=== PATIENT | female | born 1955 | race American Indian/Alaskan Native ===

== ENCOUNTER 2016-08-06 10:44 | Outpatient (CLI) | payer OTHER ==
--- NOTE | 2016-08-06 14:12 | Mammography Report ---
BILATERAL DIGITAL SCREENING MAMMOGRAM with CAD: 08/06/16 10:44:00 CLINICAL: Routine screening. COMPARISON:09/30/14 and 08/29/13 FINDINGS: The breasts are heterogeneously dense, which may obscure small masses. No mass, architectural distortion or suspicious calcifications. IMPRESSION: No mammographic evidence of malignancy. BI-RADS CATEGORY: 1 - - Negative RECOMMENDATION: Routine mammographic screening in one year. COMMENT: Patient follow-up letters are generated by our [employer] application.
== END 2016-08-06 10:45 | disposition home or self-care (01) ==
LOC: MAMMO 10:44
PROVIDERS: ATTEND General Practice
DX: Z12.31 Encounter for screening mammogram for malignant neoplasm of breast (principal)
CPT/HCPCS: 77067; G0202

== ENCOUNTER 2018-09-18 12:50 | Outpatient (CLI) | payer OTHER ==
--- NOTE | 2018-09-20 09:25 | Mammography Report ---
BILATERAL DIGITAL SCREENING MAMMOGRAM WITH CAD INDICATION: Routine screening mammography. TECHNIQUE: Digital bilateral 2D mammography was obtained in the craniocaudal and mediolateral obliq ue projections. This examination was interpreted with the benefit of Computer-Aided Detection analysi s. COMPARISON: 08/06/2016 FINDINGS: Breast Density: The breasts are heterogeneously dense, which may obscure small masses. No mass, architectural distortion or suspicious calcifications. IMPRESSION:No mammographic evidence of malignancy. BI-RADS Category 1: Negative. No mammographic evidence of malignancy. Recommend routine screening m ammography in one year. A "normal" or negative report should not discourage follow up or biopsy of a clinically significant f inding. A written summary of these findings will be mailed to the patient. The patient will be entered into a mammography reporting system which will generate a reminder letter for the patient's next appointmen t at the appropriate interval. The [employer] recommends yearly mammograms starting at age 40 and continuing as l joe as a woman is in good health. Breast MRI is recommended for women with an approximate 20-25% or greater lifetime risk of breast cancer, including women with a strong family history of breast or ova heather cancer or who have been treated for Hodgkin's disease. Signer Name: Héctor Bernard MD Signed: 09/20/2018 9:20 AM Workstation Name: [id number]
== END 2018-09-18 12:51 | disposition home or self-care (01) ==
LOC: MAMMO 12:50
PROVIDERS: ATTEND Hospitalist
DX: Z12.31 Encounter for screening mammogram for malignant neoplasm of breast (principal)
CPT/HCPCS: 77067

== ENCOUNTER 2019-10-03 07:15 | Outpatient (CLI) | payer OTHER ==
--- NOTE | 2019-10-03 13:10 | Mammography Report ---
DIGITAL SCREENING MAMMOGRAM WITH CAD, 10/03/2019 INDICATION: Routine screening mammography. TECHNIQUE: Digital bilateral 2D mammography was obtained in the craniocaudal and mediolateral obliq ue projections. This examination was interpreted with the benefit of Computer-Aided Detection analysi s. COMPARISON: 09/18/2018, 08/06/2016, 09/30/2014 FINDINGS: Breast Density: The breasts are heterogeneously dense, which may obscure small masses. There is no evidence of dominant mass, suspicious calcifications or architectural distortion in eithe r breast. IMPRESSION: Follow up recommendation: Routine yearly BI-RADS Category 1: Negative. A "normal" or negative report should not discourage follow up or biopsy of a clinically significant f inding. A written summary of these findings will be mailed to the patient. The patient will be entered into a mammography reporting system which will generate a reminder letter for the patient's next appointmen t at the appropriate interval. The [employer] recommends yearly mammograms starting at age 40 and continuing as l joe as a woman is in good health. Breast MRI is recommended for women with an approximate 20-25% or greater lifetime risk of breast cancer, including women with a strong family history of breast or ova heather cancer or who have been treated for Hodgkin's disease. Signer Name: Aisha Hunt MD Signed: 10/03/2019 1:06 PM Workstation Name: [id number]
== END 2019-10-03 07:16 | disposition home or self-care (01) ==
LOC: MAMMO 07:15
PROVIDERS: ATTEND Internal Medicine
DX: Z12.31 Encounter for screening mammogram for malignant neoplasm of breast (principal)
CPT/HCPCS: 77067

== ENCOUNTER 2020-10-03 08:59 | Outpatient (CLI) | payer OTHER ==
--- NOTE | 2020-10-06 10:19 | Mammography Report ---
DIGITAL SCREENING MAMMOGRAM WITH CAD, 10/03/2020 CLINICAL INFORMATION / INDICATION: Routine screening mammography. SCREENING MAMMOGRAM TECHNIQUE: Digital bilateral 2D mammography was obtained in the craniocaudal and mediolateral obliqu e projections. This examination was interpreted with the benefit of Computer-Aided Detection analysis . COMPARISON: 10/03/2019 FINDINGS: Breast Density: The breasts are heterogeneously dense, which may obscure small masses. No dominant mass, suspicious calcifications, or architectural distortion in either breast. Largely unchanged nodular densities in the breasts, commonly fibroglandular or fibrocystic change. IMPRESSION: No mammographic evidence of malignancy. Follow up recommendation: Routine yearly BI-RADS Category 2: Benign. A "normal" or negative report should not discourage follow up or biopsy of a clinically significant f inding. A written summary of these findings will be mailed to the patient. The patient will be entered into a mammography reporting system which will generate a reminder letter for the patient's next appointmen t at the appropriate interval. The [employer] recommends yearly mammograms starting at age 40 and continuing as l joe as a woman is in good health. Breast MRI is recommended for women with an approximate 20-25% or greater lifetime risk of breast cancer, including women with a strong family history of breast or ova heather cancer or who have been treated for Hodgkin's disease. Signer Name: Luis Villarreal MD Signed: 10/06/2020 10:14 AM Workstation Name: [id number]
== END 2020-10-03 09:00 | disposition home or self-care (01) ==
LOC: MAMMO 08:59
PROVIDERS: ATTEND Internal Medicine
DX: Z12.31 Encounter for screening mammogram for malignant neoplasm of breast (principal)
CPT/HCPCS: 77067

== ENCOUNTER 2020-11-23 13:00 | Emergency (ER) | payer OTHER ==
--- NOTE | 2020-11-23 13:55 | Emergency Department Report ---
HPI - General Chief Complaint: Rectal Pain Time Seen by Provider: 11/23/20 13:33 - HPI HPI: MSE 5 The patient is a 65-year-old female present with a chief complaint of rectal bleeding. The patient states for the past 3 months she has had rectal bleeding anytime she tries to eat a meal. The patient has a history of hemorrhoids and states they were banded in the spring 2020. The patient states she has not contacted her parking lot spotter about the rectal bleeding since it began 3 months ago. Patient denies abdominal pain but states she has the discomfort of constipation at times. Patient denies nausea/vomiting. Patient denies history of fever or unexplained weight loss. Patient denies rectal pain while having a bowel movement. Patient denies shortness of breath or dizziness. Patient denies fever ED Past Medical Hx - Past Medical History Previous Medical History?: Yes - Surgical History Past Surgical History?: Yes Additional Surgical History: Hemorrhoids banded spring 2020 - Family History Family history: no significant - Social History Smoking Status: Former Smoker (None for over 20 years) Substance Use Type: None (Denies illicit drug use) - Medications Home Medications: Home Medications Medication Instructions Recorded Confirmed Last Taken Type DOXYCYCLINE Hyclate [Vibramycin 100 mg PO Q12H #14 capsule 08/09/13 Unknown Rx CAP] Cyclobenzaprine [Flexeril 10 MG 10 mg PO QHS #20 tablet 01/20/18 Unknown Rx TAB] Ibuprofen [Motrin 800 MG tab] 800 mg PO TID #30 tablet 01/20/18 Unknown Rx Ciprofloxacin HCl 500 mg PO BID #14 tablet 11/23/20 Unknown Rx metroNIDAZOLE [Flagyl] 500 mg PO Q8HR #21 tablet 11/23/20 Unknown Rx ED Review of Systems ROS: Stated complaint: HEMORRHOIDS/BLEEDING PASSING CLOTS Other details as noted in HPI Constitutional: denies: fever Eyes: denies: eye pain ENT: throat pain Respiratory: denies: shortness of breath Cardiovascular: denies: chest pain Endocrine: no symptoms reported Gastrointestinal: hematochezia. denies: abdominal pain, nausea, vomiting, hematemesis Genitourinary: denies: dysuria Musculoskeletal: denies: back pain Neurological: denies: headache Physical Exam - Physical Exam Vital Signs: Vital Signs 11/23/20 13:21 Temperature 97.8 F Pulse Rate 91 H Respiratory 18 Rate Blood Pressure 139/78 [Right] O2 Sat by Pulse 100 Oximetry Physical Exam: GENERAL: The patient is well-developed well-nourished female sitting in chair not appearing to be in acute distress HEENT: Normocephalic. Atraumatic. Extraocular motions are intact. Patient has moist mucous membranes. NECK: Supple. Trachea midline CHEST/LUNGS: Clear to auscultation. There is no respiratory distress noted. HEART/CARDIOVASCULAR: Regular. There is no tachycardia. There is no gallop rub or murmur. ABDOMEN: Abdomen is soft, nontender. Patient has normal bowel sounds. There is no abdominal distention. SKIN: There is no rash. There is no edema. There is no diaphoresis. NEURO: The patient is awake, alert, and oriented. The patient is cooperative. The patient has no focal neurologic deficits. The patient has normal speech and gait. MUSCULOSKELETAL: There is no evidence of acute injury. RECTAL: ED Course Vital Signs 11/23/20 13:21 Temperature 97.8 F Pulse Rate 91 H Respiratory 18 Rate Blood Pressure 139/78 [Right] O2 Sat by Pulse 100 Oximetry - Consultations Consultation #1: 11/23/20 17:09 GI paged 11/23/20 17:[address] findings discussed with GI and Dr. Rose-recommends ciprofloxacin 500 mg twice daily and Flagyl 500 mg 3 times daily x7 days and GI follow-up. ED Medical Decision Making - Lab Data Result diagrams: 11/23/20 14:03 11/23/20 14:03 Laboratory Tests 11/23/20 11/23/20 11/23/20 14:03 14:03 14:03 WBC 11.3 H RBC 3.44 L Hgb 10.8 Hct 31.9 MCV 93 MCH 32 MCHC 34 RDW 16.4 H Plt Count 302 Lymph % (Auto) 18.9 [place] % (Auto) 8.4 H Eos % (Auto) 8.7 H Baso % (Auto) 0.6 Lymph # (Auto) 2.2 [place] # (Auto) 1.0 H Eos # (Auto) 1.0 H Baso # (Auto) 0.1 Add Manual Diff Complete Total Counted 100 Seg Neutrophils % 63.4 Seg Neuts % (Manual) 60.0 Band Neutrophils % 1.0 Lymphocytes % (Manual) 14.0 Monocytes % (Manual) 7.0 Eosinophils % (Manual) 16.0 H Metamyelocytes % 2.0 Nucleated RBC % Not Reportable Seg Neutrophils # 7.4 Seg Neutrophils # Man 6.8 Band Neutrophils # 0.1 Lymphocytes # (Manual) 1.6 Abs React Lymphs (Man) 0.0 Monocytes # (Manual) 0.8 Eosinophils # (Manual) 1.8 H Basophils # (Manual) 0.0 Metamyelocytes # 0.2 Myelocytes # 0.0 Promyelocytes # 0.0 Blast Cells # 0.0 WBC Morphology Not Reportable Hypersegmented Neuts Not Reportable Hyposegmented Neuts Not Reportable Hypogranular Neuts Not Reportable Smudge Cells Not Reportable Toxic Granulation Not Reportable Toxic Vacuolation Not Reportable Dohle Bodies Not Reportable Pelger-Huet Anomaly Not Reportable Lisandro Rods Not Reportable Platelet Estimate Consistent w auto Clumped Platelets Not Reportable Plt Clumps, EDTA Not Reportable Large Platelets Not Reportable Giant Platelets Not Reportable Platelet Satelliting Not Reportable Plt Morphology Comment Not Reportable RBC Morphology Not Reportable Dimorphic RBCs Not Reportable Polychromasia Not Reportable Hypochromasia Not Reportable Poikilocytosis Not Reportable Anisocytosis 1+ Microcytosis Not Reportable Macrocytosis Not Reportable Spherocytes Not Reportable Pappenheimer Bodies Not Reportable Sickle Cells Not Reportable Target Cells Not Reportable Tear Drop Cells Not Reportable Ovalocytes Not Reportable Helmet Cells Not Reportable Steele-Bennett Bodies Not Reportable Garner Rings Not Reportable [place] Cells Not Reportable Bite Cells Not Reportable Crenated Cell Not Reportable Elliptocytes Not Reportable Acanthocytes (Spur) Not Reportable Rouleaux Not Reportable Hemoglobin C Crystals Not Reportable Schistocytes Not Reportable Malaria parasites Not Reportable [place] Bodies Not Reportable Hem Pathologist Commnt No PT 13.3 INR 0.96 APTT 27.3 Sodium 145 Potassium 4.0 Chloride 109.6 H Carbon Dioxide 27 Anion Gap 12 BUN 16 Creatinine 0.5 L Estimated GFR > 60 BUN/Creatinine Ratio 32 Glucose 115 H Calcium 8.9 Total Bilirubin 0.30 AST 14 ALT 12 Alkaline Phosphatase 70 Total Protein 6.6 Albumin 3.2 L Albumin/Globulin Ratio 0.9 - Radiology Data Radiology results: report reviewed (CT abdomen pelvis), image reviewed (CT abdomen pelvis) [facility] [address] [place] [address] Cat Scan Report Signed Patient: ANGUS ABBASI MR#: [id number] : 1955 Acct:[id number] Age/Sex: 65 / F ADM Date: 11/23/20 Loc: ED Attending Dr: Ordering Physician: CUCA ALARCON MD Date of Service: 11/23/20 Procedure(s): CT angio abdomen pelvis Accession Number(s): [id number] cc: CUCA ALARCON MD CTA ABDOMEN AND PELVIS with IV CONTRAST INDICATION / CLINICAL INFORMATION: Rectal bleeding. TECHNIQUE: Axial CT images were obtained through the abdomen and pelvis after injection of 100 mL of Omnipaque 350 IV contrast. 3 plane MIP / 3D reconstructions were produced. All CT scans at this location are performed using CT dose reduction for ALARA by means of automated exposure control. COMPARISON: None available. FINDINGS: Vascular Findings: Moderate atherosclerotic calcification of the aortoiliac system. There is no evidence of aneurysm. No significant flow-limiting stenosis or occlusion.. Nonvascular Findings: Nonobstructive bilateral nephrolithiasis. There is no ureteral calculus or hydronephrosis. Small hiatal hernia. Small bowel is normal in caliber. There is moderate colonic stool burden within the proximal colon. Diffuse mural thickening of the sigmoid colon and rectum with mucosal enhancement and mild pericolonic inflammatory stranding. Nonspecific prominent perirectal lymph nodes are likely reactive. No evidence of active intraluminal hemorrhage. Skeletal Structures: Scattered degenerative changes of the spine. No acute abnormality identified. IMPRESSION: 1. Mural thickening, mucosal enhancement and mild inflammatory stranding involving the sigmoid colon and rectum, most compatible with acute infectious or inflammatory proctocolitis. No evidence of active intraluminal hemorrhage. 2. Otherwise, no acute abnormality. Signer Name: Danielito Carter MD Signed: 11/23/2020 5:01 PM Workstation Name: [id number] Transcribed By: JASSON Dictated By: DANIELITO CARTER MD Electronically Authenticated By: DANIELITO CARTER MD Signed Date/Time: 11/23/20 170 DD/ 55 TD/TT: Print Cancel - Differential Diagnosis Hemorrhoids, anal fissure, diverticulosis, colonic mass Critical care attestation.: If time is entered above; I have spent that time in minutes in the direct care of this critically ill patient, excluding procedure time. ED Disposition Clinical Impression: Proctocolitis, Rectal bleeding Disposition: 01 HOME / SELF CARE / HOMELESS Is pt being admited?: No Does the pt Need Aspirin: No Condition: Stable Instructions: Rectal Bleeding, [id number] Additional Instructions: Return to the emergency department should you develop worsening symptoms, inability to tolerate food or liquids, high fever or any other concerns Prescriptions: Ciprofloxacin HCl 500 mg PO BID #14 tablet metroNIDAZOLE [Flagyl] 500 mg PO Q8HR #21 tablet Referrals: DIONNE ROSE MD [Staff Physician] - [facility] (Dr. Rose is a parking lot spotter. Please follow-up with him or your parking lot spotter for further evaluation) Time of Disposition: 17:27
[2020-11-23 14:25] LABS: Hematocrit 31.9 % (30.3-42.9); Hemoglobin 10.8 gm/dl (10.1-14.3); Mean Corpuscular HGB Conc 34 % (30-34); Mean Corpuscular Volume 93 fl (79-97); Platelet Count 302 K/mm3 (140-440); Red Blood Count 3.44 M/mm3 (3.65-5.03); Red Cell Distribution Width 16.4 % (13.2-15.2)
[2020-11-23 14:36] LABS: INR 0.96 (0.87-1.13); Partial Thromboplastin Time 27.3 Sec. (24.2-36.6)
[2020-11-23 14:43] LABS: Alanine Aminotransferase 12 units/L (7-56); Albumin 3.2 g/dL (3.9-5); Blood Urea Nitrogen 16 mg/dL (7-17); Calcium 8.9 mg/dL (8.4-10.2); Hemolysis Index 0
[2020-11-23 14:49] LABS: BUN/Creatinine Ratio 32
[2020-11-23 15:17] LABS: Band Neutrophils # (Manual) 0.1 K/mm3; Basophils # (Auto) 0.1 K/mm3 (0.0-0.1); Basophils % (Auto) 0.6 % (0.0-1.8); Eosinophils % (Auto) 8.7 % (0.0-4.3); Lymphocytes # (Auto) 2.2 K/mm3 (1.2-5.4); Lymphocytes % (Auto) 18.9 % (13.4-35.0); Monocytes % (Auto) 8.4 % (0.0-7.3); Total Cells Counted 100
[2020-11-23 15:18] LABS: Anisocytosis 1+; Platelet Estimate Consistent w Auto
[2020-11-23 15:54] VITALS: BP 119/88
--- NOTE | 2020-11-23 17:06 | Cat Scan Report ---
CTA ABDOMEN AND PELVIS with IV CONTRAST INDICATION / CLINICAL INFORMATION: Rectal bleeding. TECHNIQUE: Axial CT images were obtained through the abdomen and pelvis after injection of 100 mL of Omnipaque 3 50 IV contrast. 3 plane MIP / 3D reconstructions were produced. All CT scans at this location are per formed using CT dose reduction for ALARA by means of automated exposure control. COMPARISON: None available. FINDINGS: Vascular Findings: Moderate atherosclerotic calcification of the aortoiliac system. There is no evide nce of aneurysm. No significant flow-limiting stenosis or occlusion.. Nonvascular Findings: Nonobstructive bilateral nephrolithiasis. There is no ureteral calculus or hydr onephrosis. Small hiatal hernia. Small bowel is normal in caliber. There is moderate colonic stool bu rden within the proximal colon. Diffuse mural thickening of the sigmoid colon and rectum with mucosal enhancement and mild pericolonic inflammatory stranding. Nonspecific prominent perirectal lymph node s are likely reactive. No evidence of active intraluminal hemorrhage. Skeletal Structures: Scattered degenerative changes of the spine. No acute abnormality identified. IMPRESSION: 1. Mural thickening, mucosal enhancement and mild inflammatory stranding involving the sigmoid colon and rectum, most compatible with acute infectious or inflammatory proctocolitis. No evidence of activ e intraluminal hemorrhage. 2. Otherwise, no acute abnormality. Signer Name: Paul Carter MD Signed: 11/23/2020 5:01 PM Workstation Name: [id number]
== END 2020-11-23 17:58 | disposition home or self-care (01) ==
LOC: ED 13:00
DX: K52.89 Other specified noninfective gastroenteritis and colitis (principal); K62.5 Hemorrhage of anus and rectum; Z98.890 Other specified postprocedural states; Z87.891 Personal history of nicotine dependence
CPT/HCPCS: 36415; 74174; 80053; 82271; 85007; 85025; 85610; 85730; 99284; Q9967

== ENCOUNTER 2021-02-21 22:52 | Inpatient (IN) | payer SELFPAY, OTHER ==
[2021-02-21] MEDS ORDERED: dexAMETHasone 4 MG/ML VIAL IV ONE (23:03)
--- NOTE | 2021-02-22 | XRay Report ---
CHEST 1 VIEW INDICATION / CLINICAL INFORMATION: Dyspnea. COMPARISON: None available. FINDINGS: SUPPORT DEVICES: None. HEART / MEDIASTINUM: No significant abnormality. LUNGS / PLEURA: No significant pulmonary or pleural abnormality. No pneumothorax. Please note that ev aluation of the lung parenchyma is somewhat obscured by overlying materials. ADDITIONAL FINDINGS: There is moderate elevation of the right hemidiaphragm which is chronic. IMPRESSION: 1. No acute findings. Signer Name: Clover Easley MD Signed: 02/21/2021 11:56 PM Workstation Name: [id number]
[2021-02-22 00:08] LABS: Hematocrit 29.7 % (30.3-42.9); Hemoglobin 9.1 gm/dl (10.1-14.3); Mean Corpuscular HGB Conc 31 % (30-34); Mean Corpuscular Volume 102 fl (79-97); Platelet Count 232 K/mm3 (140-440); Red Blood Count 2.91 M/mm3 (3.65-5.03)
[2021-02-22] MEDS ORDERED: cefTRIAXone/NS 1 GM/50 ML 1 GM/50 ML BAG IV ONE (00:16)
[2021-02-22] MEDS ORDERED: SODIUM CHLORIDE 0.9% 1000 ML 1,000 ML IV ONE (00:17)
[2021-02-22 00:25] LABS: INR 1.05 (0.87-1.13)
[2021-02-22 00:27] LABS: Red Cell Distribution Width 20.5 % (13.2-15.2)
[2021-02-22 00:32] LABS: Creatine Kinase MB 2.9 ng/mL (0.0-4.0)
[2021-02-22 00:33] LABS: Alanine Aminotransferase 10 units/L (7-56); Albumin 2.7 g/dL (3.9-5); Blood Urea Nitrogen 9 mg/dL (7-17); Calcium 8.2 mg/dL (8.4-10.2); Hemolysis Index 6
[2021-02-22 00:43] LABS: BUN/Creatinine Ratio 15
--- NOTE | 2021-02-22 00:44 | Emergency Department Report ---
ED Shortness of Breath HPI - General Chief Complaint: Dyspnea/Respdistress Stated Complaint: RESP DISTRESS Time Seen by Provider: 02/21/21 22:58 Source: patient Mode of arrival: Stretcher Limitations: No Limitations - History of Present Illness MD Complaint: shortness of breath -: Gradual, days(s) Consistency: constant Improves With: oxygen Worsens With: nothing Known History Of: other Context: recent URI - Related Data Home Oxygen Therapy: No Previous Rx's Medication Instructions Recorded Last Taken Type DOXYCYCLINE Hyclate [Vibramycin 100 mg PO Q12H #14 capsule 08/09/13 Unknown Rx CAP] Cyclobenzaprine [Flexeril 10 MG 10 mg PO QHS #20 tablet 01/20/18 Unknown Rx TAB] Ibuprofen [Motrin 800 MG tab] 800 mg PO TID #30 tablet 01/20/18 Unknown Rx Ciprofloxacin HCl 500 mg PO BID #14 tablet 11/23/20 Unknown Rx metroNIDAZOLE [Flagyl] 500 mg PO Q8HR #21 tablet 11/23/20 Unknown Rx Allergies Allergy/AdvReac Type Severity Reaction Status Date / Time lisinopril AdvReac Anaphylaxis Verified 02/22/21 00:02 ED Review of Systems ROS: Stated complaint: RESP DISTRESS Other details as noted in HPI Constitutional: denies: chills, fever Eyes: denies: eye pain, eye discharge, vision change ENT: denies: ear pain, throat pain Respiratory: denies: cough, shortness of breath, wheezing Cardiovascular: denies: chest pain, palpitations Endocrine: no symptoms reported Gastrointestinal: denies: abdominal pain, nausea, diarrhea Genitourinary: denies: urgency, dysuria, discharge Musculoskeletal: denies: back pain, joint swelling, arthralgia Skin: denies: rash, lesions Neurological: denies: headache, weakness, paresthesias Psychiatric: denies: anxiety, depression Hematological/Lymphatic: denies: easy bleeding, easy bruising ED Past Medical Hx - Past Medical History Previous Medical History?: Yes Additional medical history: hemorrhoids that have been banded in the past per pt, HYPOKALEMIA, PE - Surgical History Additional Surgical History: Hemorrhoids banded spring 2020, IVC PLACEMENT - Social History Smoking Status: Former Smoker (None for over 20 years) Substance Use Type: None (Denies illicit drug use) - Medications Home Medications: Home Medications Medication Instructions Recorded Confirmed Last Taken Type DOXYCYCLINE Hyclate [Vibramycin 100 mg PO Q12H #14 capsule 08/09/13 Unknown Rx CAP] Cyclobenzaprine [Flexeril 10 MG 10 mg PO QHS #20 tablet 01/20/18 Unknown Rx TAB] Ibuprofen [Motrin 800 MG tab] 800 mg PO TID #30 tablet 01/20/18 Unknown Rx Ciprofloxacin HCl 500 mg PO BID #14 tablet 11/23/20 Unknown Rx metroNIDAZOLE [Flagyl] 500 mg PO Q8HR #21 tablet 11/23/20 Unknown Rx ED Physical Exam - General Limitations: No Limitations General appearance: alert, in distress - Head Head exam: Present: atraumatic, normocephalic - Eye Eye exam: Present: normal appearance - ENT ENT exam: Present: mucous membranes moist - Neck Neck exam: Present: normal inspection - Respiratory Respiratory exam: Present: normal lung sounds bilaterally, rales, accessory muscle use. Absent: respiratory distress - Cardiovascular Cardiovascular Exam: Present: regular rate, tachycardia. Absent: systolic murmur, diastolic murmur, rubs, gallop - GI/Abdominal GI/Abdominal exam: Present: soft, normal bowel sounds - Extremities Exam Extremities exam: Present: normal inspection - Back Exam Back exam: Present: normal inspection - Neurological Exam Neurological exam: Present: alert, oriented X3 - Psychiatric Psychiatric exam: Present: normal affect, normal mood - Skin Skin exam: Present: warm, dry, intact, normal color. Absent: rash ED Course Vital Signs 02/21/21 02/22/21 23:02 00:00 Temperature 97.4 F L Pulse Rate 156 H 148 H Respiratory 24 23 Rate Blood Pressure 79/40 88/42 [Right] O2 Sat by Pulse 72 L 92 Oximetry ED Medical Decision Making - Lab Data Result diagrams: 02/21/21 23:50 02/21/21 23:50 Critical care attestation.: If time is entered above; I have spent that time in minutes in the direct care of this critically ill patient, excluding procedure time. ED Disposition Clinical Impression: SOB (shortness of breath), Acute hypoxemic respiratory failure due to COVID-19 Disposition: 09 ADMITTED INPATIENT Is pt being admited?: Yes Does the pt Need Aspirin: No Condition: Critical Referrals: PRIMARY CARE,MD [Primary Care Provider] - 3-5 Days
[2021-02-22 01:52] LABS: HDL Cholesterol 46 mg/dL (40-59); LDL Cholesterol,Direct 100 mg/dL (50-130)
[2021-02-22] MEDS ORDERED: ALBUTEROL 2.5 MG/3 ML NEBU IH PRN (02:24)
[2021-02-22] MEDS ORDERED: MORPHINE 2 MG/1 ML INJ IV PRN (02:24)
[2021-02-22] MEDS ORDERED: ONDANSETRON 4 MG/2 ML INJ IV PRN (02:24)
[2021-02-22] MEDS ORDERED: HYDROmorphone 1 MG/1 ML INJ IV PRN (02:24)
--- NOTE | 2021-02-22 02:32 | History and Physical Report ---
History of Present Illness Date of examination: 02/22/21 Date of admission: 02/22/21 00:43 Chief complaint: Dyspnea Respiratory distress History of present illness: 65 years old female with past medical history of hypokalemia, PE and former tobacco abuse was brought to the hospital because of progressive shortness of breath for last 1 to 2 days. Shortness of breath is gradual improved with oxygen . Patient has recent episode of upper respiratory tract infection In the emergency room patient initial O2 sat was 72% which is improved with 50% Ventimask to 92%. We are going to admit the patient with a diagnosis of suspected PUI/Covid Past History Past Medical History: other (PE. Hypokalemia. Hemorrhoid. Former tobacco abuser) Medications and Allergies Allergies Allergy/AdvReac Type Severity Reaction Status Date / Time lisinopril AdvReac Anaphylaxis Verified 02/22/21 00:02 Home Medications Medication Instructions Recorded Confirmed Last Taken Type DOXYCYCLINE Hyclate [Vibramycin 100 mg PO Q12H #14 capsule 08/09/13 Unknown Rx CAP] Cyclobenzaprine [Flexeril 10 MG 10 mg PO QHS #20 tablet 01/20/18 Unknown Rx TAB] Ibuprofen [Motrin 800 MG tab] 800 mg PO TID #30 tablet 01/20/18 Unknown Rx Ciprofloxacin HCl 500 mg PO BID #14 tablet 11/23/20 Unknown Rx metroNIDAZOLE [Flagyl] 500 mg PO Q8HR #21 tablet 11/23/20 Unknown Rx Review of Systems All systems: negative Cardiovascular: shortness of breath Respiratory: cough, shortness of breath, congestion Exam - Constitutional Vitals: Temp Pulse Resp BP Pulse Ox 97.4 F L 132 H 20 87/53 98 02/21/21 23:02 02/22/21 01:00 02/22/21 01:00 02/22/21 01:00 02/22/21 01:00 General appearance: Present: no acute distress, well-nourished - EENT Eyes: Present: PERRL ENT: hearing intact, clear oral mucosa - Neck Neck: Present: supple, normal ROM - Respiratory Respiratory effort: normal Respiratory: bilateral: diminished - Cardiovascular Heart Sounds: Present: S1 & S2. Absent: rub, click - Extremities Extremities: pulses symmetrical, No edema Peripheral Pulses: within normal limits - Abdominal General gastrointestinal: Present: soft, non-tender, non-distended, normal bowel sounds Female genitourinary: Present: normal - Integumentary Integumentary: Present: clear, warm, dry - Musculoskeletal Musculoskeletal: gait normal, strength equal bilaterally - Psychiatric Psychiatric: appropriate mood/affect, intact judgment & insight - Neurologic Neurologic: CNII-XII intact, moves all extremities HEART Score - HEART Score Troponin: Troponin T 0.104 ng/mL (0.00-0.029) H* 02/21/21 23:50 Results - Labs CBC & Chem 7: 02/21/21 23:50 02/21/21 23:50 Labs: Laboratory Last Values WBC 10.8 K/mm3 (4.5-11.0) 02/21/21 23:50 RBC 2.91 M/mm3 (3.65-5.03) L 02/21/21 23:50 Hgb 9.1 gm/dl (10.1-14.3) L 02/21/21 23:50 Hct 29.7 % (30.3-42.9) L 02/21/21 23:50 MCV 102 fl (79-97) H 02/21/21 23:50 MCH 31 pg (28-32) 02/21/21 23:50 MCHC 31 % (30-34) 02/21/21 23:50 RDW 20.5 % (13.2-15.2) H 02/21/21 23:50 Plt Count 232 K/mm3 (140-440) 02/21/21 23:50 PT 14.9 Sec. (12.2-14.9) 02/21/21 23:50 INR 1.05 (0.87-1.13) 02/21/21 23:50 Sodium 139 mmol/L (137-145) 02/21/21 23:50 Potassium 4.2 mmol/L (3.6-5.0) 02/21/21 23:50 Chloride 103.5 mmol/L (98-107) 02/21/21 23:50 Carbon Dioxide 20 mmol/L (22-30) L 02/21/21 23:50 Anion Gap 20 mmol/L 02/21/21 23:50 BUN 9 mg/dL (7-17) 02/21/21 23:50 Creatinine 0.6 mg/dL (0.6-1.2) 02/21/21 23:50 Estimated GFR > 60 ml/min 02/21/21 23:50 BUN/Creatinine Ratio 15 % 02/21/21 23:50 Glucose 198 mg/dL (65-100) H 02/21/21 23:50 Lactic Acid 2.10 mmol/L (0.7-2.0) H* 02/22/21 01:14 Calcium 8.2 mg/dL (8.4-10.2) L 02/21/21 23:50 Magnesium 1.80 mg/dL (1.7-2.3) 02/21/21 23:50 Total Bilirubin 0.40 mg/dL (0.1-1.2) 02/21/21 23:50 AST 15 units/L (5-40) 02/21/21 23:50 ALT 10 units/L (7-56) 02/21/21 23:50 Alkaline Phosphatase 62 units/L (35-129) 02/21/21 23:50 Total Creatine Kinase 17 units/L (30-135) L 02/21/21 23:50 CK-MB (CK-2) 2.9 ng/mL (0.0-4.0) 02/21/21 23:50 CK-MB (CK-2) Rel Index 17.0 (0-4) H 02/21/21 23:50 Troponin T 0.104 ng/mL (0.00-0.029) H* 02/21/21 23:50 Total Protein 5.3 g/dL (6.3-8.2) L 02/21/21 23:50 Albumin 2.7 g/dL (3.9-5) L 02/21/21 23:50 Albumin/Globulin Ratio 1.0 % 02/21/21 23:50 Triglycerides 93 mg/dL (2-149) 02/21/21 23:50 Cholesterol 161 mg/dL (50-199) 02/21/21 23:50 LDL Cholesterol Direct 100 mg/dL (50-130) 02/21/21 23:50 HDL Cholesterol 46 mg/dL (40-59) 02/21/21 23:50 Cholesterol/HDL Ratio 3.50 % 02/21/21 23:50 Lipase 24 units/L (13-60) 02/21/21 23:50 - Imaging and Cardiology Chest x-ray: report reviewed Assessment and Plan VTE prophylaxis?: Chemical Plan of care discussed with patient/family: Yes - Patient Problems (1) Acute hypoxemic respiratory failure due to COVID-19 Current Visit: Yes Status: Acute Plan to address problem: Admit the patient to the medical floor. Oxygen 50% Ventimask. DuoNeb by nebulizer every 4 hours. Albuterol via nebulizer every 4 hours as needed. Rocephin 2 g IV daily. Zithromax 500 mg IV daily. Dexamethasone 6 mg IV daily. We do the blood culture and sputum culture. We will send the Covid PCR. Follow Covid inflammatory marker. Will consult infectious disease for evaluation. (2) SOB (shortness of breath) Current Visit: Yes Status: Acute Plan to address problem: Oxygen by 50% Ventimask. DuoNeb by nebulizer every 4 hours. Albuterol via nebulizer every 4 hours as needed (3) Hemorrhoid Current Visit: Yes Status: Acute Plan to address problem: Hemorrhoid branded in spring 2020 (4) DVT prophylaxis Current Visit: Yes Status: Acute Plan to address problem: Heparin 5000 units subcu every 8 hours for DVT prophylaxis. Pepcid 20 mg p.o. twice daily for GI prophylaxis. Patient is a full code
[2021-02-22 02:47] LABS: Band Neutrophils # (Manual) 1.6 K/mm3; Total Cells Counted 100
[2021-02-22 02:48] LABS: Anisocytosis 1+; Platelet Estimate Consistent w Auto
[2021-02-22] MEDS: AZITHROMYCIN/NS 500 MG/250 ML 500 MG/250 ML BAG IV SCH (05:51)
[2021-02-22] MEDS ORDERED: HEPARIN 5,000 UNIT/1 ML VIAL SUB-Q SCH (06:00)
[2021-02-22] MEDS: IBUPROFEN 800 MG TAB PO SCH ×3 (08:10→21:24)
--- NOTE | 2021-02-22 08:19 | Progress Note ---
Assessment and Plan Assessment and plan: History of present illness: 65 years old female with past medical history of hypokalemia, PE and former tobacco abuse was brought to the hospital because of progressive shortness of breath for last 1 to 2 days. Shortness of breath is gradual improved with oxygen . Patient has recent episode of upper respiratory tract infection In the emergency room patient initial O2 sat was 72% which is improved with 50% Ventimask to 92%. We are going to admit the patient with a diagnosis of suspected PUI/Covid Hospital course: 02/22/2021: Patient primary complaint is shortnes of breath and dizziness. orthostatic vitals, echo, mri, neuro consult ordered. Has a history of pulmonary embolism but cannot anticoagulate. Elevated troponin noted. Suspect PE related but will follow cardiology recommendations. Doubt cardiac etiology. Assessment and plan: #Acute hypoxic respiratory failure - Admit the patient to the medical floor. - Oxygen 50% Ventimask currently, SPO2: 96% on my encounter -DuoNeb by nebulizer every 4 hours. -Albuterol via nebulizer every 4 hours as needed. -Rocephin 2 g IV daily. Zithromax 500 mg IV daily. Dexamethasone 6 mg IV daily. -We do the blood culture and sputum culture. -We will send the Covid PCR. Follow Covid inflammatory marker. - Will consult infectious disease for evaluation. #Dizziness/vertigo -Onset was approximately 1 month ago. has persisted and patient now unable to walk -Unclear etiology, suspect orthostatic hypotension given low blood pressure readings with improvement in positional changes -orthostatic vitals ordered -ECHO ordered -MRI ordered -neurology consult placed. #History of pulmonary embolism/DVT -Diagnosed with DVT in the past was started on anticoagulation however developed rectal bleeding -will request records -Status post IVC filter -Could explain elevated troponin #Elevated troponin -Unclear if this is an NSTEMI, patient does not complain of any chest pain however she is short of breath. -Suspect this is supply demand versus underlying pulmonary embolism diagnosed at [place] -Troponin 0.104 -Echocardiogram ordered -ECG ordered -Atorvastatin ordered, will hold off on heparin drip due to history of rectal bleeding. Will hold off on beta-renato due to patient dizziness and suspicion for orthostatic hypotension Cardiology consulted #Person under investigation for COVID-19 - low suspicion, patient is vaccinated x 3, afebrile, no reports of muscle aches, cough, congestion. - COVID PCR ordered on admission #History of rectal bleeding - avoid anticoagulation #History of IVC filter - history of recurrent dvt. - obtained filter last month at [facility]. History Interval history: On my encounter, patient described to me her last 2-month hospital course. She had been originally admitted to [facility] approximately 2 months ago for deep vein thrombosis. She was started on anticoagulant at the time of discharge. She states that she had a subsequent hospital shortly after where s he developed rectal bleeding and had shortness of breath. She says that she underwent CT chest which demonstrated bilateral pulmonary embolism. She received an IVC filter and was told not to continue anticoagulants. She was subsequently discharged to a rehab facility. Patient had been in rehab facility last week or so and states that she has had continued issues with leg pain, dizziness, shortness of breath. Anytime the patient tries to ambulate she states that she becomes very dizzy and has to return to a seated position. She has no prior cardiac work-up to her knowledge and no significant cardiac history. Patient states that she is not a smoker. She denies any family history of cardiac issues. On my encounter her primary complaint was shortness of breath and dizziness. There are a few hypotensive recordings in the chart. Discussed with RN who stated patient was repositioned and her blood pressure improved. Discussed with RN regarding obtaining orthostatic vitals. Hospitalist Physical - Physical exam Narrative exam: Physical Exam: VITAL SIGNS: Reviewed. GENERAL: The patient appears normally developed, Vital signs as documented. ventimask in place, appears comfortable. HEAD: No signs of head trauma. EYES: Pupils are equal. Extraocular motions intact. EARS: Hearing grossly intact. MOUTH: Oropharynx is normal. NECK: No adenopathy, no JVD. CHEST: Chest with clear breath sounds bilaterally. CARDIAC: Regular rate and rhythm. S1 and S2, without murmurs, gallops, or rubs. VASCULAR: No Edema. Peripheral pulses normal and equal in all extremities. ABDOMEN: Soft, non tender and non distended. No rebound or guarding, and no masses palpated. Bowel Sounds normal. MUSCULOSKELETAL: Good range of motion of all major joints. Extremities without clubbing, cyanosis or edema. NEUROLOGIC EXAM: Alert and oriented x 4. no focal sensory or strength deficits. PSYCHIATRIC: Mood normal. SKIN: detail exam as documented in skin assessment - Constitutional Vitals: Temp Pulse Resp BP Pulse Ox 97.4 F L 103 H 18 89/60 98 02/21/21 23:02 02/22/21 07:00 02/22/21 07:00 02/22/21 07:00 02/22/21 07:00 General appearance: Present: no acute distress, well-nourished HEART Score - HEART Score Troponin: Troponin T 0.104 ng/mL (0.00-0.029) H* 02/21/21 23:50 Results - Labs CBC & Chem 7: 02/21/21 23:50 02/21/21 23:50 Labs: Laboratory Last Values WBC 10.8 K/mm3 (4.5-11.0) 02/21/21 23:50 RBC 2.91 M/mm3 (3.65-5.03) L 02/21/21 23:50 Hgb 9.1 gm/dl (10.1-14.3) L 02/21/21 23:50 Hct 29.7 % (30.3-42.9) L 02/21/21 23:50 MCV 102 fl (79-97) H 02/21/21 23:50 MCH 31 pg (28-32) 02/21/21 23:50 MCHC 31 % (30-34) 02/21/21 23:50 RDW 20.5 % (13.2-15.2) H 02/21/21 23:50 Plt Count 232 K/mm3 (140-440) 02/21/21 23:50 Add Manual Diff Complete 02/21/21 23:50 Total Counted 100 02/21/21 23:50 Seg Neuts % (Manual) 81.0 % (40.0-70.0) H 02/21/21 23:50 Band Neutrophils % 15.0 % 02/21/21 23:50 Lymphocytes % (Manual) 4.0 % (13.4-35.0) L 02/21/21 23:50 Nucleated RBC % 1.0 % (0.0-0.9) H 02/21/21 23:50 Seg Neutrophils # Man 8.7 K/mm3 (1.8-7.7) H 02/21/21 23:50 Band Neutrophils # 1.6 K/mm3 02/21/21 23:50 Lymphocytes # (Manual) 0.4 K/mm3 (1.2-5.4) L 02/21/21 23:50 Abs React Lymphs (Man) 0.0 K/mm3 02/21/21 23:50 Monocytes # (Manual) 0.0 K/mm3 (0.0-0.8) 02/21/21 23:50 Eosinophils # (Manual) 0.0 K/mm3 (0.0-0.4) 02/21/21 23:50 Basophils # (Manual) 0.0 K/mm3 (0.0-0.1) 02/21/21 23:50 Metamyelocytes # 0.0 K/mm3 02/21/21 23:50 Myelocytes # 0.0 K/mm3 02/21/21 23:50 Promyelocytes # 0.0 K/mm3 02/21/21 23:50 Blast Cells # 0.0 K/mm3 02/21/21 23:50 WBC Morphology Not Reportable 02/21/21 23:50 Hypersegmented Neuts Not Reportable 02/21/21 23:50 Hyposegmented Neuts Not Reportable 02/21/21 23:50 Hypogranular Neuts Not Reportable 02/21/21 23:50 Smudge Cells Not Reportable 02/21/21 23:50 Toxic Granulation Not Reportable 02/21/21 23:50 Toxic Vacuolation Not Reportable 02/21/21 23:50 Dohle Bodies Not Reportable 02/21/21 23:50 Pelger-Huet Anomaly Not Reportable 02/21/21 23:50 Lisandro Rods Not Reportable 02/21/21 23:50 Platelet Estimate Consistent w auto 02/21/21 23:50 Clumped Platelets Not Reportable 02/21/21 23:50 Plt Clumps, EDTA Not Reportable 02/21/21 23:50 Large Platelets Not Reportable 02/21/21 23:50 Giant Platelets Not Reportable 02/21/21 23:50 Platelet Satelliting Not Reportable 02/21/21 23:50 Plt Morphology Comment Not Reportable 02/21/21 23:50 RBC Morphology Not Reportable 02/21/21 23:50 Dimorphic RBCs Not Reportable 02/21/21 23:50 Polychromasia Few 02/21/21 23:50 Hypochromasia Not Reportable 02/21/21 23:50 Poikilocytosis Not Reportable 02/21/21 23:50 Anisocytosis 1+ 02/21/21 23:50 Microcytosis Not Reportable 02/21/21 23:50 Macrocytosis Not Reportable 02/21/21 23:50 Spherocytes Not Reportable 02/21/21 23:50 Pappenheimer Bodies Not Reportable 02/21/21 23:50 Sickle Cells Not Reportable 02/21/21 23:50 Target Cells Not Reportable 02/21/21 23:50 Tear Drop Cells Not Reportable 02/21/21 23:50 Ovalocytes Not Reportable 02/21/21 23:50 Helmet Cells Not Reportable 02/21/21 23:50 [place] Bodies Not Reportable 02/21/21 23:50 [place] Rings Not Reportable 02/21/21 23:50 [place] Cells Not Reportable 02/21/21 23:50 Bite Cells Not Reportable 02/21/21 23:50 Crenated Cell Not Reportable 02/21/21 23:50 Elliptocytes Not Reportable 02/21/21 23:50 Acanthocytes (Spur) Not Reportable 02/21/21 23:50 Rouleaux Not Reportable 02/21/21 23:50 Hemoglobin C Crystals Not Reportable 02/21/21 23:50 Schistocytes Not Reportable 02/21/21 23:50 Malaria parasites Not Reportable 02/21/21 23:50 [place] Bodies Not Reportable 02/21/21 23:50 Hem Pathologist Commnt No 02/21/21 23:50 PT 14.9 Sec. (12.2-14.9) 02/21/21 23:50 INR 1.05 (0.87-1.13) 02/21/21 23:50 Sodium 139 mmol/L (137-145) 02/21/21 23:50 Potassium 4.2 mmol/L (3.6-5.0) 02/21/21 23:50 Chloride 103.5 mmol/L (98-107) 02/21/21 23:50 Carbon Dioxide 20 mmol/L (22-30) L 02/21/21 23:50 Anion Gap 20 mmol/L 02/21/21 23:50 BUN 9 mg/dL (7-17) 02/21/21 23:50 Creatinine 0.6 mg/dL (0.6-1.2) 02/21/21 23:50 Estimated GFR > 60 ml/min 02/21/21 23:50 BUN/Creatinine Ratio 15 % 02/21/21 23:50 Glucose 198 mg/dL (65-100) H 02/21/21 23:50 Lactic Acid 2.10 mmol/L (0.7-2.0) H* 02/22/21 01:14 Calcium 8.2 mg/dL (8.4-10.2) L 02/21/21 23:50 Magnesium 1.80 mg/dL (1.7-2.3) 02/21/21 23:50 Total Bilirubin 0.40 mg/dL (0.1-1.2) 02/21/21 23:50 AST 15 units/L (5-40) 02/21/21 23:50 ALT 10 units/L (7-56) 02/21/21 23:50 Alkaline Phosphatase 62 units/L (35-129) 02/21/21 23:50 Total Creatine Kinase 17 units/L (30-135) L 02/21/21 23:50 CK-MB (CK-2) 2.9 ng/mL (0.0-4.0) 02/21/21 23:50 CK-MB (CK-2) Rel Index 17.0 (0-4) H 02/21/21 23:50 Troponin T 0.104 ng/mL (0.00-0.029) H* 02/21/21 23:50 Total Protein 5.3 g/dL (6.3-8.2) L 02/21/21 23:50 Albumin 2.7 g/dL (3.9-5) L 02/21/21 23:50 Albumin/Globulin Ratio 1.0 % 02/21/21 23:50 Triglycerides 93 mg/dL (2-149) 02/21/21 23:50 Cholesterol 161 mg/dL (50-199) 02/21/21 23:50 LDL Cholesterol Direct 100 mg/dL (50-130) 02/21/21 23:50 HDL Cholesterol 46 mg/dL (40-59) 02/21/21 23:50 Cholesterol/HDL Ratio 3.50 % 02/21/21 23:50 Lipase 24 units/L (13-60) 02/21/21 23:50 Microbiology: Microbiology 02/22/21 01:09 Peripheral/Venous Blood Culture - Preliminary Culture in Progress 02/22/21 01:14 Peripheral/Venous Blood Culture - Preliminary Culture in Progress Active Medications - Current Medications Current Medications: Generic Name Dose Route Start Last Admin Trade Name Freq PRN Reason Stop Dose Admin Acetaminophen 650 mg 02/22/21 02:24 Acetaminophen 325 Mg Tab PO Q4H PRN Pain MILD(1-3)/Fever >100.5/SALAZAR Albuterol 2.5 mg 02/22/21 02:24 Albuterol 2.5 Mg/3 Ml Nebu IH Q4HRT PRN Shortness Of Breath Albuterol/Ipratropium 1 ampul 02/22/21 08:00 Ipratropium/Albuterol Sulfate 3 Ml Ampul.Neb IH Q6HRT [facility] Dexamethasone 6 mg 02/22/21 10:00 Dexamethasone 4 Mg/Ml Vial IV 03/02/21 10:01 DAILY [facility] Famotidine 20 mg 02/22/21 10:00 Famotidine 20 Mg Tab PO BID [facility] Heparin Sodium (Porcine) 5,000 unit 02/22/21 06:00 02/22/21 07:11 Heparin 5,000 Unit/1 Ml Vial SUB-Q Not Given Q8HR [facility] Hydromorphone HCl 0.5 mg 02/22/21 02:24 Hydromorphone 1 Mg/1 Ml Inj IV Q3H PRN Pain , Severe (7-10) Ceftriaxone Sodium 2 gm in 100 mls @ 200 mls/hr 02/22/21 14:00 Rocephin/Ns 2 Gm/100 Ml IV Q24H [facility] Protocol Azithromycin 500 mg in 250 mls @ 250 mls/hr 02/22/21 03:00 02/22/21 05:51 Zithromax/Ns IV 250 mls/hr Q24H [facility] Administration Protocol Ibuprofen 800 mg 02/22/21 08:00 Ibuprofen 800 Mg Tab PO TID GIA Morphine Sulfate 2 mg 02/22/21 02:24 Morphine 2 Mg/1 Ml Inj IV Q4H PRN Pain, Moderate (4-6) Ondansetron HCl 4 mg 02/22/21 02:24 Ondansetron 4 Mg/2 Ml Inj IV Q8H PRN Nausea And Vomiting Sodium Chloride 10 ml 02/22/21 10:00 Sodium Chloride 0.9% 10 Ml Flush Syringe IV BID GIA Sodium Chloride 10 ml 02/22/21 02:24 Sodium Chloride 0.9% 10 Ml Flush Syringe IV PRN PRN LINE FLUSH
[2021-02-22] MEDS ORDERED: HEPARIN 10,000 UNITS/10 ML VIAL IV PRN (08:29)
[2021-02-22] MEDS ORDERED: HEPARIN/ 0.45% NACL DRIP 25,000 UNIT/500 ML BAG IV SCH (09:00)
[2021-02-22] MEDS: IPRATROPIUM/ALBUTEROL SULFATE 3 ML AMPUL.NEB IH SCH ×3 (10:49→23:45)
--- NOTE | 2021-02-22 11:00 | Electrocardiograph Report ---
[facility] Test Date: 2021-02-21 Test Time: 23:20:13 Pat Name: ANGUS ABBASI Department: Room: [place] [address] Gender: F [employer]: VIK : 1955 Requested By: MARIA R WAN Order Number: [id number] Reading MD: Toni Reyes Measurements Intervals [place] Rate: 139 P: 62 AR: 119 QRS: -25 QRSD: 74 T: 39 QT: 283 QTc: 431 Interpretive Statements Sinus tachycardia Multiple ventricular premature complexes Probable left atrial enlargement No previous ECG available for comparison Electronically Signed On 02-22-2021 11:00:04 EST by Toni Reyes
[2021-02-22] MEDS: dexAMETHasone 4 MG/ML VIAL IV SCH (11:06)
[2021-02-22] MEDS: FAMOTIDINE 20 MG TAB PO SCH ×2 (11:06→23:45)
--- NOTE | 2021-02-22 16:42 | Consultation ---
History of Present Illness Consult date: 02/22/21 Requesting physician: REFUGIO GIORDANO Consult reason: elevated troponin History of present illness: Pt is a 65-year-old female with a hx of bilateral PE (dx 01/17/2021) who was unable to tolerate anticoagulation in the setting of hemorrhagic shock secondary to rectal bleeding (for which she was hospitalized at [facility] starting 01/17/2021). No evidence of DVT on BLE Dopplers performed 01/18/2021; however, suspect hx of DVT. Pt eventually had an IVC filter placed on 01/21/2021. She presents now with complaints of dizziness and SOB x 2 days. Dizziness is worse when changing positions. Pt has been intermittently hypotensive. SpO2 was noted to be in the 70s upon arrival as well, which improved with Ventimask. Notably, pt has been vaccinated against COVID-19 x 3. Echo performed 01/18/2021 revealed LVEF 55-60%, mild diastolic dysfxn, normal RVSF, normal LA/RA size, no AR, mild MR, trace TR, normal RVSP, no pericardial effusion. No previous ischemic workup on file. Pt is previously unknown to our practice. Past History Past Medical History: pulmonary embolism, other (rectal bleeding) Past Surgical History: denies: CABG, PTCA Social history: smoking (former). denies: alcohol abuse Family history: no significant family history Medications and Allergies Allergies Allergy/AdvReac Type Severity Reaction Status Date / Time lisinopril AdvReac Anaphylaxis Verified 02/22/21 00:02 Home Medications Medication Instructions Recorded Confirmed Last Taken Type DOXYCYCLINE Hyclate [Vibramycin 100 mg PO Q12H #14 capsule 08/09/13 Unknown Rx CAP] Cyclobenzaprine [Flexeril 10 MG 10 mg PO QHS #20 tablet 01/20/18 Unknown Rx TAB] Ibuprofen [Motrin 800 MG tab] 800 mg PO TID #30 tablet 01/20/18 Unknown Rx Ciprofloxacin HCl 500 mg PO BID #14 tablet 11/23/20 Unknown Rx metroNIDAZOLE [Flagyl] 500 mg PO Q8HR #21 tablet 11/23/20 Unknown Rx Active Meds: Active Medications Acetaminophen (Acetaminophen 325 Mg Tab) 650 mg PO Q4H PRN PRN Reason: Pain MILD(1-3)/Fever >100.5/SALAZAR Albuterol (Albuterol 2.5 Mg/3 Ml Nebu) 2.5 mg IH Q4HRT PRN PRN Reason: Shortness Of Breath Albuterol/Ipratropium (Ipratropium/Albuterol Sulfate 3 Ml Ampul.Neb) 1 ampul IH Q6HRT [facility] Last Admin: 02/22/21 10:49 Dose: Not Given Documented by: Atorvastatin Calcium (Atorvastatin 40 Mg Tab) 40 mg PO QHS [facility] Dexamethasone (Dexamethasone 4 Mg/Ml Vial) 6 mg IV DAILY [facility] Stop: 03/02/21 10:01 Last Admin: 02/22/21 11:06 Dose: 6 mg Documented by: Famotidine (Famotidine 20 Mg Tab) 20 mg PO BID [facility] Last Admin: 02/22/21 11:06 Dose: 20 mg Documented by: Hydromorphone HCl (Hydromorphone 1 Mg/1 Ml Inj) 0.5 mg IV Q3H PRN PRN Reason: Pain , Severe (7-10) Ceftriaxone Sodium (Rocephin/Ns 2 Gm/100 Ml) 2 gm in 100 mls @ 200 mls/hr IV Q24H [facility]; Protocol Azithromycin (Zithromax/Ns) 500 mg in 250 mls @ 250 mls/hr IV Q24H [facility]; Protocol Last Admin: 02/22/21 05:51 Dose: 250 mls/hr Documented by: Ibuprofen (Ibuprofen 800 Mg Tab) 800 mg PO TID [facility] Last Admin: 02/22/21 08:10 Dose: Not Given Documented by: Morphine Sulfate (Morphine 2 Mg/1 Ml Inj) 2 mg IV Q4H PRN PRN Reason: Pain, Moderate (4-6) Ondansetron HCl (Ondansetron 4 Mg/2 Ml Inj) 4 mg IV Q8H PRN PRN Reason: Nausea And Vomiting Sodium Chloride (Sodium Chloride 0.9% 10 Ml Flush Syringe) 10 ml IV BID [facility] Last Admin: 02/22/21 11:06 Dose: 10 ml Documented by: Sodium Chloride (Sodium Chloride 0.9% 10 Ml Flush Syringe) 10 ml IV PRN PRN PRN Reason: LINE FLUSH Review of Systems Constitutional: no fever, no chills Ears, nose, mouth and throat: no nasal congestion, no sore throat Cardiovascular: lightheadedness, shortness of breath, dyspnea on exertion, no chest pain, no palpitations, no edema, no syncope Respiratory: shortness of breath, dyspnea on exertion, no cough Gastrointestinal: no nausea, no vomiting Genitourinary Female: no dysuria Musculoskeletal: no myalgias Integumentary: no rash, no wounds Neurological: no numbness, no tingling, no seizures, no syncope Endocrine: no polydipsia, no polyuria Hematologic/Lymphatic: no easy bruising, no easy bleeding Allergic/Immunologic: no anaphylaxis Physical Examination Last Vital Signs Temp 98.0 F 02/22/21 09:33 Pulse 104 H 02/22/21 11:11 Resp 16 02/22/21 11:11 BP 119/77 02/22/21 11:11 Pulse Ox 96 02/22/21 11:11 General appearance: no acute distress HEENT: Positive: EOMI, Normocephaly Neck: Positive: neck supple, trachea midline Cardiac: Positive: Regular Rhythm, S1/S2, Tachycardia Lungs: Positive: Decreased Breath Sounds Neuro: Positive: Grossly Intact Abdomen: Positive: Soft. Negative: Tender Skin: Negative: Rash Musculoskeletal: Normal Range of Motion Extremities: Present: lower extr. pulses. Absent: edema Results 02/22/21 16:16 02/21/21 23:50 Cardiac Enzymes 02/21/21 Range/Units 23:50 AST 15 (5-40) units/L CK-MB (CK-2) 2.9 (0.0-4.0) ng/mL Coagulation 02/21/21 Range/Units 23:50 PT 14.9 (12.2-14.9) Sec. INR 1.05 (0.87-1.13) Lipids 02/21/21 Range/Units 23:50 Triglycerides 93 (2-149) mg/dL Cholesterol 161 (50-199) mg/dL HDL Cholesterol 46 (40-59) mg/dL Cholesterol/HDL Ratio 3.50 % CBC 02/21/21 Range/Units 23:50 WBC 10.8 (4.5-11.0) K/mm3 RBC 2.91 L (3.65-5.03) M/mm3 Hgb 9.1 L (10.1-14.3) gm/dl Hct 29.7 L (30.3-42.9) % Plt Count 232 (140-440) K/mm3 Comprehensive Metabolic Panel 02/21/21 Range/Units 23:50 Sodium 139 (137-145) mmol/L Potassium 4.2 (3.6-5.0) mmol/L Chloride 103.5 (98-107) mmol/L Carbon Dioxide 20 L (22-30) mmol/L BUN 9 (7-17) mg/dL Creatinine 0.6 (0.6-1.2) mg/dL Glucose 198 H (65-100) mg/dL Calcium 8.2 L (8.4-10.2) mg/dL AST 15 (5-40) units/L ALT 10 (7-56) units/L Alkaline Phosphatase 62 (35-129) units/L Total Protein 5.3 L (6.3-8.2) g/dL Albumin 2.7 L (3.9-5) g/dL - Imaging and Cardiology Echo: pending, report reviewed EKG: report reviewed, image reviewed - EKG Interpretation EKG: no acute changes EKG interpretations - EKG Sinus rhythms and dysrhythmias: sinus tachycardia Ventricular dysrhythmias: ventricular premature com Assessment and Plan Acute Respiratory Failure COVID-19 PUI Bilateral PE (dx 01/17/2021) S/p IVC Filter (01/18/2021) Hypotension Anemia Dizziness Elevated Troponin H/o Tobacco Abuse H/o Rectal Bleeding (s/p recent hemorrhagic shock 01/17/2021) H/o Pancolitis Plan: Echo pending. Suspect troponin elevation is indicative of Type 2 LA in the setting of acute hypoxia. Suspect also some degree of myocardial injury secondary to PE. Pt denies chest pain. ECG reveals sinus tachycardia with PVCs, no acute ischemic changes. Continue to trend cardiac enzymes. Unable to initiate beta renato due to soft BPs. Orthostatic VS pending. Pt seen in conjunction with Dr. Reyes, who agrees with the assessment and plan of care. - Patient Problems (1) Acute respiratory failure Current Visit: Yes Status: Acute (2) Bilateral pulmonary embolism Current Visit: Yes Status: Chronic (3) Presence of IVC filter Current Visit: Yes Status: Chronic (4) Hypotension Current Visit: Yes Status: Acute (5) Type 2 myocardial infarction Current Visit: Yes Status: Acute (6) History of rectal bleeding Current Visit: Yes Status: Chronic
[2021-02-22 16:49] LABS: Hematocrit 30.8 % (30.3-42.9)
[2021-02-22 17:00] LABS: INR 1.02 (0.87-1.13); Partial Thromboplastin Time 29.2 Sec. (24.2-36.6)
[2021-02-22] MEDS: cefTRIAXone/NS 2 GM/100 ML 2 GM/100 ML BAG IV SCH (18:15)
[2021-02-23] MEDS: AZITHROMYCIN/NS 500 MG/250 ML 500 MG/250 ML BAG IV SCH (05:22)
--- NOTE | 2021-02-23 07:56 | Progress Note ---
Assessment and Plan Assessment and plan: History of present illness: 65 years old female with past medical history of hypokalemia, PE and former tobacco abuse was brought to the hospital because of progressive shortness of breath for last 1 to 2 days. Shortness of breath is gradual improved with oxygen . Patient has recent episode of upper respiratory tract infection In the emergency room patient initial O2 sat was 72% which is improved with 50% Ventimask to 92%. We are going to admit the patient with a diagnosis of suspected PUI/Covid Hospital course: 02/22/2021: Patient primary complaint is shortnes of breath and dizziness. orthostatic vitals, echo, mri, neuro consult ordered. Has a history of pulmonary embolism but cannot anticoagulate d/t prior hx of hemorrahagic shock from rectal bleed. Elevated troponin/CKMB noted. Suspect PE related but will follow cardiology recommendations. Doubt cardiac etiology. 02/23/2021: Orthostatic vitals not obtained. D/w RN this AM to obtain. COVID positive. ID consultation placed, recs noted. MRI negative for acute findings. Will place PT order due to patient weakness. Assessment and plan: #Acute hypoxic respiratory failure - Admit the patient to the medical floor. - Oxygen 50% Ventimask currently, SPO2: 96% on my encounter -DuoNeb by nebulizer every 4 hours. -Albuterol via nebulizer every 4 hours as needed. -Rocephin 2 g IV daily. Zithromax 500 mg IV daily. Dexamethasone 6 mg IV daily. -We do the blood culture and sputum culture. -We will send the Covid PCR. Follow Covid inflammatory marker. - Will consult infectious disease for evaluation. #Dizziness/vertigo -Onset was approximately 1 month ago. has persisted and patient now unable to walk -Unclear etiology, suspect orthostatic hypotension given low blood pressure readings with improvement in positional changes -orthostatic vitals ordered -ECHO ordered -MRI ordered -neurology consult placed. #History of pulmonary embolism/DVT -Diagnosed with DVT in the past was started on anticoagulation however developed rectal bleeding -will request records -Status post IVC filter -Could explain elevated troponin #Elevated troponin -Unclear if this is an NSTEMI, patient does not complain of any chest pain however she is short of breath. -Suspect this is supply demand versus underlying pulmonary embolism diagnosed at [place] -Troponin 0.104-> 0.06-> 0.06 -Echocardiogram ordered -ECG ordered -Atorvastatin ordered, will hold off on heparin drip due to history of rectal bleeding. Will hold off on beta-renato due to patient dizziness and suspicion for orthostatic hypotension Cardiology consulted #Person under investigation for COVID-19 - low suspicion, patient is vaccinated x 3, afebrile, no reports of muscle aches, cough, congestion. - COVID PCR ordered on admission #History of rectal bleeding - avoid anticoagulation #History of IVC filter - history of recurrent dvt. - obtained filter last month at [facility]. History Interval history: uanble to move out of bed. orthostatic vitals not obtained. Hospitalist Physical - Physical exam Narrative exam: Physical Exam: VITAL SIGNS: Reviewed. GENERAL: The patient appears normally developed, Vital signs as documented. ventimask in place, appears comfortable. HEAD: No signs of head trauma. EYES: Pupils are equal. Extraocular motions intact. EARS: Hearing grossly intact. MOUTH: Oropharynx is normal. NECK: No adenopathy, no JVD. CHEST: Chest with clear breath sounds bilaterally. CARDIAC: Regular rate and rhythm. S1 and S2, without murmurs, gallops, or rubs. VASCULAR: No Edema. Peripheral pulses normal and equal in all extremities. ABDOMEN: Soft, non tender and non distended. No rebound or guarding, and no masses palpated. Bowel Sounds normal. MUSCULOSKELETAL: Good range of motion of all major joints. Extremities without clubbing, cyanosis or edema. NEUROLOGIC EXAM: Alert and oriented x 4. no focal sensory or strength deficits. PSYCHIATRIC: Mood normal. SKIN: detail exam as documented in skin assessment - Constitutional Vitals: Temp Pulse Resp BP Pulse Ox 97.9 F 96 H 18 145/95 100 02/23/21 03:15 02/23/21 03:15 02/23/21 03:15 02/23/21 03:15 02/23/21 03:15 General appearance: Present: no acute distress HEART Score - HEART Score Troponin: Troponin T 0.060 ng/mL (0.00-0.029) H 02/23/21 00:58 Results - Labs CBC & Chem 7: 02/23/21 08:01 02/23/21 08:01 Labs: Laboratory Last Values WBC 10.8 K/mm3 (4.5-11.0) 02/21/21 23:50 RBC 2.91 M/mm3 (3.65-5.03) L 02/21/21 23:50 Hgb 9.0 gm/dl (10.1-14.3) L 02/22/21 16:16 Hct 30.8 % (30.3-42.9) 02/22/21 16:16 MCV 102 fl (79-97) H 02/21/21 23:50 MCH 31 pg (28-32) 02/21/21 23:50 MCHC 31 % (30-34) 02/21/21 23:50 RDW 20.5 % (13.2-15.2) H 02/21/21 23:50 Plt Count 250 K/mm3 (140-440) 02/22/21 16:16 Add Manual Diff Complete 02/21/21 23:50 Total Counted 100 02/21/21 23:50 Seg Neuts % (Manual) 81.0 % (40.0-70.0) H 02/21/21 23:50 Band Neutrophils % 15.0 % 02/21/21 23:50 Lymphocytes % (Manual) 4.0 % (13.4-35.0) L 02/21/21 23:50 Nucleated RBC % 1.0 % (0.0-0.9) H 02/21/21 23:50 Seg Neutrophils # Man 8.7 K/mm3 (1.8-7.7) H 02/21/21 23:50 Band Neutrophils # 1.6 K/mm3 02/21/21 23:50 Lymphocytes # (Manual) 0.4 K/mm3 (1.2-5.4) L 02/21/21 23:50 Abs React Lymphs (Man) 0.0 K/mm3 02/21/21 23:50 Monocytes # (Manual) 0.0 K/mm3 (0.0-0.8) 02/21/21 23:50 Eosinophils # (Manual) 0.0 K/mm3 (0.0-0.4) 02/21/21 23:50 Basophils # (Manual) 0.0 K/mm3 (0.0-0.1) 02/21/21 23:50 Metamyelocytes # 0.0 K/mm3 02/21/21 23:50 Myelocytes # 0.0 K/mm3 02/21/21 23:50 Promyelocytes # 0.0 K/mm3 02/21/21 23:50 Blast Cells # 0.0 K/mm3 02/21/21 23:50 WBC Morphology Not Reportable 02/21/21 23:50 Hypersegmented Neuts Not Reportable 02/21/21 23:50 Hyposegmented Neuts Not Reportable 02/21/21 23:50 Hypogranular Neuts Not Reportable 02/21/21 23:50 Smudge Cells Not Reportable 02/21/21 23:50 Toxic Granulation Not Reportable 02/21/21 23:50 Toxic Vacuolation Not Reportable 02/21/21 23:50 Dohle Bodies Not Reportable 02/21/21 23:50 Pelger-Huet Anomaly Not Reportable 02/21/21 23:50 Lisandro Rods Not Reportable 02/21/21 23:50 Platelet Estimate Consistent w auto 02/21/21 23:50 Clumped Platelets Not Reportable 02/21/21 23:50 Plt Clumps, EDTA Not Reportable 02/21/21 23:50 Large Platelets Not Reportable 02/21/21 23:50 Giant Platelets Not Reportable 02/21/21 23:50 Platelet Satelliting Not Reportable 02/21/21 23:50 Plt Morphology Comment Not Reportable 02/21/21 23:50 RBC Morphology Not Reportable 02/21/21 23:50 Dimorphic RBCs Not Reportable 02/21/21 23:50 Polychromasia Few 02/21/21 23:50 Hypochromasia Not Reportable 02/21/21 23:50 Poikilocytosis Not Reportable 02/21/21 23:50 Anisocytosis 1+ 02/21/21 23:50 Microcytosis Not Reportable 02/21/21 23:50 Macrocytosis Not Reportable 02/21/21 23:50 Spherocytes Not Reportable 02/21/21 23:50 Pappenheimer Bodies Not Reportable 02/21/21 23:50 Sickle Cells Not Reportable 02/21/21 23:50 Target Cells Not Reportable 02/21/21 23:50 Tear Drop Cells Not Reportable 02/21/21 23:50 Ovalocytes Not Reportable 02/21/21 23:50 Helmet Cells Not Reportable 02/21/21 23:50 [place] Bodies Not Reportable 02/21/21 23:50 [place] Rings Not Reportable 02/21/21 23:50 [place] Cells Not Reportable 02/21/21 23:50 Bite Cells Not Reportable 02/21/21 23:50 Crenated Cell Not Reportable 02/21/21 23:50 Elliptocytes Not Reportable 02/21/21 23:50 Acanthocytes (Spur) Not Reportable 02/21/21 23:50 Rouleaux Not Reportable 02/21/21 23:50 Hemoglobin C Crystals Not Reportable 02/21/21 23:50 Schistocytes Not Reportable 02/21/21 23:50 Malaria parasites Not Reportable 02/21/21 23:50 [place] Bodies Not Reportable 02/21/21 23:50 Hem Pathologist Commnt No 02/21/21 23:50 PT 14.5 Sec. (12.2-14.9) 02/22/21 16:16 INR 1.02 (0.87-1.13) 02/22/21 16:16 APTT 29.2 Sec. (24.2-36.6) 02/22/21 16:16 Sodium 139 mmol/L (137-145) 02/21/21 23:50 Potassium 4.2 mmol/L (3.6-5.0) 02/21/21 23:50 Chloride 103.5 mmol/L (98-107) 02/21/21 23:50 Carbon Dioxide 20 mmol/L (22-30) L 02/21/21 23:50 Anion Gap 20 mmol/L 02/21/21 23:50 BUN 9 mg/dL (7-17) 02/21/21 23:50 Creatinine 0.6 mg/dL (0.6-1.2) 02/21/21 23:50 Estimated GFR > 60 ml/min 02/21/21 23:50 BUN/Creatinine Ratio 15 % 02/21/21 23:50 Glucose 198 mg/dL (65-100) H 02/21/21 23:50 Lactic Acid 1.50 mmol/L (0.7-2.0) 02/22/21 16:16 Calcium 8.2 mg/dL (8.4-10.2) L 02/21/21 23:50 Magnesium 1.80 mg/dL (1.7-2.3) 02/21/21 23:50 Total Bilirubin 0.40 mg/dL (0.1-1.2) 02/21/21 23:50 AST 15 units/L (5-40) 02/21/21 23:50 ALT 10 units/L (7-56) 02/21/21 23:50 Alkaline Phosphatase 62 units/L (35-129) 02/21/21 23:50 Total Creatine Kinase 17 units/L (30-135) L 02/21/21 23:50 CK-MB (CK-2) 2.9 ng/mL (0.0-4.0) 02/21/21 23:50 CK-MB (CK-2) Rel Index 17.0 (0-4) H 02/21/21 23:50 Troponin T 0.060 ng/mL (0.00-0.029) H 02/23/21 00:58 Total Protein 5.3 g/dL (6.3-8.2) L 02/21/21 23:50 Albumin 2.7 g/dL (3.9-5) L 02/21/21 23:50 Albumin/Globulin Ratio 1.0 % 02/21/21 23:50 Triglycerides 93 mg/dL (2-149) 02/21/21 23:50 Cholesterol 161 mg/dL (50-199) 02/21/21 23:50 LDL Cholesterol Direct 100 mg/dL (50-130) 02/21/21 23:50 HDL Cholesterol 46 mg/dL (40-59) 02/21/21 23:50 Cholesterol/HDL Ratio 3.50 % 02/21/21 23:50 Lipase 24 units/L (13-60) 02/21/21 23:50 Microbiology: Microbiology 02/22/21 01:09 Peripheral/Venous Blood Culture - Preliminary NO GROWTH AFTER 24 HOURS 02/22/21 01:14 Peripheral/Venous Blood Culture - Preliminary NO GROWTH AFTER 24 HOURS Active Medications - Current Medications Current Medications: Generic Name Dose Route Start Last Admin Trade Name Freq PRN Reason Stop Dose Admin Acetaminophen 650 mg 02/22/21 02:24 Acetaminophen 325 Mg Tab PO Q4H PRN Pain MILD(1-3)/Fever >100.5/SALAZAR Albuterol 2.5 mg 02/22/21 02:24 Albuterol 2.5 Mg/3 Ml Nebu IH Q4HRT PRN Shortness Of Breath Albuterol/Ipratropium 1 ampul 02/22/21 08:00 02/22/21 23:45 Ipratropium/Albuterol Sulfate 3 Ml Ampul.Neb IH Not Given Q6HRT [facility] Atorvastatin Calcium 40 mg 02/22/21 22:00 02/22/21 23:45 Atorvastatin 40 Mg Tab PO 40 mg QHS GIA Administration Dexamethasone 6 mg 02/22/21 10:00 02/22/21 11:06 Dexamethasone 4 Mg/Ml Vial IV 03/02/21 10:01 6 mg DAILY GIA Administration Famotidine 20 mg 02/22/21 10:00 02/22/21 23:45 Famotidine 20 Mg Tab PO 20 mg BID GIA Administration Hydromorphone HCl 0.5 mg 02/22/21 02:24 Hydromorphone 1 Mg/1 Ml Inj IV Q3H PRN Pain , Severe (7-10) Ceftriaxone Sodium 2 gm in 100 mls @ 200 mls/hr 02/22/21 14:00 02/22/21 18:15 Rocephin/Ns 2 Gm/100 Ml IV 02/26/21 14:29 200 mls/hr Q24H GIA Administration Protocol Azithromycin 500 mg in 250 mls @ 250 mls/hr 02/22/21 03:00 02/23/21 05:22 Zithromax/Ns IV 02/26/21 03:59 250 mls/hr Q24H [facility]IA Administration Protocol Ibuprofen 800 mg 02/22/21 08:00 02/22/21 21:24 Ibuprofen 800 Mg Tab PO Not Given TID [facility] Morphine Sulfate 2 mg 02/22/21 02:24 Morphine 2 Mg/1 Ml Inj IV Q4H PRN Pain, Moderate (4-6) Ondansetron HCl 4 mg 02/22/21 02:24 Ondansetron 4 Mg/2 Ml Inj IV Q8H PRN Nausea And Vomiting Sodium Chloride 10 ml 02/22/21 10:00 02/22/21 23:45 Sodium Chloride 0.9% 10 Ml Flush Syringe IV 10 ml BID GIA Administration Sodium Chloride 10 ml 02/22/21 02:24 Sodium Chloride 0.9% 10 Ml Flush Syringe IV PRN PRN LINE FLUSH
[2021-02-23] MEDS: IBUPROFEN 800 MG TAB PO SCH ×3 (08:06→22:53)
[2021-02-23 08:59] LABS: Basophils % (Auto) 0.1 % (0.0-1.8); Hematocrit 31.3 % (30.3-42.9); Hemoglobin 9.6 gm/dl (10.1-14.3); Lymphocytes # (Auto) 1.2 K/mm3 (1.2-5.4); Lymphocytes % (Auto) 10.7 % (13.4-35.0); Mean Corpuscular HGB Conc 31 % (30-34); Mean Corpuscular Volume 101 fl (79-97); Monocytes # (Auto) 0.6 K/mm3 (0.0-0.8); Platelet Count 243 K/mm3 (140-440); Red Blood Count 3.09 M/mm3 (3.65-5.03)
[2021-02-23 09:00] LABS: Red Cell Distribution Width 20.2 % (13.2-15.2)
[2021-02-23] MEDS: ACETAMINOPHEN 325 MG TAB PO PRN ×2 (09:04→14:35)
[2021-02-23 09:24] LABS: Blood Urea Nitrogen 10 mg/dL (7-17); Calcium 8.7 mg/dL (8.4-10.2); Hemolysis Index 36
[2021-02-23 09:32] LABS: BUN/Creatinine Ratio 33
[2021-02-23] MEDS: FAMOTIDINE 20 MG TAB PO SCH ×2 (09:51→22:53)
[2021-02-23] MEDS: dexAMETHasone 4 MG/ML VIAL IV SCH (09:51)
--- NOTE | 2021-02-23 11:05 | Progress Note ---
Assessment and Plan Elevated Troponins * Patient currently chest pain-free. Twelve-lead shows no acute ischemic changes. Troponins are mildly elevated, nonspecific, subacute and trending downwards. We will continue to trend troponins. * Echocardiogram 02/23/2021: LVEF 55 to 60%. LV SF normal. Flattened septum consistent with right ventricular volume and pressure overload. Mild diastolic dysfunction. RV mildly dilated. Mild TR. RVSP 33 mmHg. Acute respiratory failure in setting of bilateral PTE and suspected Covid infection * Patient has significant history of prior DVT and PTE. She is a poor anticoagulation candidate having previously developed hemorrhagic shock from rectal bleed. IVC filter is in place * Patient is Covid PUI. Covid PCR results are pending Pt seen in conjunction with Dr. Domingo, who agrees with the assessment and plan of care. - Patient Problems (1) Acute respiratory failure Current Visit: Yes Status: Acute (2) Bilateral pulmonary embolism Current Visit: Yes Status: Chronic (3) Presence of IVC filter Current Visit: Yes Status: Chronic (4) Hypotension Current Visit: Yes Status: Acute (5) Type 2 myocardial infarction Current Visit: Yes Status: Acute (6) History of rectal bleeding Current Visit: Yes Status: Chronic Subjective Date of service: 02/23/21 Principal diagnosis: Acute Respiratory Failure Interval history: Patient resting comfortably in bed. Mild shortness of breath with no chest pain overnight Telemetry shows sinus rhythm 98. Objective Last Vital Signs Temp 97.9 F 02/23/21 08:05 Pulse 98 H 02/23/21 08:05 Resp 20 02/23/21 08:05 BP 129/71 02/23/21 08:05 Pulse Ox 98 02/23/21 08:05 - Physical Examination General: Appears Well HEENT: Positive: EOMI, Normocephaly Neck: Positive: neck supple, trachea midline Cardiac: Positive: Reg Rate and Rhythm Lungs: Positive: clear to auscultation, Normal Breath Sounds Neuro: Positive: Grossly Intact Abdomen: Positive: Soft. Negative: Tender Skin: Negative: Rash Musculoskeletal: No Fluid Collection, No Pain, Normal Range of Motion Extremities: Present: lower extr. pulses. Absent: edema - Labs and Meds Coagulation 02/22/21 Range/Units 16:16 PT 14.5 (12.2-14.9) Sec. INR 1.02 (0.87-1.13) APTT 29.2 (24.2-36.6) Sec. CBC 02/22/21 02/23/21 Range/Units 16:16 08:01 WBC 11.1 H (4.5-11.0) K/mm3 RBC 3.09 L (3.65-5.03) M/mm3 Hgb 9.0 L 9.6 L (10.1-14.3) gm/dl Hct 30.8 31.3 (30.3-42.9) % Plt Count 250 243 (140-440) K/mm3 Lymph # (Auto) 1.2 (1.2-5.4) K/mm3 [place] # (Auto) 0.6 (0.0-0.8) K/mm3 Eos # (Auto) 0.0 (0.0-0.4) K/mm3 Baso # (Auto) 0.0 (0.0-0.1) K/mm3 Comprehensive Metabolic Panel 02/23/21 Range/Units 08:01 Sodium 142 (137-145) mmol/L Potassium 4.6 (3.6-5.0) mmol/L Chloride 106.2 (98-107) mmol/L Carbon Dioxide 23 (22-30) mmol/L BUN 10 (7-17) mg/dL Creatinine 0.3 L (0.6-1.2) mg/dL Glucose 118 H (65-100) mg/dL Calcium 8.7 (8.4-10.2) mg/dL - Imaging and Cardiology EKG: report reviewed, image reviewed Echo: report reviewed (Echocardiogram 02/23/2021: LVEF 55 to 60%. LV SF normal. Flattened septum consistent with right ventricular volume and pressure overload. Mild diastolic dysfunction. RV mildly dilated. Mild TR. RVSP 33 mmHg.) - Telemetry EKG Rhythm: Sinus Rhythm - EKG Sinus rhythms and dysrhythmias: sinus tachycardia Ventricular dysrhythmias: ventricular premature com
--- NOTE | 2021-02-23 13:29 | Magnetic Resonance Report ---
NONENHANCED MR SCAN OF THE BRAIN: INDICATION / CLINICAL INFORMATION: dizziness. TECHNIQUE: Multiplanar, multisequence MR images of the brain obtained. COMPARISON: None available. FINDINGS: BRAIN / INTRACRANIAL CONTENTS: No acute ischemia, acute hemorrhage, mass effect, midline shift, or hy drocephalus. Mild cerebellar involution; no space taking lesion; normal flow signal in the basilar a rtery Supratentorially, mild cortical involution; periventricular white matter hyperintensities around atri a of the lateral ventricles; deep hemispheric white matter are normal CRANIOCERVICAL JUNCTION: No significant abnormality. VASCULAR FLOW-VOIDS: No significant abnormality. ORBITS: No significant abnormality of visualized orbits. SINUSES / MASTOIDS: No significant abnormality of visualized sinuses and mastoid air cells. ADDITIONAL FINDINGS: None. IMPRESSION: 1. No acute focal parenchymal lesion in the brain Mild cerebellar involution Signer Name: You Manzo MD Signed: 02/23/2021 1:24 PM Workstation Name: [id number]
[2021-02-23] MEDS: cefTRIAXone/NS 2 GM/100 ML 2 GM/100 ML BAG IV SCH (14:36)
--- NOTE | 2021-02-23 14:40 | Consultation ---
History of Present Illness - Reason for Consult Consult date: 02/23/21 - History of Present Illness 65-year-old female past medical history of pulmonary embolism, previous tobacco abuse presented to hospital complaining of shortness of breath. This began 2 days prior to admission and has been worsening. She was admitted as Covid PUI. Afebrile since admission with a white count of 11.1. Covid PCR pending. Normal renal function. Pending procalcitonin. Imaging personally reviewed: Chest x-ray: No acute findings. Brain MRI: No acute abnormality. Review of systems: Deferred to reduce to the risk of transmission of COVID-19 Past History Past Medical History: pulmonary embolism, other (rectal bleeding) Past Surgical History: denies: CABG, PTCA Social history: smoking (former). denies: alcohol abuse Family history: no significant family history Medications and Allergies Allergies Allergy/AdvReac Type Severity Reaction Status Date / Time lisinopril AdvReac Anaphylaxis Verified 02/22/21 00:02 Home Medications Medication Instructions Recorded Confirmed Last Taken Type DOXYCYCLINE Hyclate [Vibramycin 100 mg PO Q12H #14 capsule 08/09/13 Unknown Rx CAP] Cyclobenzaprine [Flexeril 10 MG 10 mg PO QHS #20 tablet 01/20/18 Unknown Rx TAB] Ibuprofen [Motrin 800 MG tab] 800 mg PO TID #30 tablet 01/20/18 Unknown Rx Ciprofloxacin HCl 500 mg PO BID #14 tablet 11/23/20 Unknown Rx metroNIDAZOLE [Flagyl] 500 mg PO Q8HR #21 tablet 11/23/20 Unknown Rx Active Meds: Active Medications Acetaminophen (Acetaminophen 325 Mg Tab) 650 mg PO Q4H PRN PRN Reason: Pain MILD(1-3)/Fever >100.5/SALAZAR Last Admin: 02/23/21 14:35 Dose: 650 mg Documented by: Albuterol (Albuterol 2.5 Mg/3 Ml Nebu) 2.5 mg IH Q4HRT PRN PRN Reason: Shortness Of Breath Albuterol/Ipratropium (Ipratropium/Albuterol Sulfate 3 Ml Ampul.Neb) 1 ampul IH Q6HRT [facility] Last Admin: 02/22/21 23:45 Dose: Not Given Documented by: Atorvastatin Calcium (Atorvastatin 40 Mg Tab) 40 mg PO QHS [facility] Last Admin: 02/22/21 23:45 Dose: 40 mg Documented by: Dexamethasone (Dexamethasone 4 Mg/Ml Vial) 6 mg IV DAILY [facility] Stop: 03/02/21 10:01 Last Admin: 02/23/21 09:51 Dose: 6 mg Documented by: Famotidine (Famotidine 20 Mg Tab) 20 mg PO BID [facility] Last Admin: 02/23/21 09:51 Dose: 20 mg Documented by: Hydromorphone HCl (Hydromorphone 1 Mg/1 Ml Inj) 0.5 mg IV Q3H PRN PRN Reason: Pain , Severe (7-10) Ceftriaxone Sodium (Rocephin/Ns 2 Gm/100 Ml) 2 gm in 100 mls @ 200 mls/hr IV Q24H [facility]; Protocol Stop: 02/26/21 14:29 Last Admin: 02/23/21 14:36 Dose: 200 mls/hr Documented by: Azithromycin (Zithromax/Ns) 500 mg in 250 mls @ 250 mls/hr IV Q24H [facility]; Protocol Stop: 02/26/21 03:59 Last Admin: 02/23/21 05:22 Dose: 250 mls/hr Documented by: Ibuprofen (Ibuprofen 800 Mg Tab) 800 mg PO TID [facility] Last Admin: 02/23/21 14:36 Dose: Not Given Documented by: Morphine Sulfate (Morphine 2 Mg/1 Ml Inj) 2 mg IV Q4H PRN PRN Reason: Pain, Moderate (4-6) Ondansetron HCl (Ondansetron 4 Mg/2 Ml Inj) 4 mg IV Q8H PRN PRN Reason: Nausea And Vomiting Sodium Chloride (Sodium Chloride 0.9% 10 Ml Flush Syringe) 10 ml IV BID [facility] Last Admin: 02/23/21 12:04 Dose: 10 ml Documented by: Sodium Chloride (Sodium Chloride 0.9% 10 Ml Flush Syringe) 10 ml IV PRN PRN PRN Reason: LINE FLUSH Physical Examination - Physical Exam Narrative exam: Physical exam deferred to reduce risk of transmission of COVID-19. Please refer to primary team's note. - Constitutional Vitals: Vital Signs Temp Pulse Resp BP Pulse Ox 97.9 F 91 H 18 143/95 98 02/23/21 08:05 02/23/21 14:10 02/23/21 14:10 02/23/21 14:10 02/23/21 14:10 Temperature -Last 24 Hours Temperature 97.9 F Temperature 97.9 F Temperature 98.7 F Results - Labs CBC & Chem 7: 02/23/21 08:01 02/23/21 08:01 Labs: Abnormal lab results 02/22/21 02/22/21 02/23/21 Range/Units 16:16 16:16 00:58 WBC (4.5-11.0) K/mm3 RBC (3.65-5.03) M/mm3 Hgb 9.0 L (10.1-14.3) gm/dl MCV (79-97) fl RDW (13.2-15.2) % Lymph % (Auto) (13.4-35.0) % Seg Neutrophils % (40.0-70.0) % Seg Neutrophils # (1.8-7.7) K/mm3 Creatinine (0.6-1.2) mg/dL Glucose (65-100) mg/dL Troponin T 0.062 H D 0.060 H (0.00-0.029) ng/mL 02/23/21 02/23/21 Range/Units 08:01 08:01 WBC 11.1 H (4.5-11.0) K/mm3 RBC 3.09 L (3.65-5.03) M/mm3 Hgb 9.6 L (10.1-14.3) gm/dl MCV 101 H (79-97) fl RDW 20.2 H (13.2-15.2) % Lymph % (Auto) 10.7 L (13.4-35.0) % Seg Neutrophils % 84.2 H (40.0-70.0) % Seg Neutrophils # 9.4 H (1.8-7.7) K/mm3 Creatinine 0.3 L (0.6-1.2) mg/dL Glucose 118 H (65-100) mg/dL Troponin T (0.00-0.029) ng/mL Assessment and Plan Cultures: COVID-19 PCR pending A/P: 66-year-old man past medical history GERD, GI bleeds, hypertension presents as Covid PUI: #Covid PUI: Awaiting PCR. #Dizziness: Can be associated with Covid, await PCR. Recs: -Continue empiric ceftriaxone azithromycin for now pending Covid PCR and procalcitonin -If Covid positive and requiring supplemental oxygen, recommend Remdesivir -Anticoagulation per hospital protocol Thank you for the consult, we will continue to follow. Mukesh Renae MD [facility] ([facility]) O: [phone] F: [phone]
[2021-02-23] MEDS: IPRATROPIUM/ALBUTEROL SULFATE 3 ML AMPUL.NEB IH SCH ×2 (16:53→21:36)
[2021-02-24] MEDS: AZITHROMYCIN/NS 500 MG/250 ML 500 MG/250 ML BAG IV SCH (02:51)
[2021-02-24] MEDS: IPRATROPIUM/ALBUTEROL SULFATE 3 ML AMPUL.NEB IH SCH ×4 (04:23→20:42)
[2021-02-24 08:23] LABS: Hematocrit 30.4 % (30.3-42.9)
[2021-02-24 08:43] LABS: Blood Urea Nitrogen 9 mg/dL (7-17); Calcium 8.6 mg/dL (8.4-10.2); Hemolysis Index 5
[2021-02-24 08:45] LABS: BUN/Creatinine Ratio 30
[2021-02-24] MEDS: IBUPROFEN 800 MG TAB PO SCH ×3 (09:43→22:21)
[2021-02-24] MEDS: dexAMETHasone 4 MG/ML VIAL IV SCH (09:54)
[2021-02-24] MEDS: FAMOTIDINE 20 MG TAB PO SCH ×2 (09:54→22:27)
[2021-02-24] MEDS ORDERED: REMDESIVIR 200 MG in SODIUM CHLORIDE 0.9% 250ML 250 ML IV ONE (10:00)
[2021-02-24] MEDS ORDERED: MECLIZINE 25 MG TAB PO PRN (10:18)
--- NOTE | 2021-02-24 10:18 | Progress Note ---
Assessment and Plan Assessment and plan: 65-year-old female past medical history of pulmonary embolism, previous tobacco abuse presented to hospital complaining of shortness of breath. This began 2 days prior to admission and has been worsening. She was admitted as Covid PUI. Covid PCR found to be positive on 02/23/2021. Acute hypoxic respiratory failure Bilateral PE COVID-19 pneumonia Elevated troponin Dizziness/vertigo History of rectal bleeding History of IVC filter Hospital course: 02/22/2021: Patient primary complaint is shortnes of breath and dizziness. orthostatic vitals, echo, mri, neuro consult ordered. Has a history of pulmonary embolism but cannot anticoagulate d/t prior hx of hemorrahagic shock from rectal bleed. Elevated troponin/CKMB noted. Suspect PE related but will follow cardiology recommendations. Doubt cardiac etiology. 02/23/2021: Orthostatic vitals not obtained. D/w RN this AM to obtain. COVID positive. ID consultation placed, recs noted. MRI negative for acute findings. Will place PT order due to patient weakness. 02/24/2021. Patient still complains of shortness of breath and dizziness. Dizziness may be related to vertigo. We will start meclizine 25 mg 3 times daily. Patient has a history of pulmonary embolism/DVT but unable to anticoagulate due to prior history of hemorrhagic shock from rectal bleed. Patient currently requiring 10 L O2. We will continue to wean oxygen as tolerated. Covid PCR positive on 02/23/2021. We will start remdesivir for total of 5 doses. ID following. Follow-up procalcitonin levels to determine need for antibiotics History Interval history: No new issues Hospitalist Physical - Constitutional Vitals: Temp Pulse Resp BP Pulse Ox 97.6 F 110 H 22 109/81 94 02/23/21 17:43 02/23/21 21:35 02/23/21 21:35 02/23/21 17:43 02/23/21 23:32 General appearance: Present: no acute distress - EENT Eyes: Present: PERRL, EOM intact ENT: hearing intact, clear oral mucosa, dentition normal - Neck Neck: Present: supple, normal ROM - Respiratory Respiratory effort: normal Respiratory: bilateral: CTA - Cardiovascular Rhythm: regular Heart Sounds: Present: S1 & S2. Absent: gallop, rub - Extremities Extremities: no ischemia, No edema, Full ROM - Abdominal General gastrointestinal: soft, non-tender, non-distended, normal bowel sounds - Integumentary Integumentary: Present: clear, warm, dry - Neurologic Neurologic: CNII-XII intact, moves all extremities HEART Score - HEART Score Troponin: Troponin T 0.035 ng/mL (0.00-0.029) H D 02/24/21 07:58 Results - Labs CBC & Chem 7: 02/24/21 07:58 02/24/21 07:58 Labs: Laboratory Last Values WBC 11.1 K/mm3 (4.5-11.0) H 02/23/21 08:01 RBC 3.09 M/mm3 (3.65-5.03) L 02/23/21 08:01 Hgb 9.0 gm/dl (10.1-14.3) L 02/24/21 07:58 Hct 30.4 % (30.3-42.9) 02/24/21 07:58 MCV 101 fl (79-97) H 02/23/21 08:01 MCH 31 pg (28-32) 02/23/21 08:01 MCHC 31 % (30-34) 02/23/21 08:01 RDW 20.2 % (13.2-15.2) H 02/23/21 08:01 Plt Count 236 K/mm3 (140-440) 02/24/21 07:58 Lymph % (Auto) 10.7 % (13.4-35.0) L 02/23/21 08:01 [place] % (Auto) 5.0 % (0.0-7.3) 02/23/21 08:01 Eos % (Auto) 0.0 % (0.0-4.3) 02/23/21 08:01 Baso % (Auto) 0.1 % (0.0-1.8) 02/23/21 08:01 Lymph # (Auto) 1.2 K/mm3 (1.2-5.4) 02/23/21 08:01 [place] # (Auto) 0.6 K/mm3 (0.0-0.8) 02/23/21 08:01 Eos # (Auto) 0.0 K/mm3 (0.0-0.4) 02/23/21 08:01 Baso # (Auto) 0.0 K/mm3 (0.0-0.1) 02/23/21 08:01 Add Manual Diff Complete 02/21/21 23:50 Total Counted 100 02/21/21 23:50 Seg Neutrophils % 84.2 % (40.0-70.0) H 02/23/21 08:01 Seg Neuts % (Manual) 81.0 % (40.0-70.0) H 02/21/21 23:50 Band Neutrophils % 15.0 % 02/21/21 23:50 Lymphocytes % (Manual) 4.0 % (13.4-35.0) L 02/21/21 23:50 Nucleated RBC % 1.0 % (0.0-0.9) H 02/21/21 23:50 Seg Neutrophils # 9.4 K/mm3 (1.8-7.7) H 02/23/21 08:01 Seg Neutrophils # Man 8.7 K/mm3 (1.8-7.7) H 02/21/21 23:50 Band Neutrophils # 1.6 K/mm3 02/21/21 23:50 Lymphocytes # (Manual) 0.4 K/mm3 (1.2-5.4) L 02/21/21 23:50 Abs React Lymphs (Man) 0.0 K/mm3 02/21/21 23:50 Monocytes # (Manual) 0.0 K/mm3 (0.0-0.8) 02/21/21 23:50 Eosinophils # (Manual) 0.0 K/mm3 (0.0-0.4) 02/21/21 23:50 Basophils # (Manual) 0.0 K/mm3 (0.0-0.1) 02/21/21 23:50 Metamyelocytes # 0.0 K/mm3 02/21/21 23:50 Myelocytes # 0.0 K/mm3 02/21/21 23:50 Promyelocytes # 0.0 K/mm3 02/21/21 23:50 Blast Cells # 0.0 K/mm3 02/21/21 23:50 WBC Morphology Not Reportable 02/21/21 23:50 Hypersegmented Neuts Not Reportable 02/21/21 23:50 Hyposegmented Neuts Not Reportable 02/21/21 23:50 Hypogranular Neuts Not Reportable 02/21/21 23:50 Smudge Cells Not Reportable 02/21/21 23:50 Toxic Granulation Not Reportable 02/21/21 23:50 Toxic Vacuolation Not Reportable 02/21/21 23:50 Dohle Bodies Not Reportable 02/21/21 23:50 Pelger-Huet Anomaly Not Reportable 02/21/21 23:50 Lisandro Rods Not Reportable 02/21/21 23:50 Platelet Estimate Consistent w auto 02/21/21 23:50 Clumped Platelets Not Reportable 02/21/21 23:50 Plt Clumps, EDTA Not Reportable 02/21/21 23:50 Large Platelets Not Reportable 02/21/21 23:50 Giant Platelets Not Reportable 02/21/21 23:50 Platelet Satelliting Not Reportable 02/21/21 23:50 Plt Morphology Comment Not Reportable 02/21/21 23:50 RBC Morphology Not Reportable 02/21/21 23:50 Dimorphic RBCs Not Reportable 02/21/21 23:50 Polychromasia Few 02/21/21 23:50 Hypochromasia Not Reportable 02/21/21 23:50 Poikilocytosis Not Reportable 02/21/21 23:50 Anisocytosis 1+ 02/21/21 23:50 Microcytosis Not Reportable 02/21/21 23:50 Macrocytosis Not Reportable 02/21/21 23:50 Spherocytes Not Reportable 02/21/21 23:50 Pappenheimer Bodies Not Reportable 02/21/21 23:50 Sickle Cells Not Reportable 02/21/21 23:50 Target Cells Not Reportable 02/21/21 23:50 Tear Drop Cells Not Reportable 02/21/21 23:50 Ovalocytes Not Reportable 02/21/21 23:50 Helmet Cells Not Reportable 02/21/21 23:50 Steele-Remlap Bodies Not Reportable 02/21/21 23:50 [place] Rings Not Reportable 02/21/21 23:50 Elroy Cells Not Reportable 02/21/21 23:50 Bite Cells Not Reportable 02/21/21 23:50 Crenated Cell Not Reportable 02/21/21 23:50 Elliptocytes Not Reportable 02/21/21 23:50 Acanthocytes (Spur) Not Reportable 02/21/21 23:50 Rouleaux Not Reportable 02/21/21 23:50 Hemoglobin C Crystals Not Reportable 02/21/21 23:50 Schistocytes Not Reportable 02/21/21 23:50 Malaria parasites Not Reportable 02/21/21 23:50 [place] Bodies Not Reportable 02/21/21 23:50 Hem Pathologist Commnt No 02/21/21 23:50 PT 14.5 Sec. (12.2-14.9) 02/22/21 16:16 INR 1.02 (0.87-1.13) 02/22/21 16:16 APTT 29.2 Sec. (24.2-36.6) 02/22/21 16:16 Sodium 142 mmol/L (137-145) 02/24/21 07:58 Potassium 3.9 mmol/L (3.6-5.0) 02/24/21 07:58 Chloride 106.0 mmol/L (98-107) 02/24/21 07:58 Carbon Dioxide 23 mmol/L (22-30) 02/24/21 07:58 Anion Gap 17 mmol/L 02/24/21 07:58 BUN 9 mg/dL (7-17) 02/24/21 07:58 Creatinine 0.3 mg/dL (0.6-1.2) L 02/24/21 07:58 Estimated GFR > 60 ml/min 02/24/21 07:58 BUN/Creatinine Ratio 30 % 02/24/21 07:58 Glucose 105 mg/dL (65-100) H 02/24/21 07:58 Lactic Acid 1.50 mmol/L (0.7-2.0) 02/22/21 16:16 Calcium 8.6 mg/dL (8.4-10.2) 02/24/21 07:58 Magnesium 1.80 mg/dL (1.7-2.3) 02/21/21 23:50 Total Bilirubin 0.40 mg/dL (0.1-1.2) 02/21/21 23:50 AST 15 units/L (5-40) 02/21/21 23:50 ALT 10 units/L (7-56) 02/21/21 23:50 Alkaline Phosphatase 62 units/L (35-129) 02/21/21 23:50 Total Creatine Kinase 17 units/L (30-135) L 02/21/21 23:50 CK-MB (CK-2) 2.9 ng/mL (0.0-4.0) 02/21/21 23:50 CK-MB (CK-2) Rel Index 17.0 (0-4) H 02/21/21 23:50 Troponin T 0.035 ng/mL (0.00-0.029) H D 02/24/21 07:58 Total Protein 5.3 g/dL (6.3-8.2) L 02/21/21 23:50 Albumin 2.7 g/dL (3.9-5) L 02/21/21 23:50 Albumin/Globulin Ratio 1.0 % 02/21/21 23:50 Triglycerides 93 mg/dL (2-149) 02/21/21 23:50 Cholesterol 161 mg/dL (50-199) 02/21/21 23:50 LDL Cholesterol Direct 100 mg/dL (50-130) 02/21/21 23:50 HDL Cholesterol 46 mg/dL (40-59) 02/21/21 23:50 Cholesterol/HDL Ratio 3.50 % 02/21/21 23:50 Lipase 24 units/L (13-60) 02/21/21 23:50 Coronavirus (PCR) Positive (Negative) A 02/23/21 Unknown Microbiology: Microbiology 02/22/21 01:09 Peripheral/Venous Blood Culture - Preliminary NO GROWTH AFTER 48 HOURS 02/22/21 01:14 Peripheral/Venous Blood Culture - Preliminary NO GROWTH AFTER 48 HOURS Monk/IV: Voiding Method Incontinent Active Medications - Current Medications Current Medications: Generic Name Dose Route Start Last Admin Trade Name Freq PRN Reason Stop Dose Admin Acetaminophen 650 mg 02/22/21 02:24 02/23/21 14:35 Acetaminophen 325 Mg Tab PO 650 mg Q4H PRN Administration Pain MILD(1-3)/Fever >100.5/SALAZAR Albuterol 2.5 mg 02/22/21 02:24 Albuterol 2.5 Mg/3 Ml Nebu IH Q4HRT PRN Shortness Of Breath Albuterol/Ipratropium 1 ampul 02/22/21 08:00 02/24/21 04:23 Ipratropium/Albuterol Sulfate 3 Ml Ampul.Neb IH Not Given Q6HRT [facility] Atorvastatin Calcium 40 mg 02/22/21 22:00 02/24/21 01:53 Atorvastatin 40 Mg Tab PO Not Given QHS [facility] Dexamethasone 6 mg 02/22/21 10:00 02/24/21 09:54 Dexamethasone 4 Mg/Ml Vial IV 03/02/21 10:01 6 mg DAILY [facility] Administration Famotidine 20 mg 02/22/21 10:00 02/24/21 09:54 Famotidine 20 Mg Tab PO 20 mg BID [facility] Administration Hydromorphone HCl 0.5 mg 02/22/21 02:24 Hydromorphone 1 Mg/1 Ml Inj IV Q3H PRN Pain , Severe (7-10) Ceftriaxone Sodium 2 gm in 100 mls @ 200 mls/hr 02/22/21 14:00 02/23/21 14:36 Rocephin/Ns 2 Gm/100 Ml IV 02/26/21 14:29 200 mls/hr Q24H [facility] Administration Protocol Azithromycin 500 mg in 250 mls @ 250 mls/hr 02/22/21 03:00 02/24/21 02:51 Zithromax/Ns IV 02/26/21 03:59 250 mls/hr Q24H [facility] Administration Protocol REMDESIVIR 200 mg/ Sodium 250 mls @ 500 mls/hr 02/24/21 10:00 02/24/21 09:54 Chloride IV 02/24/21 10:29 500 mls/hr ONCE ONE Administration REMDESIVIR 100 mg/ Sodium 250 mls @ 500 mls/hr 02/25/21 21:00 Chloride IV 02/28/21 21:29 Q24HR@2100 [facility] Ibuprofen 800 mg 02/22/21 08:00 02/24/21 09:43 Ibuprofen 800 Mg Tab PO Not Given TID [facility] Morphine Sulfate 2 mg 02/22/21 02:24 Morphine 2 Mg/1 Ml Inj IV Q4H PRN Pain, Moderate (4-6) Ondansetron HCl 4 mg 02/22/21 02:24 Ondansetron 4 Mg/2 Ml Inj IV Q8H PRN Nausea And Vomiting Sodium Chloride 10 ml 02/22/21 10:00 02/24/21 09:54 Sodium Chloride 0.9% 10 Ml Flush Syringe IV 10 ml BID [facility] Administration Sodium Chloride 10 ml 02/22/21 02:24 Sodium Chloride 0.9% 10 Ml Flush Syringe IV PRN PRN LINE FLUSH Sodium Chloride 50 ml 02/24/21 10:00 Sodium Chloride 0.9% 50 Ml Ivpb IV 02/28/21 21:01 Q24HR@2100 [facility]
[2021-02-24] MEDS: ACETAMINOPHEN 325 MG TAB PO PRN ×2 (10:24→17:47)
--- NOTE | 2021-02-24 10:25 | Progress Note ---
Assessment and Plan Pt is a 65-year-old female with a hx of bilateral PE (dx 01/17/2021) who was unable to tolerate anticoagulation in the setting of hemorrhagic shock secondary to rectal bleeding (for which she was hospitalized at [facility] starting 01/17/2021). Pt eventually had an IVC filter placed on 01/21/2021. Who is admitted for complaints of dizziness and SOB x 2 days prior to admission COVID-19- ID following Acute Respiratory failure Bilateral PE NSTEMI type 2 Dizziness IVC filter Anemia H/o GI bleed Echocardiogram 02/23/2021: LVEF 55 to 60%. LV SF normal. Flattened septum consistent with right ventricular volume and pressure overload. Mild diastolic dysfunction. RV mildly dilated. Mild TR. RVSP 33 mmHg Plan: Patient tested positive for COVID-19 Patient currently chest pain-free. Troponins have downtrended. Likely elevated in setting of COVID-19 infection and bilateral PE No anticoagulation due to previous hemorrhagic shock from rectal bleed. IVC filter is in place Continue present management Pt seen in conjunction with Dr. Domingo, who agrees with the assessment and plan of care. - Patient Problems (1) Acute hypoxemic respiratory failure due to COVID-19 Current Visit: Yes Status: Acute (2) Hypotension Current Visit: Yes Status: Acute (3) Pulmonary embolism Current Visit: Yes Status: Acute (4) Type 2 myocardial infarction Current Visit: Yes Status: Acute (5) Bilateral pulmonary embolism Current Visit: Yes Status: Chronic (6) History of rectal bleeding Current Visit: Yes Status: Chronic (7) Presence of IVC filter Current Visit: Yes Status: Chronic Subjective Date of service: 02/24/21 Principal diagnosis: Acute Respiratory Failure, COVID-19, Interval history: Patient resting in bed in no acute distress. Patient denies any chest pain. Patient reports breathing is good on oxygen. Currently on 10 L O2 Not on monitor Objective Vital Signs Temp Pulse Pulse Resp Resp BP BP 02/23/21 23:32 02/23/21 21:35 110 H 22 02/23/21 17:43 97.6 F 103 H 20 109/81 02/23/21 14:10 91 H 18 143/95 Pulse Ox 02/23/21 23:32 94 02/23/21 21:35 02/23/21 17:43 87 02/23/21 14:10 98 - Physical Examination General: Appears Well HEENT: Positive: EOMI, Normocephaly Neck: Positive: neck supple, trachea midline Cardiac: Positive: Reg Rate and Rhythm Lungs: Positive: Normal Breath Sounds Neuro: Positive: Grossly Intact Abdomen: Positive: Soft. Negative: Tender Skin: Negative: Rash Musculoskeletal: No Fluid Collection, No Pain, Normal Range of Motion Extremities: Present: lower extr. pulses. Absent: edema - Labs and Meds CBC 02/24/21 Range/Units 07:58 Hgb 9.0 L (10.1-14.3) gm/dl Hct 30.4 (30.3-42.9) % Plt Count 236 (140-440) K/mm3 Comprehensive Metabolic Panel 02/24/21 Range/Units 07:58 Sodium 142 (137-145) mmol/L Potassium 3.9 (3.6-5.0) mmol/L Chloride 106.0 (98-107) mmol/L Carbon Dioxide 23 (22-30) mmol/L BUN 9 (7-17) mg/dL Creatinine 0.3 L (0.6-1.2) mg/dL Glucose 105 H (65-100) mg/dL Calcium 8.6 (8.4-10.2) mg/dL - Imaging and Cardiology EKG: report reviewed, image reviewed Echo: report reviewed (Echocardiogram 02/23/2021: LVEF 55 to 60%. LV SF normal. Flattened septum consistent with right ventricular volume and pressure overload. Mild diastolic dysfunction. RV mildly dilated. Mild TR. RVSP 33 mmHg.) - EKG Sinus rhythms and dysrhythmias: sinus tachycardia Ventricular dysrhythmias: ventricular premature com
[2021-02-24] MEDS: SODIUM CHLORIDE 0.9% 50 ML IVPB IV SCH (11:15)
--- NOTE | 2021-02-24 12:23 | Electrocardiograph Report ---
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
--- NOTE | 2021-02-24 14:35 | Progress Note ---
Assessment and Plan Cultures: COVID-19 PCR positive A/P: 66-year-old man past medical history GERD, GI bleeds, hypertension presents as Covid PUI: #Covid pneumonia #Acute hypoxic respiratory failure: With 10 L nasal cannula. #Dizziness: Can be associated with Covid versus vertigo. Started on meclizine by primary. Recs: -Continue empiric ceftriaxone azithromycin for now procalcitonin, if low stop. -Remdesivir X 5 days -Not yet a candidate for Actemra -Anticoagulation per hospital protocol -Proning as able Thank you for the consult, we will continue to follow. Mukesh Renae MD [facility] ([facility]) O: [phone] F: [phone] Subjective Date of service: 02/24/21 Principal diagnosis: Acute Respiratory Failure, COVID-19, Interval history: Afebrile, white count 11.1. Covid positive. Ongoing shortness of breath and dizziness. Currently on 10 L nasal cannula. Objective - Exam Narrative Exam: Physical exam deferred to reduce risk of transmission of COVID-19. Please refer to primary team's note. - Constitutional Vitals: Vital Signs Temp Pulse Resp BP Pulse Ox 97.6 F 110 H 22 109/81 94 02/23/21 17:43 02/23/21 21:35 02/23/21 21:35 02/23/21 17:43 02/23/21 23:32 Temperature -Last 24 Hours Temperature 97.6 F - Labs CBC & Chem 7: 02/24/21 07:58 02/24/21 07:58 Labs: Abnormal lab results 02/23/21 02/24/21 02/24/21 Range/Units Unknown 07:58 07:58 Hgb 9.0 L (10.1-14.3) gm/dl Creatinine 0.3 L (0.6-1.2) mg/dL Glucose 105 H (65-100) mg/dL Troponin T 0.035 H D (0.00-0.029) ng/mL Coronavirus (PCR) Positive A (Negative)
[2021-02-24] MEDS: cefTRIAXone/NS 2 GM/100 ML 2 GM/100 ML BAG IV SCH (14:52)
[2021-02-24] MEDS ORDERED: ALBUTEROL 2.5 MG/3 ML NEBU IH PRN (17:28)
[2021-02-25] MEDS: AZITHROMYCIN/NS 500 MG/250 ML 500 MG/250 ML BAG IV SCH (03:08)
[2021-02-25 06:43] LABS: Alanine Aminotransferase 14 units/L (7-56); Albumin 2.7 g/dL (3.9-5); Blood Urea Nitrogen 14 mg/dL (7-17); Calcium 8.5 mg/dL (8.4-10.2); Hemolysis Index 19
[2021-02-25 07:09] LABS: BUN/Creatinine Ratio 35
--- NOTE | 2021-02-25 08:52 | Progress Note ---
Assessment and Plan Assessment and plan: 65-year-old female past medical history of pulmonary embolism, previous tobacco abuse presented to hospital complaining of shortness of breath. This began 2 days prior to admission and has been worsening. She was admitted as Covid PUI. Covid PCR found to be positive on 02/23/2021. Acute hypoxic respiratory failure Bilateral PE Mild pulmonary hypertension COVID-19 pneumonia Elevated troponin Dizziness/vertigo History of rectal bleeding History of IVC filter Hospital course: 02/22/2021: Patient primary complaint is shortnes of breath and dizziness. orthostatic vitals, echo, mri, neuro consult ordered. Has a history of pulmonary embolism but cannot anticoagulate d/t prior hx of hemorrahagic shock from rectal bleed. Elevated troponin/CKMB noted. Suspect PE related but will follow cardiology recommendations. Doubt cardiac etiology. 02/23/2021: Orthostatic vitals not obtained. D/w RN this AM to obtain. COVID positive. ID consultation placed, recs noted. MRI negative for acute findings. Will place PT order due to patient weakness. 02/24/2021. Patient still complains of shortness of breath and dizziness. Dizziness may be related to vertigo. We will start meclizine 25 mg 3 times daily. Patient has a history of pulmonary embolism/DVT but unable to anticoa gulate due to prior history of hemorrhagic shock from rectal bleed. Patient currently requiring 10 L O2. We will continue to wean oxygen as tolerated. Covid PCR positive on 02/23/2021. We will start remdesivir for total of 5 doses. ID following. Follow-up procalcitonin levels to determine need for antibiotics 02/25/2021. Patient requiring 15 L O2. Continue to wean oxygen as tolerated. Continue dexamethasone and remdesivir. Follow-up procalcitonin level. Continue antibiotics until procalcitonin resulted. Echocardiogram from 02/23/2021 reveals LVEF 55-60% with flattened septum consistent with right ventricular pressure and volume overload. Mild diastolic dysfunction. Right ventricle mildly dilated. Mild TR. RVSP 33 mmHg. Continue meclizine for probable vertigo. History Interval history: No new issues Hospitalist Physical - Constitutional Vitals: Temp Pulse Resp BP Pulse Ox 98.2 F 43 L 18 129/64 97 02/25/21 05:02 02/25/21 05:02 02/25/21 05:02 02/25/21 05:02 02/25/21 05:02 General appearance: Present: no acute distress - EENT Eyes: Present: PERRL, EOM intact ENT: hearing intact, clear oral mucosa, dentition normal - Neck Neck: Present: supple, normal ROM - Respiratory Respiratory effort: normal Respiratory: bilateral: CTA - Cardiovascular Rhythm: regular Heart Sounds: Present: S1 & S2. Absent: gallop, rub - Extremities Extremities: no ischemia, No edema, Full ROM - Abdominal General gastrointestinal: soft, non-tender, non-distended, normal bowel sounds - Integumentary Integumentary: Present: clear, warm, dry - Neurologic Neurologic: CNII-XII intact, moves all extremities HEART Score - HEART Score Troponin: Troponin T 0.035 ng/mL (0.00-0.029) H D 02/24/21 07:58 Results - Labs CBC & Chem 7: 02/24/21 07:58 02/25/21 05:00 Labs: Laboratory Last Values WBC 11.1 K/mm3 (4.5-11.0) H 02/23/21 08:01 RBC 3.09 M/mm3 (3.65-5.03) L 02/23/21 08:01 Hgb 9.0 gm/dl (10.1-14.3) L 02/24/21 07:58 Hct 30.4 % (30.3-42.9) 02/24/21 07:58 MCV 101 fl (79-97) H 02/23/21 08:01 MCH 31 pg (28-32) 02/23/21 08:01 MCHC 31 % (30-34) 02/23/21 08:01 RDW 20.2 % (13.2-15.2) H 02/23/21 08:01 Plt Count 236 K/mm3 (140-440) 02/24/21 07:58 Lymph % (Auto) 10.7 % (13.4-35.0) L 02/23/21 08:01 [place] % (Auto) 5.0 % (0.0-7.3) 02/23/21 08:01 Eos % (Auto) 0.0 % (0.0-4.3) 02/23/21 08:01 Baso % (Auto) 0.1 % (0.0-1.8) 02/23/21 08:01 Lymph # (Auto) 1.2 K/mm3 (1.2-5.4) 02/23/21 08:01 [place] # (Auto) 0.6 K/mm3 (0.0-0.8) 02/23/21 08:01 Eos # (Auto) 0.0 K/mm3 (0.0-0.4) 02/23/21 08:01 Baso # (Auto) 0.0 K/mm3 (0.0-0.1) 02/23/21 08:01 Add Manual Diff Complete 02/21/21 23:50 Total Counted 100 02/21/21 23:50 Seg Neutrophils % 84.2 % (40.0-70.0) H 02/23/21 08:01 Seg Neuts % (Manual) 81.0 % (40.0-70.0) H 02/21/21 23:50 Band Neutrophils % 15.0 % 02/21/21 23:50 Lymphocytes % (Manual) 4.0 % (13.4-35.0) L 02/21/21 23:50 Nucleated RBC % 1.0 % (0.0-0.9) H 02/21/21 23:50 Seg Neutrophils # 9.4 K/mm3 (1.8-7.7) H 02/23/21 08:01 Seg Neutrophils # Man 8.7 K/mm3 (1.8-7.7) H 02/21/21 23:50 Band Neutrophils # 1.6 K/mm3 02/21/21 23:50 Lymphocytes # (Manual) 0.4 K/mm3 (1.2-5.4) L 02/21/21 23:50 Abs React Lymphs (Man) 0.0 K/mm3 02/21/21 23:50 Monocytes # (Manual) 0.0 K/mm3 (0.0-0.8) 02/21/21 23:50 Eosinophils # (Manual) 0.0 K/mm3 (0.0-0.4) 02/21/21 23:50 Basophils # (Manual) 0.0 K/mm3 (0.0-0.1) 02/21/21 23:50 Metamyelocytes # 0.0 K/mm3 02/21/21 23:50 Myelocytes # 0.0 K/mm3 02/21/21 23:50 Promyelocytes # 0.0 K/mm3 02/21/21 23:50 Blast Cells # 0.0 K/mm3 02/21/21 23:50 WBC Morphology Not Reportable 02/21/21 23:50 Hypersegmented Neuts Not Reportable 02/21/21 23:50 Hyposegmented Neuts Not Reportable 02/21/21 23:50 Hypogranular Neuts Not Reportable 02/21/21 23:50 Smudge Cells Not Reportable 02/21/21 23:50 Toxic Granulation Not Reportable 02/21/21 23:50 Toxic Vacuolation Not Reportable 02/21/21 23:50 Dohle Bodies Not Reportable 02/21/21 23:50 Pelger-Huet Anomaly Not Reportable 02/21/21 23:50 Lisandro Rods Not Reportable 02/21/21 23:50 Platelet Estimate Consistent w auto 02/21/21 23:50 Clumped Platelets Not Reportable 02/21/21 23:50 Plt Clumps, EDTA Not Reportable 02/21/21 23:50 Large Platelets Not Reportable 02/21/21 23:50 Giant Platelets Not Reportable 02/21/21 23:50 Platelet Satelliting Not Reportable 02/21/21 23:50 Plt Morphology Comment Not Reportable 02/21/21 23:50 RBC Morphology Not Reportable 02/21/21 23:50 Dimorphic RBCs Not Reportable 02/21/21 23:50 Polychromasia Few 02/21/21 23:50 Hypochromasia Not Reportable 02/21/21 23:50 Poikilocytosis Not Reportable 02/21/21 23:50 Anisocytosis 1+ 02/21/21 23:50 Microcytosis Not Reportable 02/21/21 23:50 Macrocytosis Not Reportable 02/21/21 23:50 Spherocytes Not Reportable 02/21/21 23:50 Pappenheimer Bodies Not Reportable 02/21/21 23:50 Sickle Cells Not Reportable 02/21/21 23:50 Target Cells Not Reportable 02/21/21 23:50 Tear Drop Cells Not Reportable 02/21/21 23:50 Ovalocytes Not Reportable 02/21/21 23:50 Helmet Cells Not Reportable 02/21/21 23:50 [place] Bodies Not Reportable 02/21/21 23:50 [place] Rings Not Reportable 02/21/21 23:50 [place] Cells Not Reportable 02/21/21 23:50 Bite Cells Not Reportable 02/21/21 23:50 Crenated Cell Not Reportable 02/21/21 23:50 Elliptocytes Not Reportable 02/21/21 23:50 Acanthocytes (Spur) Not Reportable 02/21/21 23:50 Rouleaux Not Reportable 02/21/21 23:50 Hemoglobin C Crystals Not Reportable 02/21/21 23:50 Schistocytes Not Reportable 02/21/21 23:50 Malaria parasites Not Reportable 02/21/21 23:50 [place] Bodies Not Reportable 02/21/21 23:50 Hem Pathologist Commnt No 02/21/21 23:50 PT 14.5 Sec. (12.2-14.9) 02/22/21 16:16 INR 1.02 (0.87-1.13) 02/22/21 16:16 APTT 29.2 Sec. (24.2-36.6) 02/22/21 16:16 D-Dimer 2905.38 ng/mlDDU (0-234) H 02/25/21 05:00 Sodium 143 mmol/L (137-145) 02/25/21 05:00 Potassium 3.8 mmol/L (3.6-5.0) 02/25/21 05:00 Chloride 107.2 mmol/L (98-107) H 02/25/21 05:00 Carbon Dioxide 22 mmol/L (22-30) 02/25/21 05:00 Anion Gap 18 mmol/L 02/25/21 05:00 BUN 14 mg/dL (7-17) 02/25/21 05:00 Creatinine 0.4 mg/dL (0.6-1.2) L 02/25/21 05:00 Estimated GFR > 60 ml/min 02/25/21 05:00 BUN/Creatinine Ratio 35 % 02/25/21 05:00 Glucose 128 mg/dL (65-100) H 02/25/21 05:00 Lactic Acid 1.50 mmol/L (0.7-2.0) 02/22/21 16:16 Calcium 8.5 mg/dL (8.4-10.2) 02/25/21 05:00 Magnesium 1.80 mg/dL (1.7-2.3) 02/21/21 23:50 Total Bilirubin < 0.20 mg/dL (0.1-1.2) 02/25/21 05:00 AST 14 units/L (5-40) 02/25/21 05:00 ALT 14 units/L (7-56) 02/25/21 05:00 Alkaline Phosphatase 63 units/L (35-129) 02/25/21 05:00 Total Creatine Kinase 17 units/L (30-135) L 02/21/21 23:50 CK-MB (CK-2) 2.9 ng/mL (0.0-4.0) 02/21/21 23:50 CK-MB (CK-2) Rel Index 17.0 (0-4) H 02/21/21 23:50 Troponin T 0.035 ng/mL (0.00-0.029) H D 02/24/21 07:58 C-Reactive Protein 1.60 mg/dL (0.00-1.30) H 02/25/21 05:00 Total Protein 4.9 g/dL (6.3-8.2) L 02/25/21 05:00 Albumin 2.7 g/dL (3.9-5) L 02/25/21 05:00 Albumin/Globulin Ratio 1.2 % 02/25/21 05:00 Triglycerides 93 mg/dL (2-149) 02/21/21 23:50 Cholesterol 161 mg/dL (50-199) 02/21/21 23:50 LDL Cholesterol Direct 100 mg/dL (50-130) 02/21/21 23:50 HDL Cholesterol 46 mg/dL (40-59) 02/21/21 23:50 Cholesterol/HDL Ratio 3.50 % 02/21/21 23:50 Lipase 24 units/L (13-60) 02/21/21 23:50 Coronavirus (PCR) Positive (Negative) A 02/23/21 Unknown Microbiology: Microbiology 02/22/21 01:09 Peripheral/Venous Blood Culture - Preliminary NO GROWTH AFTER 72 HOURS 02/22/21 01:14 Peripheral/Venous Blood Culture - Preliminary NO GROWTH AFTER 72 HOURS Monk/IV: Voiding Method Diaper Active Medications - Current Medications Current Medications: Generic Name Dose Route Start Last Admin Trade Name Freq PRN Reason Stop Dose Admin Acetaminophen 650 mg 02/22/21 02:24 02/24/21 17:47 Acetaminophen 325 Mg Tab PO 650 mg Q4H PRN Administration Pain MILD(1-3)/Fever >100.5/SALAZAR Albuterol 2.5 mg 02/24/21 17:28 Albuterol 2.5 Mg/3 Ml Nebu IH Q4HRT PRN Shortness Of Breath Albuterol/Ipratropium 1 ampul 02/24/21 20:00 02/24/21 20:42 Ipratropium/Albuterol Sulfate 3 Ml Ampul.Neb IH 1 ampul BIDRT GIA Administration Atorvastatin Calcium 40 mg 02/22/21 22:00 02/24/21 22:27 Atorvastatin 40 Mg Tab PO 40 mg QHS GIA Administration Dexamethasone 6 mg 02/22/21 10:00 02/24/21 09:54 Dexamethasone 4 Mg/Ml Vial IV 03/02/21 10:01 6 mg DAILY GIA Administration Famotidine 20 mg 02/22/21 10:00 02/24/21 22:27 Famotidine 20 Mg Tab PO 20 mg BID GIA Administration Hydromorphone HCl 0.5 mg 02/22/21 02:24 Hydromorphone 1 Mg/1 Ml Inj IV Q3H PRN Pain , Severe (7-10) Ceftriaxone Sodium 2 gm in 100 mls @ 200 mls/hr 02/22/21 14:00 02/24/21 14:52 Rocephin/Ns 2 Gm/100 Ml IV 02/26/21 14:29 200 mls/hr Q24H GIA Administration Protocol Azithromycin 500 mg in 250 mls @ 250 mls/hr 02/22/21 03:00 02/25/21 03:08 Zithromax/Ns IV 02/26/21 03:59 250 mls/hr Q24H GIA Administration Protocol REMDESIVIR 100 mg/ Sodium 250 mls @ 500 mls/hr 02/25/21 21:00 Chloride IV 02/28/21 21:29 Q24HR@2100 GIA Ibuprofen 800 mg 02/22/21 08:00 02/24/21 22:21 Ibuprofen 800 Mg Tab PO Not Given TID GIA Meclizine HCl 25 mg 02/24/21 10:18 Meclizine 25 Mg Tab PO Q8H PRN Vertigo Morphine Sulfate 2 mg 02/22/21 02:24 Morphine 2 Mg/1 Ml Inj IV Q4H PRN Pain, Moderate (4-6) Ondansetron HCl 4 mg 02/22/21 02:24 Ondansetron 4 Mg/2 Ml Inj IV Q8H PRN Nausea And Vomiting Sodium Chloride 10 ml 02/22/21 10:00 02/24/21 22:27 Sodium Chloride 0.9% 10 Ml Flush Syringe IV 10 ml BID GIA Administration Sodium Chloride 10 ml 02/22/21 02:24 Sodium Chloride 0.9% 10 Ml Flush Syringe IV PRN PRN LINE FLUSH Sodium Chloride 50 ml 02/24/21 10:00 02/24/21 11:15 Sodium Chloride 0.9% 50 Ml Ivpb IV 02/28/21 21:01 50 ml Q24HR@2100 GIA Administration Nutrition/Malnutrition Assess - Dietary Evaluation Nutrition/Malnutrition Findings: Nutrition Notes Start: 02/24/21 11:50 Freq: Status: Active Protocol: Document 02/24/21 11:50 ADONIS (Rec: 02/24/21 12:16 ADONIS [id number]) Nutrition Notes 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 Current Diet Cardiac Diet (B 02/22). Labs/Tests 02/24: Crea 0.3, Glu 105, Troponin T 0.035. Pertinent Medications 02/24: Nutritionally unremarkable. Height 5 ft 4 in Weight 76.657 kg [place] Body Weight (kg) 54.54 BMI 29.0 Intake Prior to Admission Good Weight change and time frame Pt states having loss weight recently without trying. Weight Status Overweight Subjective/Other Information RD consult for skin risk assessment. Pt shows no signs of concern for skin risk at the time, other than hemorroids, according to physical Assessment History notes. No available information regarding %PO intake of meals at the time. Percent of energy/protein needs met: Prescribed Cardiac Diet provides for energy/protein needs (2,230 Kcal/85 g) during LOS. Burn Absent Trauma Absent GI Symptoms Diarrhea Food Allergy No Skin Integrity/Comment Banded Hemorroid. Minimum of two criteria No Is patient on ventilator? No Is Patient Ambulatory and/or Out of Bed Yes REE-([facility]-ambulatory/OOB) [ [id number] [id number]] Calculation Used for Recommendations [facility] Additional Notes Protein: 0.8-1 g/Kg; 62-77 g/ day. Fluids: 1 ml/Kcal, or as per MD. Nutrition Intervention Change Diet Order: Continue Cardiac Diet. Follow-Up By: 03/03/21 Additional Comments Continue monitoring food tolerance, %PO intake of meals , and BM.
[2021-02-25] MEDS ORDERED: ASPIRIN 325 MG TAB PO SCH (10:00)
[2021-02-25] MEDS: IPRATROPIUM/ALBUTEROL SULFATE 3 ML AMPUL.NEB IH SCH ×2 (10:45→22:12)
[2021-02-25] MEDS ORDERED: APIXABAN 5 MG TAB PO SCH (11:00)
--- NOTE | 2021-02-25 12:08 | Progress Note ---
Assessment and Plan Pt is a 65-year-old female with a hx of bilateral PE (dx 01/17/2021) who was unable to tolerate anticoagulation in the setting of hemorrhagic shock secondary to rectal bleeding (for which she was hospitalized at [facility] starting 01/17/2021). Pt eventually had an IVC filter placed on 01/21/2021. Who is admitted for complaints of dizziness and SOB x 2 days prior to admission COVID-19- ID following Acute Respiratory failure Bilateral PE NSTEMI type 2 Dizziness IVC filter Anemia H/o GI bleed Echocardiogram 02/23/2021: LVEF 55 to 60%. LV SF normal. Flattened septum consistent with right ventricular volume and pressure overload. Mild diastolic dysfunction. RV mildly dilated. Mild TR. RVSP 33 mmHg Plan: Patient tested positive for COVID-19 Patient currently chest pain-free. Troponins have downtrended. Likely elevated in setting of COVID-19 infection and bilateral PE IVC filter is in place Patient expressed complaint of no further improvement of respiratory status. Discussed with her risk of anticoagulation given her history of bleed. Patient expressed desire to attempt anticoagulation for PE Due to COVID status, respiratory status, and bilateral PEs we will initiate Eliquis 5 mg p.o. twice daily with close monitoring of CBC and platelet Venous ultrasound of bilateral lower extremities ordered to rule out DVT Due to patient's respiratory status recommend pulmonology consult Pt seen in conjunction with Dr. Domingo, who agrees with the assessment and plan of care. - Patient Problems (1) Acute hypoxemic respiratory failure due to COVID-19 Current Visit: Yes Status: Acute (2) Hypotension Current Visit: Yes Status: Acute (3) Pulmonary embolism Current Visit: Yes Status: Acute (4) Type 2 myocardial infarction Current Visit: Yes Status: Acute (5) Bilateral pulmonary embolism Current Visit: Yes Status: Chronic (6) History of rectal bleeding Current Visit: Yes Status: Chronic (7) Presence of IVC filter Current Visit: Yes Status: Chronic Subjective Date of service: 02/25/21 Principal diagnosis: Acute Respiratory Failure, COVID-19, Interval history: Patient resting in bed in no acute distress. Patient denies any chest pain. Not on monitor Objective Vital Signs Temp Pulse Pulse Resp Resp BP Pulse Ox 02/25/21 05:02 98.2 F 43 L 18 129/64 97 02/25/21 04:57 97.2 F L 105 H 18 116/86 90 02/24/21 23:00 94 02/24/21 22:03 98.0 F 112 H 18 118/79 94 02/24/21 20:45 96 02/24/21 20:44 102 H 18 02/24/21 17:27 94 02/24/21 17:25 94 02/24/21 17:20 108 H 18 02/24/21 16:30 98.0 F 86 19 129/81 97 02/24/21 13:44 97.9 F 100 H 18 123/81 98 - Physical Examination General: Appears Well HEENT: Positive: EOMI, Normocephaly Neck: Positive: neck supple, trachea midline Cardiac: Positive: Reg Rate and Rhythm Lungs: Positive: Decreased Breath Sounds Neuro: Positive: Grossly Intact Abdomen: Positive: Soft. Negative: Tender Skin: Negative: Rash Musculoskeletal: No Fluid Collection, No Pain, Normal Range of Motion Extremities: Present: lower extr. pulses. Absent: edema - Labs and Meds Cardiac Enzymes 02/25/21 Range/Units 05:00 AST 14 (5-40) units/L Comprehensive Metabolic Panel 02/25/21 Range/Units 05:00 Sodium 143 (137-145) mmol/L Potassium 3.8 (3.6-5.0) mmol/L Chloride 107.2 H (98-107) mmol/L Carbon Dioxide 22 (22-30) mmol/L BUN 14 (7-17) mg/dL Creatinine 0.4 L (0.6-1.2) mg/dL Glucose 128 H (65-100) mg/dL Calcium 8.5 (8.4-10.2) mg/dL AST 14 (5-40) units/L ALT 14 (7-56) units/L Alkaline Phosphatase 63 (35-129) units/L Total Protein 4.9 L (6.3-8.2) g/dL Albumin 2.7 L (3.9-5) g/dL - Imaging and Cardiology EKG: report reviewed, image reviewed Echo: report reviewed (Echocardiogram 02/23/2021: LVEF 55 to 60%. LV SF normal. Flattened septum consistent with right ventricular volume and pressure overload. Mild diastolic dysfunction. RV mildly dilated. Mild TR. RVSP 33 mmHg.) - EKG Sinus rhythms and dysrhythmias: sinus tachycardia Ventricular dysrhythmias: ventricular premature com
[2021-02-25] MEDS: ACETAMINOPHEN 325 MG TAB PO PRN ×2 (12:39→21:54)
[2021-02-25] MEDS: dexAMETHasone 4 MG/ML VIAL IV SCH (12:41)
[2021-02-25] MEDS: APIXABAN 5 MG TAB PO SCH ×2 (12:42→21:54)
[2021-02-25] MEDS: FAMOTIDINE 20 MG TAB PO SCH ×2 (12:47→21:57)
[2021-02-25] MEDS ORDERED: IBUPROFEN 800 MG TAB PO PRN (14:00)
--- NOTE | 2021-02-25 14:59 | Vascular Lab Report ---
DUPLEX DOPPLER LOWER EXTREMITY VEINS, BILATERAL INDICATION: DVT. Acute bilateral leg swelling TECHNIQUE: Duplex doppler imaging was performed through the veins of both lower extremities using venous devonte praveen and other maneuvers. COMPARISON: No relevant prior imaging study available. FINDINGS: Right Common femoral vein: Negative. Right Superficial femoral vein: Negative. Right Popliteal vein: Negative. Right Calf veins: Acute appearing thrombus in the peroneal vein. Left Common femoral vein: Negative. Left Superficial femoral vein: Negative. Left Popliteal vein: Acute appearing thrombus. Left Calf veins: Acute appearing thrombus extending into the peroneal vein. Additional findings: None.. IMPRESSION: 1. Acute DVT in both lower extremities as above. Findings were called to the patient's nurse Taylor by the journeyman pipe welder at 1435 hours Eastern standard time Signer Name: Luis Villarreal MD Signed: 02/25/2021 2:55 PM Workstation Name: [id number]
--- NOTE | 2021-02-25 15:15 | Progress Note ---
Assessment and Plan Cultures: COVID-19 PCR positive A/P: 66-year-old man past medical history GERD, GI bleeds, hypertension presents as Covid PUI: #Covid pneumonia #Acute hypoxic respiratory failure: With 10 L nasal cannula. #Dizziness: Can be associated with Covid versus vertigo. Started on meclizine by primary. #Acute bilateral lower extremity DVT: Anticoagulation per primary. Recs: -Continue empiric ceftriaxone azithromycin for now procalcitonin, if low stop. -Remdesivir X 5 days -Not yet a candidate for Actemra as she is on rebreather. -Anticoagulation per hospital protocol -Proning as able Thank you for the consult, we will continue to follow. Mukesh Renae MD [facility] ([facility]) O: [phone] F: [phone] Subjective Date of service: 02/25/21 Principal diagnosis: Acute Respiratory Failure, COVID-19, Interval history: Afebrile, no acute change. Currently on Venturi mask. Imaging personally reviewed: Duplex ultrasound: Acute DVT bilateral legs Objective - Exam Narrative Exam: Physical exam deferred to reduce risk of transmission of COVID-19. Please refer to primary team's note. - Constitutional Vitals: Vital Signs Temp Pulse Resp BP Pulse Ox 98.2 F 43 L 18 129/64 97 02/25/21 05:02 02/25/21 05:02 02/25/21 05:02 02/25/21 05:02 02/25/21 05:02 Temperature -Last 24 Hours Temperature 98.2 F Temperature 97.2 F Temperature 98.0 F Temperature 98.0 F - Labs CBC & Chem 7: 02/24/21 07:58 02/25/21 05:00 Labs: Abnormal lab results 02/25/21 02/25/21 Range/Units 05:00 05:00 D-Dimer 2905.38 H (0-234) ng/mlDDU Chloride 107.2 H (98-107) mmol/L Creatinine 0.4 L (0.6-1.2) mg/dL Glucose 128 H (65-100) mg/dL C-Reactive Protein 1.60 H (0.00-1.30) mg/dL Total Protein 4.9 L (6.3-8.2) g/dL Albumin 2.7 L (3.9-5) g/dL
--- NOTE | 2021-02-25 15:59 | Consultation ---
History of Present Illness Consult date: 02/25/21 Requesting physician: JUSTUS CANTRELL Reason for consult: hypoxemia, other (COVID) History of present illness: 65 y/o female, acute respiratory failure secondary to COVID positive state, hypercoaguable likely secondary to COVID as well admitted with bilateral PE, DVT and worsening shortness of breath. Originally diagnosed at [facility]. Was not sent out on anticoagulation as she could not tolerate secondary to rectal bleeding. Past History Past Medical History: pulmonary embolism, other (rectal bleeding) Past Surgical History: denies: CABG, PTCA Social history: smoking (former). denies: alcohol abuse Family history: no significant family history Medications and Allergies Allergies Allergy/AdvReac Type Severity Reaction Status Date / Time lisinopril AdvReac Anaphylaxis Verified 02/26/21 10:24 Active Meds: Active Medications Acetaminophen (Acetaminophen 325 Mg Tab) 650 mg PO Q4H PRN PRN Reason: Pain MILD(1-3)/Fever >100.5/SALAZAR Last Admin: 02/25/21 12:39 Dose: 650 mg Albuterol (Albuterol 2.5 Mg/3 Ml Nebu) 2.5 mg IH Q4HRT PRN PRN Reason: Shortness Of Breath Albuterol/Ipratropium (Ipratropium/Albuterol Sulfate 3 Ml Ampul.Neb) 1 ampul IH BIDRT [facility] Last Admin: 02/25/21 10:45 Dose: 1 ampul Apixaban (Apixaban 5 Mg Tab) 5 mg PO Q12HR [facility]; Protocol Last Admin: 02/25/21 12:42 Dose: 5 mg Atorvastatin Calcium (Atorvastatin 40 Mg Tab) 40 mg PO QHS [facility] Last Admin: 02/24/21 22:27 Dose: 40 mg Dexamethasone (Dexamethasone 4 Mg/Ml Vial) 6 mg IV DAILY [facility] Stop: 03/02/21 10:01 Last Admin: 02/25/21 12:41 Dose: 6 mg Famotidine (Famotidine 20 Mg Tab) 20 mg PO BID [facility] Last Admin: 02/25/21 12:47 Dose: 20 mg Hydromorphone HCl (Hydromorphone 1 Mg/1 Ml Inj) 0.5 mg IV Q3H PRN PRN Reason: Pain , Severe (7-10) Ceftriaxone Sodium (Rocephin/Ns 2 Gm/100 Ml) 2 gm in 100 mls @ 200 mls/hr IV Q24H [facility]; Protocol Stop: 02/26/21 14:29 Last Admin: 02/24/21 14:52 Dose: 200 mls/hr Azithromycin (Zithromax/Ns) 500 mg in 250 mls @ 250 mls/hr IV Q24H [facility]; Protocol Stop: 02/26/21 03:59 Last Admin: 02/25/21 03:08 Dose: 250 mls/hr REMDESIVIR 100 mg/ Sodium (Chloride) 250 mls @ 500 mls/hr IV Q24HR@2100 [facility] Stop: 02/28/21 21:29 Ibuprofen (Ibuprofen 800 Mg Tab) 800 mg PO Q8HR PRN PRN Reason: Pain, Moderate (4-6) Meclizine HCl (Meclizine 25 Mg Tab) 25 mg PO Q8H PRN PRN Reason: Vertigo Morphine Sulfate (Morphine 2 Mg/1 Ml Inj) 2 mg IV Q4H PRN PRN Reason: Pain, Moderate (4-6) Ondansetron HCl (Ondansetron 4 Mg/2 Ml Inj) 4 mg IV Q8H PRN PRN Reason: Nausea And Vomiting Sodium Chloride (Sodium Chloride 0.9% 10 Ml Flush Syringe) 10 ml IV BID [facility] Last Admin: 02/25/21 12:43 Dose: 10 ml Sodium Chloride (Sodium Chloride 0.9% 10 Ml Flush Syringe) 10 ml IV PRN PRN PRN Reason: LINE FLUSH Sodium Chloride (Sodium Chloride 0.9% 50 Ml Ivpb) 50 ml IV Q24HR@2100 [facility] Stop: 02/28/21 21:01 Last Admin: 02/24/21 11:15 Dose: 50 ml Physical Examination Vital signs: Vital Signs Temp Pulse Resp BP Pulse Ox 97.4 F L 156 H 24 79/40 72 L 02/21/21 23:02 02/21/21 23:02 02/21/21 23:02 02/21/21 23:02 02/21/21 23:02 Results - Laboratory Findings CBC and BMP: 02/26/21 05:35 02/26/21 05:35 PT/INR, D-dimer PT 14.5 Sec. (12.2-14.9) 02/22/21 16:16 INR 1.02 (0.87-1.13) 02/22/21 16:16 D-Dimer 2905.38 ng/mlDDU (0-234) H 02/25/21 05:00 Abnormal lab findings: Abnormal Labs 02/21/21 02/21/21 02/22/21 23:50 23:50 01:14 WBC RBC 2.91 L Hgb 9.1 L Hct 29.7 L MCV 102 H RDW 20.5 H Lymph % (Auto) Seg Neutrophils % Seg Neuts % (Manual) 81.0 H Lymphocytes % (Manual) 4.0 L Nucleated RBC % 1.0 H Seg Neutrophils # Seg Neutrophils # Man 8.7 H Lymphocytes # (Manual) 0.4 L D-Dimer Chloride Carbon Dioxide 20 L Creatinine Glucose 198 H Lactic Acid 2.10 H* Calcium 8.2 L Total Creatine Kinase 17 L CK-MB (CK-2) Rel Index 17.0 H Troponin T 0.104 H* C-Reactive Protein Total Protein 5.3 L Albumin 2.7 L Coronavirus (PCR) 02/22/21 02/22/21 02/23/21 16:16 16:16 00:58 WBC RBC Hgb 9.0 L Hct MCV RDW Lymph % (Auto) Seg Neutrophils % Seg Neuts % (Manual) Lymphocytes % (Manual) Nucleated RBC % Seg Neutrophils # Seg Neutrophils # Man Lymphocytes # (Manual) D-Dimer Chloride Carbon Dioxide Creatinine Glucose Lactic Acid Calcium Total Creatine Kinase CK-MB (CK-2) Rel Index Troponin T 0.062 H D 0.060 H C-Reactive Protein Total Protein Albumin Coronavirus (PCR) 02/23/21 02/23/21 02/23/21 08:01 08:01 Unknown WBC 11.1 H RBC 3.09 L Hgb 9.6 L Hct MCV 101 H RDW 20.2 H Lymph % (Auto) 10.7 L Seg Neutrophils % 84.2 H Seg Neuts % (Manual) Lymphocytes % (Manual) Nucleated RBC % Seg Neutrophils # 9.4 H Seg Neutrophils # Man Lymphocytes # (Manual) D-Dimer Chloride Carbon Dioxide Creatinine 0.3 L Glucose 118 H Lactic Acid Calcium Total Creatine Kinase CK-MB (CK-2) Rel Index Troponin T C-Reactive Protein Total Protein Albumin Coronavirus (PCR) Positive A 01/04/22 01/04/22 01/05/22 07:58 07:58 05:00 WBC RBC Hgb 9.0 L Hct MCV RDW Lymph % (Auto) Seg Neutrophils % Seg Neuts % (Manual) Lymphocytes % (Manual) Nucleated RBC % Seg Neutrophils # Seg Neutrophils # Man Lymphocytes # (Manual) D-Dimer Chloride 107.2 H Carbon Dioxide Creatinine 0.3 L 0.4 L Glucose 105 H 128 H Lactic Acid Calcium Total Creatine Kinase CK-MB (CK-2) Rel Index Troponin T 0.035 H D C-Reactive Protein 1.60 H Total Protein 4.9 L Albumin 2.7 L Coronavirus (PCR) 02/25/21 05:00 WBC RBC Hgb Hct MCV RDW Lymph % (Auto) Seg Neutrophils % Seg Neuts % (Manual) Lymphocytes % (Manual) Nucleated RBC % Seg Neutrophils # Seg Neutrophils # Man Lymphocytes # (Manual) D-Dimer 2905.38 H Chloride Carbon Dioxide Creatinine Glucose Lactic Acid Calcium Total Creatine Kinase CK-MB (CK-2) Rel Index Troponin T C-Reactive Protein Total Protein Albumin Coronavirus (PCR) Assessment and Plan 65 y/o overweight female with Pulm Embolism and COVID with acute respiratory failure who has already failed anticoagulation once secondary to rectal bleeding now not a candidate for EKOS therapy 1. Prone 2. Steroids 3. Keep as dry as possible
[2021-02-25 17:12] LABS: Hematocrit 28.2 % (30.3-42.9); Hemoglobin 8.7 gm/dl (10.1-14.3); Mean Corpuscular HGB Conc 31 % (30-34); Mean Corpuscular Volume 101 fl (79-97); Platelet Count 252 K/mm3 (140-440)
[2021-02-25 17:13] LABS: Red Cell Distribution Width 20.2 % (13.2-15.2)
[2021-02-25 17:34] LABS: INR 1.36 (0.87-1.13)
[2021-02-25 17:35] LABS: Partial Thromboplastin Time 27.3 Sec. (24.2-36.6)
[2021-02-25] MEDS: cefTRIAXone/NS 2 GM/100 ML 2 GM/100 ML BAG IV SCH (18:15)
[2021-02-25] MEDS: IBUPROFEN 800 MG TAB PO SCH (20:26)
[2021-02-25] MEDS: SODIUM CHLORIDE 0.9% 50 ML IVPB IV SCH (21:54)
[2021-02-25] MEDS: REMDESIVIR 100 MG in SODIUM CHLORIDE 0.9% 250ML 250 ML IV SCH (21:55)
[2021-02-25] MEDS ORDERED: ALBUTEROL 8.5 GM MDI INHALATION IH PRN (22:00)
[2021-02-26] MEDS: AZITHROMYCIN/NS 500 MG/250 ML 500 MG/250 ML BAG IV SCH (02:46)
[2021-02-26 06:15] LABS: Hematocrit 26.8 % (30.3-42.9); Hemoglobin 8.3 gm/dl (10.1-14.3); Mean Corpuscular HGB Conc 31 % (30-34); Mean Corpuscular Volume 98 fl (79-97); Platelet Count 263 K/mm3 (140-440); Red Blood Count 2.73 M/mm3 (3.65-5.03)
[2021-02-26 06:39] LABS: Alanine Aminotransferase 15 units/L (7-56); Albumin 2.8 g/dL (3.9-5); Blood Urea Nitrogen 13 mg/dL (7-17); Calcium 8.6 mg/dL (8.4-10.2); Hemolysis Index 5
[2021-02-26 06:46] LABS: BUN/Creatinine Ratio 33
[2021-02-26 08:36] LABS: Basophils % (Manual) 0 % (0.0-1.8); Eosinophils % (Manual) 0 % (0.0-4.3); Total Cells Counted 100
[2021-02-26 08:37] LABS: Anisocytosis 1+; Large Platelets Few; Platelet Estimate Consistent w Auto; Schistocytes 1+
--- NOTE | 2021-02-26 08:41 | Progress Note ---
Assessment and Plan Assessment and plan: 65-year-old female past medical history of pulmonary embolism, previous tobacco abuse presented to hospital complaining of shortness of breath. This began 2 days prior to admission and has been worsening. She was admitted as Covid PUI. Covid PCR found to be positive on 02/23/2021. Acute hypoxic respiratory failure Bilateral PE Bilateral LE DVT Mild pulmonary hypertension COVID-19 pneumonia Elevated troponin Dizziness/vertigo History of rectal bleeding History of IVC filter Hospital course: 02/22/2021: Patient primary complaint is shortnes of breath and dizziness. orthostatic vitals, echo, mri, neuro consult ordered. Has a history of pulmonary embolism but cannot anticoagulate d/t prior hx of hemorrahagic shock from rectal bleed. Elevated troponin/CKMB noted. Suspect PE related but will follow cardiology recommendations. Doubt cardiac etiology. 02/23/2021: Orthostatic vitals not obtained. D/w RN this AM to obtain. COVID positive. ID consultation placed, recs noted. MRI negative for acute findings. Will place PT order due to patient weakness. 02/24/2021. Patient still complains of shortness of breath and dizziness. Dizziness may be related to vertigo. We will start meclizine 25 mg 3 times daily. Patient has a history of pulmonary embolism/DVT but unable to anticoagulate due to prior history of hemorrhagic shock from rectal bleed. Patient currently requiring 10 L O2. We will continue to wean oxygen as tolerated. Covid PCR positive on 02/23/2021. We will start remdesivir for total of 5 doses. ID following. Follow-up procalcitonin levels to determine need for antibiotics 02/25/2021. Patient requiring 15 L O2. Continue to wean oxygen as tolerated. Continue dexamethasone and remdesivir. Follow-up procalcitonin level. Continue antibiotics until procalcitonin resulted. Echocardiogram from 02/23/2021 reveals LVEF 55-60% with flattened septum consistent with right ventricular pressure and volume overload. Mild diastolic dysfunction. Right ventricle mildly dilated. Mild TR. RVSP 33 mmHg. Continue meclizine for probable vertigo. 02/26/2021. Cardiology has decided to restart anticoagulation given the COVID status, bilateral PEs contributing to poor respiratory status. Eliquis 5 mg twice daily initiated yesterday. Dopplers illustrate bilateral lower extremity DVT. Pulmonary and ID also following. Patient's oxygen has been weaned to 5 L which she is currently tolerating. Continue steroids and remdesivir. Prone positioning as able. History Interval history: No new issues Hospitalist Physical - Constitutional Vitals: Temp Pulse Resp BP Pulse Ox 98.1 F 110 H 20 146/85 89 02/25/21 23:01 02/25/21 23:01 02/25/21 23:01 02/25/21 23:01 02/25/21 23:01 General appearance: Present: no acute distress - EENT Eyes: Present: PERRL, EOM intact ENT: hearing intact, clear oral mucosa, dentition normal - Neck Neck: Present: supple, normal ROM - Respiratory Respiratory effort: normal Respiratory: bilateral: CTA - Cardiovascular Rhythm: regular Heart Sounds: Present: S1 & S2. Absent: gallop, rub - Extremities Extremities: no ischemia, No edema, Full ROM - Abdominal General gastrointestinal: soft, non-tender, non-distended, normal bowel sounds - Integumentary Integumentary: Present: clear, warm, dry - Neurologic Neurologic: CNII-XII intact, moves all extremities HEART Score - HEART Score Troponin: Troponin T 0.035 ng/mL (0.00-0.029) H D 02/24/21 07:58 Results - Labs CBC & Chem 7: 02/26/21 05:35 02/26/21 05:35 Labs: Laboratory Last Values WBC 12.1 K/mm3 (4.5-11.0) H 02/26/21 05:35 RBC 2.73 M/mm3 (3.65-5.03) L 02/26/21 05:35 Hgb 8.3 gm/dl (10.1-14.3) L 02/26/21 05:35 Hct 26.8 % (30.3-42.9) L 02/26/21 05:35 MCV 98 fl (79-97) H 02/26/21 05:35 MCH 30 pg (28-32) 02/26/21 05:35 MCHC 31 % (30-34) 02/26/21 05:35 RDW 20.0 % (13.2-15.2) H 02/26/21 05:35 Plt Count 263 K/mm3 (140-440) 02/26/21 05:35 Lymph % (Auto) 10.7 % (13.4-35.0) L 02/23/21 08:01 Pickett % (Auto) 5.0 % (0.0-7.3) 02/23/21 08:01 Eos % (Auto) 0.0 % (0.0-4.3) 02/23/21 08:01 Baso % (Auto) 0.1 % (0.0-1.8) 02/23/21 08:01 Lymph # (Auto) 1.2 K/mm3 (1.2-5.4) 02/23/21 08:01 Pickett # (Auto) 0.6 K/mm3 (0.0-0.8) 02/23/21 08:01 Eos # (Auto) 0.0 K/mm3 (0.0-0.4) 02/23/21 08:01 Baso # (Auto) 0.0 K/mm3 (0.0-0.1) 02/23/21 08:01 Add Manual Diff Complete 02/21/21 23:50 Total Counted 100 02/21/21 23:50 Seg Neutrophils % 84.2 % (40.0-70.0) H 02/23/21 08:01 Seg Neuts % (Manual) 81.0 % (40.0-70.0) H 02/21/21 23:50 Band Neutrophils % 15.0 % 02/21/21 23:50 Lymphocytes % (Manual) 4.0 % (13.4-35.0) L 02/21/21 23:50 Nucleated RBC % 1.0 % (0.0-0.9) H 02/21/21 23:50 Seg Neutrophils # 9.4 K/mm3 (1.8-7.7) H 02/23/21 08:01 Seg Neutrophils # Man 8.7 K/mm3 (1.8-7.7) H 02/21/21 23:50 Band Neutrophils # 1.6 K/mm3 02/21/21 23:50 Lymphocytes # (Manual) 0.4 K/mm3 (1.2-5.4) L 02/21/21 23:50 Abs React Lymphs (Man) 0.0 K/mm3 02/21/21 23:50 Monocytes # (Manual) 0.0 K/mm3 (0.0-0.8) 02/21/21 23:50 Eosinophils # (Manual) 0.0 K/mm3 (0.0-0.4) 02/21/21 23:50 Basophils # (Manual) 0.0 K/mm3 (0.0-0.1) 02/21/21 23:50 Metamyelocytes # 0.0 K/mm3 02/21/21 23:50 Myelocytes # 0.0 K/mm3 02/21/21 23:50 Promyelocytes # 0.0 K/mm3 02/21/21 23:50 Blast Cells # 0.0 K/mm3 02/21/21 23:50 WBC Morphology Not Reportable 02/21/21 23:50 Hypersegmented Neuts Not Reportable 02/21/21 23:50 Hyposegmented Neuts Not Reportable 02/21/21 23:50 Hypogranular Neuts Not Reportable 02/21/21 23:50 Smudge Cells Not Reportable 02/21/21 23:50 Toxic Granulation Not Reportable 02/21/21 23:50 Toxic Vacuolation Not Reportable 02/21/21 23:50 Dohle Bodies Not Reportable 02/21/21 23:50 Pelger-Huet Anomaly Not Reportable 02/21/21 23:50 Lisandro Rods Not Reportable 02/21/21 23:50 Platelet Estimate Consistent w auto 02/21/21 23:50 Clumped Platelets Not Reportable 02/21/21 23:50 Plt Clumps, EDTA Not Reportable 02/21/21 23:50 Large Platelets Not Reportable 02/21/21 23:50 Giant Platelets Not Reportable 02/21/21 23:50 Platelet Satelliting Not Reportable 02/21/21 23:50 Plt Morphology Comment Not Reportable 02/21/21 23:50 RBC Morphology Not Reportable 02/21/21 23:50 Dimorphic RBCs Not Reportable 02/21/21 23:50 Polychromasia Few 02/21/21 23:50 Hypochromasia Not Reportable 02/21/21 23:50 Poikilocytosis Not Reportable 02/21/21 23:50 Anisocytosis 1+ 02/21/21 23:50 Microcytosis Not Reportable 02/21/21 23:50 Macrocytosis Not Reportable 02/21/21 23:50 Spherocytes Not Reportable 02/21/21 23:50 Pappenheimer Bodies Not Reportable 02/21/21 23:50 Sickle Cells Not Reportable 02/21/21 23:50 Target Cells Not Reportable 02/21/21 23:50 Tear Drop Cells Not Reportable 02/21/21 23:50 Ovalocytes Not Reportable 02/21/21 23:50 Helmet Cells Not Reportable 02/21/21 23:50 Steele-[place] Bodies Not Reportable 02/21/21 23:50 Cope Rings Not Reportable 02/21/21 23:50 Elroy Cells Not Reportable 02/21/21 23:50 Bite Cells Not Reportable 02/21/21 23:50 Crenated Cell Not Reportable 02/21/21 23:50 Elliptocytes Not Reportable 02/21/21 23:50 Acanthocytes (Spur) Not Reportable 02/21/21 23:50 Rouleaux Not Reportable 02/21/21 23:50 Hemoglobin C Crystals Not Reportable 02/21/21 23:50 Schistocytes Not Reportable 02/21/21 23:50 Malaria parasites Not Reportable 02/21/21 23:50 Wilton Bodies Not Reportable 02/21/21 23:50 Hem Pathologist Commnt No 02/21/21 23:50 PT 18.1 Sec. (12.2-14.9) H 02/25/21 16:51 INR 1.36 (0.87-1.13) H 02/25/21 16:51 APTT 27.3 Sec. (24.2-36.6) 02/25/21 16:51 D-Dimer 2905.38 ng/mlDDU (0-234) H 02/25/21 05:00 Sodium 142 mmol/L (137-145) 02/26/21 05:35 Potassium 3.7 mmol/L (3.6-5.0) 02/26/21 05:35 Chloride 108.0 mmol/L (98-107) H 02/26/21 05:35 Carbon Dioxide 22 mmol/L (22-30) 02/26/21 05:35 Anion Gap 16 mmol/L 02/26/21 05:35 BUN 13 mg/dL (7-17) 02/26/21 05:35 Creatinine 0.4 mg/dL (0.6-1.2) L 02/26/21 05:35 Estimated GFR > 60 ml/min 02/26/21 05:35 BUN/Creatinine Ratio 33 % 02/26/21 05:35 Glucose 127 mg/dL (65-100) H 02/26/21 05:35 Lactic Acid 1.50 mmol/L (0.7-2.0) 02/22/21 16:16 Calcium 8.6 mg/dL (8.4-10.2) 02/26/21 05:35 Magnesium 1.80 mg/dL (1.7-2.3) 02/21/21 23:50 Total Bilirubin < 0.20 mg/dL (0.1-1.2) 02/26/21 05:35 AST 11 units/L (5-40) 02/26/21 05:35 ALT 15 units/L (7-56) 02/26/21 05:35 Alkaline Phosphatase 65 units/L (35-129) 02/26/21 05:35 Total Creatine Kinase 17 units/L (30-135) L 02/21/21 23:50 CK-MB (CK-2) 2.9 ng/mL (0.0-4.0) 02/21/21 23:50 CK-MB (CK-2) Rel Index 17.0 (0-4) H 02/21/21 23:50 Troponin T 0.035 ng/mL (0.00-0.029) H D 02/24/21 07:58 C-Reactive Protein 1.60 mg/dL (0.00-1.30) H 02/25/21 05:00 Total Protein 4.9 g/dL (6.3-8.2) L 02/26/21 05:35 Albumin 2.8 g/dL (3.9-5) L 02/26/21 05:35 Albumin/Globulin Ratio 1.3 % 02/26/21 05:35 Triglycerides 93 mg/dL (2-149) 02/21/21 23:50 Cholesterol 161 mg/dL (50-199) 02/21/21 23:50 LDL Cholesterol Direct 100 mg/dL (50-130) 02/21/21 23:50 HDL Cholesterol 46 mg/dL (40-59) 02/21/21 23:50 Cholesterol/HDL Ratio 3.50 % 02/21/21 23:50 Lipase 24 units/L (13-60) 02/21/21 23:50 Coronavirus (PCR) Positive (Negative) A 02/23/21 Unknown Microbiology: Microbiology 02/22/21 01:09 Peripheral/Venous Blood Culture - Preliminary NO GROWTH AFTER 4 DAYS 02/22/21 01:14 Peripheral/Venous Blood Culture - Preliminary NO GROWTH AFTER 4 DAYS Monk/IV: Voiding Method External Female Catheter Active Medications - Current Medications Current Medications: Generic Name Dose Route Start Last Admin Trade Name Freq PRN Reason Stop Dose Admin Acetaminophen 650 mg 02/22/21 02:24 02/25/21 21:54 Acetaminophen 325 Mg Tab PO 650 mg Q4H PRN Administration Pain MILD(1-3)/Fever >100.5/SALAZAR Albuterol 2.5 mg 02/24/21 17:28 Albuterol 2.5 Mg/3 Ml Nebu IH Q4HRT PRN Shortness Of Breath Albuterol 2 puff 02/25/21 22:00 Albuterol 8.5 Gm Mdi Inhalation IH Q4HRT PRN Shortness Of Breath Apixaban 5 mg 02/25/21 11:00 02/25/21 21:54 Apixaban 5 Mg Tab PO 5 mg Q12HR [facility] Administration Protocol Atorvastatin Calcium 40 mg 02/22/21 22:00 02/25/21 21:57 Atorvastatin 40 Mg Tab PO 40 mg QHS [facility] Administration Dexamethasone 6 mg 02/22/21 10:00 02/25/21 12:41 Dexamethasone 4 Mg/Ml Vial IV 03/02/21 10:01 6 mg DAILY [facility] Administration Famotidine 20 mg 02/22/21 10:00 02/25/21 21:57 Famotidine 20 Mg Tab PO 20 mg BID [facility] Administration Hydromorphone HCl 0.5 mg 02/22/21 02:24 Hydromorphone 1 Mg/1 Ml Inj IV Q3H PRN Pain , Severe (7-10) Ceftriaxone Sodium 2 gm in 100 mls @ 200 mls/hr 02/22/21 14:00 02/25/21 18:15 Rocephin/Ns 2 Gm/100 Ml IV 02/26/21 14:29 200 mls/hr Q24H [facility] Administration Protocol REMDESIVIR 100 mg/ Sodium 250 mls @ 500 mls/hr 02/25/21 21:00 02/25/21 21:55 Chloride IV 02/28/21 21:29 500 mls/hr Q24HR@2100 [facility] Administration Ibuprofen 800 mg 02/25/21 14:00 Ibuprofen 800 Mg Tab PO Q8HR PRN Pain, Moderate (4-6) Meclizine HCl 25 mg 02/24/21 10:18 Meclizine 25 Mg Tab PO Q8H PRN Vertigo Morphine Sulfate 2 mg 02/22/21 02:24 Morphine 2 Mg/1 Ml Inj IV Q4H PRN Pain, Moderate (4-6) Ondansetron HCl 4 mg 02/22/21 02:24 Ondansetron 4 Mg/2 Ml Inj IV Q8H PRN Nausea And Vomiting Sodium Chloride 10 ml 02/22/21 10:00 02/25/21 21:54 Sodium Chloride 0.9% 10 Ml Flush Syringe IV 10 ml BID [facility] Administration Sodium Chloride 10 ml 02/22/21 02:24 Sodium Chloride 0.9% 10 Ml Flush Syringe IV PRN PRN LINE FLUSH Sodium Chloride 50 ml 02/24/21 10:00 02/25/21 21:54 Sodium Chloride 0.9% 50 Ml Ivpb IV 02/28/21 21:01 50 ml Q24HR@2100 [facility] Administration Nutrition/Malnutrition Assess - Dietary Evaluation Nutrition/Malnutrition Findings: Nutrition Notes Start: 02/24/21 11:50 Freq: Status: Active Protocol: Document 02/24/21 11:50 ADONIS (Rec: 02/24/21 12:16 ADONIS [id number]) Nutrition Notes 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 Current Diet Cardiac Diet (B 02/22). Labs/Tests 02/24: Crea 0.3, Glu 105, Troponin T 0.035. Pertinent Medications 02/24: Nutritionally unremarkable. Height 5 ft 4 in Weight 76.657 kg Ace Body Weight (kg) 54.54 BMI 29.0 Intake Prior to Admission Good Weight change and time frame Pt states having loss weight recently without trying. Weight Status Overweight Subjective/Other Information RD consult for skin risk assessment. Pt shows no signs of concern for skin risk at the time, other than hemorroids, according to physical Assessment History notes. No available information regarding %PO intake of meals at the time. Percent of energy/protein needs met: Prescribed Cardiac Diet provides for energy/protein needs (2,230 Kcal/85 g) during LOS. Burn Absent Trauma Absent GI Symptoms Diarrhea Food Allergy No Skin Integrity/Comment Banded Hemorroid. Minimum of two criteria No Is patient on ventilator? No Is Patient Ambulatory and/or Out of Bed Yes REE-([place]. Jeor-ambulatory/OOB) [ [id number] [id number]] Calculation Used for Recommendations [place] or Additional Notes Protein: 0.8-1 g/Kg; 62-77 g/ day. Fluids: 1 ml/Kcal, or as per MD. Nutrition Intervention Change Diet Order: Continue Cardiac Diet. Follow-Up By: 03/03/21 Additional Comments Continue monitoring food tolerance, %PO intake of meals , and BM.
[2021-02-26] MEDS: dexAMETHasone 4 MG/ML VIAL IV SCH (09:34)
[2021-02-26] MEDS: FAMOTIDINE 20 MG TAB PO SCH ×2 (09:34→22:54)
[2021-02-26] MEDS: APIXABAN 5 MG TAB PO SCH ×2 (09:34→22:54)
--- NOTE | 2021-02-26 10:24 | Consultation ---
History of Present Illness - Reason for Consult Consult date: 02/26/21 Shortness of breath - History of Present Illness Patient with a history of pulmonary embolism approximately 1 month ago who presented at an outside hospital. She was initially started on heparin however, was unable to tolerate heparin secondary to rectal bleeding. She underwent evaluation and treatment with banding of hemorrhoids. During that admission, an IVC filter was also placed. The patient presents here with worsening shortness of breath and was found to be Covid positive. At time of examination, the patient is resting comfortably on O2 by nasal cannula. She is unable to get up out of bed with extreme dizziness. Past History Past Medical History: pulmonary embolism, other (rectal bleeding) Past Surgical History: denies: CABG, PTCA Social history: smoking (former). denies: alcohol abuse Family history: no significant family history Medications and Allergies Allergies Allergy/AdvReac Type Severity Reaction Status Date / Time lisinopril AdvReac Anaphylaxis Verified 02/22/21 00:02 Active Meds: Active Medications Acetaminophen (Acetaminophen 325 Mg Tab) 650 mg PO Q4H PRN PRN Reason: Pain MILD(1-3)/Fever >100.5/SALAZAR Last Admin: 02/25/21 21:54 Dose: 650 mg Albuterol (Albuterol 2.5 Mg/3 Ml Nebu) 2.5 mg IH Q4HRT PRN PRN Reason: Shortness Of Breath Albuterol (Albuterol 8.5 Gm Mdi Inhalation) 2 puff IH Q4HRT PRN PRN Reason: Shortness Of Breath Apixaban (Apixaban 5 Mg Tab) 5 mg PO Q12HR [facility]; Protocol Last Admin: 02/26/21 09:34 Dose: 5 mg Atorvastatin Calcium (Atorvastatin 40 Mg Tab) 40 mg PO QHS [facility] Last Admin: 02/25/21 21:57 Dose: 40 mg Dexamethasone (Dexamethasone 4 Mg/Ml Vial) 6 mg IV DAILY [facility] Stop: 03/02/21 10:01 Last Admin: 02/26/21 09:34 Dose: 6 mg Famotidine (Famotidine 20 Mg Tab) 20 mg PO BID [facility] Last Admin: 02/26/21 09:34 Dose: 20 mg Hydromorphone HCl (Hydromorphone 1 Mg/1 Ml Inj) 0.5 mg IV Q3H PRN PRN Reason: Pain , Severe (7-10) Ceftriaxone Sodium (Rocephin/Ns 2 Gm/100 Ml) 2 gm in 100 mls @ 200 mls/hr IV Q24H [facility]; Protocol Stop: 02/26/21 14:29 Last Admin: 02/25/21 18:15 Dose: 200 mls/hr REMDESIVIR 100 mg/ Sodium (Chloride) 250 mls @ 500 mls/hr IV Q24HR@2100 [facility] Stop: 02/28/21 21:29 Last Admin: 02/25/21 21:55 Dose: 500 mls/hr Ibuprofen (Ibuprofen 800 Mg Tab) 800 mg PO Q8HR PRN PRN Reason: Pain, Moderate (4-6) Meclizine HCl (Meclizine 25 Mg Tab) 25 mg PO Q8H PRN PRN Reason: Vertigo Morphine Sulfate (Morphine 2 Mg/1 Ml Inj) 2 mg IV Q4H PRN PRN Reason: Pain, Moderate (4-6) Ondansetron HCl (Ondansetron 4 Mg/2 Ml Inj) 4 mg IV Q8H PRN PRN Reason: Nausea And Vomiting Sodium Chloride (Sodium Chloride 0.9% 10 Ml Flush Syringe) 10 ml IV BID [facility] Last Admin: 02/26/21 09:34 Dose: 10 ml Sodium Chloride (Sodium Chloride 0.9% 10 Ml Flush Syringe) 10 ml IV PRN PRN PRN Reason: LINE FLUSH Sodium Chloride (Sodium Chloride 0.9% 50 Ml Ivpb) 50 ml IV Q24HR@2100 [facility] Stop: 02/28/21 21:01 Last Admin: 02/25/21 21:54 Dose: 50 ml Review of Systems All systems: negative Exam - Constitutional Vitals: Temp Pulse Resp BP Pulse Ox 98.1 F 110 H 20 146/85 89 02/25/21 23:01 02/25/21 23:01 02/25/21 23:01 02/25/21 23:01 02/25/21 23:01 General appearance: Present: no acute distress - EENT Eyes: Present: EOM intact ENT: hearing intact - Neck Neck: Present: supple, normal ROM - Respiratory Respiratory effort: normal - Extremities Extremity abnormal: edema (Bilateral lower extremity +1 edema) - Abdominal General gastrointestinal: Present: deferred - Rectal Rectal Exam: deferred - Psychiatric Psychiatric: appropriate mood/affect, cooperative Results - Labs CBC & Chem 7: 02/26/21 05:35 02/26/21 05:35 Labs: Abnormal lab results 02/25/21 02/25/21 02/25/21 Range/Units 16:51 16:51 16:51 WBC (4.5-11.0) K/mm3 RBC 2.80 L (3.65-5.03) M/mm3 Hgb 8.7 L (10.1-14.3) gm/dl Hct 28.2 L (30.3-42.9) % MCV 101 H (79-97) fl RDW 20.2 H (13.2-15.2) % Seg Neuts % (Manual) (40.0-70.0) % Lymphocytes % (Manual) (13.4-35.0) % Seg Neutrophils # Man (1.8-7.7) K/mm3 Lymphocytes # (Manual) (1.2-5.4) K/mm3 PT 18.1 H (12.2-14.9) Sec. INR 1.36 H (0.87-1.13) Chloride (98-107) mmol/L Creatinine 0.5 L (0.6-1.2) mg/dL Glucose (65-100) mg/dL Total Protein (6.3-8.2) g/dL Albumin (3.9-5) g/dL 02/26/21 02/26/21 Range/Units 05:35 05:35 WBC 12.1 H (4.5-11.0) K/mm3 RBC 2.73 L (3.65-5.03) M/mm3 Hgb 8.3 L (10.1-14.3) gm/dl Hct 26.8 L (30.3-42.9) % MCV 98 H (79-97) fl RDW 20.0 H (13.2-15.2) % Seg Neuts % (Manual) 91.0 H (40.0-70.0) % Lymphocytes % (Manual) 6.0 L (13.4-35.0) % Seg Neutrophils # Man 11.0 H (1.8-7.7) K/mm3 Lymphocytes # (Manual) 0.7 L (1.2-5.4) K/mm3 PT (12.2-14.9) Sec. INR (0.87-1.13) Chloride 108.0 H (98-107) mmol/L Creatinine 0.4 L (0.6-1.2) mg/dL Glucose 127 H (65-100) mg/dL Total Protein 4.9 L (6.3-8.2) g/dL Albumin 2.8 L (3.9-5) g/dL Assessment and Plan Patient with shortness of breath who is Covid positive with a history of PE. Unable to anticoagulate at that time secondary to rectal bleeding. The patient did undergo a GI intervention. Will consult GI to determine the patient's risk of bleeding if she is started on anticoagulation. Given the patient's history of PE, a CTA of the chest will be ordered to determine the thrombus burden and if any intervention to reduce this burden could be performed. This will require anticoagulation at a minimum and potentially thrombolytics. Once the patient has been worked up, recommendations can be made as to whether or not any interventions will be needed/necessary.
--- NOTE | 2021-02-26 11:28 | Progress Note ---
Assessment and Plan Pt is a 65-year-old female with a hx of bilateral PE (dx 01/17/2021) who was unable to tolerate anticoagulation in the setting of hemorrhagic shock secondary to rectal bleeding (for which she was hospitalized at [facility] starting 01/17/2021). Pt eventually had an IVC filter placed on 01/21/2021. Who is admitted for complaints of dizziness and SOB x 2 days prior to admission COVID-19- ID following Acute Respiratory failure-pulmonology follow Bilateral PE NSTEMI type 2 Dizziness Bilateral lower extremity DVTs IVC filter Anemia H/o GI bleed Echocardiogram 02/23/2021: LVEF 55 to 60%. LV SF normal. Flattened septum consistent with right ventricular volume and pressure overload. Mild diastolic dysfunction. RV mildly dilated. Mild TR. RVSP 33 mmHg Plan: Venous ultrasound of bilateral lower extremities showed acute bilateral DVT We will continue anticoagulation with Eliquis due to bilateral PEs and bilateral DVTs with close monitoring for signs of bleeding Continue present management Pt seen in conjunction with Dr. Domingo, who agrees with the assessment and plan of care. - Patient Problems (1) Acute hypoxemic respiratory failure due to COVID-19 Current Visit: Yes Status: Acute (2) Hypotension Current Visit: Yes Status: Acute (3) Pulmonary embolism Current Visit: Yes Status: Acute (4) Type 2 myocardial infarction Current Visit: Yes Status: Acute (5) Bilateral pulmonary embolism Current Visit: Yes Status: Chronic (6) History of rectal bleeding Current Visit: Yes Status: Chronic (7) Presence of IVC filter Current Visit: Yes Status: Chronic Subjective Date of service: 02/26/21 Principal diagnosis: Acute Respiratory Failure, COVID-19, Interval history: Patient resting in bed in no acute distress. Patient denies any chest pain. Not on monitor Objective Vital Signs Temp Pulse Resp BP BP Pulse Ox 02/26/21 11:00 93 02/26/21 10:55 98.0 F 97 H 20 111/71 93 02/26/21 08:19 91 H 93 02/26/21 08:18 98.1 F 91 H 19 123/79 92 02/26/21 05:21 98.0 F 98 H 20 136/90 95 02/25/21 23:01 98.1 F 110 H 20 146/85 89 02/25/21 23:00 18 92 02/25/21 22:11 96 02/25/21 12:10 98.4 F 83 18 124/72 95 - Physical Examination General: Appears Well HEENT: Positive: EOMI, Normocephaly Neck: Positive: neck supple, trachea midline Cardiac: Positive: Reg Rate and Rhythm Lungs: Positive: Normal Breath Sounds Neuro: Positive: Grossly Intact Abdomen: Positive: Soft. Negative: Tender Skin: Negative: Rash Musculoskeletal: No Fluid Collection, No Pain, Normal Range of Motion Extremities: Present: lower extr. pulses. Absent: edema - Labs and Meds Cardiac Enzymes 02/26/21 Range/Units 05:35 AST 11 (5-40) units/L Coagulation 02/25/21 Range/Units 16:51 PT 18.1 H (12.2-14.9) Sec. INR 1.36 H (0.87-1.13) APTT 27.3 (24.2-36.6) Sec. CBC 02/25/21 02/26/21 Range/Units 16:51 05:35 WBC 8.0 12.1 H (4.5-11.0) K/mm3 RBC 2.80 L 2.73 L (3.65-5.03) M/mm3 Hgb 8.7 L 8.3 L (10.1-14.3) gm/dl Hct 28.2 L 26.8 L (30.3-42.9) % Plt Count 252 263 (140-440) K/mm3 Comprehensive Metabolic Panel 02/25/21 02/26/21 Range/Units 16:51 05:35 Sodium 142 (137-145) mmol/L Potassium 3.7 (3.6-5.0) mmol/L Chloride 108.0 H (98-107) mmol/L Carbon Dioxide 22 (22-30) mmol/L BUN 13 (7-17) mg/dL Creatinine 0.5 L 0.4 L (0.6-1.2) mg/dL Glucose 127 H (65-100) mg/dL Calcium 8.6 (8.4-10.2) mg/dL AST 11 (5-40) units/L ALT 15 (7-56) units/L Alkaline Phosphatase 65 (35-129) units/L Total Protein 4.9 L (6.3-8.2) g/dL Albumin 2.8 L (3.9-5) g/dL - Imaging and Cardiology EKG: report reviewed, image reviewed Echo: report reviewed (Echocardiogram 02/23/2021: LVEF 55 to 60%. LV SF normal. Flattened septum consistent with right ventricular volume and pressure overload. Mild diastolic dysfunction. RV mildly dilated. Mild TR. RVSP 33 mmHg.) - EKG Sinus rhythms and dysrhythmias: sinus tachycardia Ventricular dysrhythmias: ventricular premature com
--- NOTE | 2021-02-26 11:53 | Progress Note ---
Assessment and Plan Cultures: COVID-19 PCR positive A/P: 66-year-old man past medical history GERD, GI bleeds, hypertension presents as Covid PUI: #Covid pneumonia #Acute hypoxic respiratory failure: With 10 L nasal cannula. #Dizziness: Can be associated with Covid versus vertigo. Started on meclizine by primary. #Acute bilateral lower extremity DVT: Anticoagulation per primary. Recs: -Continue empiric ceftriaxone azithromycin for now procalcitonin, if low stop. Otherwise complete 5 days. -Remdesivir X 5 days -Anticoagulation per hospital protocol/as able to tolerate given history of GI bleeding -Pending CTA of the chest. -Proning as able Thank you for the consult, we will continue to follow. Mukesh Renae MD [facility] ([facility]) O: [phone] F: [phone] Subjective Date of service: 02/26/21 Principal diagnosis: Acute Respiratory Failure, COVID-19, Interval history: Afebrile, white count increased today. On 5L NC. Objective - Exam Narrative Exam: Physical exam deferred to reduce risk of transmission of COVID-19. Please refer to primary team's note. - Constitutional Vitals: Vital Signs Temp Pulse Resp BP Pulse Ox 98.0 F 97 H 20 111/71 93 02/26/21 10:55 02/26/21 10:55 02/26/21 10:55 02/26/21 10:55 02/26/21 11:00 Temperature -Last 24 Hours Temperature 98.0 F Temperature 98.1 F Temperature 98.0 F Temperature 98.1 F Temperature 98.4 F - Labs CBC & Chem 7: 02/26/21 05:35 02/26/21 05:35 Labs: Abnormal lab results 02/25/21 02/25/21 02/25/21 Range/Units 16:51 16:51 16:51 WBC (4.5-11.0) K/mm3 RBC 2.80 L (3.65-5.03) M/mm3 Hgb 8.7 L (10.1-14.3) gm/dl Hct 28.2 L (30.3-42.9) % MCV 101 H (79-97) fl RDW 20.2 H (13.2-15.2) % Seg Neuts % (Manual) (40.0-70.0) % Lymphocytes % (Manual) (13.4-35.0) % Seg Neutrophils # Man (1.8-7.7) K/mm3 Lymphocytes # (Manual) (1.2-5.4) K/mm3 PT 18.1 H (12.2-14.9) Sec. INR 1.36 H (0.87-1.13) Chloride (98-107) mmol/L Creatinine 0.5 L (0.6-1.2) mg/dL Glucose (65-100) mg/dL Total Protein (6.3-8.2) g/dL Albumin (3.9-5) g/dL 02/26/21 02/26/21 Range/Units 05:35 05:35 WBC 12.1 H (4.5-11.0) K/mm3 RBC 2.73 L (3.65-5.03) M/mm3 Hgb 8.3 L (10.1-14.3) gm/dl Hct 26.8 L (30.3-42.9) % MCV 98 H (79-97) fl RDW 20.0 H (13.2-15.2) % Seg Neuts % (Manual) 91.0 H (40.0-70.0) % Lymphocytes % (Manual) 6.0 L (13.4-35.0) % Seg Neutrophils # Man 11.0 H (1.8-7.7) K/mm3 Lymphocytes # (Manual) 0.7 L (1.2-5.4) K/mm3 PT (12.2-14.9) Sec. INR (0.87-1.13) Chloride 108.0 H (98-107) mmol/L Creatinine 0.4 L (0.6-1.2) mg/dL Glucose 127 H (65-100) mg/dL Total Protein 4.9 L (6.3-8.2) g/dL Albumin 2.8 L (3.9-5) g/dL
--- NOTE | 2021-02-26 11:58 | Progress Note ---
Assessment and Plan 65 y/o overweight female with Pulm Embolism and COVID with acute respiratory failure who has already failed anticoagulation once secondary to rectal bleeding now not a candidate for EKOS therapy 02/26/21: No new recs for today. Follow up CTA. Discussed with cards on yesterday and IR has seen today. 1. Prone 2. Steroids 3. Keep as dry as possible Subjective Date of service: 02/26/21 Principal diagnosis: Acute Respiratory Failure, COVID-19, Interval history: Had CTA done this am. Down to 5 liters this am. Objective Vital Signs - 12hr 02/26/21 02/26/21 02/26/21 05:21 08:18 08:19 Temperature 98.0 F 98.1 F Pulse Rate 98 H 91 H 91 H Respiratory 20 19 Rate Blood Pressure 136/90 123/79 O2 Sat by Pulse 95 92 93 Oximetry 02/26/21 02/26/21 10:55 11:00 Temperature 98.0 F Pulse Rate 97 H Respiratory 20 Rate Blood Pressure 111/71 O2 Sat by Pulse 93 93 Oximetry CBC and BMP: 02/27/21 07:32 02/27/21 07:32 ABG, PT/INR, D-dimer: PT/INR, D-dimer PT 18.1 Sec. (12.2-14.9) H 02/25/21 16:51 INR 1.36 (0.87-1.13) H 02/25/21 16:51 D-Dimer 2905.38 ng/mlDDU (0-234) H 02/25/21 05:00 Abnormal lab findings: Abnormal Labs 02/21/21 02/21/21 02/22/21 23:50 23:50 01:14 WBC RBC 2.91 L Hgb 9.1 L Hct 29.7 L MCV 102 H RDW 20.5 H Lymph % (Auto) Seg Neutrophils % Seg Neuts % (Manual) 81.0 H Lymphocytes % (Manual) 4.0 L Nucleated RBC % 1.0 H Seg Neutrophils # Seg Neutrophils # Man 8.7 H Lymphocytes # (Manual) 0.4 L PT INR D-Dimer Chloride Carbon Dioxide 20 L Creatinine Glucose 198 H Lactic Acid 2.10 H* Calcium 8.2 L Total Creatine Kinase 17 L CK-MB (CK-2) Rel Index 17.0 H Troponin T 0.104 H* C-Reactive Protein Total Protein 5.3 L Albumin 2.7 L Coronavirus (PCR) 02/22/21 02/22/21 02/23/21 16:16 16:16 00:58 WBC RBC Hgb 9.0 L Hct MCV RDW Lymph % (Auto) Seg Neutrophils % Seg Neuts % (Manual) Lymphocytes % (Manual) Nucleated RBC % Seg Neutrophils # Seg Neutrophils # Man Lymphocytes # (Manual) PT INR D-Dimer Chloride Carbon Dioxide Creatinine Glucose Lactic Acid Calcium Total Creatine Kinase CK-MB (CK-2) Rel Index Troponin T 0.062 H D 0.060 H C-Reactive Protein Total Protein Albumin Coronavirus (PCR) 02/23/21 02/23/21 02/23/21 08:01 08:01 Unknown WBC 11.1 H RBC 3.09 L Hgb 9.6 L Hct MCV 101 H RDW 20.2 H Lymph % (Auto) 10.7 L Seg Neutrophils % 84.2 H Seg Neuts % (Manual) Lymphocytes % (Manual) Nucleated RBC % Seg Neutrophils # 9.4 H Seg Neutrophils # Man Lymphocytes # (Manual) PT INR D-Dimer Chloride Carbon Dioxide Creatinine 0.3 L Glucose 118 H Lactic Acid Calcium Total Creatine Kinase CK-MB (CK-2) Rel Index Troponin T C-Reactive Protein Total Protein Albumin Coronavirus (PCR) Positive A 02/24/21 02/24/21 02/25/21 07:58 07:58 05:00 WBC RBC Hgb 9.0 L Hct MCV RDW Lymph % (Auto) Seg Neutrophils % Seg Neuts % (Manual) Lymphocytes % (Manual) Nucleated RBC % Seg Neutrophils # Seg Neutrophils # Man Lymphocytes # (Manual) PT INR D-Dimer Chloride 107.2 H Carbon Dioxide Creatinine 0.3 L 0.4 L Glucose 105 H 128 H Lactic Acid Calcium Total Creatine Kinase CK-MB (CK-2) Rel Index Troponin T 0.035 H D C-Reactive Protein 1.60 H Total Protein 4.9 L Albumin 2.7 L Coronavirus (PCR) 02/25/21 02/25/21 02/25/21 05:00 16:51 16:51 WBC RBC 2.80 L Hgb 8.7 L Hct 28.2 L MCV 101 H RDW 20.2 H Lymph % (Auto) Seg Neutrophils % Seg Neuts % (Manual) Lymphocytes % (Manual) Nucleated RBC % Seg Neutrophils # Seg Neutrophils # Man Lymphocytes # (Manual) PT 18.1 H INR 1.36 H D-Dimer 2905.38 H Chloride Carbon Dioxide Creatinine Glucose Lactic Acid Calcium Total Creatine Kinase CK-MB (CK-2) Rel Index Troponin T C-Reactive Protein Total Protein Albumin Coronavirus (PCR) 02/25/21 02/26/21 02/26/21 16:51 05:35 05:35 WBC 12.1 H RBC 2.73 L Hgb 8.3 L Hct 26.8 L MCV 98 H RDW 20.0 H Lymph % (Auto) Seg Neutrophils % Seg Neuts % (Manual) 91.0 H Lymphocytes % (Manual) 6.0 L Nucleated RBC % Seg Neutrophils # Seg Neutrophils # Man 11.0 H Lymphocytes # (Manual) 0.7 L PT INR D-Dimer Chloride 108.0 H Carbon Dioxide Creatinine 0.5 L 0.4 L Glucose 127 H Lactic Acid Calcium Total Creatine Kinase CK-MB (CK-2) Rel Index Troponin T C-Reactive Protein Total Protein 4.9 L Albumin 2.8 L Coronavirus (PCR)
--- NOTE | 2021-02-26 12:35 | Cat Scan Report ---
CTA CHEST WITH CONTRAST INDICATION / CLINICAL INFORMATION: PE 100 ML OMNI 350 . TECHNIQUE: Axial CT images were obtained through the chest after injection of 100 cc of Omnipaque 350 IV contrast. 3 plane MIP and/or 3D reconstructions were produced. All CT scans at this location are performed using CT dose reduction for ALARA by means of automated exposure control. COMPARISON: 02/21/2021 FINDINGS: PULMONARY ARTERIES: There are multiple filling defects within the pulmonary arteries most pronounced within the left main pulmonary artery extending into the segmental left lower and lingular branches. There are also multiple filling defects within the right segmental and subsegmental pulmonary arterie s. There is flattening of the interventricular septum. THORACIC AORTA: No significant abnormality. HEART: No significant abnormality. CORONARY ARTERY CALCIFICATION: None. MEDIASTINUM / JAYDEN: No significant abnormality. PLEURA: No pleural effusion. No pneumothorax. LUNGS: Scattered groundglass opacities. ADDITIONAL FINDINGS: None. UPPER ABDOMEN: No acute findings. SKELETAL STRUCTURES: Scattered degeneration. IMPRESSION: 1. Multiple PEs, to include PEs within the left main pulmonary artery. There is flattening of the int erventricular septum suggesting right heart strain. 2. Groundglass opacities throughout the lungs which may represent atypical infectious process CRITICAL RESULT Time of Discovery (G[employer] FURNACE INSTALLER/CDT): 11:22 AM Time of Communication (GAS FURNACE INSTALLER/CDT): 11:27 AM Licensed Practitioner Receiving Report: Oc ALMANZAR, nurse for Dr. Huerta Read-Back Performed: Yes. Signer Name: Stephan Rivero DO Signed: 02/26/2021 12:31 PM Workstation Name: [id number]
[2021-02-26] MEDS: cefTRIAXone/NS 2 GM/100 ML 2 GM/100 ML BAG IV SCH (14:06)
--- NOTE | 2021-02-26 15:25 | Consultation ---
History of Present Illness - Reason for Consult Consult date: 02/26/21 Colitis Requesting physician: DIONNE HARPER - History of Present Illness Ms. Nielson is a 65-year-old woman who was brought in from the rehab hospital with progressive shortness of breath, and found to be COVID-positive. She was hospitalized from January 17 through February 03 at [facility] with pulmonary embolism and pancolitis with rectal bleeding she underwent an upper endoscopy and a colonoscopy on January 23 which showed a normal upper endoscopy. Colonoscopy was performed to the mid descending colon due to poor prep but it showed confluent colitis. Biopsies were nonspecific and showed either ischemia versus infection versus inflammatory bowel disease. Patient was discharged to rehab on steroid taper. She states that her rectal bleeding resolved 1 week after discharge. Her bowel movements have been regular on a daily to daily basis without any change. She does have some mild lower abdominal discomfort prior to bowel movements she denies any nausea or vomiting. Patient has a history of hemorrhoidal banding in June 23, 2020. GI consult is requested regarding anticoagulation given history of rectal bleeding. Please note that hemoglobin was 8.9 on February 02. Past History Past Medical History: pulmonary embolism, other (Colitis) Past Surgical History: Other (IVC filter -January 21, 2021). denies: CABG, PTCA Social history: smoking (former). denies: alcohol abuse Family history: no significant family history Medications and Allergies Allergies Allergy/AdvReac Type Severity Reaction Status Date / Time lisinopril Allergy Severe Anaphylaxis Verified 02/26/21 12:03 Home Medications Medication Instructions Recorded Confirmed Last Taken Type No Known Home Medications [No 02/26/21 02/26/21 Unknown History Reported Home Medications] Active Meds: Active Medications Acetaminophen (Acetaminophen 325 Mg Tab) 650 mg PO Q4H PRN PRN Reason: Pain MILD(1-3)/Fever >100.5/SALAZAR Last Admin: 02/25/21 21:54 Dose: 650 mg Albuterol (Albuterol 2.5 Mg/3 Ml Nebu) 2.5 mg IH Q4HRT PRN PRN Reason: Shortness Of Breath Albuterol (Albuterol 8.5 Gm Mdi Inhalation) 2 puff IH Q4HRT PRN PRN Reason: Shortness Of Breath Apixaban (Apixaban 5 Mg Tab) 5 mg PO Q12HR [facility]; Protocol Last Admin: 02/26/21 09:34 Dose: 5 mg Atorvastatin Calcium (Atorvastatin 40 Mg Tab) 40 mg PO QHS [facility] Last Admin: 02/25/21 21:57 Dose: 40 mg Dexamethasone (Dexamethasone 4 Mg/Ml Vial) 6 mg IV DAILY [facility] Stop: 03/02/21 10:01 Last Admin: 02/26/21 09:34 Dose: 6 mg Famotidine (Famotidine 20 Mg Tab) 20 mg PO BID [facility] Last Admin: 02/26/21 09:34 Dose: 20 mg Hydromorphone HCl (Hydromorphone 1 Mg/1 Ml Inj) 0.5 mg IV Q3H PRN PRN Reason: Pain , Severe (7-10) REMDESIVIR 100 mg/ Sodium (Chloride) 250 mls @ 500 mls/hr IV Q24HR@2100 [facility] Stop: 02/28/21 21:29 Last Admin: 02/25/21 21:55 Dose: 500 mls/hr Ibuprofen (Ibuprofen 800 Mg Tab) 800 mg PO Q8HR PRN PRN Reason: Pain, Moderate (4-6) Meclizine HCl (Meclizine 25 Mg Tab) 25 mg PO Q8H PRN PRN Reason: Vertigo Morphine Sulfate (Morphine 2 Mg/1 Ml Inj) 2 mg IV Q4H PRN PRN Reason: Pain, Moderate (4-6) Ondansetron HCl (Ondansetron 4 Mg/2 Ml Inj) 4 mg IV Q8H PRN PRN Reason: Nausea And Vomiting Sodium Chloride (Sodium Chloride 0.9% 10 Ml Flush Syringe) 10 ml IV BID [facility] Last Admin: 02/26/21 09:34 Dose: 10 ml Sodium Chloride (Sodium Chloride 0.9% 10 Ml Flush Syringe) 10 ml IV PRN PRN PRN Reason: LINE FLUSH Sodium Chloride (Sodium Chloride 0.9% 50 Ml Ivpb) 50 ml IV Q24HR@2100 [facility] Stop: 02/28/21 21:01 Last Admin: 02/25/21 21:54 Dose: 50 ml Review of Systems All systems: negative (As per HPI) Exam - Constitutional Vitals: Temp Pulse Resp BP Pulse Ox 98.0 F 97 H 20 111/71 93 02/26/21 10:55 02/26/21 10:55 02/26/21 10:55 02/26/21 10:55 02/26/21 11:00 General appearance: Present: no acute distress - EENT Eyes: Present: PERRL, EOM intact ENT: hearing intact - Respiratory Respiratory effort: normal Respiratory: bilateral: CTA (anteriorly) - Cardiovascular Rhythm: regular Heart Sounds: Present: S1 & S2 - Extremities Extremities: No edema Extremity abnormal: cyanosis (Toes) Results - Labs CBC & Chem 7: 02/26/21 05:35 02/26/21 05:35 Labs: Abnormal lab results 02/25/21 02/25/21 02/25/21 Range/Units 16:51 16:51 16:51 WBC (4.5-11.0) K/mm3 RBC 2.80 L (3.65-5.03) M/mm3 Hgb 8.7 L (10.1-14.3) gm/dl Hct 28.2 L (30.3-42.9) % MCV 101 H (79-97) fl RDW 20.2 H (13.2-15.2) % Seg Neuts % (Manual) (40.0-70.0) % Lymphocytes % (Manual) (13.4-35.0) % Seg Neutrophils # Man (1.8-7.7) K/mm3 Lymphocytes # (Manual) (1.2-5.4) K/mm3 PT 18.1 H (12.2-14.9) Sec. INR 1.36 H (0.87-1.13) Chloride (98-107) mmol/L Creatinine 0.5 L (0.6-1.2) mg/dL Glucose (65-100) mg/dL Total Protein (6.3-8.2) g/dL Albumin (3.9-5) g/dL 02/26/21 02/26/21 Range/Units 05:35 05:35 WBC 12.1 H (4.5-11.0) K/mm3 RBC 2.73 L (3.65-5.03) M/mm3 Hgb 8.3 L (10.1-14.3) gm/dl Hct 26.8 L (30.3-42.9) % MCV 98 H (79-97) fl RDW 20.0 H (13.2-15.2) % Seg Neuts % (Manual) 91.0 H (40.0-70.0) % Lymphocytes % (Manual) 6.0 L (13.4-35.0) % Seg Neutrophils # Man 11.0 H (1.8-7.7) K/mm3 Lymphocytes # (Manual) 0.7 L (1.2-5.4) K/mm3 PT (12.2-14.9) Sec. INR (0.87-1.13) Chloride 108.0 H (98-107) mmol/L Creatinine 0.4 L (0.6-1.2) mg/dL Glucose 127 H (65-100) mg/dL Total Protein 4.9 L (6.3-8.2) g/dL Albumin 2.8 L (3.9-5) g/dL Assessment and Plan 1. Pancolitis -on outside CT scan, and by colonoscopy on January 23 this may have been infectious, inflammatory, or ischemic. Patient has been asymptomatic since approximately February 09 given that there has been no dylan GI blood loss, I see no contraindication to anticoagulation. I would monitor her closely and if she is to start developing bleeding, I would stop anticoagulation and start high-dose steroids at 40 mg of Solu-Medrol per day. Currently, she is being given Decadron for her COVID. -After she improves, patient will need outpatient colonoscopy to follow-up on the colitis and see if this truly represents a chronic inflammatory bowel disease versus a transient ischemic or infectious process. -Initiate anticoagulation, and monitor for dylan bleeding I will sign off. Please call as needed.
[2021-02-26] MEDS: ACETAMINOPHEN 325 MG TAB PO PRN (15:28)
[2021-02-26] MEDS: SODIUM CHLORIDE 0.9% 50 ML IVPB IV SCH (22:53)
[2021-02-26] MEDS: REMDESIVIR 100 MG in SODIUM CHLORIDE 0.9% 250ML 250 ML IV SCH (22:54)
[2021-02-27 08:05] LABS: Hematocrit 26.6 % (30.3-42.9); Hemoglobin 8.5 gm/dl (10.1-14.3); Mean Corpuscular HGB Conc 32 % (30-34); Mean Corpuscular Volume 97 fl (79-97); Platelet Count 281 K/mm3 (140-440); Red Blood Count 2.75 M/mm3 (3.65-5.03); Red Cell Distribution Width 19.7 % (13.2-15.2)
[2021-02-27 08:32] LABS: Alanine Aminotransferase 16 units/L (7-56); Albumin 2.5 g/dL (3.9-5); Blood Urea Nitrogen 12 mg/dL (7-17); Calcium 8.8 mg/dL (8.4-10.2); Hemolysis Index 2
[2021-02-27 08:35] LABS: BUN/Creatinine Ratio 30
--- NOTE | 2021-02-27 08:47 | Progress Note ---
Assessment and Plan 65 y/o overweight female with Pulm Embolism and COVID with acute respiratory failure who has already failed anticoagulation once secondary to rectal bleeding now not a candidate for EKOS therapy 02/27/21: Agree with GI assessment. I have no objection to just putting the patient on Prednisone 40 daily now almost as a preventive measure but still addresses inflammation from COVID and colitis. Prone as tolerated. Wean FiO2 for sats >88%. Likely will need home O2 but this can be assessed again when she goes back to rehab. 02/26/21: No new recs for today. Follow up CTA. Discussed with cards on yesterday and IR has seen today. 1. Prone 2. Steroids 3. Keep as dry as possible Subjective Date of service: 02/27/21 Principal diagnosis: Acute Respiratory Failure, COVID-19, Interval history: Patient had CTA yesterday which showed multiple PE's. Still on 5 liters. reviewed GI note from yesterday as well Objective Vital Signs - 12hr 02/26/21 02/27/21 02/27/21 23:20 01:27 04:37 Temperature 97.5 F L 97.9 F Pulse Rate 89 85 Respiratory 16 16 Rate Blood Pressure 116/80 124/80 O2 Sat by Pulse 94 94 96 Oximetry CBC and BMP: 02/27/21 07:32 02/27/21 07:32 ABG, PT/INR, D-dimer: PT/INR, D-dimer PT 18.1 Sec. (12.2-14.9) H 02/25/21 16:51 INR 1.36 (0.87-1.13) H 02/25/21 16:51 D-Dimer 2905.38 ng/mlDDU (0-234) H 02/25/21 05:00 Abnormal lab findings: Abnormal Labs 02/21/21 02/21/21 02/22/21 23:50 23:50 01:14 WBC RBC 2.91 L Hgb 9.1 L Hct 29.7 L MCV 102 H RDW 20.5 H Lymph % (Auto) Seg Neutrophils % Seg Neuts % (Manual) 81.0 H Lymphocytes % (Manual) 4.0 L Nucleated RBC % 1.0 H Seg Neutrophils # Seg Neutrophils # Man 8.7 H Lymphocytes # (Manual) 0.4 L PT INR D-Dimer Chloride Carbon Dioxide 20 L Creatinine Glucose 198 H Lactic Acid 2.10 H* Calcium 8.2 L Total Creatine Kinase 17 L CK-MB (CK-2) Rel Index 17.0 H Troponin T 0.104 H* C-Reactive Protein Total Protein 5.3 L Albumin 2.7 L Coronavirus (PCR) 02/22/21 02/22/21 02/23/21 16:16 16:16 00:58 WBC RBC Hgb 9.0 L Hct MCV RDW Lymph % (Auto) Seg Neutrophils % Seg Neuts % (Manual) Lymphocytes % (Manual) Nucleated RBC % Seg Neutrophils # Seg Neutrophils # Man Lymphocytes # (Manual) PT INR D-Dimer Chloride Carbon Dioxide Creatinine Glucose Lactic Acid Calcium Total Creatine Kinase CK-MB (CK-2) Rel Index Troponin T 0.062 H D 0.060 H C-Reactive Protein Total Protein Albumin Coronavirus (PCR) 02/23/21 02/23/21 02/23/21 08:01 08:01 Unknown WBC 11.1 H RBC 3.09 L Hgb 9.6 L Hct MCV 101 H RDW 20.2 H Lymph % (Auto) 10.7 L Seg Neutrophils % 84.2 H Seg Neuts % (Manual) Lymphocytes % (Manual) Nucleated RBC % Seg Neutrophils # 9.4 H Seg Neutrophils # Man Lymphocytes # (Manual) PT INR D-Dimer Chloride Carbon Dioxide Creatinine 0.3 L Glucose 118 H Lactic Acid Calcium Total Creatine Kinase CK-MB (CK-2) Rel Index Troponin T C-Reactive Protein Total Protein Albumin Coronavirus (PCR) Positive A 02/24/21 02/24/21 02/25/21 07:58 07:58 05:00 WBC RBC Hgb 9.0 L Hct MCV RDW Lymph % (Auto) Seg Neutrophils % Seg Neuts % (Manual) Lymphocytes % (Manual) Nucleated RBC % Seg Neutrophils # Seg Neutrophils # Man Lymphocytes # (Manual) PT INR D-Dimer Chloride 107.2 H Carbon Dioxide Creatinine 0.3 L 0.4 L Glucose 105 H 128 H Lactic Acid Calcium Total Creatine Kinase CK-MB (CK-2) Rel Index Troponin T 0.035 H D C-Reactive Protein 1.60 H Total Protein 4.9 L Albumin 2.7 L Coronavirus (PCR) 02/25/21 02/25/21 02/25/21 05:00 16:51 16:51 WBC RBC 2.80 L Hgb 8.7 L Hct 28.2 L MCV 101 H RDW 20.2 H Lymph % (Auto) Seg Neutrophils % Seg Neuts % (Manual) Lymphocytes % (Manual) Nucleated RBC % Seg Neutrophils # Seg Neutrophils # Man Lymphocytes # (Manual) PT 18.1 H INR 1.36 H D-Dimer 2905.38 H Chloride Carbon Dioxide Creatinine Glucose Lactic Acid Calcium Total Creatine Kinase CK-MB (CK-2) Rel Index Troponin T C-Reactive Protein Total Protein Albumin Coronavirus (PCR) 02/25/21 02/26/21 02/26/21 16:51 05:35 05:35 WBC 12.1 H RBC 2.73 L Hgb 8.3 L Hct 26.8 L MCV 98 H RDW 20.0 H Lymph % (Auto) Seg Neutrophils % Seg Neuts % (Manual) 91.0 H Lymphocytes % (Manual) 6.0 L Nucleated RBC % Seg Neutrophils # Seg Neutrophils # Man 11.0 H Lymphocytes # (Manual) 0.7 L PT INR D-Dimer Chloride 108.0 H Carbon Dioxide Creatinine 0.5 L 0.4 L Glucose 127 H Lactic Acid Calcium Total Creatine Kinase CK-MB (CK-2) Rel Index Troponin T C-Reactive Protein Total Protein 4.9 L Albumin 2.8 L Coronavirus (PCR) 02/27/21 02/27/21 07:32 07:32 WBC RBC 2.75 L Hgb 8.5 L Hct 26.6 L MCV RDW 19.7 H Lymph % (Auto) Seg Neutrophils % Seg Neuts % (Manual) Lymphocytes % (Manual) Nucleated RBC % Seg Neutrophils # Seg Neutrophils # Man Lymphocytes # (Manual) PT INR D-Dimer Chloride 107.9 H Carbon Dioxide Creatinine 0.4 L Glucose 110 H Lactic Acid Calcium Total Creatine Kinase CK-MB (CK-2) Rel Index Troponin T C-Reactive Protein Total Protein 4.6 L Albumin 2.5 L Coronavirus (PCR)
--- NOTE | 2021-02-27 10:00 | Progress Note ---
Assessment and Plan Assessment and plan: 65-year-old female past medical history of pulmonary embolism, previous tobacco abuse presented to hospital complaining of shortness of breath. This began 2 days prior to admission and has been worsening. She was admitted as Covid PUI. Covid PCR found to be positive on 02/23/2021. Acute hypoxic respiratory failure Bilateral PE Bilateral LE DVT Mild pulmonary hypertension COVID-19 pneumonia Elevated troponin Dizziness/vertigo History of rectal bleeding History of IVC filter Hospital course: 02/22/2021: Patient primary complaint is shortnes of breath and dizziness. orthostatic vitals, echo, mri, neuro consult ordered. Has a history of pulmonary embolism but cannot anticoagulate d/t prior hx of hemorrahagic shock from rectal bleed. Elevated troponin/CKMB noted. Suspect PE related but will follow cardiology recommendations. Doubt cardiac etiology. 02/23/2021: Orthostatic vitals not obtained. D/w RN this AM to obtain. COVID positive. ID consultation placed, recs noted. MRI negative for acute findings. Will place PT order due to patient weakness. 02/24/2021. Patient still complains of shortness of breath and dizziness. Dizziness may be related to vertigo. We will start meclizine 25 mg 3 times daily. Patient has a history of pulmonary embolism/DVT but unable to anticoagulate due to prior history of hemorrhagic shock from rectal bleed. Patient currently requiring 10 L O2. We will continue to wean oxygen as tolerated. Covid PCR positive on 02/23/2021. We will start remdesivir for total of 5 doses. ID following. Follow-up procalcitonin levels to determine need for antibiotics 02/25/2021. Patient requiring 15 L O2. Continue to wean oxygen as tolerated. Continue dexamethasone and remdesivir. Follow-up procalcitonin level. Continue antibiotics until procalcitonin resulted. Echocardiogram from 02/23/2021 reveals LVEF 55-60% with flattened septum consistent with right ventricular pressure and volume overload. Mild diastolic dysfunction. Right ventricle mildly dilated. Mild TR. RVSP 33 mmHg. Continue meclizine for probable vertigo. 02/26/2021. Cardiology has decided to restart anticoagulation given the COVID status, bilateral PEs contributing to poor respiratory status. Eliquis 5 mg twice daily initiated yesterday. Dopplers illustrate bilateral lower extremity DVT. Pulmonary and ID also following. Patient's oxygen has been weaned to 5 L which she is currently tolerating. Continue steroids and remdesivir. Prone positioning as able. 02/27/2021. CTA of chest revealed multiple PEs to include PE in the left main pulmonary artery. There is also flattening of the interventricular septum suggesting right heart strain. Continue anticoagulation with Eliquis. Patient is s/p IVC filter placement. Vascular following. Await determinations for potential thrombolytics. Await GI consultation for risk stratification. Cont inue prone positioning as able. Continue steroids. Patient currently on 5 L per nasal cannula. Patient still reports significant dyspnea with exertion. History Interval history: No new issues Hospitalist Physical - Constitutional Vitals: Temp Pulse Resp BP Pulse Ox 97.9 F 85 16 124/80 96 02/27/21 04:37 02/27/21 04:37 02/27/21 04:37 02/27/21 04:37 02/27/21 04:37 General appearance: Present: no acute distress - EENT Eyes: Present: PERRL, EOM intact ENT: hearing intact, clear oral mucosa, dentition normal - Neck Neck: Present: supple, normal ROM - Respiratory Respiratory effort: normal Respiratory: bilateral: CTA - Cardiovascular Rhythm: regular Heart Sounds: Present: S1 & S2. Absent: gallop, rub - Extremities Extremities: no ischemia, No edema, Full ROM - Abdominal General gastrointestinal: soft, non-tender, non-distended, normal bowel sounds - Integumentary Integumentary: Present: clear, warm, dry - Neurologic Neurologic: CNII-XII intact, moves all extremities HEART Score - HEART Score Troponin: Troponin T 0.035 ng/mL (0.00-0.029) H D 02/24/21 07:58 Results - Labs CBC & Chem 7: 02/27/21 07:32 02/27/21 07:32 Labs: Laboratory Last Values WBC 8.7 K/mm3 (4.5-11.0) 02/27/21 07:32 RBC 2.75 M/mm3 (3.65-5.03) L 02/27/21 07:32 Hgb 8.5 gm/dl (10.1-14.3) L 02/27/21 07:32 Hct 26.6 % (30.3-42.9) L 02/27/21 07:32 MCV 97 fl (79-97) 02/27/21 07:32 MCH 31 pg (28-32) 02/27/21 07:32 MCHC 32 % (30-34) 02/27/21 07:32 RDW 19.7 % (13.2-15.2) H 02/27/21 07:32 Plt Count 281 K/mm3 (140-440) 02/27/21 07:32 Lymph % (Auto) 10.7 % (13.4-35.0) L 02/23/21 08:01 Boyle % (Auto) 5.0 % (0.0-7.3) 02/23/21 08:01 Eos % (Auto) 0.0 % (0.0-4.3) 02/23/21 08:01 Baso % (Auto) 0.1 % (0.0-1.8) 02/23/21 08:01 Lymph # (Auto) 1.2 K/mm3 (1.2-5.4) 02/23/21 08:01 Boyle # (Auto) 0.6 K/mm3 (0.0-0.8) 02/23/21 08:01 Eos # (Auto) 0.0 K/mm3 (0.0-0.4) 02/23/21 08:01 Baso # (Auto) 0.0 K/mm3 (0.0-0.1) 02/23/21 08:01 Add Manual Diff Complete 02/26/21 05:35 Total Counted 100 02/26/21 05:35 Seg Neutrophils % 84.2 % (40.0-70.0) H 02/23/21 08:01 Seg Neuts % (Manual) 91.0 % (40.0-70.0) H 02/26/21 05:35 Band Neutrophils % 0 % 02/26/21 05:35 Lymphocytes % (Manual) 6.0 % (13.4-35.0) L 02/26/21 05:35 Reactive Lymphs % (Man) 0 % 02/26/21 05:35 Monocytes % (Manual) 3.0 % (0.0-7.3) 02/26/21 05:35 Eosinophils % (Manual) 0 % (0.0-4.3) 02/26/21 05:35 Basophils % (Manual) 0 % (0.0-1.8) 02/26/21 05:35 Metamyelocytes % 0 % 02/26/21 05:35 Myelocytes % 0 % 02/26/21 05:35 Promyelocytes % 0 % 02/26/21 05:35 Blast Cells % 0 % 02/26/21 05:35 Nucleated RBC % Not Reportable 02/26/21 05:35 Seg Neutrophils # 9.4 K/mm3 (1.8-7.7) H 02/23/21 08:01 Seg Neutrophils # Man 11.0 K/mm3 (1.8-7.7) H 02/26/21 05:35 Band Neutrophils # 0.0 K/mm3 02/26/21 05:35 Lymphocytes # (Manual) 0.7 K/mm3 (1.2-5.4) L 02/26/21 05:35 Abs React Lymphs (Man) 0.0 K/mm3 02/26/21 05:35 Monocytes # (Manual) 0.4 K/mm3 (0.0-0.8) 02/26/21 05:35 Eosinophils # (Manual) 0.0 K/mm3 (0.0-0.4) 02/26/21 05:35 Basophils # (Manual) 0.0 K/mm3 (0.0-0.1) 02/26/21 05:35 Metamyelocytes # 0.0 K/mm3 02/26/21 05:35 Myelocytes # 0.0 K/mm3 02/26/21 05:35 Promyelocytes # 0.0 K/mm3 02/26/21 05:35 Blast Cells # 0.0 K/mm3 02/26/21 05:35 WBC Morphology Not Reportable 02/26/21 05:35 Hypersegmented Neuts Not Reportable 02/26/21 05:35 Hyposegmented Neuts Not Reportable 02/26/21 05:35 Hypogranular Neuts Not Reportable 02/26/21 05:35 Smudge Cells Not Reportable 02/26/21 05:35 Toxic Granulation Not Reportable 02/26/21 05:35 Toxic Vacuolation Not Reportable 02/26/21 05:35 Dohle Bodies Not Reportable 02/26/21 05:35 Pelger-Huet Anomaly Not Reportable 02/26/21 05:35 Lisandro Rods Not Reportable 02/26/21 05:35 Platelet Estimate Consistent w auto 02/26/21 05:35 Clumped Platelets Not Reportable 02/26/21 05:35 Plt Clumps, EDTA Not Reportable 02/26/21 05:35 Large Platelets Few 02/26/21 05:35 Giant Platelets Not Reportable 02/26/21 05:35 Platelet Satelliting Not Reportable 02/26/21 05:35 Plt Morphology Comment Not Reportable 02/26/21 05:35 RBC Morphology Not Reportable 02/26/21 05:35 Dimorphic RBCs Not Reportable 02/26/21 05:35 Polychromasia 1+ 02/26/21 05:35 Hypochromasia Not Reportable 02/26/21 05:35 Poikilocytosis Not Reportable 02/26/21 05:35 Anisocytosis 1+ 02/26/21 05:35 Microcytosis Not Reportable 02/26/21 05:35 Macrocytosis Not Reportable 02/26/21 05:35 Spherocytes Not Reportable 02/26/21 05:35 Pappenheimer Bodies Not Reportable 02/26/21 05:35 Sickle Cells Not Reportable 02/26/21 05:35 Target Cells Not Reportable 02/26/21 05:35 Tear Drop Cells Not Reportable 02/26/21 05:35 Ovalocytes Not Reportable 02/26/21 05:35 Helmet Cells Not Reportable 02/26/21 05:35 Steele-Ragsdale Bodies Not Reportable 02/26/21 05:35 [place] Rings Not Reportable 02/26/21 05:35 Elroy Cells Not Reportable 02/26/21 05:35 Bite Cells Not Reportable 02/26/21 05:35 Crenated Cell Not Reportable 02/26/21 05:35 Elliptocytes Not Reportable 02/26/21 05:35 Acanthocytes (Spur) Not Reportable 02/26/21 05:35 Rouleaux Not Reportable 02/26/21 05:35 Hemoglobin C Crystals Not Reportable 02/26/21 05:35 Schistocytes 1+ 02/26/21 05:35 Malaria parasites Not Reportable 02/26/21 05:35 [place] Bodies Not Reportable 02/26/21 05:35 Hem Pathologist Commnt No 02/26/21 05:35 PT 18.1 Sec. (12.2-14.9) H 02/25/21 16:51 INR 1.36 (0.87-1.13) H 02/25/21 16:51 APTT 27.3 Sec. (24.2-36.6) 02/25/21 16:51 D-Dimer 2905.38 ng/mlDDU (0-234) H 02/25/21 05:00 Sodium 143 mmol/L (137-145) 02/27/21 07:32 Potassium 3.8 mmol/L (3.6-5.0) 02/27/21 07:32 Chloride 107.9 mmol/L (98-107) H 02/27/21 07:32 Carbon Dioxide 23 mmol/L (22-30) 02/27/21 07:32 Anion Gap 16 mmol/L 02/27/21 07:32 BUN 12 mg/dL (7-17) 02/27/21 07:32 Creatinine 0.4 mg/dL (0.6-1.2) L 02/27/21 07:32 Estimated GFR > 60 ml/min 02/27/21 07:32 BUN/Creatinine Ratio 30 % 02/27/21 07:32 Glucose 110 mg/dL (65-100) H 02/27/21 07:32 Lactic Acid 1.50 mmol/L (0.7-2.0) 02/22/21 16:16 Calcium 8.8 mg/dL (8.4-10.2) 02/27/21 07:32 Magnesium 1.80 mg/dL (1.7-2.3) 02/21/21 23:50 Total Bilirubin 0.20 mg/dL (0.1-1.2) 02/27/21 07:32 AST 11 units/L (5-40) 02/27/21 07:32 ALT 16 units/L (7-56) 02/27/21 07:32 Alkaline Phosphatase 61 units/L (35-129) 02/27/21 07:32 Total Creatine Kinase 17 units/L (30-135) L 02/21/21 23:50 CK-MB (CK-2) 2.9 ng/mL (0.0-4.0) 02/21/21 23:50 CK-MB (CK-2) Rel Index 17.0 (0-4) H 02/21/21 23:50 Troponin T 0.035 ng/mL (0.00-0.029) H D 02/24/21 07:58 C-Reactive Protein 1.60 mg/dL (0.00-1.30) H 02/25/21 05:00 Total Protein 4.6 g/dL (6.3-8.2) L 02/27/21 07:32 Albumin 2.5 g/dL (3.9-5) L 02/27/21 07:32 Albumin/Globulin Ratio 1.2 % 02/27/21 07:32 Triglycerides 93 mg/dL (2-149) 02/21/21 23:50 Cholesterol 161 mg/dL (50-199) 02/21/21 23:50 LDL Cholesterol Direct 100 mg/dL (50-130) 02/21/21 23:50 HDL Cholesterol 46 mg/dL (40-59) 02/21/21 23:50 Cholesterol/HDL Ratio 3.50 % 02/21/21 23:50 Lipase 24 units/L (13-60) 02/21/21 23:50 Coronavirus (PCR) Positive (Negative) A 02/23/21 Unknown Microbiology: Microbiology 02/22/21 01:09 Peripheral/Venous Blood Culture - Final NO GROWTH AFTER 5 DAYS 02/22/21 01:14 Peripheral/Venous Blood Culture - Final NO GROWTH AFTER 5 DAYS Monk/IV: Voiding Method External Female Catheter Active Medications - Current Medications Current Medications: Generic Name Dose Route Start Last Admin Trade Name Freq PRN Reason Stop Dose Admin Acetaminophen 650 mg 02/22/21 02:24 02/26/21 15:28 Acetaminophen 325 Mg Tab PO 650 mg Q4H PRN Administration Pain MILD(1-3)/Fever >100.5/SALAZAR Albuterol 2.5 mg 02/24/21 17:28 Albuterol 2.5 Mg/3 Ml Nebu IH Q4HRT PRN Shortness Of Breath Albuterol 2 puff 02/25/21 22:00 Albuterol 8.5 Gm Mdi Inhalation IH Q4HRT PRN Shortness Of Breath Apixaban 5 mg 02/25/21 11:00 02/26/21 22:54 Apixaban 5 Mg Tab PO 5 mg Q12HR GIA Administration Protocol Atorvastatin Calcium 40 mg 02/22/21 22:00 02/26/21 22:54 Atorvastatin 40 Mg Tab PO 40 mg QHS GIA Administration Dexamethasone 6 mg 02/22/21 10:00 02/26/21 09:34 Dexamethasone 4 Mg/Ml Vial IV 03/02/21 10:01 6 mg DAILY GIA Administration Famotidine 20 mg 02/22/21 10:00 02/26/21 22:54 Famotidine 20 Mg Tab PO Not Given BID [facility] Hydromorphone HCl 0.5 mg 02/22/21 02:24 Hydromorphone 1 Mg/1 Ml Inj IV Q3H PRN Pain , Severe (7-10) REMDESIVIR 100 mg/ Sodium 250 mls @ 500 mls/hr 02/25/21 21:00 02/26/21 22:54 Chloride IV 02/28/21 21:29 500 mls/hr Q24HR@2100 [facility] Administration Ibuprofen 800 mg 02/25/21 14:00 Ibuprofen 800 Mg Tab PO Q8HR PRN Pain, Moderate (4-6) Meclizine HCl 25 mg 02/24/21 10:18 Meclizine 25 Mg Tab PO Q8H PRN Vertigo Morphine Sulfate 2 mg 02/22/21 02:24 Morphine 2 Mg/1 Ml Inj IV Q4H PRN Pain, Moderate (4-6) Ondansetron HCl 4 mg 02/22/21 02:24 Ondansetron 4 Mg/2 Ml Inj IV Q8H PRN Nausea And Vomiting Sodium Chloride 10 ml 02/22/21 10:00 02/26/21 22:54 Sodium Chloride 0.9% 10 Ml Flush Syringe IV 10 ml BID GIA Administration Sodium Chloride 10 ml 02/22/21 02:24 Sodium Chloride 0.9% 10 Ml Flush Syringe IV PRN PRN LINE FLUSH Sodium Chloride 50 ml 02/24/21 10:00 02/26/21 22:53 Sodium Chloride 0.9% 50 Ml Ivpb IV 02/28/21 21:01 50 ml Q24HR@2100 [facility] Administration Nutrition/Malnutrition Assess - Dietary Evaluation Nutrition/Malnutrition Findings: Nutrition Notes Start: 02/24/21 11:50 Freq: Status: Active Protocol: Document 02/24/21 11:50 ADONIS (Rec: 02/24/21 12:16 ADONIS [id number]) Nutrition Notes 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 Current Diet Cardiac Diet (B 02/22). Labs/Tests 02/24: Crea 0.3, Glu 105, Troponin T 0.035. Pertinent Medications 02/24: Nutritionally unremarkable. Height 5 ft 4 in Weight 76.657 kg [place] Body Weight (kg) 54.54 BMI 29.0 Intake Prior to Admission Good Weight change and time frame Pt states having loss weight recently without trying. Weight Status Overweight Subjective/Other Information RD consult for skin risk assessment. Pt shows no signs of concern for skin risk at the time, other than hemorroids, according to physical Assessment History notes. No available information regarding %PO intake of meals at the time. Percent of energy/protein needs met: Prescribed Cardiac Diet provides for energy/protein needs (2,230 Kcal/85 g) during LOS. Burn Absent Trauma Absent GI Symptoms Diarrhea Food Allergy No Skin Integrity/Comment Banded Hemorroid. Minimum of two criteria No Is patient on ventilator? No Is Patient Ambulatory and/or Out of Bed Yes REE-(Hooker-St. Jeor-ambulatory/OOB) [ 1698.541 [id number]] Calculation Used for Recommendations Hooker-St Jeor Additional Notes Protein: 0.8-1 g/Kg; 62-77 g/ day. Fluids: 1 ml/Kcal, or as per MD. Nutrition Intervention Change Diet Order: Continue Cardiac Diet. Follow-Up By: 03/03/21 Additional Comments Continue monitoring food tolerance, %PO intake of meals , and BM.
[2021-02-27] MEDS: APIXABAN 5 MG TAB PO SCH ×2 (10:07→22:01)
[2021-02-27] MEDS: FAMOTIDINE 20 MG TAB PO SCH ×2 (10:07→22:01)
[2021-02-27] MEDS: dexAMETHasone 4 MG/ML VIAL IV SCH (10:07)
--- NOTE | 2021-02-27 11:52 | Progress Note ---
Assessment and Plan Pt is a 65-year-old female with a hx of bilateral PE (dx 01/17/2021) who was unable to tolerate anticoagulation in the setting of hemorrhagic shock secondary to rectal bleeding (for which she was hospitalized at [facility] starting 01/17/2021). Pt eventually had an IVC filter placed on 01/21/2021. Who is admitted for complaints of dizziness and SOB x 2 days prior to admission COVID-19- ID following Acute Respiratory failure-pulmonology follow Bilateral PE NSTEMI type 2 Dizziness Bilateral lower extremity DVTs IVC filter Anemia H/o GI bleed Echocardiogram 02/23/2021: LVEF 55 to 60%. LV SF normal. Flattened septum consistent with right ventricular volume and pressure overload. Mild diastolic dysfunction. RV mildly dilated. Mild TR. RVSP 33 mmHg Plan: Will continue anticoagulation with Eliquis due to bilateral PEs and bilateral DVTs with close monitoring for signs of bleeding Continue present management Pt seen in conjunction with Dr. Domingo, who agrees with the assessment and plan of care. - Patient Problems (1) Acute hypoxemic respiratory failure due to COVID-19 Current Visit: Yes Status: Acute (2) Hypotension Current Visit: Yes Status: Acute (3) Pulmonary embolism Current Visit: Yes Status: Acute (4) Type 2 myocardial infarction Current Visit: Yes Status: Acute (5) Bilateral pulmonary embolism Current Visit: Yes Status: Chronic (6) History of rectal bleeding Current Visit: Yes Status: Chronic (7) Presence of IVC filter Current Visit: Yes Status: Chronic Subjective Date of service: 02/27/21 Principal diagnosis: Acute Respiratory Failure, COVID-19, Interval history: Patient resting in bed in no acute distress. Reports feeling about the same Not on monitor Objective Vital Signs Temp Pulse Resp BP Pulse Ox 02/27/21 04:37 97.9 F 85 16 124/80 96 02/27/21 01:27 94 02/26/21 23:20 97.5 F L 89 16 116/80 94 02/26/21 20:05 96 02/26/21 15:57 98.3 F 96 H 26 H 125/78 92 - Physical Examination General: Appears Well HEENT: Positive: EOMI, Normocephaly Neck: Positive: neck supple, trachea midline Cardiac: Positive: Reg Rate and Rhythm Lungs: Positive: Decreased Breath Sounds Neuro: Positive: Grossly Intact Abdomen: Positive: Soft. Negative: Tender Skin: Negative: Rash Musculoskeletal: No Fluid Collection, No Pain, Normal Range of Motion Extremities: Present: lower extr. pulses. Absent: edema - Labs and Meds Cardiac Enzymes 02/27/21 Range/Units 07:32 AST 11 (5-40) units/L CBC 02/27/21 Range/Units 07:32 WBC 8.7 (4.5-11.0) K/mm3 RBC 2.75 L (3.65-5.03) M/mm3 Hgb 8.5 L (10.1-14.3) gm/dl Hct 26.6 L (30.3-42.9) % Plt Count 281 (140-440) K/mm3 Comprehensive Metabolic Panel 02/27/21 Range/Units 07:32 Sodium 143 (137-145) mmol/L Potassium 3.8 (3.6-5.0) mmol/L Chloride 107.9 H (98-107) mmol/L Carbon Dioxide 23 (22-30) mmol/L BUN 12 (7-17) mg/dL Creatinine 0.4 L (0.6-1.2) mg/dL Glucose 110 H (65-100) mg/dL Calcium 8.8 (8.4-10.2) mg/dL AST 11 (5-40) units/L ALT 16 (7-56) units/L Alkaline Phosphatase 61 (35-129) units/L Total Protein 4.6 L (6.3-8.2) g/dL Albumin 2.5 L (3.9-5) g/dL - Imaging and Cardiology EKG: report reviewed, image reviewed Echo: report reviewed (Echocardiogram 02/23/2021: LVEF 55 to 60%. LV SF normal. Flattened septum consistent with right ventricular volume and pressure overload. Mild diastolic dysfunction. RV mildly dilated. Mild TR. RVSP 33 mmHg.) - EKG Sinus rhythms and dysrhythmias: sinus tachycardia Ventricular dysrhythmias: ventricular premature com
--- NOTE | 2021-02-27 13:21 | Progress Note ---
Assessment and Plan Cultures: COVID-19 PCR positive A/P: 66-year-old man past medical history GERD, GI bleeds, hypertension presents as Covid PUI: #Covid pneumonia #Acute hypoxic respiratory failure: With 10 L nasal cannula. #Dizziness: Can be associated with Covid versus vertigo. Started on meclizine by primary. #Acute bilateral lower extremity DVT: Anticoagulation per primary. #Pulmonary emboli Recs: -Continue empiric ceftriaxone azithromycin for now procalcitonin, if low stop. Otherwise complete 5 days. -Remdesivir X 5 days -Anticoagulation per hospital protocol/as able to tolerate given history of GI bleeding -Proning as able Thank you for the consult, we will sign off. Please call with questions. Mukesh Renae MD [facility] ([facility]) O: [phone] F: [phone] Subjective Date of service: 02/27/21 Principal diagnosis: Acute Respiratory Failure, COVID-19, Interval history: Afebrile, white count 8.7. Currently on 5 L nasal cannula. Imaging personally reviewed: Chest CTA: Multiple pulmonary emboli. Positive groundglass opacities throughout the lungs Objective - Exam Narrative Exam: Physical exam deferred to reduce risk of transmission of COVID-19. Please refer to primary team's note. - Constitutional Vitals: Vital Signs Temp Pulse Resp BP Pulse Ox 98.0 F 81 18 115/75 95 02/27/21 12:43 02/27/21 12:43 02/27/21 12:43 02/27/21 12:43 02/27/21 12:43 Temperature -Last 24 Hours Temperature 98.0 F Temperature 97.8 F Temperature 97.9 F Temperature 97.5 F Temperature 98.3 F - Labs CBC & Chem 7: 02/27/21 07:32 02/27/21 07:32 Labs: Abnormal lab results 02/27/21 02/27/21 Range/Units 07:32 07:32 RBC 2.75 L (3.65-5.03) M/mm3 Hgb 8.5 L (10.1-14.3) gm/dl Hct 26.6 L (30.3-42.9) % RDW 19.7 H (13.2-15.2) % Chloride 107.9 H (98-107) mmol/L Creatinine 0.4 L (0.6-1.2) mg/dL Glucose 110 H (65-100) mg/dL Total Protein 4.6 L (6.3-8.2) g/dL Albumin 2.5 L (3.9-5) g/dL
[2021-02-27] MEDS: ACETAMINOPHEN 325 MG TAB PO PRN (18:11)
--- NOTE | 2021-02-27 20:48 | Event Note ---
Date: 02/27/21 If patient remains symptomatic, from her PE, and continues to tolerate anticoagulation, without evidence of bleeding, she may benefit from percutaneous mechanical thrombectomy of her pulmonary emboli.
[2021-02-27] MEDS: REMDESIVIR 100 MG in SODIUM CHLORIDE 0.9% 250ML 250 ML IV SCH (22:00)
[2021-02-27] MEDS: SODIUM CHLORIDE 0.9% 50 ML IVPB IV SCH (22:00)
[2021-02-28 06:06] LABS: Hematocrit 27.8 % (30.3-42.9); Hemoglobin 8.6 gm/dl (10.1-14.3)
--- NOTE | 2021-02-28 09:27 | Progress Note ---
Assessment and Plan - Patient Problems (1) Acute hypoxemic respiratory failure due to COVID-19 Current Visit: Yes Status: Acute (2) Acute respiratory failure Current Visit: Yes Status: Acute (3) Pulmonary embolism Current Visit: Yes Status: Acute (4) SOB (shortness of breath) Current Visit: Yes Status: Acute (5) Bilateral pulmonary embolism Current Visit: Yes Status: Chronic (6) History of rectal bleeding Current Visit: Yes Status: Chronic Subjective Principal diagnosis: Acute Respiratory Failure, COVID-19, Interval history: awake. no complaints Objective Vital Signs - 12hr 02/27/21 02/28/21 02/28/21 23:08 00:15 00:38 Temperature 98.4 F Pulse Rate 89 Respiratory 18 Rate Blood Pressure 129/84 O2 Sat by Pulse 98 96 95 Oximetry 02/28/21 06:11 Temperature 98.2 F Pulse Rate 83 Respiratory 18 Rate Blood Pressure 142/80 O2 Sat by Pulse 96 Oximetry Constitutional: no acute distress Eyes: non-icteric ENT: oropharynx moist Neck: supple Ascultation: Bilateral: diminished breath sounds Cardiovascular: regular rate and rhythm Gastrointestinal: normoactive bowel sounds, soft, non-tender, non-distended Extremities: no cyanosis CBC and BMP: 02/28/21 05:16 02/28/21 05:16 ABG, PT/INR, D-dimer: PT/INR, D-dimer PT 18.1 Sec. (12.2-14.9) H 02/25/21 16:51 INR 1.36 (0.87-1.13) H 02/25/21 16:51 D-Dimer 2905.38 ng/mlDDU (0-234) H 02/25/21 05:00 Abnormal lab findings: Abnormal Labs 02/21/21 02/21/21 02/22/21 23:50 23:50 01:14 WBC RBC 2.91 L Hgb 9.1 L Hct 29.7 L MCV 102 H RDW 20.5 H Lymph % (Auto) Seg Neutrophils % Seg Neuts % (Manual) 81.0 H Lymphocytes % (Manual) 4.0 L Nucleated RBC % 1.0 H Seg Neutrophils # Seg Neutrophils # Man 8.7 H Lymphocytes # (Manual) 0.4 L PT INR D-Dimer Chloride Carbon Dioxide 20 L Creatinine Glucose 198 H Lactic Acid 2.10 H* Calcium 8.2 L Total Creatine Kinase 17 L CK-MB (CK-2) Rel Index 17.0 H Troponin T 0.104 H* C-Reactive Protein Total Protein 5.3 L Albumin 2.7 L Coronavirus (PCR) 02/22/21 02/22/21 02/23/21 16:16 16:16 00:58 WBC RBC Hgb 9.0 L Hct MCV RDW Lymph % (Auto) Seg Neutrophils % Seg Neuts % (Manual) Lymphocytes % (Manual) Nucleated RBC % Seg Neutrophils # Seg Neutrophils # Man Lymphocytes # (Manual) PT INR D-Dimer Chloride Carbon Dioxide Creatinine Glucose Lactic Acid Calcium Total Creatine Kinase CK-MB (CK-2) Rel Index Troponin T 0.062 H D 0.060 H C-Reactive Protein Total Protein Albumin Coronavirus (PCR) 02/23/21 02/23/21 02/23/21 08:01 08:01 Unknown WBC 11.1 H RBC 3.09 L Hgb 9.6 L Hct MCV 101 H RDW 20.2 H Lymph % (Auto) 10.7 L Seg Neutrophils % 84.2 H Seg Neuts % (Manual) Lymphocytes % (Manual) Nucleated RBC % Seg Neutrophils # 9.4 H Seg Neutrophils # Man Lymphocytes # (Manual) PT INR D-Dimer Chloride Carbon Dioxide Creatinine 0.3 L Glucose 118 H Lactic Acid Calcium Total Creatine Kinase CK-MB (CK-2) Rel Index Troponin T C-Reactive Protein Total Protein Albumin Coronavirus (PCR) Positive A 02/24/21 02/24/21 02/25/21 07:58 07:58 05:00 WBC RBC Hgb 9.0 L Hct MCV RDW Lymph % (Auto) Seg Neutrophils % Seg Neuts % (Manual) Lymphocytes % (Manual) Nucleated RBC % Seg Neutrophils # Seg Neutrophils # Man Lymphocytes # (Manual) PT INR D-Dimer Chloride 107.2 H Carbon Dioxide Creatinine 0.3 L 0.4 L Glucose 105 H 128 H Lactic Acid Calcium Total Creatine Kinase CK-MB (CK-2) Rel Index Troponin T 0.035 H D C-Reactive Protein 1.60 H Total Protein 4.9 L Albumin 2.7 L Coronavirus (PCR) 02/25/21 02/25/21 02/25/21 05:00 16:51 16:51 WBC RBC 2.80 L Hgb 8.7 L Hct 28.2 L MCV 101 H RDW 20.2 H Lymph % (Auto) Seg Neutrophils % Seg Neuts % (Manual) Lymphocytes % (Manual) Nucleated RBC % Seg Neutrophils # Seg Neutrophils # Man Lymphocytes # (Manual) PT 18.1 H INR 1.36 H D-Dimer 2905.38 H Chloride Carbon Dioxide Creatinine Glucose Lactic Acid Calcium Total Creatine Kinase CK-MB (CK-2) Rel Index Troponin T C-Reactive Protein Total Protein Albumin Coronavirus (PCR) 02/25/21 02/26/21 02/26/21 16:51 05:35 05:35 WBC 12.1 H RBC 2.73 L Hgb 8.3 L Hct 26.8 L MCV 98 H RDW 20.0 H Lymph % (Auto) Seg Neutrophils % Seg Neuts % (Manual) 91.0 H Lymphocytes % (Manual) 6.0 L Nucleated RBC % Seg Neutrophils # Seg Neutrophils # Man 11.0 H Lymphocytes # (Manual) 0.7 L PT INR D-Dimer Chloride 108.0 H Carbon Dioxide Creatinine 0.5 L 0.4 L Glucose 127 H Lactic Acid Calcium Total Creatine Kinase CK-MB (CK-2) Rel Index Troponin T C-Reactive Protein Total Protein 4.9 L Albumin 2.8 L Coronavirus (PCR) 02/27/21 02/27/21 02/28/21 07:32 07:32 05:16 WBC RBC 2.75 L Hgb 8.5 L 8.6 L Hct 26.6 L 27.8 L MCV RDW 19.7 H Lymph % (Auto) Seg Neutrophils % Seg Neuts % (Manual) Lymphocytes % (Manual) Nucleated RBC % Seg Neutrophils # Seg Neutrophils # Man Lymphocytes # (Manual) PT INR D-Dimer Chloride 107.9 H Carbon Dioxide Creatinine 0.4 L Glucose 110 H Lactic Acid Calcium Total Creatine Kinase CK-MB (CK-2) Rel Index Troponin T C-Reactive Protein Total Protein 4.6 L Albumin 2.5 L Coronavirus (PCR) 02/28/21 05:16 WBC RBC Hgb Hct MCV RDW Lymph % (Auto) Seg Neutrophils % Seg Neuts % (Manual) Lymphocytes % (Manual) Nucleated RBC % Seg Neutrophils # Seg Neutrophils # Man Lymphocytes # (Manual) PT INR D-Dimer Chloride Carbon Dioxide Creatinine 0.4 L Glucose Lactic Acid Calcium Total Creatine Kinase CK-MB (CK-2) Rel Index Troponin T C-Reactive Protein Total Protein Albumin Coronavirus (PCR)
--- NOTE | 2021-02-28 10:29 | Progress Note ---
Assessment and Plan Assessment and plan: 65-year-old female past medical history of pulmonary embolism, previous tobacco abuse presented to hospital complaining of shortness of breath. This began 2 days prior to admission and has been worsening. She was admitted as Covid PUI. Covid PCR found to be positive on 02/23/2021. Acute hypoxic respiratory failure Bilateral PE Bilateral LE DVT Mild pulmonary hypertension COVID-19 pneumonia Elevated troponin Dizziness/vertigo History of rectal bleeding History of IVC filter Hospital course: 02/22/2021: Patient primary complaint is shortnes of breath and dizziness. orthostatic vitals, echo, mri, neuro consult ordered. Has a history of pulmonary embolism but cannot anticoagulate d/t prior hx of hemorrahagic shock from rectal bleed. Elevated troponin/CKMB noted. Suspect PE related but will follow cardiology recommendations. Doubt cardiac etiology. 02/23/2021: Orthostatic vitals not obtained. D/w RN this AM to obtain. COVID positive. ID consultation placed, recs noted. MRI negative for acute findings. Will place PT order due to patient weakness. 02/24/2021. Patient still complains of shortness of breath and dizziness. Dizziness may be related to vertigo. We will start meclizine 25 mg 3 times daily. Patient has a history of pulmonary embolism/DVT but unable to anticoagulate due to prior history of hemorrhagic shock from rectal bleed. Patient currently requiring 10 L O2. We will continue to wean oxygen as tolerated. Covid PCR positive on 02/23/2021. We will start remdesivir for total of 5 doses. ID following. Follow-up procalcitonin levels to determine need for antibiotics 02/25/2021. Patient requiring 15 L O2. Continue to wean oxygen as tolerated. Continue dexamethasone and remdesivir. Follow-up procalcitonin level. Continue antibiotics until procalcitonin resulted. Echocardiogram from 02/23/2021 reveals LVEF 55-60% with flattened septum consistent with right ventricular pressure and volume overload. Mild diastolic dysfunction. Right ventricle mildly dilated. Mild TR. RVSP 33 mmHg. Continue meclizine for probable vertigo. 02/26/2021. Cardiology has decided to restart anticoagulation given the COVID status, bilateral PEs contributing to poor respiratory status. Eliquis 5 mg twice daily initiated yesterday. Dopplers illustrate bilateral lower extremity DVT. Pulmonary and ID also following. Patient's oxygen has been weaned to 5 L which she is currently tolerating. Continue steroids and remdesivir. Prone positioning as able. 02/27/2021. CTA of chest revealed multiple PEs to include PE in the left main pulmonary artery. There is also flattening of the interventricular septum suggesting right heart strain. Continue anticoagulation with Eliquis. Patient is s/p IVC filter placement. Vascular following. Await determinations for potential thrombolytics. Await GI consultation for risk stratification. Cont inue prone positioning as able. Continue steroids. Patient currently on 5 L per nasal cannula. Patient still reports significant dyspnea with exertion. 02/28/2021. The patient reports some scant bleeding per nurses aide when she was cleaned this morning. I discussed with nursing who reports no active bleeding at present. Patient has had no further episodes of any bleeding. Continue anticoagulation and monitor very closely. As previously reported, patient with prior hx of hemorrahagic shock from rectal bleed. We will check Hemoccult of stool. If the patient truly does have bleeding, GI recommends stopping anticoagulation and starting high-dose steroids at 40 mg of Solu-Medrol per day. Patient still requiring 5 L with FiO2 of 40% via nasal cannula. Continue prone positioning as able. History Interval history: No new issues Hospitalist Physical - Constitutional Vitals: Temp Pulse Resp BP Pulse Ox 98.2 F 83 18 142/80 97 02/28/21 06:11 02/28/21 06:11 02/28/21 06:11 02/28/21 06:11 02/28/21 09:45 General appearance: Present: no acute distress - EENT Eyes: Present: PERRL, EOM intact ENT: hearing intact, clear oral mucosa, dentition normal - Neck Neck: Present: supple, normal ROM - Respiratory Respiratory effort: normal Respiratory: bilateral: CTA - Cardiovascular Rhythm: regular Heart Sounds: Present: S1 & S2. Absent: gallop, rub - Extremities Extremities: no ischemia, No edema, Full ROM - Abdominal General gastrointestinal: soft, non-tender, non-distended, normal bowel sounds - Integumentary Integumentary: Present: clear, warm, dry - Neurologic Neurologic: CNII-XII intact, moves all extremities HEART Score - HEART Score Troponin: Troponin T 0.035 ng/mL (0.00-0.029) H D 02/24/21 07:58 Results - Labs CBC & Chem 7: 02/28/21 05:16 02/28/21 05:16 Labs: Laboratory Last Values WBC 8.7 K/mm3 (4.5-11.0) 02/27/21 07:32 RBC 2.75 M/mm3 (3.65-5.03) L 02/27/21 07:32 Hgb 8.6 gm/dl (10.1-14.3) L 02/28/21 05:16 Hct 27.8 % (30.3-42.9) L 02/28/21 05:16 MCV 97 fl (79-97) 02/27/21 07:32 MCH 31 pg (28-32) 02/27/21 07:32 MCHC 32 % (30-34) 02/27/21 07:32 RDW 19.7 % (13.2-15.2) H 02/27/21 07:32 Plt Count 331 K/mm3 (140-440) 02/28/21 05:16 Lymph % (Auto) 10.7 % (13.4-35.0) L 02/23/21 08:01 [place] % (Auto) 5.0 % (0.0-7.3) 02/23/21 08:01 Eos % (Auto) 0.0 % (0.0-4.3) 02/23/21 08:01 Baso % (Auto) 0.1 % (0.0-1.8) 02/23/21 08:01 Lymph # (Auto) 1.2 K/mm3 (1.2-5.4) 02/23/21 08:01 [place] # (Auto) 0.6 K/mm3 (0.0-0.8) 02/23/21 08:01 Eos # (Auto) 0.0 K/mm3 (0.0-0.4) 02/23/21 08:01 Baso # (Auto) 0.0 K/mm3 (0.0-0.1) 02/23/21 08:01 Add Manual Diff Complete 02/26/21 05:35 Total Counted 100 02/26/21 05:35 Seg Neutrophils % 84.2 % (40.0-70.0) H 02/23/21 08:01 Seg Neuts % (Manual) 91.0 % (40.0-70.0) H 02/26/21 05:35 Band Neutrophils % 0 % 02/26/21 05:35 Lymphocytes % (Manual) 6.0 % (13.4-35.0) L 02/26/21 05:35 Reactive Lymphs % (Man) 0 % 02/26/21 05:35 Monocytes % (Manual) 3.0 % (0.0-7.3) 02/26/21 05:35 Eosinophils % (Manual) 0 % (0.0-4.3) 02/26/21 05:35 Basophils % (Manual) 0 % (0.0-1.8) 02/26/21 05:35 Metamyelocytes % 0 % 02/26/21 05:35 Myelocytes % 0 % 02/26/21 05:35 Promyelocytes % 0 % 02/26/21 05:35 Blast Cells % 0 % 02/26/21 05:35 Nucleated RBC % Not Reportable 02/26/21 05:35 Seg Neutrophils # 9.4 K/mm3 (1.8-7.7) H 02/23/21 08:01 Seg Neutrophils # Man 11.0 K/mm3 (1.8-7.7) H 02/26/21 05:35 Band Neutrophils # 0.0 K/mm3 02/26/21 05:35 Lymphocytes # (Manual) 0.7 K/mm3 (1.2-5.4) L 02/26/21 05:35 Abs React Lymphs (Man) 0.0 K/mm3 02/26/21 05:35 Monocytes # (Manual) 0.4 K/mm3 (0.0-0.8) 02/26/21 05:35 Eosinophils # (Manual) 0.0 K/mm3 (0.0-0.4) 02/26/21 05:35 Basophils # (Manual) 0.0 K/mm3 (0.0-0.1) 02/26/21 05:35 Metamyelocytes # 0.0 K/mm3 02/26/21 05:35 Myelocytes # 0.0 K/mm3 02/26/21 05:35 Promyelocytes # 0.0 K/mm3 02/26/21 05:35 Blast Cells # 0.0 K/mm3 02/26/21 05:35 WBC Morphology Not Reportable 02/26/21 05:35 Hypersegmented Neuts Not Reportable 02/26/21 05:35 Hyposegmented Neuts Not Reportable 02/26/21 05:35 Hypogranular Neuts Not Reportable 02/26/21 05:35 Smudge Cells Not Reportable 02/26/21 05:35 Toxic Granulation Not Reportable 02/26/21 05:35 Toxic Vacuolation Not Reportable 02/26/21 05:35 Dohle Bodies Not Reportable 02/26/21 05:35 Pelger-Huet Anomaly Not Reportable 02/26/21 05:35 Lisandro Rods Not Reportable 02/26/21 05:35 Platelet Estimate Consistent w auto 02/26/21 05:35 Clumped Platelets Not Reportable 02/26/21 05:35 Plt Clumps, EDTA Not Reportable 02/26/21 05:35 Large Platelets Few 02/26/21 05:35 Giant Platelets Not Reportable 02/26/21 05:35 Platelet Satelliting Not Reportable 02/26/21 05:35 Plt Morphology Comment Not Reportable 02/26/21 05:35 RBC Morphology Not Reportable 02/26/21 05:35 Dimorphic RBCs Not Reportable 02/26/21 05:35 Polychromasia 1+ 02/26/21 05:35 Hypochromasia Not Reportable 02/26/21 05:35 Poikilocytosis Not Reportable 02/26/21 05:35 Anisocytosis 1+ 02/26/21 05:35 Microcytosis Not Reportable 02/26/21 05:35 Macrocytosis Not Reportable 02/26/21 05:35 Spherocytes Not Reportable 02/26/21 05:35 Pappenheimer Bodies Not Reportable 02/26/21 05:35 Sickle Cells Not Reportable 02/26/21 05:35 Target Cells Not Reportable 02/26/21 05:35 Tear Drop Cells Not Reportable 02/26/21 05:35 Ovalocytes Not Reportable 02/26/21 05:35 Helmet Cells Not Reportable 02/26/21 05:35 [place] Bodies Not Reportable 02/26/21 05:35 [place] Rings Not Reportable 02/26/21 05:35 [place] Cells Not Reportable 02/26/21 05:35 Bite Cells Not Reportable 02/26/21 05:35 Crenated Cell Not Reportable 02/26/21 05:35 Elliptocytes Not Reportable 02/26/21 05:35 Acanthocytes (Spur) Not Reportable 02/26/21 05:35 Rouleaux Not Reportable 02/26/21 05:35 Hemoglobin C Crystals Not Reportable 02/26/21 05:35 Schistocytes 1+ 02/26/21 05:35 Malaria parasites Not Reportable 02/26/21 05:35 [place] Bodies Not Reportable 02/26/21 05:35 Hem Pathologist Commnt No 02/26/21 05:35 PT 18.1 Sec. (12.2-14.9) H 02/25/21 16:51 INR 1.36 (0.87-1.13) H 02/25/21 16:51 APTT 27.3 Sec. (24.2-36.6) 02/25/21 16:51 D-Dimer 2905.38 ng/mlDDU (0-234) H 02/25/21 05:00 Sodium 143 mmol/L (137-145) 02/27/21 07:32 Potassium 3.8 mmol/L (3.6-5.0) 02/27/21 07:32 Chloride 107.9 mmol/L (98-107) H 02/27/21 07:32 Carbon Dioxide 23 mmol/L (22-30) 02/27/21 07:32 Anion Gap 16 mmol/L 02/27/21 07:32 BUN 12 mg/dL (7-17) 02/27/21 07:32 Creatinine 0.4 mg/dL (0.6-1.2) L 02/28/21 05:16 Estimated GFR > 60 ml/min 02/28/21 05:16 BUN/Creatinine Ratio 30 % 02/27/21 07:32 Glucose 110 mg/dL (65-100) H 02/27/21 07:32 Lactic Acid 1.50 mmol/L (0.7-2.0) 02/22/21 16:16 Calcium 8.8 mg/dL (8.4-10.2) 02/27/21 07:32 Magnesium 1.80 mg/dL (1.7-2.3) 02/21/21 23:50 Total Bilirubin 0.20 mg/dL (0.1-1.2) 02/27/21 07:32 AST 11 units/L (5-40) 02/27/21 07:32 ALT 16 units/L (7-56) 02/27/21 07:32 Alkaline Phosphatase 61 units/L (35-129) 02/27/21 07:32 Total Creatine Kinase 17 units/L (30-135) L 02/21/21 23:50 CK-MB (CK-2) 2.9 ng/mL (0.0-4.0) 02/21/21 23:50 CK-MB (CK-2) Rel Index 17.0 (0-4) H 02/21/21 23:50 Troponin T 0.035 ng/mL (0.00-0.029) H D 02/24/21 07:58 C-Reactive Protein 1.60 mg/dL (0.00-1.30) H 02/25/21 05:00 Total Protein 4.6 g/dL (6.3-8.2) L 02/27/21 07:32 Albumin 2.5 g/dL (3.9-5) L 02/27/21 07:32 Albumin/Globulin Ratio 1.2 % 02/27/21 07:32 Triglycerides 93 mg/dL (2-149) 02/21/21 23:50 Cholesterol 161 mg/dL (50-199) 02/21/21 23:50 LDL Cholesterol Direct 100 mg/dL (50-130) 02/21/21 23:50 HDL Cholesterol 46 mg/dL (40-59) 02/21/21 23:50 Cholesterol/HDL Ratio 3.50 % 02/21/21 23:50 Lipase 24 units/L (13-60) 02/21/21 23:50 Procalcitonin 3.55 ng/mL (<0.15) 02/23/21 08:01 Coronavirus (PCR) Positive (Negative) A 02/23/21 Unknown Monk/IV: Voiding Method External Female Catheter Active Medications - Current Medications Current Medications: Generic Name Dose Route Start Last Admin Trade Name Freq PRN Reason Stop Dose Admin Acetaminophen 650 mg 02/22/21 02:24 02/27/21 18:11 Acetaminophen 325 Mg Tab PO 650 mg Q4H PRN Administration Pain MILD(1-3)/Fever >100.5/SALAZAR Albuterol 2.5 mg 02/24/21 17:28 Albuterol 2.5 Mg/3 Ml Nebu IH Q4HRT PRN Shortness Of Breath Albuterol 2 puff 02/25/21 22:00 Albuterol 8.5 Gm Mdi Inhalation IH Q4HRT PRN Shortness Of Breath Apixaban 5 mg 02/25/21 11:00 02/27/21 22:01 Apixaban 5 Mg Tab PO 5 mg Q12HR GIA Administration Protocol Atorvastatin Calcium 40 mg 02/22/21 22:00 02/27/21 22:01 Atorvastatin 40 Mg Tab PO 40 mg QHS GIA Administration Dexamethasone 6 mg 02/22/21 10:00 02/27/21 10:07 Dexamethasone 4 Mg/Ml Vial IV 03/02/21 10:01 6 mg DAILY GIA Administration Famotidine 20 mg 02/22/21 10:00 02/27/21 22:01 Famotidine 20 Mg Tab PO 20 mg BID GIA Administration Hydromorphone HCl 0.5 mg 02/22/21 02:24 Hydromorphone 1 Mg/1 Ml Inj IV Q3H PRN Pain , Severe (7-10) REMDESIVIR 100 mg/ Sodium 250 mls @ 500 mls/hr 02/25/21 21:00 02/27/21 22:00 Chloride IV 02/28/21 21:29 500 mls/hr Q24HR@2100 GIA Administration Ibuprofen 800 mg 02/25/21 14:00 Ibuprofen 800 Mg Tab PO Q8HR PRN Pain, Moderate (4-6) Meclizine HCl 25 mg 02/24/21 10:18 Meclizine 25 Mg Tab PO Q8H PRN Vertigo Morphine Sulfate 2 mg 02/22/21 02:24 Morphine 2 Mg/1 Ml Inj IV Q4H PRN Pain, Moderate (4-6) Ondansetron HCl 4 mg 02/22/21 02:24 Ondansetron 4 Mg/2 Ml Inj IV Q8H PRN Nausea And Vomiting Sodium Chloride 10 ml 02/22/21 10:00 02/27/21 22:01 Sodium Chloride 0.9% 10 Ml Flush Syringe IV 10 ml BID GIA Administration Sodium Chloride 10 ml 02/22/21 02:24 Sodium Chloride 0.9% 10 Ml Flush Syringe IV PRN PRN LINE FLUSH Sodium Chloride 50 ml 02/24/21 10:00 02/27/21 22:00 Sodium Chloride 0.9% 50 Ml Ivpb IV 02/28/21 21:01 50 ml Q24HR@2100 GIA Administration Nutrition/Malnutrition Assess - Dietary Evaluation Nutrition/Malnutrition Findings: Nutrition Notes Start: 02/24/21 11 :50 Freq: Status: Active Protocol: Document 02/24/21 11:50 ADONIS (Rec: 02/24/21 12:16 ADONIS [id number]) Nutrition Notes 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 Current Diet Cardiac Diet (B 02/22). Labs/Tests 02/24: Crea 0.3, Glu 105, Troponin T 0.035. Pertinent Medications 02/24: Nutritionally unremarkable. Height 5 ft 4 in Weight 76.657 kg [place] Body Weight (kg) 54.54 BMI 29.0 Intake Prior to Admission Good Weight change and time frame Pt states having loss weight recently without trying. Weight Status Overweight Subjective/Other Information RD consult for skin risk assessment. Pt shows no signs of concern for skin risk at the time, other than hemorroids, according to physical Assessment History notes. No available information regarding %PO intake of meals at the time. Percent of energy/protein needs met: Prescribed Cardiac Diet provides for energy/protein needs (2,230 Kcal/85 g) during LOS. Burn Absent Trauma Absent GI Symptoms Diarrhea Food Allergy No Skin Integrity/Comment Banded Hemorroid. Minimum of two criteria No Is patient on ventilator? No Is Patient Ambulatory and/or Out of Bed Yes REE-([place]-St. Jeor-ambulatory/OOB) [ 1698.541 [id number]] Calculation Used for Recommendations [place]-St Jeor Additional Notes Protein: 0.8-1 g/Kg; 62-77 g/ day. Fluids: 1 ml/Kcal, or as per MD. Nutrition Intervention Change Diet Order: Continue Cardiac Diet. Follow-Up By: 03/03/21 Additional Comments Continue monitoring food tolerance, %PO intake of meals , and BM.
[2021-02-28] MEDS: APIXABAN 5 MG TAB PO SCH (10:41)
[2021-02-28] MEDS: FAMOTIDINE 20 MG TAB PO SCH ×2 (10:41→22:11)
[2021-02-28] MEDS: dexAMETHasone 4 MG/ML VIAL IV SCH (10:41)
--- NOTE | 2021-02-28 11:36 | Progress Note ---
Assessment and Plan Pt is a 65-year-old female with a hx of bilateral PE (dx 01/17/2021) who was unable to tolerate anticoagulation in the setting of hemorrhagic shock secondary to rectal bleeding (for which she was hospitalized at [facility] starting 01/17/2021). Pt eventually had an IVC filter placed on 01/21/2021. Who is admitted for complaints of dizziness and SOB x 2 days prior to admission COVID-19- ID following Acute Respiratory failure-pulmonology follow Bilateral PE NSTEMI type 2 Dizziness Bilateral lower extremity DVTs IVC filter Anemia H/o GI bleed Echocardiogram 02/23/2021: LVEF 55 to 60%. LV SF normal. Flattened septum consistent with right ventricular volume and pressure overload. Mild diastolic dysfunction. RV mildly dilated. Mild TR. RVSP 33 mmHg Plan: Will continue anticoagulation with Eliquis due to bilateral PEs and bilateral DVTs with close monitoring for signs of bleeding hg is stable anticpated procedure on tuesday Continue present management Subjective Date of service: 02/28/21 Principal diagnosis: Acute Respiratory Failure, COVID-19, Interval history: sob is better but did not get out bed for dizziness Objective Vital Signs Temp Pulse Resp BP Pulse Ox 02/28/21 09:45 97 02/28/21 06:11 98.2 F 83 18 142/80 96 02/28/21 00:38 95 02/28/21 00:15 98.4 F 89 18 129/84 96 02/27/21 23:08 98 02/27/21 15:46 98.5 F 89 20 121/70 94 02/27/21 13:00 95 02/27/21 12:43 98.0 F 81 18 115/75 95 - Physical Examination General: Appears Well HEENT: Positive: EOMI, Normocephaly Neck: Positive: neck supple, trachea midline Cardiac: Positive: Reg Rate and Rhythm Lungs: Positive: clear to auscultation Neuro: Positive: Grossly Intact Abdomen: Positive: Soft. Negative: Tender Skin: Negative: Rash Musculoskeletal: No Fluid Collection, No Pain, Normal Range of Motion Extremities: Present: lower extr. pulses. Absent: edema - Labs and Meds CBC 02/28/21 Range/Units 05:16 Hgb 8.6 L (10.1-14.3) gm/dl Hct 27.8 L (30.3-42.9) % Plt Count 331 (140-440) K/mm3 Comprehensive Metabolic Panel 02/28/21 Range/Units 05:16 Creatinine 0.4 L (0.6-1.2) mg/dL - Imaging and Cardiology EKG: report reviewed, image reviewed Echo: report reviewed (Echocardiogram 02/23/2021: LVEF 55 to 60%. LV SF normal. Flattened septum consistent with right ventricular volume and pressure overload. Mild diastolic dysfunction. RV mildly dilated. Mild TR. RVSP 33 mmHg.) - EKG Sinus rhythms and dysrhythmias: sinus rhythm Ventricular dysrhythmias: ventricular premature com
[2021-02-28] MEDS ORDERED: HEPARIN 10,000 UNITS/10 ML VIAL IV PRN (15:01)
--- NOTE | 2021-02-28 15:01 | Event Note ---
Date: 02/28/21 Discussed procedure with the patient. Discussed in detail the risk, benefits, and alternatives. I answered all questions. The patient expressed understanding and agrees to proceed. I will convert her to a Heparin gtt and stop Eliquis. Plan for Cathlab on Tuesday.
[2021-02-28] MEDS: HEPARIN/ 0.45% NACL DRIP 25,000 UNIT/500 ML BAG IV SCH (15:50)
[2021-02-28 19:06] LABS: INR 1.62 (0.87-1.13)
[2021-02-28 19:16] LABS: Partial Thromboplastin Time 64.2 Sec. (24.2-36.6)
[2021-02-28] MEDS: REMDESIVIR 100 MG in SODIUM CHLORIDE 0.9% 250ML 250 ML IV SCH (22:11)
[2021-02-28] MEDS: SODIUM CHLORIDE 0.9% 50 ML IVPB IV SCH (22:14)
--- NOTE | 2021-03-01 09:06 | Progress Note ---
Assessment and Plan Assessment and plan: 65-year-old female past medical history of pulmonary embolism, previous tobacco abuse presented to hospital complaining of shortness of breath. This began 2 days prior to admission and has been worsening. She was admitted as Covid PUI. Covid PCR found to be positive on 02/23/2021. Acute hypoxic respiratory failure Bilateral PE Bilateral LE DVT Mild pulmonary hypertension COVID-19 pneumonia Elevated troponin Dizziness/vertigo History of rectal bleeding History of IVC filter Hospital course: 02/22/2021: Patient primary complaint is shortnes of breath and dizziness. orthostatic vitals, echo, mri, neuro consult ordered. Has a history of pulmonary embolism but cannot anticoagulate d/t prior hx of hemorrahagic shock from rectal bleed. Elevated troponin/CKMB noted. Suspect PE related but will follow cardiology recommendations. Doubt cardiac etiology. 02/23/2021: Orthostatic vitals not obtained. D/w RN this AM to obtain. COVID positive. ID consultation placed, recs noted. MRI negative for acute findings. Will place PT order due to patient weakness. 02/24/2021. Patient still complains of shortness of breath and dizziness. Dizziness may be related to vertigo. We will start meclizine 25 mg 3 times daily. Patient has a history of pulmonary embolism/DVT but unable to anticoagulate due to prior history of hemorrhagic shock from rectal bleed. Patient currently requiring 10 L O2. We will continue to wean oxygen as tolerated. Covid PCR positive on 02/23/2021. We will start remdesivir for total of 5 doses. ID following. Follow-up procalcitonin levels to determine need for antibiotics 02/25/2021. Patient requiring 15 L O2. Continue to wean oxygen as tolerated. Continue dexamethasone and remdesivir. Follow-up procalcitonin level. Continue antibiotics until procalcitonin resulted. Echocardiogram from 02/23/2021 reveals LVEF 55-60% with flattened septum consistent with right ventricular pressure and volume overload. Mild diastolic dysfunction. Right ventricle mildly dilated. Mild TR. RVSP 33 mmHg. Continue meclizine for probable vertigo. 02/26/2021. Cardiology has decided to restart anticoagulation given the COVID status, bilateral PEs contributing to poor respiratory status. Eliquis 5 mg twice daily initiated yesterday. Dopplers illustrate bilateral lower extremity DVT. Pulmonary and ID also following. Patient's oxygen has been weaned to 5 L which she is currently tolerating. Continue steroids and remdesivir. Prone positioning as able. 02/27/2021. CTA of chest revealed multiple PEs to include PE in the left main pulmonary artery. There is also flattening of the interventricular septum suggesting right heart strain. Continue anticoagulation with Eliquis. Patient is s/p IVC filter placement. Vascular following. Await determinations for potential thrombolytics. Await GI consultation for risk stratification. Cont inue prone positioning as able. Continue steroids. Patient currently on 5 L per nasal cannula. Patient still reports significant dyspnea with exertion. 02/28/2021. The patient reports some scant bleeding per nurses aide when she was cleaned this morning. I discussed with nursing who reports no active bleeding at present. Patient has had no further episodes of any bleeding. Continue anticoagulation and monitor very closely. As previously reported, patient with prior hx of hemorrahagic shock from rectal bleed. We will check Hemoccult of stool. If the patient truly does have bleeding, GI recommends stopping anticoagulation and starting high-dose steroids at 40 mg of Solu-Medrol per day. Patient still requiring 5 L with FiO2 of 40% via nasal cannula. Continue prone positioning as able. 03/01/2021. Patient with no signs of bleeding yesterday or this morning. Vascular surgery to perform percutaneous mechanical thrombectomy in the a.m. if remains stable. Eliquis converted to heparin drip. Continue to monitor closely. Patient's oxygen has been decreased to 4 L via nasal cannula with saturations at 98%. Continue prone positioning as able. History Interval history: No new issues Hospitalist Physical - Constitutional Vitals: Temp Pulse Resp BP Pulse Ox 98.0 F 75 18 141/72 97 03/01/21 04:55 03/01/21 04:55 03/01/21 04:55 03/01/21 04:55 03/01/21 07:33 General appearance: Present: no acute distress - EENT Eyes: Present: PERRL, EOM intact ENT: hearing intact, clear oral mucosa, dentition normal - Neck Neck: Present: supple, normal ROM - Respiratory Respiratory effort: normal Respiratory: bilateral: CTA - Cardiovascular Rhythm: regular Heart Sounds: Present: S1 & S2. Absent: gallop, rub - Extremities Extremities: no ischemia, No edema, Full ROM - Abdominal General gastrointestinal: soft, non-tender, non-distended, normal bowel sounds - Integumentary Integumentary: Present: clear, warm, dry - Neurologic Neurologic: CNII-XII intact, moves all extremities HEART Score - HEART Score Troponin: Troponin T 0.035 ng/mL (0.00-0.029) H D 02/24/21 07:58 Results - Labs CBC & Chem 7: 02/28/21 05:16 02/28/21 05:16 Labs: Laboratory Last Values WBC 8.7 K/mm3 (4.5-11.0) 02/27/21 07:32 RBC 2.75 M/mm3 (3.65-5.03) L 02/27/21 07:32 Hgb 8.6 gm/dl (10.1-14.3) L 02/28/21 05:16 Hct 27.8 % (30.3-42.9) L 02/28/21 05:16 MCV 97 fl (79-97) 02/27/21 07:32 MCH 31 pg (28-32) 02/27/21 07:32 MCHC 32 % (30-34) 02/27/21 07:32 RDW 19.7 % (13.2-15.2) H 02/27/21 07:32 Plt Count 331 K/mm3 (140-440) 02/28/21 05:16 Lymph % (Auto) 10.7 % (13.4-35.0) L 02/23/21 08:01 [place] % (Auto) 5.0 % (0.0-7.3) 02/23/21 08:01 Eos % (Auto) 0.0 % (0.0-4.3) 02/23/21 08:01 Baso % (Auto) 0.1 % (0.0-1.8) 02/23/21 08:01 Lymph # (Auto) 1.2 K/mm3 (1.2-5.4) 02/23/21 08:01 [place] # (Auto) 0.6 K/mm3 (0.0-0.8) 02/23/21 08:01 Eos # (Auto) 0.0 K/mm3 (0.0-0.4) 02/23/21 08:01 Baso # (Auto) 0.0 K/mm3 (0.0-0.1) 02/23/21 08:01 Add Manual Diff Complete 02/26/21 05:35 Total Counted 100 02/26/21 05:35 Seg Neutrophils % 84.2 % (40.0-70.0) H 02/23/21 08:01 Seg Neuts % (Manual) 91.0 % (40.0-70.0) H 02/26/21 05:35 Band Neutrophils % 0 % 02/26/21 05:35 Lymphocytes % (Manual) 6.0 % (13.4-35.0) L 02/26/21 05:35 Reactive Lymphs % (Man) 0 % 02/26/21 05:35 Monocytes % (Manual) 3.0 % (0.0-7.3) 02/26/21 05:35 Eosinophils % (Manual) 0 % (0.0-4.3) 02/26/21 05:35 Basophils % (Manual) 0 % (0.0-1.8) 02/26/21 05:35 Metamyelocytes % 0 % 02/26/21 05:35 Myelocytes % 0 % 02/26/21 05:35 Promyelocytes % 0 % 02/26/21 05:35 Blast Cells % 0 % 02/26/21 05:35 Nucleated RBC % Not Reportable 02/26/21 05:35 Seg Neutrophils # 9.4 K/mm3 (1.8-7.7) H 02/23/21 08:01 Seg Neutrophils # Man 11.0 K/mm3 (1.8-7.7) H 02/26/21 05:35 Band Neutrophils # 0.0 K/mm3 02/26/21 05:35 Lymphocytes # (Manual) 0.7 K/mm3 (1.2-5.4) L 02/26/21 05:35 Abs React Lymphs (Man) 0.0 K/mm3 02/26/21 05:35 Monocytes # (Manual) 0.4 K/mm3 (0.0-0.8) 02/26/21 05:35 Eosinophils # (Manual) 0.0 K/mm3 (0.0-0.4) 02/26/21 05:35 Basophils # (Manual) 0.0 K/mm3 (0.0-0.1) 02/26/21 05:35 Metamyelocytes # 0.0 K/mm3 02/26/21 05:35 Myelocytes # 0.0 K/mm3 02/26/21 05:35 Promyelocytes # 0.0 K/mm3 02/26/21 05:35 Blast Cells # 0.0 K/mm3 02/26/21 05:35 WBC Morphology Not Reportable 02/26/21 05:35 Hypersegmented Neuts Not Reportable 02/26/21 05:35 Hyposegmented Neuts Not Reportable 02/26/21 05:35 Hypogranular Neuts Not Reportable 02/26/21 05:35 Smudge Cells Not Reportable 02/26/21 05:35 Toxic Granulation Not Reportable 02/26/21 05:35 Toxic Vacuolation Not Reportable 02/26/21 05:35 Dohle Bodies Not Reportable 02/26/21 05:35 Pelger-Huet Anomaly Not Reportable 02/26/21 05:35 Lisandro Rods Not Reportable 02/26/21 05:35 Platelet Estimate Consistent w auto 02/26/21 05:35 Clumped Platelets Not Reportable 02/26/21 05:35 Plt Clumps, EDTA Not Reportable 02/26/21 05:35 Large Platelets Few 02/26/21 05:35 Giant Platelets Not Reportable 02/26/21 05:35 Platelet Satelliting Not Reportable 02/26/21 05:35 Plt Morphology Comment Not Reportable 02/26/21 05:35 RBC Morphology Not Reportable 02/26/21 05:35 Dimorphic RBCs Not Reportable 02/26/21 05:35 Polychromasia 1+ 02/26/21 05:35 Hypochromasia Not Reportable 02/26/21 05:35 Poikilocytosis Not Reportable 02/26/21 05:35 Anisocytosis 1+ 02/26/21 05:35 Microcytosis Not Reportable 02/26/21 05:35 Macrocytosis Not Reportable 02/26/21 05:35 Spherocytes Not Reportable 02/26/21 05:35 Pappenheimer Bodies Not Reportable 02/26/21 05:35 Sickle Cells Not Reportable 02/26/21 05:35 Target Cells Not Reportable 02/26/21 05:35 Tear Drop Cells Not Reportable 02/26/21 05:35 Ovalocytes Not Reportable 02/26/21 05:35 Helmet Cells Not Reportable 02/26/21 05:35 [place] Bodies Not Reportable 02/26/21 05:35 [place] Rings Not Reportable 02/26/21 05:35 [place] Cells Not Reportable 02/26/21 05:35 Bite Cells Not Reportable 02/26/21 05:35 Crenated Cell Not Reportable 02/26/21 05:35 Elliptocytes Not Reportable 02/26/21 05:35 Acanthocytes (Spur) Not Reportable 02/26/21 05:35 Rouleaux Not Reportable 02/26/21 05:35 Hemoglobin C Crystals Not Reportable 02/26/21 05:35 Schistocytes 1+ 02/26/21 05:35 Malaria parasites Not Reportable 02/26/21 05:35 [place] Bodies Not Reportable 02/26/21 05:35 Hem Pathologist Commnt No 02/26/21 05:35 PT 20.8 Sec. (12.2-14.9) H 02/28/21 18:30 INR 1.62 (0.87-1.13) H 02/28/21 18:30 APTT 64.2 Sec. (24.2-36.6) H* 02/28/21 18:30 D-Dimer 2905.38 ng/mlDDU (0-234) H 02/25/21 05:00 Heparin Anti-Xa Level 1.82 U.I./ml (0.3-0.7) H 02/28/21 22:56 Sodium 143 mmol/L (137-145) 02/27/21 07:32 Potassium 3.8 mmol/L (3.6-5.0) 02/27/21 07:32 Chloride 107.9 mmol/L (98-107) H 02/27/21 07:32 Carbon Dioxide 23 mmol/L (22-30) 02/27/21 07:32 Anion Gap 16 mmol/L 02/27/21 07:32 BUN 12 mg/dL (7-17) 02/27/21 07:32 Creatinine 0.4 mg/dL (0.6-1.2) L 02/28/21 05:16 Estimated GFR > 60 ml/min 02/28/21 05:16 BUN/Creatinine Ratio 30 % 02/27/21 07:32 Glucose 110 mg/dL (65-100) H 02/27/21 07:32 Lactic Acid 1.50 mmol/L (0.7-2.0) 02/22/21 16:16 Calcium 8.8 mg/dL (8.4-10.2) 02/27/21 07:32 Magnesium 1.80 mg/dL (1.7-2.3) 02/21/21 23:50 Total Bilirubin 0.20 mg/dL (0.1-1.2) 02/27/21 07:32 AST 11 units/L (5-40) 02/27/21 07:32 ALT 16 units/L (7-56) 02/27/21 07:32 Alkaline Phosphatase 61 units/L (35-129) 02/27/21 07:32 Total Creatine Kinase 17 units/L (30-135) L 02/21/21 23:50 CK-MB (CK-2) 2.9 ng/mL (0.0-4.0) 02/21/21 23:50 CK-MB (CK-2) Rel Index 17.0 (0-4) H 02/21/21 23:50 Troponin T 0.035 ng/mL (0.00-0.029) H D 02/24/21 07:58 C-Reactive Protein 1.60 mg/dL (0.00-1.30) H 02/25/21 05:00 Total Protein 4.6 g/dL (6.3-8.2) L 02/27/21 07:32 Albumin 2.5 g/dL (3.9-5) L 02/27/21 07:32 Albumin/Globulin Ratio 1.2 % 02/27/21 07:32 Triglycerides 93 mg/dL (2-149) 02/21/21 23:50 Cholesterol 161 mg/dL (50-199) 02/21/21 23:50 LDL Cholesterol Direct 100 mg/dL (50-130) 02/21/21 23:50 HDL Cholesterol 46 mg/dL (40-59) 02/21/21 23:50 Cholesterol/HDL Ratio 3.50 % 02/21/21 23:50 Lipase 24 units/L (13-60) 02/21/21 23:50 Procalcitonin 3.55 ng/mL (<0.15) 02/23/21 08:01 Coronavirus (PCR) Positive (Negative) A 02/23/21 Unknown Monk/IV: Voiding Method External Female Catheter Active Medications - Current Medications Current Medications: Generic Name Dose Route Start Last Admin Trade Name Freq PRN Reason Stop Dose Admin Acetaminophen 650 mg 02/22/21 02:24 02/27/21 18:11 Acetaminophen 325 Mg Tab PO 650 mg Q4H PRN Administration Pain MILD(1-3)/Fever >100.5/SALAZAR Albuterol 2.5 mg 02/24/21 17:28 Albuterol 2.5 Mg/3 Ml Nebu IH Q4HRT PRN Shortness Of Breath Albuterol 2 puff 02/25/21 22:00 Albuterol 8.5 Gm Mdi Inhalation IH Q4HRT PRN Shortness Of Breath Atorvastatin Calcium 40 mg 02/22/21 22:00 02/28/21 22:10 Atorvastatin 40 Mg Tab PO 40 mg QHS GIA Administration Dexamethasone 6 mg 02/22/21 10:00 02/28/21 10:41 Dexamethasone 4 Mg/Ml Vial IV 03/02/21 10:01 6 mg DAILY GIA Administration Famotidine 20 mg 02/22/21 10:00 02/28/21 22:11 Famotidine 20 Mg Tab PO 20 mg BID GIA Administration Heparin Sodium (Porcine) 3,100 unit 02/28/21 15:01 Heparin 10,000 Units/10 Ml Vial 40 unit/kg (3100 unit) IV Q6H PRN Anti-Xa Assay < 0.1 units/ml Hydromorphone HCl 0.5 mg 02/22/21 02:24 Hydromorphone 1 Mg/1 Ml Inj IV Q3H PRN Pain , Severe (7-10) Heparin Sodium/Sodium Chloride 25,000 unit in 500 mls @ 23 mls/hr 02/28/21 16:00 03/01/21 04:12 Heparin/ 0.45% Nacl-25,000 Unit/500 Ml IV 1,050 units/hr TITR GIA 21 mls/hr Titration Protocol 1,150 UNITS/HR Ibuprofen 800 mg 02/25/21 14:00 Ibuprofen 800 Mg Tab PO Q8HR PRN Pain, Moderate (4-6) Meclizine HCl 25 mg 02/24/21 10:18 Meclizine 25 Mg Tab PO Q8H PRN Vertigo Morphine Sulfate 2 mg 02/22/21 02:24 Morphine 2 Mg/1 Ml Inj IV Q4H PRN Pain, Moderate (4-6) Ondansetron HCl 4 mg 02/22/21 02:24 Ondansetron 4 Mg/2 Ml Inj IV Q8H PRN Nausea And Vomiting Sodium Chloride 10 ml 02/22/21 10:00 02/28/21 22:12 Sodium Chloride 0.9% 10 Ml Flush Syringe IV 10 ml BID GIA Administration Sodium Chloride 10 ml 02/22/21 02:24 Sodium Chloride 0.9% 10 Ml Flush Syringe IV PRN PRN LINE FLUSH Nutrition/Malnutrition Assess - Dietary Evaluation Nutrition/Malnutrition Findings: Nutrition Notes Start: 02/24/21 11:50 Freq: Status: Active Protocol: Document 02/24/21 11:50 ADONIS (Rec: 02/24/21 12:16 ADONIS [id number]) Nutrition Notes Need for Assessment generated from: smocker Initial or Follow up Assessment Current Diagnosis Respiratory Failure Other Pertinent Diagnosis SOB, COVID-19 PUI, Hemorroids. Current Diet Cardiac Diet (B 02/22). Labs/Tests 02/24: Crea 0.3, Glu 105, Troponin T 0.035. Pertinent Medications 02/24: Nutritionally unremarkable. Height 5 ft 4 in Weight 76.657 kg [place] Body Weight (kg) 54.54 BMI 29.0 Intake Prior to Admission Good Weight change and time frame Pt states having loss weight recently without trying. Weight Status Overweight Subjective/Other Information RD consult for skin risk assessment. Pt shows no signs of concern for skin risk at the time, other than hemorroids, according to physical Assessment History notes. No available information regarding %PO intake of meals at the time. Percent of energy/protein needs met: Prescribed Cardiac Diet provides for energy/protein needs (2,230 Kcal/85 g) during LOS. Burn Absent Trauma Absent GI Symptoms Diarrhea Food Allergy No Skin Integrity/Comment Banded Hemorroid. Minimum of two criteria No Is patient on ventilator? No Is Patient Ambulatory and/or Out of Bed Yes REE-(Platina-St. Jeor-ambulatory/OOB) [ 1698.541 [id number]] Calculation Used for Recommendations Plat[place]-St Jeor Additional Notes Protein: 0.8-1 g/Kg; 62-77 g/ day. Fluids: 1 ml/Kcal, or as per MD. Nutrition Intervention Change Diet Order: Continue Cardiac Diet. Follow-Up By: 03/03/21 Additional Comments Continue monitoring food tolerance, %PO intake of meals , and BM.
--- NOTE | 2021-03-01 09:22 | Progress Note ---
Assessment and Plan - Patient Problems (1) Acute hypoxemic respiratory failure due to COVID-19 Current Visit: Yes Status: Acute (2) Acute respiratory failure Current Visit: Yes Status: Acute (3) Pulmonary embolism Current Visit: Yes Status: Acute (4) SOB (shortness of breath) Current Visit: Yes Status: Acute (5) Bilateral pulmonary embolism Current Visit: Yes Status: Chronic (6) History of rectal bleeding Current Visit: Yes Status: Chronic Subjective Principal diagnosis: Acute Respiratory Failure, COVID-19, Interval history: frequent BM vaginal bleeding Objective Vital Signs - 12hr 02/28/21 02/28/21 03/01/21 22:02 22:10 00:00 Temperature 98.0 F Pulse Rate 85 Respiratory 18 Rate Blood Pressure 130/74 O2 Sat by Pulse 97 98 96 Oximetry 03/01/21 03/01/21 04:55 07:33 Temperature 98.0 F Pulse Rate 75 Respiratory 18 Rate Blood Pressure 141/72 O2 Sat by Pulse 97 97 Oximetry Constitutional: no acute distress Eyes: non-icteric ENT: oropharynx moist Neck: supple Ascultation: Bilateral: diminished breath sounds Cardiovascular: regular rate and rhythm Gastrointestinal: normoactive bowel sounds, soft, non-tender, non-distended Extremities: no cyanosis CBC and BMP: 02/28/21 05:16 02/28/21 05:16 ABG, PT/INR, D-dimer: PT/INR, D-dimer PT 20.8 Sec. (12.2-14.9) H 02/28/21 18:30 INR 1.62 (0.87-1.13) H 02/28/21 18:30 D-Dimer 2905.38 ng/mlDDU (0-234) H 02/25/21 05:00 Abnormal lab findings: Abnormal Labs 02/21/21 02/21/21 02/22/21 23:50 23:50 01:14 WBC RBC 2.91 L Hgb 9.1 L Hct 29.7 L MCV 102 H RDW 20.5 H Lymph % (Auto) Seg Neutrophils % Seg Neuts % (Manual) 81.0 H Lymphocytes % (Manual) 4.0 L Nucleated RBC % 1.0 H Seg Neutrophils # Seg Neutrophils # Man 8.7 H Lymphocytes # (Manual) 0.4 L PT INR APTT D-Dimer Heparin Anti-Xa Level Chloride Carbon Dioxide 20 L Creatinine Glucose 198 H Lactic Acid 2.10 H* Calcium 8.2 L Total Creatine Kinase 17 L CK-MB (CK-2) Rel Index 17.0 H Troponin T 0.104 H* C-Reactive Protein Total Protein 5.3 L Albumin 2.7 L Coronavirus (PCR) 02/22/21 02/22/21 02/23/21 16:16 16:16 00:58 WBC RBC Hgb 9.0 L Hct MCV RDW Lymph % (Auto) Seg Neutrophils % Seg Neuts % (Manual) Lymphocytes % (Manual) Nucleated RBC % Seg Neutrophils # Seg Neutrophils # Man Lymphocytes # (Manual) PT INR APTT D-Dimer Heparin Anti-Xa Level Chloride Carbon Dioxide Creatinine Glucose Lactic Acid Calcium Total Creatine Kinase CK-MB (CK-2) Rel Index Troponin T 0.062 H D 0.060 H C-Reactive Protein Total Protein Albumin Coronavirus (PCR) 02/23/21 02/23/21 02/23/21 08:01 08:01 Unknown WBC 11.1 H RBC 3.09 L Hgb 9.6 L Hct MCV 101 H RDW 20.2 H Lymph % (Auto) 10.7 L Seg Neutrophils % 84.2 H Seg Neuts % (Manual) Lymphocytes % (Manual) Nucleated RBC % Seg Neutrophils # 9.4 H Seg Neutrophils # Man Lymphocytes # (Manual) PT INR APTT D-Dimer Heparin Anti-Xa Level Chloride Carbon Dioxide Creatinine 0.3 L Glucose 118 H Lactic Acid Calcium Total Creatine Kinase CK-MB (CK-2) Rel Index Troponin T C-Reactive Protein Total Protein Albumin Coronavirus (PCR) Positive A 02/24/21 02/24/21 02/25/21 07:58 07:58 05:00 WBC RBC Hgb 9.0 L Hct MCV RDW Lymph % (Auto) Seg Neutrophils % Seg Neuts % (Manual) Lymphocytes % (Manual) Nucleated RBC % Seg Neutrophils # Seg Neutrophils # Man Lymphocytes # (Manual) PT INR APTT D-Dimer Heparin Anti-Xa Level Chloride 107.2 H Carbon Dioxide Creatinine 0.3 L 0.4 L Glucose 105 H 128 H Lactic Acid Calcium Total Creatine Kinase CK-MB (CK-2) Rel Index Troponin T 0.035 H D C-Reactive Protein 1.60 H Total Protein 4.9 L Albumin 2.7 L Coronavirus (PCR) 0102/25/21 02/25/21 05:00 16:51 16:51 WBC RBC 2.80 L Hgb 8.7 L Hct 28.2 L MCV 101 H RDW 20.2 H Lymph % (Auto) Seg Neutrophils % Seg Neuts % (Manual) Lymphocytes % (Manual) Nucleated RBC % Seg Neutrophils # Seg Neutrophils # Man Lymphocytes # (Manual) PT 18.1 H INR 1.36 H APTT D-Dimer 2905.38 H Heparin Anti-Xa Level Chloride Carbon Dioxide Creatinine Glucose Lactic Acid Calcium Total Creatine Kinase CK-MB (CK-2) Rel Index Troponin T C-Reactive Protein Total Protein Albumin Coronavirus (PCR) 02/25/21 02/26/21 02/26/21 16:51 05:35 05:35 WBC 12.1 H RBC 2.73 L Hgb 8.3 L Hct 26.8 L MCV 98 H RDW 20.0 H Lymph % (Auto) Seg Neutrophils % Seg Neuts % (Manual) 91.0 H Lymphocytes % (Manual) 6.0 L Nucleated RBC % Seg Neutrophils # Seg Neutrophils # Man 11.0 H Lymphocytes # (Manual) 0.7 L PT INR APTT D-Dimer Heparin Anti-Xa Level Chloride 108.0 H Carbon Dioxide Creatinine 0.5 L 0.4 L Glucose 127 H Lactic Acid Calcium Total Creatine Kinase CK-MB (CK-2) Rel Index Troponin T C-Reactive Protein Total Protein 4.9 L Albumin 2.8 L Coronavirus (PCR) 02/27/21 02/27/21 02/28/21 07:32 07:32 05:16 WBC RBC 2.75 L Hgb 8.5 L 8.6 L Hct 26.6 L 27.8 L MCV RDW 19.7 H Lymph % (Auto) Seg Neutrophils % Seg Neuts % (Manual) Lymphocytes % (Manual) Nucleated RBC % Seg Neutrophils # Seg Neutrophils # Man Lymphocytes # (Manual) PT INR APTT D-Dimer Heparin Anti-Xa Level Chloride 107.9 H Carbon Dioxide Creatinine 0.4 L Glucose 110 H Lactic Acid Calcium Total Creatine Kinase CK-MB (CK-2) Rel Index Troponin T C-Reactive Protein Total Protein 4.6 L Albumin 2.5 L Coronavirus (PCR) 02/28/21 02/28/21 02/28/21 05:16 18:30 22:56 WBC RBC Hgb Hct MCV RDW Lymph % (Auto) Seg Neutrophils % Seg Neuts % (Manual) Lymphocytes % (Manual) Nucleated RBC % Seg Neutrophils # Seg Neutrophils # Man Lymphocytes # (Manual) PT 20.8 H INR 1.62 H APTT 64.2 H* D-Dimer Heparin Anti-Xa Level 1.82 H Chloride Carbon Dioxide Creatinine 0.4 L Glucose Lactic Acid Calcium Total Creatine Kinase CK-MB (CK-2) Rel Index Troponin T C-Reactive Protein Total Protein Albumin Coronavirus (PCR)
--- NOTE | 2021-03-01 10:33 | Progress Note ---
Assessment and Plan Pt is a 65-year-old female with a hx of bilateral PE (dx 01/17/2021) who was unable to tolerate anticoagulation in the setting of hemorrhagic shock secondary to rectal bleeding (for which she was hospitalized at [facility] starting 01/17/2021). Pt eventually had an IVC filter placed on 01/21/2021. Who is admitted for complaints of dizziness and SOB x 2 days prior to admission COVID-19- ID following Acute Respiratory failure-pulmonology follow Bilateral PE NSTEMI type 2 Dizziness Bilateral lower extremity DVTs IVC filter Anemia H/o GI bleed Echocardiogram 02/23/2021: LVEF 55 to 60%. LV SF normal. Flattened septum consistent with right ventricular volume and pressure overload. Mild diastolic dysfunction. RV mildly dilated. Mild TR. RVSP 33 mmHg Plan: Will continue anticoagulation with Eliquis due to bilateral PEs and bilateral DVTs with close monitoring for signs of bleeding hg is stable anticpated procedure on tuesday , npo after midnight and mild vaginal discharge, waiting on labs today Continue present management Subjective Date of service: 03/01/21 Principal diagnosis: Acute Respiratory Failure, COVID-19, Interval history: sob is stable Objective Vital Signs Temp Pulse Resp BP Pulse Ox 03/01/21 07:33 97 03/01/21 04:55 98.0 F 75 18 141/72 97 03/01/21 00:00 96 02/28/21 22:10 98 02/28/21 22:02 98.0 F 85 18 130/74 97 02/28/21 12:00 96 02/28/21 11:02 86 18 130/72 97 - Physical Examination General: Appears Well HEENT: Positive: EOMI, Normocephaly Neck: Positive: neck supple, trachea midline Cardiac: Positive: Reg Rate and Rhythm Lungs: Positive: clear to auscultation Neuro: Positive: Grossly Intact Abdomen: Positive: Soft. Negative: Tender Skin: Negative: Rash Musculoskeletal: No Fluid Collection, No Pain, Normal Range of Motion Extremities: Present: lower extr. pulses. Absent: edema - Labs and Meds Coagulation 02/28/21 Range/Units 18:30 PT 20.8 H (12.2-14.9) Sec. INR 1.62 H (0.87-1.13) APTT 64.2 H* (24.2-36.6) Sec. - Imaging and Cardiology EKG: report reviewed, image reviewed Echo: report reviewed (Echocardiogram 02/23/2021: LVEF 55 to 60%. LV SF normal. Flattened septum consistent with right ventricular volume and pressure overload. Mild diastolic dysfunction. RV mildly dilated. Mild TR. RVSP 33 mmHg.) - EKG Sinus rhythms and dysrhythmias: sinus rhythm Ventricular dysrhythmias: ventricular premature com
[2021-03-01] MEDS: dexAMETHasone 4 MG/ML VIAL IV SCH (10:36)
[2021-03-01] MEDS: FAMOTIDINE 20 MG TAB PO SCH ×2 (10:36→21:04)
[2021-03-01] MEDS: HEPARIN/ 0.45% NACL DRIP 25,000 UNIT/500 ML BAG IV SCH (18:31)
[2021-03-02 07:37] LABS: Hematocrit 29.9 % (30.3-42.9); Hemoglobin 9.3 gm/dl (10.1-14.3)
[2021-03-02 08:03] LABS: Blood Urea Nitrogen 12 mg/dL (7-17); Calcium 8.5 mg/dL (8.4-10.2); Hemolysis Index 5
[2021-03-02 08:13] LABS: BUN/Creatinine Ratio 40
--- NOTE | 2021-03-02 08:55 | Progress Note ---
Assessment and Plan Assessment and plan: 65-year-old female past medical history of pulmonary embolism, previous tobacco abuse presented to hospital complaining of shortness of breath. This began 2 days prior to admission and has been worsening. She was admitted as Covid PUI. Covid PCR found to be positive on 02/23/2021. Acute hypoxic respiratory failure Bilateral PE Bilateral LE DVT Mild pulmonary hypertension COVID-19 pneumonia Elevated troponin Dizziness/vertigo History of rectal bleeding History of IVC filter Hospital course: 02/22/2021: Patient primary complaint is shortnes of breath and dizziness. orthostatic vitals, echo, mri, neuro consult ordered. Has a history of pulmonary embolism but cannot anticoagulate d/t prior hx of hemorrahagic shock from rectal bleed. Elevated troponin/CKMB noted. Suspect PE related but will follow cardiology recommendations. Doubt cardiac etiology. 02/23/2021: Orthostatic vitals not obtained. D/w RN this AM to obtain. COVID positive. ID consultation placed, recs noted. MRI negative for acute findings. Will place PT order due to patient weakness. 02/24/2021. Patient still complains of shortness of breath and dizziness. Dizziness may be related to vertigo. We will start meclizine 25 mg 3 times daily. Patient has a history of pulmonary embolism/DVT but unable to anticoagulate due to prior history of hemorrhagic shock from rectal bleed. Patient currently requiring 10 L O2. We will continue to wean oxygen as tolerated. Covid PCR positive on 02/23/2021. We will start remdesivir for total of 5 doses. ID following. Follow-up procalcitonin levels to determine need for antibiotics 02/25/2021. Patient requiring 15 L O2. Continue to wean oxygen as tolerated. Continue dexamethasone and remdesivir. Follow-up procalcitonin level. Continue antibiotics until procalcitonin resulted. Echocardiogram from 02/23/2021 reveals LVEF 55-60% with flattened septum consistent with right ventricular pressure and volume overload. Mild diastolic dysfunction. Right ventricle mildly dilated. Mild TR. RVSP 33 mmHg. Continue meclizine for probable vertigo. 02/26/2021. Cardiology has decided to restart anticoagulation given the COVID status, bilateral PEs contributing to poor respiratory status. Eliquis 5 mg twice daily initiated yesterday. Dopplers illustrate bilateral lower extremity DVT. Pulmonary and ID also following. Patient's oxygen has been weaned to 5 L which she is currently tolerating. Continue steroids and remdesivir. Prone positioning as able. 02/27/2021. CTA of chest revealed multiple PEs to include PE in the left main pulmonary artery. There is also flattening of the interventricular septum suggesting right heart strain. Continue anticoagulation with Eliquis. Patient is s/p IVC filter placement. Vascular following. Await determinations for potential thrombolytics. Await GI consultation for risk stratification. Cont inue prone positioning as able. Continue steroids. Patient currently on 5 L per nasal cannula. Patient still reports significant dyspnea with exertion. 02/28/2021. The patient reports some scant bleeding per nurses aide when she was cleaned this morning. I discussed with nursing who reports no active bleeding at present. Patient has had no further episodes of any bleeding. Continue anticoagulation and monitor very closely. As previously reported, patient with prior hx of hemorrahagic shock from rectal bleed. We will check Hemoccult of stool. If the patient truly does have bleeding, GI recommends stopping anticoagulation and starting high-dose steroids at 40 mg of Solu-Medrol per day. Patient still requiring 5 L with FiO2 of 40% via nasal cannula. Continue prone positioning as able. 03/01/2021. Patient with no signs of bleeding yesterday or this morning. Vascular surgery to perform percutaneous mechanical thrombectomy in the a.m. if remains stable. Eliquis converted to heparin drip. Continue to monitor closely. Patient's oxygen has been decreased to 4 L via nasal cannula with saturations at 98%. Continue prone positioning as able. 03/02/2021. Vascular surgery to perform percutaneous mechanical thrombectomy this a.m. continue heparin drip for now. Patient currently with O2 of 4 L via nasal cannula with saturation of 98%. Continue to trend inflammatory markers. Wean O2 as tolerated. Patient to complete dexamethasone tomorrow. History Interval history: No new issues Hospitalist Physical - Constitutional Vitals: Temp Pulse Resp BP Pulse Ox 98.3 F 79 18 132/80 97 03/02/21 06:12 03/02/21 06:12 03/02/21 06:12 03/02/21 06:12 03/02/21 06:12 General appearance: Present: no acute distress - EENT Eyes: Present: PERRL, EOM intact ENT: hearing intact, clear oral mucosa, dentition normal - Neck Neck: Present: supple, normal ROM - Respiratory Respiratory effort: normal Respiratory: bilateral: CTA - Cardiovascular Rhythm: regular Heart Sounds: Present: S1 & S2. Absent: gallop, rub - Extremities Extremities: no ischemia, No edema, Full ROM - Abdominal General gastrointestinal: soft, non-tender, non-distended, normal bowel sounds - Integumentary Integumentary: Present: clear, warm, dry - Neurologic Neurologic: CNII-XII intact, moves all extremities HEART Score - HEART Score Troponin: Troponin T 0.035 ng/mL (0.00-0.029) H D 02/24/21 07:58 Results - Labs CBC & Chem 7: 03/02/21 07:23 03/02/21 07:23 Labs: Laboratory Last Values WBC 8.7 K/mm3 (4.5-11.0) 02/27/21 07:32 RBC 2.75 M/mm3 (3.65-5.03) L 02/27/21 07:32 Hgb 9.3 gm/dl (10.1-14.3) L 03/02/21 07:23 Hct 29.9 % (30.3-42.9) L 03/02/21 07:23 MCV 97 fl (79-97) 02/27/21 07:32 MCH 31 pg (28-32) 02/27/21 07:32 MCHC 32 % (30-34) 02/27/21 07:32 RDW 19.7 % (13.2-15.2) H 02/27/21 07:32 Plt Count 377 K/mm3 (140-440) 03/02/21 07:23 Lymph % (Auto) 10.7 % (13.4-35.0) L 02/23/21 08:01 Warrick % (Auto) 5.0 % (0.0-7.3) 02/23/21 08:01 Eos % (Auto) 0.0 % (0.0-4.3) 02/23/21 08:01 Baso % (Auto) 0.1 % (0.0-1.8) 02/23/21 08:01 Lymph # (Auto) 1.2 K/mm3 (1.2-5.4) 02/23/21 08:01 Warrick # (Auto) 0.6 K/mm3 (0.0-0.8) 02/23/21 08:01 Eos # (Auto) 0.0 K/mm3 (0.0-0.4) 02/23/21 08:01 Baso # (Auto) 0.0 K/mm3 (0.0-0.1) 02/23/21 08:01 Add Manual Diff Complete 02/26/21 05:35 Total Counted 100 02/26/21 05:35 Seg Neutrophils % 84.2 % (40.0-70.0) H 02/23/21 08:01 Seg Neuts % (Manual) 91.0 % (40.0-70.0) H 02/26/21 05:35 Band Neutrophils % 0 % 02/26/21 05:35 Lymphocytes % (Manual) 6.0 % (13.4-35.0) L 02/26/21 05:35 Reactive Lymphs % (Man) 0 % 02/26/21 05:35 Monocytes % (Manual) 3.0 % (0.0-7.3) 02/26/21 05:35 Eosinophils % (Manual) 0 % (0.0-4.3) 02/26/21 05:35 Basophils % (Manual) 0 % (0.0-1.8) 02/26/21 05:35 Metamyelocytes % 0 % 02/26/21 05:35 Myelocytes % 0 % 02/26/21 05:35 Promyelocytes % 0 % 02/26/21 05:35 Blast Cells % 0 % 02/26/21 05:35 Nucleated RBC % Not Reportable 02/26/21 05:35 Seg Neutrophils # 9.4 K/mm3 (1.8-7.7) H 02/23/21 08:01 Seg Neutrophils # Man 11.0 K/mm3 (1.8-7.7) H 02/26/21 05:35 Band Neutrophils # 0.0 K/mm3 02/26/21 05:35 Lymphocytes # (Manual) 0.7 K/mm3 (1.2-5.4) L 02/26/21 05:35 Abs React Lymphs (Man) 0.0 K/mm3 02/26/21 05:35 Monocytes # (Manual) 0.4 K/mm3 (0.0-0.8) 02/26/21 05:35 Eosinophils # (Manual) 0.0 K/mm3 (0.0-0.4) 02/26/21 05:35 Basophils # (Manual) 0.0 K/mm3 (0.0-0.1) 02/26/21 05:35 Metamyelocytes # 0.0 K/mm3 02/26/21 05:35 Myelocytes # 0.0 K/mm3 02/26/21 05:35 Promyelocytes # 0.0 K/mm3 02/26/21 05:35 Blast Cells # 0.0 K/mm3 02/26/21 05:35 WBC Morphology Not Reportable 02/26/21 05:35 Hypersegmented Neuts Not Reportable 02/26/21 05:35 Hyposegmented Neuts Not Reportable 02/26/21 05:35 Hypogranular Neuts Not Reportable 02/26/21 05:35 Smudge Cells Not Reportable 02/26/21 05:35 Toxic Granulation Not Reportable 02/26/21 05:35 Toxic Vacuolation Not Reportable 02/26/21 05:35 Dohle Bodies Not Reportable 02/26/21 05:35 Pelger-Huet Anomaly Not Reportable 02/26/21 05:35 Lisandro Rods Not Reportable 02/26/21 05:35 Platelet Estimate Consistent w auto 02/26/21 05:35 Clumped Platelets Not Reportable 02/26/21 05:35 Plt Clumps, EDTA Not Reportable 02/26/21 05:35 Large Platelets Few 02/26/21 05:35 Giant Platelets Not Reportable 02/26/21 05:35 Platelet Satelliting Not Reportable 02/26/21 05:35 Plt Morphology Comment Not Reportable 02/26/21 05:35 RBC Morphology Not Reportable 02/26/21 05:35 Dimorphic RBCs Not Reportable 02/26/21 05:35 Polychromasia 1+ 02/26/21 05:35 Hypochromasia Not Reportable 02/26/21 05:35 Poikilocytosis Not Reportable 02/26/21 05:35 Anisocytosis 1+ 02/26/21 05:35 Microcytosis Not Reportable 02/26/21 05:35 Macrocytosis Not Reportable 02/26/21 05:35 Spherocytes Not Reportable 02/26/21 05:35 Pappenheimer Bodies Not Reportable 02/26/21 05:35 Sickle Cells Not Reportable 02/26/21 05:35 Target Cells Not Reportable 02/26/21 05:35 Tear Drop Cells Not Reportable 02/26/21 05:35 Ovalocytes Not Reportable 02/26/21 05:35 Helmet Cells Not Reportable 02/26/21 05:35 Steele-Finderne Bodies Not Reportable 02/26/21 05:35 Dante Rings Not Reportable 02/26/21 05:35 [place] Cells Not Reportable 02/26/21 05:35 Bite Cells Not Reportable 02/26/21 05:35 Crenated Cell Not Reportable 02/26/21 05:35 Elliptocytes Not Reportable 02/26/21 05:35 Acanthocytes (Spur) Not Reportable 02/26/21 05:35 Rouleaux Not Reportable 02/26/21 05:35 Hemoglobin C Crystals Not Reportable 02/26/21 05:35 Schistocytes 1+ 02/26/21 05:35 Malaria parasites Not Reportable 02/26/21 05:35 Wilton Bodies Not Reportable 02/26/21 05:35 Hem Pathologist Commnt No 02/26/21 05:35 PT 20.8 Sec. (12.2-14.9) H 02/28/21 18:30 INR 1.62 (0.87-1.13) H 02/28/21 18:30 APTT 64.2 Sec. (24.2-36.6) H* 02/28/21 18:30 D-Dimer 2905.38 ng/mlDDU (0-234) H 02/25/21 05:00 Heparin Anti-Xa Level 0.53 U.I./ml (0.3-0.7) 03/02/21 07:23 Sodium 139 mmol/L (137-145) 03/02/21 07:23 Potassium 3.9 mmol/L (3.6-5.0) 03/02/21 07:23 Chloride 105.7 mmol/L (98-107) 03/02/21 07:23 Carbon Dioxide 22 mmol/L (22-30) 03/02/21 07:23 Anion Gap 15 mmol/L 03/02/21 07:23 BUN 12 mg/dL (7-17) 03/02/21 07:23 Creatinine 0.3 mg/dL (0.6-1.2) L 03/02/21 07:23 Estimated GFR > 60 ml/min 03/02/21 07:23 BUN/Creatinine Ratio 40 % 03/02/21 07:23 Glucose 138 mg/dL (65-100) H 03/02/21 07:23 Lactic Acid 1.50 mmol/L (0.7-2.0) 02/22/21 16:16 Calcium 8.5 mg/dL (8.4-10.2) 03/02/21 07:23 Magnesium 1.80 mg/dL (1.7-2.3) 02/21/21 23:50 Total Bilirubin 0.20 mg/dL (0.1-1.2) 02/27/21 07:32 AST 11 units/L (5-40) 02/27/21 07:32 ALT 16 units/L (7-56) 02/27/21 07:32 Alkaline Phosphatase 61 units/L (35-129) 02/27/21 07:32 Total Creatine Kinase 17 units/L (30-135) L 02/21/21 23:50 CK-MB (CK-2) 2.9 ng/mL (0.0-4.0) 02/21/21 23:50 CK-MB (CK-2) Rel Index 17.0 (0-4) H 02/21/21 23:50 Troponin T 0.035 ng/mL (0.00-0.029) H D 02/24/21 07:58 C-Reactive Protein 1.60 mg/dL (0.00-1.30) H 02/25/21 05:00 Total Protein 4.6 g/dL (6.3-8.2) L 02/27/21 07:32 Albumin 2.5 g/dL (3.9-5) L 02/27/21 07:32 Albumin/Globulin Ratio 1.2 % 02/27/21 07:32 Triglycerides 93 mg/dL (2-149) 02/21/21 23:50 Cholesterol 161 mg/dL (50-199) 02/21/21 23:50 LDL Cholesterol Direct 100 mg/dL (50-130) 02/21/21 23:50 HDL Cholesterol 46 mg/dL (40-59) 02/21/21 23:50 Cholesterol/HDL Ratio 3.50 % 02/21/21 23:50 Lipase 24 units/L (13-60) 02/21/21 23:50 Procalcitonin 3.55 ng/mL (<0.15) 02/23/21 08:01 Coronavirus (PCR) Positive (Negative) A 02/23/21 Unknown Blood Type O POSITIVE 03/02/21 07:10 Antibody Screen Negative 03/02/21 07:10 Monk/IV: Voiding Method External Female Catheter Active Medications - Current Medications Current Medications: Generic Name Dose Route Start Last Admin Trade Name Freq PRN Reason Stop Dose Admin Acetaminophen 650 mg 02/22/21 02:24 02/27/21 18:11 Acetaminophen 325 Mg Tab PO 650 mg Q4H PRN Administration Pain MILD(1-3)/Fever >100.5/SALAZAR Albuterol 2.5 mg 02/24/21 17:28 Albuterol 2.5 Mg/3 Ml Nebu IH Q4HRT PRN Shortness Of Breath Albuterol 2 puff 02/25/21 22:00 Albuterol 8.5 Gm Mdi Inhalation IH Q4HRT PRN Shortness Of Breath Atorvastatin Calcium 40 mg 02/22/21 22:00 03/01/21 21:04 Atorvastatin 40 Mg Tab PO 40 mg QHS GIA Administration Dexamethasone 6 mg 02/22/21 10:00 03/01/21 10:36 Dexamethasone 4 Mg/Ml Vial IV 03/02/21 10:01 6 mg DAILY GIA Administration Famotidine 20 mg 02/22/21 10:00 03/01/21 21:04 Famotidine 20 Mg Tab PO 20 mg BID GIA Administration Heparin Sodium (Porcine) 3,100 unit 02/28/21 15:01 Heparin 10,000 Units/10 Ml Vial 40 unit/kg (3100 unit) IV Q6H PRN Anti-Xa Assay < 0.1 units/ml Hydromorphone HCl 0.5 mg 02/22/21 02:24 Hydromorphone 1 Mg/1 Ml Inj IV Q3H PRN Pain , Severe (7-10) Heparin Sodium/Sodium Chloride 25,000 unit in 500 mls @ 23 mls/hr 02/28/21 16:00 03/01/21 20:22 Heparin/ 0.45% Nacl-25,000 Unit/500 Ml IV 850 units/hr TITR GIA 17 mls/hr Titration Protocol 1,150 UNITS/HR Ibuprofen 800 mg 02/25/21 14:00 Ibuprofen 800 Mg Tab PO Q8HR PRN Pain, Moderate (4-6) Meclizine HCl 25 mg 02/24/21 10:18 Meclizine 25 Mg Tab PO Q8H PRN Vertigo Morphine Sulfate 2 mg 02/22/21 02:24 Morphine 2 Mg/1 Ml Inj IV Q4H PRN Pain, Moderate (4-6) Ondansetron HCl 4 mg 02/22/21 02:24 Ondansetron 4 Mg/2 Ml Inj IV Q8H PRN Nausea And Vomiting Sodium Chloride 10 ml 02/22/21 10:00 03/01/21 21:06 Sodium Chloride 0.9% 10 Ml Flush Syringe IV 10 ml BID GIA Administration Sodium Chloride 10 ml 02/22/21 02:24 03/01/21 21:05 Sodium Chloride 0.9% 10 Ml Flush Syringe IV 10 ml PRN PRN Administration LINE FLUSH Nutrition/Malnutrition Assess - Dietary Evaluation Nutrition/Malnutrition Findings: Nutrition Notes Start: 02/24/21 11:50 Freq: Status: Active Protocol: Document 02/24/21 11:50 ADONIS (Rec: 02/24/21 12:16 ADONIS [id number]) Nutrition Notes Need for Assessment generated from: restorer paper and prints Initial or Follow up Assessment Current Diagnosis Respiratory Failure Other Pertinent Diagnosis SOB, COVID-19 PUI, Hemorroids. Current Diet Cardiac Diet (B 02/22). Labs/Tests 02/24: Crea 0.3, Glu 105, Troponin T 0.035. Pertinent Medications 02/24: Nutritionally unremarkable. Height 5 ft 4 in Weight 76.657 kg [place] Body Weight (kg) 54.54 BMI 29.0 Intake Prior to Admission Good Weight change and time frame Pt states having loss weight recently without trying. Weight Status Overweight Subjective/Other Information RD consult for skin risk assessment. Pt shows no signs of concern for skin risk at the time, other than hemorroids, according to physical Assessment History notes. No available information regarding %PO intake of meals at the time. Percent of energy/protein needs met: Prescribed Cardiac Diet provides for energy/protein needs (2,230 Kcal/85 g) during LOS. Burn Absent Trauma Absent GI Symptoms Diarrhea Food Allergy No Skin Integrity/Comment Banded Hemorroid. Minimum of two criteria No Is patient on ventilator? No Is Patient Ambulatory and/or Out of Bed Yes REE-([facility]-ambulatory/OOB) [ [id number] [id number]] Calculation Used for Recommendations [facility] Additional Notes Protein: 0.8-1 g/Kg; 62-77 g/ day. Fluids: 1 ml/Kcal, or as per MD. Nutrition Intervention Change Diet Order: Continue Cardiac Diet. Follow-Up By: 03/03/21 Additional Comments Continue monitoring food tolerance, %PO intake of meals , and BM.
[2021-03-02] MEDS: FAMOTIDINE 20 MG TAB PO SCH ×2 (10:00→22:03)
--- NOTE | 2021-03-02 10:52 | Event Note ---
Date: 03/02/21 Reviewed imaging and discussed with consultants. Patient would benefit from percutaneous mechanical thrombectomy. Assessing to see if we have the available inventory on hand or if this needs to be purchased overnight.
[2021-03-02] MEDS: dexAMETHasone 4 MG/ML VIAL IV SCH (11:19)
--- NOTE | 2021-03-02 12:28 | Progress Note ---
Assessment and Plan Pt is a 65-year-old female with a hx of bilateral PE (dx 01/17/2021) who was unable to tolerate anticoagulation in the setting of hemorrhagic shock secondary to rectal bleeding (for which she was hospitalized at [facility] starting 01/17/2021). Pt eventually had an IVC filter placed on 01/21/2021. Who is admitted for complaints of dizziness and SOB x 2 days prior to admission COVID-19- ID following Acute Respiratory failure-pulmonology follow Bilateral PE NSTEMI type 2 Dizziness Bilateral lower extremity DVTs IVC filter Anemia H/o GI bleed Echocardiogram 02/23/2021: LVEF 55 to 60%. LV SF normal. Flattened septum consistent with right ventricular volume and pressure overload. Mild diastolic dysfunction. RV mildly dilated. Mild TR. RVSP 33 mmHg Plan: Patient awaiting mechanical thrombectomy Will continue anticoagulation with Eliquis due to bilateral PEs and bilateral DVTs with close monitoring for signs of bleeding Continue present management Pt seen in conjunction with Dr. Reyes, who agrees with the assessment and plan of care. - Patient Problems (1) Acute hypoxemic respiratory failure due to COVID-19 Current Visit: Yes Status: Acute (2) Hypotension Current Visit: Yes Status: Acute (3) Pulmonary embolism Current Visit: Yes Status: Acute (4) Type 2 myocardial infarction Current Visit: Yes Status: Acute (5) Bilateral pulmonary embolism Current Visit: Yes Status: Chronic (6) History of rectal bleeding Current Visit: Yes Status: Chronic (7) Presence of IVC filter Current Visit: Yes Status: Chronic Subjective Date of service: 03/02/21 Principal diagnosis: Acute Respiratory Failure, COVID-19, Interval history: Patient resting in bed in no acute distress. Sinus 68 on monitor Objective Vital Signs Temp Pulse Resp BP Pulse Ox 03/02/21 06:12 98.3 F 79 18 132/80 97 03/02/21 00:00 97 03/01/21 20:06 98.8 F 92 H 18 112/72 98 - Physical Examination General: Appears Well HEENT: Positive: EOMI, Normocephaly Neck: Positive: neck supple, trachea midline Cardiac: Positive: Reg Rate and Rhythm Lungs: Positive: Normal Breath Sounds Neuro: Positive: Grossly Intact Abdomen: Positive: Soft. Negative: Tender Skin: Negative: Rash Musculoskeletal: No Fluid Collection, No Pain, Normal Range of Motion Extremities: Present: lower extr. pulses. Absent: edema - Labs and Meds CBC 03/02/21 Range/Units 07:23 Hgb 9.3 L (10.1-14.3) gm/dl Hct 29.9 L (30.3-42.9) % Plt Count 377 (140-440) K/mm3 Comprehensive Metabolic Panel 03/02/21 Range/Units 07:23 Sodium 139 (137-145) mmol/L Potassium 3.9 (3.6-5.0) mmol/L Chloride 105.7 (98-107) mmol/L Carbon Dioxide 22 (22-30) mmol/L BUN 12 (7-17) mg/dL Creatinine 0.3 L (0.6-1.2) mg/dL Glucose 138 H (65-100) mg/dL Calcium 8.5 (8.4-10.2) mg/dL - Imaging and Cardiology EKG: report reviewed, image reviewed Echo: report reviewed (Echocardiogram 02/23/2021: LVEF 55 to 60%. LV SF normal. Flattened septum consistent with right ventricular volume and pressure overload. Mild diastolic dysfunction. RV mildly dilated. Mild TR. RVSP 33 mmHg.) - Telemetry EKG Rhythm: Sinus Rhythm - EKG Sinus rhythms and dysrhythmias: sinus rhythm Ventricular dysrhythmias: ventricular premature com
--- NOTE | 2021-03-02 14:22 | Progress Note ---
Assessment and Plan 65 y/o overweight female with Pulm Embolism and COVID with acute respiratory failure who has already failed anticoagulation once secondary to rectal bleeding now not a candidate for EKOS therapy 03/02/21: Appreciate IR eval and help. laboratory sampler for EKOS. Continue to wean FiO2 for sats >88%. Off steroids now. 02/27/21: Agree with GI assessment. I have no objection to just putting the patient on Prednisone 40 daily now almost as a preventive measure but still addresses inflammation from COVID and colitis. Prone as tolerated. Wean FiO2 for sats >88%. Likely will need home O2 but this can be assessed again when she goes back to rehab. 02/26/21: No new recs for today. Follow up CTA. Discussed with cards on yesterday and IR has seen today. 1. Prone 2. Steroids 3. Keep as dry as possible Subjective Date of service: 03/02/21 Principal diagnosis: Acute Respiratory Failure, COVID-19, Interval history: No acute events. Per IR going for EKOS when equipment is available. on 4 liters NC. Objective Vital Signs - 12hr 03/02/21 03/02/21 03/02/21 06:12 08:19 12:00 Temperature 98.3 F 98.4 F 98.4 F Pulse Rate 79 87 66 Respiratory 18 15 18 Rate Blood Pressure 132/80 Blood Pressure 126/72 [Right] O2 Sat by Pulse 97 98 100 Oximetry Constitutional: no acute distress Eyes: non-icteric ENT: oropharynx moist Neck: supple Ascultation: Bilateral: diminished breath sounds Cardiovascular: regular rate and rhythm Gastrointestinal: normoactive bowel sounds, soft, non-tender, non-distended Extremities: no cyanosis CBC and BMP: 03/02/21 07:23 03/02/21 07:23 ABG, PT/INR, D-dimer: PT/INR, D-dimer PT 20.8 Sec. (12.2-14.9) H 02/28/21 18:30 INR 1.62 (0.87-1.13) H 02/28/21 18:30 D-Dimer 2905.38 ng/mlDDU (0-234) H 02/25/21 05:00 Abnormal lab findings: Abnormal Labs 02/21/21 02/21/21 02/22/21 23:50 23:50 01:14 WBC RBC 2.91 L Hgb 9.1 L Hct 29.7 L MCV 102 H RDW 20.5 H Lymph % (Auto) Seg Neutrophils % Seg Neuts % (Manual) 81.0 H Lymphocytes % (Manual) 4.0 L Nucleated RBC % 1.0 H Seg Neutrophils # Seg Neutrophils # Man 8.7 H Lymphocytes # (Manual) 0.4 L PT INR APTT D-Dimer Heparin Anti-Xa Level Chloride Carbon Dioxide 20 L Creatinine Glucose 198 H Lactic Acid 2.10 H* Calcium 8.2 L Total Creatine Kinase 17 L CK-MB (CK-2) Rel Index 17.0 H Troponin T 0.104 H* C-Reactive Protein Total Protein 5.3 L Albumin 2.7 L Coronavirus (PCR) 02/22/21 02/22/21 02/23/21 16:16 16:16 00:58 WBC RBC Hgb 9.0 L Hct MCV RDW Lymph % (Auto) Seg Neutrophils % Seg Neuts % (Manual) Lymphocytes % (Manual) Nucleated RBC % Seg Neutrophils # Seg Neutrophils # Man Lymphocytes # (Manual) PT INR APTT D-Dimer Heparin Anti-Xa Level Chloride Carbon Dioxide Creatinine Glucose Lactic Acid Calcium Total Creatine Kinase CK-MB (CK-2) Rel Index Troponin T 0.062 H D 0.060 H C-Reactive Protein Total Protein Albumin Coronavirus (PCR) 02/23/21 02/23/21 02/23/21 08:01 08:01 Unknown WBC 11.1 H RBC 3.09 L Hgb 9.6 L Hct MCV 101 H RDW 20.2 H Lymph % (Auto) 10.7 L Seg Neutrophils % 84.2 H Seg Neuts % (Manual) Lymphocytes % (Manual) Nucleated RBC % Seg Neutrophils # 9.4 H Seg Neutrophils # Man Lymphocytes # (Manual) PT INR APTT D-Dimer Heparin Anti-Xa Level Chloride Carbon Dioxide Creatinine 0.3 L Glucose 118 H Lactic Acid Calcium Total Creatine Kinase CK-MB (CK-2) Rel Index Troponin T C-Reactive Protein Total Protein Albumin Coronavirus (PCR) Positive A 02/24/21 02/24/21 02/25/21 07:58 07:58 05:00 WBC RBC Hgb 9.0 L Hct MCV RDW Lymph % (Auto) Seg Neutrophils % Seg Neuts % (Manual) Lymphocytes % (Manual) Nucleated RBC % Seg Neutrophils # Seg Neutrophils # Man Lymphocytes # (Manual) PT INR APTT D-Dimer Heparin Anti-Xa Level Chloride 107.2 H Carbon Dioxide Creatinine 0.3 L 0.4 L Glucose 105 H 128 H Lactic Acid Calcium Total Creatine Kinase CK-MB (CK-2) Rel Index Troponin T 0.035 H D C-Reactive Protein 1.60 H Total Protein 4.9 L Albumin 2.7 L Coronavirus (PCR) 02/25/21 02/25/21 02/25/21 05:00 16:51 16:51 WBC RBC 2.80 L Hgb 8.7 L Hct 28.2 L MCV 101 H RDW 20.2 H Lymph % (Auto) Seg Neutrophils % Seg Neuts % (Manual) Lymphocytes % (Manual) Nucleated RBC % Seg Neutrophils # Seg Neutrophils # Man Lymphocytes # (Manual) PT 18.1 H INR 1.36 H APTT D-Dimer 2905.38 H Heparin Anti-Xa Level Chloride Carbon Dioxide Creatinine Glucose Lactic Acid Calcium Total Creatine Kinase CK-MB (CK-2) Rel Index Troponin T C-Reactive Protein Total Protein Albumin Coronavirus (PCR) 02/25/21 02/26/21 02/26/21 16:51 05:35 05:35 WBC 12.1 H RBC 2.73 L Hgb 8.3 L Hct 26.8 L MCV 98 H RDW 20.0 H Lymph % (Auto) Seg Neutrophils % Seg Neuts % (Manual) 91.0 H Lymphocytes % (Manual) 6.0 L Nucleated RBC % Seg Neutrophils # Seg Neutrophils # Man 11.0 H Lymphocytes # (Manual) 0.7 L PT INR APTT D-Dimer Heparin Anti-Xa Level Chloride 108.0 H Carbon Dioxide Creatinine 0.5 L 0.4 L Glucose 127 H Lactic Acid Calcium Total Creatine Kinase CK-MB (CK-2) Rel Index Troponin T C-Reactive Protein Total Protein 4.9 L Albumin 2.8 L Coronavirus (PCR) 02/27/21 02/27/21 02/28/21 07:32 07:32 05:16 WBC RBC 2.75 L Hgb 8.5 L 8.6 L Hct 26.6 L 27.8 L MCV RDW 19.7 H Lymph % (Auto) Seg Neutrophils % Seg Neuts % (Manual) Lymphocytes % (Manual) Nucleated RBC % Seg Neutrophils # Seg Neutrophils # Man Lymphocytes # (Manual) PT INR APTT D-Dimer Heparin Anti-Xa Level Chloride 107.9 H Carbon Dioxide Creatinine 0.4 L Glucose 110 H Lactic Acid Calcium Total Creatine Kinase CK-MB (CK-2) Rel Index Troponin T C-Reactive Protein Total Protein 4.6 L Albumin 2.5 L Coronavirus (PCR) 02/28/21 02/28/21 02/28/21 05:16 18:30 22:56 WBC RBC Hgb Hct MCV RDW Lymph % (Auto) Seg Neutrophils % Seg Neuts % (Manual) Lymphocytes % (Manual) Nucleated RBC % Seg Neutrophils # Seg Neutrophils # Man Lymphocytes # (Manual) PT 20.8 H INR 1.62 H APTT 64.2 H* D-Dimer Heparin Anti-Xa Level 1.82 H Chloride Carbon Dioxide Creatinine 0.4 L Glucose Lactic Acid Calcium Total Creatine Kinase CK-MB (CK-2) Rel Index Troponin T C-Reactive Protein Total Protein Albumin Coronavirus (PCR) 03/01/21 03/01/21 03/02/21 09:06 19:30 01:45 WBC RBC Hgb Hct MCV RDW Lymph % (Auto) Seg Neutrophils % Seg Neuts % (Manual) Lymphocytes % (Manual) Nucleated RBC % Seg Neutrophils # Seg Neutrophils # Man Lymphocytes # (Manual) PT INR APTT D-Dimer Heparin Anti-Xa Level 1.04 H 0.88 H 0.75 H Chloride Carbon Dioxide Creatinine Glucose Lactic Acid Calcium Total Creatine Kinase CK-MB (CK-2) Rel Index Troponin T C-Reactive Protein Total Protein Albumin Coronavirus (PCR) 03/02/21 03/02/21 07:23 07:23 WBC RBC Hgb 9.3 L Hct 29.9 L MCV RDW Lymph % (Auto) Seg Neutrophils % Seg Neuts % (Manual) Lymphocytes % (Manual) Nucleated RBC % Seg Neutrophils # Seg Neutrophils # Man Lymphocytes # (Manual) PT INR APTT D-Dimer Heparin Anti-Xa Level Chloride Carbon Dioxide Creatinine 0.3 L Glucose 138 H Lactic Acid Calcium Total Creatine Kinase CK-MB (CK-2) Rel Index Troponin T C-Reactive Protein Total Protein Albumin Coronavirus (PCR)
[2021-03-02] MEDS ORDERED: HEPARIN/NS 5000 UNIT/500ML 1,000 ML IR ONE (15:09)
[2021-03-02] MEDS ORDERED: LIDOCAINE 1%/EPINEPHRINE 1:100,000 VIAL (20 ML) INFILTRATI ONE (15:09)
[2021-03-02] MEDS ORDERED: SODIUM CHLORIDE 0.9% 250ML 250 ML ONE ×2 (15:10→15:49)
[2021-03-02] MEDS ORDERED: HEPARIN 10,000 UNITS/10 ML VIAL ONE (15:24)
[2021-03-02] MEDS: MIDAZOLAM 2 MG/2 ML INJ ONE ×2 (15:45→15:55)
[2021-03-02] MEDS: fentaNYL 100 MCG/2 ML INJ ONE ×2 (15:45→15:55)
--- NOTE | 2021-03-02 16:51 | Post Operative Note ---
Date of procedure: 03/02/21 Pre-op diagnosis: Submassive pulmonary embolism, symptomatic Post-op diagnosis: same Findings: 400 mL aspiration from indigo device Procedure: 1. Ultrasound guided access of the right common femoral vein 2. Selection of the main pulmonary embolism with angiography 3. Selection of the left main pulmonary embolism with angiography 4. Thrombectomy of the left distal main pulmonary artery with CAT-12 5. Thrombectomy of the left lower lobar pulmonary artery with CAT-12 6. Thrombectomy of the left upper lobar pulmonary artery with CAT-12 Anesthesia: local (w/ conscious sedation) Surgeon: DIONNE RIOS Estimated blood loss: minimal Condition: stable Disposition: floor
--- NOTE | 2021-03-02 17:05 | Operative Report ---
Operative Report Operative Report: EXAM: 1. Ultrasound guided access of the right common femoral vein 2. Selection of the IVC with venography 3. Selection of the main pulmonary embolism with angiography 4. Selection of the left main pulmonary embolism with angiography 5. Thrombectomy of the left distal main pulmonary artery with CAT-12 6. Thrombectomy of the left lower lobar pulmonary artery with CAT-12 7. Thrombectomy of the left upper lobar pulmonary artery with CAT-12 TELEPHONE COIN BOX COLLECTOR: DIONNE RIOS MD DATE: 03/02/2021 INDICATION: Submassive pulmonary embolism with COVID and oxygen dependence with rapid desaturation with minimal movement with need for endovascular therapy. Patient had IVC filter placed 1 month ago. ANESTHESIA: Moderate sedation with Versed and fentanyl CONTRAST: Received report for full details PROCEDURE: The risks, benefits, and alternatives were discussed; written informed consent was obtained. Both groins were prepped and draped in a sterile fashion. The left common femoral artery was assessed by ultrasound and was patent. The area was anesthetized. A 21-gauge micropuncture needle was used to access the left common femoral artery under direct ultrasound guidance. Permanent imaging was saved and placed in the permanent record. 0.018 inch wire was passed into the iliac artery. The needle was exchanged for a transitional dilator. Wire was exchanged for a 0.035 inch wire. The transitional dilator was exchanged for a 5 [place] sheath. Digital subtraction angiography was performed through the sheath demonstrating an appropriate puncture, immediately above the level of the left femoral bifurcation and below the left inferior epigastric artery. The left common iliac artery, external iliac artery, and internal iliac artery are patent. The left common femoral artery is patent. 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 The left profunda femoral artery is patent. The left proximal superficial femoral artery is patent. Flush catheter was used to select the abdominal aorta. Digital subtraction angiography was performed. Catheter was used to select the right external iliac artery, and common femoral artery with selection of the right superficial femoral artery. Digital subtraction angiography was performed. The infrarenal abdominal aorta is patent. No stenotic lesions. The right common iliac artery is patent. The right external iliac artery is patent. The right internal iliac artery is patent. The right common femoral artery is patent. The right profunda femoral artery is patent. The right superficial femoral artery and popliteal artery are both widely patent. 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 There is significant restenosis of the anterior tibial artery. Ostium of the anterior tibial artery demonstrates 70 to 80% stenosis. The proximal anterior tibial artery otherwise demonstrates some nonflow limiting dissections and less than 10% residual stenosis. The mid anterior tibial artery has a 90% stenosis which extends 10 to 15 cm, and then has an area of only 30% stenosis. The distal anterior tibial artery has 90% stenosis which extends 5 cm to 10 cm and then only has 20 to 30% stenosis. The tibioperoneal trunk is patent. The peroneal artery is heavily diseased. Although the proximal peroneal artery is patent, there is significant arterial disease in the mid and distal portion of the peroneal artery with intermittent high-grade narrowing and occlusions. The posterior tibial artery is the dominant flow to the foot. The proximal posterior tibial artery is patent. The mid posterior tibial artery demonstrates a 30% stenosis. The distal posterior tibial artery demonstrates tapering of the vessels with 50% stenosis at the common plantar vessel. The lateral and medial plantar vessels are both quite diminutive in size. After reviewing the diagnostic angiogram, I decided that the patient required an intervention. The patient was heparinized and the sheath was exchanged for a 6 [place] 90 cm [place] destination positioned in the right popliteal artery. The tibioperoneal trunk was selected and digital subtraction angiography was performed. Wire and catheter were used to select the right anterior tibial artery and then a variety of wires and catheters were used to cross the high-grade stenotic lesions. Intermittent angiography was performed to confirm the above-mentioned findings. After crossing the occlusion, digital subtraction angiography was performed confirming position, and wire was exchanged for a Viper wire. Atherectomy was then performed of the right anterior tibial artery with a 1.25 solid CSI at medium, and high settings. Afterwards, angioplasty was performed using a 3.5 mm x 240 mm angioplasty balloon was then used to perform angioplasty throughout the anterior tibial artery and digital subtraction angiography then demonstrated brisk flow through the vessel, with less than 10-20 % residual stenosis throughout except for the ostium which had a 50% residual stenosis. 4 mm x 80 mm Stellarex angioplasty balloon was then used to perform angioplasty of the ostial and proximal anterior tibial artery. Digital subtraction angiography was performed demonstrating less than 20% res idual narrowing throughout the now patent anterior tibial artery. This now provided two-vessel runoff to the foot. At this point, all wires, catheters, and sheaths were retracted to the left external iliac artery. At this point, all devices were removed over 0.035 inch wire and exchanged for 6 [place] Pro-style which was used to close the arteriotomy achieving immediate hemostasis. Sterile dressing applied. Pressure dressing applied. Patient tolerated the procedure well. No immediate post procedural complications. The patient had a strongly palpable right dorsalis pedis pulse at the conclusion of the procedure. FINDINGS: Please see procedure note above. IMPRESSION: 1. Successful ultrasound guided access of the left common femoral artery with prostyle assisted closure. 2. Successful atherectomy and angioplasty of the right anterior tibial artery.
[2021-03-03] MEDS: HEPARIN/ 0.45% NACL DRIP 25,000 UNIT/500 ML BAG IV SCH (05:34)
--- NOTE | 2021-03-03 08:27 | Progress Note ---
Assessment and Plan 65 y/o overweight female with Pulm Embolism and COVID with acute respiratory failure who has already failed anticoagulation once secondary to rectal bleeding now not a candidate for EKOS therapy 03/03/21: antiocoagulation. Wean FiO2 as tolerated for sats >88%. Will need ambulatory pulse ox prior to discharge. 03/02/21: Appreciate IR edwina and help. medical lab assistant for EKOS. Continue to wean FiO2 for sats >88%. Off steroids now. 02/27/21: Agree with GI assessment. I have no objection to just putting the patient on Prednisone 40 daily now almost as a preventive measure but still addresses inflammation from COVID and colitis. Prone as tolerated. Wean FiO2 for sats >88%. Likely will need home O2 but this can be assessed again when she goes back to rehab. 02/26/21: No new recs for today. Follow up CTA. Discussed with cards on yesterday and IR has seen today. 1. Prone 2. Steroids 3. Keep as dry as possible Subjective Date of service: 03/03/21 Principal diagnosis: Acute Respiratory Failure, COVID-19, Interval history: Mechanical thrombectomy on yesterday evening. tolerated well. Now down to 3 liters satting 100%. Objective Vital Signs - 12hr 03/02/21 03/03/21 03/03/21 20:54 00:24 04:30 Temperature 98.1 F 98.1 F Pulse Rate 90 76 Respiratory 16 16 Rate Blood Pressure 91/60 113/71 O2 Sat by Pulse 96 100 99 Oximetry Constitutional: no acute distress Eyes: non-icteric ENT: oropharynx moist Neck: supple Ascultation: Bilateral: diminished breath sounds Cardiovascular: regular rate and rhythm Gastrointestinal: normoactive bowel sounds, soft, non-tender, non-distended Extremities: no cyanosis CBC and BMP: 03/02/21 07:23 03/02/21 07:23 ABG, PT/INR, D-dimer: PT/INR, D-dimer PT 20.8 Sec. (12.2-14.9) H 02/28/21 18:30 INR 1.62 (0.87-1.13) H 02/28/21 18:30 D-Dimer 2905.38 ng/mlDDU (0-234) H 02/25/21 05:00 Abnormal lab findings: Abnormal Labs 02/21/21 02/21/21 02/22/21 23:50 23:50 01:14 WBC RBC 2.91 L Hgb 9.1 L Hct 29.7 L MCV 102 H RDW 20.5 H Lymph % (Auto) Seg Neutrophils % Seg Neuts % (Manual) 81.0 H Lymphocytes % (Manual) 4.0 L Nucleated RBC % 1.0 H Seg Neutrophils # Seg Neutrophils # Man 8.7 H Lymphocytes # (Manual) 0.4 L PT INR APTT D-Dimer Heparin Anti-Xa Level Chloride Carbon Dioxide 20 L Creatinine Glucose 198 H Lactic Acid 2.10 H* Calcium 8.2 L Total Creatine Kinase 17 L CK-MB (CK-2) Rel Index 17.0 H Troponin T 0.104 H* C-Reactive Protein Total Protein 5.3 L Albumin 2.7 L Coronavirus (PCR) 02/22/21 02/22/21 02/23/21 16:16 16:16 00:58 WBC RBC Hgb 9.0 L Hct MCV RDW Lymph % (Auto) Seg Neutrophils % Seg Neuts % (Manual) Lymphocytes % (Manual) Nucleated RBC % Seg Neutrophils # Seg Neutrophils # Man Lymphocytes # (Manual) PT INR APTT D-Dimer Heparin Anti-Xa Level Chloride Carbon Dioxide Creatinine Glucose Lactic Acid Calcium Total Creatine Kinase CK-MB (CK-2) Rel Index Troponin T 0.062 H D 0.060 H C-Reactive Protein Total Protein Albumin Coronavirus (PCR) 02/23/21 02/23/21 02/23/21 08:01 08:01 Unknown WBC 11.1 H RBC 3.09 L Hgb 9.6 L Hct MCV 101 H RDW 20.2 H Lymph % (Auto) 10.7 L Seg Neutrophils % 84.2 H Seg Neuts % (Manual) Lymphocytes % (Manual) Nucleated RBC % Seg Neutrophils # 9.4 H Seg Neutrophils # Man Lymphocytes # (Manual) PT INR APTT D-Dimer Heparin Anti-Xa Level Chloride Carbon Dioxide Creatinine 0.3 L Glucose 118 H Lactic Acid Calcium Total Creatine Kinase CK-MB (CK-2) Rel Index Troponin T C-Reactive Protein Total Protein Albumin Coronavirus (PCR) Positive A 02/24/21 02/24/21 02/25/21 07:58 07:58 05:00 WBC RBC Hgb 9.0 L Hct MCV RDW Lymph % (Auto) Seg Neutrophils % Seg Neuts % (Manual) Lymphocytes % (Manual) Nucleated RBC % Seg Neutrophils # Seg Neutrophils # Man Lymphocytes # (Manual) PT INR APTT D-Dimer Heparin Anti-Xa Level Chloride 107.2 H Carbon Dioxide Creatinine 0.3 L 0.4 L Glucose 105 H 128 H Lactic Acid Calcium Total Creatine Kinase CK-MB (CK-2) Rel Index Troponin T 0.035 H D C-Reactive Protein 1.60 H Total Protein 4.9 L Albumin 2.7 L Coronavirus (PCR) 02/25/21 02/25/21 02/25/21 05:00 16:51 16:51 WBC RBC 2.80 L Hgb 8.7 L Hct 28.2 L MCV 101 H RDW 20.2 H Lymph % (Auto) Seg Neutrophils % Seg Neuts % (Manual) Lymphocytes % (Manual) Nucleated RBC % Seg Neutrophils # Seg Neutrophils # Man Lymphocytes # (Manual) PT 18.1 H INR 1.36 H APTT D-Dimer 2905.38 H Heparin Anti-Xa Level Chloride Carbon Dioxide Creatinine Glucose Lactic Acid Calcium Total Creatine Kinase CK-MB (CK-2) Rel Index Troponin T C-Reactive Protein Total Protein Albumin Coronavirus (PCR) 02/25/21 02/26/21 02/26/21 16:51 05:35 05:35 WBC 12.1 H RBC 2.73 L Hgb 8.3 L Hct 26.8 L MCV 98 H RDW 20.0 H Lymph % (Auto) Seg Neutrophils % Seg Neuts % (Manual) 91.0 H Lymphocytes % (Manual) 6.0 L Nucleated RBC % Seg Neutrophils # Seg Neutrophils # Man 11.0 H Lymphocytes # (Manual) 0.7 L PT INR APTT D-Dimer Heparin Anti-Xa Level Chloride 108.0 H Carbon Dioxide Creatinine 0.5 L 0.4 L Glucose 127 H Lactic Acid Calcium Total Creatine Kinase CK-MB (CK-2) Rel Index Troponin T C-Reactive Protein Total Protein 4.9 L Albumin 2.8 L Coronavirus (PCR) 02/27/21 02/27/21 02/28/21 07:32 07:32 05:16 WBC RBC 2.75 L Hgb 8.5 L 8.6 L Hct 26.6 L 27.8 L MCV RDW 19.7 H Lymph % (Auto) Seg Neutrophils % Seg Neuts % (Manual) Lymphocytes % (Manual) Nucleated RBC % Seg Neutrophils # Seg Neutrophils # Man Lymphocytes # (Manual) PT INR APTT D-Dimer Heparin Anti-Xa Level Chloride 107.9 H Carbon Dioxide Creatinine 0.4 L Glucose 110 H Lactic Acid Calcium Total Creatine Kinase CK-MB (CK-2) Rel Index Troponin T C-Reactive Protein Total Protein 4.6 L Albumin 2.5 L Coronavirus (PCR) 02/28/21 02/28/21 02/28/21 05:16 18:30 22:56 WBC RBC Hgb Hct MCV RDW Lymph % (Auto) Seg Neutrophils % Seg Neuts % (Manual) Lymphocytes % (Manual) Nucleated RBC % Seg Neutrophils # Seg Neutrophils # Man Lymphocytes # (Manual) PT 20.8 H INR 1.62 H APTT 64.2 H* D-Dimer Heparin Anti-Xa Level 1.82 H Chloride Carbon Dioxide Creatinine 0.4 L Glucose Lactic Acid Calcium Total Creatine Kinase CK-MB (CK-2) Rel Index Troponin T C-Reactive Protein Total Protein Albumin Coronavirus (PCR) 03/01/21 03/01/21 03/02/21 09:06 19:30 01:45 WBC RBC Hgb Hct MCV RDW Lymph % (Auto) Seg Neutrophils % Seg Neuts % (Manual) Lymphocytes % (Manual) Nucleated RBC % Seg Neutrophils # Seg Neutrophils # Man Lymphocytes # (Manual) PT INR APTT D-Dimer Heparin Anti-Xa Level 1.04 H 0.88 H 0.75 H Chloride Carbon Dioxide Creatinine Glucose Lactic Acid Calcium Total Creatine Kinase CK-MB (CK-2) Rel Index Troponin T C-Reactive Protein Total Protein Albumin Coronavirus (PCR) 03/02/21 03/02/21 07:23 07:23 WBC RBC Hgb 9.3 L Hct 29.9 L MCV RDW Lymph % (Auto) Seg Neutrophils % Seg Neuts % (Manual) Lymphocytes % (Manual) Nucleated RBC % Seg Neutrophils # Seg Neutrophils # Man Lymphocytes # (Manual) PT INR APTT D-Dimer Heparin Anti-Xa Level Chloride Carbon Dioxide Creatinine 0.3 L Glucose 138 H Lactic Acid Calcium Total Creatine Kinase CK-MB (CK-2) Rel Index Troponin T C-Reactive Protein Total Protein Albumin Coronavirus (PCR)
[2021-03-03 09:45] LABS: Blood Urea Nitrogen 11 mg/dL (7-17); Calcium 8.8 mg/dL (8.4-10.2); Hemolysis Index 2
[2021-03-03 09:46] LABS: BUN/Creatinine Ratio 37
--- NOTE | 2021-03-03 10:52 | Progress Note ---
Assessment and Plan Pt is a 65-year-old female with a hx of bilateral PE (dx 01/17/2021) who was unable to tolerate anticoagulation in the setting of hemorrhagic shock secondary to rectal bleeding (for which she was hospitalized at [facility] starting 01/17/2021). Pt eventually had an IVC filter placed on 01/21/2021. Who is admitted for complaints of dizziness and SOB x 2 days prior to admission COVID-19- ID following Acute Respiratory failure-pulmonology follow Bilateral PE NSTEMI type 2 Dizziness Bilateral lower extremity DVTs IVC filter Anemia H/o GI bleed Echocardiogram 02/23/2021: LVEF 55 to 60%. LV SF normal. Flattened septum consistent with right ventricular volume and pressure overload. Mild diastolic dysfunction. RV mildly dilated. Mild TR. RVSP 33 mmHg Plan: Patient had mechanical thrombectomy yesterday Patient currently being anticoagulated with heparin drip. Discussed anticoagul aiton with Dr. Mittal. Will convert to Eliquis 5mg PO BID Continue present management Cardiac status stable. Will sign off Pt seen in conjunction with Dr. Reyes, who agrees with the assessment and plan of care. - Patient Problems (1) Acute hypoxemic respiratory failure due to COVID-19 Current Visit: Yes Status: Acute (2) Hypotension Current Visit: Yes Status: Acute (3) Pulmonary embolism Current Visit: Yes Status: Acute (4) Type 2 myocardial infarction Current Visit: Yes Status: Acute (5) Bilateral pulmonary embolism Current Visit: Yes Status: Chronic (6) History of rectal bleeding Current Visit: Yes Status: Chronic (7) Presence of IVC filter Current Visit: Yes Status: Chronic Subjective Date of service: 03/03/21 Principal diagnosis: Acute Respiratory Failure, COVID-19, Interval history: Patient resting in bed in no acute distress. Patient had thrombectomy yesterday Sinus 90on monitor Objective Vital Signs Temp Pulse Resp BP BP Pulse Ox 03/03/21 04:30 98.1 F 76 16 113/71 99 03/03/21 00:24 100 03/02/21 20:54 98.1 F 90 16 91/60 96 03/02/21 20:01 98 03/02/21 17:30 98.1 F 86 18 111/71 94 03/02/21 12:00 98.4 F 66 18 126/72 96 - Physical Examination General: Appears Well HEENT: Positive: EOMI, Normocephaly Neck: Positive: neck supple, trachea midline Cardiac: Positive: Reg Rate and Rhythm Lungs: Positive: Normal Breath Sounds Neuro: Positive: Grossly Intact Abdomen: Positive: Soft. Negative: Tender Skin: Negative: Rash Musculoskeletal: No Fluid Collection, No Pain, Normal Range of Motion Extremities: Present: lower extr. pulses. Absent: edema - Labs and Meds Comprehensive Metabolic Panel 03/03/21 Range/Units 09:01 Sodium 138 (137-145) mmol/L Potassium 4.1 (3.6-5.0) mmol/L Chloride 104.3 (98-107) mmol/L Carbon Dioxide 21 L (22-30) mmol/L BUN 11 (7-17) mg/dL Creatinine 0.3 L (0.6-1.2) mg/dL Glucose 224 H (65-100) mg/dL Calcium 8.8 (8.4-10.2) mg/dL - Imaging and Cardiology EKG: report reviewed, image reviewed Echo: report reviewed (Echocardiogram 02/23/2021: LVEF 55 to 60%. LV SF normal. Flattened septum consistent with right ventricular volume and pressure overload. Mild diastolic dysfunction. RV mildly dilated. Mild TR. RVSP 33 mmHg.) - Telemetry EKG Rhythm: Sinus Rhythm - EKG Sinus rhythms and dysrhythmias: sinus rhythm Ventricular dysrhythmias: ventricular premature com
[2021-03-03] MEDS: FAMOTIDINE 20 MG TAB PO SCH ×2 (11:43→21:13)
[2021-03-03] MEDS: ACETAMINOPHEN 325 MG TAB PO PRN (11:43)
[2021-03-03 13:14] LABS: Hematocrit 30.5 % (30.3-42.9); Hemoglobin 9.5 gm/dl (10.1-14.3); Mean Corpuscular HGB Conc 31 % (30-34); Mean Corpuscular Volume 99 fl (79-97); Platelet Count 368 K/mm3 (140-440); Red Blood Count 3.09 M/mm3 (3.65-5.03); Red Cell Distribution Width 19.9 % (13.2-15.2)
[2021-03-03 13:55] LABS: INR 1.04 (0.87-1.13)
[2021-03-03 13:56] LABS: Partial Thromboplastin Time 27.3 Sec. (24.2-36.6)
--- NOTE | 2021-03-03 14:57 | Progress Note ---
Assessment and Plan 65-year-old female with COVID-pneumonia and pulmonary embolism with IVC filter with previous history of bleeding hemorrhoids. Submassive pulmonary embolism with bilateral lower extremity DVT. Status post thrombectomy. No longer on supplementary oxygen. Doing better. Will need to be anticoagulated for at least 3 months and afterwards may benefit from half dose anticoagulation if using DOAC. Currently on anticoagulation, no evidence of recurrent bleeding. Continue anticoagulation. Patient has financial issues and this makes anticoagulation complicated. Would prefer DOAC if possible. We will consult case management. Perhaps Xarelto assistance program or Eliquis assistance program can be used. IVC filter with small amount of retained thrombus. Can be removed after 2 to 3 months of anticoagulation. Discussed with patient. Remove stitch from right groin and placed bandage. Follow-up in 2 weeks as outpatient. Subjective Date of service: 03/03/21 Principal diagnosis: Acute Respiratory Failure, COVID-19, Interval history: Patient is doing well and no longer on supplementary oxygen. Just finished with physical therapy without supplementary oxygen. Right groin site clean, dry, and intact. Suture removed. Dressing applied to right groin. Can be changed daily. Objective - Constitutional Vitals: Vital Signs - 12hr 03/03/21 03/03/21 04:30 12:00 Temperature 98.1 F 98.5 F Pulse Rate 76 71 Respiratory 16 18 Rate Blood Pressure 113/71 Blood Pressure 105/68 [Right] O2 Sat by Pulse 99 97 Oximetry General appearance: Present: no acute distress - EENT Eyes: EOM intact ENT: hearing intact - Respiratory Respiratory effort: normal Extremities: normal temperature, normal color - Psychiatric Psychiatric: appropriate mood/affect, cooperative - Labs CBC & Chem 7: 03/03/21 12:52 03/03/21 12:52 Labs: Abnormal lab results 03/03/21 03/03/21 03/03/21 Range/Units 09:01 09:01 12:52 WBC 18.4 H (4.5-11.0) K/mm3 RBC 3.09 L (3.65-5.03) M/mm3 Hgb 9.5 L (10.1-14.3) gm/dl MCV 99 H (79-97) fl RDW 19.9 H (13.2-15.2) % Heparin Anti-Xa Level 1.29 H (0.3-0.7) U.I./ml Carbon Dioxide 21 L (22-30) mmol/L Creatinine 0.3 L (0.6-1.2) mg/dL Glucose 224 H (65-100) mg/dL 03/03/21 Range/Units 12:52 WBC (4.5-11.0) K/mm3 RBC (3.65-5.03) M/mm3 Hgb (10.1-14.3) gm/dl MCV (79-97) fl RDW (13.2-15.2) % Heparin Anti-Xa Level (0.3-0.7) U.I./ml Carbon Dioxide (22-30) mmol/L Creatinine 0.4 L (0.6-1.2) mg/dL Glucose (65-100) mg/dL Medications & Allergies - Medications Allergies/Adverse Reactions: Allergies lisinopril Allergy (Severe, Verified 02/26/21 12:03) Anaphylaxis Patient says she has no allergies Home Medications: Home Medications Medication Instructions Recorded Confirmed Last Taken Type No Known Home Medications [No 02/26/21 02/26/21 Unknown History Reported Home Medications] Active Medications: Generic Name Dose Route Start Last Admin Trade Name Freq PRN Reason Stop Dose Admin Acetaminophen 650 mg 02/22/21 02:24 03/03/21 11:43 Acetaminophen 325 Mg Tab PO 650 mg Q4H PRN Administration Pain MILD(1-3)/Fever >100.5/SALAZAR Albuterol 2.5 mg 02/24/21 17:28 Albuterol 2.5 Mg/3 Ml Nebu IH Q4HRT PRN Shortness Of Breath Albuterol 2 puff 02/25/21 22:00 Albuterol 8.5 Gm Mdi Inhalation IH Q4HRT PRN Shortness Of Breath Apixaban 5 mg 03/03/21 22:00 Apixaban 5 Mg Tab PO Q12HR GIA Protocol Atorvastatin Calcium 40 mg 02/22/21 22:00 03/02/21 22:03 Atorvastatin 40 Mg Tab PO 40 mg QHS GIA Administration Famotidine 20 mg 02/22/21 10:00 03/03/21 11:43 Famotidine 20 Mg Tab PO 20 mg BID GIA Administration Hydromorphone HCl 0.5 mg 02/22/21 02:24 Hydromorphone 1 Mg/1 Ml Inj IV Q3H PRN Pain , Severe (7-10) Ibuprofen 800 mg 02/25/21 14:00 Ibuprofen 800 Mg Tab PO Q8HR PRN Pain, Moderate (4-6) Meclizine HCl 25 mg 02/24/21 10:18 Meclizine 25 Mg Tab PO Q8H PRN Vertigo Morphine Sulfate 2 mg 02/22/21 02:24 Morphine 2 Mg/1 Ml Inj IV Q4H PRN Pain, Moderate (4-6) Ondansetron HCl 4 mg 02/22/21 02:24 Ondansetron 4 Mg/2 Ml Inj IV Q8H PRN Nausea And Vomiting Sodium Chloride 10 ml 02/22/21 10:00 03/03/21 11:43 Sodium Chloride 0.9% 10 Ml Flush Syringe IV 10 ml BID GIA Administration Sodium Chloride 10 ml 02/22/21 02:24 03/01/21 21:05 Sodium Chloride 0.9% 10 Ml Flush Syringe IV 10 ml PRN PRN Administration LINE FLUSH HEART Score - HEART Score Troponin: Troponin T 0.035 ng/mL (0.00-0.029) H D 02/24/21 07:58
--- NOTE | 2021-03-03 16:08 | Progress Note ---
History Interval history: 65-year-old female past medical history of pulmonary embolism, previous tobacco abuse presented to hospital complaining of shortness of breath. This began 2 days prior to admission and has been worsening. She was admitted as Covid PUI. Covid PCR found to be positive on 02/23/2021. #Acute hypoxic respiratory failure-resolved #COVID-19 pneumonia Positive coronavirus PCR on 02/23/2021 No need for remdesivir or IV steroids. Continue to monitor. #Bilateral PE #Bilateral LE DVT S/p mechanical thrombectomy by vascular surgery on 03/02/2021 IVC filter placed by vascular surgery; can be removed after 2-3 months of appropriate anticoagulation. Starting patient on Eliquis 5 mg every 12 hours. Monitoring for possible bleeding. Patient admits to having financial difficulties and will require financial assistance with anticoagulation. #Mild pulmonary hypertension Continue to monitor #Advanced care planning -Disease education conducted, care plan discussed, diagnoses discussed, pro gnosis discussed, and patient acknowledges understanding with care plan -Time: +30 min Hospitalist Physical - Constitutional Vitals: Temp Pulse Resp BP Pulse Ox 98.5 F 71 18 105/68 96 03/03/21 12:00 03/03/21 12:00 03/03/21 12:00 03/03/21 12:00 03/03/21 12:00 General appearance: Present: no acute distress HEART Score - HEART Score Troponin: Troponin T 0.035 ng/mL (0.00-0.029) H D 02/24/21 07:58 Results - Labs CBC & Chem 7: 03/03/21 12:52 03/03/21 12:52 Labs: Laboratory Last Values WBC 18.4 K/mm3 (4.5-11.0) H 03/03/21 12:52 RBC 3.09 M/mm3 (3.65-5.03) L 03/03/21 12:52 Hgb 9.5 gm/dl (10.1-14.3) L 03/03/21 12:52 Hct 30.5 % (30.3-42.9) 03/03/21 12:52 MCV 99 fl (79-97) H 03/03/21 12:52 MCH 31 pg (28-32) 03/03/21 12:52 MCHC 31 % (30-34) 03/03/21 12:52 RDW 19.9 % (13.2-15.2) H 03/03/21 12:52 Plt Count 368 K/mm3 (140-440) 03/03/21 12:52 Lymph % (Auto) 10.7 % (13.4-35.0) L 02/23/21 08:01 [place] % (Auto) 5.0 % (0.0-7.3) 02/23/21 08:01 Eos % (Auto) 0.0 % (0.0-4.3) 02/23/21 08:01 Baso % (Auto) 0.1 % (0.0-1.8) 02/23/21 08:01 Lymph # (Auto) 1.2 K/mm3 (1.2-5.4) 02/23/21 08:01 [place] # (Auto) 0.6 K/mm3 (0.0-0.8) 02/23/21 08:01 Eos # (Auto) 0.0 K/mm3 (0.0-0.4) 02/23/21 08:01 Baso # (Auto) 0.0 K/mm3 (0.0-0.1) 02/23/21 08:01 Add Manual Diff Complete 02/26/21 05:35 Total Counted 100 02/26/21 05:35 Seg Neutrophils % 84.2 % (40.0-70.0) H 02/23/21 08:01 Seg Neuts % (Manual) 91.0 % (40.0-70.0) H 02/26/21 05:35 Band Neutrophils % 0 % 02/26/21 05:35 Lymphocytes % (Manual) 6.0 % (13.4-35.0) L 02/26/21 05:35 Reactive Lymphs % (Man) 0 % 02/26/21 05:35 Monocytes % (Manual) 3.0 % (0.0-7.3) 02/26/21 05:35 Eosinophils % (Manual) 0 % (0.0-4.3) 02/26/21 05:35 Basophils % (Manual) 0 % (0.0-1.8) 02/26/21 05:35 Metamyelocytes % 0 % 02/26/21 05:35 Myelocytes % 0 % 02/26/21 05:35 Promyelocytes % 0 % 02/26/21 05:35 Blast Cells % 0 % 02/26/21 05:35 Nucleated RBC % Not Reportable 02/26/21 05:35 Seg Neutrophils # 9.4 K/mm3 (1.8-7.7) H 02/23/21 08:01 Seg Neutrophils # Man 11.0 K/mm3 (1.8-7.7) H 02/26/21 05:35 Band Neutrophils # 0.0 K/mm3 02/26/21 05:35 Lymphocytes # (Manual) 0.7 K/mm3 (1.2-5.4) L 02/26/21 05:35 Abs React Lymphs (Man) 0.0 K/mm3 02/26/21 05:35 Monocytes # (Manual) 0.4 K/mm3 (0.0-0.8) 02/26/21 05:35 Eosinophils # (Manual) 0.0 K/mm3 (0.0-0.4) 02/26/21 05:35 Basophils # (Manual) 0.0 K/mm3 (0.0-0.1) 02/26/21 05:35 Metamyelocytes # 0.0 K/mm3 02/26/21 05:35 Myelocytes # 0.0 K/mm3 02/26/21 05:35 Promyelocytes # 0.0 K/mm3 02/26/21 05:35 Blast Cells # 0.0 K/mm3 02/26/21 05:35 WBC Morphology Not Reportable 02/26/21 05:35 Hypersegmented Neuts Not Reportable 02/26/21 05:35 Hyposegmented Neuts Not Reportable 02/26/21 05:35 Hypogranular Neuts Not Reportable 02/26/21 05:35 Smudge Cells Not Reportable 02/26/21 05:35 Toxic Granulation Not Reportable 02/26/21 05:35 Toxic Vacuolation Not Reportable 02/26/21 05:35 Dohle Bodies Not Reportable 02/26/21 05:35 Pelger-Huet Anomaly Not Reportable 02/26/21 05:35 Lisandro Rods Not Reportable 02/26/21 05:35 Platelet Estimate Consistent w auto 02/26/21 05:35 Clumped Platelets Not Reportable 02/26/21 05:35 Plt Clumps, EDTA Not Reportable 02/26/21 05:35 Large Platelets Few 02/26/21 05:35 Giant Platelets Not Reportable 02/26/21 05:35 Platelet Satelliting Not Reportable 02/26/21 05:35 Plt Morphology Comment Not Reportable 02/26/21 05:35 RBC Morphology Not Reportable 02/26/21 05:35 Dimorphic RBCs Not Reportable 02/26/21 05:35 Polychromasia 1+ 02/26/21 05:35 Hypochromasia Not Reportable 02/26/21 05:35 Poikilocytosis Not Reportable 02/26/21 05:35 Anisocytosis 1+ 02/26/21 05:35 Microcytosis Not Reportable 02/26/21 05:35 Macrocytosis Not Reportable 02/26/21 05:35 Spherocytes Not Reportable 02/26/21 05:35 Pappenheimer Bodies Not Reportable 02/26/21 05:35 Sickle Cells Not Reportable 02/26/21 05:35 Target Cells Not Reportable 02/26/21 05:35 Tear Drop Cells Not Reportable 02/26/21 05:35 Ovalocytes Not Reportable 02/26/21 05:35 Helmet Cells Not Reportable 02/26/21 05:35 [place] Bodies Not Reportable 02/26/21 05:35 Keeler Rings Not Reportable 02/26/21 05:35 [place] Cells Not Reportable 02/26/21 05:35 Bite Cells Not Reportable 02/26/21 05:35 Crenated Cell Not Reportable 02/26/21 05:35 Elliptocytes Not Reportable 02/26/21 05:35 Acanthocytes (Spur) Not Reportable 02/26/21 05:35 Rouleaux Not Reportable 02/26/21 05:35 Hemoglobin C Crystals Not Reportable 02/26/21 05:35 Schistocytes 1+ 02/26/21 05:35 Malaria parasites Not Reportable 02/26/21 05:35 [place] Bodies Not Reportable 02/26/21 05:35 Hem Pathologist Commnt No 02/26/21 05:35 PT 14.7 Sec. (12.2-14.9) 03/03/21 12:52 INR 1.04 (0.87-1.13) 03/03/21 12:52 APTT 27.3 Sec. (24.2-36.6) 03/03/21 12:52 D-Dimer 2905.38 ng/mlDDU (0-234) H 02/25/21 05:00 Heparin Anti-Xa Level 1.29 U.I./ml (0.3-0.7) H 03/03/21 09:01 Sodium 138 mmol/L (137-145) 03/03/21 09:01 Potassium 4.1 mmol/L (3.6-5.0) 03/03/21 09:01 Chloride 104.3 mmol/L (98-107) 03/03/21 09:01 Carbon Dioxide 21 mmol/L (22-30) L 03/03/21 09:01 Anion Gap 17 mmol/L 03/03/21 09:01 BUN 11 mg/dL (7-17) 03/03/21 09:01 Creatinine 0.4 mg/dL (0.6-1.2) L 03/03/21 12:52 Estimated GFR > 60 ml/min 03/03/21 12:52 BUN/Creatinine Ratio 37 % 03/03/21 09:01 Glucose 224 mg/dL (65-100) H 03/03/21 09:01 Lactic Acid 1.50 mmol/L (0.7-2.0) 02/22/21 16:16 Calcium 8.8 mg/dL (8.4-10.2) 03/03/21 09:01 Magnesium 1.80 mg/dL (1.7-2.3) 02/21/21 23:50 Total Bilirubin 0.20 mg/dL (0.1-1.2) 02/27/21 07:32 AST 11 units/L (5-40) 02/27/21 07:32 ALT 16 units/L (7-56) 02/27/21 07:32 Alkaline Phosphatase 61 units/L (35-129) 02/27/21 07:32 Total Creatine Kinase 17 units/L (30-135) L 02/21/21 23:50 CK-MB (CK-2) 2.9 ng/mL (0.0-4.0) 02/21/21 23:50 CK-MB (CK-2) Rel Index 17.0 (0-4) H 02/21/21 23:50 Troponin T 0.035 ng/mL (0.00-0.029) H D 02/24/21 07:58 C-Reactive Protein 1.60 mg/dL (0.00-1.30) H 02/25/21 05:00 Total Protein 4.6 g/dL (6.3-8.2) L 02/27/21 07:32 Albumin 2.5 g/dL (3.9-5) L 02/27/21 07:32 Albumin/Globulin Ratio 1.2 % 02/27/21 07:32 Triglycerides 93 mg/dL (2-149) 02/21/21 23:50 Cholesterol 161 mg/dL (50-199) 02/21/21 23:50 LDL Cholesterol Direct 100 mg/dL (50-130) 02/21/21 23:50 HDL Cholesterol 46 mg/dL (40-59) 02/21/21 23:50 Cholesterol/HDL Ratio 3.50 % 02/21/21 23:50 Lipase 24 units/L (13-60) 02/21/21 23:50 Procalcitonin 3.55 ng/mL (<0.15) 02/23/21 08:01 Coronavirus (PCR) Positive (Negative) A 02/23/21 Unknown Blood Type O POSITIVE 03/02/21 07:10 Antibody Screen Negative 03/02/21 07:10 Monk/IV: Voiding Method Incontinent Active Medications - Current Medications Current Medications: Generic Name Dose Route Start Last Admin Trade Name Freq PRN Reason Stop Dose Admin Acetaminophen 650 mg 02/22/21 02:24 03/03/21 11:43 Acetaminophen 325 Mg Tab PO 650 mg Q4H PRN Administration Pain MILD(1-3)/Fever >100.5/SALAZAR Albuterol 2.5 mg 02/24/21 17:28 Albuterol 2.5 Mg/3 Ml Nebu IH Q4HRT PRN Shortness Of Breath Albuterol 2 puff 02/25/21 22:00 Albuterol 8.5 Gm Mdi Inhalation IH Q4HRT PRN Shortness Of Breath Apixaban 5 mg 03/03/21 22:00 Apixaban 5 Mg Tab PO Q12HR GIA Protocol Atorvastatin Calcium 40 mg 02/22/21 22:00 03/02/21 22:03 Atorvastatin 40 Mg Tab PO 40 mg QHS GIA Administration Famotidine 20 mg 02/22/21 10:00 03/03/21 11:43 Famotidine 20 Mg Tab PO 20 mg BID GIA Administration Hydromorphone HCl 0.5 mg 02/22/21 02:24 Hydromorphone 1 Mg/1 Ml Inj IV Q3H PRN Pain , Severe (7-10) Ibuprofen 800 mg 02/25/21 14:00 Ibuprofen 800 Mg Tab PO Q8HR PRN Pain, Moderate (4-6) Meclizine HCl 25 mg 02/24/21 10:18 Meclizine 25 Mg Tab PO Q8H PRN Vertigo Morphine Sulfate 2 mg 02/22/21 02:24 Morphine 2 Mg/1 Ml Inj IV Q4H PRN Pain, Moderate (4-6) Ondansetron HCl 4 mg 02/22/21 02:24 Ondansetron 4 Mg/2 Ml Inj IV Q8H PRN Nausea And Vomiting Sodium Chloride 10 ml 02/22/21 10:00 03/03/21 11:43 Sodium Chloride 0.9% 10 Ml Flush Syringe IV 10 ml BID GIA Administration Sodium Chloride 10 ml 02/22/21 02:24 03/01/21 21:05 Sodium Chloride 0.9% 10 Ml Flush Syringe IV 10 ml PRN PRN Administration LINE FLUSH Nutrition/Malnutrition Assess - Dietary Evaluation Nutrition/Malnutrition Findings: Nutrition Notes Start: 02/24/21 11:50 Freq: Status: Active Protocol: Document 02/24/21 11:50 ADONIS (Rec: 02/24/21 12:16 ADONIS [id number]) Nutrition Notes 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 Current Diet Cardiac Diet (B 02/22). Labs/Tests 02/24: Crea 0.3, Glu 105, Troponin T 0.035. Pertinent Medications 02/24: Nutritionally unremarkable. Height 5 ft 4 in Weight 76.657 kg [place] Body Weight (kg) 54.54 BMI 29.0 Intake Prior to Admission Good Weight change and time frame Pt states having loss weight recently without trying. Weight Status Overweight Subjective/Other Information RD consult for skin risk assessment. Pt shows no signs of concern for skin risk at the time, other than hemorroids, according to physical Assessment History notes. No available information regarding %PO intake of meals at the time. Percent of energy/protein needs met: Prescribed Cardiac Diet provides for energy/protein needs (2,230 Kcal/85 g) during LOS. Burn Absent Trauma Absent GI Symptoms Diarrhea Food Allergy No Skin Integrity/Comment Banded Hemorroid. Minimum of two criteria No Is patient on ventilator? No Is Patient Ambulatory and/or Out of Bed Yes REE-([facility]-ambulatory/OOB) [ [id number] [id number]] Calculation Used for Recommendations [facility] Additional Notes Protein: 0.8-1 g/Kg; 62-77 g/ day. Fluids: 1 ml/Kcal, or as per MD. Nutrition Intervention Change Diet Order: Continue Cardiac Diet. Follow-Up By: 03/03/21 Additional Comments Continue monitoring food tolerance, %PO intake of meals , and BM.
[2021-03-03] MEDS: APIXABAN 5 MG TAB PO SCH (21:13)
[2021-03-04 07:09] LABS: Hematocrit 26.8 % (30.3-42.9); Hemoglobin 8.2 gm/dl (10.1-14.3); Mean Corpuscular HGB Conc 31 % (30-34); Mean Corpuscular Volume 97 fl (79-97); Platelet Count 280 K/mm3 (140-440); Red Blood Count 2.77 M/mm3 (3.65-5.03); Red Cell Distribution Width 19.6 % (13.2-15.2)
[2021-03-04 07:32] LABS: Blood Urea Nitrogen 10 mg/dL (7-17); Calcium 8.5 mg/dL (8.4-10.2); Hemolysis Index 1
[2021-03-04 07:33] LABS: BUN/Creatinine Ratio 33
[2021-03-04 09:00] LABS: Band Neutrophils # (Manual) 0.7 K/mm3; Basophils % (Manual) 0 % (0.0-1.8); Eosinophils % (Manual) 0 % (0.0-4.3); Myelocytes # (Manual) 0.3 K/mm3; Platelet Estimate Consistent w Auto; RBC Morphology Normal; Total Cells Counted 100
[2021-03-04] MEDS: APIXABAN 5 MG TAB PO SCH ×2 (10:02→21:16)
[2021-03-04] MEDS: FAMOTIDINE 20 MG TAB PO SCH ×2 (10:02→21:16)
--- NOTE | 2021-03-04 12:43 | Progress Note ---
Assessment and Plan 65 y/o overweight female with Pulm Embolism and COVID with acute respiratory failure who has already failed anticoagulation once secondary to rectal bleeding now not a candidate for EKOS therapy 03/04/21: Ambulatory pulse ox at discharge to determine oxygen needs if any. Oral anticoagulation. Will sign off. 03/03/21: antiocoagulation. Wean FiO2 as tolerated for sats >88%. Will need ambulatory pulse ox prior to discharge. 03/02/21: Appreciate IR eval and help. laboratory tech for EKOS. Continue to wean FiO2 for sats >88%. Off steroids now. 02/27/21: Agree with GI assessment. I have no objection to just putting the patient on Prednisone 40 daily now almost as a preventive measure but still addresses inflammation from COVID and colitis. Prone as tolerated. Wean FiO2 for sats >88%. Likely will need home O2 but this can be assessed again when she goes back to rehab. 02/26/21: No new recs for today. Follow up CTA. Discussed with cards on yesterday and IR has seen today. 1. Prone 2. Steroids 3. Keep as dry as possible Subjective Date of service: 03/04/21 Principal diagnosis: Acute Respiratory Failure, COVID-19, Interval history: Was weaned off oxygen now back on 4 liters. No documentation as to why or what happened in RT notes. Objective Constitutional: no acute distress Eyes: non-icteric ENT: oropharynx moist Neck: supple Ascultation: Bilateral: diminished breath sounds Cardiovascular: regular rate and rhythm Gastrointestinal: normoactive bowel sounds, soft, non-tender, non-distended Extremities: no cyanosis CBC and BMP: 03/04/21 06:40 03/04/21 06:40 ABG, PT/INR, D-dimer: PT/INR, D-dimer PT 14.7 Sec. (12.2-14.9) 03/03/21 12:52 INR 1.04 (0.87-1.13) 03/03/21 12:52 D-Dimer 2905.38 ng/mlDDU (0-234) H 02/25/21 05:00 Abnormal lab findings: Abnormal Labs 02/21/21 02/21/21 02/22/21 23:50 23:50 01:14 WBC RBC 2.91 L Hgb 9.1 L Hct 29.7 L MCV 102 H RDW 20.5 H Lymph % (Auto) Seg Neutrophils % Seg Neuts % (Manual) 81.0 H Lymphocytes % (Manual) 4.0 L Nucleated RBC % 1.0 H Seg Neutrophils # Seg Neutrophils # Man 8.7 H Lymphocytes # (Manual) 0.4 L PT INR APTT D-Dimer Heparin Anti-Xa Level Chloride Carbon Dioxide 20 L Creatinine Glucose 198 H Lactic Acid 2.10 H* Calcium 8.2 L Total Creatine Kinase 17 L CK-MB (CK-2) Rel Index 17.0 H Troponin T 0.104 H* C-Reactive Protein Total Protein 5.3 L Albumin 2.7 L Coronavirus (PCR) 02/22/21 02/22/21 02/23/21 16:16 16:16 00:58 WBC RBC Hgb 9.0 L Hct MCV RDW Lymph % (Auto) Seg Neutrophils % Seg Neuts % (Manual) Lymphocytes % (Manual) Nucleated RBC % Seg Neutrophils # Seg Neutrophils # Man Lymphocytes # (Manual) PT INR APTT D-Dimer Heparin Anti-Xa Level Chloride Carbon Dioxide Creatinine Glucose Lactic Acid Calcium Total Creatine Kinase CK-MB (CK-2) Rel Index Troponin T 0.062 H D 0.060 H C-Reactive Protein Total Protein Albumin Coronavirus (PCR) 02/23/21 02/23/21 02/23/21 08:01 08:01 Unknown WBC 11.1 H RBC 3.09 L Hgb 9.6 L Hct MCV 101 H RDW 20.2 H Lymph % (Auto) 10.7 L Seg Neutrophils % 84.2 H Seg Neuts % (Manual) Lymphocytes % (Manual) Nucleated RBC % Seg Neutrophils # 9.4 H Seg Neutrophils # Man Lymphocytes # (Manual) PT INR APTT D-Dimer Heparin Anti-Xa Level Chloride Carbon Dioxide Creatinine 0.3 L Glucose 118 H Lactic Acid Calcium Total Creatine Kinase CK-MB (CK-2) Rel Index Troponin T C-Reactive Protein Total Protein Albumin Coronavirus (PCR) Positive A 02/24/21 02/24/21 02/25/21 07:58 07:58 05:00 WBC RBC Hgb 9.0 L Hct MCV RDW Lymph % (Auto) Seg Neutrophils % Seg Neuts % (Manual) Lymphocytes % (Manual) Nucleated RBC % Seg Neutrophils # Seg Neutrophils # Man Lymphocytes # (Manual) PT INR APTT D-Dimer Heparin Anti-Xa Level Chloride 107.2 H Carbon Dioxide Creatinine 0.3 L 0.4 L Glucose 105 H 128 H Lactic Acid Calcium Total Creatine Kinase CK-MB (CK-2) Rel Index Troponin T 0.035 H D C-Reactive Protein 1.60 H Total Protein 4.9 L Albumin 2.7 L Coronavirus (PCR) 02/25/21 02/25/21 02/25/21 05:00 16:51 16:51 WBC RBC 2.80 L Hgb 8.7 L Hct 28.2 L MCV 101 H RDW 20.2 H Lymph % (Auto) Seg Neutrophils % Seg Neuts % (Manual) Lymphocytes % (Manual) Nucleated RBC % Seg Neutrophils # Seg Neutrophils # Man Lymphocytes # (Manual) PT 18.1 H INR 1.36 H APTT D-Dimer 2905.38 H Heparin Anti-Xa Level Chloride Carbon Dioxide Creatinine Glucose Lactic Acid Calcium Total Creatine Kinase CK-MB (CK-2) Rel Index Troponin T C-Reactive Protein Total Protein Albumin Coronavirus (PCR) 02/25/21 02/26/21 02/26/21 16:51 05:35 05:35 WBC 12.1 H RBC 2.73 L Hgb 8.3 L Hct 26.8 L MCV 98 H RDW 20.0 H Lymph % (Auto) Seg Neutrophils % Seg Neuts % (Manual) 91.0 H Lymphocytes % (Manual) 6.0 L Nucleated RBC % Seg Neutrophils # Seg Neutrophils # Man 11.0 H Lymphocytes # (Manual) 0.7 L PT INR APTT D-Dimer Heparin Anti-Xa Level Chloride 108.0 H Carbon Dioxide Creatinine 0.5 L 0.4 L Glucose 127 H Lactic Acid Calcium Total Creatine Kinase CK-MB (CK-2) Rel Index Troponin T C-Reactive Protein Total Protein 4.9 L Albumin 2.8 L Coronavirus (PCR) 02/27/21 02/27/21 02/28/21 07:32 07:32 05:16 WBC RBC 2.75 L Hgb 8.5 L 8.6 L Hct 26.6 L 27.8 L MCV RDW 19.7 H Lymph % (Auto) Seg Neutrophils % Seg Neuts % (Manual) Lymphocytes % (Manual) Nucleated RBC % Seg Neutrophils # Seg Neutrophils # Man Lymphocytes # (Manual) PT INR APTT D-Dimer Heparin Anti-Xa Level Chloride 107.9 H Carbon Dioxide Creatinine 0.4 L Glucose 110 H Lactic Acid Calcium Total Creatine Kinase CK-MB (CK-2) Rel Index Troponin T C-Reactive Protein Total Protein 4.6 L Albumin 2.5 L Coronavirus (PCR) 02/28/21 02/28/21 02/28/21 05:16 18:30 22:56 WBC RBC Hgb Hct MCV RDW Lymph % (Auto) Seg Neutrophils % Seg Neuts % (Manual) Lymphocytes % (Manual) Nucleated RBC % Seg Neutrophils # Seg Neutrophils # Man Lymphocytes # (Manual) PT 20.8 H INR 1.62 H APTT 64.2 H* D-Dimer Heparin Anti-Xa Level 1.82 H Chloride Carbon Dioxide Creatinine 0.4 L Glucose Lactic Acid Calcium Total Creatine Kinase CK-MB (CK-2) Rel Index Troponin T C-Reactive Protein Total Protein Albumin Coronavirus (PCR) 03/01/21 03/01/21 03/02/21 09:06 19:30 01:45 WBC RBC Hgb Hct MCV RDW Lymph % (Auto) Seg Neutrophils % Seg Neuts % (Manual) Lymphocytes % (Manual) Nucleated RBC % Seg Neutrophils # Seg Neutrophils # Man Lymphocytes # (Manual) PT INR APTT D-Dimer Heparin Anti-Xa Level 1.04 H 0.88 H 0.75 H Chloride Carbon Dioxide Creatinine Glucose Lactic Acid Calcium Total Creatine Kinase CK-MB (CK-2) Rel Index Troponin T C-Reactive Protein Total Protein Albumin Coronavirus (PCR) 03/02/21 03/02/21 03/03/21 07:23 07:23 09:01 WBC RBC Hgb 9.3 L Hct 29.9 L MCV RDW Lymph % (Auto) Seg Neutrophils % Seg Neuts % (Manual) Lymphocytes % (Manual) Nucleated RBC % Seg Neutrophils # Seg Neutrophils # Man Lymphocytes # (Manual) PT INR APTT D-Dimer Heparin Anti-Xa Level 1.29 H Chloride Carbon Dioxide Creatinine 0.3 L Glucose 138 H Lactic Acid Calcium Total Creatine Kinase CK-MB (CK-2) Rel Index Troponin T C-Reactive Protein Total Protein Albumin Coronavirus (PCR) 03/03/21 03/03/21 03/03/21 09:01 12:52 12:52 WBC 18.4 H RBC 3.09 L Hgb 9.5 L Hct MCV 99 H RDW 19.9 H Lymph % (Auto) Seg Neutrophils % Seg Neuts % (Manual) Lymphocytes % (Manual) Nucleated RBC % Seg Neutrophils # Seg Neutrophils # Man Lymphocytes # (Manual) PT INR APTT D-Dimer Heparin Anti-Xa Level Chloride Carbon Dioxide 21 L Creatinine 0.3 L 0.4 L Glucose 224 H Lactic Acid Calcium Total Creatine Kinase CK-MB (CK-2) Rel Index Troponin T C-Reactive Protein Total Protein Albumin Coronavirus (PCR) 03/04/21 03/04/21 06:40 06:40 WBC 14.8 H RBC 2.77 L Hgb 8.2 L Hct 26.8 L MCV RDW 19.6 H Lymph % (Auto) Seg Neutrophils % Seg Neuts % (Manual) 87.0 H Lymphocytes % (Manual) 3.0 L Nucleated RBC % Seg Neutrophils # Seg Neutrophils # Man 12.9 H Lymphocytes # (Manual) 0.4 L PT INR APTT D-Dimer Heparin Anti-Xa Level Chloride Carbon Dioxide Creatinine 0.3 L Glucose 130 H Lactic Acid Calcium Total Creatine Kinase CK-MB (CK-2) Rel Index Troponin T C-Reactive Protein Total Protein Albumin Coronavirus (PCR)
--- NOTE | 2021-03-04 14:07 | Progress Note ---
Assessment and Plan Assessment and plan: 65-year-old female past medical history of pulmonary embolism, previous tobacco abuse presented to hospital complaining of shortness of breath. This began 2 days prior to admission and has been worsening. She was admitted as Covid PUI. Covid PCR found to be positive on 02/23/2021. #Acute hypoxic respiratory failure-resolved #COVID-19 pneumonia Positive coronavirus PCR on 02/23/2021 No need for remdesivir or IV steroids. Continue to monitor. #Bilateral PE #Bilateral LE DVT S/p mechanical thrombectomy by vascular surgery on 03/02/2021 IVC filter placed by vascular surgery; can be removed after 2-3 months of appropriate anticoagulation. Continue patient on Eliquis 5 mg every 12 hours. Monitoring for possible bleeding. Patient admits to having financial difficulties and will require financial assistance with anticoagulation. #Mild pulmonary hypertension Continue to monitor #Advanced care planning -Disease education conducted, care plan discussed, diagnoses discussed, prognosis discussed, and patient acknowledges understanding with care plan -Time: +30 min #Discharge planning - Patient is pending further monitoring to ensure no GI bleeding - Case management has been made aware. - Discharge is tentatively for 03/05/2021 Disposition Plan: Pending discharge home tomorrow Total Time Spent with Patient (Minutes): 45 minutes History Interval history: No acute events over night. The patient denies fevers, chills, nausea, vomiting, abdominal pain, chest pain/pressure, shortness of breath, urinary symptoms, weakness, or confusion. Hospitalist Physical - Constitutional Vitals: Temp Pulse Resp BP Pulse Ox 98.0 F 98 H 16 113/66 96 03/03/21 21:48 03/03/21 21:48 03/03/21 21:48 03/03/21 21:48 03/03/21 22:00 General appearance: Present: no acute distress, well-nourished - EENT Eyes: Present: PERRL, EOM intact ENT: hearing intact, clear oral mucosa - Neck Neck: Present: supple, normal ROM - Respiratory Respiratory effort: normal Respiratory: bilateral: CTA, diminished - Cardiovascular Rhythm: regular Heart Sounds: Present: S1 & S2 - Extremities Extremities: no ischemia, pulses intact, pulses symmetrical, No edema, normal temperature, normal color, Full ROM Peripheral Pulses: within normal limits - Abdominal General gastrointestinal: soft, non-tender, non-distended, normal bowel sounds - Integumentary Integumentary: Present: clear, warm, dry - Psychiatric Psychiatric: appropriate mood/affect, cooperative - Neurologic Neurologic: CNII-XII intact, moves all extremities - Allied Health Allied health notes reviewed: nursing HEART Score - HEART Score Troponin: Troponin T 0.035 ng/mL (0.00-0.029) H D 02/24/21 07:58 Results - Labs CBC & Chem 7: 03/04/21 06:40 03/04/21 06:40 Labs: Laboratory Last Values WBC 14.8 K/mm3 (4.5-11.0) H 03/04/21 06:40 RBC 2.77 M/mm3 (3.65-5.03) L 03/04/21 06:40 Hgb 8.2 gm/dl (10.1-14.3) L 03/04/21 06:40 Hct 26.8 % (30.3-42.9) L 03/04/21 06:40 MCV 97 fl (79-97) 03/04/21 06:40 MCH 30 pg (28-32) 03/04/21 06:40 MCHC 31 % (30-34) 03/04/21 06:40 RDW 19.6 % (13.2-15.2) H 03/04/21 06:40 Plt Count 280 K/mm3 (140-440) 03/04/21 06:40 Lymph % (Auto) 10.7 % (13.4-35.0) L 02/23/21 08:01 [place] % (Auto) 5.0 % (0.0-7.3) 02/23/21 08:01 Eos % (Auto) 0.0 % (0.0-4.3) 02/23/21 08:01 Baso % (Auto) 0.1 % (0.0-1.8) 02/23/21 08:01 Lymph # (Auto) 1.2 K/mm3 (1.2-5.4) 02/23/21 08:01 [place] # (Auto) 0.6 K/mm3 (0.0-0.8) 02/23/21 08:01 Eos # (Auto) 0.0 K/mm3 (0.0-0.4) 02/23/21 08:01 Baso # (Auto) 0.0 K/mm3 (0.0-0.1) 02/23/21 08:01 Add Manual Diff Complete 03/04/21 06:40 Total Counted 100 03/04/21 06:40 Seg Neutrophils % 84.2 % (40.0-70.0) H 02/23/21 08:01 Seg Neuts % (Manual) 87.0 % (40.0-70.0) H 03/04/21 06:40 Band Neutrophils % 5.0 % 03/04/21 06:40 Lymphocytes % (Manual) 3.0 % (13.4-35.0) L 03/04/21 06:40 Reactive Lymphs % (Man) 1.0 % 03/04/21 06:40 Monocytes % (Manual) 1.0 % (0.0-7.3) 03/04/21 06:40 Eosinophils % (Manual) 0 % (0.0-4.3) 03/04/21 06:40 Basophils % (Manual) 0 % (0.0-1.8) 03/04/21 06:40 Metamyelocytes % 1.0 % 03/04/21 06:40 Myelocytes % 2.0 % 03/04/21 06:40 Promyelocytes % 0 % 03/04/21 06:40 Blast Cells % 0 % 03/04/21 06:40 Nucleated RBC % Not Reportable 03/04/21 06:40 Seg Neutrophils # 9.4 K/mm3 (1.8-7.7) H 02/23/21 08:01 Seg Neutrophils # Man 12.9 K/mm3 (1.8-7.7) H 03/04/21 06:40 Band Neutrophils # 0.7 K/mm3 03/04/21 06:40 Lymphocytes # (Manual) 0.4 K/mm3 (1.2-5.4) L 03/04/21 06:40 Abs React Lymphs (Man) 0.1 K/mm3 03/04/21 06:40 Monocytes # (Manual) 0.1 K/mm3 (0.0-0.8) 03/04/21 06:40 Eosinophils # (Manual) 0.0 K/mm3 (0.0-0.4) 03/04/21 06:40 Basophils # (Manual) 0.0 K/mm3 (0.0-0.1) 03/04/21 06:40 Metamyelocytes # 0.1 K/mm3 03/04/21 06:40 Myelocytes # 0.3 K/mm3 03/04/21 06:40 Promyelocytes # 0.0 K/mm3 03/04/21 06:40 Blast Cells # 0.0 K/mm3 03/04/21 06:40 WBC Morphology Not Reportable 03/04/21 06:40 Hypersegmented Neuts Not Reportable 03/04/21 06:40 Hyposegmented Neuts Not Reportable 03/04/21 06:40 Hypogranular Neuts Not Reportable 03/04/21 06:40 Smudge Cells Not Reportable 03/04/21 06:40 Toxic Granulation Not Reportable 03/04/21 06:40 Toxic Vacuolation Not Reportable 03/04/21 06:40 Dohle Bodies Not Reportable 03/04/21 06:40 Pelger-Huet Anomaly Not Reportable 03/04/21 06:40 Lisandro Rods Not Reportable 03/04/21 06:40 Platelet Estimate Consistent w auto 03/04/21 06:40 Clumped Platelets Not Reportable 03/04/21 06:40 Plt Clumps, EDTA Not Reportable 03/04/21 06:40 Large Platelets Not Reportable 03/04/21 06:40 Giant Platelets Not Reportable 03/04/21 06:40 Platelet Satelliting Not Reportable 03/04/21 06:40 Plt Morphology Comment Not Reportable 03/04/21 06:40 RBC Morphology Normal 03/04/21 06:40 Dimorphic RBCs Not Reportable 03/04/21 06:40 Polychromasia Not Reportable 03/04/21 06:40 Hypochromasia Not Reportable 03/04/21 06:40 Poikilocytosis Not Reportable 03/04/21 06:40 Anisocytosis Not Reportable 03/04/21 06:40 Microcytosis Not Reportable 03/04/21 06:40 Macrocytosis Not Reportable 03/04/21 06:40 Spherocytes Not Reportable 03/04/21 06:40 Pappenheimer Bodies Not Reportable 03/04/21 06:40 Sickle Cells Not Reportable 03/04/21 06:40 Target Cells Not Reportable 03/04/21 06:40 Tear Drop Cells Not Reportable 03/04/21 06:40 Ovalocytes Not Reportable 03/04/21 06:40 Helmet Cells Not Reportable 03/04/21 06:40 [place] Bodies Not Reportable 03/04/21 06:40 [place] Rings Not Reportable 03/04/21 06:40 [place] Cells Not Reportable 03/04/21 06:40 Bite Cells Not Reportable 03/04/21 06:40 Crenated Cell Not Reportable 03/04/21 06:40 Elliptocytes Not Reportable 03/04/21 06:40 Acanthocytes (Spur) Not Reportable 03/04/21 06:40 Rouleaux Not Reportable 03/04/21 06:40 Hemoglobin C Crystals Not Reportable 03/04/21 06:40 Schistocytes Not Reportable 03/04/21 06:40 Malaria parasites Not Reportable 03/04/21 06:40 [place] Bodies Not Reportable 03/04/21 06:40 Hem Pathologist Commnt No 03/04/21 06:40 PT 14.7 Sec. (12.2-14.9) 03/03/21 12:52 INR 1.04 (0.87-1.13) 03/03/21 12:52 APTT 27.3 Sec. (24.2-36.6) 03/03/21 12:52 D-Dimer 2905.38 ng/mlDDU (0-234) H 02/25/21 05:00 Heparin Anti-Xa Level 1.29 U.I./ml (0.3-0.7) H 03/03/21 09:01 Sodium 138 mmol/L (137-145) 03/04/21 06:40 Potassium 3.9 mmol/L (3.6-5.0) 03/04/21 06:40 Chloride 105.7 mmol/L (98-107) 03/04/21 06:40 Carbon Dioxide 23 mmol/L (22-30) 03/04/21 06:40 Anion Gap 13 mmol/L 03/04/21 06:40 BUN 10 mg/dL (7-17) 03/04/21 06:40 Creatinine 0.3 mg/dL (0.6-1.2) L 03/04/21 06:40 Estimated GFR > 60 ml/min 03/04/21 06:40 BUN/Creatinine Ratio 33 % 03/04/21 06:40 Glucose 130 mg/dL (65-100) H 03/04/21 06:40 Lactic Acid 1.50 mmol/L (0.7-2.0) 02/22/21 16:16 Calcium 8.5 mg/dL (8.4-10.2) 03/04/21 06:40 Magnesium 1.80 mg/dL (1.7-2.3) 02/21/21 23:50 Total Bilirubin 0.20 mg/dL (0.1-1.2) 02/27/21 07:32 AST 11 units/L (5-40) 02/27/21 07:32 ALT 16 units/L (7-56) 02/27/21 07:32 Alkaline Phosphatase 61 units/L (35-129) 02/27/21 07:32 Total Creatine Kinase 17 units/L (30-135) L 02/21/21 23:50 CK-MB (CK-2) 2.9 ng/mL (0.0-4.0) 02/21/21 23:50 CK-MB (CK-2) Rel Index 17.0 (0-4) H 02/21/21 23:50 Troponin T 0.035 ng/mL (0.00-0.029) H D 02/24/21 07:58 C-Reactive Protein 1.60 mg/dL (0.00-1.30) H 02/25/21 05:00 Total Protein 4.6 g/dL (6.3-8.2) L 02/27/21 07:32 Albumin 2.5 g/dL (3.9-5) L 02/27/21 07:32 Albumin/Globulin Ratio 1.2 % 02/27/21 07:32 Triglycerides 93 mg/dL (2-149) 02/21/21 23:50 Cholesterol 161 mg/dL (50-199) 02/21/21 23:50 LDL Cholesterol Direct 100 mg/dL (50-130) 02/21/21 23:50 HDL Cholesterol 46 mg/dL (40-59) 02/21/21 23:50 Cholesterol/HDL Ratio 3.50 % 02/21/21 23:50 Lipase 24 units/L (13-60) 02/21/21 23:50 Procalcitonin 3.55 ng/mL (<0.15) 02/23/21 08:01 Coronavirus (PCR) Positive (Negative) A 02/23/21 Unknown Blood Type O POSITIVE 03/02/21 07:10 Antibody Screen Negative 03/02/21 07:10 [place]/IV: Voiding Method Incontinent Active Medications - Current Medications Current Medications: Generic Name Dose Route Start Last Admin Trade Name Freq PRN Reason Stop Dose Admin Acetaminophen 650 mg 02/22/21 02:24 03/03/21 11:43 Acetaminophen 325 Mg Tab PO 650 mg Q4H PRN Administration Pain MILD(1-3)/Fever >100.5/SALAZAR Albuterol 2.5 mg 02/24/21 17:28 Albuterol 2.5 Mg/3 Ml Nebu IH Q4HRT PRN Shortness Of Breath Albuterol 2 puff 02/25/21 22:00 Albuterol 8.5 Gm Mdi Inhalation IH Q4HRT PRN Shortness Of Breath Apixaban 5 mg 03/03/21 22:00 03/04/21 10:02 Apixaban 5 Mg Tab PO 5 mg Q12HR GIA Administration Protocol Atorvastatin Calcium 40 mg 02/22/21 22:00 03/03/21 21:13 Atorvastatin 40 Mg Tab PO 40 mg QHS GIA Administration Famotidine 20 mg 02/22/21 10:00 03/04/21 10:02 Famotidine 20 Mg Tab PO 20 mg BID GIA Administration Hydromorphone HCl 0.5 mg 02/22/21 02:24 Hydromorphone 1 Mg/1 Ml Inj IV Q3H PRN Pain , Severe (7-10) Ibuprofen 800 mg 02/25/21 14:00 Ibuprofen 800 Mg Tab PO Q8HR PRN Pain, Moderate (4-6) Meclizine HCl 25 mg 02/24/21 10:18 Meclizine 25 Mg Tab PO Q8H PRN Vertigo Morphine Sulfate 2 mg 02/22/21 02:24 Morphine 2 Mg/1 Ml Inj IV Q4H PRN Pain, Moderate (4-6) Ondansetron HCl 4 mg 02/22/21 02:24 Ondansetron 4 Mg/2 Ml Inj IV Q8H PRN Nausea And Vomiting Sodium Chloride 10 ml 02/22/21 10:00 03/04/21 10:05 Sodium Chloride 0.9% 10 Ml Flush Syringe IV 10 ml BID GIA Administration Sodium Chloride 10 ml 02/22/21 02:24 03/01/21 21:05 Sodium Chloride 0.9% 10 Ml Flush Syringe IV 10 ml PRN PRN Administration LINE FLUSH Nutrition/Malnutrition Assess - Dietary Evaluation Nutrition/Malnutrition Findings: Nutrition Notes Start: 02/24/21 11:50 Freq: Status: Active Protocol: Document 02/24/21 11:50 ADONIS (Rec: 02/24/21 12:16 ADONIS [id number]) Nutrition Notes 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 Current Diet Cardiac Diet (B 02/22). Labs/Tests 02/24: Crea 0.3, Glu 105, Troponin T 0.035. Pertinent Medications 02/24: Nutritionally unremarkable. Height 5 ft 4 in Weight 76.657 kg [place] Body Weight (kg) 54.54 BMI 29.0 Intake Prior to Admission Good Weight change and time frame Pt states having loss weight recently without trying. Weight Status Overweight Subjective/Other Information RD consult for skin risk assessment. Pt shows no signs of concern for skin risk at the time, other than hemorroids, according to physical Assessment History notes. No available information regarding %PO intake of meals at the time. Percent of energy/protein needs met: Prescribed Cardiac Diet provides for energy/protein needs (2,230 Kcal/85 g) during LOS. Burn Absent Trauma Absent GI Symptoms Diarrhea Food Allergy No Skin Integrity/Comment Banded Hemorroid. Minimum of two criteria No Is patient on ventilator? No Is Patient Ambulatory and/or Out of Bed Yes REE-([place]-St. Jeor-ambulatory/OOB) [ [id number] [id number]] Calculation Used for Recommendations [place]-St Jeor Additional Notes Protein: 0.8-1 g/Kg; 62-77 g/ day. Fluids: 1 ml/Kcal, or as per MD. Nutrition Intervention Change Diet Order: Continue Cardiac Diet. Follow-Up By: 03/03/21 Additional Comments Continue monitoring food tolerance, %PO intake of meals , and BM.
[2021-03-05 07:59] LABS: Hematocrit 24.7 % (30.3-42.9); Hemoglobin 7.6 gm/dl (10.1-14.3); Mean Corpuscular HGB Conc 31 % (30-34); Mean Corpuscular Volume 98 fl (79-97); Platelet Count 251 K/mm3 (140-440); Red Blood Count 2.51 M/mm3 (3.65-5.03)
[2021-03-05] MEDS: APIXABAN 5 MG TAB PO SCH ×2 (11:07→20:30)
[2021-03-05] MEDS: FAMOTIDINE 20 MG TAB PO SCH (11:08)
--- NOTE | 2021-03-05 13:08 | Discharge Summary ---
Providers - Providers Date of Admission: 02/22/21 00:43 Date of discharge: 03/05/21 Attending physician: PRANAV SALINAS MD 02/22/21 02:24 Consult to Physician [CONS] Routine Comment: Consulting Provider: BEN MCQUEEN Physician Instructions: Reason For Exam: covid 02/22/21 08:21 Consult to Physician [CONS] Routine Comment: Consulting Provider: VIBHA TORO Physician Instructions: Reason For Exam: elevated troponin 02/22/21 11:13 Consult to Physician [CONS] Routine Comment: Consulting Provider: ROB OVERTON Physician Instructions: Reason For Exam: dizzines/vertigo 02/23/21 17:16 Physical Therapy Evaluation and Treat [CONS] Routine Comment: Reason For Exam: eval and treat 02/26/21 08:55 Consult to Physician [CONS] Routine Comment: Consulting Provider: DIONNE HARPER Physician Instructions: spoke with physcian Reason For Exam: intervention for bilateral pe 02/26/21 10:25 Consult to Physician [CONS] Routine Comment: Consulting Provider: CLYDE GIORDANO Physician Instructions: Reason For Exam: GI bleed at [place] 03/03/21 15:01 Consult to Case Management [CONS] Routine Services Needed at Discharge: Other Notified:: CM Comment:: anticoagulation eliqis or xarelto assistance program 03/03/21 15:02 Consult to Case Management [CONS] Routine Services Needed at Discharge: Other Notified:: CM Comment:: followup with dr. rios in 2-4 weeks, appt @ [phone] Primary care physician: [employer] Hospitalization Reason for admission: Acute hypoxic respiratory failure Condition: Critical Pertinent studies: Reviewed. Procedures: Mechanical thrombectomy of bilateral pulmonary embolism Hospital course: The patient is a 65-year-old female past medical history of bilateral pulmonary embolism (unable to tolerate anticoagulation in the setting of hemorrhagic shock secondary to [facility] requiring IVC filter placement on 01/21/2021, tobacco dependence, polysubstance abuse who presented with progressive shortness of breath and dizzy for approximately 1 to 2 days. The patient was found to be intermittently hypotensive and hypoxic at 72% requiring supplemental oxygen with the use of a Ventimask. The patient was found to be positive for COVID-19. Due to the patient remaining symptomatic from her bilateral pulmonary embolisms, the decision was made to undergo mechanical thrombectomy with vascular surgery. Jadyn blandon underwent mechanical thrombectomy of her bilateral pulmonary embolisms on 03/02/2021 and tolerated the procedure well. The patient was then restarted on a heparin drip and eventually transitioned to Eliquis 5 mg every 12 hours. The patient was monitored for approximately 24 hours to ensure no major bleeding. The patient is medically cleared for discharge home. The patient will follow-up with vascular surgery in clinic in approximately 2 weeks. Patient expresses understanding. Disposition: HOME / SELF CARE / HOMELESS Final Discharge Diagnosis (Prints w/discharge instructions): Bilateral pulmonary embolism, bilateral lower extremity DVT, COVID-19 pneumonia, acute hypoxic respiratory failure, mild pulmonary hypertension Time spent for discharge: 45 min Core Measure Documentation - Palliative Care Palliative Care/ Comfort Measures: Not Applicable - Core Measures Any of the following diagnoses?: none - VTE Discharge Requirements Deep Vein Thrombosis/Pulmonary Embolism Present on Admission: Yes Has pt received <5 days of overlap therapy or INR<2.0: Yes Anticoagulant overlap therapy prescribed at discharge: No Contraindication No Overlap Therapy order at DC: Not Indicated Exam - Constitutional Vitals: Temp Pulse Resp BP Pulse Ox 98.2 F 100 H 18 110/61 96 03/05/21 05:03 03/05/21 05:03 03/05/21 05:03 03/05/21 05:03 03/05/21 05:03 General appearance: Present: no acute distress, well-nourished - EENT Eyes: Present: PERRL, EOM intact ENT: hearing intact, clear oral mucosa - Neck Neck: Present: supple, normal ROM - Respiratory Respiratory effort: normal Respiratory: bilateral: diminished - Cardiovascular Rhythm: regular Heart Sounds: Present: S1 & S2 - Extremities Extremities: no ischemia, pulses intact, pulses symmetrical, No edema, normal temperature, normal color Peripheral Pulses: within normal limits - Abdominal General gastrointestinal: Present: soft, non-tender, non-distended, normal bowel sounds Female genitourinary: Present: deferred - Rectal Rectal Exam: deferred - Integumentary Integumentary: Present: clear, warm, dry - Musculoskeletal Musculoskeletal: strength equal bilaterally - Psychiatric Psychiatric: appropriate mood/affect, cooperative - Neurologic Neurologic: CNII-XII intact, moves all extremities - Allied Health Allied health notes reviewed: nursing Plan Activity: advance as tolerated Diet: regular Additional Instructions: The patient is a 65-year-old female past medical history of bilateral pulmonary embolism (unable to tolerate anticoagulation in the setting of hemorrhagic shock secondary to rectal bleedinghospital[facility] requiring IVC filter placement on 01/21/2021, tobacco dependence, polysubstance abuse who presented with progressive shortness of breath and dizzy for approximately 1 to 2 days. The patient was found to be intermittently hypotensive and hypoxic at 72% requiring supplemental oxygen with the use of a Ventimask. The patient was found to be positive for COVID-19. Due to the patient remaining symptomatic from her bilateral pulmonary embolisms, the decision was made to undergo mechanical thrombectomy with vascular surgery. Patient underwent mechanical thrombectomy of her bilateral pulmonary embolisms on 03/02/2021 and tolerated the procedure well. The patient was then restarted on a heparin drip and eventually transitioned to Eliquis 5 mg every 12 hours. The patient was monitored for approximately 24 hours to ensure no major bleeding. The patient is medically cleared for discharge home. The patient will follow-up with vascular surgery in clinic in approximately 2 weeks. Patient expresses understanding. Care Plan Goals: Patient is medically clear for discharge Assessment: The patient is a 65-year-old female past medical history of bilateral pulmonary embolism (unable to tolerate anticoagulation in the setting of hemorrhagic shock secondary to rectal bleedinghospitalized at [facility]) requiring IVC filter placement on 01/21/2021, tobacco dependence, polysubstance abuse who presented with progressive shortness of breath and dizzy for approximately 1 to 2 days. The patient was found to be intermittently hypotensive and hypoxic at 72% requiring supplemental oxygen with the use of a Ventimask. The patient was found to be positive for COVID-19. Due to the patient remaining symptomatic from her bilateral pulmonary embolisms, the decision was made to undergo mechanical thrombectomy with vascular surgery. Patient underwent mechanical thrombectomy of her bilateral pulmonary embolisms on 03/02/2021 and tolerated the procedure well. The patient was then restarted on a heparin drip and eventually transitioned to Eliquis 5 mg every 12 hours. The patient was monitored for approximately 24 hours to ensure no major bleeding. The patient is medically cleared for discharge home. The patient will follow-up with vascular surgery in clinic in approximately 2 weeks. Patient expresses understanding. Follow up with: DIONNE RIOS MD [Staff Physician] - 14 Days PRIMARY CARE, [Primary Care Provider] - 3-5 Days Prescriptions: AtorvaSTATin [Lipitor] 40 mg PO QHS #30 tablet Meclizine [Antivert] 25 mg PO Q8H PRN #30 tablet PRN Reason: Vertigo Apixaban [Eliquis] 5 mg PO Q12HR #60 tablet
[2021-03-05 18:07] VITALS: BP 108/65
== END 2021-03-05 20:30 | disposition home health service (06) | DRG 270 ==
LOC: ED 22:52 → IMCU 02-22 00:43 → 3A 02-22 02:34
PROVIDERS: ADMIT Hospitalist; ATTEND Student in an Organized Health Care Education/Training Program
PROC: XW033E5 Introduction of Remdesivir Anti-infective into Peripheral Vein, Percutaneous Approach, New Technology Group 5 (ICD-10-PCS; principal; 2021-02-24)
PROC: 04CP3ZZ Extirpation of Matter from Right Anterior Tibial Artery, Percutaneous Approach (ICD-10-PCS; 2021-03-02)
PROC: 047P3ZZ Dilation of Right Anterior Tibial Artery, Percutaneous Approach (ICD-10-PCS; 2021-03-02)
PROC: B41D1ZZ Fluoroscopy of Aorta and Bilateral Lower Extremity Arteries using Low Osmolar Contrast (ICD-10-PCS; 2021-03-02)
DX: I82.453 Acute embolism and thrombosis of peroneal vein, bilateral (principal); I26.99 Other pulmonary embolism without acute cor pulmonale; U07.1 COVID-19; J12.82 Pneumonia due to coronavirus disease 2019; J96.01 Acute respiratory failure with hypoxia; I21.A1 Myocardial infarction type 2; K51.00 Ulcerative (chronic) pancolitis without complications; I82.432 Acute embolism and thrombosis of left popliteal vein; Z88.8 Allergy status to other drugs, medicaments and biological substances; K64.9 Unspecified hemorrhoids; Z95.1 Presence of aortocoronary bypass graft; D64.9 Anemia, unspecified; I95.9 Hypotension, unspecified; K21.9 Gastro-esophageal reflux disease without esophagitis; I27.20 Pulmonary hypertension, unspecified
CPT/HCPCS: 36415; 37184; 70551; 71045; 71275; 80048; 80053; 80061; 82140; 82550; 82553; 82565; 83690; 83735; 84145; 84484; 85007; 85014; 85018; 85025; 85027; 85049; 85379; 85520; 85610; 85730; 86140; 86850; 86900; 86901; 87040; 93005; 93306; 93970; 94640; 94760; G0378; J3490; Q0162; C1769; C1894; J0456; J0696; J1100; J1644; J2250; J3010; J7030; J7050; Q9967; U0003

== ENCOUNTER 2021-04-03 16:00 | Inpatient (IN) | payer OTHER, SELFPAY ==
--- NOTE | 2021-04-03 16:54 | Emergency Department Report ---
HPI - HPI HPI: Room 25 The patient is a 66-year-old female present with a chief complaint bilateral DVTs. The patient had a routine follow-up appointment with her vascular surgeon today (Dr. Mittal) and during the visit the bedside ultrasound showed extensive DVT to the right groin. Patient was subsequently sent to the ED for admission, anticoagulation and further vascular management. Patient denies having any form of pain or shortness of breath. Patient just complains of feeling hungry <CUCA ALARCON - Last Filed: 04/03/21 18:44> <AURORA PITTMAN - Last Filed: 04/04/21 00:12> - General Chief Complaint: Extremity Injury, Lower Time Seen by Provider: 04/03/21 16:39 ED Past Medical Hx - Past Medical History Additional medical history: hemorrhoids that have been banded in the past per pt, HYPOKALEMIA, PE - Surgical History Additional Surgical History: Hemorrhoids banded spring 2020, IVC PLACEMENT - Family History Family history: no significant - Social History Smoking Status: Former Smoker (None x30 years) Substance Use Type: None <CUCA ALARCON - Last Filed: 04/03/21 18:44> <AURORA PITTMAN - Last Filed: 04/04/21 00:12> - Medications Home Medications: Home Medications Medication Instructions Recorded Confirmed Last Taken Type Apixaban [Eliquis] 5 mg PO Q12HR #60 tablet 03/05/21 Unknown Rx AtorvaSTATin [Lipitor] 40 mg PO QHS #30 tablet 03/05/21 Unknown Rx Ibuprofen [Motrin 800 MG tab] 800 mg PO Q8HR PRN tablet 03/05/21 Unknown Rx Meclizine [Antivert] 25 mg PO Q8H PRN #30 tablet 03/05/21 Unknown Rx ED Review of Systems ROS: Stated complaint: DVT'S,LOWER EXTREMENTIES Other details as noted in HPI Constitutional: no symptoms reported Eyes: denies: eye pain ENT: denies: throat pain Respiratory: denies: shortness of breath Cardiovascular: denies: chest pain Endocrine: no symptoms reported Gastrointestinal: denies: abdominal pain Genitourinary: denies: dysuria Musculoskeletal: denies: back pain Neurological: denies: headache <CUAC ALARCON - Last Filed: 04/03/21 18:44> ROS: Stated complaint: DVT'S,LOWER EXTREMENTIES Other details as noted in HPI <AURORA PITTMAN - Last Filed: 04/04/21 00:12> Physical Exam - Physical Exam Physical Exam: GENERAL: The patient is well-developed well-nourished female lying on stretcher not appearing to be in acute distress. [] HEENT: Normocephalic. Atraumatic. Extraocular motions are intact. Patient has moist mucous membranes. NECK: Supple. Trachea midline CHEST/LUNGS: Clear to auscultation. There is no respiratory distress noted. HEART/CARDIOVASCULAR: Regular. There is no tachycardia. There is no gallop rub or murmur. ABDOMEN: Abdomen is soft, nontender. Patient has normal bowel sounds. There is no abdominal distention. SKIN: There is no rash. There is 2-3+ bilateral lower extremity pitting edema. There is no diaphoresis. NEURO: The patient is awake, alert, and oriented. The patient is cooperative. The patient has no focal neurologic deficits. The patient has normal speech. GCS 15 MUSCULOSKELETAL: There is 2-3+ bilateral lower extremity pitting edema. There is no evidence of acute injury. <CUCA ALARCON - Last Filed: 04/03/21 18:44> - Physical Exam Vital Signs: Vital Signs 04/03/21 04/03/21 04/03/21 17:11 18:17 18:29 Pulse Rate 95 H 89 89 Respiratory 15 19 19 Rate Blood Pressure 108/69 106/72 106/72 [Right] O2 Sat by Pulse 100 98 98 Oximetry <BERHANEAURORA MCCLURE - Last Filed: 04/04/21 00:12> ED Course - Consultations Consultation #1: 04/03/21 16:57 Vascular surgery paged 04/03/21 17:[address] Mittal-request patient have CTA chest performed as well as CT abdomen pelvis to assess for occlusion of her IVC filter. Also request bilateral lower extremity Dopplers initiate heparin drip if INR subtherapeutic. Admit to the hospitalist. 04/03/21 18:[address] Mittal-recommends vitamin K 10 mg IM if repeat INR confirms coagulopathy. Then every 6 hours INR checks and start heparin drip once INR is less than 2 <CUCA ALARCON - Last Filed: 04/03/21 18:44> Vital Signs 04/03/21 04/03/21 04/03/21 17:11 18:17 18:29 Pulse Rate 95 H 89 89 Respiratory 15 19 19 Rate Blood Pressure 108/69 106/72 106/72 [Right] O2 Sat by Pulse 100 98 98 Oximetry - Reevaluation(s) Reevaluation #1: 04/03/21 23:51 Nursing team reports that they are unable to obtain 20-gauge IV access. I am able to place a left-sided external jugular 20-gauge IV in the patient's neck, without difficulty. The patient provided verbal consent for this procedure. The CT scan of the abdomen pelvis is reviewed and appreciated. The findings were discussed with the vascular surgeon Dr. Mittal. He will follow in consultation. Patient to be admitted to the medical service. 04/04/21 00:11 Dr Roy to admit to IMS I have ordered repeat PT/INR/PTT. I will defer to the inpatient team to follow this up <AURORA PITTMAN - Last Filed: 04/04/21 00:12> - EJ/Peripheral Line Neck L Time Out Performed: Yes Indications: nurses unable to establis Skin Cleansed in Sterile Fashion: No Size: 20 Dressing Placed: Tegaderm Patient Tolerated Procedure: well <AURORA PITTMAN - Last Filed: 04/04/21 00:12> ED Medical Decision Making - Lab Data Result diagrams: 04/03/21 16:56 04/03/21 16:56 - Differential Diagnosis DVTs <CUCA ALARCON - Last Filed: 04/03/21 18:44> - Lab Data Result diagrams: 04/03/21 16:56 04/03/21 16:56 - Radiology Data Radiology results: pending, report reviewed, image reviewed CT ABDOMEN AND PELVIS WITH CONTRAST INDICATION / CLINICAL INFORMATION: Suspect ed IVC filter occlusion. TECHNIQUE: Axial CT images were obtained through the abdomen and pelvis after 100 cc Omni [address] scans at this location are performed using CT dose reduction for ALARA by means of automated exposure control. COMPARISON: None available. FINDINGS: LOWER CHEST: No significant abnormality of the imaged chest. Visualized pulmonary artery branches demonstrate no definite filling defects. LIVER: No significant abnormality. GALLBLADDER: Contracted BILE DUCTS: No significant abnormality. SPLEEN: No significant abnormality. PANCREAS: No significant abnormality. ADRENALS: Minimal nodularity of left adrenal gland. Attenuation indeterminate for adenoma. RIGHT KIDNEY / URETER: Small renal cysts. LEFT KIDNEY / URETER: Small renal cysts. Partial duplication of the left renal collecting system. STOMACH / DUODENUM / SMALL BOWEL: No significant abnormality. COLON: Colon is not well distended. The descending colon and sigmoid colon demonstrate minimal nonspecific perinephric serosal fat stranding. APPENDIX: No significant abnormality. PERITONEUM: No free air or free fluid are present within the abdomen or pelvis. LYMPH NODES: No significant adenopathy. AORTA / ARTERIES: Moderate atherosclerotic calcification without acute abnormality. IVC / VEINS: IVC filter present. At the level IVC filter there is nonobstructing thrombus which propagates caudally through the left common iliac vein into the left internal iliac vein. Additionally bilaterally within the common femoral veins and bilateral superficial femoral veins, nonocclusive thrombus is demonstrated. URINARY BLADDER: No significant abnormality. REPRODUCTIVE ORGANS: No significant abnormality. ADDITIONAL ABDOMINAL/PELVIC FINDINGS: None. SKELETAL SYSTEM: No acute osseous findings. Multilevel degenerative changes of the thoracolumbar spine. Dysmorphic T10 vertebral body. IMPRESSION: 1. Thrombus extends from the IVC filter inferiorly through the left common iliac vein and internal iliac vein appears nonocclusive. 2. Additional nonocclusive thrombus within the bilateral common femoral veins and superficial femoral veins. 3. Nonspecific periserosal fat stranding of the descending colon. Signer Name: Joseph Alonso II, MD Signed: 04/03/2021 10:27 PM Workstation Name: [id number] DUPLEX DOPPLER LOWER EXTREMITY VEINS, BILATERAL INDICATION / CLINICAL INFORMATION: Pain and swelling. TECHNIQUE: Duplex doppler imaging was performed through the veins of both lower extremities using venous compression and other maneuvers. COMPARISON: None available. FINDINGS: RIGHT COMMON FEMORAL VEIN: Acute thrombus. RIGHT FEMORAL VEIN: Negative. RIGHT POPLITEAL VEIN: Negative. RIGHT CALF VEINS: Negative. LEFT COMMON FEMORAL VEIN: Negative. LEFT FEMORAL VEIN: Negative. LEFT POPLITEAL VEIN: Negative. LEFT CALF VEINS: Negative. ADDITIONAL FINDINGS: None. IMPRESSION: 1. Acute nonocclusive DVT right common femoral vein. 2. No DVT left lower extremity veins Signer Name: Stanton ruby MD Signed: 04/03/2021 8:47 PM Workstation Name: [id number] AURORA MENDEZ - Last Filed: 04/04/21 00:12> Critical care attestation.: If time is entered above; I have spent that time in minutes in the direct care of this critically ill patient, excluding procedure time. <CUCA ALARCON - Last Filed: 04/03/21 18:44> Critical care attestation.: If time is entered above; I have spent that time in minutes in the direct care of this critically ill patient, excluding procedure time. <AURORA PITTMAN - Last Filed: 04/04/21 00:12> ED Disposition <CUCA ALARCON - Last Filed: 04/03/21 18:44> Is pt being admited?: Yes Does the pt Need Aspirin: No <AURORA PITTMAN - Last Filed: 04/04/21 00:12> Clinical Impression: Supratherapeutic INR, Right leg DVT, Left femoral vein DVT, Right femoral vein DVT, Iliac vein thrombosis Disposition: ADMITTED INPATIENT Condition: Good Referrals: PRIMARY CARE, [Primary Care Provider] - 3-5 Days
[2021-04-03 17:14] LABS: Basophils # (Auto) 0.1 K/mm3 (0.0-0.1); Basophils % (Auto) 0.4 % (0.0-1.8); Eosinophils % (Auto) 0.1 % (0.0-4.3); Lymphocytes # (Auto) 1.7 K/mm3 (1.2-5.4); Lymphocytes % (Auto) 10.1 % (13.4-35.0); Mean Corpuscular HGB Conc 30 % (30-34); Mean Corpuscular Volume 91 fl (79-97); Monocytes # (Auto) 0.8 K/mm3 (0.0-0.8); Monocytes % (Auto) 4.7 % (0.0-7.3); Platelet Count 745 K/mm3 (140-440); Red Blood Count 3.15 M/mm3 (3.65-5.03)
[2021-04-03 17:34] LABS: Blood Urea Nitrogen 8 mg/dL (7-17)
[2021-04-03 17:40] LABS: Hemolysis Index 24
[2021-04-03 17:42] LABS: BUN/Creatinine Ratio 20
[2021-04-03 18:01] LABS: INR 14.52 (0.87-1.13)
[2021-04-03 18:02] LABS: Partial Thromboplastin Time 112.2 Sec. (24.2-36.6)
[2021-04-03 18:04] LABS: Hematocrit 28.7 % (30.3-42.9); Hemoglobin 8.5 gm/dl (10.1-14.3); Red Cell Distribution Width 21.3 % (13.2-15.2)
[2021-04-03 18:34] LABS: INR 14.7 (0.87-1.13)
[2021-04-03 18:35] LABS: Partial Thromboplastin Time 119.3 Sec. (24.2-36.6)
[2021-04-03] MEDS ORDERED: PHYTONADIONE 10 MG/1 ML (ADULT ONLY)*INJECTION IM ONE (18:44)
--- NOTE | 2021-04-03 21:52 | Vascular Lab Report ---
DUPLEX DOPPLER LOWER EXTREMITY VEINS, BILATERAL INDICATION / CLINICAL INFORMATION: Pain and swelling. TECHNIQUE: Duplex doppler imaging was performed through the veins of both lower extremities using venous devonte praveen and other maneuvers. COMPARISON: None available. FINDINGS: RIGHT COMMON FEMORAL VEIN: Acute thrombus. RIGHT FEMORAL VEIN: Negative. RIGHT POPLITEAL VEIN: Negative. RIGHT CALF VEINS: Negative. LEFT COMMON FEMORAL VEIN: Negative. LEFT FEMORAL VEIN: Negative. LEFT POPLITEAL VEIN: Negative. LEFT CALF VEINS: Negative. ADDITIONAL FINDINGS: None. IMPRESSION: 1. Acute nonocclusive DVT right common femoral vein. 2. No DVT left lower extremity veins Signer Name: Stanton Heaton MD Signed: 04/03/2021 9:47 PM Workstation Name: [id number]
--- NOTE | 2021-04-03 22:59 | Event Note ---
Date: 04/03/21 66 year old female with PE and DVT at [facility] with hemorrhoidal bleeding with anticoagulation requiring IVC filter placement. Patient then had COVID, and her SOB worsened. She presented to [facility] with SOB with oxygen dependence and PE. Ultimately underwent PE thrombectomy and SOB improved. Then was discharged, had no anticoagulation for 1 week, then started on warfarin and levels not being checked for 3 weeks. Presented to [facility] and had severe lower extremity swelling. RLE DVT study performed at bedside demonstrating CFV thrombus. Sent to ER for severe swelling with worsening DVT (DVT not previously present). Now INR 14.5 requiring reversal and transition to heparin drip. Reviewed ultrasound which demonstrating right common femoral vein thrombus and left superficial femoral vein thrombus (clearly listed on instrumentation supervisor report and images, unclear why not listed on report). Recommend IM Vit K. Recommend transition to heparin drip once INR less than 2. CT PA cannot be obtained due to various IV issues. Recommend CT abdomen and pelvis with contrast to evaluate IVC filter for thrombus and iliac veins.
--- NOTE | 2021-04-03 23:31 | Cat Scan Report ---
CT ABDOMEN AND PELVIS WITH CONTRAST INDICATION / CLINICAL INFORMATION: Suspected IVC filter occlusion. TECHNIQUE: Axial CT images were obtained through the abdomen and pelvis after 100 cc Omni [address] All [address] scans at this location are performed using CT dose reduction for ALARA by means of auto mated exposure control. COMPARISON: None available. FINDINGS: LOWER CHEST: No significant abnormality of the imaged chest. Visualized pulmonary artery branches dem onstrate no definite filling defects. LIVER: No significant abnormality. GALLBLADDER: Contracted BILE DUCTS: No significant abnormality. SPLEEN: No significant abnormality. PANCREAS: No significant abnormality. ADRENALS: Minimal nodularity of left adrenal gland. Attenuation indeterminate for adenoma. RIGHT KIDNEY / URETER: Small renal cysts. LEFT KIDNEY / URETER: Small renal cysts. Partial duplication of the left renal collecting system. STOMACH / DUODENUM / SMALL BOWEL: No significant abnormality. COLON: Colon is not well distended. The descending colon and sigmoid colon demonstrate minimal nonspe cific perinephric serosal fat stranding. APPENDIX: No significant abnormality. PERITONEUM: No free air or free fluid are present within the abdomen or pelvis. LYMPH NODES: No significant adenopathy. AORTA / ARTERIES: Moderate atherosclerotic calcification without acute abnormality. IVC / VEINS: IVC filter present. At the level IVC filter there is nonobstructing thrombus which propa payan caudally through the left common iliac vein into the left internal iliac vein. Additionally se aterally within the common femoral veins and bilateral superficial femoral veins, nonocclusive thromb us is demonstrated. URINARY BLADDER: No significant abnormality. REPRODUCTIVE ORGANS: No significant abnormality. ADDITIONAL ABDOMINAL/PELVIC FINDINGS: None. SKELETAL SYSTEM: No acute osseous findings. Multilevel degenerative changes of the thoracolumbar spin e. Dysmorphic T10 vertebral body. IMPRESSION: 1. Thrombus extends from the IVC filter inferiorly through the left common iliac vein and internal il iac vein appears nonocclusive. 2. Additional nonocclusive thrombus within the bilateral common femoral veins and superficial femoral veins. 3. Nonspecific periserosal fat stranding of the descending colon. Signer Name: Joseph Alonso II, MD Signed: 04/03/2021 11:27 PM Workstation Name: [id number]
[2021-04-04] MEDS ORDERED: ACETAMINOPHEN 325 MG TAB PO PRN (00:21)
[2021-04-04] MEDS ORDERED: PHYTONADIONE 1 MG/0.5 ML *NICU*INJ IM ONE (00:24)
--- NOTE | 2021-04-04 00:29 | History and Physical Report ---
History of Present Illness Date of examination: 04/04/21 Date of admission: 04/04/21 Chief complaint: Bilateral DVT Supratherapeutic INR History of present illness: 66-year-old female present with a chief complaint bilateral DVTs.Patient then had COVID, and her SOB worsened. Patient admitted to [facility] with SOB with oxygen dependence and PE. Ultimately underwent PE thrombectomy and SOB improved. Then patient was discharged, had no anticoagulation for 1 week, then started on warfarin and levels not being checked for 3 weeks. Patient complained of severe lower extremity swelling. RLE DVT study performed at bedside demonstrating CFV thrombus. Patient was sent to ER for severe swelling with worsening DVT (DVT not previously present). Now INR 14.5 . Case discussed with vascular surgeon who recommended to give vitamin K 10 mg IM x1 dose and serial PT/INR and he will see the patient in the morning for further evaluation and treatment Past History Past Medical History: DVT, other (PE hemorrhoids that have been banded in the past per pt, HYPOKALEMIA, PE) Past Surgical History: Other (Hemorrhoids banded spring 2020, IVC PLACEMENT) Social history: other (Former smoker) Medications and Allergies Allergies Allergy/AdvReac Type Severity Reaction Status Date / Time lisinopril Allergy Severe Anaphylaxis Verified 04/03/21 16:26 Home Medications Medication Instructions Recorded Confirmed Last Taken Type Apixaban [Eliquis] 5 mg PO Q12HR #60 tablet 03/05/21 Unknown Rx AtorvaSTATin [Lipitor] 40 mg PO QHS #30 tablet 03/05/21 Unknown Rx Ibuprofen [Motrin 800 MG tab] 800 mg PO Q8HR PRN tablet 03/05/21 Unknown Rx Meclizine [Antivert] 25 mg PO Q8H PRN #30 tablet 03/05/21 Unknown Rx Active Meds: Active Medications Acetaminophen (Acetaminophen 325 Mg Tab) 650 mg PO Q4H PRN PRN Reason: Pain MILD(1-3)/Fever >100.5/SALAZAR Albuterol (Albuterol 2.5 Mg/3 Ml Nebu) 2.5 mg IH Q3HRT PRN PRN Reason: Shortness Of Breath Albuterol/Ipratropium (Ipratropium/Albuterol Sulfate 3 Ml Ampul.Neb) 1 ampul IH Q6HRT [facility] Atorvastatin Calcium (Atorvastatin 40 Mg Tab) 40 mg PO QHS [facility] Famotidine (Famotidine 20 Mg Tab) 20 mg PO BID [facility] Hydromorphone HCl (Hydromorphone 1 Mg/1 Ml Inj) 0.5 mg IV Q3H PRN PRN Reason: Pain , Severe (7-10) Ibuprofen (Ibuprofen 800 Mg Tab) 800 mg PO Q8HR PRN PRN Reason: Pain, Moderate (4-6) Meclizine HCl (Meclizine 25 Mg Tab) 25 mg PO Q8H PRN PRN Reason: Vertigo Morphine Sulfate (Morphine 2 Mg/1 Ml Inj) 2 mg IV Q4H PRN PRN Reason: Pain, Moderate (4-6) Ondansetron HCl (Ondansetron 4 Mg/2 Ml Inj) 4 mg IV Q8H PRN PRN Reason: Nausea And Vomiting Sodium Chloride (Sodium Chloride 0.9% 10 Ml Flush Syringe) 10 ml IV BID [facility] Sodium Chloride (Sodium Chloride 0.9% 10 Ml Flush Syringe) 10 ml IV PRN PRN PRN Reason: LINE FLUSH Review of Systems Constitutional: other (Bilateral lower extremity swelling . Hungry. DVT bilateral lower extremity) Exam - Constitutional Vitals: Temp Pulse Resp BP Pulse Ox 89 19 106/72 98 04/03/21 18:29 04/03/21 18:29 04/03/21 18:29 04/03/21 18:29 General appearance: Present: no acute distress, well-nourished - EENT Eyes: Present: PERRL ENT: hearing intact, clear oral mucosa - Neck Neck: Present: supple, normal ROM - Respiratory Respiratory effort: normal Respiratory: bilateral: diminished - Cardiovascular Heart Sounds: Present: S1 & S2. Absent: rub, click - Extremities Extremities: pulses symmetrical Extremity abnormal: edema, other (Bilateral lower extremity swelling) Peripheral Pulses: within normal limits - Abdominal General gastrointestinal: Present: soft, non-tender, non-distended, normal bowel sounds Female genitourinary: Present: normal - Integumentary Integumentary: Present: clear, warm, dry - Musculoskeletal Musculoskeletal: gait normal, strength equal bilaterally - Psychiatric Psychiatric: appropriate mood/affect, intact judgment & insight - Neurologic Neurologic: CNII-XII intact, moves all extremities Results - Labs CBC & Chem 7: 04/03/21 16:56 04/03/21 16:56 Labs: Laboratory Last Values WBC 16.8 K/mm3 (4.5-11.0) H 04/03/21 16:56 RBC 3.15 M/mm3 (3.65-5.03) L 04/03/21 16:56 Hgb 8.5 gm/dl (10.1-14.3) L 04/03/21 16:56 Hct 28.7 % (30.3-42.9) L 04/03/21 16:56 MCV 91 fl (79-97) 04/03/21 16:56 MCH 27 pg (28-32) L 04/03/21 16:56 MCHC 30 % (30-34) 04/03/21 16:56 RDW 21.3 % (13.2-15.2) H 04/03/21 16:56 Plt Count 745 K/mm3 (140-440) H 04/03/21 16:56 Lymph % (Auto) 10.1 % (13.4-35.0) L 04/03/21 16:56 Hayes % (Auto) 4.7 % (0.0-7.3) 04/03/21 16:56 Eos % (Auto) 0.1 % (0.0-4.3) 04/03/21 16:56 Baso % (Auto) 0.4 % (0.0-1.8) 04/03/21 16:56 Lymph # (Auto) 1.7 K/mm3 (1.2-5.4) 04/03/21 16:56 Hayes # (Auto) 0.8 K/mm3 (0.0-0.8) 04/03/21 16:56 Eos # (Auto) 0.0 K/mm3 (0.0-0.4) 04/03/21 16:56 Baso # (Auto) 0.1 K/mm3 (0.0-0.1) 04/03/21 16:56 Seg Neutrophils % 84.7 % (40.0-70.0) H 04/03/21 16:56 Seg Neutrophils # 14.2 K/mm3 (1.8-7.7) H 04/03/21 16:56 PT 114.9 Sec. (12.2-14.9) H 04/03/21 18:11 INR 14.70 (0.87-1.13) H* 04/03/21 18:11 APTT 119.3 Sec. (24.2-36.6) H* 04/03/21 18:11 Sodium 140 mmol/L (137-145) 04/03/21 16:56 Potassium 3.5 mmol/L (3.6-5.0) L 04/03/21 16:56 Chloride 107.9 mmol/L (98-107) H 04/03/21 16:56 Carbon Dioxide 22 mmol/L (22-30) 04/03/21 16:56 Anion Gap 14 mmol/L 04/03/21 16:56 BUN 8 mg/dL (7-17) 04/03/21 16:56 Creatinine 0.4 mg/dL (0.6-1.2) L 04/03/21 16:56 Estimated GFR > 60 ml/min 04/03/21 16:56 BUN/Creatinine Ratio 20 % 04/03/21 16:56 Glucose 80 mg/dL (65-100) 04/03/21 16:56 Calcium 11.0 mg/dL (8.4-10.2) H 04/03/21 16:56 - Imaging and Cardiology CT scan - abdomen: report reviewed Assessment and Plan VTE prophylaxis?: Mechanical Plan of care discussed with patient/family: Yes - Patient Problems (1) Iliac vein thrombosis Current Visit: Yes Status: Acute Plan to address problem: Admit the patient to the medical telemetry. Oxygen by nasal cannula 3 to per minute. DuoNeb by nebulizer every 4 hours. Patient PT is 114.9 and INR 14.70. Patient is given vitamin K 10 mg Im x1 dose. We do the serial PT/INR. We will transition to heparin drip when the INR less than 2. consult Dr. Hoang Gilman for further evaluation and recommendation , actually patient was seen and evaluated by Dr. Kyrie Gilman (2) Left femoral vein DVT Current Visit: Yes Status: Acute Plan to address problem: Oxygen by nasal cannula 3 to per minute. DuoNeb by nebulizer every 4 hours. Patient PT is 114.9 and INR 14.70. Patient is given vitamin K 10 mg Im x1 dose. We do the serial PT/INR. We will transition to heparin drip when the INR less than 2. consult Dr. Hoang Gilman for further evaluation and recommendation , actually patient was seen and evaluated by Dr. Kyrie Gilman (3) Right femoral vein DVT Current Visit: Yes Status: Acute Plan to address problem: Oxygen by nasal cannula 3 to per minute. DuoNeb by nebulizer every 4 hours. Patient PT is 114.9 and INR 14.70. Patient is given vitamin K 10 mg Im x1 dose. We do the serial PT/INR. We will transition to heparin drip when the INR less than 2. consult Dr. Hoang Gilman for further evaluation and recommendation , actually patient was seen and evaluated by Dr. Kyrie Gilman (4) Supratherapeutic INR Current Visit: Yes Status: Acute Plan to address problem: Hold Eliquis. Patient is given vitamin K 10 mg Im x1 dose. We do the serial PT/INR. We will transition to heparin drip when the INR less than 2. consult Dr. Hoang Gilman for further evaluation and recommendation , actually patient was seen and evaluated by Dr. Kyrie Gilman (5) Pulmonary embolism Current Visit: Yes Status: Acute Plan to address problem: Patient has history of pulmonary embolism. Status post thrombectomy. Patient now with supratherapeutic INR. Patient is given vitamin K 10 mg Im x1 dose. We do the serial PT/INR. We will transition to heparin drip when the INR less than 2. consult Dr. Hoang Gilman for further evaluation and recommendation , actually patient was seen and evaluated by Dr. Kyrie Gilman (6) DVT prophylaxis Current Visit: No Status: Acute Plan to address problem: Patient has supratherapeutic INR. Pepcid 20 mg p.o. twice daily for GI prophylaxis. Patient is a full code
[2021-04-04] MEDS ORDERED: MECLIZINE 25 MG TAB PO PRN (01:00)
[2021-04-04] MEDS ORDERED: PHYTONADIONE 10 MG/1 ML (ADULT ONLY)*INJECTION IM ONE ×2 (01:00→16:42)
[2021-04-04] MEDS ORDERED: ONDANSETRON 4 MG/2 ML INJ IV PRN (01:00)
[2021-04-04] MEDS ORDERED: IBUPROFEN 800 MG TAB PO PRN (01:00)
[2021-04-04] MEDS ORDERED: MORPHINE 2 MG/1 ML INJ IV PRN (01:00)
[2021-04-04] MEDS ORDERED: HYDROmorphone 1 MG/1 ML INJ IV PRN (01:00)
[2021-04-04] MEDS ORDERED: ALBUTEROL 2.5 MG/3 ML NEBU IH PRN (02:00)
[2021-04-04] MEDS: IPRATROPIUM/ALBUTEROL SULFATE 3 ML AMPUL.NEB IH SCH ×4 (02:20→20:36)
[2021-04-04] MEDS: FAMOTIDINE 20 MG TAB PO SCH ×2 (10:38→21:27)
[2021-04-04 14:23] LABS: INR 5.42 (0.87-1.13)
--- NOTE | 2021-04-04 17:48 | Consultation ---
History of Present Illness - Reason for Consult Consult date: 04/04/21 DVT Requesting physician: CUCA ALARCON - History of Present Illness 66-year-old female present with a chief complaint bilateral DVTs.Patient then had COVID, and her SOB worsened. Patient admitted to [facility] with SOB with oxygen dependence and PE. Ultimately underwent PE thrombectomy and SOB improved. Then patient was discharged, had no anticoagulation for 1 week, then started on warfarin and levels not being checked for 3 weeks. Patient complained of severe lower extremity swelling. RLE DVT study performed at bedside demonstrating CFV thrombus. Patient was sent to ER for severe swelling with worsening DVT (DVT not previously present). Now INR 14.5 . Case discussed with vascular surgeon who recommended to give vitamin K 10 mg IM x1 dose and serial PT/INR and he will see the patient in the morning for further evaluation and treatment Vascular consulted. 66 year old female with PE and DVT at [facility] with hemorrhoidal bleeding with anticoagulation requiring IVC filter placement. Patient then had COVID, and her SOB worsened. She presented to [facility] with SOB with oxygen dependence and PE. Ultimately underwent PE thrombectomy and SOB improved. Then was discharged, had no anticoagulation for 1 week, then started on warfarin and levels not being checked for 3 weeks. Presented to [facility] and had severe lower extremity swelling. RLE DVT study performed at bedside demonstrating CFV thromb us. Sent to ER for severe swelling with worsening DVT (DVT not previously present). Now INR 14.5 requiring reversal and transition to heparin drip. Reviewed ultrasound which demonstrating right common femoral vein thrombus and left superficial femoral vein thrombus (clearly listed on boilermaker central steam plant report and images, unclear why not listed on report). Recommend IM Vit K. Recommend transition to heparin drip once INR less than 2. CT PA cannot be obtained due to various IV issues. Recommend CT abdomen and pelvis with contrast to evaluate IVC filter for thrombus and iliac veins. Past History Past Medical History: DVT, other (PE hemorrhoids that have been banded in the past per pt, HYPOKALEMIA, PE) Past Surgical History: Other (Hemorrhoids banded spring 2020, IVC PLACEMENT) Social history: other (Former smoker) Medications and Allergies Allergies Allergy/AdvReac Type Severity Reaction Status Date / Time lisinopril Allergy Severe Anaphylaxis Verified 04/03/21 16:26 Home Medications Medication Instructions Recorded Confirmed Last Taken Type Apixaban [Eliquis] 5 mg PO Q12HR #60 tablet 03/05/21 Unknown Rx AtorvaSTATin [Lipitor] 40 mg PO QHS #30 tablet 03/05/21 Unknown Rx Ibuprofen [Motrin 800 MG tab] 800 mg PO Q8HR PRN tablet 03/05/21 Unknown Rx Meclizine [Antivert] 25 mg PO Q8H PRN #30 tablet 03/05/21 Unknown Rx Active Meds: Active Medications Acetaminophen (Acetaminophen 325 Mg Tab) 650 mg PO Q4H PRN PRN Reason: Pain MILD(1-3)/Fever >100.5/SALAZAR Albuterol (Albuterol 2.5 Mg/3 Ml Nebu) 2.5 mg IH Q3HRT PRN PRN Reason: Shortness Of Breath Albuterol/Ipratropium (Ipratropium/Albuterol Sulfate 3 Ml Ampul.Neb) 1 ampul IH Q6HRT [facility] Last Admin: 04/04/21 13:54 Dose: 1 ampul Atorvastatin Calcium (Atorvastatin 40 Mg Tab) 40 mg PO QHS [facility] Famotidine (Famotidine 20 Mg Tab) 20 mg PO BID [facility] Last Admin: 04/04/21 10:38 Dose: 20 mg Hydromorphone HCl (Hydromorphone 1 Mg/1 Ml Inj) 0.5 mg IV Q3H PRN PRN Reason: Pain , Severe (7-10) Ibuprofen (Ibuprofen 800 Mg Tab) 800 mg PO Q8HR PRN PRN Reason: Pain, Moderate (4-6) Meclizine HCl (Meclizine 25 Mg Tab) 25 mg PO Q8H PRN PRN Reason: Vertigo Morphine Sulfate (Morphine 2 Mg/1 Ml Inj) 2 mg IV Q4H PRN PRN Reason: Pain, Moderate (4-6) Ondansetron HCl (Ondansetron 4 Mg/2 Ml Inj) 4 mg IV Q8H PRN PRN Reason: Nausea And Vomiting Sodium Chloride (Sodium Chloride 0.9% 10 Ml Flush Syringe) 10 ml IV BID [facility] Last Admin: 04/04/21 10:38 Dose: 10 ml Sodium Chloride (Sodium Chloride 0.9% 10 Ml Flush Syringe) 10 ml IV PRN PRN PRN Reason: LINE FLUSH Review of Systems All systems: negative (see HPI) Exam - Constitutional Vitals: Temp Pulse Resp BP Pulse Ox 97.9 F 105 H 18 106/63 97 04/04/21 10:05 04/04/21 13:54 04/04/21 13:54 04/04/21 10:05 04/04/21 10:05 General appearance: Present: mild distress (Complains of diarrhea and bilateral lower extremity swelling and pain) - EENT Eyes: Present: EOM intact ENT: hearing intact - Respiratory Respiratory effort: normal - Extremities Extremity abnormal: edema (3+ edema bilateral) Peripheral Pulses: within normal limits - Abdominal General gastrointestinal: Present: soft, non-tender - Psychiatric Psychiatric: appropriate mood/affect, cooperative Results - Labs CBC & Chem 7: 04/03/21 16:56 04/03/21 16:56 Labs: Abnormal lab results 04/03/21 04/03/21 04/03/21 Range/Units 16:56 16:56 18:11 WBC 16.8 H (4.5-11.0) K/mm3 RBC 3.15 L (3.65-5.03) M/mm3 Hgb 8.5 L (10.1-14.3) gm/dl Hct 28.7 L (30.3-42.9) % MCH 27 L (28-32) pg RDW 21.3 H (13.2-15.2) % Plt Count 745 H (140-440) K/mm3 Lymph % (Auto) 10.1 L (13.4-35.0) % Seg Neutrophils % 84.7 H (40.0-70.0) % Seg Neutrophils # 14.2 H (1.8-7.7) K/mm3 PT 113.8 H 114.9 H (12.2-14.9) Sec. INR 14.52 H* 14.70 H* (0.87-1.13) APTT 112.2 H* 119.3 H* (24.2-36.6) Sec. 04/04/21 Range/Units 13:53 WBC (4.5-11.0) K/mm3 RBC (3.65-5.03) M/mm3 Hgb (10.1-14.3) gm/dl Hct (30.3-42.9) % MCH (28-32) pg RDW (13.2-15.2) % Plt Count (140-440) K/mm3 Lymph % (Auto) (13.4-35.0) % Seg Neutrophils % (40.0-70.0) % Seg Neutrophils # (1.8-7.7) K/mm3 PT 53.0 H (12.2-14.9) Sec. INR 5.42 H* (0.87-1.13) APTT (24.2-36.6) Sec. - Imaging and Cardiology CT scan - abdomen: report reviewed, image reviewed Assessment and Plan 66-year-old female with history of thromboembolic events and DVT and pulmonary embolism who presents with caval iliofemoral bilateral DVTs from IVC filter. Patient has 3-4+ swelling of the lower extremities and pain and swelling of the lower extremities and requires thrombectomy. INR supratherapeutic and should be corrected. This was discussed with hospitalist. INR decreased from 14.5 to approximately 5. Another 10 mg vitamin K ordered. Once INR less than 2, recommend heparin drip. Hopefully this can be performed before Tuesday if so, plan for procedure on Tuesday. Risks, benefits, alternatives discussed, patient understands procedure. Patient also has had chronic diarrhea for 6 months and this is affecting her lifestyle severely. She was told she had "lower GI colitis" after a colonoscopy at [facility]. She will need a gastroenterology consult for assessment of this severe diarrhea.
--- NOTE | 2021-04-04 20:39 | Event Note ---
Date: 04/04/21 Brief progress notes: Chart reviewed, patient interviewed and examined. Patient is mentating normally, alert and oriented. Vital signs stable. Afebrile. Patient denies dyspnea, chest pains, palpitations or lightheadedness. Her main complaint is chronic diarrhea which started few months ago initially bloody but then multiple liquid stools daily. She is not able to ambulate much due to extensive extremity swellings. On the 3 extremities other than the left upper arm swollen. She is not complaining of any pain. INR is coming down since given vitamin K earlier today. Discussed with Dr. Mittal, is planning for thrombectomy on Tuesday. Once INR reaches 2.0 heparin infusion will be initiated. WBC 16, K3.5 and normal creatinine. Etiology of leukocytosis is unclear, could be reactive. Unclear if she was taking steroids. Will order UA, blood cultures and procalcitonin. Will follow. Discussed with the patient.
[2021-04-04 21:07] LABS: INR 3.9 (0.87-1.13)
[2021-04-04 23:38] LABS: INR 3.44 (0.87-1.13)
[2021-04-05 01:33] LABS: Bacteria,Urine 1+ /HPF (Negative); Bilirubin,Urine NEG (Negative); Blood,Urine LG (Negative); Color,Urine Red (Yellow); Mucus,Urine 3+ /HPF; Urobilinogen,Urine < 2.0 mg/dL (<2.0)
[2021-04-05] MEDS: IPRATROPIUM/ALBUTEROL SULFATE 3 ML AMPUL.NEB IH SCH ×4 (01:49→21:16)
[2021-04-05 01:50] LABS: Protein,Urine >500 mg/dL (Negative); RBC,Urine > 182.0 /HPF (0.0-6.0)
[2021-04-05 05:52] LABS: Basophils # (Auto) 0.1 K/mm3 (0.0-0.1); Basophils % (Auto) 0.5 % (0.0-1.8); Eosinophils # (Auto) 0.1 K/mm3 (0.0-0.4); Eosinophils % (Auto) 0.5 % (0.0-4.3); Hemoglobin 7.4 gm/dl (10.1-14.3); Lymphocytes # (Auto) 2.2 K/mm3 (1.2-5.4); Lymphocytes % (Auto) 13.7 % (13.4-35.0); Mean Corpuscular HGB Conc 31 % (30-34); Mean Corpuscular Volume 91 fl (79-97); Monocytes % (Auto) 6.2 % (0.0-7.3); Platelet Count 701 K/mm3 (140-440); Red Blood Count 2.63 M/mm3 (3.65-5.03)
[2021-04-05 06:00] LABS: Red Cell Distribution Width 21.1 % (13.2-15.2)
[2021-04-05 06:01] LABS: INR 2.4 (0.87-1.13)
[2021-04-05 06:02] LABS: Albumin 1.7 g/dL (3.9-5); Blood Urea Nitrogen 7 mg/dL (7-17); Calcium 7.5 mg/dL (8.4-10.2); Hemolysis Index 0
[2021-04-05 06:03] LABS: Alanine Aminotransferase < 5 units/L (7-56); BUN/Creatinine Ratio 18
[2021-04-05] MEDS ORDERED: HEPARIN/ 0.45% NACL DRIP 25,000 UNIT/500 ML BAG IV SCH (09:00)
[2021-04-05] MEDS ORDERED: POTASSIUM CHLORIDE ER 20 MEQ TAB PO ONE ×2 (09:00→12:00)
[2021-04-05] MEDS ORDERED: SODIUM CHLORIDE 0.9% 500 ML 500 ML IV NR (09:00)
[2021-04-05 11:19] LABS: Hematocrit 24.6 % (30.3-42.9); Hemoglobin 7.6 gm/dl (10.1-14.3)
[2021-04-05] MEDS ORDERED: PHYTONADIONE 5 MG/0.5 ML *ORAL LIQUID PO ONE (11:28)
[2021-04-05 11:30] LABS: INR 1.83 (0.87-1.13)
--- NOTE | 2021-04-05 12:51 | Consultation ---
DATE OF CONSULTATION: 04/05/2021 REFERRING PHYSICIAN: Dr. Gio Roy. INDICATION: Colitis. HISTORY OF PRESENT ILLNESS: The patient is a 66-year-old black female with history of DVT, thrombotic events, who recently had COVID, now being seen by GI for colitis. The patient had a colonoscopy in 01/2021 with the possibility of IBD versus ischemic, which was most likely versus infectious. The patient was treated conservatively. The patient reports that she has had loose stools, initially bloody from hemorrhoids over the last 6 months. She reports only complaint of every time she eats, everything ____ through her. She denies any upper GI symptoms including nausea, vomiting. No weight loss. No other specific complaints. PAST MEDICAL HISTORY: 1. Hemorrhoids. 2. DVT. MEDICATIONS: Reviewed and updated in chart. ALLERGIES: LISINOPRIL. SOCIAL HISTORY: Denies alcohol, tobacco or drug abuse. FAMILY HISTORY: Negative for colon cancer, IBD or liver disease. REVIEW OF SYSTEMS: GENERAL: Reports some weakness. HEENT: Denies visual complaints or tinnitus. PULMONARY: No shortness of breath, chest pain. GASTROINTESTINAL: Reports loose stool. All points of 13-point review of system otherwise negative. PHYSICAL EXAMINATION: VITAL SIGNS: Temperature of 99.0, pulse 112, respirations 20, blood pressure 102/60. GENERAL: Fairly nourished female, in no acute distress. HEENT: Pupils round, reactive. PULMONARY: Clear to auscultation bilaterally. CARDIOVASCULAR: Regular rate and rhythm. Normal S1, S2. ABDOMEN: Positive bowel sounds, soft. SKIN: No obvious rashes. LABORATORY DATA: Pertinent for white count of 16, hemoglobin and hematocrit 7.4 and 24, platelet count of 701. INR of 2.4. Chem-7 stable. LFTs stable. DIAGNOSTIC DATA: CT scan abdomen and pelvis with contrast on 04/03/2021 showed no signs of severe active colitis at this time. ASSESSMENT: A 66-year-old female with ____ thromboembolic issues to be managed by Interventional Radiology and Vascular services, recent history of colitis on colonoscopy in 01/2021, treated conservatively, now presents for recurrent clot issues, but Gastroenterology is consulted as the patient has 6 months of loose stools. My suspicion is the patient's colitis from the end of last year for the most part is healed. She had a CT scan here, which showed no severe colitis. Management as noted below. PLAN: 1. We will review CT scan. 2. We will start Questran 4 grams p.o. b.i.d. 3. Diet as tolerated. 4. No plans for colonoscopy at this time. 5. Vascular and clot issues per primary team and IR. 6. We will follow further recommendation based on progress and results of the above. TID: [id number] RECEIPT: [id number] ROXANN/TYRON/ZOILA
[2021-04-05] MEDS: CHOLESTYRAMINE (WITH SUGAR) 4 GM PACKET PO SCH ×2 (13:30→22:05)
[2021-04-05] MEDS: FAMOTIDINE 20 MG TAB PO SCH ×2 (13:31→22:05)
[2021-04-05] MEDS ORDERED: HEPARIN 10,000 UNITS/10 ML VIAL IV PRN (15:00)
[2021-04-05 18:31] LABS: INR 1.49 (0.87-1.13)
--- NOTE | 2021-04-05 18:35 | Progress Note ---
Assessment and Plan Assessment and plan: 66-year-old female present with a chief complaint bilateral DVTs.Patient then had COVID, and her SOB worsened. Patient admitted to [facility] with SOB with oxygen dependence and PE. Ultimately underwent PE thrombectomy and SOB improved. Then patient was discharged, had no anticoagulation for 1 week, then started on warfarin and levels not being checked for 3 weeks. Patient complained of severe lower extremity swelling. RLE DVT study performed at bedside demonstrating CFV thrombus. Patient was sent to ER for severe swelling with DVT (DVT not previously present). Now INR 14.5 . Case discussed with vascular surgeon, Dr. Mittal who recommended to give vitamin K 10 mg IM x1 dose and serial PT/INR. He recommends starting heparin infusion once INR drops to 2.0 and will need a thrombectomy. Dr. Mittal reviewed ultrasound which demonstrating right common femoral vein thrombus and left superficial femoral vein thrombus (clearly listed on sled maker report and images, unclear why not listed on report). (1) Iliac, common femoral and the superficial femoral thrombosis Current Visit: Yes Status: Acute Plan to address problem: Admit the patient to the medical telemetry. Patient PT is 114.9 and INR 14.70. Consulted vascular surgeon, Dr. Santamaria. Patient is given vitamin K 10 mg Im x1 dose. We do the serial PT/INR. Heparin infusion initiated for INR 2.4 as it is rapidly declining. Dr. Armstrong plans for thrombectomy on Tuesday, 04/06. Hemodynamically stable. Afebrile. (2) chronic anemia Current Visit: Yes Status: Acute Plan to address problem: Could be related to large clot burden. Will monitor and transfuse as needed. No evidence of bruising or abnormal bleeding with a supratherapeutic INR. (3) chronic diarrhea Current Visit: Yes Status: Acute Plan to address problem: Patient reports chronic diarrhea since several months which initially started with some hematochezia according to patient. Recently frequent as she is unable to keep up getting in time to the bathroom. Her mobility is also significantly impaired due to severe low bilateral lower extremity edema from DVT. Patient did not get any GI work-up for this. Consulted GI. Currently no abdominal pains or nausea. Tolerating diet. (4) Supratherapeutic INR Current Visit: Yes Status: Acute Plan to address problem: Hold Eliquis. Patient is given vitamin K 10 mg Im x1 dose. We do the serial PT/INR. We will transition to heparin drip when the INR less than 2. Dr. Mittal, vascular surgeon consulted and is evaluating/following. Eventually, patient will be discharged home on Xarelto, as per vascular surgery. (5) recent pulmonary embolism Current Visit: Yes Status: Acute Plan to address problem: Patient has history of pulmonary embolism. Status post thrombectomy. Patient now with supratherapeutic INR. Patient is given vitamin K 10 mg Im x1 dose. We do the serial PT/INR. We will transition to heparin drip when the INR less than 2. Currently patient is on room air. (6) leukocytosis, UTI UA consistent with UTI. Will start Rocephin and monitor. Blood cultures negative to date. DVT prophylaxis Current Visit: No Status: Acute Plan to address problem: On heparin infusion. Pepcid 20 mg p.o. twice daily for GI prophylaxis. Patient is a full code History Interval history: Patient remains hemodynamically stable other than mild sinus tachycardia. Remains on room air. Patient denies headaches chest pains, palpitations, dizziness, lightheadedness, chills, abdominal pains or significant lower extremity pains. Her only complaint is frequent diarrhea which is chronic. INR dropped to 2.4 today and started on after infusion anticipating further INR decline rapidly. No bruising or abnormal bleeding either. Hospitalist Physical - Constitutional Vitals: Temp Pulse Resp BP Pulse Ox 98.3 F 105 H 16 96/60 98 04/05/21 12:00 04/05/21 15:22 04/05/21 15:22 04/05/21 12:00 04/05/21 15:00 General appearance: Present: obese, other (Alert and oriented) - EENT Eyes: Present: PERRL, EOM intact ENT: hearing intact, clear oral mucosa - Neck Neck: Present: supple - Respiratory Respiratory effort: normal Respiratory: bilateral: CTA - Cardiovascular Rhythm: regular - Extremities Extremity abnormal: edema, other (Extensive diffuse bilateral lower extremity edema and right 2+ upper extremity edema) - Abdominal General gastrointestinal: soft, non-tender, other (Obese) - Integumentary Integumentary: Absent: rash - Psychiatric Psychiatric: appropriate mood/affect - Neurologic Neurologic: no focal deficits Results - Labs CBC & Chem 7: 04/05/21 11:07 04/05/21 05:01 Labs: Laboratory Last Values WBC 16.0 K/mm3 (4.5-11.0) H 04/05/21 05:01 RBC 2.63 M/mm3 (3.65-5.03) L 04/05/21 05:01 Hgb 7.6 gm/dl (10.1-14.3) L 04/05/21 11:07 Hct 24.6 % (30.3-42.9) L 04/05/21 11:07 MCV 91 fl (79-97) 04/05/21 05:01 MCH 28 pg (28-32) 04/05/21 05:01 MCHC 31 % (30-34) 04/05/21 05:01 RDW 21.1 % (13.2-15.2) H 04/05/21 05:01 Plt Count 655 K/mm3 (140-440) H 04/05/21 11:07 Lymph % (Auto) 13.7 % (13.4-35.0) 04/05/21 05:01 Wallace % (Auto) 6.2 % (0.0-7.3) 04/05/21 05:01 Eos % (Auto) 0.5 % (0.0-4.3) 04/05/21 05:01 Baso % (Auto) 0.5 % (0.0-1.8) 04/05/21 05:01 Lymph # (Auto) 2.2 K/mm3 (1.2-5.4) 04/05/21 05:01 Wallace # (Auto) 1.0 K/mm3 (0.0-0.8) H 04/05/21 05:01 Eos # (Auto) 0.1 K/mm3 (0.0-0.4) 04/05/21 05:01 Baso # (Auto) 0.1 K/mm3 (0.0-0.1) 04/05/21 05:01 Seg Neutrophils % 79.1 % (40.0-70.0) H 04/05/21 05:01 Seg Neutrophils # 12.6 K/mm3 (1.8-7.7) H 04/05/21 05:01 PT 19.5 Sec. (12.2-14.9) H 04/05/21 17:59 INR 1.49 (0.87-1.13) H 04/05/21 17:59 APTT 119.3 Sec. (24.2-36.6) H* 04/03/21 18:11 Heparin Anti-Xa Level 0.38 U.I./ml (0.3-0.7) 04/05/21 17:59 Sodium 134 mmol/L (137-145) L 04/05/21 05:01 Potassium 3.4 mmol/L (3.6-5.0) L 04/05/21 05:01 Chloride 104.3 mmol/L (98-107) 04/05/21 05:01 Carbon Dioxide 21 mmol/L (22-30) L 04/05/21 05:01 Anion Gap 12 mmol/L 04/05/21 05:01 BUN 7 mg/dL (7-17) 04/05/21 05:01 Creatinine 0.4 mg/dL (0.6-1.2) L 04/05/21 05:01 Estimated GFR > 60 ml/min 04/05/21 05:01 BUN/Creatinine Ratio 18 % 04/05/21 05:01 Glucose 100 mg/dL (65-100) 04/05/21 05:01 Lactic Acid 3.50 mmol/L (0.7-2.0) H* 04/04/21 20:54 Calcium 7.5 mg/dL (8.4-10.2) L D 04/05/21 05:01 Magnesium 1.60 mg/dL (1.7-2.3) L 04/05/21 05:01 Total Bilirubin 0.40 mg/dL (0.1-1.2) 04/05/21 05:01 AST 6 units/L (5-40) 04/05/21 05:01 ALT < 5 units/L (7-56) L 04/05/21 05:01 Alkaline Phosphatase 89 units/L (35-129) 04/05/21 05:01 Total Protein 3.7 g/dL (6.3-8.2) L 04/05/21 05:01 Albumin 1.7 g/dL (3.9-5) L 04/05/21 05:01 Albumin/Globulin Ratio 0.9 % 04/05/21 05:01 Procalcitonin 0.12 ng/mL (<0.15) 04/04/21 20:54 Urine Color Red (Yellow) 04/05/21 00:50 Urine Turbidity Cloudy (Clear) 04/05/21 00:50 Urine pH 6.0 (5.0-7.0) 04/05/21 00:50 Ur Specific Kent 1.035 (1.003-1.030) H 04/05/21 00:50 Urine Protein >500 mg/dL (Negative) 04/05/21 00:50 Urine Glucose (UA) Neg mg/dL (Negative) 04/05/21 00:50 Urine Ketones Neg mg/dL (Negative) 04/05/21 00:50 Urine Blood Lg (Negative) 04/05/21 00:50 Urine Nitrite Pos (Negative) 04/05/21 00:50 Urine Bilirubin Neg (Negative) 04/05/21 00:50 Urine Urobilinogen < 2.0 mg/dL (<2.0) 04/05/21 00:50 Ur Leukocyte Esterase Lg (Negative) 04/05/21 00:50 Urine WBC (Auto) 152.0 /HPF (0.0-6.0) H 04/05/21 00:50 Urine RBC (Auto) > 182.0 /HPF (0.0-6.0) 04/05/21 00:50 U Epithel Cells (Auto) 1.0 /HPF (0-13.0) 04/05/21 00:50 Urine Bacteria (Auto) 1+ /HPF (Negative) 04/05/21 00:50 Urine Mucus 3+ /HPF 04/05/21 00:50 Blood Type O POSITIVE 04/05/21 11:07 Antibody Screen Negative 04/05/21 11:07 Crossmatch See Detail 04/05/21 11:07 Microbiology: Microbiology 04/04/21 20:54 Peripheral/Venous Blood Culture - Preliminary Culture in Progress 04/04/21 21:09 Peripheral/Venous Blood Culture - Preliminary Culture in Progress Monk/IV: Voiding Method Incontinent Active Medications - Current Medications Current Medications: Generic Name Dose Route Start Last Admin Trade Name Freq PRN Reason Stop Dose Admin Acetaminophen 650 mg 04/04/21 00:21 Acetaminophen 325 Mg Tab PO Q4H PRN Pain MILD(1-3)/Fever >100.5/SALAZAR Albuterol 2.5 mg 04/04/21 02:00 Albuterol 2.5 Mg/3 Ml Nebu IH Q3HRT PRN Shortness Of Breath Albuterol/Ipratropium 1 ampul 04/04/21 02:00 04/05/21 15:21 Ipratropium/Albuterol Sulfate 3 Ml Ampul.Neb IH 1 ampul Q6HRT GIA Administration Atorvastatin Calcium 40 mg 04/04/21 22:00 04/04/21 21:29 Atorvastatin 40 Mg Tab PO 40 mg QHS GIA Administration Cholestyramine Resin 4 gm 04/05/21 12:00 04/05/21 13:30 Cholestyramine (With Sugar) 4 Gm Packet PO 4 gm BID GIA Administration Famotidine 20 mg 04/04/21 10:00 04/05/21 13:31 Famotidine 20 Mg Tab PO 20 mg BID GIA Administration Heparin Sodium (Porcine) 3,500 unit 04/05/21 15:00 Heparin 10,000 Units/10 Ml Vial 40 unit/kg (3500 unit) IV Q6H PRN Anti-Xa Assay < 0.1 units/ml Heparin Sodium/Sodium Chloride 25,000 unit in 500 mls @ 26 mls/hr 04/05/21 09:00 04/05/21 13:48 Heparin/ 0.45% Nacl-25,000 Unit/500 Ml IV 1,300 units/hr TITR GIA 26 mls/hr Administration Protocol 1,300 UNITS/HR Meclizine HCl 25 mg 04/04/21 01:00 Meclizine 25 Mg Tab PO Q8H PRN Vertigo Morphine Sulfate 2 mg 04/04/21 01:00 Morphine 2 Mg/1 Ml Inj IV Q4H PRN Pain, Moderate (4-6) Ondansetron HCl 4 mg 04/04/21 01:00 Ondansetron 4 Mg/2 Ml Inj IV Q8H PRN Nausea And Vomiting Sodium Chloride 10 ml 04/04/21 10:00 04/05/21 11:43 Sodium Chloride 0.9% 10 Ml Flush Syringe IV 10 ml BID GIA Administration Sodium Chloride 10 ml 04/04/21 01:00 Sodium Chloride 0.9% 10 Ml Flush Syringe IV PRN PRN LINE FLUSH
[2021-04-06] MEDS: IPRATROPIUM/ALBUTEROL SULFATE 3 ML AMPUL.NEB IH SCH ×3 (10:02→22:01)
[2021-04-06] MEDS ORDERED: HEPARIN/NS 5000 UNIT/500ML 500 ML IR ONE ×4 (10:21→13:08)
[2021-04-06] MEDS ORDERED: LIDOCAINE (2%) 20 MG/1 ML VIAL 20 ML MDV INFILTRATI ONE ×2 (10:34→13:31)
[2021-04-06] MEDS ORDERED: SODIUM CHLORIDE 0.9% 500 ML 500 ML ONE (10:43)
[2021-04-06] MEDS: fentaNYL 100 MCG/2 ML INJ ONE ×5 (10:55→13:17)
[2021-04-06] MEDS: MIDAZOLAM 2 MG/2 ML INJ ONE ×4 (10:55→12:11)
[2021-04-06] MEDS ORDERED: ceFAZolin/Water 2 GM/20 ML 2 GM/20 ML SYRINGE IV ONE (11:09)
[2021-04-06] MEDS: HEPARIN 10,000 UNITS/10 ML VIAL ONE ×3 (11:25→12:30)
--- NOTE | 2021-04-06 13:57 | Post Operative Note ---
Date of procedure: 04/06/21 Pre-op diagnosis: IVC thrombosis, bilateral LE DVT, severe symptoms and swelling Post-op diagnosis: same Procedure: 1. Ultrasound-guided access of the left popliteal vein. 2. Ultrasound-guided access of the right popliteal vein. 3. Bilateral lower extremity venography and IVC venography. 4. Selection of the IVC. 5. Clottriever mechanical thrombectomy of the bilateral common iliac veins, bilateral external iliac veins, bilateral common femoral veins, bilateral superficial femoral veins, and popliteal veins 6. Marine Electrician Apprentice thrombectomy of the left common femoral vein with subsequent Clottriever mechanical thrombectomy. 7. 16 Angolan flowtriever thrombectomy of the IVC at the level of the IVC filter, and below the IVC filter, and in the left common iliac vein. 8. Angioplasty of the IVC with a 16 mm x 40 mm angioplasty balloon 9. Angioplasty of the left common iliac vein with a 16 mm x 40 mm angioplasty balloon 10. Angioplasty of the right common iliac vein with a 16 mm x 40 mm angioplasty balloon Anesthesia: local (with conscious sedation) Surgeon: DIONNE RIOS Estimated blood loss: other (200 mL aspiration thrombectomy) Specimen disposition: discarded ( thrombus discarded) Condition: stable Disposition: floor
--- NOTE | 2021-04-06 14:04 | Event Note ---
Date: 04/06/21 Successful bilateral DVT and IVC thrombectomy and angioplasty. Thrombus essentially all removed. Keep SCD applied to prevent recurrent DVT and keep flow in leg veins. Keep ANGIE hose on. Transitioned from heparin to Xarelto. Keep flat for 8 hrs. Remove pressure dressing on 04/07/2021 in AM.
--- NOTE | 2021-04-06 14:04 | Operative Report ---
Operative Report Operative Report: EXAM: 1. Ultrasound-guided access of the left popliteal vein. 2. Ultrasound-guided access of the right popliteal vein. 3. Bilateral lower extremity venography and IVC venography. 4. Selection of the IVC. 5. Clottriever mechanical thrombectomy of the bilateral common iliac veins, bilateral external iliac veins, bilateral common femoral veins, bilateral superficial femoral veins, and popliteal veins 6. Self Defense Instructor thrombectomy of the left common femoral vein with subsequent Clottriever mechanical thrombectomy. 7. 16 Australian flowtriever thrombectomy of the IVC at the level of the IVC filter, and below the IVC filter, and in the left common iliac vein. 8. Angioplasty of the IVC with a 16 mm x 40 mm angioplasty balloon 9. Angioplasty of the left common iliac vein with a 16 mm x 40 mm angioplasty balloon 10. Angioplasty of the right common iliac vein with a 16 mm x 40 mm angioplasty balloon DATE: 04/06/2021 SUPERVISOR REMELT: DIONNE RIOS MD INDICATION: IVC thrombus, and bilateral iliofemoral thrombus with extensive swelling of the lower extremities MEDICATIONS: Please see nursing report for full details. DEVICES: 16 mm x 40 mm angioplasty balloon 16 Australian Flowtriever 13 Australian Clottriever 7 Fr Self Defense Instructor CONTRAST: 180 mL of nonionic contrast PROCEDURE: The risks, benefits, alternatives were discussed; written informed consent was obtained. The patient was placed in a prone position and her mid thighs to mid calves were prepped and draped in a sterile fashion. Ultrasound was used to evaluate the right popliteal vein. Under direct ultrasound guidance, the right popliteal vein was accessed with a 21-gauge micropuncture needle. 0.018 inch wire was passed into the femoral vein. Needle was exchanged for transitional dilator. Wire was exchanged for a 0.035 inch wire. Transitional dilator was exchanged for 5 Australian sheath. Ultrasound was used to evaluate the left popliteal vein. Under direct ultrasound guidance, the left popliteal vein was accessed with a 21-gauge micropuncture needle. 0.018 inch wire was passed into the femoral vein. Needle was exchanged for transitional dilator. Wire was exchanged for a 0.035 inch wire. Transitional dilator was exchanged for 5 Australian sheath. Digital subtraction angiography demonstrates left popliteal vein nonocclusive thrombus, left mid and upper superficial femoral vein nonocclusive thrombus, left common femoral vein nonocclusive thrombus, left common iliac vein nearly occlusive thrombus, a nearly occlusive thrombus throughout the IVC below the IVC filter. Digital subtraction angiography demonstrates right popliteal vein nonocclusive thrombus, right upper superficial femoral vein nonocclusive thrombus and some common femoral vein nonocclusive thrombus. There is some nonocclusive thrombus in the left common iliac vein. Again noted is extensive nonocclusive thrombus throughout the IVC below the IVC filter. Serial dilatation was performed on both sides over an 035 Glidewire advantage and 16 Australian Clot-triever sheaths appropriately placed in the popliteal veins. The left popliteal vein access site had a flush catheter advanced to the IVC and the IVC was selected and digital subtraction angiography was performed demonstrating infrarenal IVC nonocclusive thrombus. The left catheter was then used to select the right external iliac vein, superficial femoral vein, and popliteal vein. Through the right popliteal vein access, a snare was advanced and a Glidewire advantage was flossed and externalized allowing externalized wire communicating between the popliteal veins. Thrombectomy was then performed with Clottriever device from the ileocaval junction to the the left side utilizing a four-quadrant approach. Afterwards, digital subtraction angiography demonstrated clearance of the thrombus in the popliteal vein and superficial femoral vein, but residual thrombus in the right common femoral vein. Self Defense Instructor thrombectomy device was advanced over the wire and used to perform thrombectomy of the left common femoral vein and afterwards repeat Clottriever thrombectomy was performed removing this thrombus. Digital subtraction angiography was performed demonstrating clearance of all thrombus in the left popliteal vein, superficial femoral vein, common femoral vein, and external iliac vein. Most of the thrombus in the left common iliac vein was also removed. There is still thrombus in the IVC. Thrombectomy was then performed with Clottriever device from the ileocaval junction to the the right side utilizing a four-quadrant approach. Afterwards, digital subtraction angiography demonstrated clearance of the thrombus in the popliteal vein and superficial femoral vein, right common femoral vein, external iliac vein, and common iliac vein. The IVC was then selected and digital subtraction angiography was performed demonstrating large amounts of caval thrombus below the IVC filter. The flossed wire was then removed and bilateral stiff wires were advanced through the IVC filter. Through the left sheath, a 16 Australian Flowtriever was advanced into the left common iliac vein and aspiration was performed. Then this was performed multiple times in the IVC with redirection and multiple planes. A flow saver device was used to return most of the blood. A large amount of thrombus was removed. The thrombectomy device was then removed and replaced to the right sided sheath and this was performed into the IVC and again multiple aspirations were performed and a flow saver device was used to return most of the blood. Self Defense Instructor thrombectomy device was then used to disrupt thrombus in the left common iliac vein and in the IVC through the left popliteal approach. And afterwards repeated thrombectomy was performed with a Flowtriever device until nearly all of the thrombus was removed. There is some stenosis in the left common iliac vein resulting in 60 % narrowing and 50% in the right common iliac vein. There was 20 to 30% stenosis in the IVC. 60 mm angioplasty balloon was used to perform angioplasty of the right common iliac vein, IVC, and left common iliac vein. Digital subtraction angiography was performed demonstrating less than 20% residual narrowing in the right common iliac vein, left common iliac vein, and less than 10% residual narrowing in the IVC. There was excellent flow at the conclusion of the case. At this point, all wires, catheters, and sheaths were removed and the sites were closed with a pursestring 0 silk suture. Sterile dressing was applied. Román bandage applied. Pressure bandage applied. SCDs and ANGIE hose were applied. Patient was then started on Xarelto. The patient tolerated the procedure well. No immediate postprocedural compl ications. FINDINGS: Please see procedure note above. IMPRESSION: Successful thrombectomy of the IVC and bilateral iliofemoral veins. Successful angioplasty of the IVC and bilateral common iliac veins. Successful selection of the IVC. Successful venography of the IVC and bilateral lower extremity veins.
[2021-04-06] MEDS ORDERED: ALUM-MAG HYDROXIDE-SIMETHICONE 200-200-20MG/5ML ORAL LIQD 30 ML ONE (14:23)
[2021-04-06] MEDS: RIVAROXABAN 15 MG TAB PO SCH (14:28)
[2021-04-06] MEDS ORDERED: HYDROcodone/ACETAMINOPHEN 5-325 MG TAB PO PRN ×2 (14:42)
[2021-04-06] MEDS ORDERED: HYDROcodone/ACETAMINOPHEN 5-325 MG TAB PO ONE (14:43)
--- NOTE | 2021-04-06 16:15 | Gastroenterology Progress Note ---
Assessment and Plan 1. GI: h/o recent colitis in [facility] 01/2021,m recent ct scan w/.o colitis, noted months loose stool - continue Questran bid - diet as tolerated - no plans to scope - pt awaiting vascular procedure today - will follow Subjective Date of service: 04/06/21 Interval history: - mild decrease loose stools, no other complaints Objective - Constitutional Vitals: Temp Pulse Resp BP Pulse Ox 98.8 F 118 H 15 101/73 96 04/06/21 14:15 04/06/21 15:00 04/06/21 15:00 04/06/21 15:00 04/06/21 15:00 General appearance: no acute distress - EENT Eyes: PERRL - Respiratory Respiratory: bilateral: rhonchi - Cardiovascular Rhythm: regular Heart Sounds: Present: S1 & S2 - Gastrointestinal General gastrointestinal: Present: soft, non-tender, non-distended (+++++++++++) - Labs CBC & Chem 7: 04/05/21 11:07 04/05/21 05:01 Labs: Laboratory Results - last 24 hr 04/05/21 04/06/21 17:59 00:09 PT 19.5 H INR 1.49 H Heparin Anti-Xa Level 0.38 0.63
[2021-04-06] MEDS: CHOLESTYRAMINE (WITH SUGAR) 4 GM PACKET PO SCH ×2 (19:49→22:55)
[2021-04-06] MEDS: PANTOPRAZOLE 20 MG TAB PO SCH (19:50)
[2021-04-06] MEDS: cefTRIAXone/NS 2 GM/100 ML 2 GM/100 ML BAG IV SCH (19:50)
--- NOTE | 2021-04-06 20:18 | Progress Note ---
Assessment and Plan Assessment and plan: 66-year-old female present with a chief complaint bilateral DVTs.Patient then had COVID, and her SOB worsened. Patient admitted to [facility] with SOB with oxygen dependence and PE. Ultimately underwent PE thrombectomy and SOB improved. Then patient was discharged, had no anticoagulation for 1 week, then started on warfarin and levels not being checked for 3 weeks. Patient complained of severe lower extremity swelling. RLE DVT study performed at bedside demonstrating CFV thrombus. Patient was sent to ER for severe swelling with DVT (DVT not previously present). Now INR 14.5 . Case discussed with vascular surgeon, Dr. Mittal who recommended to give vitamin K 10 mg IM x1 dose and serial PT/INR. He recommends starting heparin infusion once INR drops to 2.0 and will need a thrombectomy. Dr. Mittal reviewed ultrasound which demonstrating right common femoral vein thrombus and left superficial femoral vein thrombus (clearly listed on physician allergist immunologist report and images, unclear why not listed on report). (1) Iliac, common femoral and the superficial femoral venous thrombosis With significant bilateral lower extremities Current Visit: Yes Status: Acute Plan to address problem: Supratherapeutic INR reversed with vitamin K and heparin infusion initiated. Dr Mittal consulted. Patient underwent extensive venous thrombectomy and angioplasty on Tuesday, 04/06. Has sinus tachycardia with BP, postprocedure afebrile. Compression stockings applied postprocedure. (2) chronic anemia Current Visit: Yes Status: Acute Plan to address problem: Could be related to large clot burden. Will monitor and transfuse as needed. No evidence of bruising or abnormal bleeding with a supratherapeutic INR. (3) chronic diarrhea Current Visit: Yes Status: Acute Plan to address problem: Patient reports chronic diarrhea since several months which initially started with some hematochezia according to patient. Recently frequent as she is unable to keep up getting in time to the bathroom. Her mobility is also significantly impaired due to severe low bilateral lower extremity edema from DVT. Patient did not get any GI work-up for this. Consulted GI and started on the Questran powder. Currently no abdominal pains or nausea. Tolerating diet. (4) Supratherapeutic INR Current Visit: Yes Status: Acute Plan to address problem: Warfarin discontinued. Patient was given vitamin K 10 mg Im x1 dose. Transition to heparin drip when the INR less than 2. Dr. Mittal, vascular surgeon consulted and is evaluating/following. Eventually, patient will be discharged home on Xarelto, as per Dr Mittal (5) recent pulmonary embolism Current Visit: Yes Status: Acute Plan to address problem: Patient has history of pulmonary embolism. Status post thrombectomy. Patient presented with supratherapeutic INR. Patient is given vitamin K 10 mg Im x1 d ose. transitioned to heparin drip when the INR less than 2. Currently patient is on room air. Will be discharged on Xarelto. (6) leukocytosis, UTI UA consistent with UTI. Will start Rocephin and monitor. Blood cultures negative to date. DVT prophylaxis Current Visit: No Status: Acute Plan to address problem: On heparin infusion. Pepcid 20 mg p.o. twice daily for GI prophylaxis. Patient is a full code History Interval history: Patient underwent venous thrombectomy and angioplasty today. Denies chest pains, dyspnea, palpitations, fever or chills. Lower extremities remain grossly swollen and compression stocking applied today. Hospitalist Physical - Constitutional Vitals: Temp Pulse Resp BP Pulse Ox 97.6 F 107 H 16 101/61 93 04/06/21 19:32 04/06/21 19:32 04/06/21 19:32 04/06/21 19:32 04/06/21 19:32 General appearance: Present: no acute distress, obese, other (Alert and oriented) - EENT Eyes: Present: PERRL, EOM intact ENT: clear oral mucosa - Neck Neck: Present: supple - Respiratory Respiratory effort: normal Respiratory: bilateral: CTA - Cardiovascular Rhythm: regular - Extremities Extremity abnormal: edema ( gross swelling in the lower extremities, ) - Integumentary Integumentary: Absent: rash - Psychiatric Psychiatric: appropriate mood/affect - Neurologic Neurologic: no focal deficits, moves all extremities Results - Labs CBC & Chem 7: 04/06/21 23:28 04/06/21 23:28 Labs: Laboratory Last Values WBC 16.0 K/mm3 (4.5-11.0) H 04/05/21 05:01 RBC 2.63 M/mm3 (3.65-5.03) L 04/05/21 05:01 Hgb 7.6 gm/dl (10.1-14.3) L 04/05/21 11:07 Hct 24.6 % (30.3-42.9) L 04/05/21 11:07 MCV 91 fl (79-97) 04/05/21 05:01 MCH 28 pg (28-32) 04/05/21 05:01 MCHC 31 % (30-34) 04/05/21 05:01 RDW 21.1 % (13.2-15.2) H 04/05/21 05:01 Plt Count 655 K/mm3 (140-440) H 04/05/21 11:07 Lymph % (Auto) 13.7 % (13.4-35.0) 04/05/21 05:01 [place] % (Auto) 6.2 % (0.0-7.3) 04/05/21 05:01 Eos % (Auto) 0.5 % (0.0-4.3) 04/05/21 05:01 Baso % (Auto) 0.5 % (0.0-1.8) 04/05/21 05:01 Lymph # (Auto) 2.2 K/mm3 (1.2-5.4) 04/05/21 05:01 [place] # (Auto) 1.0 K/mm3 (0.0-0.8) H 04/05/21 05:01 Eos # (Auto) 0.1 K/mm3 (0.0-0.4) 04/05/21 05:01 Baso # (Auto) 0.1 K/mm3 (0.0-0.1) 04/05/21 05:01 Seg Neutrophils % 79.1 % (40.0-70.0) H 04/05/21 05:01 Seg Neutrophils # 12.6 K/mm3 (1.8-7.7) H 04/05/21 05:01 PT 19.5 Sec. (12.2-14.9) H 04/05/21 17:59 INR 1.49 (0.87-1.13) H 04/05/21 17:59 APTT 119.3 Sec. (24.2-36.6) H* 04/03/21 18:11 Heparin Anti-Xa Level 0.63 U.I./ml (0.3-0.7) 04/06/21 00:09 Sodium 134 mmol/L (137-145) L 04/05/21 05:01 Potassium 3.4 mmol/L (3.6-5.0) L 04/05/21 05:01 Chloride 104.3 mmol/L (98-107) 04/05/21 05:01 Carbon Dioxide 21 mmol/L (22-30) L 04/05/21 05:01 Anion Gap 12 mmol/L 04/05/21 05:01 BUN 7 mg/dL (7-17) 04/05/21 05:01 Creatinine 0.4 mg/dL (0.6-1.2) L 04/05/21 05:01 Estimated GFR > 60 ml/min 04/05/21 05:01 BUN/Creatinine Ratio 18 % 04/05/21 05:01 Glucose 100 mg/dL (65-100) 04/05/21 05:01 Lactic Acid 3.50 mmol/L (0.7-2.0) H* 04/04/21 20:54 Calcium 7.5 mg/dL (8.4-10.2) L D 04/05/21 05:01 Magnesium 1.60 mg/dL (1.7-2.3) L 04/05/21 05:01 Total Bilirubin 0.40 mg/dL (0.1-1.2) 04/05/21 05:01 AST 6 units/L (5-40) 04/05/21 05:01 ALT < 5 units/L (7-56) L 04/05/21 05:01 Alkaline Phosphatase 89 units/L (35-129) 04/05/21 05:01 Total Protein 3.7 g/dL (6.3-8.2) L 04/05/21 05:01 Albumin 1.7 g/dL (3.9-5) L 04/05/21 05:01 Albumin/Globulin Ratio 0.9 % 04/05/21 05:01 Procalcitonin 0.12 ng/mL (<0.15) 04/04/21 20:54 Urine Color Red (Yellow) 04/05/21 00:50 Urine Turbidity Cloudy (Clear) 04/05/21 00:50 Urine pH 6.0 (5.0-7.0) 04/05/21 00:50 Ur Specific [place] 1.035 (1.003-1.030) H 04/05/21 00:50 Urine Protein >500 mg/dL (Negative) 04/05/21 00:50 Urine Glucose (UA) Neg mg/dL (Negative) 04/05/21 00:50 Urine Ketones Neg mg/dL (Negative) 04/05/21 00:50 Urine Blood Lg (Negative) 04/05/21 00:50 Urine Nitrite Pos (Negative) 04/05/21 00:50 Urine Bilirubin Neg (Negative) 04/05/21 00:50 Urine Urobilinogen < 2.0 mg/dL (<2.0) 04/05/21 00:50 Ur Leukocyte Esterase Lg (Negative) 04/05/21 00:50 Urine WBC (Auto) 152.0 /HPF (0.0-6.0) H 04/05/21 00:50 Urine RBC (Auto) > 182.0 /HPF (0.0-6.0) 04/05/21 00:50 U Epithel Cells (Auto) 1.0 /HPF (0-13.0) 04/05/21 00:50 Urine Bacteria (Auto) 1+ /HPF (Negative) 04/05/21 00:50 Urine Mucus 3+ /HPF 04/05/21 00:50 Blood Type O POSITIVE 04/05/21 11:07 Antibody Screen Negative 04/05/21 11:07 Crossmatch See Detail 04/05/21 11:07 Microbiology: Microbiology 04/04/21 21:09 Peripheral/Venous Blood Culture - Preliminary NO GROWTH AFTER 24 HOURS 04/04/21 20:54 Peripheral/Venous Blood Culture - Preliminary NO GROWTH AFTER 24 HOURS Monk/IV: Voiding Method Incontinent Active Medications - Current Medications Current Medications: Generic Name Dose Route Start Last Admin Trade Name Freq PRN Reason Stop Dose Admin Acetaminophen 650 mg 04/04/21 00:21 Acetaminophen 325 Mg Tab PO Q4H PRN Pain MILD(1-3)/Fever >100.5/SALAZAR Hydrocodone Bitart/Acetaminophen 2 each 04/06/21 14:42 Hydrocodone/Acetaminophen 5-325 Mg Tab PO Q4H PRN Pain , Severe (7-10) Hydrocodone Bitart/Acetaminophen 1 each 04/06/21 14:42 Hydrocodone/Acetaminophen 5-325 Mg Tab PO Q4H PRN Pain, Moderate (4-6) Albuterol 2.5 mg 04/04/21 02:00 Albuterol 2.5 Mg/3 Ml Nebu IH Q3HRT PRN Shortness Of Breath Albuterol/Ipratropium 1 ampul 04/06/21 08:00 04/06/21 16:07 Ipratropium/Albuterol Sulfate 3 Ml Ampul.Neb IH 1 ampul TIDRT GIA Administration Atorvastatin Calcium 40 mg 04/04/21 22:00 04/05/21 22:05 Atorvastatin 40 Mg Tab PO 40 mg QHS [facility] Administration Cholestyramine Resin 4 gm 04/05/21 12:00 04/06/21 19:49 Cholestyramine (With Sugar) 4 Gm Packet PO Not Given BID [facility] Ceftriaxone Sodium 2 gm in 100 mls @ 200 mls/hr 04/06/21 11:00 04/06/21 19:50 Rocephin/Ns 2 Gm/100 Ml IV Not Given Q24H [facility] Protocol Meclizine HCl 25 mg 04/04/21 01:00 Meclizine 25 Mg Tab PO Q8H PRN Vertigo Ondansetron HCl 4 mg 04/04/21 01:00 Ondansetron 4 Mg/2 Ml Inj IV Q8H PRN Nausea And Vomiting Pantoprazole Sodium 20 mg 04/06/21 15:00 04/06/21 19:50 Pantoprazole 20 Mg Tab PO Not Given QDAC [facility] Rivaroxaban 15 mg 04/06/21 13:58 04/06/21 14:28 Rivaroxaban 15 Mg Tab PO 04/26/21 17:01 15 mg BIDDIAB [facility]IA Administration Protocol Rivaroxaban 20 mg 04/27/21 08:00 Rivaroxaban 20 Mg Tab PO QPMDIAB [facility] Protocol Sodium Chloride 10 ml 04/04/21 10:00 04/06/21 19:49 Sodium Chloride 0.9% 10 Ml Flush Syringe IV Not Given BID GIA Sodium Chloride 10 ml 04/04/21 01:00 Sodium Chloride 0.9% 10 Ml Flush Syringe IV PRN PRN LINE FLUSH
[2021-04-06 23:50] LABS: Mean Corpuscular HGB Conc 29 % (30-34); Mean Corpuscular Volume 92 fl (79-97); Platelet Count 620 K/mm3 (140-440); Red Blood Count 2.76 M/mm3 (3.65-5.03)
[2021-04-07 00:01] LABS: INR 2.39 (0.87-1.13)
[2021-04-07 00:03] LABS: Hematocrit 25.3 % (30.3-42.9); Hemoglobin 7.4 gm/dl (10.1-14.3); Red Cell Distribution Width 21.1 % (13.2-15.2)
[2021-04-07 00:11] LABS: Alanine Aminotransferase 6 units/L (7-56); Albumin 1.6 g/dL (3.9-5); Blood Urea Nitrogen 7 mg/dL (7-17); Calcium 7.4 mg/dL (8.4-10.2); Hemolysis Index 16
[2021-04-07 00:31] LABS: BUN/Creatinine Ratio 18
[2021-04-07 04:14] LABS: Basophils % (Manual) 0 % (0.0-1.8); Eosinophils % (Manual) 0 % (0.0-4.3); Monocytes % (Manual) 0 % (0.0-7.3); Total Cells Counted 100
[2021-04-07 04:15] LABS: Anisocytosis 1+; Platelet Estimate Consistent w Auto
[2021-04-07] MEDS: PANTOPRAZOLE 20 MG TAB PO SCH ×2 (07:45→22:41)
[2021-04-07] MEDS: RIVAROXABAN 15 MG TAB PO SCH ×3 (09:02→16:49)
[2021-04-07] MEDS: IPRATROPIUM/ALBUTEROL SULFATE 3 ML AMPUL.NEB IH SCH ×3 (09:20→22:07)
[2021-04-07 09:44] LABS: Hematocrit 22.3 % (30.3-42.9); Hemoglobin 6.8 gm/dl (10.1-14.3); Mean Corpuscular HGB Conc 31 % (30-34); Mean Corpuscular Volume 91 fl (79-97); Platelet Count 492 K/mm3 (140-440); Red Blood Count 2.45 M/mm3 (3.65-5.03)
[2021-04-07 09:45] LABS: Red Cell Distribution Width 21.3 % (13.2-15.2)
[2021-04-07 09:56] LABS: Alanine Aminotransferase 6 units/L (7-56); Albumin 1.7 g/dL (3.9-5); Blood Urea Nitrogen 9 mg/dL (7-17); Calcium 7.6 mg/dL (8.4-10.2); Hemolysis Index 4
[2021-04-07 10:13] LABS: BUN/Creatinine Ratio 18
[2021-04-07 10:32] LABS: Band Neutrophils # (Manual) 0.2 K/mm3; Basophils % (Manual) 0 % (0.0-1.8); Eosinophils % (Manual) 0 % (0.0-4.3); Total Cells Counted 100
[2021-04-07 10:33] LABS: Anisocytosis 1+; Hypochromasia 1+; Platelet Estimate Consistent w Auto
[2021-04-07] MEDS: cefTRIAXone/NS 2 GM/100 ML 2 GM/100 ML BAG IV SCH (11:01)
[2021-04-07] MEDS: CHOLESTYRAMINE (WITH SUGAR) 4 GM PACKET PO SCH ×3 (11:03→22:46)
[2021-04-07] MEDS ORDERED: SODIUM CHLORIDE 0.9% 500 ML 500 ML IV SCH (11:09)
--- NOTE | 2021-04-07 11:09 | Progress Note ---
Assessment and Plan Assessment and plan: 66-year-old female present with a chief complaint bilateral DVTs.Patient then had COVID, and her SOB worsened. Patient admitted to [facility] with SOB with oxygen dependence and PE. Ultimately underwent PE thrombectomy and SOB improved. Then patient was discharged, had no anticoagulation for 1 week, then started on warfarin and levels not being checked for 3 weeks. Patient complained of severe lower extremity swelling. RLE DVT study performed at bedside demonstrating CFV thrombus. Patient was sent to ER for severe swelling with DVT (DVT not previously present). Initially INR was 14.5 . Case discussed with vascular surgeon, Dr. Mittal who recommended to give vitamin K 10 mg IM x1 dose and serial PT/INR. He recommends starting heparin infusion once INR drops to 2.0 and will need a thrombectomy. Dr. Mittal reviewed ultrasound which demonstrating right common femoral vein thrombus and left superficial femoral vein thrombus (clearly listed on rock cutter report and images, unclear why not listed on report). (1) Iliac, common femoral and the superficial femoral venous thrombosis With significant bilateral lower extremities Current Visit: Yes Status: Acute Plan to address problem: Supratherapeutic INR reversed with vitamin K and heparin infusion initiated. Dr Mittal consulted. Patient underwent extensive venous thrombectomy and angioplasty on Tuesday, 04/06. Has sinus tachycardia with BP, postprocedure afebrile. Compression stockings applied postprocedure. (2) chronic anemia Current Visit: Yes Status: Acute Plan to address problem: Could be related to large clot burden. Will monitor and transfuse as needed. No evidence of bruising or abnormal bleeding with a supratherapeutic INR. (3) chronic diarrhea Current Visit: Yes Status: Acute Plan to address problem: Patient reports chronic diarrhea since several months which initially started with some hematochezia according to patient. Recently frequent as she is unable to keep up getting in time to the bathroom. Her mobility is also significantly impaired due to severe low bilateral lower extremity edema from DVT. Patient did not get any GI work-up for this. Consulted GI and started on the Questran powder. Currently no abdominal pains or nausea. Tolerating diet. (4) Supratherapeutic INR Current Visit: Yes Status: Acute Plan to address problem: Warfarin discontinued. Patient was given vitamin K 10 mg Im x1 dose. Transition to heparin drip when the INR less than 2. Dr. Mittal, vascular surgeon consulted and is evaluating/following. Eventually, patient will be discharged home on Xarelto, as per Dr Mittal (5) recent pulmonary embolism Current Visit: Yes Status: Acute Plan to address problem: Patient has history of pulmonary embolism. Status post thrombectomy. Patient presented with supratherapeutic INR. Patient is given vitamin K 10 mg Im x1 dose. transitioned to heparin drip when the INR less than 2. Currently patient is on room air. Will be discharged on Xarelto. (6) leukocytosis, UTI UA consistent with UTI. Will start Rocephin and monitor. Blood cultures negative to date. DVT prophylaxis Current Visit: No Status: Acute Plan to address problem: On heparin infusion. Pepcid 20 mg p.o. twice daily for GI prophylaxis. Patient is a full code 04/07/2021. Patient underwent successful bilateral DVT and IVC thrombectomy and angioplasty yesterday. Keep SCD applied to prevent recurrent DVT and keep flow in leg veins. Keep ANGIE hose on. Transitioned from heparin to Xarelto. Patient with a hemoglobin of 6.8. We will type and cross and transfuse 2 units. Follow-up INR. INR yesterday still supratherapeutic at 2.39 History Interval history: No new issues overnight. Hospitalist Physical - Constitutional Vitals: Temp Pulse Resp BP Pulse Ox 98.7 F 117 H 18 111/62 95 04/07/21 03:50 04/07/21 09:20 04/07/21 09:20 04/07/21 03:50 04/07/21 09:23 General appearance: Present: no acute distress, obese, other (Alert and oriented) - EENT Eyes: Present: PERRL, EOM intact ENT: hearing intact, clear oral mucosa, dentition normal - Neck Neck: Present: supple, normal ROM - Respiratory Respiratory effort: normal Respiratory: bilateral: CTA - Cardiovascular Rhythm: regular Heart Sounds: Present: S1 & S2. Absent: gallop, rub - Extremities Extremities: no ischemia, No edema, Full ROM - Abdominal General gastrointestinal: soft, non-tender, non-distended, normal bowel sounds - Integumentary Integumentary: Present: clear, warm, dry - Neurologic Neurologic: CNII-XII intact, moves all extremities Results - Labs CBC & Chem 7: 04/07/21 08:47 04/07/21 08:47 Labs: Laboratory Last Values WBC 17.2 K/mm3 (4.5-11.0) H 04/07/21 08:47 RBC 2.45 M/mm3 (3.65-5.03) L 04/07/21 08:47 Hgb 6.8 gm/dl (10.1-14.3) L 04/07/21 08:47 Hct 22.3 % (30.3-42.9) L 04/07/21 08:47 MCV 91 fl (79-97) 04/07/21 08:47 MCH 28 pg (28-32) 04/07/21 08:47 MCHC 31 % (30-34) 04/07/21 08:47 RDW 21.3 % (13.2-15.2) H 04/07/21 08:47 Plt Count 492 K/mm3 (140-440) H 04/07/21 08:47 Lymph % (Auto) Home Health Cna 04/07/21 08:47 [place] % (Auto) Home Health Cna 04/07/21 08:47 Eos % (Auto) Home Health Cna 04/07/21 08:47 Baso % (Auto) Home Health Cna 04/07/21 08:47 Lymph # (Auto) Home Health Cna 04/07/21 08:47 [place] # (Auto) Home Health Cna 04/07/21 08:47 Eos # (Auto) Home Health Cna 04/07/21 08:47 Baso # (Auto) Home Health Cna 04/07/21 08:47 Add Manual Diff Complete 04/07/21 08:47 Total Counted 100 04/07/21 08:47 Seg Neutrophils % Home Health Cna 04/07/21 08:47 Seg Neuts % (Manual) 80.0 % (40.0-70.0) H 04/07/21 08:47 Band Neutrophils % 1.0 % 04/07/21 08:47 Lymphocytes % (Manual) 13.0 % (13.4-35.0) L 04/07/21 08:47 Reactive Lymphs % (Man) 0 % 04/07/21 08:47 Monocytes % (Manual) 4.0 % (0.0-7.3) 04/07/21 08:47 Eosinophils % (Manual) 0 % (0.0-4.3) 04/07/21 08:47 Basophils % (Manual) 0 % (0.0-1.8) 04/07/21 08:47 Metamyelocytes % 2.0 % 04/07/21 08:47 Myelocytes % 0 % 04/07/21 08:47 Promyelocytes % 0 % 04/07/21 08:47 Blast Cells % 0 % 04/07/21 08:47 Nucleated RBC % Not Reportable 04/07/21 08:47 Seg Neutrophils # Home Health Cna 04/07/21 08:47 Seg Neutrophils # Man 13.8 K/mm3 (1.8-7.7) H 04/07/21 08:47 Band Neutrophils # 0.2 K/mm3 04/07/21 08:47 Lymphocytes # (Manual) 2.2 K/mm3 (1.2-5.4) 04/07/21 08:47 Abs React Lymphs (Man) 0.0 K/mm3 04/07/21 08:47 Monocytes # (Manual) 0.7 K/mm3 (0.0-0.8) 04/07/21 08:47 Eosinophils # (Manual) 0.0 K/mm3 (0.0-0.4) 04/07/21 08:47 Basophils # (Manual) 0.0 K/mm3 (0.0-0.1) 04/07/21 08:47 Metamyelocytes # 0.3 K/mm3 04/07/21 08:47 Myelocytes # 0.0 K/mm3 04/07/21 08:47 Promyelocytes # 0.0 K/mm3 04/07/21 08:47 Blast Cells # 0.0 K/mm3 04/07/21 08:47 WBC Morphology Not Reportable 04/07/21 08:47 Hypersegmented Neuts Not Reportable 04/07/21 08:47 Hyposegmented Neuts Not Reportable 04/07/21 08:47 Hypogranular Neuts Not Reportable 04/07/21 08:47 Smudge Cells Not Reportable 04/07/21 08:47 Toxic Granulation Not Reportable 04/07/21 08:47 Toxic Vacuolation Not Reportable 04/07/21 08:47 Dohle Bodies Not Reportable 04/07/21 08:47 Pelger-Huet Anomaly Not Reportable 04/07/21 08:47 Lisandro Rods Not Reportable 04/07/21 08:47 Platelet Estimate Consistent w auto 04/07/21 08:47 Clumped Platelets Not Reportable 04/07/21 08:47 Plt Clumps, EDTA Not Reportable 04/07/21 08:47 Large Platelets Not Reportable 04/07/21 08:47 Giant Platelets Not Reportable 04/07/21 08:47 Platelet Satelliting Not Reportable 04/07/21 08:47 Plt Morphology Comment Not Reportable 04/07/21 08:47 RBC Morphology Not Reportable 04/07/21 08:47 Dimorphic RBCs Not Reportable 04/07/21 08:47 Polychromasia Few 04/07/21 08:47 Hypochromasia 1+ 04/07/21 08:47 Poikilocytosis Not Reportable 04/07/21 08:47 Anisocytosis 1+ 04/07/21 08:47 Microcytosis Not Reportable 04/07/21 08:47 Macrocytosis Not Reportable 04/07/21 08:47 Spherocytes Not Reportable 04/07/21 08:47 Pappenheimer Bodies Not Reportable 04/07/21 08:47 Sickle Cells Not Reportable 04/07/21 08:47 Target Cells Not Reportable 04/07/21 08:47 Tear Drop Cells Not Reportable 04/07/21 08:47 Ovalocytes Not Reportable 04/07/21 08:47 Helmet Cells Not Reportable 04/07/21 08:47 [place] Bodies Not Reportable 04/07/21 08:47 [place] Rings Not Reportable 04/07/21 08:47 [place] Cells Not Reportable 04/07/21 08:47 Bite Cells Not Reportable 04/07/21 08:47 Crenated Cell Not Reportable 04/07/21 08:47 Elliptocytes Not Reportable 04/07/21 08:47 Acanthocytes (Spur) Not Reportable 04/07/21 08:47 Rouleaux Not Reportable 04/07/21 08:47 Hemoglobin C Crystals Not Reportable 04/07/21 08:47 Schistocytes Not Reportable 04/07/21 08:47 Malaria parasites Not Reportable 04/07/21 08:47 [place] Bodies Not Reportable 04/07/21 08:47 Hem Pathologist Commnt No 04/07/21 08:47 PT 28.1 Sec. (12.2-14.9) H 04/06/21 23:28 INR 2.39 (0.87-1.13) H 04/06/21 23:28 APTT 38.0 Sec. (24.2-36.6) H 04/06/21 23:28 Heparin Anti-Xa Level > 2.00 U.I./ml (0.3-0.7) H 04/07/21 08:47 Sodium 135 mmol/L (137-145) L 04/07/21 08:47 Potassium 4.6 mmol/L (3.6-5.0) 04/07/21 08:47 Chloride 105.3 mmol/L (98-107) 04/07/21 08:47 Carbon Dioxide 20 mmol/L (22-30) L 04/07/21 08:47 Anion Gap 14 mmol/L 04/07/21 08:47 BUN 9 mg/dL (7-17) 04/07/21 08:47 Creatinine 0.5 mg/dL (0.6-1.2) L 04/07/21 08:47 Estimated GFR > 60 ml/min 04/07/21 08:47 BUN/Creatinine Ratio 18 % 04/07/21 08:47 Glucose 115 mg/dL (65-100) H 04/07/21 08:47 Lactic Acid 3.50 mmol/L (0.7-2.0) H* 04/04/21 20:54 Calcium 7.6 mg/dL (8.4-10.2) L 04/07/21 08:47 Magnesium 2.00 mg/dL (1.7-2.3) 04/07/21 08:47 Total Bilirubin 0.20 mg/dL (0.1-1.2) 04/07/21 08:47 AST 7 units/L (5-40) 04/07/21 08:47 ALT 6 units/L (7-56) L 04/07/21 08:47 Alkaline Phosphatase 134 units/L (35-129) H 04/07/21 08:47 Total Protein 3.5 g/dL (6.3-8.2) L 04/07/21 08:47 Albumin 1.7 g/dL (3.9-5) L 04/07/21 08:47 Albumin/Globulin Ratio 0.9 % 04/07/21 08:47 Procalcitonin 0.12 ng/mL (<0.15) 04/04/21 20:54 Urine Color Red (Yellow) 04/05/21 00:50 Urine Turbidity Cloudy (Clear) 04/05/21 00:50 Urine pH 6.0 (5.0-7.0) 04/05/21 00:50 Ur Specific [place] 1.035 (1.003-1.030) H 04/05/21 00:50 Urine Protein >500 mg/dL (Negative) 04/05/21 00:50 Urine Glucose (UA) Neg mg/dL (Negative) 04/05/21 00:50 Urine Ketones Neg mg/dL (Negative) 04/05/21 00:50 Urine Blood Lg (Negative) 04/05/21 00:50 Urine Nitrite Pos (Negative) 04/05/21 00:50 Urine Bilirubin Neg (Negative) 04/05/21 00:50 Urine Urobilinogen < 2.0 mg/dL (<2.0) 04/05/21 00:50 Ur Leukocyte Esterase Lg (Negative) 04/05/21 00:50 Urine WBC (Auto) 152.0 /HPF (0.0-6.0) H 04/05/21 00:50 Urine RBC (Auto) > 182.0 /HPF (0.0-6.0) 04/05/21 00:50 U Epithel Cells (Auto) 1.0 /HPF (0-13.0) 04/05/21 00:50 Urine Bacteria (Auto) 1+ /HPF (Negative) 04/05/21 00:50 Urine Mucus 3+ /HPF 04/05/21 00:50 Blood Type O POSITIVE 04/05/21 11:07 Antibody Screen Negative 04/05/21 11:07 Crossmatch See Detail 04/05/21 11:07 Microbiology: Microbiology 04/04/21 20:54 Peripheral/Venous Blood Culture - Preliminary NO GROWTH AFTER 48 HOURS 04/04/21 21:09 Peripheral/Venous Blood Culture - Preliminary NO GROWTH AFTER 48 HOURS Monk/IV: Voiding Method Incontinent Active Medications - Current Medications Current Medications: Generic Name Dose Route Start Last Admin Trade Name Freq PRN Reason Stop Dose Admin Acetaminophen 650 mg 04/04/21 00:21 Acetaminophen 325 Mg Tab PO Q4H PRN Pain MILD(1-3)/Fever >100.5/SALAZAR Hydrocodone Bitart/Acetaminophen 2 each 04/06/21 14:42 Hydrocodone/Acetaminophen 5-325 Mg Tab PO Q4H PRN Pain , Severe (7-10) Hydrocodone Bitart/Acetaminophen 1 each 04/06/21 14:42 04/07/21 04:40 Hydrocodone/Acetaminophen 5-325 Mg Tab PO 1 each Q4H PRN Administration Pain, Moderate (4-6) Albuterol 2.5 mg 04/04/21 02:00 Albuterol 2.5 Mg/3 Ml Nebu IH Q3HRT PRN Shortness Of Breath Albuterol/Ipratropium 1 ampul 04/06/21 08:00 04/07/21 09:20 Ipratropium/Albuterol Sulfate 3 Ml Ampul.Neb IH 1 ampul TIDRT [facility] Administration Atorvastatin Calcium 40 mg 04/04/21 22:00 04/06/21 22:58 Atorvastatin 40 Mg Tab PO 40 mg QHS [facility] Administration Cholestyramine Resin 4 gm 04/05/21 12:00 04/07/21 11:03 Cholestyramine (With Sugar) 4 Gm Packet PO 4 gm BID [facility] Administration Ceftriaxone Sodium 2 gm in 100 mls @ 200 mls/hr 04/06/21 11:00 04/07/21 11:01 Rocephin/Ns 2 Gm/100 Ml IV 200 mls/hr Q24H [facility] Administration Protocol Meclizine HCl 25 mg 04/04/21 01:00 Meclizine 25 Mg Tab PO Q8H PRN Vertigo Ondansetron HCl 4 mg 04/04/21 01:00 Ondansetron 4 Mg/2 Ml Inj IV Q8H PRN Nausea And Vomiting Pantoprazole Sodium 20 mg 04/06/21 15:00 04/07/21 07:45 Pantoprazole 20 Mg Tab PO 20 mg QDAC [facility] Administration Rivaroxaban 15 mg 04/06/21 13:58 04/07/21 11:02 Rivaroxaban 15 Mg Tab PO 04/26/21 17:01 15 mg BIDDIAB [facility] Administration Protocol Rivaroxaban 20 mg 04/27/21 08:00 Rivaroxaban 20 Mg Tab PO QPMDIAB [facility] Protocol Sodium Chloride 10 ml 04/04/21 10:00 04/07/21 11:03 Sodium Chloride 0.9% 10 Ml Flush Syringe IV 10 ml BID [facility] Administration Sodium Chloride 10 ml 04/04/21 01:00 Sodium Chloride 0.9% 10 Ml Flush Syringe IV PRN PRN LINE FLUSH
--- NOTE | 2021-04-07 12:24 | Progress Note ---
Assessment and Plan 66-year-old female status post IVC and bilateral iliofemoral DVT thrombectomy with excellent technical result. Continue anticoagulation with Xarelto. Xarelto will be provided for the patient so she will have Xarelto upon discharge. Unfortunately, patient has copious chronic diarrhea which is limiting her ability to ambulate. She also has a severely low albumin which is contributing to her swelling and should be addressed. Suspect this is due to chronic diarrhea but unclear of complete etiology. Patient is severely deconditioned. She will need physical therapy evaluation but I suspect she will need to go to a subacute rehab. Subjective Date of service: 04/07/21 Interval history: Left leg is feeling better. Right thigh still remains somewhat heavy. Successful thrombectomy performed yesterday. Bandages removed and replaced. Stitches removed. Objective - Constitutional Vitals: Vital Signs - 12hr 04/07/21 04/07/21 04/07/21 03:00 03:50 04:00 Temperature 98.7 F Pulse Rate 120 H 110 H Pulse Rate [ Anterior Bilateral Throughout] Respiratory 18 Rate Respiratory Rate [Anterior Bilateral Throughout] Blood Pressure 111/62 O2 Sat by Pulse 97 97 Oximetry 04/07/21 04/07/21 09:20 09:23 Temperature Pulse Rate Pulse Rate [ 117 H Anterior Bilateral Throughout] Respiratory Rate Respiratory 18 Rate [Anterior Bilateral Throughout] Blood Pressure O2 Sat by Pulse 95 Oximetry General appearance: Present: no acute distress - EENT Eyes: EOM intact ENT: hearing intact - Respiratory Respiratory effort: normal Extremities: normal temperature, normal color Extremity abnormal: edema (Decreased from yesterday, right thigh still has some associated swelling.) - Gastrointestinal General gastrointestinal: Present: soft, non-tender - Psychiatric Psychiatric: cooperative - Labs CBC & Chem 7: 04/07/21 08:47 04/07/21 08:47 Labs: Abnormal lab results 04/05/21 04/06/21 04/06/21 Range/Units 11:07 23:28 23:28 WBC 22.9 H (4.5-11.0) K/mm3 RBC 2.76 L (3.65-5.03) M/mm3 Hgb 7.4 L (10.1-14.3) gm/dl Hct 25.3 L (30.3-42.9) % MCH 27 L (28-32) pg MCHC 29 L (30-34) % RDW 21.1 H (13.2-15.2) % Plt Count 620 H (140-440) K/mm3 Seg Neuts % (Manual) 91.0 H (40.0-70.0) % Lymphocytes % (Manual) 9.0 L (13.4-35.0) % Seg Neutrophils # Man 20.8 H (1.8-7.7) K/mm3 PT (12.2-14.9) Sec. INR (0.87-1.13) APTT (24.2-36.6) Sec. Heparin Anti-Xa Level (0.3-0.7) U.I./ml Sodium 136 L (137-145) mmol/L Chloride 107.5 H (98-107) mmol/L Carbon Dioxide 17 L (22-30) mmol/L Creatinine 0.4 L (0.6-1.2) mg/dL Glucose 129 H (65-100) mg/dL Calcium 7.4 L (8.4-10.2) mg/dL ALT 6 L (7-56) units/L Alkaline Phosphatase (35-129) units/L Total Protein 3.7 L (6.3-8.2) g/dL Albumin 1.6 L (3.9-5) g/dL Crossmatch See Detail 04/06/21 04/07/21 04/07/21 Range/Units 23:28 08:47 08:47 WBC 17.2 H (4.5-11.0) K/mm3 RBC 2.45 L (3.65-5.03) M/mm3 Hgb 6.8 L (10.1-14.3) gm/dl Hct 22.3 L (30.3-42.9) % MCH (28-32) pg MCHC (30-34) % RDW 21.3 H (13.2-15.2) % Plt Count 492 H (140-440) K/mm3 Seg Neuts % (Manual) 80.0 H (40.0-70.0) % Lymphocytes % (Manual) 13.0 L (13.4-35.0) % Seg Neutrophils # Man 13.8 H (1.8-7.7) K/mm3 PT 28.1 H (12.2-14.9) Sec. INR 2.39 H (0.87-1.13) APTT 38.0 H (24.2-36.6) Sec. Heparin Anti-Xa Level > 2.00 H (0.3-0.7) U.I./ml Sodium (137-145) mmol/L Chloride (98-107) mmol/L Carbon Dioxide (22-30) mmol/L Creatinine (0.6-1.2) mg/dL Glucose (65-100) mg/dL Calcium (8.4-10.2) mg/dL ALT (7-56) units/L Alkaline Phosphatase (35-129) units/L Total Protein (6.3-8.2) g/dL Albumin (3.9-5) g/dL Crossmatch 04/07/21 Range/Units 08:47 WBC (4.5-11.0) K/mm3 RBC (3.65-5.03) M/mm3 Hgb (10.1-14.3) gm/dl Hct (30.3-42.9) % MCH (28-32) pg MCHC (30-34) % RDW (13.2-15.2) % Plt Count (140-440) K/mm3 Seg Neuts % (Manual) (40.0-70.0) % Lymphocytes % (Manual) (13.4-35.0) % Seg Neutrophils # Man (1.8-7.7) K/mm3 PT (12.2-14.9) Sec. INR (0.87-1.13) APTT (24.2-36.6) Sec. Heparin Anti-Xa Level (0.3-0.7) U.I./ml Sodium 135 L (137-145) mmol/L Chloride (98-107) mmol/L Carbon Dioxide 20 L (22-30) mmol/L Creatinine 0.5 L (0.6-1.2) mg/dL Glucose 115 H (65-100) mg/dL Calcium 7.6 L (8.4-10.2) mg/dL ALT 6 L (7-56) units/L Alkaline Phosphatase 134 H (35-129) units/L Total Protein 3.5 L (6.3-8.2) g/dL Albumin 1.7 L (3.9-5) g/dL Crossmatch Medications & Allergies - Medications Allergies/Adverse Reactions: Allergies lisinopril Allergy (Severe, Verified 04/03/21 16:26) Anaphylaxis Patient says she has no allergies Home Medications: Home Medications Medication Instructions Recorded Confirmed Last Taken Type Apixaban [Eliquis] 5 mg PO Q12HR #60 tablet 03/05/21 Unknown Rx AtorvaSTATin [Lipitor] 40 mg PO QHS #30 tablet 03/05/21 Unknown Rx Ibuprofen [Motrin 800 MG tab] 800 mg PO Q8HR PRN tablet 03/05/21 Unknown Rx Meclizine [Antivert] 25 mg PO Q8H PRN #30 tablet 03/05/21 Unknown Rx Active Medications: Generic Name Dose Route Start Last Admin Trade Name Freq PRN Reason Stop Dose Admin Acetaminophen 650 mg 04/04/21 00:21 Acetaminophen 325 Mg Tab PO Q4H PRN Pain MILD(1-3)/Fever >100.5/SALAZAR Hydrocodone Bitart/Acetaminophen 1 each 04/06/21 14:42 04/07/21 04:40 Hydrocodone/Acetaminophen 5-325 Mg Tab PO 1 each Q4H PRN Administration Pain, Moderate (4-6) Albuterol 2.5 mg 04/04/21 02:00 Albuterol 2.5 Mg/3 Ml Nebu IH Q3HRT PRN Shortness Of Breath Albuterol/Ipratropium 1 ampul 04/06/21 08:00 04/07/21 09:20 Ipratropium/Albuterol Sulfate 3 Ml Ampul.Neb IH 1 ampul TIDRT GIA Administration Atorvastatin Calcium 40 mg 04/04/21 22:00 04/06/21 22:58 Atorvastatin 40 Mg Tab PO 40 mg QHS GIA Administration Cholestyramine Resin 4 gm 04/05/21 12:00 04/07/21 11:03 Cholestyramine (With Sugar) 4 Gm Packet PO 4 gm BID GIA Administration Ceftriaxone Sodium 2 gm in 100 mls @ 200 mls/hr 04/06/21 11:00 04/07/21 11:01 Rocephin/Ns 2 Gm/100 Ml IV 200 mls/hr Q24H GIA Administration Protocol Sodium Chloride 500 mls @ 0 mls/hr 04/07/21 11:09 Nacl 0.9% 500 Ml IV ONCE GIA As Directed Meclizine HCl 25 mg 04/04/21 01:00 Meclizine 25 Mg Tab PO Q8H PRN Vertigo Ondansetron HCl 4 mg 04/04/21 01:00 Ondansetron 4 Mg/2 Ml Inj IV Q8H PRN Nausea And Vomiting Pantoprazole Sodium 20 mg 04/06/21 15:00 04/07/21 07:45 Pantoprazole 20 Mg Tab PO 20 mg QDAC GIA Administration Rivaroxaban 15 mg 04/06/21 13:58 04/07/21 11:02 Rivaroxaban 15 Mg Tab PO 04/26/21 17:01 15 mg BIDDIAB GIA Administration Protocol Rivaroxaban 20 mg 04/27/21 08:00 Rivaroxaban 20 Mg Tab PO QPMDIAB GIA Protocol Sodium Chloride 10 ml 04/04/21 10:00 04/07/21 11:03 Sodium Chloride 0.9% 10 Ml Flush Syringe IV 10 ml BID GIA Administration Sodium Chloride 10 ml 04/04/21 01:00 Sodium Chloride 0.9% 10 Ml Flush Syringe IV PRN PRN LINE FLUSH
--- NOTE | 2021-04-07 15:01 | Gastroenterology Progress Note ---
Assessment and Plan 1. GI: pt w/ recent colitis but not most recent ct scan reports loose stools with fecal urgency - symptoms overall improved - continue Questran bid - diet as tolerated - no plans to scope - other issues per IR and ciara team - will follow Subjective Date of service: 04/07/21 Interval history: - reports GI symptoms overall improved Objective - Constitutional Vitals: Temp Pulse Resp BP Pulse Ox 98.7 F 117 H 18 111/62 95 04/07/21 03:50 04/07/21 09:20 04/07/21 09:20 04/07/21 03:50 04/07/21 09:23 General appearance: no acute distress - EENT Eyes: PERRL - Respiratory Respiratory: bilateral: CTA - Cardiovascular Rhythm: regular Heart Sounds: Present: S1 & S2 - Gastrointestinal General gastrointestinal: Present: soft, non-tender, non-distended - Labs CBC & Chem 7: 04/07/21 08:47 04/07/21 08:47 Labs: Laboratory Results - last 24 hr 04/05/21 04/06/21 04/06/21 11:07 23:28 23:28 WBC 22.9 H RBC 2.76 L Hgb 7.4 L Hct 25.3 L MCV 92 MCH 27 L MCHC 29 L RDW 21.1 H Plt Count 620 H Lymph % (Auto) [place] % (Auto) Eos % (Auto) Baso % (Auto) Lymph # (Auto) [place] # (Auto) Eos # (Auto) Baso # (Auto) Add Manual Diff Complete Total Counted 100 Seg Neutrophils % Seg Neuts % (Manual) 91.0 H Band Neutrophils % 0 Lymphocytes % (Manual) 9.0 L Reactive Lymphs % (Man) 0 Monocytes % (Manual) 0 Eosinophils % (Manual) 0 Basophils % (Manual) 0 Metamyelocytes % 0 Myelocytes % 0 Promyelocytes % 0 Blast Cells % 0 Nucleated RBC % Not Reportable Seg Neutrophils # Seg Neutrophils # Man 20.8 H Band Neutrophils # 0.0 Lymphocytes # (Manual) 2.1 Abs React Lymphs (Man) 0.0 Monocytes # (Manual) 0.0 Eosinophils # (Manual) 0.0 Basophils # (Manual) 0.0 Metamyelocytes # 0.0 Myelocytes # 0.0 Promyelocytes # 0.0 Blast Cells # 0.0 WBC Morphology Not Reportable Hypersegmented Neuts Not Reportable Hyposegmented Neuts Not Reportable Hypogranular Neuts Not Reportable Smudge Cells Not Reportable Toxic Granulation Not Reportable Toxic Vacuolation Not Reportable Dohle Bodies Not Reportable Pelger-Huet Anomaly Not Reportable Lisandro Rods Not Reportable Platelet Estimate Consistent w auto Clumped Platelets Not Reportable Plt Clumps, EDTA Not Reportable Large Platelets Not Reportable Giant Platelets Not Reportable Platelet Satelliting Not Reportable Plt Morphology Comment Not Reportable RBC Morphology Not Reportable Dimorphic RBCs Not Reportable Polychromasia Not Reportable Hypochromasia Not Reportable Poikilocytosis Not Reportable Anisocytosis 1+ Microcytosis Not Reportable Macrocytosis Not Reportable Spherocytes Not Reportable Pappenheimer Bodies Not Reportable Sickle Cells Not Reportable Target Cells Not Reportable Tear Drop Cells Not Reportable Ovalocytes Not Reportable Helmet Cells Not Reportable Steele-Chama Bodies Not Reportable [place] Rings Not Reportable [place] Cells Not Reportable Bite Cells Not Reportable Crenated Cell Not Reportable Elliptocytes Not Reportable Acanthocytes (Spur) Not Reportable Rouleaux Not Reportable Hemoglobin C Crystals Not Reportable Schistocytes Not Reportable Malaria parasites Not Reportable [place] Bodies Not Reportable Hem Pathologist Commnt No PT INR APTT Heparin Anti-Xa Level Sodium 136 L Potassium 4.0 Chloride 107.5 H Carbon Dioxide 17 L Anion Gap 16 BUN 7 Creatinine 0.4 L Estimated GFR > 60 BUN/Creatinine Ratio 18 Glucose 129 H Calcium 7.4 L Magnesium Total Bilirubin 0.30 AST 10 ALT 6 L Alkaline Phosphatase 111 Total Protein 3.7 L Albumin 1.6 L Albumin/Globulin Ratio 0.8 Blood Type O POSITIVE Antibody Screen Negative Crossmatch See Detail 04/06/21 04/07/21 04/07/21 23:28 08:47 08:47 WBC 17.2 H RBC 2.45 L Hgb 6.8 L Hct 22.3 L MCV 91 MCH 28 MCHC 31 RDW 21.3 H Plt Count 492 H Lymph % (Auto) Corduroy Cutter Operator [place] % (Auto) Corduroy Cutter Operator Eos % (Auto) Corduroy Cutter Operator Baso % (Auto) Corduroy Cutter Operator Lymph # (Auto) Corduroy Cutter Operator [place] # (Auto) Corduroy Cutter Operator Eos # (Auto) Corduroy Cutter Operator Baso # (Auto) Corduroy Cutter Operator Add Manual Diff Complete Total Counted 100 Seg Neutrophils % Corduroy Cutter Operator Seg Neuts % (Manual) 80.0 H Band Neutrophils % 1.0 Lymphocytes % (Manual) 13.0 L Reactive Lymphs % (Man) 0 Monocytes % (Manual) 4.0 Eosinophils % (Manual) 0 Basophils % (Manual) 0 Metamyelocytes % 2.0 Myelocytes % 0 Promyelocytes % 0 Blast Cells % 0 Nucleated RBC % Not Reportable Seg Neutrophils # Corduroy Cutter Operator Seg Neutrophils # Man 13.8 H Band Neutrophils # 0.2 Lymphocytes # (Manual) 2.2 Abs React Lymphs (Man) 0.0 Monocytes # (Manual) 0.7 Eosinophils # (Manual) 0.0 Basophils # (Manual) 0.0 Metamyelocytes # 0.3 Myelocytes # 0.0 Promyelocytes # 0.0 Blast Cells # 0.0 WBC Morphology Not Reportable Hypersegmented Neuts Not Reportable Hyposegmented Neuts Not Reportable Hypogranular Neuts Not Reportable Smudge Cells Not Reportable Toxic Granulation Not Reportable Toxic Vacuolation Not Reportable Dohle Bodies Not Reportable Pelger-Huet Anomaly Not Reportable Lisandro Rods Not Reportable Platelet Estimate Consistent w auto Clumped Platelets Not Reportable Plt Clumps, EDTA Not Reportable Large Platelets Not Reportable Giant Platelets Not Reportable Platelet Satelliting Not Reportable Plt Morphology Comment Not Reportable RBC Morphology Not Reportable Dimorphic RBCs Not Reportable Polychromasia Few Hypochromasia 1+ Poikilocytosis Not Reportable Anisocytosis 1+ Microcytosis Not Reportable Macrocytosis Not Reportable Spherocytes Not Reportable Pappenheimer Bodies Not Reportable Sickle Cells Not Reportable Target Cells Not Reportable Tear Drop Cells Not Reportable Ovalocytes Not Reportable Helmet Cells Not Reportable Steele-Chama Bodies Not Reportable [place] Rings Not Reportable [place] Cells Not Reportable Bite Cells Not Reportable Crenated Cell Not Reportable Elliptocytes Not Reportable Acanthocytes (Spur) Not Reportable Rouleaux Not Reportable Hemoglobin C Crystals Not Reportable Schistocytes Not Reportable Malaria parasites Not Reportable [place] Bodies Not Reportable Hem Pathologist Commnt No PT 28.1 H INR 2.39 H APTT 38.0 H Heparin Anti-Xa Level > 2.00 H Sodium Potassium Chloride Carbon Dioxide Anion Gap BUN Creatinine Estimated GFR BUN/Creatinine Ratio Glucose Calcium Magnesium Total Bilirubin AST ALT Alkaline Phosphatase Total Protein Albumin Albumin/Globulin Ratio Blood Type Antibody Screen Crossmatch 04/07/21 08:47 WBC RBC Hgb Hct MCV MCH MCHC RDW Plt Count Lymph % (Auto) [place] % (Auto) Eos % (Auto) Baso % (Auto) Lymph # (Auto) [place] # (Auto) Eos # (Auto) Baso # (Auto) Add Manual Diff Total Counted Seg Neutrophils % Seg Neuts % (Manual) Band Neutrophils % Lymphocytes % (Manual) Reactive Lymphs % (Man) Monocytes % (Manual) Eosinophils % (Manual) Basophils % (Manual) Metamyelocytes % Myelocytes % Promyelocytes % Blast Cells % Nucleated RBC % Seg Neutrophils # Seg Neutrophils # Man Band Neutrophils # Lymphocytes # (Manual) Abs React Lymphs (Man) Monocytes # (Manual) Eosinophils # (Manual) Basophils # (Manual) Metamyelocytes # Myelocytes # Promyelocytes # Blast Cells # WBC Morphology Hypersegmented Neuts Hyposegmented Neuts Hypogranular Neuts Smudge Cells Toxic Granulation Toxic Vacuolation Dohle Bodies Pelger-Huet Anomaly Lisandro Rods Platelet Estimate Clumped Platelets Plt Clumps, EDTA Large Platelets Giant Platelets Platelet Satelliting Plt Morphology Comment RBC Morphology Dimorphic RBCs Polychromasia Hypochromasia Poikilocytosis Anisocytosis Microcytosis Macrocytosis Spherocytes Pappenheimer Bodies Sickle Cells Target Cells Tear Drop Cells Ovalocytes Helmet Cells Steele-Chama Bodies [place] Rings [place] Cells Bite Cells Crenated Cell Elliptocytes Acanthocytes (Spur) Rouleaux Hemoglobin C Crystals Schistocytes Malaria parasites [place] Bodies Hem Pathologist Commnt PT INR APTT Heparin Anti-Xa Level Sodium 135 L Potassium 4.6 Chloride 105.3 Carbon Dioxide 20 L Anion Gap 14 BUN 9 Creatinine 0.5 L Estimated GFR > 60 BUN/Creatinine Ratio 18 Glucose 115 H Calcium 7.6 L Magnesium 2.00 Total Bilirubin 0.20 AST 7 ALT 6 L Alkaline Phosphatase 134 H Total Protein 3.5 L Albumin 1.7 L Albumin/Globulin Ratio 0.9 Blood Type Antibody Screen Crossmatch
[2021-04-08 07:03] LABS: Basophils % (Auto) 0.5 % (0.0-1.8); Eosinophils # (Auto) 0.1 K/mm3 (0.0-0.4); Eosinophils % (Auto) 1.4 % (0.0-4.3); Hemoglobin 6.4 gm/dl (10.1-14.3); Lymphocytes # (Auto) 1.6 K/mm3 (1.2-5.4); Lymphocytes % (Auto) 16.4 % (13.4-35.0); Mean Corpuscular HGB Conc 32 % (30-34); Mean Corpuscular Volume 90 fl (79-97); Monocytes # (Auto) 0.5 K/mm3 (0.0-0.8); Platelet Count 402 K/mm3 (140-440); Red Blood Count 2.23 M/mm3 (3.65-5.03)
[2021-04-08 07:15] LABS: INR 4.51 (0.87-1.13)
[2021-04-08 07:16] LABS: Blood Urea Nitrogen 7 mg/dL (7-17); Calcium 7.1 mg/dL (8.4-10.2); Hemolysis Index 4
[2021-04-08 07:28] LABS: BUN/Creatinine Ratio 18
[2021-04-08] MEDS ORDERED: IPRATROPIUM/ALBUTEROL SULFATE 3 ML AMPUL.NEB IH SCH (08:00)
[2021-04-08] MEDS: RIVAROXABAN 15 MG TAB PO SCH ×2 (08:22→17:13)
[2021-04-08] MEDS: PANTOPRAZOLE 20 MG TAB PO SCH (08:23)
[2021-04-08] MEDS: CHOLESTYRAMINE (WITH SUGAR) 4 GM PACKET PO SCH ×2 (10:31→22:20)
[2021-04-08] MEDS: cefTRIAXone/NS 2 GM/100 ML 2 GM/100 ML BAG IV SCH (11:31)
--- NOTE | 2021-04-08 12:20 | Discharge Summary ---
<JUSTUS CANTRELL Echo - Last Filed: 04/08/21 12:13> Providers - Providers Date of Admission: 04/04/21 00:21 Date of discharge: 04/08/21 Attending physician: JUSTUS CANTRELL 04/04/21 00:21 Consult to Physician [CONS] Routine Comment: Consulting Provider: DIONNE RIOS Physician Instructions: Reason For Exam: dvt 04/04/21 16:36 Consult to Physician [CONS] Routine Comment: Consulting Provider: CLYDE GIORDANO Physician Instructions: Reason For Exam: Chronic diarrhea, "colitis" 04/07/21 12:25 Physical Therapy Evaluation and Treat [CONS] Routine Comment: Reason For Exam: eval and treat 04/07/21 16:28 Consult to Case Management [CONS] Routine Services Needed at Discharge: Physical Therapy Comment:: subacute rehab if possible Primary care physician: SAGGER MAKER Hospitalization Reason for admission: Bilateral DVT, dyspnea Condition: Good Hospital course: 66-year-old female presented with a chief complaint bilateral DVTs.Patient then had COVID, and her SOB worsened. Patient admitted to [facility] with SOB with oxygen dependence and PE. Ultimately underwent PE thrombectomy and SOB improved. Then patient was discharged, had no anticoagulation for 1 week, then started on warfarin and levels not being checked for 3 weeks. Patient complained of severe lower extremity swelling. RLE DVT study performed at bedside demonstrating CFV thrombus. Patient was sent to ER for severe swelling with DVT (DVT not previously present). Initially INR was 14.5 . Case discussed with vascular surgeon, Dr. Rios who recommended to give vitamin K 10 mg IM x1 dose and serial PT/INR. He recommended. starting heparin infusion once INR drops to 2.0 and will need a thrombectomy. Dr. Rios reviewed ultrasound which demonstrating right common femoral vein thrombus and left superficial femoral vein thrombus. Dr. Rios then performed successful bilateral DVT and IVC thrombectomy and angioplasty. Thrombus essentially all removed. The patient was then transition from heparin to Xarelto. Other complications during hospital stay included chronic diarrhea which limits her ability to ambulate. Patient also was noted to to be severely hypoalbuminemic which is contributing to her swelling and should be addressed prior to discharge. Patient has been evaluated by GI as an outpatient with colonoscopy. Patient will need further follow-up as an outpatient. Patient is severely deconditioned and will likely need rehab placement. Await PT evaluation. On 04/08/2021, patient was noted to have a hemoglobin of 6.4 and will receive 1 unit PRBCs. Case management reports that insurance is authorized for patient be transferred into a hospital within network. Thus, patient will be discharged and transferred to in network hospital when bed available. Dedicated discharge time 35 minutes Disposition: 02 SHORT TERM HOSPITAL Final Discharge Diagnosis (Prints w/discharge instructions): IVC and bilateral iliofemoral DVT thrombectomy, hypoalbuminemia, deconditioning, chronic diarrhea, fecal urgency, chronic anemia, supratherapeutic INR, recent PE, leukocytosis, UTI Core Measure Documentation - Palliative Care Palliative Care/ Comfort Measures: Not Applicable - Core Measures Any of the following diagnoses?: DVT/PE - VTE Discharge Requirements Deep Vein Thrombosis/Pulmonary Embolism Present on Admission: Yes Has pt received <5 days of overlap therapy or INR<2.0: No Anticoagulant overlap therapy prescribed at discharge: No Contraindication No Overlap Therapy order at DC: Not Indicated Exam - Constitutional Vitals: Temp Pulse Resp BP Pulse Ox 98.1 F 110 H 18 104/61 96 04/08/21 10:15 04/08/21 10:17 04/08/21 10:15 04/08/21 10:15 04/08/21 10:17 General appearance: Present: no acute distress, well-nourished - EENT Eyes: Present: PERRL ENT: hearing intact, clear oral mucosa - Neck Neck: Present: supple, normal ROM - Respiratory Respiratory effort: normal Respiratory: bilateral: CTA - Cardiovascular Heart Sounds: Present: S1 & S2. Absent: rub, click - Extremities Extremities: pulses symmetrical, No edema Peripheral Pulses: within normal limits - Abdominal General gastrointestinal: Present: soft, non-tender, non-distended, normal bowel sounds Female genitourinary: Present: normal - Integumentary Integumentary: Present: clear, warm, dry - Musculoskeletal Musculoskeletal: gait normal, strength equal bilaterally - Psychiatric Psychiatric: appropriate mood/affect, intact judgment & insight - Neurologic Neurologic: CNII-XII intact, moves all extremities Plan Activity: advance as tolerated Weight Bearing Status: Weight Bear as Tolerated Diet: regular Follow up with: PRIMARY MD KEN [Primary Care Provider] - 3-5 Days DIONNE RIOS MD [Staff Physician] - 7 Days <DIONNE RIOS - Last Filed: 04/08/21 14:34> Providers - Providers Date of Admission: 04/04/21 00:21 Attending physician: JUSTUS CANTRELL 04/04/21 00:21 Consult to Physician [CONS] Routine Comment: Consulting Provider: DIONNE RIOS Physician Instructions: Reason For Exam: dvt 04/04/21 16:36 Consult to Physician [CONS] Routine Comment: Consulting Provider: CLYDE GIORDANO Physician Instructions: Reason For Exam: Chronic diarrhea, "colitis" 04/07/21 12:25 Physical Therapy Evaluation and Treat [CONS] Routine Comment: Reason For Exam: eval and treat 04/07/21 16:28 Consult to Case Management [CONS] Routine Services Needed at Discharge: Physical Therapy Comment:: subacute rehab if possible Primary care physician: SAGGER MAKER Exam - Constitutional Vitals: Temp Pulse Resp BP Pulse Ox 98.1 F 109 H 16 111/69 97 04/08/21 10:15 04/08/21 13:20 04/08/21 13:19 04/08/21 10:33 04/08/21 13:20
--- NOTE | 2021-04-08 16:51 | Gastroenterology Progress Note ---
Assessment and Plan GI: h/o colitis now loose stools - continue Questran bid - diet as tolerated - f/u as outpt for continued management - will sign off, call if needed Subjective Date of service: 04/08/21 Interval history: - reports improved but continued loose stools Objective - Constitutional Vitals: Temp Pulse Resp BP Pulse Ox 98.1 F 109 H 16 111/69 95 04/08/21 10:15 04/08/21 13:20 04/08/21 13:19 04/08/21 10:33 04/08/21 15:00 General appearance: no acute distress - EENT Eyes: PERRL - Respiratory Respiratory: bilateral: CTA - Cardiovascular Rhythm: regular Heart Sounds: Present: S1 & S2 - Gastrointestinal General gastrointestinal: Present: soft, non-tender, non-distended - Labs CBC & Chem 7: 04/08/21 06:47 04/08/21 06:47 Labs: Laboratory Results - last 24 hr 04/05/21 04/08/21 04/08/21 11:07 06:47 06:47 WBC 9.5 RBC 2.23 L Hgb 6.4 L Hct 20.0 L MCV 90 MCH 29 MCHC 32 RDW 20.0 H Plt Count 402 Lymph % (Auto) 16.4 [place] % (Auto) 5.0 Eos % (Auto) 1.4 Baso % (Auto) 0.5 Lymph # (Auto) 1.6 [place] # (Auto) 0.5 Eos # (Auto) 0.1 Baso # (Auto) 0.0 Seg Neutrophils % 76.7 H Seg Neutrophils # 7.3 PT INR Sodium 133 L Potassium 4.3 Chloride 103.8 Carbon Dioxide 21 L Anion Gap 13 BUN 7 Creatinine 0.4 L Estimated GFR > 60 BUN/Creatinine Ratio 18 Glucose 85 Calcium 7.1 L Blood Type O POSITIVE Antibody Screen Negative Crossmatch See Detail 04/08/21 06:47 WBC RBC Hgb Hct MCV MCH MCHC RDW Plt Count Lymph % (Auto) [place] % (Auto) Eos % (Auto) Baso % (Auto) Lymph # (Auto) [place] # (Auto) Eos # (Auto) Baso # (Auto) Seg Neutrophils % Seg Neutrophils # PT 46.0 H INR 4.51 H Sodium Potassium Chloride Carbon Dioxide Anion Gap BUN Creatinine Estimated GFR BUN/Creatinine Ratio Glucose Calcium Blood Type Antibody Screen Crossmatch
[2021-04-09] MEDS: PANTOPRAZOLE 20 MG TAB PO SCH (09:01)
[2021-04-09] MEDS: RIVAROXABAN 15 MG TAB PO SCH ×2 (09:01→17:38)
[2021-04-09] MEDS: CHOLESTYRAMINE (WITH SUGAR) 4 GM PACKET PO SCH ×2 (09:02→21:45)
--- NOTE | 2021-04-09 10:28 | Progress Note ---
Assessment and Plan Patient states wraps surrounding popliteal vein puncture sites removed. No significant hematomas or erythema. Patient with ANGIE hose. Reapplied to patient. Patient simply awaiting transfer to in [facility] hospital. Hemoglobin was noted to be 6.4 and 1 additional unit will be transfused. Likely the sequela of patient's recent thrombectomy with aspiration of blood concurrently. Patient is able to be transferred whenever a bed is available for rehab. Subjective Date of service: 04/09/21 Principal diagnosis: Extensive DVT Interval history: Patient awaiting discharge to an in [facility] hospital. She will need rehabilitation. Patient with swollen bilateral lower extremities. Her Román bandages overlying the popliteal fossa puncture sites are intact. Patient complains of swelling however this has not significantly increased since admission. Objective - Constitutional Vitals: Vital Signs - 12hr 04/08/21 04/09/21 04/09/21 23:39 00:00 05:17 Temperature 98.4 F 98.8 F Pulse Rate 118 H 104 H Respiratory 20 19 Rate Blood Pressure 130/83 108/63 O2 Sat by Pulse 97 97 92 Oximetry 04/09/21 08:29 Temperature 99.0 F Pulse Rate 111 H Respiratory 18 Rate Blood Pressure 113/69 O2 Sat by Pulse 94 Oximetry General appearance: Present: no acute distress - EENT Eyes: EOM intact ENT: hearing intact - Neck Neck: normal ROM - Respiratory Respiratory effort: normal Extremity abnormal: edema - Gastrointestinal General gastrointestinal: Present: deferred - Neurologic Neurologic: no focal deficits - Psychiatric Psychiatric: appropriate mood/affect, cooperative - Labs CBC & Chem 7: 04/09/21 07:02 04/09/21 07:02 Labs: Abnormal lab results 04/05/21 04/09/21 Range/Units 11:07 07:02 Creatinine 0.4 L (0.6-1.2) mg/dL Crossmatch See Detail Medications & Allergies - Medications Allergies/Adverse Reactions: Allergies lisinopril Allergy (Severe, Verified 04/03/21 16:26) Anaphylaxis Patient says she has no allergies Home Medications: Home Medications Medication Instructions Recorded Confirmed Last Taken Type AtorvaSTATin [Lipitor] 40 mg PO QHS #30 tablet 03/05/21 Unknown Rx Meclizine [Antivert] 25 mg PO Q8H PRN #30 tablet 03/05/21 Unknown Rx ALBUTEROL NEB's [Proventil 0.083% 2.5 mg IH Q3HRT PRN nebu 04/08/21 Unknown Rx NEBS] Acetaminophen [Acetaminophen TAB] 650 mg PO Q4H PRN tablet 04/08/21 Unknown Rx AtorvaSTATin [Lipitor] 40 mg PO QHS tablet 04/08/21 Unknown Rx Cholestyramine (with Sugar) 4 gm PO BID packet 04/08/21 Unknown Rx [Questran] Pantoprazole [Protonix TAB] 20 mg PO QDAC tablet. 04/08/21 Unknown Rx Rivaroxaban [Xarelto] 15 mg PO BIDDIAB tablet 04/08/21 Unknown Rx Rivaroxaban [Xarelto] 20 mg PO QPMDIAB tablet 04/08/21 Unknown Rx Active Medications: Generic Name Dose Route Start Last Admin Trade Name Freq PRN Reason Stop Dose Admin Acetaminophen 650 mg 04/04/21 00:21 04/08/21 22:25 Acetaminophen 325 Mg Tab PO 650 mg Q4H PRN Administration Pain MILD(1-3)/Fever >100.5/SALAZAR Hydrocodone Bitart/Acetaminophen 1 each 04/06/21 14:42 04/07/21 04:40 Hydrocodone/Acetaminophen 5-325 Mg Tab PO 1 each Q4H PRN Administration Pain, Moderate (4-6) Albuterol 2.5 mg 04/04/21 02:00 Albuterol 2.5 Mg/3 Ml Nebu IH Q3HRT PRN Shortness Of Breath Atorvastatin Calcium 40 mg 04/04/21 22:00 04/08/21 22:20 Atorvastatin 40 Mg Tab PO 40 mg QHS GIA Administration Cholestyramine Resin 4 gm 04/05/21 12:00 04/09/21 09:02 Cholestyramine (With Sugar) 4 Gm Packet PO 4 gm BID GIA Administration Ceftriaxone Sodium 2 gm in 100 mls @ 200 mls/hr 04/06/21 11:00 04/08/21 11:31 Rocephin/Ns 2 Gm/100 Ml IV 04/09/21 10:59 200 mls/hr Q24H GIA Administration Protocol Sodium Chloride 500 mls @ 0 mls/hr 04/07/21 11:09 04/07/21 16:48 Nacl 0.9% 500 Ml IV 500 mls/hr ONCE GIA Administration As Directed Sodium Chloride 500 mls @ 0 mls/hr 04/09/21 10:25 Nacl 0.9% 500 Ml IV 04/09/21 10:26 ONCE ONE As Directed Meclizine HCl 25 mg 04/04/21 01:00 Meclizine 25 Mg Tab PO Q8H PRN Vertigo Ondansetron HCl 4 mg 04/04/21 01:00 Ondansetron 4 Mg/2 Ml Inj IV Q8H PRN Nausea And Vomiting Pantoprazole Sodium 20 mg 04/06/21 15:00 04/09/21 09:01 Pantoprazole 20 Mg Tab PO 20 mg QDAC GIA Administration Rivaroxaban 15 mg 04/06/21 13:58 04/09/21 09:01 Rivaroxaban 15 Mg Tab PO 04/26/21 17:01 15 mg BIDDIAB GIA Administration Protocol Rivaroxaban 20 mg 04/27/21 08:00 Rivaroxaban 20 Mg Tab PO QPMDIAB GIA Protocol Sodium Chloride 10 ml 04/04/21 10:00 04/09/21 09:02 Sodium Chloride 0.9% 10 Ml Flush Syringe IV 10 ml BID GIA Administration Sodium Chloride 10 ml 04/04/21 01:00 Sodium Chloride 0.9% 10 Ml Flush Syringe IV PRN PRN LINE FLUSH
[2021-04-09] MEDS ORDERED: SODIUM CHLORIDE 0.9% 500 ML 500 ML IV SCH (11:00)
--- NOTE | 2021-04-09 12:17 | Progress Note ---
Assessment and Plan Assessment and plan: 66-year-old female present with a chief complaint bilateral DVTs.Patient then had COVID, and her SOB worsened. Patient admitted to [facility] with SOB with oxygen dependence and PE. Ultimately underwent PE thrombectomy and SOB improved. Then patient was discharged, had no anticoagulation for 1 week, then started on warfarin and levels not being checked for 3 weeks. Patient complained of severe lower extremity swelling. RLE DVT study performed at bedside demonstrating CFV thrombus. Patient was sent to ER for severe swelling with DVT (DVT not previously present). Initially INR was 14.5 . Case discussed with vascular surgeon, Dr. Mittal who recommended to give vitamin K 10 mg IM x1 dose and serial PT/INR. He recommends starting heparin infusion once INR drops to 2.0 and will need a thrombectomy. Dr. Mittal reviewed ultrasound which demonstrating right common femoral vein thrombus and left superficial femoral vein thrombus (clearly listed on dietary service aide report and images, unclear why not listed on report). (1) Iliac, common femoral and the superficial femoral venous thrombosis With significant bilateral lower extremities Current Visit: Yes Status: Acute Plan to address problem: Supratherapeutic INR reversed with vitamin K and heparin infusion initiated. Dr Mittal consulted. Patient underwent extensive venous thrombectomy and angioplasty on Tuesday, 04/06. Has sinus tachycardia with BP, postprocedure afebrile. Compression stockings applied postprocedure. (2) chronic anemia Current Visit: Yes Status: Acute Plan to address problem: Could be related to large clot burden. Will monitor and transfuse as needed. No evidence of bruising or abnormal bleeding with a supratherapeutic INR. (3) chronic diarrhea Current Visit: Yes Status: Acute Plan to address problem: Patient reports chronic diarrhea since several months which initially started with some hematochezia according to patient. Recently frequent as she is unable to keep up getting in time to the bathroom. Her mobility is also significantly impaired due to severe low bilateral lower extremity edema from DVT. Patient did not get any GI work-up for this. Consulted GI and started on the Questran powder. Currently no abdominal pains or nausea. Tolerating diet. (4) Supratherapeutic INR Current Visit: Yes Status: Acute Plan to address problem: Warfarin discontinued. Patient was given vitamin K 10 mg Im x1 dose. Transition to heparin drip when the INR less than 2. Dr. Mittal, vascular surgeon consulted and is evaluating/following. Eventually, patient will be discharged home on Xarelto, as per Dr Mittal (5) recent pulmonary embolism Current Visit: Yes Status: Acute Plan to address problem: Patient has history of pulmonary embolism. Status post thrombectomy. Patient presented with supratherapeutic INR. Patient is given vitamin K 10 mg Im x1 dose. transitioned to heparin drip when the INR less than 2. Currently patient is on room air. Will be discharged on Xarelto. (6) leukocytosis, UTI UA consistent with UTI. Will start Rocephin and monitor. Blood cultures negative to date. DVT prophylaxis Current Visit: No Status: Acute Plan to address problem: On heparin infusion. Pepcid 20 mg p.o. twice daily for GI prophylaxis. Patient is a full code 04/07/2021. Patient underwent successful bilateral DVT and IVC thrombectomy and angioplasty yesterday. Keep SCD applied to prevent recurrent DVT and keep flow in leg veins. Keep ANGIE hose on. Transitioned from heparin to Xarelto. Patient with a hemoglobin of 6.8. We will type and cross and transfuse 2 units. Follow-up INR. INR yesterday still supratherapeutic at 2.39 04/08/2021. Continue Xarelto. With regards to the loose stools, GI recommends continuing Questran twice daily. Continue diet as tolerated. Await for placement for rehab. Await physical therapy evaluation for recommendations. Case management reports that patient will need to be transferred to in [facility] per insurance company. 04/09/2021. Await physical therapy evaluation with regards to discharge and possible rehab placement. Follow-up H&H after PRBCs. Continue Questran for loose stools History Interval history: No new issues overnight. Hospitalist Physical - Constitutional Vitals: Temp Pulse Resp BP Pulse Ox 99.0 F 111 H 18 113/69 94 04/09/21 08:29 04/09/21 08:29 04/09/21 08:29 04/09/21 08:29 04/09/21 08:29 General appearance: Present: no acute distress - EENT Eyes: Present: PERRL, EOM intact ENT: hearing intact, clear oral mucosa, dentition normal - Neck Neck: Present: supple, normal ROM - Respiratory Respiratory effort: normal Respiratory: bilateral: CTA - Cardiovascular Rhythm: regular Heart Sounds: Present: S1 & S2. Absent: gallop, rub - Extremities Extremities: no ischemia, No edema, Full ROM - Abdominal General gastrointestinal: soft, non-tender, non-distended, normal bowel sounds - Integumentary Integumentary: Present: clear, warm, dry - Neurologic Neurologic: CNII-XII intact, moves all extremities Results - Labs CBC & Chem 7: 04/09/21 07:02 04/09/21 07:02 Labs: Laboratory Last Values WBC 9.5 K/mm3 (4.5-11.0) 04/08/21 06:47 RBC 2.23 M/mm3 (3.65-5.03) L 04/08/21 06:47 Hgb 6.4 gm/dl (10.1-14.3) L 04/08/21 06:47 Hct 20.0 % (30.3-42.9) L 04/08/21 06:47 MCV 90 fl (79-97) 04/08/21 06:47 MCH 29 pg (28-32) 04/08/21 06:47 MCHC 32 % (30-34) 04/08/21 06:47 RDW 20.0 % (13.2-15.2) H 04/08/21 06:47 Plt Count 419 K/mm3 (140-440) 04/09/21 07:02 Lymph % (Auto) 16.4 % (13.4-35.0) 04/08/21 06:47 Spink % (Auto) 5.0 % (0.0-7.3) 04/08/21 06:47 Eos % (Auto) 1.4 % (0.0-4.3) 04/08/21 06:47 Baso % (Auto) 0.5 % (0.0-1.8) 04/08/21 06:47 Lymph # (Auto) 1.6 K/mm3 (1.2-5.4) 04/08/21 06:47 Spink # (Auto) 0.5 K/mm3 (0.0-0.8) 04/08/21 06:47 Eos # (Auto) 0.1 K/mm3 (0.0-0.4) 04/08/21 06:47 Baso # (Auto) 0.0 K/mm3 (0.0-0.1) 04/08/21 06:47 Add Manual Diff Complete 04/07/21 08:47 Total Counted 100 04/07/21 08:47 Seg Neutrophils % 76.7 % (40.0-70.0) H 04/08/21 06:47 Seg Neuts % (Manual) 80.0 % (40.0-70.0) H 04/07/21 08:47 Band Neutrophils % 1.0 % 04/07/21 08:47 Lymphocytes % (Manual) 13.0 % (13.4-35.0) L 04/07/21 08:47 Reactive Lymphs % (Man) 0 % 04/07/21 08:47 Monocytes % (Manual) 4.0 % (0.0-7.3) 04/07/21 08:47 Eosinophils % (Manual) 0 % (0.0-4.3) 04/07/21 08:47 Basophils % (Manual) 0 % (0.0-1.8) 04/07/21 08:47 Metamyelocytes % 2.0 % 04/07/21 08:47 Myelocytes % 0 % 04/07/21 08:47 Promyelocytes % 0 % 04/07/21 08:47 Blast Cells % 0 % 04/07/21 08:47 Nucleated RBC % Not Reportable 04/07/21 08:47 Seg Neutrophils # 7.3 K/mm3 (1.8-7.7) 04/08/21 06:47 Seg Neutrophils # Man 13.8 K/mm3 (1.8-7.7) H 04/07/21 08:47 Band Neutrophils # 0.2 K/mm3 04/07/21 08:47 Lymphocytes # (Manual) 2.2 K/mm3 (1.2-5.4) 04/07/21 08:47 Abs React Lymphs (Man) 0.0 K/mm3 04/07/21 08:47 Monocytes # (Manual) 0.7 K/mm3 (0.0-0.8) 04/07/21 08:47 Eosinophils # (Manual) 0.0 K/mm3 (0.0-0.4) 04/07/21 08:47 Basophils # (Manual) 0.0 K/mm3 (0.0-0.1) 04/07/21 08:47 Metamyelocytes # 0.3 K/mm3 04/07/21 08:47 Myelocytes # 0.0 K/mm3 04/07/21 08:47 Promyelocytes # 0.0 K/mm3 04/07/21 08:47 Blast Cells # 0.0 K/mm3 04/07/21 08:47 WBC Morphology Not Reportable 04/07/21 08:47 Hypersegmented Neuts Not Reportable 04/07/21 08:47 Hyposegmented Neuts Not Reportable 04/07/21 08:47 Hypogranular Neuts Not Reportable 04/07/21 08:47 Smudge Cells Not Reportable 04/07/21 08:47 Toxic Granulation Not Reportable 04/07/21 08:47 Toxic Vacuolation Not Reportable 04/07/21 08:47 Dohle Bodies Not Reportable 04/07/21 08:47 Pelger-Huet Anomaly Not Reportable 04/07/21 08:47 Lisandro Rods Not Reportable 04/07/21 08:47 Platelet Estimate Consistent w auto 04/07/21 08:47 Clumped Platelets Not Reportable 04/07/21 08:47 Plt Clumps, EDTA Not Reportable 04/07/21 08:47 Large Platelets Not Reportable 04/07/21 08:47 Giant Platelets Not Reportable 04/07/21 08:47 Platelet Satelliting Not Reportable 04/07/21 08:47 Plt Morphology Comment Not Reportable 04/07/21 08:47 RBC Morphology Not Reportable 04/07/21 08:47 Dimorphic RBCs Not Reportable 04/07/21 08:47 Polychromasia Few 04/07/21 08:47 Hypochromasia 1+ 04/07/21 08:47 Poikilocytosis Not Reportable 04/07/21 08:47 Anisocytosis 1+ 04/07/21 08:47 Microcytosis Not Reportable 04/07/21 08:47 Macrocytosis Not Reportable 04/07/21 08:47 Spherocytes Not Reportable 04/07/21 08:47 Pappenheimer Bodies Not Reportable 04/07/21 08:47 Sickle Cells Not Reportable 04/07/21 08:47 Target Cells Not Reportable 04/07/21 08:47 Tear Drop Cells Not Reportable 04/07/21 08:47 Ovalocytes Not Reportable 04/07/21 08:47 Helmet Cells Not Reportable 04/07/21 08:47 [place] Bodies Not Reportable 04/07/21 08:47 Gibson Rings Not Reportable 04/07/21 08:47 [place] Cells Not Reportable 04/07/21 08:47 Bite Cells Not Reportable 04/07/21 08:47 Crenated Cell Not Reportable 04/07/21 08:47 Elliptocytes Not Reportable 04/07/21 08:47 Acanthocytes (Spur) Not Reportable 04/07/21 08:47 Rouleaux Not Reportable 04/07/21 08:47 Hemoglobin C Crystals Not Reportable 04/07/21 08:47 Schistocytes Not Reportable 04/07/21 08:47 Malaria parasites Not Reportable 04/07/21 08:47 [place] Bodies Not Reportable 04/07/21 08:47 Hem Pathologist Commnt No 04/07/21 08:47 PT 46.0 Sec. (12.2-14.9) H 04/08/21 06:47 INR 4.51 (0.87-1.13) H 04/08/21 06:47 APTT 38.0 Sec. (24.2-36.6) H 04/06/21 23:28 Heparin Anti-Xa Level > 2.00 U.I./ml (0.3-0.7) H 04/07/21 08:47 Sodium 133 mmol/L (137-145) L 04/08/21 06:47 Potassium 4.3 mmol/L (3.6-5.0) 04/08/21 06:47 Chloride 103.8 mmol/L (98-107) 04/08/21 06:47 Carbon Dioxide 21 mmol/L (22-30) L 04/08/21 06:47 Anion Gap 13 mmol/L 04/08/21 06:47 BUN 7 mg/dL (7-17) 04/08/21 06:47 Creatinine 0.4 mg/dL (0.6-1.2) L 04/09/21 07:02 Estimated GFR > 60 ml/min 04/09/21 07:02 BUN/Creatinine Ratio 18 % 04/08/21 06:47 Glucose 85 mg/dL (65-100) 04/08/21 06:47 Lactic Acid 3.50 mmol/L (0.7-2.0) H* 04/04/21 20:54 Calcium 7.1 mg/dL (8.4-10.2) L 04/08/21 06:47 Magnesium 2.00 mg/dL (1.7-2.3) 04/07/21 08:47 Total Bilirubin 0.20 mg/dL (0.1-1.2) 04/07/21 08:47 AST 7 units/L (5-40) 04/07/21 08:47 ALT 6 units/L (7-56) L 04/07/21 08:47 Alkaline Phosphatase 134 units/L (35-129) H 04/07/21 08:47 Total Protein 3.5 g/dL (6.3-8.2) L 04/07/21 08:47 Albumin 1.7 g/dL (3.9-5) L 04/07/21 08:47 Albumin/Globulin Ratio 0.9 % 04/07/21 08:47 Procalcitonin 0.12 ng/mL (<0.15) 04/04/21 20:54 Urine Color Red (Yellow) 04/05/21 00:50 Urine Turbidity Cloudy (Clear) 04/05/21 00:50 Urine pH 6.0 (5.0-7.0) 04/05/21 00:50 Ur Specific Anna 1.035 (1.003-1.030) H 04/05/21 00:50 Urine Protein >500 mg/dL (Negative) 04/05/21 00:50 Urine Glucose (UA) Neg mg/dL (Negative) 04/05/21 00:50 Urine Ketones Neg mg/dL (Negative) 04/05/21 00:50 Urine Blood Lg (Negative) 04/05/21 00:50 Urine Nitrite Pos (Negative) 04/05/21 00:50 Urine Bilirubin Neg (Negative) 04/05/21 00:50 Urine Urobilinogen < 2.0 mg/dL (<2.0) 04/05/21 00:50 Ur Leukocyte Esterase Lg (Negative) 04/05/21 00:50 Urine WBC (Auto) 152.0 /HPF (0.0-6.0) H 04/05/21 00:50 Urine RBC (Auto) > 182.0 /HPF (0.0-6.0) 04/05/21 00:50 U Epithel Cells (Auto) 1.0 /HPF (0-13.0) 04/05/21 00:50 Urine Bacteria (Auto) 1+ /HPF (Negative) 04/05/21 00:50 Urine Mucus 3+ /HPF 04/05/21 00:50 Blood Type O POSITIVE 04/09/21 10:46 Antibody Screen Negative 04/09/21 10:46 Crossmatch See Detail 04/09/21 10:46 Microbiology: Microbiology 04/04/21 20:54 Peripheral/Venous Blood Culture - Preliminary NO GROWTH AFTER 4 DAYS 04/04/21 21:09 Peripheral/Venous Blood Culture - Preliminary NO GROWTH AFTER 4 DAYS Monk/IV: Voiding Method Incontinent Active Medications - Current Medications Current Medications: Generic Name Dose Route Start Last Admin Trade Name Freq PRN Reason Stop Dose Admin Acetaminophen 650 mg 04/04/21 00:21 04/08/21 22:25 Acetaminophen 325 Mg Tab PO 650 mg Q4H PRN Administration Pain MILD(1-3)/Fever >100.5/SALAZAR Hydrocodone Bitart/Acetaminophen 1 each 04/06/21 14:42 04/07/21 04:40 Hydrocodone/Acetaminophen 5-325 Mg Tab PO 1 each Q4H PRN Administration Pain, Moderate (4-6) Albuterol 2.5 mg 04/04/21 02:00 Albuterol 2.5 Mg/3 Ml Nebu IH Q3HRT PRN Shortness Of Breath Atorvastatin Calcium 40 mg 04/04/21 22:00 04/08/21 22:20 Atorvastatin 40 Mg Tab PO 40 mg QHS GIA Administration Cholestyramine Resin 4 gm 04/05/21 12:00 04/09/21 09:02 Cholestyramine (With Sugar) 4 Gm Packet PO 4 gm BID GIA Administration Sodium Chloride 500 mls @ 0 mls/hr 04/07/21 11:09 04/07/21 16:48 Nacl 0.9% 500 Ml IV 500 mls/hr ONCE GIA Administration As Directed Sodium Chloride 500 mls @ 0 mls/hr 04/09/21 11:00 Nacl 0.9% 500 Ml IV 04/09/21 21:00 ONCE@1100 GIA As Directed Meclizine HCl 25 mg 04/04/21 01:00 Meclizine 25 Mg Tab PO Q8H PRN Vertigo Ondansetron HCl 4 mg 04/04/21 01:00 Ondansetron 4 Mg/2 Ml Inj IV Q8H PRN Nausea And Vomiting Pantoprazole Sodium 20 mg 04/06/21 15:00 04/09/21 09:01 Pantoprazole 20 Mg Tab PO 20 mg QDAC GIA Administration Rivaroxaban 15 mg 04/06/21 13:58 04/09/21 09:01 Rivaroxaban 15 Mg Tab PO 04/26/21 17:01 15 mg BIDDIAB GIA Administration Protocol Rivaroxaban 20 mg 04/27/21 08:00 Rivaroxaban 20 Mg Tab PO QPMDIAB GIA Protocol Sodium Chloride 10 ml 04/04/21 10:00 04/09/21 09:02 Sodium Chloride 0.9% 10 Ml Flush Syringe IV 10 ml BID GIA Administration Sodium Chloride 10 ml 04/04/21 01:00 Sodium Chloride 0.9% 10 Ml Flush Syringe IV PRN PRN LINE FLUSH
[2021-04-09 14:02] LABS: Hematocrit 28.3 % (30.3-42.9); Hemoglobin 9.2 gm/dl (10.1-14.3)
[2021-04-10 04:48] LABS: Hematocrit 28.3 % (30.3-42.9); Hemoglobin 9.1 gm/dl (10.1-14.3); Mean Corpuscular HGB Conc 32 % (30-34); Mean Corpuscular Volume 88 fl (79-97); Platelet Count 446 K/mm3 (140-440); Red Blood Count 3.21 M/mm3 (3.65-5.03); Red Cell Distribution Width 18.2 % (13.2-15.2)
--- NOTE | 2021-04-10 11:03 | Progress Note ---
Assessment and Plan Assessment and plan: 66-year-old female present with a chief complaint bilateral DVTs.Patient then had COVID, and her SOB worsened. Patient admitted to [facility] with SOB with oxygen dependence and PE. Ultimately underwent PE thrombectomy and SOB improved. Then patient was discharged, had no anticoagulation for 1 week, then started on warfarin and levels not being checked for 3 weeks. Patient complained of severe lower extremity swelling. RLE DVT study performed at bedside demonstrating CFV thrombus. Patient was sent to ER for severe swelling with DVT (DVT not previously present). Initially INR was 14.5 . Case discussed with vascular surgeon, Dr. Mittal who recommended to give vitamin K 10 mg IM x1 dose and serial PT/INR. He recommends starting heparin infusion once INR drops to 2.0 and will need a thrombectomy. Dr. Mittal reviewed ultrasound which demonstrating right common femoral vein thrombus and left superficial femoral vein thrombus (clearly listed on rn med surg report and images, unclear why not listed on report). (1) Iliac, common femoral and the superficial femoral venous thrombosis With significant bilateral lower extremities Current Visit: Yes Status: Acute Plan to address problem: Supratherapeutic INR reversed with vitamin K and heparin infusion initiated. Dr Mittal consulted. Patient underwent extensive venous thrombectomy and angioplasty on Tuesday, 04/06. Has sinus tachycardia with BP, postprocedure afebrile. Compression stockings applied postprocedure. (2) chronic anemia Current Visit: Yes Status: Acute Plan to address problem: Could be related to large clot burden. Will monitor and transfuse as needed. No evidence of bruising or abnormal bleeding with a supratherapeutic INR. (3) chronic diarrhea Current Visit: Yes Status: Acute Plan to address problem: Patient reports chronic diarrhea since several months which initially started with some hematochezia according to patient. Recently frequent as she is unable to keep up getting in time to the bathroom. Her mobility is also significantly impaired due to severe low bilateral lower extremity edema from DVT. Patient did not get any GI work-up for this. Consulted GI and started on the Questran powder. Currently no abdominal pains or nausea. Tolerating diet. (4) Supratherapeutic INR Current Visit: Yes Status: Acute Plan to address problem: Warfarin discontinued. Patient was given vitamin K 10 mg Im x1 dose. Transition to heparin drip when the INR less than 2. Dr. Mittal, vascular surgeon consulted and is evaluating/following. Eventually, patient will be discharged home on Xarelto, as per Dr Mittal (5) recent pulmonary embolism Current Visit: Yes Status: Acute Plan to address problem: Patient has history of pulmonary embolism. Status post thrombectomy. Patient presented with supratherapeutic INR. Patient is given vitamin K 10 mg Im x1 dose. transitioned to heparin drip when the INR less than 2. Currently patient is on room air. Will be discharged on Xarelto. (6) leukocytosis, UTI UA consistent with UTI. Will start Rocephin and monitor. Blood cultures negative to date. DVT prophylaxis Current Visit: No Status: Acute Plan to address problem: On heparin infusion. Pepcid 20 mg p.o. twice daily for GI prophylaxis. Patient is a full code 04/07/2021. Patient underwent successful bilateral DVT and IVC thrombectomy and angioplasty yesterday. Keep SCD applied to prevent recurrent DVT and keep flow in leg veins. Keep ANGIE hose on. Transitioned from heparin to Xarelto. Patient with a hemoglobin of 6.8. We will type and cross and transfuse 2 units. Follow-up INR. INR yesterday still supratherapeutic at 2.39 04/08/2021. Continue Xarelto. With regards to the loose stools, GI recommends continuing Questran twice daily. Continue diet as tolerated. Await for placement for rehab. Await physical therapy evaluation for recommendations. Case management reports that patient will need to be transferred to in [facility] per insurance company. 04/09/2021. Await physical therapy evaluation with regards to discharge and possible rehab placement. Follow-up H&H after PRBCs. Continue Questran for loose stools 04/10/2021. Patient awaiting for SNF placement. History Interval history: No new issues overnight. Hospitalist Physical - Constitutional Vitals: Temp Pulse Resp BP Pulse Ox 98.2 F 109 H 20 106/67 92 04/10/21 04:54 04/10/21 04:54 04/10/21 04:54 04/10/21 04:54 04/10/21 04:54 General appearance: Present: no acute distress - EENT Eyes: Present: PERRL, EOM intact ENT: hearing intact, clear oral mucosa, dentition normal - Neck Neck: Present: supple, normal ROM - Respiratory Respiratory effort: normal Respiratory: bilateral: CTA - Cardiovascular Rhythm: regular Heart Sounds: Present: S1 & S2. Absent: gallop, rub - Extremities Extremities: no ischemia, No edema, Full ROM - Abdominal General gastrointestinal: soft, non-tender, non-distended, normal bowel sounds - Integumentary Integumentary: Present: clear, warm, dry - Neurologic Neurologic: CNII-XII intact, moves all extremities Results - Labs CBC & Chem 7: 04/10/21 04:12 04/09/21 07:02 Labs: Laboratory Last Values WBC 6.7 K/mm3 (4.5-11.0) 04/10/21 04:12 RBC 3.21 M/mm3 (3.65-5.03) L 04/10/21 04:12 Hgb 9.1 gm/dl (10.1-14.3) L 04/10/21 04:12 Hct 28.3 % (30.3-42.9) L 04/10/21 04:12 MCV 88 fl (79-97) 04/10/21 04:12 MCH 28 pg (28-32) 04/10/21 04:12 MCHC 32 % (30-34) 04/10/21 04:12 RDW 18.2 % (13.2-15.2) H 04/10/21 04:12 Plt Count 446 K/mm3 (140-440) H 04/10/21 04:12 Lymph % (Auto) 16.4 % (13.4-35.0) 04/08/21 06:47 Hunt % (Auto) 5.0 % (0.0-7.3) 04/08/21 06:47 Eos % (Auto) 1.4 % (0.0-4.3) 04/08/21 06:47 Baso % (Auto) 0.5 % (0.0-1.8) 04/08/21 06:47 Lymph # (Auto) 1.6 K/mm3 (1.2-5.4) 04/08/21 06:47 Hunt # (Auto) 0.5 K/mm3 (0.0-0.8) 04/08/21 06:47 Eos # (Auto) 0.1 K/mm3 (0.0-0.4) 04/08/21 06:47 Baso # (Auto) 0.0 K/mm3 (0.0-0.1) 04/08/21 06:47 Add Manual Diff Complete 04/07/21 08:47 Total Counted 100 04/07/21 08:47 Seg Neutrophils % 76.7 % (40.0-70.0) H 04/08/21 06:47 Seg Neuts % (Manual) 80.0 % (40.0-70.0) H 04/07/21 08:47 Band Neutrophils % 1.0 % 04/07/21 08:47 Lymphocytes % (Manual) 13.0 % (13.4-35.0) L 04/07/21 08:47 Reactive Lymphs % (Man) 0 % 04/07/21 08:47 Monocytes % (Manual) 4.0 % (0.0-7.3) 04/07/21 08:47 Eosinophils % (Manual) 0 % (0.0-4.3) 04/07/21 08:47 Basophils % (Manual) 0 % (0.0-1.8) 04/07/21 08:47 Metamyelocytes % 2.0 % 04/07/21 08:47 Myelocytes % 0 % 04/07/21 08:47 Promyelocytes % 0 % 04/07/21 08:47 Blast Cells % 0 % 04/07/21 08:47 Nucleated RBC % Not Reportable 04/07/21 08:47 Seg Neutrophils # 7.3 K/mm3 (1.8-7.7) 04/08/21 06:47 Seg Neutrophils # Man 13.8 K/mm3 (1.8-7.7) H 04/07/21 08:47 Band Neutrophils # 0.2 K/mm3 04/07/21 08:47 Lymphocytes # (Manual) 2.2 K/mm3 (1.2-5.4) 04/07/21 08:47 Abs React Lymphs (Man) 0.0 K/mm3 04/07/21 08:47 Monocytes # (Manual) 0.7 K/mm3 (0.0-0.8) 04/07/21 08:47 Eosinophils # (Manual) 0.0 K/mm3 (0.0-0.4) 04/07/21 08:47 Basophils # (Manual) 0.0 K/mm3 (0.0-0.1) 04/07/21 08:47 Metamyelocytes # 0.3 K/mm3 04/07/21 08:47 Myelocytes # 0.0 K/mm3 04/07/21 08:47 Promyelocytes # 0.0 K/mm3 04/07/21 08:47 Blast Cells # 0.0 K/mm3 04/07/21 08:47 WBC Morphology Not Reportable 04/07/21 08:47 Hypersegmented Neuts Not Reportable 04/07/21 08:47 Hyposegmented Neuts Not Reportable 04/07/21 08:47 Hypogranular Neuts Not Reportable 04/07/21 08:47 Smudge Cells Not Reportable 04/07/21 08:47 Toxic Granulation Not Reportable 04/07/21 08:47 Toxic Vacuolation Not Reportable 04/07/21 08:47 Dohle Bodies Not Reportable 04/07/21 08:47 Pelger-Huet Anomaly Not Reportable 04/07/21 08:47 Lisandro Rods Not Reportable 04/07/21 08:47 Platelet Estimate Consistent w auto 04/07/21 08:47 Clumped Platelets Not Reportable 04/07/21 08:47 Plt Clumps, EDTA Not Reportable 04/07/21 08:47 Large Platelets Not Reportable 04/07/21 08:47 Giant Platelets Not Reportable 04/07/21 08:47 Platelet Satelliting Not Reportable 04/07/21 08:47 Plt Morphology Comment Not Reportable 04/07/21 08:47 RBC Morphology Not Reportable 04/07/21 08:47 Dimorphic RBCs Not Reportable 04/07/21 08:47 Polychromasia Few 04/07/21 08:47 Hypochromasia 1+ 04/07/21 08:47 Poikilocytosis Not Reportable 04/07/21 08:47 Anisocytosis 1+ 04/07/21 08:47 Microcytosis Not Reportable 04/07/21 08:47 Macrocytosis Not Reportable 04/07/21 08:47 Spherocytes Not Reportable 04/07/21 08:47 Pappenheimer Bodies Not Reportable 04/07/21 08:47 Sickle Cells Not Reportable 04/07/21 08:47 Target Cells Not Reportable 04/07/21 08:47 Tear Drop Cells Not Reportable 04/07/21 08:47 Ovalocytes Not Reportable 04/07/21 08:47 Helmet Cells Not Reportable 04/07/21 08:47 Steele-Harrington Bodies Not Reportable 04/07/21 08:47 [place] Rings Not Reportable 04/07/21 08:47 [place]roy Cells Not Reportable 04/07/21 08:47 Bite Cells Not Reportable 04/07/21 08:47 Crenated Cell Not Reportable 04/07/21 08:47 Elliptocytes Not Reportable 04/07/21 08:47 Acanthocytes (Spur) Not Reportable 04/07/21 08:47 Rouleaux Not Reportable 04/07/21 08:47 Hemoglobin C Crystals Not Reportable 04/07/21 08:47 Schistocytes Not Reportable 04/07/21 08:47 Malaria parasites Not Reportable 04/07/21 08:47 Wil[place] Bodies Not Reportable 04/07/21 08:47 Hem Pathologist Commnt No 04/07/21 08:47 PT 46.0 Sec. (12.2-14.9) H 04/08/21 06:47 INR 4.51 (0.87-1.13) H 04/08/21 06:47 APTT 38.0 Sec. (24.2-36.6) H 04/06/21 23:28 Heparin Anti-Xa Level > 2.00 U.I./ml (0.3-0.7) H 04/07/21 08:47 Sodium 133 mmol/L (137-145) L 04/08/21 06:47 Potassium 4.3 mmol/L (3.6-5.0) 04/08/21 06:47 Chloride 103.8 mmol/L (98-107) 04/08/21 06:47 Carbon Dioxide 21 mmol/L (22-30) L 04/08/21 06:47 Anion Gap 13 mmol/L 04/08/21 06:47 BUN 7 mg/dL (7-17) 04/08/21 06:47 Creatinine 0.4 mg/dL (0.6-1.2) L 04/09/21 07:02 Estimated GFR > 60 ml/min 04/09/21 07:02 BUN/Creatinine Ratio 18 % 04/08/21 06:47 Glucose 85 mg/dL (65-100) 04/08/21 06:47 Lactic Acid 3.50 mmol/L (0.7-2.0) H* 04/04/21 20:54 Calcium 7.1 mg/dL (8.4-10.2) L 04/08/21 06:47 Magnesium 2.00 mg/dL (1.7-2.3) 04/07/21 08:47 Total Bilirubin 0.20 mg/dL (0.1-1.2) 04/07/21 08:47 AST 7 units/L (5-40) 04/07/21 08:47 ALT 6 units/L (7-56) L 04/07/21 08:47 Alkaline Phosphatase 134 units/L (35-129) H 04/07/21 08:47 Total Protein 3.5 g/dL (6.3-8.2) L 04/07/21 08:47 Albumin 1.7 g/dL (3.9-5) L 04/07/21 08:47 Albumin/Globulin Ratio 0.9 % 04/07/21 08:47 Procalcitonin 0.12 ng/mL (<0.15) 04/04/21 20:54 Urine Color Red (Yellow) 04/05/21 00:50 Urine Turbidity Cloudy (Clear) 04/05/21 00:50 Urine pH 6.0 (5.0-7.0) 04/05/21 00:50 Ur Specific [place] 1.035 (1.003-1.030) H 04/05/21 00:50 Urine Protein >500 mg/dL (Negative) 04/05/21 00:50 Urine Glucose (UA) Neg mg/dL (Negative) 04/05/21 00:50 Urine Ketones Neg mg/dL (Negative) 04/05/21 00:50 Urine Blood Lg (Negative) 04/05/21 00:50 Urine Nitrite Pos (Negative) 04/05/21 00:50 Urine Bilirubin Neg (Negative) 04/05/21 00:50 Urine Urobilinogen < 2.0 mg/dL (<2.0) 04/05/21 00:50 Ur Leukocyte Esterase Lg (Negative) 04/05/21 00:50 Urine WBC (Auto) 152.0 /HPF (0.0-6.0) H 04/05/21 00:50 Urine RBC (Auto) > 182.0 /HPF (0.0-6.0) 04/05/21 00:50 U Epithel Cells (Auto) 1.0 /HPF (0-13.0) 04/05/21 00:50 Urine Bacteria (Auto) 1+ /HPF (Negative) 04/05/21 00:50 Urine Mucus 3+ /HPF 04/05/21 00:50 Blood Type O POSITIVE 04/09/21 10:46 Antibody Screen Negative 04/09/21 10:46 Crossmatch See Detail 04/09/21 10:46 Microbiology: Microbiology 04/04/21 20:54 Peripheral/Venous Blood Culture - Final NO GROWTH AFTER 5 DAYS 04/04/21 21:09 Peripheral/Venous Blood Culture - Final NO GROWTH AFTER 5 DAYS Monk/IV: Voiding Method Incontinent Active Medications - Current Medications Current Medications: Generic Name Dose Route Start Last Admin Trade Name Freq PRN Reason Stop Dose Admin Acetaminophen 650 mg 04/04/21 00:21 04/08/21 22:25 Acetaminophen 325 Mg Tab PO 650 mg Q4H PRN Administration Pain MILD(1-3)/Fever >100.5/SALAZAR Hydrocodone Bitart/Acetaminophen 1 each 04/06/21 14:42 04/07/21 04:40 Hydrocodone/Acetaminophen 5-325 Mg Tab PO 1 each Q4H PRN Administration Pain, Moderate (4-6) Albuterol 2.5 mg 04/04/21 02:00 Albuterol 2.5 Mg/3 Ml Nebu IH Q3HRT PRN Shortness Of Breath Atorvastatin Calcium 40 mg 04/04/21 22:00 04/09/21 21:45 Atorvastatin 40 Mg Tab PO 40 mg QHS GIA Administration Cholestyramine Resin 4 gm 04/05/21 12:00 04/09/21 21:45 Cholestyramine (With Sugar) 4 Gm Packet PO 4 gm BID GIA Administration Sodium Chloride 500 mls @ 0 mls/hr 04/07/21 11:09 04/07/21 16:48 Nacl 0.9% 500 Ml IV 500 mls/hr ONCE GIA Administration As Directed Meclizine HCl 25 mg 04/04/21 01:00 Meclizine 25 Mg Tab PO Q8H PRN Vertigo Ondansetron HCl 4 mg 04/04/21 01:00 Ondansetron 4 Mg/2 Ml Inj IV Q8H PRN Nausea And Vomiting Pantoprazole Sodium 20 mg 04/06/21 15:00 04/09/21 09:01 Pantoprazole 20 Mg Tab PO 20 mg QDAC GIA Administration Rivaroxaban 15 mg 04/06/21 13:58 04/09/21 17:38 Rivaroxaban 15 Mg Tab PO 04/26/21 17:01 15 mg BIDDIAB GIA Administration Protocol Rivaroxaban 20 mg 04/27/21 08:00 Rivaroxaban 20 Mg Tab PO QPMDIAB GIA Protocol Sodium Chloride 10 ml 04/04/21 10:00 04/09/21 21:50 Sodium Chloride 0.9% 10 Ml Flush Syringe IV 10 ml BID GIA Administration Sodium Chloride 10 ml 04/04/21 01:00 Sodium Chloride 0.9% 10 Ml Flush Syringe IV PRN PRN LINE FLUSH
[2021-04-10] MEDS: RIVAROXABAN 15 MG TAB PO SCH ×2 (13:47→22:51)
[2021-04-10] MEDS: PANTOPRAZOLE 20 MG TAB PO SCH (13:47)
[2021-04-10] MEDS: CHOLESTYRAMINE (WITH SUGAR) 4 GM PACKET PO SCH ×2 (18:52→22:57)
--- NOTE | 2021-04-11 10:22 | Progress Note ---
Assessment and Plan Assessment and plan: 66-year-old female present with a chief complaint bilateral DVTs.Patient then had COVID, and her SOB worsened. [facility] with oxygen dependence and PE. Ultimately underwent PE thrombectomy and SOB improved. Then patient was discharged, had no anticoagulation for 1 week, then started on warfarin and levels not being checked for 3 weeks. Patient complained of severe lower extremity swelling. RLE DVT study performed at bedside demonstrating CFV thrombus. Patient was sent to ER for severe swelling with DVT (DVT not previously present). Initially INR was 14.5 . Case discussed with vascular surgeon, Dr. Mittal who recommended to give vitamin K 10 mg IM x1 dose and serial PT/INR. He recommends starting heparin infusion once INR drops to 2.0 and will need a thrombectomy. Dr. Mittal reviewed ultrasound which demonstrating right common femoral vein thrombus and left superficial femoral vein thrombus (clearly listed on drivers license examiner report and images, unclear why not listed on report). (1) Iliac, common femoral and the superficial femoral venous thrombosis With significant bilateral lower extremities Current Visit: Yes Status: Acute Plan to address problem: Supratherapeutic INR reversed with vitamin K and heparin infusion initiated. Dr Mittal consulted. Patient underwent extensive venous thrombectomy and angioplasty on Tuesday, 04/06. Has sinus tachycardia with BP, postprocedure afebrile. Compression stockings applied postprocedure. (2) chronic anemia Current Visit: Yes Status: Acute Plan to address problem: Could be related to large clot burden. Will monitor and transfuse as needed. No evidence of bruising or abnormal bleeding with a supratherapeutic INR. (3) chronic diarrhea Current Visit: Yes Status: Acute Plan to address problem: Patient reports chronic diarrhea since several months which initially started with some hematochezia according to patient. Recently frequent as she is unable to keep up getting in time to the bathroom. Her mobility is also significantly impaired due to severe low bilateral lower extremity edema from DVT. Patient did not get any GI work-up for this. Consulted GI and started on the Questran powder. Currently no abdominal pains or nausea. Tolerating diet. (4) Supratherapeutic INR Current Visit: Yes Status: Acute Plan to address problem: Warfarin discontinued. Patient was given vitamin K 10 mg Im x1 dose. Transition to heparin drip when the INR less than 2. Dr. Mittal, vascular surgeon consulted and is evaluating/following. Eventually, patient will be discharged home on Xarelto, as per Dr Mittal (5) recent pulmonary embolism Current Visit: Yes Status: Acute Plan to address problem: Patient has history of pulmonary embolism. Status post thrombectomy. Patient presented with supratherapeutic INR. Patient is given vitamin K 10 mg Im x1 dose. transitioned to heparin drip when the INR less than 2. Currently patient is on room air. Will be discharged on Xarelto. (6) leukocytosis, UTI UA consistent with UTI. Will start Rocephin and monitor. Blood cultures negative to date. DVT prophylaxis Current Visit: No Status: Acute Plan to address problem: On heparin infusion. Pepcid 20 mg p.o. twice daily for GI prophylaxis. Patient is a full code 04/07/2021. Patient underwent successful bilateral DVT and IVC thrombectomy and angioplasty yesterday. Keep SCD applied to prevent recurrent DVT and keep flow in leg veins. Keep ANGIE hose on. Transitioned from heparin to Xarelto. Patient with a hemoglobin of 6.8. We will type and cross and transfuse 2 units. Follow-up INR. INR yesterday still supratherapeutic at 2.39 04/08/2021. Continue Xarelto. With regards to the loose stools, GI recommends continuing Questran twice daily. Continue diet as tolerated. Await for placement for rehab. Await physical therapy evaluation for recommendations. Case management reports that patient will need to be transferred to in [facility] per insurance company. 04/09/2021. Await physical therapy evaluation with regards to discharge and possible rehab placement. Follow-up H&H after PRBCs. Continue Questran for loose stools 04/10/2021. Patient awaiting for SNF placement. 04/11/2021. Patient still complaining of loose stools. Continue Questran. We will add Imodium to the regimen. Continue anticoagulation with Xarelto per vascular surgery recommendations. Patient completed antibiotics of Rocephin for UTI. Await SNF placement. History Interval history: No new issues overnight. Hospitalist Physical - Constitutional Vitals: Temp Pulse Resp BP Pulse Ox 98.4 F 111 H 18 103/58 95 04/11/21 08:20 04/11/21 08:20 04/11/21 08:20 04/11/21 08:20 04/11/21 08:20 General appearance: Present: no acute distress - EENT Eyes: Present: PERRL, EOM intact ENT: hearing intact, clear oral mucosa, dentition normal - Neck Neck: Present: supple, normal ROM - Respiratory Respiratory effort: normal Respiratory: bilateral: CTA - Cardiovascular Rhythm: regular Heart Sounds: Present: S1 & S2. Absent: gallop, rub - Extremities Extremities: no ischemia, No edema, Full ROM - Abdominal General gastrointestinal: soft, non-tender, non-distended, normal bowel sounds - Integumentary Integumentary: Present: clear, warm, dry - Neurologic Neurologic: CNII-XII intact, moves all extremities Results - Labs CBC & Chem 7: 04/11/21 07:56 04/09/21 07:02 Labs: Laboratory Last Values WBC 6.7 K/mm3 (4.5-11.0) 04/10/21 04:12 RBC 3.21 M/mm3 (3.65-5.03) L 04/10/21 04:12 Hgb 9.1 gm/dl (10.1-14.3) L 04/10/21 04:12 Hct 28.3 % (30.3-42.9) L 04/10/21 04:12 MCV 88 fl (79-97) 04/10/21 04:12 MCH 28 pg (28-32) 04/10/21 04:12 MCHC 32 % (30-34) 04/10/21 04:12 RDW 18.2 % (13.2-15.2) H 04/10/21 04:12 Plt Count 506 K/mm3 (140-440) H 04/11/21 07:56 Lymph % (Auto) 16.4 % (13.4-35.0) 04/08/21 06:47 [place] % (Auto) 5.0 % (0.0-7.3) 04/08/21 06:47 Eos % (Auto) 1.4 % (0.0-4.3) 04/08/21 06:47 Baso % (Auto) 0.5 % (0.0-1.8) 04/08/21 06:47 Lymph # (Auto) 1.6 K/mm3 (1.2-5.4) 04/08/21 06:47 [place] # (Auto) 0.5 K/mm3 (0.0-0.8) 04/08/21 06:47 Eos # (Auto) 0.1 K/mm3 (0.0-0.4) 04/08/21 06:47 Baso # (Auto) 0.0 K/mm3 (0.0-0.1) 04/08/21 06:47 Add Manual Diff Complete 04/07/21 08:47 Total Counted 100 04/07/21 08:47 Seg Neutrophils % 76.7 % (40.0-70.0) H 04/08/21 06:47 Seg Neuts % (Manual) 80.0 % (40.0-70.0) H 04/07/21 08:47 Band Neutrophils % 1.0 % 04/07/21 08:47 Lymphocytes % (Manual) 13.0 % (13.4-35.0) L 04/07/21 08:47 Reactive Lymphs % (Man) 0 % 04/07/21 08:47 Monocytes % (Manual) 4.0 % (0.0-7.3) 04/07/21 08:47 Eosinophils % (Manual) 0 % (0.0-4.3) 04/07/21 08:47 Basophils % (Manual) 0 % (0.0-1.8) 04/07/21 08:47 Metamyelocytes % 2.0 % 04/07/21 08:47 Myelocytes % 0 % 04/07/21 08:47 Promyelocytes % 0 % 04/07/21 08:47 Blast Cells % 0 % 04/07/21 08:47 Nucleated RBC % Not Reportable 04/07/21 08:47 Seg Neutrophils # 7.3 K/mm3 (1.8-7.7) 04/08/21 06:47 Seg Neutrophils # Man 13.8 K/mm3 (1.8-7.7) H 04/07/21 08:47 Band Neutrophils # 0.2 K/mm3 04/07/21 08:47 Lymphocytes # (Manual) 2.2 K/mm3 (1.2-5.4) 04/07/21 08:47 Abs React Lymphs (Man) 0.0 K/mm3 04/07/21 08:47 Monocytes # (Manual) 0.7 K/mm3 (0.0-0.8) 04/07/21 08:47 Eosinophils # (Manual) 0.0 K/mm3 (0.0-0.4) 04/07/21 08:47 Basophils # (Manual) 0.0 K/mm3 (0.0-0.1) 04/07/21 08:47 Metamyelocytes # 0.3 K/mm3 04/07/21 08:47 Myelocytes # 0.0 K/mm3 04/07/21 08:47 Promyelocytes # 0.0 K/mm3 04/07/21 08:47 Blast Cells # 0.0 K/mm3 04/07/21 08:47 WBC Morphology Not Reportable 04/07/21 08:47 Hypersegmented Neuts Not Reportable 04/07/21 08:47 Hyposegmented Neuts Not Reportable 04/07/21 08:47 Hypogranular Neuts Not Reportable 04/07/21 08:47 Smudge Cells Not Reportable 04/07/21 08:47 Toxic Granulation Not Reportable 04/07/21 08:47 Toxic Vacuolation Not Reportable 04/07/21 08:47 Dohle Bodies Not Reportable 04/07/21 08:47 Pelger-Huet Anomaly Not Reportable 04/07/21 08:47 Lisandro Rods Not Reportable 04/07/21 08:47 Platelet Estimate Consistent w auto 04/07/21 08:47 Clumped Platelets Not Reportable 04/07/21 08:47 Plt Clumps, EDTA Not Reportable 04/07/21 08:47 Large Platelets Not Reportable 04/07/21 08:47 Giant Platelets Not Reportable 04/07/21 08:47 Platelet Satelliting Not Reportable 04/07/21 08:47 Plt Morphology Comment Not Reportable 04/07/21 08:47 RBC Morphology Not Reportable 04/07/21 08:47 Dimorphic RBCs Not Reportable 04/07/21 08:47 Polychromasia Few 04/07/21 08:47 Hypochromasia 1+ 04/07/21 08:47 Poikilocytosis Not Reportable 04/07/21 08:47 Anisocytosis 1+ 04/07/21 08:47 Microcytosis Not Reportable 04/07/21 08:47 Macrocytosis Not Reportable 04/07/21 08:47 Spherocytes Not Reportable 04/07/21 08:47 Pappenheimer Bodies Not Reportable 04/07/21 08:47 Sickle Cells Not Reportable 04/07/21 08:47 Target Cells Not Reportable 04/07/21 08:47 Tear Drop Cells Not Reportable 04/07/21 08:47 Ovalocytes Not Reportable 04/07/21 08:47 Helmet Cells Not Reportable 04/07/21 08:47 [place] Bodies Not Reportable 04/07/21 08:47 [place] Rings Not Reportable 04/07/21 08:47 [place] Cells Not Reportable 04/07/21 08:47 Bite Cells Not Reportable 04/07/21 08:47 Crenated Cell Not Reportable 04/07/21 08:47 Elliptocytes Not Reportable 04/07/21 08:47 Acanthocytes (Spur) Not Reportable 04/07/21 08:47 Rouleaux Not Reportable 04/07/21 08:47 Hemoglobin C Crystals Not Reportable 04/07/21 08:47 Schistocytes Not Reportable 04/07/21 08:47 Malaria parasites Not Reportable 04/07/21 08:47 [place] Bodies Not Reportable 04/07/21 08:47 Hem Pathologist Commnt No 04/07/21 08:47 PT 46.0 Sec. (12.2-14.9) H 04/08/21 06:47 INR 4.51 (0.87-1.13) H 04/08/21 06:47 APTT 38.0 Sec. (24.2-36.6) H 04/06/21 23:28 Heparin Anti-Xa Level > 2.00 U.I./ml (0.3-0.7) H 04/07/21 08:47 Sodium 133 mmol/L (137-145) L 04/08/21 06:47 Potassium 4.3 mmol/L (3.6-5.0) 04/08/21 06:47 Chloride 103.8 mmol/L (98-107) 04/08/21 06:47 Carbon Dioxide 21 mmol/L (22-30) L 04/08/21 06:47 Anion Gap 13 mmol/L 04/08/21 06:47 BUN 7 mg/dL (7-17) 04/08/21 06:47 Creatinine 0.4 mg/dL (0.6-1.2) L 04/09/21 07:02 Estimated GFR > 60 ml/min 04/09/21 07:02 BUN/Creatinine Ratio 18 % 04/08/21 06:47 Glucose 85 mg/dL (65-100) 04/08/21 06:47 Lactic Acid 3.50 mmol/L (0.7-2.0) H* 04/04/21 20:54 Calcium 7.1 mg/dL (8.4-10.2) L 04/08/21 06:47 Magnesium 2.00 mg/dL (1.7-2.3) 04/07/21 08:47 Total Bilirubin 0.20 mg/dL (0.1-1.2) 04/07/21 08:47 AST 7 units/L (5-40) 04/07/21 08:47 ALT 6 units/L (7-56) L 04/07/21 08:47 Alkaline Phosphatase 134 units/L (35-129) H 04/07/21 08:47 Total Protein 3.5 g/dL (6.3-8.2) L 04/07/21 08:47 Albumin 1.7 g/dL (3.9-5) L 04/07/21 08:47 Albumin/Globulin Ratio 0.9 % 04/07/21 08:47 Procalcitonin 0.12 ng/mL (<0.15) 04/04/21 20:54 Urine Color Red (Yellow) 04/05/21 00:50 Urine Turbidity Cloudy (Clear) 04/05/21 00:50 Urine pH 6.0 (5.0-7.0) 04/05/21 00:50 Ur Specific [place] 1.035 (1.003-1.030) H 04/05/21 00:50 Urine Protein >500 mg/dL (Negative) 04/05/21 00:50 Urine Glucose (UA) Neg mg/dL (Negative) 04/05/21 00:50 Urine Ketones Neg mg/dL (Negative) 04/05/21 00:50 Urine Blood Lg (Negative) 04/05/21 00:50 Urine Nitrite Pos (Negative) 04/05/21 00:50 Urine Bilirubin Neg (Negative) 04/05/21 00:50 Urine Urobilinogen < 2.0 mg/dL (<2.0) 04/05/21 00:50 Ur Leukocyte Esterase Lg (Negative) 04/05/21 00:50 Urine WBC (Auto) 152.0 /HPF (0.0-6.0) H 04/05/21 00:50 Urine RBC (Auto) > 182.0 /HPF (0.0-6.0) 04/05/21 00:50 U Epithel Cells (Auto) 1.0 /HPF (0-13.0) 04/05/21 00:50 Urine Bacteria (Auto) 1+ /HPF (Negative) 04/05/21 00:50 Urine Mucus 3+ /HPF 04/05/21 00:50 Blood Type O POSITIVE 04/09/21 10:46 Antibody Screen Negative 04/09/21 10:46 Crossmatch See Detail 04/09/21 10:46 Monk/IV: Voiding Method Incontinent Active Medications - Current Medications Current Medications: Generic Name Dose Route Start Last Admin Trade Name Freq PRN Reason Stop Dose Admin Acetaminophen 650 mg 04/04/21 00:21 04/08/21 22:25 Acetaminophen 325 Mg Tab PO 650 mg Q4H PRN Administration Pain MILD(1-3)/Fever >100.5/SALAZAR Hydrocodone Bitart/Acetaminophen 1 each 04/06/21 14:42 04/07/21 04:40 Hydrocodone/Acetaminophen 5-325 Mg Tab PO 1 each Q4H PRN Administration Pain, Moderate (4-6) Albuterol 2.5 mg 04/04/21 02:00 Albuterol 2.5 Mg/3 Ml Nebu IH Q3HRT PRN Shortness Of Breath Atorvastatin Calcium 40 mg 04/04/21 22:00 04/10/21 21:54 Atorvastatin 40 Mg Tab PO Not Given QHS GIA Cholestyramine Resin 4 gm 04/05/21 12:00 04/10/21 22:57 Cholestyramine (With Sugar) 4 Gm Packet PO 4 gm BID GIA Administration Sodium Chloride 500 mls @ 0 mls/hr 04/07/21 11:09 04/07/21 16:48 Nacl 0.9% 500 Ml IV 500 mls/hr ONCE GIA Administration As Directed Meclizine HCl 25 mg 04/04/21 01:00 Meclizine 25 Mg Tab PO Q8H PRN Vertigo Ondansetron HCl 4 mg 04/04/21 01:00 Ondansetron 4 Mg/2 Ml Inj IV Q8H PRN Nausea And Vomiting Pantoprazole Sodium 20 mg 04/06/21 15:00 04/10/21 13:47 Pantoprazole 20 Mg Tab PO 20 mg QDAC GIA Administration Rivaroxaban 15 mg 04/06/21 13:58 04/10/21 22:51 Rivaroxaban 15 Mg Tab PO 04/26/21 17:01 15 mg BIDDIAB GIA Administration Protocol Rivaroxaban 20 mg 04/27/21 08:00 Rivaroxaban 20 Mg Tab PO QPMDIAB GIA Protocol Sodium Chloride 10 ml 04/04/21 10:00 04/11/21 08:11 Sodium Chloride 0.9% 10 Ml Flush Syringe IV Not Given BID GIA Sodium Chloride 10 ml 04/04/21 01:00 Sodium Chloride 0.9% 10 Ml Flush Syringe IV PRN PRN LINE FLUSH Nutrition/Malnutrition Assess - Dietary Evaluation Nutrition/Malnutrition Findings: Nutrition Notes Start: 04/10/21 14:50 Freq: Status: Active Protocol: Document 04/10/21 14:51 ROSALIA (Rec: 04/10/21 14:52 [facility] [id number]) Nutrition Notes Need for Assessment generated from: LOS Initial or Follow up Brief Note Current Diet Regular Weight Status Obese Subjective/Other Information Pt screened for LOS. Spoke with pt via phone (14:50). She reports good PO intake of meals and verbalizes a few food preferences. Burn Absent Trauma Absent Minimum of two criteria No Nutrition Intervention Revisit per MD consult or patient Sign Off request:
[2021-04-11] MEDS: PANTOPRAZOLE 20 MG TAB PO SCH (11:12)
[2021-04-11] MEDS: RIVAROXABAN 15 MG TAB PO SCH ×2 (11:12→16:59)
[2021-04-11] MEDS: CHOLESTYRAMINE (WITH SUGAR) 4 GM PACKET PO SCH ×2 (11:12→21:47)
[2021-04-11] MEDS: LOPERAMIDE 2 MG CAP PO PRN ×3 (11:16→19:38)
[2021-04-12 07:43] LABS: Mean Corpuscular HGB Conc 32 % (30-34); Mean Corpuscular Volume 89 fl (79-97); Platelet Count 461 K/mm3 (140-440); Red Blood Count 3.15 M/mm3 (3.65-5.03); Red Cell Distribution Width 18.7 % (13.2-15.2)
--- NOTE | 2021-04-12 08:34 | Progress Note ---
Assessment and Plan Assessment and plan: 66-year-old female present with a chief complaint bilateral DVTs.Patient then had COVID, and her SOB worsened. Patient admitted to [facility] with SOB with oxygen dependence and PE. Ultimately underwent PE thrombectomy and SOB improved. Then patient was discharged, had no anticoagulation for 1 week, then started on warfarin and levels not being checked for 3 weeks. Patient complained of severe lower extremity swelling. RLE DVT study performed at bedside demonstrating CFV thrombus. Patient was sent to ER for severe swelling with DVT (DVT not previously present). Initially INR was 14.5 . Case discussed with vascular surgeon, Dr. Mittal who recommended to give vitamin K 10 mg IM x1 dose and serial PT/INR. He recommends starting heparin infusion once INR drops to 2.0 and will need a thrombectomy. Dr. Mittal reviewed ultrasound which demonstrating right common femoral vein thrombus and left superficial femoral vein thrombus (clearly listed on senior application security consultant report and images, unclear why not listed on report). (1) Iliac, common femoral and the superficial femoral venous thrombosis With significant bilateral lower extremities Current Visit: Yes Status: Acute Plan to address problem: Supratherapeutic INR reversed with vitamin K and heparin infusion initiated. Dr Mittal consulted. Patient underwent extensive venous thrombectomy and angioplasty on Tuesday, 04/06. Has sinus tachycardia with BP, postprocedure afebrile. Compression stockings applied postprocedure. (2) chronic anemia Current Visit: Yes Status: Acute Plan to address problem: Could be related to large clot burden. Will monitor and transfuse as needed. No evidence of bruising or abnormal bleeding with a supratherapeutic INR. (3) chronic diarrhea Current Visit: Yes Status: Acute Plan to address problem: Patient reports chronic diarrhea since several months which initially started with some hematochezia according to patient. Recently frequent as she is unable to keep up getting in time to the bathroom. Her mobility is also significantly impaired due to severe low bilateral lower extremity edema from DVT. Patient did not get any GI work-up for this. Consulted GI and started on the Questran powder. Currently no abdominal pains or nausea. Tolerating diet. (4) Supratherapeutic INR Current Visit: Yes Status: Acute Plan to address problem: Warfarin discontinued. Patient was given vitamin K 10 mg Im x1 dose. Transition to heparin drip when the INR less than 2. Dr. Mittal, vascular surgeon consulted and is evaluating/following. Eventually, patient will be discharged home on Xarelto, as per Dr Mittal (5) recent pulmonary embolism Current Visit: Yes Status: Acute Plan to address problem: Patient has history of pulmonary embolism. Status post thrombectomy. Patient presented with supratherapeutic INR. Patient is given vitamin K 10 mg Im x1 dose. transitioned to heparin drip when the INR less than 2. Currently patient is on room air. Will be discharged on Xarelto. (6) leukocytosis, UTI UA consistent with UTI. Will start Rocephin and monitor. Blood cultures negative to date. DVT prophylaxis Current Visit: No Status: Acute Plan to address problem: On heparin infusion. Pepcid 20 mg p.o. twice daily for GI prophylaxis. Patient is a full code 04/07/2021. Patient underwent successful bilateral DVT and IVC thrombectomy and angioplasty yesterday. Keep SCD applied to prevent recurrent DVT and keep flow in leg veins. Keep ANGIE hose on. Transitioned from heparin to Xarelto. Patient with a hemoglobin of 6.8. We will type and cross and transfuse 2 units. Follow-up INR. INR yesterday still supratherapeutic at 2.39 04/08/2021. Continue Xarelto. With regards to the loose stools, GI recommends continuing Questran twice daily. Continue diet as tolerated. Await for placement for rehab. Await physical therapy evaluation for recommendations. Case management reports that patient will need to be transferred to in [facility] per insurance company. 04/09/2021. Await physical therapy evaluation with regards to discharge and possible rehab placement. Follow-up H&H after PRBCs. Continue Questran for loose stools 04/10/2021. Patient awaiting for SNF placement. 04/11/2021. Patient still complaining of loose stools. Continue Questran. We will add Imodium to the regimen. Continue anticoagulation with Xarelto per vascular surgery recommendations. Patient completed antibiotics of Rocephin for UTI. Await SNF placement. 04/12/2021. Continue anticoagulation with Xarelto per vascular surgery recommendations. Patient completed antibiotics of Rocephin for UTI. Await SNF placement. History Interval history: No new issues overnight. Hospitalist Physical - Constitutional Vitals: Temp Pulse Resp BP Pulse Ox 98.4 F 104 H 16 109/66 95 04/12/21 07:52 04/12/21 07:52 04/12/21 07:52 04/12/21 07:52 04/12/21 07:52 General appearance: Present: no acute distress - EENT Eyes: Present: PERRL, EOM intact ENT: hearing intact, clear oral mucosa, dentition normal - Neck Neck: Present: supple, normal ROM - Respiratory Respiratory effort: normal Respiratory: bilateral: CTA - Cardiovascular Rhythm: regular Heart Sounds: Present: S1 & S2. Absent: gallop, rub - Extremities Extremities: no ischemia, No edema, Full ROM - Abdominal General gastrointestinal: soft, non-tender, non-distended, normal bowel sounds - Integumentary Integumentary: Present: clear, warm, dry - Neurologic Neurologic: CNII-XII intact, moves all extremities Results - Labs CBC & Chem 7: 04/12/21 07:08 04/12/21 07:08 Labs: Laboratory Last Values WBC 10.2 K/mm3 (4.5-11.0) 04/12/21 07:08 RBC 3.15 M/mm3 (3.65-5.03) L 04/12/21 07:08 Hgb 9.0 gm/dl (10.1-14.3) L 04/12/21 07:08 Hct 28.0 % (30.3-42.9) L 04/12/21 07:08 MCV 89 fl (79-97) 04/12/21 07:08 MCH 29 pg (28-32) 04/12/21 07:08 MCHC 32 % (30-34) 04/12/21 07:08 RDW 18.7 % (13.2-15.2) H 04/12/21 07:08 Plt Count 461 K/mm3 (140-440) H 04/12/21 07:08 Lymph % (Auto) 16.4 % (13.4-35.0) 04/08/21 06:47 [place] % (Auto) 5.0 % (0.0-7.3) 04/08/21 06:47 Eos % (Auto) 1.4 % (0.0-4.3) 04/08/21 06:47 Baso % (Auto) 0.5 % (0.0-1.8) 04/08/21 06:47 Lymph # (Auto) 1.6 K/mm3 (1.2-5.4) 04/08/21 06:47 [place] # (Auto) 0.5 K/mm3 (0.0-0.8) 04/08/21 06:47 Eos # (Auto) 0.1 K/mm3 (0.0-0.4) 04/08/21 06:47 Baso # (Auto) 0.0 K/mm3 (0.0-0.1) 04/08/21 06:47 Add Manual Diff Complete 04/07/21 08:47 Total Counted 100 04/07/21 08:47 Seg Neutrophils % 76.7 % (40.0-70.0) H 04/08/21 06:47 Seg Neuts % (Manual) 80.0 % (40.0-70.0) H 04/07/21 08:47 Band Neutrophils % 1.0 % 04/07/21 08:47 Lymphocytes % (Manual) 13.0 % (13.4-35.0) L 04/07/21 08:47 Reactive Lymphs % (Man) 0 % 04/07/21 08:47 Monocytes % (Manual) 4.0 % (0.0-7.3) 04/07/21 08:47 Eosinophils % (Manual) 0 % (0.0-4.3) 04/07/21 08:47 Basophils % (Manual) 0 % (0.0-1.8) 04/07/21 08:47 Metamyelocytes % 2.0 % 04/07/21 08:47 Myelocytes % 0 % 04/07/21 08:47 Promyelocytes % 0 % 04/07/21 08:47 Blast Cells % 0 % 04/07/21 08:47 Nucleated RBC % Not Reportable 04/07/21 08:47 Seg Neutrophils # 7.3 K/mm3 (1.8-7.7) 04/08/21 06:47 Seg Neutrophils # Man 13.8 K/mm3 (1.8-7.7) H 04/07/21 08:47 Band Neutrophils # 0.2 K/mm3 04/07/21 08:47 Lymphocytes # (Manual) 2.2 K/mm3 (1.2-5.4) 04/07/21 08:47 Abs React Lymphs (Man) 0.0 K/mm3 04/07/21 08:47 Monocytes # (Manual) 0.7 K/mm3 (0.0-0.8) 04/07/21 08:47 Eosinophils # (Manual) 0.0 K/mm3 (0.0-0.4) 04/07/21 08:47 Basophils # (Manual) 0.0 K/mm3 (0.0-0.1) 04/07/21 08:47 Metamyelocytes # 0.3 K/mm3 04/07/21 08:47 Myelocytes # 0.0 K/mm3 04/07/21 08:47 Promyelocytes # 0.0 K/mm3 04/07/21 08:47 Blast Cells # 0.0 K/mm3 04/07/21 08:47 WBC Morphology Not Reportable 04/07/21 08:47 Hypersegmented Neuts Not Reportable 04/07/21 08:47 Hyposegmented Neuts Not Reportable 04/07/21 08:47 Hypogranular Neuts Not Reportable 04/07/21 08:47 Smudge Cells Not Reportable 04/07/21 08:47 Toxic Granulation Not Reportable 04/07/21 08:47 Toxic Vacuolation Not Reportable 04/07/21 08:47 Dohle Bodies Not Reportable 04/07/21 08:47 Pelger-Huet Anomaly Not Reportable 04/07/21 08:47 Lisandro Rods Not Reportable 04/07/21 08:47 Platelet Estimate Consistent w auto 04/07/21 08:47 Clumped Platelets Not Reportable 04/07/21 08:47 Plt Clumps, EDTA Not Reportable 04/07/21 08:47 Large Platelets Not Reportable 04/07/21 08:47 Giant Platelets Not Reportable 04/07/21 08:47 Platelet Satelliting Not Reportable 04/07/21 08:47 Plt Morphology Comment Not Reportable 04/07/21 08:47 RBC Morphology Not Reportable 04/07/21 08:47 Dimorphic RBCs Not Reportable 04/07/21 08:47 Polychromasia Few 04/07/21 08:47 Hypochromasia 1+ 04/07/21 08:47 Poikilocytosis Not Reportable 04/07/21 08:47 Anisocytosis 1+ 04/07/21 08:47 Microcytosis Not Reportable 04/07/21 08:47 Macrocytosis Not Reportable 04/07/21 08:47 Spherocytes Not Reportable 04/07/21 08:47 Pappenheimer Bodies Not Reportable 04/07/21 08:47 Sickle Cells Not Reportable 04/07/21 08:47 Target Cells Not Reportable 04/07/21 08:47 Tear Drop Cells Not Reportable 04/07/21 08:47 Ovalocytes Not Reportable 04/07/21 08:47 Helmet Cells Not Reportable 04/07/21 08:47 [place] Bodies Not Reportable 04/07/21 08:47 [place] Rings Not Reportable 04/07/21 08:47 [place] Cells Not Reportable 04/07/21 08:47 Bite Cells Not Reportable 04/07/21 08:47 Crenated Cell Not Reportable 04/07/21 08:47 Elliptocytes Not Reportable 04/07/21 08:47 Acanthocytes (Spur) Not Reportable 04/07/21 08:47 Rouleaux Not Reportable 04/07/21 08:47 Hemoglobin C Crystals Not Reportable 04/07/21 08:47 Schistocytes Not Reportable 04/07/21 08:47 Malaria parasites Not Reportable 04/07/21 08:47 [place] Bodies Not Reportable 04/07/21 08:47 Hem Pathologist Commnt No 04/07/21 08:47 PT 46.0 Sec. (12.2-14.9) H 04/08/21 06:47 INR 4.51 (0.87-1.13) H 04/08/21 06:47 APTT 38.0 Sec. (24.2-36.6) H 04/06/21 23:28 Heparin Anti-Xa Level > 2.00 U.I./ml (0.3-0.7) H 04/07/21 08:47 Sodium 133 mmol/L (137-145) L 04/08/21 06:47 Potassium 4.3 mmol/L (3.6-5.0) 04/08/21 06:47 Chloride 103.8 mmol/L (98-107) 04/08/21 06:47 Carbon Dioxide 21 mmol/L (22-30) L 04/08/21 06:47 Anion Gap 13 mmol/L 04/08/21 06:47 BUN 7 mg/dL (7-17) 04/08/21 06:47 Creatinine 0.4 mg/dL (0.6-1.2) L 04/12/21 07:08 Estimated GFR > 60 ml/min 04/12/21 07:08 BUN/Creatinine Ratio 18 % 04/08/21 06:47 Glucose 85 mg/dL (65-100) 04/08/21 06:47 Lactic Acid 3.50 mmol/L (0.7-2.0) H* 04/04/21 20:54 Calcium 7.1 mg/dL (8.4-10.2) L 04/08/21 06:47 Magnesium 2.00 mg/dL (1.7-2.3) 04/07/21 08:47 Total Bilirubin 0.20 mg/dL (0.1-1.2) 04/07/21 08:47 AST 7 units/L (5-40) 04/07/21 08:47 ALT 6 units/L (7-56) L 04/07/21 08:47 Alkaline Phosphatase 134 units/L (35-129) H 04/07/21 08:47 Total Protein 3.5 g/dL (6.3-8.2) L 04/07/21 08:47 Albumin 1.7 g/dL (3.9-5) L 04/07/21 08:47 Albumin/Globulin Ratio 0.9 % 04/07/21 08:47 Procalcitonin 0.12 ng/mL (<0.15) 04/04/21 20:54 Urine Color Red (Yellow) 04/05/21 00:50 Urine Turbidity Cloudy (Clear) 04/05/21 00:50 Urine pH 6.0 (5.0-7.0) 04/05/21 00:50 Ur Specific [place] 1.035 (1.003-1.030) H 04/05/21 00:50 Urine Protein >500 mg/dL (Negative) 04/05/21 00:50 Urine Glucose (UA) Neg mg/dL (Negative) 04/05/21 00:50 Urine Ketones Neg mg/dL (Negative) 04/05/21 00:50 Urine Blood Lg (Negative) 04/05/21 00:50 Urine Nitrite Pos (Negative) 04/05/21 00:50 Urine Bilirubin Neg (Negative) 04/05/21 00:50 Urine Urobilinogen < 2.0 mg/dL (<2.0) 04/05/21 00:50 Ur Leukocyte Esterase Lg (Negative) 04/05/21 00:50 Urine WBC (Auto) 152.0 /HPF (0.0-6.0) H 04/05/21 00:50 Urine RBC (Auto) > 182.0 /HPF (0.0-6.0) 04/05/21 00:50 U Epithel Cells (Auto) 1.0 /HPF (0-13.0) 04/05/21 00:50 Urine Bacteria (Auto) 1+ /HPF (Negative) 04/05/21 00:50 Urine Mucus 3+ /HPF 04/05/21 00:50 Blood Type O POSITIVE 04/09/21 10:46 Antibody Screen Negative 04/09/21 10:46 Crossmatch See Detail 04/09/21 10:46 Monk/IV: Voiding Method Incontinent Active Medications - Current Medications Current Medications: Generic Name Dose Route Start Last Admin Trade Name Freq PRN Reason Stop Dose Admin Acetaminophen 650 mg 04/04/21 00:21 04/08/21 22:25 Acetaminophen 325 Mg Tab PO 650 mg Q4H PRN Administration Pain MILD(1-3)/Fever >100.5/SALAZAR Hydrocodone Bitart/Acetaminophen 1 each 04/06/21 14:42 04/07/21 04:40 Hydrocodone/Acetaminophen 5-325 Mg Tab PO 1 each Q4H PRN Administration Pain, Moderate (4-6) Albuterol 2.5 mg 04/04/21 02:00 Albuterol 2.5 Mg/3 Ml Nebu IH Q3HRT PRN Shortness Of Breath Atorvastatin Calcium 40 mg 04/04/21 22:00 04/11/21 21:47 Atorvastatin 40 Mg Tab PO 40 mg QHS GIA Administration Cholestyramine Resin 4 gm 04/05/21 12:00 04/11/21 21:47 Cholestyramine (With Sugar) 4 Gm Packet PO 4 gm BID GIA Administration Sodium Chloride 500 mls @ 0 mls/hr 04/07/21 11:09 04/07/21 16:48 Nacl 0.9% 500 Ml IV 500 mls/hr ONCE GIA Administration As Directed Loperamide HCl 2 mg 04/11/21 11:00 04/11/21 19:38 Loperamide 2 Mg Cap PO 2 mg Q2H PRN Administration Diarrhea Meclizine HCl 25 mg 04/04/21 01:00 Meclizine 25 Mg Tab PO Q8H PRN Vertigo Ondansetron HCl 4 mg 04/04/21 01:00 Ondansetron 4 Mg/2 Ml Inj IV Q8H PRN Nausea And Vomiting Pantoprazole Sodium 20 mg 04/06/21 15:00 04/11/21 11:12 Pantoprazole 20 Mg Tab PO 20 mg QDAC GIA Administration Rivaroxaban 15 mg 04/06/21 13:58 04/11/21 16:59 Rivaroxaban 15 Mg Tab PO 04/26/21 17:01 15 mg BIDDIAB GIA Administration Protocol Rivaroxaban 20 mg 04/27/21 08:00 Rivaroxaban 20 Mg Tab PO QPMDIAB GIA Protocol Sodium Chloride 10 ml 04/04/21 10:00 04/11/21 21:48 Sodium Chloride 0.9% 10 Ml Flush Syringe IV 10 ml BID GIA Administration Sodium Chloride 10 ml 04/04/21 01:00 Sodium Chloride 0.9% 10 Ml Flush Syringe IV PRN PRN LINE FLUSH Nutrition/Malnutrition Assess - Dietary Evaluation Nutrition/Malnutrition Findings: Nutrition Notes Start: 04/10/21 14:50 Freq: Status: Active Protocol: Document 04/10/21 14:51 ROSALIA (Rec: 04/10/21 14:52 [email or web address] [id number]) Nutrition Notes Need for Assessment generated from: LOS Initial or Follow up Brief Note Current Diet Regular Weight Status Obese Subjective/Other Information Pt screened for LOS. Spoke with pt via phone (14:50). She reports good PO intake of meals and verbalizes a few food preferences. Burn Absent Trauma Absent Minimum of two criteria No Nutrition Intervention Revisit per MD consult or patient Sign Off request:
[2021-04-12] MEDS: LOPERAMIDE 2 MG CAP PO PRN ×2 (10:34→21:14)
[2021-04-12] MEDS: CHOLESTYRAMINE (WITH SUGAR) 4 GM PACKET PO SCH ×3 (10:34→21:14)
[2021-04-12] MEDS: PANTOPRAZOLE 20 MG TAB PO SCH (10:34)
[2021-04-12] MEDS: RIVAROXABAN 15 MG TAB PO SCH ×2 (10:34→17:04)
[2021-04-13 07:43] LABS: Basophils # (Auto) 0.1 K/mm3 (0.0-0.1); Basophils % (Auto) 0.5 % (0.0-1.8); Eosinophils # (Auto) 0.1 K/mm3 (0.0-0.4); Eosinophils % (Auto) 0.5 % (0.0-4.3); Hematocrit 28.5 % (30.3-42.9); Hemoglobin 9.4 gm/dl (10.1-14.3); Mean Corpuscular HGB Conc 33 % (30-34); Mean Corpuscular Volume 88 fl (79-97); Monocytes # (Auto) 0.7 K/mm3 (0.0-0.8); Monocytes % (Auto) 6.6 % (0.0-7.3); Platelet Count 476 K/mm3 (140-440); Red Blood Count 3.23 M/mm3 (3.65-5.03)
[2021-04-13 08:00] LABS: Blood Urea Nitrogen 7 mg/dL (7-17); Calcium 7.7 mg/dL (8.4-10.2); Hemolysis Index 5
[2021-04-13 08:08] LABS: BUN/Creatinine Ratio 23
[2021-04-13] MEDS: RIVAROXABAN 15 MG TAB PO SCH ×2 (08:35→17:43)
[2021-04-13] MEDS: PANTOPRAZOLE 20 MG TAB PO SCH (08:35)
[2021-04-13] MEDS: LOPERAMIDE 2 MG CAP PO PRN ×4 (08:35→22:20)
--- NOTE | 2021-04-13 09:42 | Progress Note ---
Assessment and Plan Assessment and plan: 66-year-old female present with a chief complaint bilateral DVTs.Patient then had COVID, and her SOB worsened. Patient admitted to [facility] with SOB with oxygen dependence and PE. Ultimately underwent PE thrombectomy and SOB improved. Then patient was discharged, had no anticoagulation for 1 week, then started on warfarin and levels not being checked for 3 weeks. Patient complained of severe lower extremity swelling. RLE DVT study performed at bedside demonstrating CFV thrombus. Patient was sent to ER for severe swelling with DVT (DVT not previously present). Initially INR was 14.5 . Case discussed with vascular surgeon, Dr. Mittal who recommended to give vitamin K 10 mg IM x1 dose and serial PT/INR. He recommends starting heparin infusion once INR drops to 2.0 and will need a thrombectomy. Dr. Mittal reviewed ultrasound which demonstrating right common femoral vein thrombus and left superficial femoral vein thrombus (clearly listed on roustabout supervisor report and images, unclear why not listed on report). (1) Iliac, common femoral and the superficial femoral venous thrombosis With significant bilateral lower extremities Current Visit: Yes Status: Acute Plan to address problem: Supratherapeutic INR reversed with vitamin K and heparin infusion initiated. Dr Mittal consulted. Patient underwent extensive venous thrombectomy and angioplasty on Tuesday, 04/06. Has sinus tachycardia with BP, postprocedure afebrile. Compression stockings applied postprocedure. (2) chronic anemia Current Visit: Yes Status: Acute Plan to address problem: Could be related to large clot burden. Will monitor and transfuse as needed. No evidence of bruising or abnormal bleeding with a supratherapeutic INR. (3) chronic diarrhea Current Visit: Yes Status: Acute Plan to address problem: Patient reports chronic diarrhea since several months which initially started with some hematochezia according to patient. Recently frequent as she is unable to keep up getting in time to the bathroom. Her mobility is also significantly impaired due to severe low bilateral lower extremity edema from DVT. Patient did not get any GI work-up for this. Consulted GI and started on the Questran powder. Currently no abdominal pains or nausea. Tolerating diet. (4) Supratherapeutic INR Current Visit: Yes Status: Acute Plan to address problem: Warfarin discontinued. Patient was given vitamin K 10 mg Im x1 dose. Transition to heparin drip when the INR less than 2. Dr. Mittal, vascular surgeon consulted and is evaluating/following. Eventually, patient will be discharged home on Xarelto, as per Dr Mittal (5) recent pulmonary embolism Current Visit: Yes Status: Acute Plan to address problem: Patient has history of pulmonary embolism. Status post thrombectomy. Patient presented with supratherapeutic INR. Patient is given vitamin K 10 mg Im x1 dose. transitioned to heparin drip when the INR less than 2. Currently patient is on room air. Will be discharged on Xarelto. (6) leukocytosis, UTI UA consistent with UTI. Will start Rocephin and monitor. Blood cultures negative to date. DVT prophylaxis Current Visit: No Status: Acute Plan to address problem: On heparin infusion. Pepcid 20 mg p.o. twice daily for GI prophylaxis. Patient is a full code 04/07/2021. Patient underwent successful bilateral DVT and IVC thrombectomy and angioplasty yesterday. Keep SCD applied to prevent recurrent DVT and keep flow in leg veins. Keep ANGIE hose on. Transitioned from heparin to Xarelto. Patient with a hemoglobin of 6.8. We will type and cross and transfuse 2 units. Follow-up INR. INR yesterday still supratherapeutic at 2.39 04/08/2021. Continue Xarelto. With regards to the loose stools, GI recommends continuing Questran twice daily. Continue diet as tolerated. Await for placement for rehab. Await physical therapy evaluation for recommendations. Case management reports that patient will need to be transferred [facility] per insurance company. 04/09/2021. Await physical therapy evaluation with regards to discharge and possible rehab placement. Follow-up H&H after PRBCs. Continue Questran for loose stools 04/10/2021. Patient awaiting for SNF placement. 04/11/2021. Patient still complaining of loose stools. Continue Questran. We will add Imodium to the regimen. Continue anticoagulation with Xarelto per vascular surgery recommendations. Patient completed antibiotics of Rocephin for UTI. Await SNF placement. 04/12/2021. Continue anticoagulation with Xarelto per vascular surgery recommendations. Patient completed antibiotics of Rocephin for UTI. Await SNF placement. 04/13/2021. Patient with persistent tachycardia that may be physiologic secondary to pulmonary embolism. Check echocardiogram for further evaluation. Consider cardiology consultation if tachycardia continues. Continue anticoagulation with Xarelto per vascular surgery recommendations. Patient completed antibiotics of Rocephin for UTI. Await SNF placement. Check Covid testing prior to discharge to SNF. Chronic diarrhea improved with Questran and Imodium. History Interval history: No new issues overnight. Hospitalist Physical - Constitutional Vitals: Temp Pulse Resp BP Pulse Ox 98.1 F 113 H 18 111/66 92 04/13/21 08:26 04/13/21 08:26 04/13/21 08:26 04/13/21 08:26 04/13/21 08:26 General appearance: Present: no acute distress - EENT Eyes: Present: PERRL, EOM intact ENT: hearing intact, clear oral mucosa, dentition normal - Neck Neck: Present: supple, normal ROM - Respiratory Respiratory effort: normal Respiratory: bilateral: CTA - Cardiovascular Rhythm: regular Heart Sounds: Present: S1 & S2. Absent: gallop, rub - Extremities Extremities: no ischemia, No edema, Full ROM - Abdominal General gastrointestinal: soft, non-tender, non-distended, normal bowel sounds - Integumentary Integumentary: Present: clear, warm, dry - Neurologic Neurologic: CNII-XII intact, moves all extremities Results - Labs CBC & Chem 7: 04/13/21 07:29 04/13/21 07:29 Labs: Laboratory Last Values WBC 10.1 K/mm3 (4.5-11.0) 04/13/21 07:29 RBC 3.23 M/mm3 (3.65-5.03) L 04/13/21 07:29 Hgb 9.4 gm/dl (10.1-14.3) L 04/13/21 07:29 Hct 28.5 % (30.3-42.9) L 04/13/21 07:29 MCV 88 fl (79-97) 04/13/21 07:29 MCH 29 pg (28-32) 04/13/21 07:29 MCHC 33 % (30-34) 04/13/21 07:29 RDW 19.0 % (13.2-15.2) H 04/13/21 07:29 Plt Count 476 K/mm3 (140-440) H 04/13/21 07:29 Lymph % (Auto) 20.0 % (13.4-35.0) 04/13/21 07:29 Bulloch % (Auto) 6.6 % (0.0-7.3) 04/13/21 07:29 Eos % (Auto) 0.5 % (0.0-4.3) 04/13/21 07:29 Baso % (Auto) 0.5 % (0.0-1.8) 04/13/21 07:29 Lymph # (Auto) 2.0 K/mm3 (1.2-5.4) 04/13/21 07:29 Bulloch # (Auto) 0.7 K/mm3 (0.0-0.8) 04/13/21 07:29 Eos # (Auto) 0.1 K/mm3 (0.0-0.4) 04/13/21 07:29 Baso # (Auto) 0.1 K/mm3 (0.0-0.1) 04/13/21 07:29 Add Manual Diff Complete 04/07/21 08:47 Total Counted 100 04/07/21 08:47 Seg Neutrophils % 72.4 % (40.0-70.0) H 04/13/21 07:29 Seg Neuts % (Manual) 80.0 % (40.0-70.0) H 04/07/21 08:47 Band Neutrophils % 1.0 % 04/07/21 08:47 Lymphocytes % (Manual) 13.0 % (13.4-35.0) L 04/07/21 08:47 Reactive Lymphs % (Man) 0 % 04/07/21 08:47 Monocytes % (Manual) 4.0 % (0.0-7.3) 04/07/21 08:47 Eosinophils % (Manual) 0 % (0.0-4.3) 04/07/21 08:47 Basophils % (Manual) 0 % (0.0-1.8) 04/07/21 08:47 Metamyelocytes % 2.0 % 04/07/21 08:47 Myelocytes % 0 % 04/07/21 08:47 Promyelocytes % 0 % 04/07/21 08:47 Blast Cells % 0 % 04/07/21 08:47 Nucleated RBC % Not Reportable 04/07/21 08:47 Seg Neutrophils # 7.3 K/mm3 (1.8-7.7) 04/13/21 07:29 Seg Neutrophils # Man 13.8 K/mm3 (1.8-7.7) H 04/07/21 08:47 Band Neutrophils # 0.2 K/mm3 04/07/21 08:47 Lymphocytes # (Manual) 2.2 K/mm3 (1.2-5.4) 04/07/21 08:47 Abs React Lymphs (Man) 0.0 K/mm3 04/07/21 08:47 Monocytes # (Manual) 0.7 K/mm3 (0.0-0.8) 04/07/21 08:47 Eosinophils # (Manual) 0.0 K/mm3 (0.0-0.4) 04/07/21 08:47 Basophils # (Manual) 0.0 K/mm3 (0.0-0.1) 04/07/21 08:47 Metamyelocytes # 0.3 K/mm3 04/07/21 08:47 Myelocytes # 0.0 K/mm3 04/07/21 08:47 Promyelocytes # 0.0 K/mm3 04/07/21 08:47 Blast Cells # 0.0 K/mm3 04/07/21 08:47 WBC Morphology Not Reportable 04/07/21 08:47 Hypersegmented Neuts Not Reportable 04/07/21 08:47 Hyposegmented Neuts Not Reportable 04/07/21 08:47 Hypogranular Neuts Not Reportable 04/07/21 08:47 Smudge Cells Not Reportable 04/07/21 08:47 Toxic Granulation Not Reportable 04/07/21 08:47 Toxic Vacuolation Not Reportable 04/07/21 08:47 Dohle Bodies Not Reportable 04/07/21 08:47 Pelger-Huet Anomaly Not Reportable 04/07/21 08:47 Lisandro Rods Not Reportable 04/07/21 08:47 Platelet Estimate Consistent w auto 04/07/21 08:47 Clumped Platelets Not Reportable 04/07/21 08:47 Plt Clumps, EDTA Not Reportable 04/07/21 08:47 Large Platelets Not Reportable 04/07/21 08:47 Giant Platelets Not Reportable 04/07/21 08:47 Platelet Satelliting Not Reportable 04/07/21 08:47 Plt Morphology Comment Not Reportable 04/07/21 08:47 RBC Morphology Not Reportable 04/07/21 08:47 Dimorphic RBCs Not Reportable 04/07/21 08:47 Polychromasia Few 04/07/21 08:47 Hypochromasia 1+ 04/07/21 08:47 Poikilocytosis Not Reportable 04/07/21 08:47 Anisocytosis 1+ 04/07/21 08:47 Microcytosis Not Reportable 04/07/21 08:47 Macrocytosis Not Reportable 04/07/21 08:47 Spherocytes Not Reportable 04/07/21 08:47 Pappenheimer Bodies Not Reportable 04/07/21 08:47 Sickle Cells Not Reportable 04/07/21 08:47 Target Cells Not Reportable 04/07/21 08:47 Tear Drop Cells Not Reportable 04/07/21 08:47 Ovalocytes Not Reportable 04/07/21 08:47 Helmet Cells Not Reportable 04/07/21 08:47 Steele-Clarissa Bodies Not Reportable 04/07/21 08:47 Cambria Rings Not Reportable 04/07/21 08:47 Elroy Cells Not Reportable 04/07/21 08:47 Bite Cells Not Reportable 04/07/21 08:47 Crenated Cell Not Reportable 04/07/21 08:47 Elliptocytes Not Reportable 04/07/21 08:47 Acanthocytes (Spur) Not Reportable 04/07/21 08:47 Rouleaux Not Reportable 04/07/21 08:47 Hemoglobin C Crystals Not Reportable 04/07/21 08:47 Schistocytes Not Reportable 04/07/21 08:47 Malaria parasites Not Reportable 04/07/21 08:47 Wilton Bodies Not Reportable 04/07/21 08:47 Hem Pathologist Commnt No 04/07/21 08:47 PT 46.0 Sec. (12.2-14.9) H 04/08/21 06:47 INR 4.51 (0.87-1.13) H 04/08/21 06:47 APTT 38.0 Sec. (24.2-36.6) H 04/06/21 23:28 Heparin Anti-Xa Level > 2.00 U.I./ml (0.3-0.7) H 04/07/21 08:47 Sodium 138 mmol/L (137-145) 04/13/21 07:29 Potassium 3.4 mmol/L (3.6-5.0) L 04/13/21 07:29 Chloride 107.8 mmol/L (98-107) H 04/13/21 07:29 Carbon Dioxide 21 mmol/L (22-30) L 04/13/21 07:29 Anion Gap 13 mmol/L 04/13/21 07:29 BUN 7 mg/dL (7-17) 04/13/21 07:29 Creatinine 0.3 mg/dL (0.6-1.2) L 04/13/21 07:29 Estimated GFR > 60 ml/min 04/13/21 07:29 BUN/Creatinine Ratio 23 % 04/13/21 07:29 Glucose 89 mg/dL (65-100) 04/13/21 07:29 Lactic Acid 3.50 mmol/L (0.7-2.0) H* 04/04/21 20:54 Calcium 7.7 mg/dL (8.4-10.2) L 04/13/21 07:29 Magnesium 2.00 mg/dL (1.7-2.3) 04/07/21 08:47 Total Bilirubin 0.20 mg/dL (0.1-1.2) 04/07/21 08:47 AST 7 units/L (5-40) 04/07/21 08:47 ALT 6 units/L (7-56) L 04/07/21 08:47 Alkaline Phosphatase 134 units/L (35-129) H 04/07/21 08:47 Total Protein 3.5 g/dL (6.3-8.2) L 04/07/21 08:47 Albumin 1.7 g/dL (3.9-5) L 04/07/21 08:47 Albumin/Globulin Ratio 0.9 % 04/07/21 08:47 Procalcitonin 0.12 ng/mL (<0.15) 04/04/21 20:54 Urine Color Red (Yellow) 04/05/21 00:50 Urine Turbidity Cloudy (Clear) 04/05/21 00:50 Urine pH 6.0 (5.0-7.0) 04/05/21 00:50 Ur Specific Combes 1.035 (1.003-1.030) H 04/05/21 00:50 Urine Protein >500 mg/dL (Negative) 04/05/21 00:50 Urine Glucose (UA) Neg mg/dL (Negative) 04/05/21 00:50 Urine Ketones Neg mg/dL (Negative) 04/05/21 00:50 Urine Blood Lg (Negative) 04/05/21 00:50 Urine Nitrite Pos (Negative) 04/05/21 00:50 Urine Bilirubin Neg (Negative) 04/05/21 00:50 Urine Urobilinogen < 2.0 mg/dL (<2.0) 04/05/21 00:50 Ur Leukocyte Esterase Lg (Negative) 04/05/21 00:50 Urine WBC (Auto) 152.0 /HPF (0.0-6.0) H 04/05/21 00:50 Urine RBC (Auto) > 182.0 /HPF (0.0-6.0) 04/05/21 00:50 U Epithel Cells (Auto) 1.0 /HPF (0-13.0) 04/05/21 00:50 Urine Bacteria (Auto) 1+ /HPF (Negative) 04/05/21 00:50 Urine Mucus 3+ /HPF 04/05/21 00:50 Blood Type O POSITIVE 04/09/21 10:46 Antibody Screen Negative 04/09/21 10:46 Crossmatch See Detail 04/09/21 10:46 Monk/IV: Voiding Method Diaper Active Medications - Current Medications Current Medications: Generic Name Dose Route Start Last Admin Trade Name Freq PRN Reason Stop Dose Admin Acetaminophen 650 mg 04/04/21 00:21 04/08/21 22:25 Acetaminophen 325 Mg Tab PO 650 mg Q4H PRN Administration Pain MILD(1-3)/Fever >100.5/SALAZAR Hydrocodone Bitart/Acetaminophen 1 each 04/06/21 14:42 04/07/21 04:40 Hydrocodone/Acetaminophen 5-325 Mg Tab PO 1 each Q4H PRN Administration Pain, Moderate (4-6) Albuterol 2.5 mg 04/04/21 02:00 Albuterol 2.5 Mg/3 Ml Nebu IH Q3HRT PRN Shortness Of Breath Atorvastatin Calcium 40 mg 04/04/21 22:00 04/12/21 21:14 Atorvastatin 40 Mg Tab PO 40 mg QHS GIA Administration Cholestyramine Resin 4 gm 04/05/21 12:00 04/12/21 21:14 Cholestyramine (With Sugar) 4 Gm Packet PO 4 gm BID GIA Administration Sodium Chloride 500 mls @ 0 mls/hr 04/07/21 11:09 04/07/21 16:48 Nacl 0.9% 500 Ml IV 500 mls/hr ONCE GIA Administration As Directed Loperamide HCl 2 mg 04/11/21 11:00 04/13/21 08:35 Loperamide 2 Mg Cap PO 2 mg Q2H PRN Administration Diarrhea Meclizine HCl 25 mg 04/04/21 01:00 Meclizine 25 Mg Tab PO Q8H PRN Vertigo Ondansetron HCl 4 mg 04/04/21 01:00 Ondansetron 4 Mg/2 Ml Inj IV Q8H PRN Nausea And Vomiting Pantoprazole Sodium 20 mg 04/06/21 15:00 04/13/21 08:35 Pantoprazole 20 Mg Tab PO 20 mg QDAC GIA Administration Rivaroxaban 15 mg 04/06/21 13:58 04/13/21 08:35 Rivaroxaban 15 Mg Tab PO 04/26/21 17:01 15 mg BIDDIAB GIA Administration Protocol Rivaroxaban 20 mg 04/27/21 08:00 Rivaroxaban 20 Mg Tab PO QPMDIAB GIA Protocol Sodium Chloride 10 ml 04/04/21 10:00 04/12/21 22:45 Sodium Chloride 0.9% 10 Ml Flush Syringe IV 10 ml BID GIA Administration Sodium Chloride 10 ml 04/04/21 01:00 Sodium Chloride 0.9% 10 Ml Flush Syringe IV PRN PRN LINE FLUSH Nutrition/Malnutrition Assess - Dietary Evaluation Nutrition/Malnutrition Findings: Nutrition Notes Start: 04/10/21 14:50 Freq: Status: Active Protocol: Document 04/10/21 14:51 ROSALIA (Rec: 04/10/21 14:52 ROSALIA [id number]) Nutrition Notes Need for Assessment generated from: LOS Initial or Follow up Brief Note Current Diet Regular Weight Status Obese Subjective/Other Information Pt screened for LOS. Spoke with pt via phone (14:50). She reports good PO intake of meals and verbalizes a few food preferences. Burn Absent Trauma Absent Minimum of two criteria No Nutrition Intervention Revisit per MD consult or patient Sign Off request:
[2021-04-13] MEDS: CHOLESTYRAMINE (WITH SUGAR) 4 GM PACKET PO SCH ×2 (11:29→22:17)
[2021-04-14] MEDS: LOPERAMIDE 2 MG CAP PO PRN ×6 (02:36→23:41)
[2021-04-14] MEDS: RIVAROXABAN 15 MG TAB PO SCH ×2 (11:30→18:22)
[2021-04-14] MEDS: PANTOPRAZOLE 20 MG TAB PO SCH (11:30)
[2021-04-14] MEDS: CHOLESTYRAMINE (WITH SUGAR) 4 GM PACKET PO SCH ×2 (11:32→23:43)
[2021-04-14 11:53] LABS: Blood Urea Nitrogen 7 mg/dL (7-17); Calcium 7.9 mg/dL (8.4-10.2); Hemolysis Index 11
[2021-04-14 12:02] LABS: BUN/Creatinine Ratio 18
--- NOTE | 2021-04-14 19:45 | Progress Note ---
Assessment and Plan Assessment and plan: 66-year-old female present with a chief complaint bilateral DVTs.Patient then had COVID, and her SOB worsened. Patient admitted to [facility] with SOB with oxygen dependence and PE. Ultimately underwent PE thrombectomy and SOB improved. Then patient was discharged, had no anticoagulation for 1 week, then started on warfarin and levels not being checked for 3 weeks. Patient complained of severe lower extremity swelling. RLE DVT study performed at bedside demonstrating CFV thrombus. Patient was sent to ER for severe swelling with DVT (DVT not previously present). Initially INR was 14.5 . Case discussed with vascular surgeon, Dr. Mittal who recommended to give vitamin K 10 mg IM x1 dose and serial PT/INR. He recommends starting heparin infusion once INR drops to 2.0 and will need a thrombectomy. Dr. Mittal reviewed ultrasound which demonstrating right common femoral vein thrombus and left superficial femoral vein thrombus (clearly listed on inshore undersea warfare officer report and images, unclear why not listed on report). (1) Iliac, common femoral and the superficial femoral venous thrombosis With significant edema in bilateral lower extremities Current Visit: Yes Status: Acute Plan to address problem: Supratherapeutic INR reversed with vitamin K and heparin infusion initiated. Dr Mittal consulted. Patient underwent extensive venous thrombectomy and angioplasty on Tuesday, 04/06. Has sinus tachycardia with BP, postprocedure afebrile. Compression stockings applied postprocedure. Has some oozing of fluid from a small skin opening over the lateral aspect right hip. (2) chronic anemia Current Visit: Yes Status: Acute Plan to address problem: Could be related to large clot burden. Will monitor and transfuse as needed. No evidence of bruising or abnormal bleeding with a supratherapeutic INR. (3) chronic diarrhea Current Visit: Yes Status: Acute Plan to address problem: Patient reports chronic diarrhea since several months which initially started with some hematochezia according to patient. Recently frequent as she is unable to keep up getting in time to the bathroom. Her mobility is also significantly impaired due to severe low bilateral lower extremity edema from DVT. Patient did not get any GI work-up for this. Consulted GI and started on the Questran powder. Currently no abdominal pains or nausea. Tolerating diet. Reconsulted GI on 04/14 since patient continues to have significant diarrhea. (4) Supratherapeutic INR Current Visit: Yes Status: Acute Plan to address problem: Warfarin discontinued. Patient was given vitamin K 10 mg Im x1 dose. Transition to heparin drip when the INR less than 2. Dr. Mittal, vascular surgeon consulted and is evaluating/following. Eventually, patient will be discharged home on Xarelto, as per Dr Mittal (5) recent pulmonary embolism Current Visit: Yes Status: Acute Plan to address problem: Patient has history of pulmonary embolism. Status post thrombectomy. Patient presented with supratherapeutic INR. Patient is given vitamin K 10 mg Im x1 dose. transitioned to heparin drip when the INR less than 2. Currently patient is on room air. Will be discharged on Xarelto. (6) leukocytosis, UTI, resolved UA consistent with UTI. Treated with Rocephin. Blood cultures negative to date. DVT prophylaxis Current Visit: No Status: Acute Plan to address problem: On Xarelto. Pepcid 20 mg p.o. twice daily for GI prophylaxis. Patient is a f ull code 04/07/2021. Patient underwent successful bilateral DVT and IVC thrombectomy and angioplasty yesterday. Keep SCD applied to prevent recurrent DVT and keep flow in leg veins. Keep ANGIE hose on. Transitioned from heparin to Xarelto. Patient with a hemoglobin of 6.8. We will type and cross and transfuse 2 units. Follow-up INR. INR yesterday still supratherapeutic at 2.39 04/08/2021. Continue Xarelto. With regards to the loose stools, GI recommends continuing Questran twice daily. Continue diet as tolerated. Await for placement for rehab. Await physical therapy evaluation for recommendations. Case management reports that patient will need to be transferred to in [facility] per insurance company. 04/09/2021. Await physical therapy evaluation with regards to discharge and possible rehab placement. Follow-up H&H after PRBCs. Continue Questran for loose stools 04/10/2021. Patient awaiting for SNF placement. 04/11/2021. Patient still complaining of loose stools. Continue Questran. We will add Imodium to the regimen. Continue anticoagulation with Xarelto per vascular surgery recommendations. Patient completed antibiotics of Rocephin for UTI. Await SNF placement. 04/12/2021. Continue anticoagulation with Xarelto per vascular surgery recommendations. Patient completed antibiotics of Rocephin for UTI. Await SNF placement. 04/13/2021. Patient with persistent tachycardia that may be physiologic secondary to pulmonary embolism. Check echocardiogram for further evaluation. Consider cardiology consultation if tachycardia continues. Continue anticoagulation with Xarelto per vascular surgery recommendations. Patient completed antibiotics of Rocephin for UTI. Await SNF placement. Check Covid testing prior to discharge to SNF. Chronic diarrhea improved with Questran and Imodium. 04/14:Patient is very concerned about her persistent/severe diarrhea which is chronic. Patient states that she is unable to walk to bathroom due to poor ambulatory status and is distressed with continues stooling. GI consultrd today. Patient is reporting fluid oozing from a small skin opening around right hip area since several weeks but now the area is painful. She is very concerned about having infection there. CT ordered to rule out a deep abscess. Afebrile without leukocytosis. History Interval history: Patient is very concerned about her persistent/severe diarrhea which is chronic. Patient states that she is unable to walk to bathroom due to poor ambulatory status and is distressed with continues stooling. GI consultrd today. Patient is reporting fluid oozing from a small skin opening around right hip area since several weeks but now the area is painful. She is very concerned about having infection there. CT ordered to rule out a deep abscess. Afebrile without leukocytosis. Hospitalist Physical - Constitutional Vitals: Temp Pulse Resp BP Pulse Ox 99 F 111 H 18 111/58 96 04/14/21 17:00 04/14/21 17:00 04/14/21 17:00 04/14/21 17:00 04/14/21 17:00 General appearance: Present: no acute distress, obese, other (Anxious) - EENT Eyes: Present: PERRL, EOM intact ENT: hearing intact, clear oral mucosa - Neck Neck: Present: supple - Respiratory Respiratory effort: normal Respiratory: bilateral: CTA - Cardiovascular Rhythm: regular - Extremities Extremity abnormal: other (Significant bilateral lower extremity edema, 3-4+, with some improvement. Tiny skin opening in the right hip area laterally with oozing of clear fluid. No induration or signs of acute inflammation. May be mildly tender.) Results - Labs CBC & Chem 7: 04/13/21 07:29 04/14/21 10:32 Labs: Laboratory Last Values WBC 10.1 K/mm3 (4.5-11.0) 04/13/21 07: RBC 3.23 M/mm3 (3.65-5.03) L 04/13/21 07:29 Hgb 9.4 gm/dl (10.1-14.3) L 04/13/21 07:29 Hct 28.5 % (30.3-42.9) L 04/13/21 07:29 MCV 88 fl (79-97) 04/13/21 07:29 MCH 29 pg (28-32) 04/13/21 07: MCHC 33 % (30-34) 04/13/21 07: RDW 19.0 % (13.2-15.2) H 04/13/21 07:29 Plt Count 476 K/mm3 (140-440) H 04/13/21 07:29 Lymph % (Auto) 20.0 % (13.4-35.0) 04/13/21 07: [place] % (Auto) 6.6 % (0.0-7.3) 04/13/21 07: Eos % (Auto) 0.5 % (0.0-4.3) 04/13/21 07: Baso % (Auto) 0.5 % (0.0-1.8) 04/13/21 07: Lymph # (Auto) 2.0 K/mm3 (1.2-5.4) 04/13/21 07:29 [place] # (Auto) 0.7 K/mm3 (0.0-0.8) 04/13/21 07: Eos # (Auto) 0.1 K/mm3 (0.0-0.4) 04/13/21 07:29 Baso # (Auto) 0.1 K/mm3 (0.0-0.1) 04/13/21 07:29 Add Manual Diff Complete 04/07/21 08:47 Total Counted 100 04/07/21 08:47 Seg Neutrophils % 72.4 % (40.0-70.0) H 04/13/21 07:29 Seg Neuts % (Manual) 80.0 % (40.0-70.0) H 04/07/21 08:47 Band Neutrophils % 1.0 % 04/07/21 08:47 Lymphocytes % (Manual) 13.0 % (13.4-35.0) L 04/07/21 08:47 Reactive Lymphs % (Man) 0 % 04/07/21 08:47 Monocytes % (Manual) 4.0 % (0.0-7.3) 04/07/21 08:47 Eosinophils % (Manual) 0 % (0.0-4.3) 04/07/21 08:47 Basophils % (Manual) 0 % (0.0-1.8) 04/07/21 08:47 Metamyelocytes % 2.0 % 04/07/21 08:47 Myelocytes % 0 % 04/07/21 08:47 Promyelocytes % 0 % 04/07/21 08:47 Blast Cells % 0 % 04/07/21 08:47 Nucleated RBC % Not Reportable 04/07/21 08:47 Seg Neutrophils # 7.3 K/mm3 (1.8-7.7) 04/13/21 07:29 Seg Neutrophils # Man 13.8 K/mm3 (1.8-7.7) H 04/07/21 08:47 Band Neutrophils # 0.2 K/mm3 04/07/21 08:47 Lymphocytes # (Manual) 2.2 K/mm3 (1.2-5.4) 04/07/21 08:47 Abs React Lymphs (Man) 0.0 K/mm3 04/07/21 08:47 Monocytes # (Manual) 0.7 K/mm3 (0.0-0.8) 04/07/21 08:47 Eosinophils # (Manual) 0.0 K/mm3 (0.0-0.4) 04/07/21 08:47 Basophils # (Manual) 0.0 K/mm3 (0.0-0.1) 04/07/21 08:47 Metamyelocytes # 0.3 K/mm3 04/07/21 08:47 Myelocytes # 0.0 K/mm3 04/07/21 08:47 Promyelocytes # 0.0 K/mm3 04/07/21 08:47 Blast Cells # 0.0 K/mm3 04/07/21 08:47 WBC Morphology Not Reportable 04/07/21 08:47 Hypersegmented Neuts Not Reportable 04/07/21 08:47 Hyposegmented Neuts Not Reportable 04/07/21 08:47 Hypogranular Neuts Not Reportable 04/07/21 08:47 Smudge Cells Not Reportable 04/07/21 08:47 Toxic Granulation Not Reportable 04/07/21 08:47 Toxic Vacuolation Not Reportable 04/07/21 08:47 Dohle Bodies Not Reportable 04/07/21 08:47 Pelger-Huet Anomaly Not Reportable 04/07/21 08:47 Lisandro Rods Not Reportable 04/07/21 08:47 Platelet Estimate Consistent w auto 04/07/21 08:47 Clumped Platelets Not Reportable 04/07/21 08:47 Plt Clumps, EDTA Not Reportable 04/07/21 08:47 Large Platelets Not Reportable 04/07/21 08:47 Giant Platelets Not Reportable 04/07/21 08:47 Platelet Satelliting Not Reportable 04/07/21 08:47 Plt Morphology Comment Not Reportable 04/07/21 08:47 RBC Morphology Not Reportable 04/07/21 08:47 Dimorphic RBCs Not Reportable 04/07/21 08:47 Polychromasia Few 04/07/21 08:47 Hypochromasia 1+ 04/07/21 08:47 Poikilocytosis Not Reportable 04/07/21 08:47 Anisocytosis 1+ 04/07/21 08:47 Microcytosis Not Reportable 04/07/21 08:47 Macrocytosis Not Reportable 04/07/21 08:47 Spherocytes Not Reportable 04/07/21 08:47 Pappenheimer Bodies Not Reportable 04/07/21 08:47 Sickle Cells Not Reportable 04/07/21 08:47 Target Cells Not Reportable 04/07/21 08:47 Tear Drop Cells Not Reportable 04/07/21 08:47 Ovalocytes Not Reportable 04/07/21 08:47 Helmet Cells Not Reportable 04/07/21 08:47 [place] Bodies Not Reportable 04/07/21 08:47 [place] Rings Not Reportable 04/07/21 08:47 [place] Cells Not Reportable 04/07/21 08:47 Bite Cells Not Reportable 04/07/21 08:47 Crenated Cell Not Reportable 04/07/21 08:47 Elliptocytes Not Reportable 04/07/21 08:47 Acanthocytes (Spur) Not Reportable 04/07/21 08:47 Rouleaux Not Reportable 04/07/21 08:47 Hemoglobin C Crystals Not Reportable 04/07/21 08:47 Schistocytes Not Reportable 04/07/21 08:47 Malaria parasites Not Reportable 04/07/21 08:47 [place] Bodies Not Reportable 04/07/21 08:47 Hem Pathologist Commnt No 04/07/21 08:47 PT 46.0 Sec. (12.2-14.9) H 04/08/21 06:47 INR 4.51 (0.87-1.13) H 04/08/21 06:47 APTT 38.0 Sec. (24.2-36.6) H 04/06/21 23:28 Heparin Anti-Xa Level > 2.00 U.I./ml (0.3-0.7) H 04/07/21 08:47 Sodium 138 mmol/L (137-145) 04/14/21 10:32 Potassium 3.9 mmol/L (3.6-5.0) 04/14/21 10:32 Chloride 107.1 mmol/L (98-107) H 04/14/21 10:32 Carbon Dioxide 18 mmol/L (22-30) L 04/14/21 10:32 Anion Gap 17 mmol/L 04/14/21 10:32 BUN 7 mg/dL (7-17) 04/14/21 10:32 Creatinine 0.4 mg/dL (0.6-1.2) L 04/14/21 10:32 Estimated GFR > 60 ml/min 04/14/21 10:32 BUN/Creatinine Ratio 18 % 04/14/21 10:32 Glucose 116 mg/dL (65-100) H 04/14/21 10:32 Lactic Acid 3.50 mmol/L (0.7-2.0) H* 04/04/21 20:54 Calcium 7.9 mg/dL (8.4-10.2) L 04/14/21 10:32 Magnesium 1.70 mg/dL (1.7-2.3) 04/14/21 10:32 Total Bilirubin 0.20 mg/dL (0.1-1.2) 04/07/21 08:47 AST 7 units/L (5-40) 04/07/21 08:47 ALT 6 units/L (7-56) L 04/07/21 08:47 Alkaline Phosphatase 134 units/L (35-129) H 04/07/21 08:47 Total Protein 3.5 g/dL (6.3-8.2) L 04/07/21 08:47 Albumin 1.7 g/dL (3.9-5) L 04/07/21 08:47 Albumin/Globulin Ratio 0.9 % 04/07/21 08:47 Procalcitonin 0.12 ng/mL (<0.15) 04/04/21 20:54 Urine Color Red (Yellow) 04/05/21 00:50 Urine Turbidity Cloudy (Clear) 04/05/21 00:50 Urine pH 6.0 (5.0-7.0) 04/05/21 00:50 Ur Specific [place] 1.035 (1.003-1.030) H 04/05/21 00:50 Urine Protein >500 mg/dL (Negative) 04/05/21 00:50 Urine Glucose (UA) Neg mg/dL (Negative) 04/05/21 00:50 Urine Ketones Neg mg/dL (Negative) 04/05/21 00:50 Urine Blood Lg (Negative) 04/05/21 00:50 Urine Nitrite Pos (Negative) 04/05/21 00:50 Urine Bilirubin Neg (Negative) 04/05/21 00:50 Urine Urobilinogen < 2.0 mg/dL (<2.0) 04/05/21 00:50 Ur Leukocyte Esterase Lg (Negative) 04/05/21 00:50 Urine WBC (Auto) 152.0 /HPF (0.0-6.0) H 04/05/21 00:50 Urine RBC (Auto) > 182.0 /HPF (0.0-6.0) 04/05/21 00:50 U Epithel Cells (Auto) 1.0 /HPF (0-13.0) 04/05/21 00:50 Urine Bacteria (Auto) 1+ /HPF (Negative) 04/05/21 00:50 Urine Mucus 3+ /HPF 04/05/21 00:50 Coronavirus (PCR) Negative (Negative) 04/13/21 Unknown Blood Type O POSITIVE 04/09/21 10:46 Antibody Screen Negative 04/09/21 10:46 Crossmatch See Detail 04/09/21 10:46 Monk/IV: Voiding Method Diaper Active Medications - Current Medications Current Medications: Generic Name Dose Route Start Last Admin Trade Name Freq PRN Reason Stop Dose Admin Acetaminophen 650 mg 04/04/21 00:21 04/08/21 22:25 Acetaminophen 325 Mg Tab PO 650 mg Q4H PRN Administration Pain MILD(1-3)/Fever >100.5/SALAZAR Hydrocodone Bitart/Acetaminophen 1 each 04/06/21 14:42 04/07/21 04:40 Hydrocodone/Acetaminophen 5-325 Mg Tab PO 1 each Q4H PRN Administration Pain, Moderate (4-6) Albuterol 2.5 mg 04/04/21 02:00 Albuterol 2.5 Mg/3 Ml Nebu IH Q3HRT PRN Shortness Of Breath Atorvastatin Calcium 40 mg 04/04/21 22:00 04/13/21 22:17 Atorvastatin 40 Mg Tab PO 40 mg QHS GIA Administration Cholestyramine Resin 4 gm 04/05/21 12:00 04/14/21 11:32 Cholestyramine (With Sugar) 4 Gm Packet PO Not Given BID GIA Loperamide HCl 2 mg 04/11/21 11:00 04/14/21 15:35 Loperamide 2 Mg Cap PO 2 mg Q2H PRN Administration Diarrhea Meclizine HCl 25 mg 04/04/21 01:00 Meclizine 25 Mg Tab PO Q8H PRN Vertigo Ondansetron HCl 4 mg 04/04/21 01:00 Ondansetron 4 Mg/2 Ml Inj IV Q8H PRN Nausea And Vomiting Pantoprazole Sodium 20 mg 04/06/21 15:00 04/14/21 11:30 Pantoprazole 20 Mg Tab PO 20 mg QDAC GIA Administration Rivaroxaban 15 mg 04/06/21 13:58 04/14/21 18:22 Rivaroxaban 15 Mg Tab PO 04/26/21 17:01 15 mg BIDDIAB GIA Administration Protocol Rivaroxaban 20 mg 04/27/21 08:00 Rivaroxaban 20 Mg Tab PO QPMDIAB GIA Protocol Sodium Chloride 10 ml 04/04/21 10:00 04/14/21 11:32 Sodium Chloride 0.9% 10 Ml Flush Syringe IV 10 ml BID GIA Administration Sodium Chloride 10 ml 04/04/21 01:00 Sodium Chloride 0.9% 10 Ml Flush Syringe IV PRN PRN LINE FLUSH Nutrition/Malnutrition Assess - Dietary Evaluation Nutrition/Malnutrition Findings: Nutrition Notes Start: 04/10/21 14:50 Freq: Status: Active Protocol: Document 04/10/21 14:51 ROSALIA (Rec: 04/10/21 14:52 ROSALIA [id number]) Nutrition Notes Need for Assessment generated from: LOS Initial or Follow up Brief Note Current Diet Regular Weight Status Obese Subjective/Other Information Pt screened for LOS. Spoke with pt via phone (14:50). She reports good PO intake of meals and verbalizes a few food preferences. Burn Absent Trauma Absent Minimum of two criteria No Nutrition Intervention Revisit per MD consult or patient Sign Off request:
[2021-04-15] MEDS: LOPERAMIDE 2 MG CAP PO PRN ×5 (04:23→22:06)
[2021-04-15] MEDS: CHOLESTYRAMINE (WITH SUGAR) 4 GM PACKET PO SCH ×2 (10:18→22:07)
[2021-04-15] MEDS: PANTOPRAZOLE 20 MG TAB PO SCH (10:18)
[2021-04-15] MEDS: RIVAROXABAN 15 MG TAB PO SCH ×2 (10:18→17:07)
--- NOTE | 2021-04-15 10:41 | Cat Scan Report ---
CT RIGHT FEMUR WITH CONTRAST INDICATION / CLINICAL INFORMATION: Rule out deep abscess in the right upper thigh 100 ML [id number] . TECHNIQUE: All CT scans at this location are performed using CT dose reduction for ALARA by means of automated exposure control. COMPARISON: CT abdomen pelvis 04/03/2021 FINDINGS: BONES: No fracture. No osseous lesion. MUSCLES / TENDONS: There is edema of the thigh musculature but no intramuscular abscess. SOFT TISSUES: There is extensive subcutaneous edema and skin thickening of the right thigh but there is no abscess or fluid collection identified. 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 ADDITIONAL FINDINGS: There is free fluid in the pelvis with the callosal hyperenhancement of the visu alized colonic mucosa. IMPRESSION: 1. Extensive subcutaneous edema of the right thigh but no drainable fluid collection or abscess ident ified. There is also edema of the thigh musculature but no intramuscular abscess. 2. Small volume free fluid with hyperenhancement of the visualized colonic mucosa is nonspecific but can be seen with colitis. Findings are similar to prior exam. Signer Name: Juan Pierson MD Signed: 04/15/2021 9:42 AM Workstation Name: [id number]
--- NOTE | 2021-04-15 21:11 | Progress Note ---
Assessment and Plan 1. Diarrhea - etiology unclear. Going on for over 2 months. Need to assess for inflammatory process, C diff, and fat malaborption. No clear offending medications. - check stool studies - if negative, may need colonoscopy with biopsies, and further evaluation for other causes, including neuroendocrine lesions. Subjective Date of service: 04/15/21 Principal diagnosis: Extensive DVT Interval history: Asked to re-address diarrhea. Pt complains of ongoing diarrhea since ~ mid January, with urgency to the point of incontinence. No abd pain, N/V, GI bleed. On cholestyramine and Lomotil with improvement, but not resolution. Objective - Constitutional Vitals: Vital Signs - 12hr 04/15/21 04/15/21 04/15/21 10:00 10:42 15:22 Temperature 98.1 F Pulse Rate 102 H 111 H Respiratory 16 Rate Blood Pressure 97/60 O2 Sat by Pulse 97 96 Oximetry 04/15/21 20:47 Temperature 98.0 F Pulse Rate 123 H Respiratory 20 Rate Blood Pressure 112/64 O2 Sat by Pulse 95 Oximetry General appearance: Present: no acute distress - EENT Eyes: PERRL, EOM intact ENT: hearing intact - Cardiovascular Rhythm: regular Heart Sounds: Present: S1 & S2 - Gastrointestinal General gastrointestinal: Present: soft, non-tender - Labs CBC & Chem 7: 04/13/21 07:29 04/14/21 10:32 Medications & Allergies - Medications Allergies/Adverse Reactions: Allergies lisinopril Allergy (Severe, Verified 04/03/21 16:26) Anaphylaxis Patient says she has no allergies Home Medications: Home Medications Medication Instructions Recorded Confirmed Last Taken Type AtorvaSTATin [Lipitor] 40 mg PO QHS #30 tablet 03/05/21 04/11/21 Unknown Rx Meclizine [Antivert] 25 mg PO Q8H PRN #30 tablet 03/05/21 04/11/21 Unknown Rx ALBUTEROL NEB's [Proventil 0.083% 2.5 mg IH Q3HRT PRN nebu 04/08/21 Unknown Rx NEBS] Acetaminophen [Acetaminophen TAB] 650 mg PO Q4H PRN tablet 04/08/21 Unknown Rx AtorvaSTATin [Lipitor] 40 mg PO QHS tablet 04/08/21 Unknown Rx Cholestyramine (with Sugar) 4 gm PO BID packet 04/08/21 Unknown Rx [Questran] Pantoprazole [Protonix TAB] 20 mg PO QDAC tablet. 04/08/21 Unknown Rx Rivaroxaban [Xarelto] 15 mg PO BIDDIAB tablet 04/08/21 Unknown Rx Rivaroxaban [Xarelto] 20 mg PO QPMDIAB tablet 04/08/21 Unknown Rx Active Medications: Generic Name Dose Route Start Last Admin Trade Name Freq PRN Reason Stop Dose Admin Acetaminophen 650 mg 04/04/21 00:21 04/08/21 22:25 Acetaminophen 325 Mg Tab PO 650 mg Q4H PRN Administration Pain MILD(1-3)/Fever >100.5/SALAZAR Hydrocodone Bitart/Acetaminophen 1 each 04/06/21 14:42 04/07/21 04:40 Hydrocodone/Acetaminophen 5-325 Mg Tab PO 1 each Q4H PRN Administration Pain, Moderate (4-6) Albuterol 2.5 mg 04/04/21 02:00 Albuterol 2.5 Mg/3 Ml Nebu IH Q3HRT PRN Shortness Of Breath Atorvastatin Calcium 40 mg 04/04/21 22:00 04/14/21 23:43 Atorvastatin 40 Mg Tab PO 40 mg QHS GIA Administration Cholestyramine Resin 4 gm 04/05/21 12:00 04/15/21 10:18 Cholestyramine (With Sugar) 4 Gm Packet PO Not Given BID GIA Loperamide HCl 2 mg 04/11/21 11:00 04/15/21 17:07 Loperamide 2 Mg Cap PO 2 mg Q2H PRN Administration Diarrhea Meclizine HCl 25 mg 04/04/21 01:00 Meclizine 25 Mg Tab PO Q8H PRN Vertigo Ondansetron HCl 4 mg 04/04/21 01:00 Ondansetron 4 Mg/2 Ml Inj IV Q8H PRN Nausea And Vomiting Pantoprazole Sodium 20 mg 04/06/21 15:00 04/15/21 10:18 Pantoprazole 20 Mg Tab PO 20 mg QDAC GIA Administration Rivaroxaban 15 mg 04/06/21 13:58 04/15/21 17:07 Rivaroxaban 15 Mg Tab PO 04/26/21 17:01 15 mg BIDDIAB GIA Administration Protocol Rivaroxaban 20 mg 04/27/21 08:00 Rivaroxaban 20 Mg Tab PO QPMDIAB GIA Protocol Sodium Chloride 10 ml 04/04/21 10:00 04/15/21 10:18 Sodium Chloride 0.9% 10 Ml Flush Syringe IV 10 ml BID GIA Administration Sodium Chloride 10 ml 04/04/21 01:00 Sodium Chloride 0.9% 10 Ml Flush Syringe IV PRN PRN LINE FLUSH
--- NOTE | 2021-04-15 22:05 | Discharge Summary ---
Providers - Providers Date of Admission: 04/04/21 00:21 Attending physician: GRACIELA BILL MD 04/04/21 00:21 Consult to Physician [CONS] Routine Comment: Consulting Provider: DIONNE RIOS Physician Instructions: Reason For Exam: dvt 04/04/21 16:36 Consult to Physician [CONS] Routine Comment: Consulting Provider: CLYDE GIORDANO Physician Instructions: Reason For Exam: Chronic diarrhea, "colitis" 04/07/21 12:25 Physical Therapy Evaluation and Treat [CONS] Routine Comment: Reason For Exam: eval and treat 04/07/21 16:28 Consult to Case Management [CONS] Routine Services Needed at Discharge: Physical Therapy Notified:: home health care case manager Comment:: subacute rehab if possible 04/09/21 11:32 Occupational Therapy Evaluate and Treat [CONS] Urgent Comment: Reason For Exam: OT to eval and treat Primary care physician: ROLL SKINNER Hospitalization Condition: Stable Disposition: 01 HOME / SELF CARE / HOMELESS Core Measure Documentation - Palliative Care Palliative Care/ Comfort Measures: Not Applicable Exam - Constitutional Vitals: Temp Pulse Resp BP Pulse Ox 98.0 F 123 H 20 112/64 95 04/15/21 20:47 04/15/21 20:47 04/15/21 20:47 04/15/21 20:47 04/15/21 20:47 Plan Activity: advance as tolerated Diet: low fat Follow up with: DIONNE RIOS MD [Staff Physician] - 7 Days PRIMARY CARE, [Primary Care Provider] - 3-5 Days Forms: Discharge Signature Page
[2021-04-16 01:08] VITALS: BP 97/59
--- NOTE | 2021-04-17 17:10 | Event Note ---
Date: 04/17/21 I participated in peer to peer reviewed. Hospital stay denied for the days she was deemed stable but waiting to be placed in a SNF.
[2021-04-27] MEDS ORDERED: RIVAROXABAN 20 MG TAB PO SCH (08:00)
== END 2021-04-16 01:06 | disposition home or self-care (01) | DRG 270 ==
LOC: ED 16:00 → 4A 04-04 00:21
PROVIDERS: ADMIT Hospitalist; ATTEND Internal Medicine
PROC: 067D3ZZ Dilation of Left Common Iliac Vein, Percutaneous Approach (ICD-10-PCS; principal; 2021-04-06)
PROC: 06CD3ZZ Extirpation of Matter from Left Common Iliac Vein, Percutaneous Approach (ICD-10-PCS; 2021-04-06)
PROC: 067C3ZZ Dilation of Right Common Iliac Vein, Percutaneous Approach (ICD-10-PCS; 2021-04-06)
PROC: 06CC3ZZ Extirpation of Matter from Right Common Iliac Vein, Percutaneous Approach (ICD-10-PCS; 2021-04-06)
PROC: 06H03DZ Insertion of Intraluminal Device into Inferior Vena Cava, Percutaneous Approach (ICD-10-PCS; 2021-04-06)
PROC: B54DZZ3 Ultrasonography of Bilateral Lower Extremity Veins, Intravascular (ICD-10-PCS; 2021-04-06)
PROC: 30233N1 Transfusion of Nonautologous Red Blood Cells into Peripheral Vein, Percutaneous Approach (ICD-10-PCS; 2021-04-07)
DX: I82.422 Acute embolism and thrombosis of left iliac vein (principal); I26.99 Other pulmonary embolism without acute cor pulmonale; N39.0 Urinary tract infection, site not specified; I82.412 Acute embolism and thrombosis of left femoral vein; D64.9 Anemia, unspecified; K52.9 Noninfective gastroenteritis and colitis, unspecified; Z87.891 Personal history of nicotine dependence; I82.413 Acute embolism and thrombosis of femoral vein, bilateral; Z20.822 Contact with and (suspected) exposure to COVID-19
CPT/HCPCS: 36415; 37187; 37248; 37249; 74177; 75822; 75825; 80048; 80053; 81001; 82140; 82565; 82705; 83735; 84145; 85007; 85014; 85018; 85025; 85027; 85049; 85520; 85610; 85730; 86850; 86900; 86901; 86920; 87040; 87493; 93970; 94640; G0378; J3490; C1725; C1757; C1769; C1773; C1887; C1894; J0690; J0696; J1644; J2250; J3010; J3430; J7040; P9016; Q9967; U0003

== ENCOUNTER 2021-06-22 12:56 | Inpatient (IN) | payer OTHER ==
[2021-06-22 14:29] LABS: Basophils # (Auto) 0.1 K/mm3 (0.0-0.1); Basophils % (Auto) 0.7 % (0.0-1.8); Eosinophils % (Auto) 0.5 % (0.0-4.3); Hemoglobin 6.5 gm/dl (10.1-14.3); Lymphocytes # (Auto) 1.9 K/mm3 (1.2-5.4); Lymphocytes % (Auto) 23.2 % (13.4-35.0); Mean Corpuscular HGB Conc 30 % (30-34); Mean Corpuscular Volume 82 fl (79-97); Monocytes # (Auto) 0.8 K/mm3 (0.0-0.8); Monocytes % (Auto) 9.8 % (0.0-7.3); Platelet Count 698 K/mm3 (140-440); Red Blood Count 2.69 M/mm3 (3.65-5.03)
[2021-06-22 14:30] LABS: Red Cell Distribution Width 22.8 % (13.2-15.2)
[2021-06-22 14:41] LABS: INR 3.08 (0.87-1.13)
[2021-06-22 14:42] LABS: Partial Thromboplastin Time 49.4 Sec. (24.2-36.6)
[2021-06-22 14:55] LABS: Alanine Aminotransferase 6 units/L (7-56); Albumin 3.1 g/dL (3.9-5); Blood Urea Nitrogen 8 mg/dL (7-17); Calcium 8.7 mg/dL (8.4-10.2); Hemolysis Index 2
[2021-06-22 14:56] LABS: BUN/Creatinine Ratio 16; Bilirubin,Direct < 0.2 mg/dL (0-0.2)
[2021-06-22] MEDS ORDERED: SODIUM CHLORIDE 0.9% 500 ML 500 ML IV ONE (15:47)
--- NOTE | 2021-06-22 15:49 | Emergency Department Report ---
ED General Adult HPI - General Chief complaint: Nausea/Vomiting/Diarrhea Stated complaint: DIARRHEA X 7 MONTHS Time Seen by Provider: 06/22/21 15:18 Source: patient, EMS ( EMS documentation not available at time of chart dictation ), RN notes reviewed, old records reviewed Mode of arrival: Stretcher Limitations: No Limitations - History of Present Illness Initial comments: During the history and physical, I have not complete personal protective equipm ent. This is a 66-year-old female, with past medical history of pulmonary embolism, currently on Xarelto, chronic diarrhea, presenting to the ER today with a primary complaints of bloody diarrhea. She has chronic diarrhea, and saw her outpatient steam table associate last week, who initiated her on antibiotics. She reports that shortly after starting antibiotics, she began to have profuse bloody bowel movements. She denies headache, neck pain, chest pain, abdominal pain, hematemesis. She also endorses new onset shortness of breath, and bilateral lower extremity swelling. She endorses compliance with her medications. She complains of rectal discomfort from defecating so much. -: days(s) Location: left, right, lower extremity Severity scale (0 -10): 0 Consistency: constant Improves with: none Worsens with: movement - Related Data Previous Rx's Medication Instructions Recorded Last Taken Type Meclizine [Antivert] 25 mg PO Q8H PRN #30 tablet 03/05/21 Unknown Rx ALBUTEROL NEB's [Proventil 0.083% 2.5 mg IH Q3HRT PRN nebu 04/08/21 Unknown Rx NEBS] AtorvaSTATin [Lipitor] 40 mg PO QHS tablet 04/08/21 Unknown Rx Cholestyramine (with Sugar) 4 gm PO BID packet 04/08/21 Unknown Rx [Questran] Pantoprazole [Protonix TAB] 20 mg PO QDAC tablet. 04/08/21 Unknown Rx Rivaroxaban [Xarelto] 15 mg PO BIDDIAB tablet 04/08/21 Unknown Rx Allergies Allergy/AdvReac Type Severity Reaction Status Date / Time lisinopril Allergy Severe Anaphylaxis Verified 04/03/21 16:26 ED Review of Systems ROS: Stated complaint: DIARRHEA X 7 MONTHS Other details as noted in HPI Constitutional: malaise, weakness. denies: fever Eyes: denies: vision change Respiratory: shortness of breath Cardiovascular: edema. denies: chest pain Gastrointestinal: hematochezia. denies: abdominal pain, hematemesis, melena Genitourinary: denies: dysuria Neurological: weakness Hematological/Lymphatic: easy bleeding ED Past Medical Hx - Past Medical History Additional medical history: hemorrhoids that have been banded in the past per pt, HYPOKALEMIA, PE - Surgical History Additional Surgical History: Hemorrhoids banded spring 2020, IVC PLACEMENT - Social History Smoking Status: Never Smoker - Medications Home Medications: Home Medications Medication Instructions Recorded Confirmed Last Taken Type Meclizine [Antivert] 25 mg PO Q8H PRN #30 tablet 03/05/21 04/11/21 Unknown Rx ALBUTEROL NEB's [Proventil 0.083% 2.5 mg IH Q3HRT PRN nebu 04/08/21 Unknown Rx NEBS] AtorvaSTATin [Lipitor] 40 mg PO QHS tablet 04/08/21 Unknown Rx Cholestyramine (with Sugar) 4 gm PO BID packet 04/08/21 Unknown Rx [Questran] Pantoprazole [Protonix TAB] 20 mg PO QDAC tablet. 04/08/21 Unknown Rx Rivaroxaban [Xarelto] 15 mg PO BIDDIAB tablet 04/08/21 Unknown Rx ED Physical Exam - General Limitations: Physical Limitation, Other (During the physical examination, I am chaperoned by respiratory therapist Lindsey) General appearance: alert, in no apparent distress - Head Head exam: Present: atraumatic, normocephalic - Eye Eye exam: Present: normal appearance, EOMI - ENT ENT exam: Present: normal exam, normal orophraynx, mucous membranes moist, normal external ear exam - Neck Neck exam: Present: normal inspection, full ROM. Absent: tenderness, meningismus - Respiratory Respiratory exam: Present: respiratory distress, other (Pulmonary auscultation not performed secondary to lack of disposable stethoscope). Absent: stridor - Cardiovascular Cardiovascular Exam: Present: other (Cardiac auscultation not performed secondary to lack of disposable stethoscope) - GI/Abdominal GI/Abdominal exam: Present: soft. Absent: distended, tenderness, guarding, rebound, rigid, pulsatile mass - Rectal Rectal exam: Present: normal inspection, bloody stool, other (Patient provides verbal consent for rectal examination. Grossly bloody stool with brown stool is appreciated on patient's gluteal cheeks and rectal) - Extremities Exam Extremities exam: Present: normal inspection, full ROM, pedal edema (3+ edema in the bilateral lower extremity), other (2+ pulses noted in the bilateral upper and lower extremities. There is no palpable cord. negative Homans sign. Muscular compartments are soft. The pelvis is stable.). Absent: calf tenderness - Back Exam Back exam: Present: normal inspection. Absent: tenderness, CVA tenderness (R), CVA tenderness (L), paraspinal tenderness, vertebral tenderness - Neurological Exam Neurological exam: Present: alert, other (No facial droop. Tongue midline. Extraocular movements intact bilaterally. Facial sensation intact to light touch in V1, V2, V3 distribution bilaterally. 5 and a 5 strength in 4 extremities. Sensation intact to light touch in 4 extremities.) - Psychiatric Psychiatric exam: Present: anxious - Skin Skin exam: Present: warm, dry, intact, normal color. Absent: rash ED Course Vital Signs 06/22/21 13:04 Temperature 98.4 F Pulse Rate 79 Respiratory 16 Rate Blood Pressure 141/81 [Left] O2 Sat by Pulse 98 Oximetry - Reevaluation(s) Reevaluation #1: 06/22/21 16:25 Patient saturating 88% on room air. Requires 2 L supplemental oxygen ED Medical Decision Making - Lab Data Result diagrams: 06/22/21 13:59 06/22/21 13:59 Vital Signs 06/22/21 13:04 Temperature 98.4 F Pulse Rate 79 Respiratory 16 Rate Blood Pressure 141/81 [Left] O2 Sat by Pulse 98 Oximetry Lab Results 06/22/21 06/22/21 06/22/21 Range/Units 13:59 13:59 13:59 WBC 8.3 (4.5-11.0) K/mm3 RBC 2.69 L (3.65-5.03) M/mm3 Hgb 6.5 L (10.1-14.3) gm/dl Hct 22.0 L (30.3-42.9) % MCV 82 (79-97) fl MCH 24 L (28-32) pg MCHC 30 (30-34) % RDW 22.8 H (13.2-15.2) % Plt Count 698 H (140-440) K/mm3 Lymph % (Auto) 23.2 (13.4-35.0) % [place] % (Auto) 9.8 H (0.0-7.3) % Eos % (Auto) 0.5 (0.0-4.3) % Baso % (Auto) 0.7 (0.0-1.8) % Lymph # (Auto) 1.9 (1.2-5.4) K/mm3 [place] # (Auto) 0.8 (0.0-0.8) K/mm3 Eos # (Auto) 0.0 (0.0-0.4) K/mm3 Baso # (Auto) 0.1 (0.0-0.1) K/mm3 Seg Neutrophils % 65.8 (40.0-70.0) % Seg Neutrophils # 5.5 (1.8-7.7) K/mm3 PT (12.2-14.9) Sec. INR (0.87-1.13) APTT (24.2-36.6) Sec. Sodium 146 H (137-145) mmol/L Potassium 3.5 L (3.6-5.0) mmol/L Chloride 109.9 H (98-107) mmol/L Carbon Dioxide 21 L (22-30) mmol/L Anion Gap 19 mmol/L BUN 8 (7-17) mg/dL Creatinine 0.5 L (0.6-1.2) mg/dL Estimated GFR > 60 ml/min BUN/Creatinine Ratio 16 % Glucose 107 H (65-100) mg/dL Calcium 8.7 (8.4-10.2) mg/dL Total Bilirubin 0.40 (0.1-1.2) mg/dL Direct Bilirubin < 0.2 (0-0.2) mg/dL Indirect Bilirubin 0.2 mg/dL AST 14 (5-40) units/L ALT 6 L (7-56) units/L Alkaline Phosphatase 59 (35-129) units/L Total Protein 5.8 L (6.3-8.2) g/dL Albumin 3.1 L (3.9-5) g/dL Albumin/Globulin Ratio 1.1 % Lipase 14 (13-60) units/L Blood Type O POSITIVE Antibody Screen Positive Crossmatch See Detail 06/22/21 Range/Units 13:59 WBC (4.5-11.0) K/mm3 RBC (3.65-5.03) M/mm3 Hgb (10.1-14.3) gm/dl Hct (30.3-42.9) % MCV (79-97) fl MCH (28-32) pg MCHC (30-34) % RDW (13.2-15.2) % Plt Count (140-440) K/mm3 Lymph % (Auto) (13.4-35.0) % [place] % (Auto) (0.0-7.3) % Eos % (Auto) (0.0-4.3) % Baso % (Auto) (0.0-1.8) % Lymph # (Auto) (1.2-5.4) K/mm3 [place] # (Auto) (0.0-0.8) K/mm3 Eos # (Auto) (0.0-0.4) K/mm3 Baso # (Auto) (0.0-0.1) K/mm3 Seg Neutrophils % (40.0-70.0) % Seg Neutrophils # (1.8-7.7) K/mm3 PT 36.0 H (12.2-14.9) Sec. INR 3.08 H (0.87-1.13) APTT 49.4 H (24.2-36.6) Sec. Sodium (137-145) mmol/L Potassium (3.6-5.0) mmol/L Chloride (98-107) mmol/L Carbon Dioxide (22-30) mmol/L Anion Gap mmol/L BUN (7-17) mg/dL Creatinine (0.6-1.2) mg/dL Estimated GFR ml/min BUN/Creatinine Ratio % Glucose (65-100) mg/dL Calcium (8.4-10.2) mg/dL Total Bilirubin (0.1-1.2) mg/dL Direct Bilirubin (0-0.2) mg/dL Indirect Bilirubin mg/dL AST (5-40) units/L ALT (7-56) units/L Alkaline Phosphatase (35-129) units/L Total Protein (6.3-8.2) g/dL Albumin (3.9-5) g/dL Albumin/Globulin Ratio % Lipase (13-60) units/L Blood Type Antibody Screen Crossmatch - Radiology Data Radiology results: pending, report reviewed, image reviewed CHEST 1 VIEW 06/22/2021 3:51 PM INDICATION / CLINICAL INFORMATION: dyspnea. COMPARISON: 02/21/2021 04/03/2021 FINDINGS: SUPPORT DEVICES: None. HEART / MEDIASTINUM: No significant abnormality. LUNGS / PLEURA: There is elevation the right hemidiaphragm. There is blunting of the right costophrenic angle. There is increased reticular opacities throughout the lung bases. No pneumothorax. ADDITIONAL FINDINGS: No significant additional findings. IMPRESSION: 1. Elevation right hemidiaphragm with small right pleural effusion. 2. There is increased reticular opacities throughout the lung bases which may represent sequela of interstitial lung disease. Signer Name: Stephan Rivero DO Signed: 06/22/2021 3:24 PM Workstation Name: [id number] DUPLEX DOPPLER LOWER EXTREMITY VEINS, BILATERAL INDICATION: b/l lower ext swelling. TECHNIQUE: Duplex doppler imaging was performed through the veins of both lower extremities using venous compression and other maneuvers. COMPARISON: No relevant prior imaging study available. FINDINGS: Right Common femoral vein: Negative. Right Superficial femoral vein: Negative. Right Popliteal vein: Negative. Right Calf veins: Negative. Left Common femoral vein: Negative. Left Superficial femoral vein: Negative. Left Popliteal vein: Negative. Left Calf veins: Negative. Additional findings: None.. IMPRESSION: 1. No sonographic evidence for DVT in either lower extremity. Signer Name: Luis Villarreal MD Signed: 06/22/2021 4:02 PM Workstation Name: [id number] - Medical Decision Making Differential diagnosis, including but not limited to: C. difficile, colitis, GI bleed, anemia, CHF, DVT, PE Assessment and plan: 66-year-old female with a primary complaint of profuse bloody diarrhea which is new since starting antibiotics. Concerning for C. difficile. Place patient on isolation. Start oral vancomycin. Send stool studies. Contacted GI physician on-call, Dr. Ortiz. Discussed history, physical, laboratory studies and imaging studies, and clinical impression. He will follow in consultation. Recommends oral vancomycin. Is in agreement with transfusion of packed red blood cells. Transfuse 1 unit of packed red blood cells. X-ray of the chest reviewed and appreciated, suggestive of CHF, with lower extremity edema. Place patient on O2, and start Lasix. Obtain bilateral lower extremity DVT study. Even if this patient does have a pulmonary embolism which is recurrent, she is currently on Xarelto, INR/coagulation parameters therapeutic, and given history of bloody diarrhea and anemia, would not initiate systemic anticoagulation at this time. CTA chest at this point time will not change my acute management. Patient is agreeable to admission and hospitalization. Hospital physician, Dr. Janette Angela to admit patient to the medical service. Patient has acute hypoxic respiratory failure, and acute GI bleed, which require emergent interventions and therapeutics. The patient is not medically suitable or stable for transfer at this time Critical Care Time: Yes Critical care time in (mins) excluding proc time.: 45 Critical care attestation.: If time is entered above; I have spent that time in minutes in the direct care of this critically ill patient, excluding procedure time. ED Disposition Clinical Impression: Acute respiratory failure with hypoxia, GI bleed, Anemia, Anticoagulated, Lower extremity edema, Diarrhea Disposition: ADMITTED INPATIENT Is pt being admited?: Yes Does the pt Need Aspirin: No Condition: Serious
[2021-06-22] MEDS ORDERED: VANCOMYCIN 250 MG/10 ML ORAL LIQD PO STA (16:07)
[2021-06-22] MEDS ORDERED: FUROSEMIDE 40 MG/4 ML INJ IV ONE (16:24)
--- NOTE | 2021-06-22 16:28 | XRay Report ---
CHEST 1 VIEW 06/22/2021 3:51 PM INDICATION / CLINICAL INFORMATION: dyspnea. COMPARISON: 02/21/2021 04/03/2021 FINDINGS: SUPPORT DEVICES: None. HEART / MEDIASTINUM: No significant abnormality. LUNGS / PLEURA: There is elevation the right hemidiaphragm. There is blunting of the right costophren ic angle. There is increased reticular opacities throughout the lung bases. No pneumothorax. ADDITIONAL FINDINGS: No significant additional findings. IMPRESSION: 1. Elevation right hemidiaphragm with small right pleural effusion. 2. There is increased reticular opacities throughout the lung bases which may represent sequela of in terstitial lung disease. Signer Name: Stephan Rivero DO Signed: 06/22/2021 4:24 PM Workstation Name: [id number]
[2021-06-22] MEDS ORDERED: HYDROmorphone 1 MG/1 ML INJ IV PRN (17:00)
[2021-06-22] MEDS ORDERED: ALBUTEROL 2.5 MG/3 ML NEBU IH PRN (17:00)
[2021-06-22] MEDS ORDERED: ONDANSETRON 4 MG/2 ML INJ IV PRN (17:00)
[2021-06-22] MEDS ORDERED: MORPHINE 2 MG/1 ML INJ IV PRN (17:00)
--- NOTE | 2021-06-22 17:06 | Vascular Lab Report ---
DUPLEX DOPPLER LOWER EXTREMITY VEINS, BILATERAL INDICATION: b/l lower ext swelling. TECHNIQUE: Duplex doppler imaging was performed through the veins of both lower extremities using venous devonte praveen and other maneuvers. COMPARISON: No relevant prior imaging study available. FINDINGS: Right Common femoral vein: Negative. Right Superficial femoral vein: Negative. Right Popliteal vein: Negative. Right Calf veins: Negative. Left Common femoral vein: Negative. Left Superficial femoral vein: Negative. Left Popliteal vein: Negative. Left Calf veins: Negative. Additional findings: None.. IMPRESSION: 1. No sonographic evidence for DVT in either lower extremity. Signer Name: Luis Villarreal MD Signed: 06/22/2021 5:02 PM Workstation Name: [id number]
[2021-06-22] MEDS ORDERED: SODIUM CHLORIDE 0.9% 250ML 250 ML ONE (22:30)
[2021-06-23] MEDS ORDERED: FUROSEMIDE 40 MG/4 ML INJ ONE (02:10)
[2021-06-23] MEDS ORDERED: FUROSEMIDE 40 MG/4 ML INJ IV ONE (03:00)
--- NOTE | 2021-06-23 06:35 | History and Physical Report ---
History of Present Illness Date of examination: 06/22/21 Date of admission: 06/22/21 16:24 Chief complaint: Blood per rectum since a.m. History of present illness: 6-year-old female, very poor historian comes in for dylan red blood per rectum. Patient states that she has been having diarrhea for last 4 months and was admitted here in March 2021 and discharged on 15 April 2021. Patient was started on Questran for chronic diarrhea. Patient continued to have intermittent bloody stools. Patient has hemorrhoids.. Today patient had bloody diarrhea and increasing amounts. No fever or chills. Patient is on Xarelto for pulmonary embolism mild multiple deep venous thrombosis. Patient was advised to take Xarelto on a regular basis by Vascular surgery. In the ER her hemoglobin and hematocrit were very low Previous admission March 2021 (1) Iliac, common femoral and the superficial femoral venous thrombosis With significant edema in bilateral lower extremities Current Visit: Yes Status: Acute Plan to address problem: Supratherapeutic INR reversed with vitamin K and heparin infusion initiated. Dr Mittal consulted. Patient underwent extensive venous thrombectomy and angioplasty on Tuesday, 04/06. Has sinus tachycardia with BP, postprocedure afebrile. Compression stockings applied postprocedure. Has some oozing of fluid from a small skin opening over the lateral aspect right hip. (2) chronic anemia Current Visit: Yes Status: Acute Plan to address problem: Could be related to large clot burden. Will monitor and transfuse as needed. No evidence of bruising or abnormal bleeding with a supratherapeutic INR. (3) chronic diarrhea Current Visit: Yes Status: Acute Plan to address problem: Patient reports chronic diarrhea since several months which initially started with some hematochezia according to patient. Recently frequent as she is unable to keep up getting in time to the bathroom. Her mobility is also significantly impaired due to severe low bilateral lower extremity edema from DVT. Patient did not get any GI work-up for this. Consulted GI and started on the Questran powder. Currently no abdominal pains or nausea. Tolerating diet. Reconsulted GI on 04/14 since patient continues to have significant diarrhea. (4) Supratherapeutic INR Current Visit: Yes Status: Acute Plan to address problem: Warfarin discontinued. Patient was given vitamin K 10 mg Im x1 dose. Transition to heparin drip when the INR less than 2. Dr. Mittal, vascular surgeon consulted and is evaluating/following. Eventually, patient will be discharged home on Xarelto, as per Dr Mittal (5) recent pulmonary embolism Current Visit: Yes Status: Acute Plan to address problem: Patient has history of pulmonary embolism. Status post thrombectomy. Patient presented with supratherapeutic INR. Patient is given vitamin K 10 mg Im x1 dose. transitioned to heparin drip when the INR less than 2. Currently patient is on room air. Will be discharged on Xarelto. (6) leukocytosis, UTI, resolved UA consistent with UTI. Treated with Rocephin. Blood cultures negative to date. - Past Medical History Additional medical history: hemorrhoids that have been banded in the past per pt, HYPOKALEMIA, PE - Surgical History Additional Surgical History: Hemorrhoids banded spring 2020, IVC PLACEMENT - Social History Smoking Status: Never Smoker - Medications Home Medications: Home Medications Medication Instructions Recorded Confirmed Last Taken Type Meclizine [Antivert] 25 mg PO Q8H PRN #30 tablet 03/05/21 04/11/21 Unknown Rx ALBUTEROL NEB's [Proventil 0.083% 2.5 mg IH Q3HRT PRN nebu 04/08/21 Unknown Rx NEBS] AtorvaSTATin [Lipitor] 40 mg PO QHS tablet 04/08/21 Unknown Rx Cholestyramine (with Sugar) 4 gm PO BID packet 04/08/21 Unknown Rx [Questran] Pantoprazole [Protonix TAB] 20 mg PO QDAC tablet. 04/08/21 Unknown Rx Rivaroxaban [Xarelto] 15 mg PO BIDDIAB tablet 04/08/21 Unknown Rx Review of Systems ROS: Stated complaint: DIARRHEA X 7 MONTHS Other details as noted in HPI Constitutional: malaise, weakness. denies: fever Eyes: denies: vision change Respiratory: shortness of breath Cardiovascular: edema. denies: chest pain Gastrointestinal: hematochezia. denies: abdominal pain, hematemesis, melena Genitourinary: denies: dysuria Neurological: weakness Hematological/Lymphatic: easy bleeding Medications and Allergies Allergies Allergy/AdvReac Type Severity Reaction Status Date / Time lisinopril Allergy Severe Anaphylaxis Verified 04/03/21 16:26 Home Medications Medication Instructions Recorded Confirmed Last Taken Type Meclizine [Antivert] 25 mg PO Q8H PRN #30 tablet 03/05/21 04/11/21 Unknown Rx ALBUTEROL NEB's [Proventil 0.083% 2.5 mg IH Q3HRT PRN nebu 04/08/21 Unknown Rx NEBS] AtorvaSTATin [Lipitor] 40 mg PO QHS tablet 04/08/21 Unknown Rx Cholestyramine (with Sugar) 4 gm PO BID packet 04/08/21 Unknown Rx [Questran] Pantoprazole [Protonix TAB] 20 mg PO QDAC tablet. 04/08/21 Unknown Rx Rivaroxaban [Xarelto] 15 mg PO BIDDIAB tablet 04/08/21 Unknown Rx Active Meds: Active Medications Acetaminophen (Acetaminophen 325 Mg Tab) 650 mg PO Q4H PRN PRN Reason: Pain MILD(1-3)/Fever >100.5/SALAZAR Albuterol (Albuterol 2.5 Mg/3 Ml Nebu) 2.5 mg IH Q3HRT PRN PRN Reason: Shortness Of Breath Hydromorphone HCl (Hydromorphone 1 Mg/1 Ml Inj) 0.5 mg IV Q3H PRN PRN Reason: Pain , Severe (7-10) Morphine Sulfate (Morphine 2 Mg/1 Ml Inj) 2 mg IV Q4H PRN PRN Reason: Pain, Moderate (4-6) Ondansetron HCl (Ondansetron 4 Mg/2 Ml Inj) 4 mg IV Q3H PRN PRN Reason: Nausea And Vomiting Sodium Chloride (Sodium Chloride 0.9% 10 Ml Flush Syringe) 10 ml IV BID GIA Last Admin: 06/23/21 02:38 Dose: 10 ml Sodium Chloride (Sodium Chloride 0.9% 10 Ml Flush Syringe) 10 ml IV PRN PRN PRN Reason: LINE FLUSH Exam - Constitutional Vitals: Temp Pulse Resp BP Pulse Ox 98.0 F 111 H 18 150/88 100 06/23/21 04:00 06/23/21 04:00 06/23/21 04:00 06/23/21 04:00 06/23/21 04:00 General appearance: Present: no acute distress, well-nourished, other - EENT Eyes: Present: PERRL ENT: hearing intact, clear oral mucosa, other (Pain mucous membranes) - Neck Neck: Present: supple, normal ROM - Respiratory Respiratory effort: normal Respiratory: bilateral: CTA - Cardiovascular Heart rate: 98 Rhythm: regular Heart Sounds: Present: S1 & S2. Absent: rub, click - Extremities Extremities: pulses symmetrical, No edema Peripheral Pulses: within normal limits - Abdominal General gastrointestinal: Present: soft, non-tender, non-distended, normal bowel sounds Female genitourinary: Present: normal - Rectal Rectal Exam: stool bloody - Integumentary Integumentary: Present: clear, warm, dry - Musculoskeletal Musculoskeletal: gait normal, strength equal bilaterally - Psychiatric Psychiatric: appropriate mood/affect, intact judgment & insight - Neurologic Neurologic: CNII-XII intact, moves all extremities - Allied Health Allied health notes reviewed: nursing, case management Results - Labs CBC & Chem 7: 06/22/21 13:59 06/22/21 13:59 Labs: Laboratory Last Values WBC 8.3 K/mm3 (4.5-11.0) 06/22/21 13:59 RBC 2.69 M/mm3 (3.65-5.03) L 06/22/21 13:59 Hgb 6.5 gm/dl (10.1-14.3) L 06/22/21 13:59 Hct 22.0 % (30.3-42.9) L 06/22/21 13:59 MCV 82 fl (79-97) 06/22/21 13:59 MCH 24 pg (28-32) L 06/22/21 13:59 MCHC 30 % (30-34) 06/22/21 13:59 RDW 22.8 % (13.2-15.2) H 06/22/21 13:59 Plt Count 698 K/mm3 (140-440) H 06/22/21 13:59 Lymph % (Auto) 23.2 % (13.4-35.0) 06/22/21 13:59 Riley % (Auto) 9.8 % (0.0-7.3) H 06/22/21 13:59 Eos % (Auto) 0.5 % (0.0-4.3) 06/22/21 13:59 Baso % (Auto) 0.7 % (0.0-1.8) 06/22/21 13:59 Lymph # (Auto) 1.9 K/mm3 (1.2-5.4) 06/22/21 13:59 Riley # (Auto) 0.8 K/mm3 (0.0-0.8) 06/22/21 13:59 Eos # (Auto) 0.0 K/mm3 (0.0-0.4) 06/22/21 13:59 Baso # (Auto) 0.1 K/mm3 (0.0-0.1) 06/22/21 13:59 Seg Neutrophils % 65.8 % (40.0-70.0) 06/22/21 13:59 Seg Neutrophils # 5.5 K/mm3 (1.8-7.7) 06/22/21 13:59 PT 36.0 Sec. (12.2-14.9) H 06/22/21 13:59 INR 3.08 (0.87-1.13) H 06/22/21 13:59 APTT 49.4 Sec. (24.2-36.6) H 06/22/21 13:59 Sodium 146 mmol/L (137-145) H 06/22/21 13:59 Potassium 3.5 mmol/L (3.6-5.0) L 06/22/21 13:59 Chloride 109.9 mmol/L (98-107) H 06/22/21 13:59 Carbon Dioxide 21 mmol/L (22-30) L 06/22/21 13:59 Anion Gap 19 mmol/L 06/22/21 13:59 BUN 8 mg/dL (7-17) 06/22/21 13:59 Creatinine 0.5 mg/dL (0.6-1.2) L 06/22/21 13:59 Estimated GFR > 60 ml/min 06/22/21 13:59 BUN/Creatinine Ratio 16 % 06/22/21 13:59 Glucose 107 mg/dL (65-100) H 06/22/21 13:59 Calcium 8.7 mg/dL (8.4-10.2) 06/22/21 13:59 Total Bilirubin 0.40 mg/dL (0.1-1.2) 06/22/21 13:59 Direct Bilirubin < 0.2 mg/dL (0-0.2) 06/22/21 13:59 Indirect Bilirubin 0.2 mg/dL 06/22/21 13:59 AST 14 units/L (5-40) 06/22/21 13:59 ALT 6 units/L (7-56) L 06/22/21 13:59 Alkaline Phosphatase 59 units/L (35-129) 06/22/21 13:59 NT-Pro-B Natriuret Pep 8914 pg/mL (0-900) H 06/22/21 13:59 Total Protein 5.8 g/dL (6.3-8.2) L 06/22/21 13:59 Albumin 3.1 g/dL (3.9-5) L 06/22/21 13:59 Albumin/Globulin Ratio 1.1 % 06/22/21 13:59 Lipase 14 units/L (13-60) 06/22/21 13:59 Blood Type O POSITIVE 06/22/21 13:59 Antibody Screen Negative 06/22/21 13:59 Antibody Identification Cancelled 06/22/21 13:59 Crossmatch See Detail 06/22/21 13:59 Short CBC 06/22/21 Range/Units 13:59 WBC 8.3 (4.5-11.0) K/mm3 Hgb 6.5 L (10.1-14.3) gm/dl Hct 22.0 L (30.3-42.9) % Plt Count 698 H (140-440) K/mm3 BMP 06/22/21 13:59 Sodium 146 H Potassium 3.5 L Chloride 109.9 H Carbon Dioxide 21 L BUN 8 Creatinine 0.5 L Glucose 107 H Calcium 8.7 Liver Function 06/22/21 Range/Units 13:59 Total Bilirubin 0.40 (0.1-1.2) mg/dL Direct Bilirubin < 0.2 (0-0.2) mg/dL AST 14 (5-40) units/L ALT 6 L (7-56) units/L Alkaline Phosphatase 59 (35-129) units/L Albumin 3.1 L (3.9-5) g/dL - Imaging and Cardiology Imaging and Cardiology: Duplex venous scan No sonographic evidence for DVT in either lower extremity Chest x-ray Elevated right hemidiaphragm with small right pleural effusion There is increased reticular opacities throughout the lung bases which may rep resent sequelae of interstitial lung disease Monk/IV: Voiding Method Incontinent Assessment and Plan Advance Directives: Yes (Full code) VTE prophylaxis?: Mechanical Plan of care discussed with patient/family: Yes - Patient Problems (1) Lower GI bleed Current Visit: Yes Status: Acute Plan to address problem: Transfuse 1 to 2 units of packed red blood cells GI consult (2) Chronic diarrhea Current Visit: Yes Status: Chronic Plan to address problem: Rule out C. difficile GI consult IV Flagyl for now (3) Personal history of DVT (deep vein thrombosis) Current Visit: Yes Status: Chronic Plan to address problem: Hold Xarelto for now Vascular surgery consulted (4) Pulmonary embolism Current Visit: Yes Status: Chronic Qualifiers: Acute cor pulmonale presence: without acute cor pulmonale Plan to address problem: On Xarelto Pulmonary embolism by history (5) GERD (gastroesophageal reflux disease) Current Visit: Yes Status: Chronic Qualifiers: Esophagitis presence: without esophagitis Qualified Code(s): K21.9 - Gastro-esophageal reflux disease without esophagitis Plan to address problem: On PPIs (6) COPD (chronic obstructive pulmonary disease) Current Visit: Yes Status: Chronic Plan to address problem: DuoNebs and as needed basis (7) Hyperlipidemia Current Visit: Yes Status: Chronic Qualifiers: Hyperlipidemia type: mixed hyperlipidemia Qualified Code(s): E78.2 - Mixed hyperlipidemia Plan to address problem: On statins (8) DVT prophylaxis Current Visit: Yes Status: Acute Plan to address problem: Given a GI bleed only SCDs for the time being (9) Advance care planning Current Visit: Yes Status: Acute Plan to address problem: Disease education conducted, care plan discussed, diagnosis discussed, prognosis discussed. Patient is full code. Patient acknowledges understanding and agreement with care plan. +30 minutes.
[2021-06-23] MEDS ORDERED: SODIUM CHLORIDE 0.9% 500 ML 500 ML IV NR (07:00)
[2021-06-23 07:47] LABS: Basophils % (Auto) 0.7 % (0.0-1.8); Eosinophils % (Auto) 0.3 % (0.0-4.3); Hematocrit 23.9 % (30.3-42.9); Hemoglobin 7.3 gm/dl (10.1-14.3); Lymphocytes # (Auto) 1.3 K/mm3 (1.2-5.4); Lymphocytes % (Auto) 20.4 % (13.4-35.0); Mean Corpuscular HGB Conc 31 % (30-34); Mean Corpuscular Volume 81 fl (79-97); Monocytes # (Auto) 0.8 K/mm3 (0.0-0.8); Monocytes % (Auto) 12.3 % (0.0-7.3); Platelet Count 517 K/mm3 (140-440); Red Blood Count 2.94 M/mm3 (3.65-5.03)
[2021-06-23 07:50] LABS: Red Cell Distribution Width 20.8 % (13.2-15.2)
[2021-06-23 08:10] LABS: Alanine Aminotransferase 5 units/L (7-56); Albumin 2.6 g/dL (3.9-5); Blood Urea Nitrogen 4 mg/dL (7-17); Calcium 8.6 mg/dL (8.4-10.2); Hemolysis Index 1
[2021-06-23 08:14] LABS: BUN/Creatinine Ratio 13
--- NOTE | 2021-06-23 10:26 | Electrocardiograph Report ---
[facility] Test Date: 2021-06-23 Test Time: 06:33:29 Pat Name: ANGUS ABBASI Department: Room: A451 1 Gender: F Clinical Research Tech: FLORINDA : 1955 Requested By: AURORA PITTMAN Order Number: [id number] Reading MD: Alejandro De Jesus Measurements Intervals [place] Rate: 97 P: 48 IA: 131 QRS: -53 QRSD: 66 T: 58 QT: 346 QTc: 439 Interpretive Statements Sinus rhythm Left anterior fascicular block Compared to ECG 02/24/2021 08:22:43 Left anterior fascicular block now present Possible ischemia no longer present Electronically Signed On 06-23-2021 10:26:27 EDT by Alejandro De Jesus
[2021-06-23] MEDS: PANTOPRAZOLE 40 MG INJ IV SCH ×2 (10:30→22:02)
--- NOTE | 2021-06-23 15:48 | Progress Note ---
Assessment and Plan Assessment and plan: #Lower GI bleed Hemoglobin 6.5 on presentation. Currently 7.3 Transfused 1 unit packed RBC on admission. Transfusing second unit today. Trend H&H daily. Starting IV pantoprazole 40 mg twice daily. Starting clear liquid diet. Gastroenterology consulted; pending recs #Acute hypoxic respiratory failure - etiology: Possible heart failure - baseline oxygen requirements: Room air - supplemental oxygen: 2 L nasal cannula - Continue protocol: continue pulse oximetry, wean oxygen as tolerated, ordered incentive spirometry and educated patient on how to use it and its importance. - Walk test: Unable to perform given patient is bedbound - continue to monitor #Possible heart failure Pro BNP 8914 Ordering TTE to evaluate EF. Starting IV Lasix 20 mg twice daily for volume control and to improve respiratory status. We will consider consulting cardiology if patient is found to have heart failure. #Chronic diarrhea C. difficile PCR ordered. Low clinical suspicion for infectious etiology as diarrhea has been going on for a minimum of 3 months. Gastroenterology consulted; pending recs Continue IV Flagyl 500 mg every 8 hours #Hypokalemia Potassium 3.0 Repleted. Continue to monitor with BMP. #Elevated blood pressure Holding initiation of antihypertensives to see if blood pressure improves with IV diuresis. If still uncontrolled, will initiate blood pressure medications tomorrow. - SBP goal <160 and DBP goal <90 while inpatient - continue to monitor #Hypernatremia Sodium 148 Continue to monitor with daily BMP. #History of pulmonary embolism #History of DVT Currently holding home Xarelto 20 mg daily in the setting of lower GI bleed Given patient's lower GI bleed, the need for anticoagulation needs to be discussed. #GERD Holding home PPI. Can restart prior to discharge. #Chronic COPDstable Continue DuoNebs and albuterol as needed #Hyperlipidemia Pending lipid panel Starting atorvastatin 40 mg daily. Will discontinue if lipid panel was unremarkable. The high probability of a clinically significant, sudden or life threatening deterioration of the [gastric] system(s) required my full and direct attention, intervention and personal management. The aggregate critical care time was [60] minutes. This time is in addition to time spent performing reported procedures but includes the following: [x] Data Review and interpretation [x] Patient assessment and monitoring of vital signs [x] Documentation [x] Medication orders and management Disposition Plan: Continue medical management Total Time Spent with Patient (Minutes): 45 minutes History Interval history: No acute events overnight. Hospitalist Physical - Constitutional Vitals: Temp Pulse Resp BP Pulse Ox 98.1 F 95 H 18 128/65 93 06/23/21 11:23 06/23/21 11:23 06/23/21 04:00 06/23/21 11:23 06/23/21 11:23 General appearance: Present: no acute distress, well-nourished, other (Bedbound) - EENT Eyes: Present: PERRL, EOM intact ENT: hearing intact, clear oral mucosa, dentition normal - Neck Neck: Present: supple, normal ROM - Respiratory Respiratory effort: normal Respiratory: bilateral: diminished (2 L nasal cannula) - Cardiovascular Rhythm: regular Heart Sounds: Present: S1 & S2 - Extremities Extremities: no ischemia, pulses intact, pulses symmetrical, normal temperature, normal color Extremity abnormal: edema (Trace edema bilateral lower extremities) Peripheral Pulses: within normal limits - Abdominal General gastrointestinal: soft, non-tender, non-distended, normal bowel sounds - Integumentary Integumentary: Present: clear, warm, dry - Psychiatric Psychiatric: appropriate mood/affect, intact judgment & insight, memory intact, cooperative - Neurologic Neurologic: CNII-XII intact - Allied Health Allied health notes reviewed: nursing Results - Labs CBC & Chem 7: 06/23/21 07:31 06/23/21 07:31 Labs: Laboratory Last Values WBC 6.1 K/mm3 (4.5-11.0) 06/23/21 07:31 RBC 2.94 M/mm3 (3.65-5.03) L 06/23/21 07:31 Hgb 7.3 gm/dl (10.1-14.3) L 06/23/21 07:31 Hct 23.9 % (30.3-42.9) L 06/23/21 07:31 MCV 81 fl (79-97) 06/23/21 07:31 MCH 25 pg (28-32) L 06/23/21 07:31 MCHC 31 % (30-34) 06/23/21 07:31 RDW 20.8 % (13.2-15.2) H 06/23/21 07:31 Plt Count 517 K/mm3 (140-440) H 06/23/21 07:31 Lymph % (Auto) 20.4 % (13.4-35.0) 06/23/21 07:31 [place]lin % (Auto) 12.3 % (0.0-7.3) H 06/23/21 07:31 Eos % (Auto) 0.3 % (0.0-4.3) 06/23/21 07:31 Baso % (Auto) 0.7 % (0.0-1.8) 06/23/21 07:31 Lymph # (Auto) 1.3 K/mm3 (1.2-5.4) 06/23/21 07:31 [place] # (Auto) 0.8 K/mm3 (0.0-0.8) 06/23/21 07:31 Eos # (Auto) 0.0 K/mm3 (0.0-0.4) 06/23/21 07:31 Baso # (Auto) 0.0 K/mm3 (0.0-0.1) 06/23/21 07:31 Seg Neutrophils % 66.3 % (40.0-70.0) 06/23/21 07:31 Seg Neutrophils # 4.1 K/mm3 (1.8-7.7) 06/23/21 07:31 PT 36.0 Sec. (12.2-14.9) H 06/22/21 13:59 INR 3.08 (0.87-1.13) H 06/22/21 13:59 APTT 49.4 Sec. (24.2-36.6) H 06/22/21 13:59 Sodium 148 mmol/L (137-145) H 06/23/21 07:31 Potassium 3.0 mmol/L (3.6-5.0) L 06/23/21 07:31 Chloride 110.9 mmol/L (98-107) H 06/23/21 07:31 Carbon Dioxide 25 mmol/L (22-30) 06/23/21 07:31 Anion Gap 15 mmol/L 06/23/21 07:31 BUN 4 mg/dL (7-17) L 06/23/21 07:31 Creatinine 0.3 mg/dL (0.6-1.2) L 06/23/21 07:31 Estimated GFR > 60 ml/min 06/23/21 07:31 BUN/Creatinine Ratio 13 % 06/23/21 07:31 Glucose 79 mg/dL (65-100) 06/23/21 07:31 Calcium 8.6 mg/dL (8.4-10.2) 06/23/21 07:31 Total Bilirubin 0.40 mg/dL (0.1-1.2) 06/23/21 07:31 Direct Bilirubin < 0.2 mg/dL (0-0.2) 06/22/21 13:59 Indirect Bilirubin 0.2 mg/dL 06/22/21 13:59 AST 12 units/L (5-40) 06/23/21 07:31 ALT 5 units/L (7-56) L 06/23/21 07:31 Alkaline Phosphatase 50 units/L (35-129) 06/23/21 07:31 NT-Pro-B Natriuret Pep 8914 pg/mL (0-900) H 06/22/21 13:59 Total Protein 4.9 g/dL (6.3-8.2) L 06/23/21 07:31 Albumin 2.6 g/dL (3.9-5) L 06/23/21 07:31 Albumin/Globulin Ratio 1.1 % 06/23/21 07:31 Lipase 14 units/L (13-60) 06/22/21 13:59 Blood Type O POSITIVE 06/22/21 13:59 Antibody Screen Negative 06/22/21 13:59 Antibody Identification Cancelled 06/22/21 13:59 Crossmatch See Detail 06/22/21 13:59 Monk/IV: Voiding Method Incontinent Active Medications - Current Medications Current Medications: Generic Name Dose Route Start Last Admin Trade Name Freq PRN Reason Stop Dose Admin Acetaminophen 650 mg 06/22/21 17:00 Acetaminophen 325 Mg Tab PO Q4H PRN Pain MILD(1-3)/Fever >100.5/SALAZAR Albuterol 2.5 mg 06/22/21 17:00 Albuterol 2.5 Mg/3 Ml Nebu IH Q3HRT PRN Shortness Of Breath Hydromorphone HCl 0.5 mg 06/22/21 17:00 Hydromorphone 1 Mg/1 Ml Inj IV Q3H PRN Pain , Severe (7-10) Sodium Chloride 500 mls @ 0 mls/hr 06/23/21 07:00 Nacl 0.9% 500 Ml IV 05/03/22 20:00 ONCE NR As Directed Morphine Sulfate 2 mg 06/22/21 17:00 Morphine 2 Mg/1 Ml Inj IV Q4H PRN Pain, Moderate (4-6) Ondansetron HCl 4 mg 06/22/21 17:00 Ondansetron 4 Mg/2 Ml Inj IV Q3H PRN Nausea And Vomiting Pantoprazole Sodium 40 mg 06/23/21 10:00 06/23/21 10:30 Pantoprazole 40 Mg Inj IV 40 mg BID GIA Administration Sodium Chloride 10 ml 06/22/21 22:00 06/23/21 02:38 Sodium Chloride 0.9% 10 Ml Flush Syringe IV 10 ml BID GIA Administration Sodium Chloride 10 ml 06/22/21 17:00 Sodium Chloride 0.9% 10 Ml Flush Syringe IV PRN PRN LINE FLUSH
--- NOTE | 2021-06-23 16:00 | Gastroenterology Consultation ---
History of Present Illness - Reason for Consult Consult date: 06/23/21 bloody diarrhea Requesting physician: PRANAV SALINAS - History of Present Illness The ptabarber is a 67 yo aaf who presents with worsening diarrhea and hematochezia. Patient recently seen by Dr Gupta in GI clinic. she has had diarrhea for ~6+ months, with hematochezia intermittently. she had colonoscopy by Dr Peng in January, poor prep, extent to descending colon with findings of inflammatory colitis bx's showing crypt architectural changes. she was in the hospital in march and had diarrhea and positive c diff at that time. she was seen by Dr Gupta in clinic last week and prescribed cipro/flagyl, reports diarrhea with hematochezia worsened afterwards. no significant abd pain or n/v. she has had blood mixed with stool since admission. Past History Past Medical History: DVT Past Surgical History: Other (IVC filter) Social history: no significant social history Family history: no significant family history Medications and Allergies Allergies Allergy/AdvReac Type Severity Reaction Status Date / Time lisinopril Allergy Severe Anaphylaxis Verified 06/23/21 13:53 Home Medications Medication Instructions Recorded Confirmed Last Taken Type Ciprofloxacin HCl 500 mg PO Q12H 06/23/21 06/23/21 06/20/21 History Diphenoxylate/Atropine [Lomotil] 1 tab PO TID PRN 06/23/21 06/23/21 06/20/21 History Rivaroxaban [Xarelto] 20 mg PO QDAY 06/23/21 06/23/21 06/20/21 History metroNIDAZOLE [Flagyl] 500 mg PO Q8HR 06/23/21 06/23/21 06/20/21 History Active Meds: Active Medications Acetaminophen (Acetaminophen 325 Mg Tab) 650 mg PO Q4H PRN PRN Reason: Pain MILD(1-3)/Fever >100.5/SALAZAR Albuterol (Albuterol 2.5 Mg/3 Ml Nebu) 2.5 mg IH Q3HRT PRN PRN Reason: Shortness Of Breath Atorvastatin Calcium (Atorvastatin 40 Mg Tab) 40 mg PO QHS GIA Furosemide (Furosemide 20 Mg/2 Ml Inj) 20 mg IV 0600,1800 GIA Hydromorphone HCl (Hydromorphone 1 Mg/1 Ml Inj) 0.5 mg IV Q3H PRN PRN Reason: Pain , Severe (7-10) Sodium Chloride (Nacl 0.9% 500 Ml) 500 mls @ 0 mls/hr IV ONCE NR Stop: 06/23/21 20:00 Potassium Chloride (Kcl 10meq/100ml) 10 meq in 100 mls @ 100 mls/hr IV Q1H [facility] Stop: 06/23/21 19:59 Morphine Sulfate (Morphine 2 Mg/1 Ml Inj) 2 mg IV Q4H PRN PRN Reason: Pain, Moderate (4-6) Ondansetron HCl (Ondansetron 4 Mg/2 Ml Inj) 4 mg IV Q3H PRN PRN Reason: Nausea And Vomiting Pantoprazole Sodium (Pantoprazole 40 Mg Inj) 40 mg IV BID [facility] Last Admin: 06/23/21 10:30 Dose: 40 mg Potassium Chloride (Potassium Chloride Er 20 Meq Tab) 40 meq PO ONCE ONE Stop: 06/23/21 15:56 Sodium Chloride (Sodium Chloride 0.9% 10 Ml Flush Syringe) 10 ml IV BID [facility] Last Admin: 06/23/21 02:38 Dose: 10 ml Sodium Chloride (Sodium Chloride 0.9% 10 Ml Flush Syringe) 10 ml IV PRN PRN PRN Reason: LINE FLUSH Reviewed/updated patient's home and current medications Review of Systems - Review of Systems All systems: negative (per HPI) Exam - Constitutional Vital Signs: Temp Pulse Resp BP Pulse Ox 98.1 F 95 H 18 128/65 93 06/23/21 11:23 06/23/21 11:23 06/23/21 04:00 06/23/21 11:23 06/23/21 11:23 General appearance: no acute distress - Respiratory Respiratory effort: normal Respiratory: bilateral: CTA - Cardiovascular Rhythm: regular Heart Sounds: Present: S1 & S2 - Gastrointestinal General gastrointestinal: Present: soft, non-tender Rectal Exam: stool bloody - Neurologic Neurological: alert and oriented x3 - Labs CBC & Chem 7: 06/23/21 07:31 06/23/21 07:31 Lab Results: Laboratory Results - last 24 hr 06/22/21 06/22/21 06/23/21 13:59 13:59 07:31 WBC 6.1 RBC 2.94 L Hgb 7.3 L Hct 23.9 L MCV 81 MCH 25 L MCHC 31 RDW 20.8 H Plt Count 517 H Lymph % (Auto) 20.4 [place] % (Auto) 12.3 H Eos % (Auto) 0.3 Baso % (Auto) 0.7 Lymph # (Auto) 1.3 [place] # (Auto) 0.8 Eos # (Auto) 0.0 Baso # (Auto) 0.0 Seg Neutrophils % 66.3 Seg Neutrophils # 4.1 Sodium Potassium Chloride Carbon Dioxide Anion Gap BUN Creatinine Estimated GFR BUN/Creatinine Ratio Glucose Calcium Total Bilirubin AST ALT Alkaline Phosphatase NT-Pro-B Natriuret Pep 8914 H Total Protein Albumin Albumin/Globulin Ratio Blood Type O POSITIVE Antibody Screen Negative Antibody Identification Cancelled Crossmatch See Detail 06/23/21 07:31 WBC RBC Hgb Hct MCV MCH MCHC RDW Plt Count Lymph % (Auto) [place] % (Auto) Eos % (Auto) Baso % (Auto) Lymph # (Auto) [place] # (Auto) Eos # (Auto) Baso # (Auto) Seg Neutrophils % Seg Neutrophils # Sodium 148 H Potassium 3.0 L Chloride 110.9 H Carbon Dioxide 25 Anion Gap 15 BUN 4 L Creatinine 0.3 L Estimated GFR > 60 BUN/Creatinine Ratio 13 Glucose 79 Calcium 8.6 Total Bilirubin 0.40 AST 12 ALT 5 L Alkaline Phosphatase 50 NT-Pro-B Natriuret Pep Total Protein 4.9 L Albumin 2.6 L Albumin/Globulin Ratio 1.1 Blood Type Antibody Screen Antibody Identification Crossmatch Assessment and Plan Bloody diarrhea - intermittent/chronic episodes, supratherapeutic INR, on eliquis. h/o inflammatory colitis, suspect infectious (? c diff), IBD, etc. check stool studies/r/o c diff. she had c diff in march and given presentation, not unreasonable to treat empirically with po vanc as well for jaz e being. consider ct scan based on progress
[2021-06-23] MEDS: POTASSIUM CHLORIDE ER 20 MEQ TAB PO ONE ×2 (19:47→20:24)
[2021-06-23] MEDS: FUROSEMIDE 20 MG/2 ML INJ IV SCH (19:47)
[2021-06-23] MEDS ORDERED: POTASSIUM CHLORIDE ER 20 MEQ TAB PO ONE (20:00)
[2021-06-23] MEDS: POTASSIUM CHLORIDE 10 MEQ 10 MEQ/100 ML BAG IV SCH (22:07)
[2021-06-23 23:50] LABS: Hematocrit 29.7 % (30.3-42.9); Hemoglobin 9.1 gm/dl (10.1-14.3)
[2021-06-23 23:53] LABS: Blood Urea Nitrogen 5 mg/dL (7-17); Hemolysis Index 11
[2021-06-24 00:02] LABS: BUN/Creatinine Ratio 10
[2021-06-24] MEDS ORDERED: POTASSIUM CHLORIDE ER 20 MEQ TAB PO ONE (02:23)
[2021-06-24] MEDS: POTASSIUM CHLORIDE 10 MEQ 10 MEQ/100 ML BAG IV SCH ×3 (02:28→02:31)
[2021-06-24 05:14] LABS: Basophils % (Auto) 0.6 % (0.0-1.8); Eosinophils # (Auto) 0.1 K/mm3 (0.0-0.4); Eosinophils % (Auto) 1.7 % (0.0-4.3); Hematocrit 26.3 % (30.3-42.9); Hemoglobin 8.2 gm/dl (10.1-14.3); Lymphocytes # (Auto) 1.4 K/mm3 (1.2-5.4); Mean Corpuscular HGB Conc 31 % (30-34); Mean Corpuscular Volume 82 fl (79-97); Monocytes # (Auto) 0.9 K/mm3 (0.0-0.8); Monocytes % (Auto) 15.5 % (0.0-7.3); Platelet Count 506 K/mm3 (140-440); Red Blood Count 3.23 M/mm3 (3.65-5.03); Red Cell Distribution Width 19.7 % (13.2-15.2)
[2021-06-24 05:36] LABS: Blood Urea Nitrogen 5 mg/dL (7-17); Calcium 8.1 mg/dL (8.4-10.2); Hemolysis Index 0
[2021-06-24 06:11] LABS: BUN/Creatinine Ratio 10
[2021-06-24] MEDS: FUROSEMIDE 20 MG/2 ML INJ IV SCH (06:12)
--- NOTE | 2021-06-24 09:17 | Cat Scan Report ---
CT ABDOMEN AND PELVIS WITH CONTRAST INDICATION / CLINICAL INFORMATION: Evaluate colitis 100 ML OMNI 3000 . TECHNIQUE: Axial CT images were obtained through the abdomen and pelvis after 100 cc of Omnipaque 300 IV contras t. Sagittal and coronal reformatted images. All CT scans at this location are performed using CT dose reduction for ALARA by means of automated exposure control. COMPARISON: 04/03/2021 FINDINGS: LOWER CHEST: Small bilateral pleural effusions and mild bibasilar atelectatic changes have developed. There is subtle groundglass infiltration in both infrahilar regions. Heart size is within normal torres its although a small pericardial effusion has developed. LIVER: No significant abnormality. GALLBLADDER: No significant abnormality. BILE DUCTS: No significant abnormality. PANCREAS: No significant abnormality. SPLEEN: No significant abnormality. ADRENALS: No significant abnormality. RIGHT KIDNEY and URETER: Few scattered renal calyceal stones measuring up to 4 mm. LEFT KIDNEY and URETER: Solitary 3 mm calyceal stone near mid pole. There are 2 cysts near mid pole m easuring up to 1.5 cm. STOMACH and SMALL BOWEL: No significant abnormality. COLON: There is moderate circumferential thickening and mild inflammatory fat stranding surrounding t he left hemicolon which appears unchanged or slightly worse when comparing to the previous exam. Ther e is no evidence for obstruction, pneumatosis, mass or diverticulosis. APPENDIX: No significant abnormality. PERITONEUM: No free fluid. No free air. No fluid collection. LYMPH NODES: No significant adenopathy. AORTA and ARTERIES: Mild atherosclerotic calcification without acute abnormality. IVC and VEINS: No significant abnormality. Infrarenal IVC filter is noted. URINARY BLADDER: No significant abnormality. REPRODUCTIVE ORGANS: No significant abnormality. ADDITIONAL FINDINGS: None. SKELETAL SYSTEM: No significant abnormality. IMPRESSION: Moderate continuous colitis affecting the left hemicolon as described. This appears unchanged or sli ghtly worse when comparing to 04/03/2021. Ulcerative colitis could be considered. Bilateral nonobstructing nephrolithiasis. Left renal cysts. New small bilateral pleural effusions and pericardial effusion. Mild groundglass infiltration is identified in both infrahilar regions which could represent congesti ve changes or an inflammatory process. Signer Name: Christos Woodward Jr, MD Signed: 06/24/2021 9:12 AM Workstation Name: [id number]
[2021-06-24] MEDS: VANCOMYCIN 250 MG/10 ML ORAL LIQD PO SCH ×3 (09:32→18:15)
[2021-06-24] MEDS: PANTOPRAZOLE 40 MG INJ IV SCH ×2 (10:33→22:32)
[2021-06-24] MEDS ORDERED: FUROSEMIDE 20 MG/2 ML INJ IV SCH (10:59)
--- NOTE | 2021-06-24 11:21 | Gastroenterology Progress Note ---
Assessment and Plan 1. Hematochezia 2. Diarrhea 3. colitis -ct scan with signs of left sided colitis. ? infectious (? c diff) vs inflammatory bowel disease (possible UC). had flex sig january of last year per hpi. recommend empiric c diff treatment with po vanc, okay to advanced diet from gi stand point to solids. f/u stool studies. Subjective Date of service: 06/24/21 Principal diagnosis: bloody diarrhea Interval history: reports episodes of hematochezia this morning (per pt, not witnessed by nursing staff). reports diarrhea improved but she believes this is due to her not eating solids. denies abd pain. Objective - Constitutional Vitals: Temp Pulse Resp BP Pulse Ox 98.4 F 97 H 18 115/66 93 06/24/21 07:45 06/24/21 07:45 06/24/21 07:45 06/24/21 07:45 06/24/21 07:45 General appearance: no acute distress - Respiratory Respiratory effort: normal Respiratory: bilateral: CTA - Cardiovascular Heart Sounds: Present: S1 & S2 - Gastrointestinal General gastrointestinal: Present: soft, non-tender - Labs CBC & Chem 7: 06/24/21 04:47 06/24/21 04:47 Labs: Laboratory Results - last 24 hr 06/22/21 06/23/21 06/23/21 13:59 22:37 22:37 WBC RBC Hgb 9.1 L Hct 29.7 L MCV MCH MCHC RDW Plt Count Lymph % (Auto) [place] % (Auto) Eos % (Auto) Baso % (Auto) Lymph # (Auto) [place] # (Auto) Eos # (Auto) Baso # (Auto) Seg Neutrophils % Seg Neutrophils # Sodium 144 Potassium 3.4 L Chloride 107.5 H Carbon Dioxide 23 Anion Gap 17 BUN 5 L Creatinine 0.5 L D Estimated GFR > 60 BUN/Creatinine Ratio 10 Glucose 108 H Calcium 8.0 L Blood Type O POSITIVE Antibody Screen Negative Antibody Identification Cancelled Crossmatch See Detail 06/24/21 06/24/21 04:47 04:47 WBC 5.8 RBC 3.23 L Hgb 8.2 L Hct 26.3 L MCV 82 MCH 25 L MCHC 31 RDW 19.7 H Plt Count 506 H Lymph % (Auto) 24.0 [place] % (Auto) 15.5 H Eos % (Auto) 1.7 Baso % (Auto) 0.6 Lymph # (Auto) 1.4 [place] # (Auto) 0.9 H Eos # (Auto) 0.1 Baso # (Auto) 0.0 Seg Neutrophils % 58.2 Seg Neutrophils # 3.4 Sodium 144 Potassium 3.7 Chloride 108.2 H Carbon Dioxide 25 Anion Gap 15 BUN 5 L Creatinine 0.5 L Estimated GFR > 60 BUN/Creatinine Ratio 10 Glucose 101 H Calcium 8.1 L Blood Type Antibody Screen Antibody Identification Crossmatch
[2021-06-24] MEDS ORDERED: FUROSEMIDE 20 MG/2 ML INJ IV ONE (12:00)
--- NOTE | 2021-06-24 14:04 | Progress Note ---
Assessment and Plan Assessment and plan: #Lower GI bleed #Hematochezia #Possible ulcerative colitis versus Crohn's Hemoglobin 6.5 --> 7.3--> 8.2 Status posttransfusion 2 units packed RBC trend H&H daily. Discontinuing IV pantoprazole 40 mg twice daily. Transitioning from clear liquid diet to regular diet Gastroenterology consulted; appreciate recs CT abdomen/pelvis (per GI recommendation) revealing relatively unchanged colitis from March 2021. Continue to monitor #Acute hypoxic respiratory failure - etiology: Possible heart failure - baseline oxygen requirements: Room air - supplemental oxygen: 2 L nasal cannula - Continue protocol: continue pulse oximetry, wean oxygen as tolerated, ordered incentive spirometry and educated patient on how to use it and its importance, IV Lasix 40 mg twice daily - Walk test: Unable to perform given patient is bedbound - continue to monitor #Possible heart failureruled out #Volume overload Pro BNP 8914 Ordering TTE to evaluate EF. Continue IV Lasix 40 mg twice daily for volume control and to improve res piratory status. We will consider consulting cardiology if patient is found to have heart failure. #Chronic diarrhea #Possible C. difficile infection C. difficile PCR ordered. Prior hospital records revealing high likelihood of C. difficile infection. Gastroenterology consulted; pending recs Continue IV Flagyl 500 mg every 8 hours and starting p.o. vancomycin to 50 mg 4 times daily for total of 7 days (completes on 06/30/2021) #Hypokalemiaresolved Potassium 3.0 Repleted. Continue to monitor with BMP. #Elevated blood pressure Holding initiation of antihypertensives to see if blood pressure improves with IV diuresis. If still uncontrolled, will initiate blood pressure medications tomorrow. - SBP goal <160 and DBP goal <90 while inpatient - continue to monitor #Hypernatremiaresolved Sodium 148 Continue to monitor with daily BMP. #History of pulmonary embolism #History of DVT Currently holding home Xarelto 20 mg daily in the setting of lower GI bleed Given patient's lower GI bleed, the need for anticoagulation needs to be discussed. #GERD Holding home PPI. Can restart prior to discharge. #Chronic COPDstable Continue DuoNebs and albuterol as needed #Hyperlipidemia Pending lipid panel Starting atorvastatin 40 mg daily. Will discontinue if lipid panel was unremarkable. #Hypocalcemia Calcium 8.1 Repleted. Continue to monitor. #Advanced care planning -Disease education conducted, care plan discussed, diagnoses discussed, prognosis discussed, and patient acknowledges understanding with care plan -Time: +30 min Disposition Plan: Continue medical management Total Time Spent with Patient (Minutes): 45 minutes History Interval history: No acute events overnight. Hospitalist Physical - Constitutional Vitals: Temp Pulse Resp BP Pulse Ox 98.4 F 97 H 18 115/66 97 06/24/21 07:45 06/24/21 11:00 06/24/21 07:45 06/24/21 07:45 06/24/21 11:00 General appearance: Present: no acute distress, well-nourished, other (Bedbound) - EENT Eyes: Present: PERRL, EOM intact ENT: hearing intact, clear oral mucosa, dentition normal - Neck Neck: Present: supple, normal ROM - Respiratory Respiratory effort: normal Respiratory: bilateral: diminished (On 2 L nasal cannula) - Cardiovascular Rhythm: regular Heart Sounds: Present: S1 & S2 - Extremities Extremities: no ischemia, pulses intact, pulses symmetrical, normal temperature, normal color, Full ROM Extremity abnormal: edema (1+ pitting edema bilateral lower extremities to knees) Peripheral Pulses: within normal limits - Abdominal General gastrointestinal: soft, non-tender, non-distended, normal bowel sounds - Integumentary Integumentary: Present: clear, warm, dry - Psychiatric Psychiatric: appropriate mood/affect, intact judgment & insight, memory intact, cooperative - Neurologic Neurologic: CNII-XII intact - Allied Health Allied health notes reviewed: nursing Results - Labs CBC & Chem 7: 06/24/21 04:47 06/24/21 04:47 Labs: Laboratory Last Values WBC 5.8 K/mm3 (4.5-11.0) 06/24/21 04:47 RBC 3.23 M/mm3 (3.65-5.03) L 06/24/21 04:47 Hgb 8.2 gm/dl (10.1-14.3) L 06/24/21 04:47 Hct 26.3 % (30.3-42.9) L 06/24/21 04:47 MCV 82 fl (79-97) 06/24/21 04:47 MCH 25 pg (28-32) L 06/24/21 04:47 MCHC 31 % (30-34) 06/24/21 04:47 RDW 19.7 % (13.2-15.2) H 06/24/21 04:47 Plt Count 506 K/mm3 (140-440) H 06/24/21 04:47 Lymph % (Auto) 24.0 % (13.4-35.0) 06/24/21 04:47 [place] % (Auto) 15.5 % (0.0-7.3) H 06/24/21 04:47 Eos % (Auto) 1.7 % (0.0-4.3) 06/24/21 04:47 Baso % (Auto) 0.6 % (0.0-1.8) 06/24/21 04:47 Lymph # (Auto) 1.4 K/mm3 (1.2-5.4) 06/24/21 04:47 [place] # (Auto) 0.9 K/mm3 (0.0-0.8) H 06/24/21 04:47 Eos # (Auto) 0.1 K/mm3 (0.0-0.4) 06/24/21 04:47 Baso # (Auto) 0.0 K/mm3 (0.0-0.1) 06/24/21 04:47 Seg Neutrophils % 58.2 % (40.0-70.0) 06/24/21 04:47 Seg Neutrophils # 3.4 K/mm3 (1.8-7.7) 06/24/21 04:47 PT 36.0 Sec. (12.2-14.9) H 06/22/21 13:59 INR 3.08 (0.87-1.13) H 06/22/21 13:59 APTT 49.4 Sec. (24.2-36.6) H 06/22/21 13:59 Sodium 144 mmol/L (137-145) 06/24/21 04:47 Potassium 3.7 mmol/L (3.6-5.0) 06/24/21 04:47 Chloride 108.2 mmol/L (98-107) H 06/24/21 04:47 Carbon Dioxide 25 mmol/L (22-30) 06/24/21 04:47 Anion Gap 15 mmol/L 06/24/21 04:47 BUN 5 mg/dL (7-17) L 06/24/21 04:47 Creatinine 0.5 mg/dL (0.6-1.2) L 06/24/21 04:47 Estimated GFR > 60 ml/min 06/24/21 04:47 BUN/Creatinine Ratio 10 % 06/24/21 04:47 Glucose 101 mg/dL (65-100) H 06/24/21 04:47 Calcium 8.1 mg/dL (8.4-10.2) L 06/24/21 04:47 Total Bilirubin 0.40 mg/dL (0.1-1.2) 06/23/21 07:31 Direct Bilirubin < 0.2 mg/dL (0-0.2) 06/22/21 13:59 Indirect Bilirubin 0.2 mg/dL 06/22/21 13:59 AST 12 units/L (5-40) 06/23/21 07:31 ALT 5 units/L (7-56) L 06/23/21 07:31 Alkaline Phosphatase 50 units/L (35-129) 06/23/21 07:31 NT-Pro-B Natriuret Pep 8914 pg/mL (0-900) H 06/22/21 13:59 Total Protein 4.9 g/dL (6.3-8.2) L 06/23/21 07:31 Albumin 2.6 g/dL (3.9-5) L 06/23/21 07:31 Albumin/Globulin Ratio 1.1 % 06/23/21 07:31 Lipase 14 units/L (13-60) 06/22/21 13:59 Blood Type O POSITIVE 06/22/21 13:59 Antibody Screen Negative 06/22/21 13:59 Antibody Identification Cancelled 06/22/21 13:59 Crossmatch See Detail 06/22/21 13:59 Monk/IV: Voiding Method External Female Catheter Active Medications - Current Medications Current Medications: Generic Name Dose Route Start Last Admin Trade Name Freq PRN Reason Stop Dose Admin Acetaminophen 650 mg 06/22/21 17:00 Acetaminophen 325 Mg Tab PO Q4H PRN Pain MILD(1-3)/Fever >100.5/SALAZAR Albuterol 2.5 mg 06/22/21 17:00 Albuterol 2.5 Mg/3 Ml Nebu IH Q3HRT PRN Shortness Of Breath Atorvastatin Calcium 40 mg 06/23/21 22:00 06/23/21 22:02 Atorvastatin 40 Mg Tab PO 40 mg QHS GIA Administration Furosemide 40 mg 06/24/21 18:00 Furosemide 40 Mg/4 Ml Inj IV 0600,1800 [facility] Hydromorphone HCl 0.5 mg 06/22/21 17:00 Hydromorphone 1 Mg/1 Ml Inj IV Q3H PRN Pain , Severe (7-10) Morphine Sulfate 2 mg 06/22/21 17:00 Morphine 2 Mg/1 Ml Inj IV Q4H PRN Pain, Moderate (4-6) Ondansetron HCl 4 mg 06/22/21 17:00 Ondansetron 4 Mg/2 Ml Inj IV Q3H PRN Nausea And Vomiting Pantoprazole Sodium 40 mg 06/23/21 10:00 06/24/21 10:33 Pantoprazole 40 Mg Inj IV 40 mg BID GIA Administration Sodium Chloride 10 ml 06/22/21 22:00 06/24/21 13:33 Sodium Chloride 0.9% 10 Ml Flush Syringe IV 10 ml BID GIA Administration Sodium Chloride 10 ml 06/22/21 17:00 Sodium Chloride 0.9% 10 Ml Flush Syringe IV PRN PRN LINE FLUSH Vancomycin HCl 250 mg 06/24/21 08:00 06/24/21 13:33 Vancomycin 250 Mg/10 Ml Oral Liqd PO 07/01/21 07:59 250 mg Q6HR GIA Administration Protocol
[2021-06-24] MEDS: FUROSEMIDE 40 MG/4 ML INJ IV SCH (18:15)
[2021-06-24] MEDS: CALCIUM CARBONATE 1250 MG TAB PO SCH (22:32)
[2021-06-24] MEDS ORDERED: DIPHENOXYLATE/ATROPINE TAB PO ONE (22:44)
[2021-06-25] MEDS: VANCOMYCIN 250 MG/10 ML ORAL LIQD PO SCH ×5 (00:45→23:52)
[2021-06-25] MEDS: PE/MO/PET,WH 10 APPLIC/28 GM TUBE PR PRN ×3 (02:28→23:51)
[2021-06-25 06:36] LABS: Blood Urea Nitrogen 5 mg/dL (7-17); Calcium 8.6 mg/dL (8.4-10.2); Hemolysis Index 2
[2021-06-25 06:38] LABS: BUN/Creatinine Ratio 13
[2021-06-25] MEDS: FUROSEMIDE 40 MG/4 ML INJ IV SCH ×2 (07:30→17:46)
[2021-06-25] MEDS ORDERED: PANTOPRAZOLE 40 MG TAB PO SCH (07:30)
[2021-06-25] MEDS ORDERED: POTASSIUM CHLORIDE ER 20 MEQ TAB PO SCH (08:00)
--- NOTE | 2021-06-25 09:10 | Gastroenterology Progress Note ---
Assessment and Plan 1. Bloody diarrhea/colitis - hematochezia appears to have resolved, h/h stable, complete course of po vanc for empiric c diff treatment. likely high risk for continued hematochezia if anticoagulation is resumed until colitis has resolved. defer further AC management to primary (if strong indication, then can resume and monitor for 1-2 days while on AC). Subjective Date of service: 06/25/21 Principal diagnosis: bloody diarrhea Interval history: pt had diarrhea overnight after solid meal yesterday. states hematochezia has resolved. denies abd pain Objective - Constitutional Vitals: Temp Pulse Resp BP Pulse Ox 97.9 F 103 H 18 127/68 92 06/25/21 07:37 06/25/21 07:37 06/25/21 07:37 06/25/21 07:37 06/25/21 07:37 General appearance: no acute distress - Respiratory Respiratory effort: normal Respiratory: bilateral: CTA - Cardiovascular Rhythm: regular Heart Sounds: Present: S1 & S2 - Gastrointestinal General gastrointestinal: Present: soft, non-tender, non-distended - Labs CBC & Chem 7: 06/24/21 04:47 06/25/21 05:25 Labs: Laboratory Results - last 24 hr 06/25/21 05:25 Sodium 143 Potassium 3.3 L Chloride 105.5 Carbon Dioxide 27 Anion Gap 14 BUN 5 L Creatinine 0.4 L Estimated GFR > 60 BUN/Creatinine Ratio 13 Glucose 90 Calcium 8.6
[2021-06-25] MEDS: CALCIUM CARBONATE 1250 MG TAB PO SCH ×2 (10:23→21:11)
[2021-06-25] MEDS: DIPHENOXYLATE/ATROPINE TAB PO PRN ×4 (10:23→23:56)
--- NOTE | 2021-06-25 12:52 | Progress Note ---
Assessment and Plan Assessment and plan: #Lower GI bleedresolved #Hematocheziaresolved #Possible ulcerative colitis versus Crohn's Hemoglobin 6.5 --> 7.3--> 8.2 Status posttransfusion 2 units packed RBC trend H&H daily. Discontinuing IV pantoprazole 40 mg twice daily. Continue regular diet. Gastroenterology consulted; appreciate recs CT abdomen/pelvis (per GI recommendation) revealing relatively unchanged c olitis from March 2021. Continue to monitor #Acute hypoxic respiratory failureresolved - etiology: Possible heart failure - baseline oxygen requirements: Room air - supplemental oxygen: 2 L nasal cannula - Continue protocol: continue pulse oximetry, wean oxygen as tolerated, ordered incentive spirometry and educated patient on how to use it and its importance, IV Lasix 40 mg twice daily - Walk test: Unable to perform given patient is bedbound - continue to monitor #Possible heart failureruled out #Volume overloadimproving Pro BNP 8914 Ordering TTE to evaluate EF. Continue IV Lasix 40 mg twice daily for volume control and to improve respiratory status. We will consider consulting cardiology if patient is found to have heart fa ilure. #Chronic diarrhea #Possible C. difficile infection C. difficile PCR ordered. Prior hospital records revealing high likelihood of C. difficile infection. Gastroenterology consulted; appreciate recs Continue IV Flagyl 500 mg every 8 hours and continue p.o. vancomycin to 50 mg 4 times daily for total of 7 days (completes on 06/30/2021) #Hypokalemiaimproving Potassium 3.0--> 3.3 Repleted. Continue to monitor with BMP. #Elevated blood pressure Holding initiation of antihypertensives to see if blood pressure improves with IV diuresis. If still uncontrolled, will initiate blood pressure medications tomorrow. - SBP goal <160 and DBP goal <90 while inpatient - continue to monitor #Hypernatremiaresolved Sodium 148 Continue to monitor with daily BMP. #History of pulmonary embolism #History of DVT Currently holding home Xarelto 20 mg daily in the setting of lower GI bleed Initiating anticoagulation tomorrow and will monitor patient for 24 hours to ensure bleeding does not restart. #GERD Starting pantoprazole 40 mg daily #Chronic COPDstable Continue DuoNebs and albuterol as needed #Hyperlipidemia Pending lipid panel Continue atorvastatin 40 mg daily. Will discontinue if lipid panel was unremarkable. #Hypocalcemia Calcium 8.1 Repleted. Continue to monitor. #Advanced care planning -Disease education conducted, care plan discussed, diagnoses discussed, prognosis discussed, and patient acknowledges understanding with care plan -Time: +30 min Disposition Plan: Continue medical management Total Time Spent with Patient (Minutes): 45 minutes History Interval history: No acute events overnight. Hospitalist Physical - Constitutional Vitals: Temp Pulse Resp BP Pulse Ox 98.0 F 111 H 16 123/65 89 06/25/21 11:19 06/25/21 11:19 06/25/21 11:19 06/25/21 11:19 06/25/21 11:19 General appearance: Present: no acute distress, well-nourished, other (Bedbound) - EENT Eyes: Present: PERRL, EOM intact ENT: hearing intact, clear oral mucosa, dentition normal - Neck Neck: Present: supple, normal ROM - Respiratory Respiratory effort: normal Respiratory: bilateral: CTA - Cardiovascular Rhythm: regular Heart Sounds: Present: S1 & S2 - Extremities Extremities: no ischemia, pulses intact, pulses symmetrical, normal temperature, normal color Extremity abnormal: edema (1+ pitting edema bilateral lower extremities) Peripheral Pulses: within normal limits - Abdominal General gastrointestinal: soft, non-tender, non-distended, normal bowel sounds - Integumentary Integumentary: Present: clear, warm, dry - Psychiatric Psychiatric: appropriate mood/affect, intact judgment & insight, memory intact, cooperative - Neurologic Neurologic: CNII-XII intact, moves all extremities - Allied Health Allied health notes reviewed: nursing Results - Labs CBC & Chem 7: 06/24/21 04:47 06/25/21 05:25 Labs: Laboratory Last Values WBC 5.8 K/mm3 (4.5-11.0) 06/24/21 04:47 RBC 3.23 M/mm3 (3.65-5.03) L 06/24/21 04:47 Hgb 8.2 gm/dl (10.1-14.3) L 06/24/21 04:47 Hct 26.3 % (30.3-42.9) L 06/24/21 04:47 MCV 82 fl (79-97) 06/24/21 04:47 MCH 25 pg (28-32) L 06/24/21 04:47 MCHC 31 % (30-34) 06/24/21 04:47 RDW 19.7 % (13.2-15.2) H 06/24/21 04:47 Plt Count 506 K/mm3 (140-440) H 06/24/21 04:47 Lymph % (Auto) 24.0 % (13.4-35.0) 06/24/21 04:47 [place] % (Auto) 15.5 % (0.0-7.3) H 06/24/21 04:47 Eos % (Auto) 1.7 % (0.0-4.3) 06/24/21 04:47 Baso % (Auto) 0.6 % (0.0-1.8) 06/24/21 04:47 Lymph # (Auto) 1.4 K/mm3 (1.2-5.4) 06/24/21 04:47 [place] # (Auto) 0.9 K/mm3 (0.0-0.8) H 06/24/21 04:47 Eos # (Auto) 0.1 K/mm3 (0.0-0.4) 06/24/21 04:47 Baso # (Auto) 0.0 K/mm3 (0.0-0.1) 06/24/21 04:47 Seg Neutrophils % 58.2 % (40.0-70.0) 06/24/21 04:47 Seg Neutrophils # 3.4 K/mm3 (1.8-7.7) 06/24/21 04:47 PT 36.0 Sec. (12.2-14.9) H 06/22/21 13:59 INR 3.08 (0.87-1.13) H 06/22/21 13:59 APTT 49.4 Sec. (24.2-36.6) H 06/22/21 13:59 Sodium 143 mmol/L (137-145) 06/25/21 05:25 Potassium 3.3 mmol/L (3.6-5.0) L 06/25/21 05:25 Chloride 105.5 mmol/L (98-107) 06/25/21 05:25 Carbon Dioxide 27 mmol/L (22-30) 06/25/21 05:25 Anion Gap 14 mmol/L 06/25/21 05:25 BUN 5 mg/dL (7-17) L 06/25/21 05:25 Creatinine 0.4 mg/dL (0.6-1.2) L 06/25/21 05:25 Estimated GFR > 60 ml/min 06/25/21 05:25 BUN/Creatinine Ratio 13 % 06/25/21 05:25 Glucose 90 mg/dL (65-100) 06/25/21 05:25 Calcium 8.6 mg/dL (8.4-10.2) 06/25/21 05:25 Total Bilirubin 0.40 mg/dL (0.1-1.2) 06/23/21 07:31 Direct Bilirubin < 0.2 mg/dL (0-0.2) 06/22/21 13:59 Indirect Bilirubin 0.2 mg/dL 06/22/21 13:59 AST 12 units/L (5-40) 06/23/21 07:31 ALT 5 units/L (7-56) L 06/23/21 07:31 Alkaline Phosphatase 50 units/L (35-129) 06/23/21 07:31 NT-Pro-B Natriuret Pep 8914 pg/mL (0-900) H 06/22/21 13:59 Total Protein 4.9 g/dL (6.3-8.2) L 06/23/21 07:31 Albumin 2.6 g/dL (3.9-5) L 06/23/21 07:31 Albumin/Globulin Ratio 1.1 % 06/23/21 07:31 Lipase 14 units/L (13-60) 06/22/21 13:59 Blood Type O POSITIVE 06/22/21 13:59 Antibody Screen Negative 06/22/21 13:59 Antibody Identification Cancelled 06/22/21 13:59 Crossmatch See Detail 06/22/21 13:59 Monk/IV: Voiding Method External Female Catheter Active Medications - Current Medications Current Medications: Generic Name Dose Route Start Last Admin Trade Name Freq PRN Reason Stop Dose Admin Acetaminophen 650 mg 06/22/21 17:00 Acetaminophen 325 Mg Tab PO Q4H PRN Pain MILD(1-3)/Fever >100.5/SALAZAR Albuterol 2.5 mg 06/22/21 17:00 Albuterol 2.5 Mg/3 Ml Nebu IH Q3HRT PRN Shortness Of Breath Atorvastatin Calcium 40 mg 06/23/21 22:00 06/24/21 22:31 Atorvastatin 40 Mg Tab PO 40 mg QHS GIA Administration Calcium Carbonate/Glycine 1,250 mg 06/24/21 22:00 06/25/21 10:23 Calcium Carbonate 1250 Mg Tab PO 1,250 mg BID IGA Administration Diphenoxylate HCl/Atropine 1 tab 06/25/21 09:00 06/25/21 10:23 Diphenoxylate/Atropine Tab PO 1 tab Q2H PRN Administration Diarrhea Furosemide 40 mg 06/24/21 18:00 06/25/21 07:30 Furosemide 40 Mg/4 Ml Inj IV 40 mg 0600,1800 GIA Administration Hydromorphone HCl 0.5 mg 06/22/21 17:00 Hydromorphone 1 Mg/1 Ml Inj IV Q3H PRN Pain , Severe (7-10) Morphine Sulfate 2 mg 06/22/21 17:00 Morphine 2 Mg/1 Ml Inj IV Q4H PRN Pain, Moderate (4-6) Ondansetron HCl 4 mg 06/22/21 17:00 Ondansetron 4 Mg/2 Ml Inj IV Q3H PRN Nausea And Vomiting Phenyleph/Shark Oil/Min Oil/Petrol 1 applic 06/24/21 22:46 06/25/21 02:28 Pe/Mo/Pet,Wh 10 Applic/28 Gm Tube [place] 1 applic Q6HR PRN Administration Hemorrhoids Sodium Chloride 10 ml 06/22/21 22:00 06/25/21 10:23 Sodium Chloride 0.9% 10 Ml Flush Syringe IV 10 ml BID GIA Administration Sodium Chloride 10 ml 06/22/21 17:00 Sodium Chloride 0.9% 10 Ml Flush Syringe IV PRN PRN LINE FLUSH Vancomycin HCl 125 mg 06/25/21 12:00 06/25/21 12:27 Vancomycin 250 Mg/10 Ml Oral Liqd PO 07/01/21 07:59 125 mg Q6HR GIA Administration Protocol
[2021-06-25 14:02] LABS: Chol/HDL Ratio 2.83 %
[2021-06-25] MEDS: PANTOPRAZOLE 40 MG TAB PO SCH (15:28)
[2021-06-25] MEDS: ACETAMINOPHEN 325 MG TAB PO PRN (21:16)
[2021-06-26] MEDS: DIPHENOXYLATE/ATROPINE TAB PO PRN ×3 (02:22→13:39)
[2021-06-26 05:38] LABS: Blood Urea Nitrogen 7 mg/dL (7-17); Calcium 8.7 mg/dL (8.4-10.2); Hemolysis Index 1
[2021-06-26 05:39] LABS: BUN/Creatinine Ratio 14
[2021-06-26] MEDS: VANCOMYCIN 250 MG/10 ML ORAL LIQD PO SCH ×4 (06:27→23:17)
[2021-06-26] MEDS: PE/MO/PET,WH 10 APPLIC/28 GM TUBE PR PRN (06:27)
[2021-06-26] MEDS: FUROSEMIDE 40 MG/4 ML INJ IV SCH ×2 (06:27→18:34)
[2021-06-26 07:48] LABS: Hematocrit 28.5 % (30.3-42.9); Hemoglobin 8.9 gm/dl (10.1-14.3)
[2021-06-26] MEDS ORDERED: POTASSIUM CHLORIDE ER 20 MEQ TAB PO SCH (08:00)
[2021-06-26] MEDS: PANTOPRAZOLE 40 MG TAB PO SCH (09:09)
[2021-06-26] MEDS: CALCIUM CARBONATE 1250 MG TAB PO SCH ×3 (09:10→23:18)
[2021-06-26] MEDS ORDERED: PE/MO/PET,WH 10 APPLIC/28 GM TUBE PR PRN (11:00)
--- NOTE | 2021-06-26 11:29 | Event Note ---
Date: 06/26/21 Patient had a mechanical thrombectomy of bilateral lower extremities as well as her inferior vena cava. She has completed approximately 3 months of anticoagulation. Her venous duplex, performed 06/23/2021, demonstrates no evidence of DVT. She had a previous placement of an IVC filter and adequate position is confirmed on CTA of the abdomen and pelvis. If the patient cannot tolerate anticoagulation, secondary to GI bleeding, the IVC filter is in place for PE protection. Would recommend SCD and ANGIE Hose, for her lower extremities, to reduce the risk of DVT. Given her minimal activity/ambulation she is at increased risk of DVT in the future so would recommend Xarelto 10 mg po daily, for prophylaxis, when or if her bleeding risk decreases. This should be continued, indefinitely, until her activity has increased.
--- NOTE | 2021-06-26 12:06 | Progress Note ---
Assessment and Plan Assessment and plan: #Lower GI bleedresolved #Hematocheziaresolved #Possible ulcerative colitis versus Crohn's Hemoglobin 6.5 --> 7.3--> 8.2 Status posttransfusion 2 units packed RBC trend H&H daily. Discontinuing IV pantoprazole 40 mg twice daily. Continue regular diet. Gastroenterology consulted; appreciate recs CT abdomen/pelvis (per GI recommendation) revealing relatively unchanged c olitis from March 2021. Continue to monitor #Acute hypoxic respiratory failureresolved - etiology: Possible heart failure - baseline oxygen requirements: Room air - supplemental oxygen: 2 L nasal cannula - Continue protocol: continue pulse oximetry, wean oxygen as tolerated, ordered incentive spirometry and educated patient on how to use it and its importance, IV Lasix 40 mg twice daily - Walk test: Unable to perform given patient is bedbound - continue to monitor #Possible heart failureruled out #Volume overloadimproving Pro BNP 8914 Ordering TTE to evaluate EF. Continue IV Lasix 40 mg twice daily for volume control and to improve respiratory status. We will consider consulting cardiology if patient is found to have heart fa ilure. #Chronic diarrhea #Possible C. difficile infection C. difficile PCR ordered. Prior hospital records revealing high likelihood of C. difficile infection. Gastroenterology consulted; appreciate recs Continue IV Flagyl 500 mg every 8 hours and continue p.o. vancomycin to 50 mg 4 times daily for total of 7 days (completes on 06/30/2021) #Hypokalemiaimproving Potassium 3.0--> 3.3--> 3.4 Repleted. Continue to monitor with BMP. #Elevated blood pressure Holding initiation of antihypertensives to see if blood pressure improves with IV diuresis. If still uncontrolled, will initiate blood pressure medications tomorrow. - SBP goal <160 and DBP goal <90 while inpatient - continue to monitor #Hypernatremiaresolved Sodium 148 Continue to monitor with daily BMP. #History of pulmonary embolism #History of DVT Currently holding home Xarelto 20 mg daily in the setting of lower GI bleed Consulted vascular surgery regarding anticoagulation; appreciate recs. Starting Xarelto 10 mg daily, and the patient will be watched for approximately 48 hours to ensure bleeding does not restart. #GERD Starting pantoprazole 40 mg daily #Chronic COPDstable Continue DuoNebs and albuterol as needed #Hyperlipidemia Pending lipid panel Continue atorvastatin 40 mg daily. Will discontinue if lipid panel was unremarkable. #Hypocalcemia Calcium 8.1 Repleted. Continue to monitor. #Advanced care planning -Disease education conducted, care plan discussed, diagnoses discussed, prognosis discussed, and patient acknowledges understanding with care plan -Time: +30 min #Discharge planning - Patient is pending 48 hours without bleeding while on anticoagulation - Case management has been made aware. - Discharge is tentatively 06/29/1910/10/2021 or 06/29/2021. Disposition Plan: Continue medical management Total Time Spent with Patient (Minutes): 45 minutes History Interval history: No acute events overnight. Hospitalist Physical - Constitutional Vitals: Temp Pulse Resp BP Pulse Ox 98.6 F 103 H 16 99/56 95 06/26/21 11:31 06/26/21 11:31 06/26/21 11:31 06/26/21 11:31 06/26/21 11:31 General appearance: Present: no acute distress, well-nourished, other (Bedbound) - EENT Eyes: Present: PERRL, EOM intact ENT: hearing intact, clear oral mucosa, dentition normal - Neck Neck: Present: supple, normal ROM - Respiratory Respiratory effort: normal Respiratory: bilateral: CTA - Cardiovascular Rhythm: regular Heart Sounds: Present: S1 & S2 - Extremities Extremities: no ischemia, pulses intact, pulses symmetrical, normal temperature, normal color Extremity abnormal: edema (1+ pitting edema bilateral lower extremities), other (Bedbound with decreased range of motion) Peripheral Pulses: within normal limits - Abdominal General gastrointestinal: soft, non-tender, non-distended, normal bowel sounds, other (External hemorrhoids) - Integumentary Integumentary: Present: clear, warm, dry - Psychiatric Psychiatric: appropriate mood/affect, intact judgment & insight, memory intact, cooperative - Neurologic Neurologic: CNII-XII intact, moves all extremities - Allied Health Allied health notes reviewed: nursing Results - Labs CBC & Chem 7: 06/26/21 07:35 06/26/21 04:49 Labs: Laboratory Last Values WBC 5.8 K/mm3 (4.5-11.0) 06/24/21 04:47 RBC 3.23 M/mm3 (3.65-5.03) L 06/24/21 04:47 Hgb 8.9 gm/dl (10.1-14.3) L 06/26/21 07:35 Hct 28.5 % (30.3-42.9) L 06/26/21 07:35 MCV 82 fl (79-97) 06/24/21 04:47 MCH 25 pg (28-32) L 06/24/21 04:47 MCHC 31 % (30-34) 06/24/21 04:47 RDW 19.7 % (13.2-15.2) H 06/24/21 04:47 Plt Count 506 K/mm3 (140-440) H 06/24/21 04:47 Lymph % (Auto) 24.0 % (13.4-35.0) 06/24/21 04:47 [place] % (Auto) 15.5 % (0.0-7.3) H 06/24/21 04:47 Eos % (Auto) 1.7 % (0.0-4.3) 06/24/21 04:47 Baso % (Auto) 0.6 % (0.0-1.8) 06/24/21 04:47 Lymph # (Auto) 1.4 K/mm3 (1.2-5.4) 06/24/21 04:47 [place] # (Auto) 0.9 K/mm3 (0.0-0.8) H 06/24/21 04:47 Eos # (Auto) 0.1 K/mm3 (0.0-0.4) 06/24/21 04:47 Baso # (Auto) 0.0 K/mm3 (0.0-0.1) 06/24/21 04:47 Seg Neutrophils % 58.2 % (40.0-70.0) 06/24/21 04:47 Seg Neutrophils # 3.4 K/mm3 (1.8-7.7) 06/24/21 04:47 PT 36.0 Sec. (12.2-14.9) H 06/22/21 13:59 INR 3.08 (0.87-1.13) H 06/22/21 13:59 APTT 49.4 Sec. (24.2-36.6) H 06/22/21 13:59 Sodium 144 mmol/L (137-145) 06/26/21 04:49 Potassium 3.4 mmol/L (3.6-5.0) L 06/26/21 04:49 Chloride 105.8 mmol/L (98-107) 06/26/21 04:49 Carbon Dioxide 29 mmol/L (22-30) 06/26/21 04:49 Anion Gap 13 mmol/L 06/26/21 04:49 BUN 7 mg/dL (7-17) 06/26/21 04:49 Creatinine 0.5 mg/dL (0.6-1.2) L 06/26/21 04:49 Estimated GFR > 60 ml/min 06/26/21 04:49 BUN/Creatinine Ratio 14 % 06/26/21 04:49 Glucose 81 mg/dL (65-100) 06/26/21 04:49 Calcium 8.7 mg/dL (8.4-10.2) 06/26/21 04:49 Total Bilirubin 0.40 mg/dL (0.1-1.2) 06/23/21 07:31 Direct Bilirubin < 0.2 mg/dL (0-0.2) 06/22/21 13:59 Indirect Bilirubin 0.2 mg/dL 06/22/21 13:59 AST 12 units/L (5-40) 06/23/21 07:31 ALT 5 units/L (7-56) L 06/23/21 07:31 Alkaline Phosphatase 50 units/L (35-129) 06/23/21 07:31 NT-Pro-B Natriuret Pep 8914 pg/mL (0-900) H 06/22/21 13:59 Total Protein 4.9 g/dL (6.3-8.2) L 06/23/21 07:31 Albumin 2.6 g/dL (3.9-5) L 06/23/21 07:31 Albumin/Globulin Ratio 1.1 % 06/23/21 07:31 Triglycerides 72 mg/dL (2-149) 06/25/21 05:25 Cholesterol 102 mg/dL (50-199) 06/25/21 05:25 LDL Cholesterol Direct 47 mg/dL (50-130) L 06/25/21 05:25 HDL Cholesterol 36 mg/dL (40-59) L 06/25/21 05:25 Cholesterol/HDL Ratio 2.83 % 06/25/21 05:25 Lipase 14 units/L (13-60) 06/22/21 13:59 Blood Type O POSITIVE 06/22/21 13:59 Antibody Screen Negative 06/22/21 13:59 Antibody Identification Cancelled 06/22/21 13:59 Crossmatch See Detail 06/22/21 13:59 Microbiology: Microbiology 06/23/21 19:34 Stool - Stool Aspirate Stool Culture - Preliminary Monk/IV: Voiding Method External Female Catheter Active Medications - Current Medications Current Medications: Generic Name Dose Route Start Last Admin Trade Name Freq PRN Reason Stop Dose Admin Acetaminophen 650 mg 06/22/21 17:00 06/25/21 21:16 Acetaminophen 325 Mg Tab PO 650 mg Q4H PRN Administration Pain MILD(1-3)/Fever >100.5/SALAZAR Albuterol 2.5 mg 06/22/21 17:00 Albuterol 2.5 Mg/3 Ml Nebu IH Q3HRT PRN Shortness Of Breath Calcium Carbonate/Glycine 1,250 mg 06/24/21 22:00 06/26/21 09:10 Calcium Carbonate 1250 Mg Tab PO 1,250 mg BID GIA Administration Diphenoxylate HCl/Atropine 1 tab 06/25/21 09:00 06/26/21 06:27 Diphenoxylate/Atropine Tab PO 1 tab Q2H PRN Administration Diarrhea Furosemide 40 mg 06/24/21 18:00 06/26/21 06:27 Furosemide 40 Mg/4 Ml Inj IV 40 mg 0600,1800 GIA Administration Hydromorphone HCl 0.5 mg 06/22/21 17:00 Hydromorphone 1 Mg/1 Ml Inj IV Q3H PRN Pain , Severe (7-10) Morphine Sulfate 2 mg 06/22/21 17:00 Morphine 2 Mg/1 Ml Inj IV Q4H PRN Pain, Moderate (4-6) Ondansetron HCl 4 mg 06/22/21 17:00 Ondansetron 4 Mg/2 Ml Inj IV Q3H PRN Nausea And Vomiting Pantoprazole Sodium 40 mg 06/25/21 13:00 06/26/21 09:09 Pantoprazole 40 Mg Tab PO 40 mg QDAC GIA Administration Phenyleph/Shark Oil/Min Oil/Petrol 1 applic 06/26/21 11:00 Pe/Mo/Pet,Wh 10 Applic/28 Gm Tube [place] Q4HR PRN Hemorrhoids Rivaroxaban 10 mg 06/26/21 12:00 Rivaroxaban 10 Mg Tab PO QDAY GIA Protocol Sodium Chloride 10 ml 06/22/21 22:00 06/26/21 09:10 Sodium Chloride 0.9% 10 Ml Flush Syringe IV 10 ml BID GIA Administration Sodium Chloride 10 ml 06/22/21 17:00 Sodium Chloride 0.9% 10 Ml Flush Syringe IV PRN PRN LINE FLUSH Vancomycin HCl 125 mg 06/25/21 12:00 06/26/21 06:27 Vancomycin 250 Mg/10 Ml Oral Liqd PO 07/01/21 07:59 125 mg Q6HR GIA Administration Protocol
[2021-06-26] MEDS: RIVAROXABAN 10 MG TAB PO SCH (12:52)
--- NOTE | 2021-06-26 14:40 | Gastroenterology Progress Note ---
Assessment and Plan 1. Bloody diarrhea/colitis - suspect c diff +/- underlying IBD/UC?. hematochezia remains resolved. complete course of po vanc. noted plans for restarting eliquis ppx dose per vascular. will need close f/u in gi clinic (1 week after discharge). Subjective Date of service: 06/26/21 Principal diagnosis: bloody diarrhea Interval history: hematochezia remains resolved, still with diarrhea, tolerating po Objective - Constitutional Vitals: Temp Pulse Resp BP Pulse Ox 98.6 F 103 H 16 99/56 95 06/26/21 11:31 06/26/21 11:31 06/26/21 11:31 06/26/21 11:31 06/26/21 11:31 General appearance: no acute distress - Respiratory Respiratory effort: normal Respiratory: bilateral: CTA - Cardiovascular Rhythm: regular Heart Sounds: Present: S1 & S2 - Gastrointestinal General gastrointestinal: Present: soft, non-tender - Labs CBC & Chem 7: 06/26/21 07:35 06/26/21 04:49 Labs: Laboratory Results - last 24 hr 06/26/21 06/26/21 04:49 07:35 Hgb 8.9 L Hct 28.5 L Sodium 144 Potassium 3.4 L Chloride 105.8 Carbon Dioxide 29 Anion Gap 13 BUN 7 Creatinine 0.5 L Estimated GFR > 60 BUN/Creatinine Ratio 14 Glucose 81 Calcium 8.7
[2021-06-26] MEDS: ACETAMINOPHEN 325 MG TAB PO PRN (20:44)
[2021-06-27 03:42] LABS: Hematocrit 28.3 % (30.3-42.9); Hemoglobin 8.7 gm/dl (10.1-14.3)
[2021-06-27 04:05] LABS: Blood Urea Nitrogen 7 mg/dL (7-17); Calcium 8.1 mg/dL (8.4-10.2); Hemolysis Index 10
[2021-06-27 04:10] LABS: BUN/Creatinine Ratio 10
[2021-06-27] MEDS ORDERED: SODIUM CHLORIDE 0.9% 500 ML 500 ML IV ONE (06:20)
[2021-06-27] MEDS: VANCOMYCIN 250 MG/10 ML ORAL LIQD PO SCH ×3 (06:34→17:54)
[2021-06-27] MEDS: FUROSEMIDE 40 MG/4 ML INJ IV SCH (06:40)
[2021-06-27] MEDS ORDERED: LACTATED RINGERS 1,000 ML IV ONE (07:46)
[2021-06-27] MEDS: PANTOPRAZOLE 40 MG TAB PO SCH (08:48)
[2021-06-27] MEDS: CALCIUM CARBONATE 1250 MG TAB PO SCH ×3 (08:50→21:01)
--- NOTE | 2021-06-27 09:41 | Gastroenterology Progress Note ---
Assessment and Plan 1. Bloody diarrhea/colitis - suspect c diff +/- underlying IBD/UC?. eliquis resumed at lower dose per vascular recommendations. ? scant hematochezia this AM, H/H stable, unclear significance of bleeding. can resume current dose of AC from gi stand point with close monitoring. if H/H drops or continued bleeding, then would have failed AC trial in that case. complete course of po vanc. consider trial of budesonide for possible underlying IBD/UC after po vanc course. will need close f/u in gi clinic (Dr Gupta) within 1 week after d ischarge. Subjective Date of service: 06/27/21 Principal diagnosis: bloody diarrhea Interval history: pt reports having episode of possible hematochezia this AM (states it had "pumpkin" like appearance?). H/H stable, diarrhea persists Objective - Constitutional Vitals: Temp Pulse Resp BP Pulse Ox 98.3 F 99 H 20 103/55 93 06/27/21 07:35 06/27/21 07:35 06/27/21 04:24 06/27/21 07:35 06/27/21 07:35 General appearance: no acute distress - Respiratory Respiratory effort: normal Respiratory: bilateral: CTA - Cardiovascular Rhythm: regular Heart Sounds: Present: S1 & S2 - Gastrointestinal General gastrointestinal: Present: soft, non-tender - Labs CBC & Chem 7: 06/27/21 03:01 06/27/21 03:01 Labs: Laboratory Results - last 24 hr 06/27/21 06/27/21 03:01 03:01 Hgb 8.7 L Hct 28.3 L Sodium 142 Potassium 3.8 Chloride 102.9 Carbon Dioxide 25 Anion Gap 18 BUN 7 Creatinine 0.7 Estimated GFR > 60 BUN/Creatinine Ratio 10 Glucose 103 H Calcium 8.1 L
[2021-06-27] MEDS: RIVAROXABAN 10 MG TAB PO SCH (11:37)
--- NOTE | 2021-06-27 12:46 | Consultation ---
History of Present Illness - Reason for Consult Consult date: 06/27/21 anticoagulation and colitis with dvt history Requesting physician: PRANAV SALINAS - History of Present Illness 66-year-old female with past medical history of colitis, DVTs, PE, and IVC filter placement who originally was at [facility] for colitis and had IVC filter placement for pulmonary embolism due to inability to anticoagulate due to colitis, and then presented at [facility] where she had to have a pulmonary artery thrombectomy due to worsening shortness of breath and was anticoagulated. She then represented after running out of anticoagulation and developing IVC thrombus and femoral vein thrombus which was treated with thrombectomy. She has been on anticoagulation since then and has had no recurrent thromboembolic events. She has had chronic diarrhea which has been seen by GI multiple times. There is concern now for C. difficile colitis. Vascular is being consulted for the bright red blood per rectum with anticoagulation. Past History Past Medical History: DVT Past Surgical History: Other (IVC filter) Social history: no significant social history Family history: no significant family history Medications and Allergies Allergies Allergy/AdvReac Type Severity Reaction Status Date / Time lisinopril Allergy Severe Anaphylaxis Verified 06/23/21 13:53 Home Medications Medication Instructions Recorded Confirmed Last Taken Type Diphenoxylate/Atropine [Lomotil] 1 tab PO TID PRN 06/23/21 06/23/21 06/20/21 History Rivaroxaban [Xarelto] 20 mg PO QDAY 06/23/21 06/23/21 06/20/21 History Calcium Carbonate [Oscal 1250MG 1,250 mg PO BID #60 tablet 06/26/21 Unknown Rx TAB] Active Meds: Active Medications Acetaminophen (Acetaminophen 325 Mg Tab) 650 mg PO Q4H PRN PRN Reason: Pain MILD(1-3)/Fever >100.5/SALAZAR Last Admin: 06/26/21 20:44 Dose: 650 mg Albuterol (Albuterol 2.5 Mg/3 Ml Nebu) 2.5 mg IH Q3HRT PRN PRN Reason: Shortness Of Breath Calcium Carbonate/Glycine (Calcium Carbonate 1250 Mg Tab) 1,250 mg PO BID GIA Last Admin: 06/27/21 09:06 Dose: Not Given Diphenoxylate HCl/Atropine (Diphenoxylate/Atropine Tab) 1 tab PO Q2H PRN PRN Reason: Diarrhea Last Admin: 06/26/21 13:39 Dose: 1 tab Hydromorphone HCl (Hydromorphone 1 Mg/1 Ml Inj) 0.5 mg IV Q3H PRN PRN Reason: Pain , Severe (7-10) Morphine Sulfate (Morphine 2 Mg/1 Ml Inj) 2 mg IV Q4H PRN PRN Reason: Pain, Moderate (4-6) Ondansetron HCl (Ondansetron 4 Mg/2 Ml Inj) 4 mg IV Q3H PRN PRN Reason: Nausea And Vomiting Pantoprazole Sodium (Pantoprazole 40 Mg Tab) 40 mg PO QDAC [facility] Last Admin: 06/27/21 08:48 Dose: 40 mg Phenyleph/Shark Oil/Min Oil/Petrol (Pe/Mo/Pet,Wh 10 Applic/28 Gm Tube) 1 applic IN Q4HR PRN PRN Reason: Hemorrhoids Last Admin: 06/26/21 19:00 Dose: 1 applic Rivaroxaban (Rivaroxaban 10 Mg Tab) 10 mg PO QDAY [facility]; Protocol Last Admin: 06/27/21 11:37 Dose: Not Given Sodium Chloride (Sodium Chloride 0.9% 10 Ml Flush Syringe) 10 ml IV BID [facility] Last Admin: 06/27/21 09:06 Dose: Not Given Sodium Chloride (Sodium Chloride 0.9% 10 Ml Flush Syringe) 10 ml IV PRN PRN PRN Reason: LINE FLUSH Vancomycin HCl (Vancomycin 250 Mg/10 Ml Oral Liqd) 125 mg PO Q6HR [facility]; Protocol Stop: 07/01/21 07:59 Last Admin: 06/27/21 12:24 Dose: 125 mg Review of Systems All systems: negative (see HPI) Exam - Constitutional Vitals: Temp Pulse Resp BP Pulse Ox 99.5 F 105 H 18 109/63 96 06/27/21 12:28 06/27/21 12:28 06/27/21 11:00 06/27/21 12:28 06/27/21 12:28 General appearance: Present: no acute distress - EENT Eyes: Present: EOM intact ENT: hearing intact - Extremities Extremities: pulses intact, normal temperature, normal color Extremity abnormal: edema (1+ edema bilaterally) Peripheral Pulses: within normal limits - Abdominal General gastrointestinal: Present: other (Multiple bouts of diarrhea) - Psychiatric Psychiatric: appropriate mood/affect, cooperative Results - Labs CBC & Chem 7: 06/27/21 03:01 06/27/21 03:01 Labs: Abnormal lab results 06/27/21 06/27/21 Range/Units 03:01 03:01 Hgb 8.7 L (10.1-14.3) gm/dl Hct 28.3 L (30.3-42.9) % Glucose 103 H (65-100) mg/dL Calcium 8.1 L (8.4-10.2) mg/dL Assessment and Plan 66-year-old female with extensive thromboembolic history with IVC filter status post thrombectomies of the pulmonary arteries and IVC and iliofemoral DVTs. Patient was on anticoagulation for this. She is currently having a GI bleed. She has completed full dose anticoagulation for 3 months and can be transition to Xarelto 10 mg p.o. 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 Recommend ANGIE vallejo and SCDs in the interim to try to prevent another deep venous thrombus. Discussed with patient who understands. She will eventually require IVC filter removal which I discussed with her.
[2021-06-27] MEDS ORDERED: LIDOCAINE (4%) 40 MG/ML TOPICAL SOLN 50 ML BOTTLE TP PRN (12:56)
--- NOTE | 2021-06-27 13:06 | Progress Note ---
Assessment and Plan Assessment and plan: #Lower GI bleedresolved #Hematocheziaresolved #Possible ulcerative colitis versus Crohn's Hemoglobin 6.5 --> 7.3--> 8.2 Status posttransfusion 2 units packed RBC trend H&H daily. Discontinuing IV pantoprazole 40 mg twice daily. Continue regular diet. Gastroenterology consulted; appreciate recs CT abdomen/pelvis (per GI recommendation) revealing relatively unchanged c olitis from March 2021. Continue to monitor #Acute hypoxic respiratory failureresolved - etiology: Possible heart failure - baseline oxygen requirements: Room air - supplemental oxygen: 2 L nasal cannula - Continue protocol: continue pulse oximetry, wean oxygen as tolerated, ordered incentive spirometry and educated patient on how to use it and its importance, IV Lasix 40 mg twice daily - Walk test: Unable to perform given patient is bedbound - continue to monitor #Possible heart failureruled out #Volume overloadimproving Pro BNP 8914 TTE unremarkable Continue IV Lasix 40 mg twice daily for volume control and to improve respirato ry status. We will consider consulting cardiology if patient is found to have heart failure. #Chronic diarrhea #Possible C. difficile infection C. difficile PCR ordered. Prior hospital records revealing high likelihood of C. difficile infection. Gastroenterology consulted; appreciate recs Continue p.o. vancomycin to 50 mg 4 times daily for total of 14 days (completes on 07/06/2021) #Hypokalemiaresolved Potassium 3.0--> 3.3--> 3.4 Repleted. Continue to monitor with BMP. #Elevated blood pressureresolved Holding initiation of antihypertensives to see if blood pressure improves with IV diuresis. If still uncontrolled, will initiate blood pressure medications tomorrow. - SBP goal <160 and DBP goal <90 while inpatient - continue to monitor #Hypernatremiaresolved Sodium 148 Continue to monitor with daily BMP. #History of pulmonary embolism #History of DVT Currently holding home Xarelto 20 mg daily in the setting of lower GI bleed Consulted vascular surgery regarding anticoagulation; appreciate recs. Starting Xarelto 10 mg daily, and the patient will be watched for approximately 48 hours to ensure bleeding does not restart. #GERD Continue pantoprazole 40 mg daily #Chronic COPDstable Continue DuoNebs and albuterol as needed #Hyperlipidemiahold Pending lipid panel Continue atorvastatin 40 mg daily. Will discontinue if lipid panel was unremarkable. #Hypocalcemia Calcium 8.1 Repleted. Continue to monitor. #Advanced care planning -Disease education conducted, care plan discussed, diagnoses discussed, prognosis discussed, and patient acknowledges understanding with care plan -Time: +30 min #Discharge planning - Patient is pending 48 hours without bleeding while on anticoagulation - Case management has been made aware. - Discharge is tentatively 06/29/2021. Disposition Plan: Continue medical management Total Time Spent with Patient (Minutes): 45 min History Interval history: Patient endorsed having mild hematochezia this morning. Hospitalist Physical - Constitutional Vitals: Temp Pulse Resp BP Pulse Ox 99.5 F 105 H 18 109/63 96 06/27/21 12:28 06/27/21 12:28 06/27/21 11:00 06/27/21 12:28 06/27/21 12:28 General appearance: Present: no acute distress, well-nourished, obese - EENT Eyes: Present: PERRL, EOM intact ENT: hearing intact, clear oral mucosa, dentition normal - Neck Neck: Present: supple, normal ROM - Respiratory Respiratory effort: normal Respiratory: bilateral: diminished - Cardiovascular Rhythm: regular Heart Sounds: Present: S1 & S2 - Extremities Extremities: no ischemia, pulses intact, pulses symmetrical, normal temperature, normal color Extremity abnormal: edema (1+ pitting edema bilateral lower extremities to knees) Peripheral Pulses: within normal limits - Abdominal General gastrointestinal: soft, non-tender, non-distended, normal bowel sounds - Integumentary Integumentary: Present: clear, warm, dry - Psychiatric Psychiatric: appropriate mood/affect, intact judgment & insight, memory intact, cooperative - Neurologic Neurologic: CNII-XII intact, moves all extremities - Allied Health Allied health notes reviewed: nursing Results - Labs CBC & Chem 7: 06/27/21 03:01 06/27/21 03:01 Labs: Laboratory Last Values WBC 5.8 K/mm3 (4.5-11.0) 06/24/21 04:47 RBC 3.23 M/mm3 (3.65-5.03) L 06/24/21 04:47 Hgb 8.7 gm/dl (10.1-14.3) L 06/27/21 03:01 Hct 28.3 % (30.3-42.9) L 06/27/21 03:01 MCV 82 fl (79-97) 06/24/21 04:47 MCH 25 pg (28-32) L 06/24/21 04:47 MCHC 31 % (30-34) 06/24/21 04:47 RDW 19.7 % (13.2-15.2) H 06/24/21 04:47 Plt Count 506 K/mm3 (140-440) H 06/24/21 04:47 Lymph % (Auto) 24.0 % (13.4-35.0) 06/24/21 04:47 Schuyler % (Auto) 15.5 % (0.0-7.3) H 06/24/21 04:47 Eos % (Auto) 1.7 % (0.0-4.3) 06/24/21 04:47 Baso % (Auto) 0.6 % (0.0-1.8) 06/24/21 04:47 Lymph # (Auto) 1.4 K/mm3 (1.2-5.4) 06/24/21 04:47 Schuyler # (Auto) 0.9 K/mm3 (0.0-0.8) H 06/24/21 04:47 Eos # (Auto) 0.1 K/mm3 (0.0-0.4) 06/24/21 04:47 Baso # (Auto) 0.0 K/mm3 (0.0-0.1) 06/24/21 04:47 Seg Neutrophils % 58.2 % (40.0-70.0) 06/24/21 04:47 Seg Neutrophils # 3.4 K/mm3 (1.8-7.7) 06/24/21 04:47 PT 36.0 Sec. (12.2-14.9) H 06/22/21 13:59 INR 3.08 (0.87-1.13) H 06/22/21 13:59 APTT 49.4 Sec. (24.2-36.6) H 06/22/21 13:59 Sodium 142 mmol/L (137-145) 06/27/21 03:01 Potassium 3.8 mmol/L (3.6-5.0) 06/27/21 03:01 Chloride 102.9 mmol/L (98-107) 06/27/21 03:01 Carbon Dioxide 25 mmol/L (22-30) 06/27/21 03:01 Anion Gap 18 mmol/L 06/27/21 03:01 BUN 7 mg/dL (7-17) 06/27/21 03:01 Creatinine 0.7 mg/dL (0.6-1.2) 06/27/21 03:01 Estimated GFR > 60 ml/min 06/27/21 03:01 BUN/Creatinine Ratio 10 % 06/27/21 03:01 Glucose 103 mg/dL (65-100) H 06/27/21 03:01 Calcium 8.1 mg/dL (8.4-10.2) L 06/27/21 03:01 Total Bilirubin 0.40 mg/dL (0.1-1.2) 06/23/21 07:31 Direct Bilirubin < 0.2 mg/dL (0-0.2) 06/22/21 13:59 Indirect Bilirubin 0.2 mg/dL 06/22/21 13:59 AST 12 units/L (5-40) 06/23/21 07:31 ALT 5 units/L (7-56) L 06/23/21 07:31 Alkaline Phosphatase 50 units/L (35-129) 06/23/21 07:31 NT-Pro-B Natriuret Pep 8914 pg/mL (0-900) H 06/22/21 13:59 Total Protein 4.9 g/dL (6.3-8.2) L 06/23/21 07:31 Albumin 2.6 g/dL (3.9-5) L 06/23/21 07:31 Albumin/Globulin Ratio 1.1 % 06/23/21 07:31 Triglycerides 72 mg/dL (2-149) 06/25/21 05:25 Cholesterol 102 mg/dL (50-199) 06/25/21 05:25 LDL Cholesterol Direct 47 mg/dL (50-130) L 06/25/21 05:25 HDL Cholesterol 36 mg/dL (40-59) L 06/25/21 05:25 Cholesterol/HDL Ratio 2.83 % 06/25/21 05:25 Lipase 14 units/L (13-60) 06/22/21 13:59 Blood Type O POSITIVE 06/22/21 13:59 Antibody Screen Negative 06/22/21 13:59 Antibody Identification Cancelled 06/22/21 13:59 Crossmatch See Detail 06/22/21 13:59 Microbiology: Microbiology 06/23/21 19:34 Stool - Stool Aspirate Stool Culture - Final Monk/IV: Voiding Method External Female Catheter Active Medications - Current Medications Current Medications: Generic Name Dose Route Start Last Admin Trade Name Freq PRN Reason Stop Dose Admin Acetaminophen 650 mg 06/22/21 17:00 06/26/21 20:44 Acetaminophen 325 Mg Tab PO 650 mg Q4H PRN Administration Pain MILD(1-3)/Fever >100.5/SALAZAR Albuterol 2.5 mg 06/22/21 17:00 Albuterol 2.5 Mg/3 Ml Nebu IH Q3HRT PRN Shortness Of Breath Calcium Carbonate/Glycine 1,250 mg 06/24/21 22:00 06/27/21 09:06 Calcium Carbonate 1250 Mg Tab PO Not Given BID GIA Diphenoxylate HCl/Atropine 1 tab 06/25/21 09:00 06/26/21 13:39 Diphenoxylate/Atropine Tab PO 1 tab Q2H PRN Administration Diarrhea Hydromorphone HCl 0.5 mg 06/22/21 17:00 Hydromorphone 1 Mg/1 Ml Inj IV Q3H PRN Pain , Severe (7-10) Lidocaine HCl 2.5 ml 06/27/21 12:56 Lidocaine (4%) 40 Mg/Ml Topical Soln 50 Ml Bottle TP PRN PRN Rash Morphine Sulfate 2 mg 06/22/21 17:00 Morphine 2 Mg/1 Ml Inj IV Q4H PRN Pain, Moderate (4-6) Ondansetron HCl 4 mg 06/22/21 17:00 Ondansetron 4 Mg/2 Ml Inj IV Q3H PRN Nausea And Vomiting Pantoprazole Sodium 40 mg 06/25/21 13:00 06/27/21 08:48 Pantoprazole 40 Mg Tab PO 40 mg QDAC GIA Administration Phenyleph/Shark Oil/Min Oil/Petrol 1 applic 06/26/21 11:00 06/26/21 19:00 Pe/Mo/Pet,Wh 10 Applic/28 Gm Tube VA 1 applic Q4HR PRN Administration Hemorrhoids Rivaroxaban 10 mg 06/26/21 13:00 06/27/21 11:37 Rivaroxaban 10 Mg Tab PO Not Given QDAY GIA Protocol Sodium Chloride 10 ml 06/22/21 22:00 06/27/21 09:06 Sodium Chloride 0.9% 10 Ml Flush Syringe IV Not Given BID GAI Sodium Chloride 10 ml 06/22/21 17:00 Sodium Chloride 0.9% 10 Ml Flush Syringe IV PRN PRN LINE FLUSH Vancomycin HCl 125 mg 06/25/21 12:00 06/27/21 12:24 Vancomycin 250 Mg/10 Ml Oral Liqd PO 07/01/21 07:59 125 mg Q6HR [facility] Administration Protocol
[2021-06-27] MEDS: ACETAMINOPHEN 325 MG TAB PO PRN (17:53)
[2021-06-28] MEDS: VANCOMYCIN 250 MG/10 ML ORAL LIQD PO SCH ×5 (00:03→23:02)
[2021-06-28 05:42] LABS: Hematocrit 25.6 % (30.3-42.9); Hemoglobin 7.9 gm/dl (10.1-14.3)
[2021-06-28 06:05] LABS: Blood Urea Nitrogen 8 mg/dL (7-17); Calcium 8.3 mg/dL (8.4-10.2); Hemolysis Index 2
[2021-06-28 06:06] LABS: BUN/Creatinine Ratio 16
[2021-06-28] MEDS ORDERED: POTASSIUM CHLORIDE ER 20 MEQ TAB PO ONE (08:00)
[2021-06-28] MEDS: PANTOPRAZOLE 40 MG TAB PO SCH (10:37)
[2021-06-28] MEDS: RIVAROXABAN 10 MG TAB PO SCH (10:38)
[2021-06-28] MEDS: CALCIUM CARBONATE 1250 MG TAB PO SCH ×2 (10:40→21:00)
--- NOTE | 2021-06-28 11:24 | Gastroenterology Progress Note ---
Assessment and Plan Differential diagnosis is either chronic infectious colitis or chronic inflammatory colitis such as inflammatory bowel disease Patient was started on p.o. Vanco empirically for possible recurrent C. difficile diarrhea on the fifth. Her anticoagulation is being held. Plan is to monitor her symptoms closely for the next 24 hours and determine if bleeding increases or decreases with these interventions. If she has worsening bloody diarrhea will need to start steroids If however with continued antibiotics and cessation of anticoagulation her symptoms gradually improve then will finish course of antibiotics and hold off on steroids If cannot determine underlying cause may require repeat colonoscopy though timing will depend upon her clinical course Continue to trend hemoglobin daily - Patient Problems (1) Colitis Current Visit: Yes Status: Acute (2) Anemia Current Visit: Yes Status: Acute (3) Anticoagulated Current Visit: Yes Status: Acute (4) Diarrhea Current Visit: Yes Status: Acute (5) GI bleed Current Visit: Yes Status: Acute (6) Lower GI bleed Current Visit: Yes Status: Acute Subjective Date of service: 06/28/21 Principal diagnosis: bloody diarrhea Interval history: Patient reports no stool just blood per rectum today I looked at the contents in the trash can is she has been discarding her stool and wipes there, small amount of dark red clots seen with a little bit of stool that has some form to it Minimal abdominal tenderness Objective - Constitutional Vitals: Temp Pulse Resp BP Pulse Ox 100.7 F H 111 H 20 129/62 90 06/28/21 08:20 06/28/21 08:20 06/28/21 04:25 06/28/21 08:20 06/28/21 08:20 General appearance: no acute distress - EENT Eyes: EOM intact - Neck Neck: supple - Respiratory Respiratory effort: normal - Cardiovascular Rhythm: regular - Gastrointestinal General gastrointestinal: Present: soft, normal bowel sounds - Labs CBC & Chem 7: 06/28/21 04:53 06/28/21 04:53 Labs: Laboratory Results - last 24 hr 06/28/21 06/28/21 04:53 04:53 Hgb 7.9 L Hct 25.6 L Sodium 144 Potassium 3.5 L Chloride 106.9 Carbon Dioxide 29 Anion Gap 12 BUN 8 Creatinine 0.5 L Estimated GFR > 60 BUN/Creatinine Ratio 16 Glucose 86 Calcium 8.3 L
--- NOTE | 2021-06-28 12:40 | Progress Note ---
Assessment and Plan Assessment and plan: #Lower GI bleedresolved #Hematocheziaresolved #Possible ulcerative colitis versus Crohn's versus infectious colitis Hemoglobin 6.5 --> 7.3--> 8.2 Status posttransfusion 2 units packed RBC trend H&H daily. Discontinuing IV pantoprazole 40 mg twice daily. Continue regular diet. Gastroenterology consulted; appreciate recs CT abdomen/pelvis (per GI recommendation) revealing relatively unchanged colitis from March 2021. Continue to monitor #Acute hypoxic respiratory failureresolved - etiology: Possible heart failure - baseline oxygen requirements: Room air - supplemental oxygen: 2 L nasal cannula - Continue protocol: continue pulse oximetry, wean oxygen as tolerated, ordered incentive spirometry and educated patient on how to use it and its importance, IV Lasix 40 mg twice daily - Walk test: Unable to perform given patient is bedbound - continue to monitor #Possible heart failureruled out #Volume overloadimproving Pro BNP 8914 TTE unremarkable Continue IV Lasix 40 mg twice daily for volume control and to improve respiratory status. We will consider consulting cardiology if patient is found to have heart failure. #Chronic diarrheaimproving #Presumed C. difficile infection C. difficile PCR ordered. Prior hospital records revealing high likelihood of C. difficile infection. Gastroenterology consulted; appreciate recs Continue p.o. vancomycin to 50 mg 4 times daily for total of 14 days (completes on 07/08/2021) #Hypokalemiaresolved Potassium 3.0--> 3.3--> 3.4 Repleted. Continue to monitor with BMP. #Elevated blood pressureresolved Holding initiation of antihypertensives to see if blood pressure improves with IV diuresis. If still uncontrolled, will initiate blood pressure medications tomorrow. - SBP goal <160 and DBP goal <90 while inpatient - continue to monitor #Hypernatremiaresolved Sodium 148 Continue to monitor with daily BMP. #History of pulmonary embolism #History of DVT Currently holding home Xarelto 20 mg daily in the setting of lower GI bleed Consulted vascular surgery regarding anticoagulation; appreciate recs. Discontinued Xarelto 10 mg daily. The patient will follow-up with vascular surgery in outpatient setting as to when to restart anticoagulation. #GERD Continue pantoprazole 40 mg daily #Chronic COPDstable Continue DuoNebs and albuterol as needed #Hyperlipidemiahold Pending lipid panel Continue atorvastatin 40 mg daily. Will discontinue if lipid panel was unremarkable. #Hypocalcemia Calcium 8.1 Repleted. Continue to monitor. #Advanced care planning -Disease education conducted, care plan discussed, diagnoses discussed, prog nosis discussed, and patient acknowledges understanding with care plan -Time: +30 min #Discharge planning - Patient is pending ability to order outpatient p.o. vancomycin in order to allow patient to complete her antibiotic course. - Case management has been made aware. . Disposition Plan: Continue medical management Total Time Spent with Patient (Minutes): 45 minutes History Interval history: No acute events overnight. Hospitalist Physical - Constitutional Vitals: Temp Pulse Resp BP Pulse Ox 98.5 F 98 H 20 111/61 93 06/28/21 12:15 06/28/21 12:15 06/28/21 04:25 06/28/21 12:15 06/28/21 12:15 General appearance: Present: no acute distress, well-nourished, obese, other (Bedbound) - EENT Eyes: Present: PERRL, EOM intact ENT: hearing intact, clear oral mucosa, dentition normal - Neck Neck: Present: supple, normal ROM - Respiratory Respiratory effort: normal Respiratory: bilateral: CTA - Cardiovascular Rhythm: regular Heart Sounds: Present: S1 & S2 - Extremities Extremities: no ischemia, pulses intact, pulses symmetrical, normal temperature, normal color Extremity abnormal: edema (Trace edema bilateral lower extremities) Peripheral Pulses: within normal limits - Abdominal General gastrointestinal: soft, non-tender, non-distended, normal bowel sounds - Integumentary Integumentary: Present: clear, warm, dry - Psychiatric Psychiatric: appropriate mood/affect, intact judgment & insight, memory intact, cooperative - Neurologic Neurologic: CNII-XII intact, moves all extremities - Allied Health Allied health notes reviewed: nursing Results - Labs CBC & Chem 7: 06/28/21 04:53 06/28/21 04:53 Labs: Laboratory Last Values WBC 5.8 K/mm3 (4.5-11.0) 06/24/21 04:47 RBC 3.23 M/mm3 (3.65-5.03) L 06/24/21 04:47 Hgb 7.9 gm/dl (10.1-14.3) L 06/28/21 04:53 Hct 25.6 % (30.3-42.9) L 06/28/21 04:53 MCV 82 fl (79-97) 06/24/21 04:47 MCH 25 pg (28-32) L 06/24/21 04:47 MCHC 31 % (30-34) 06/24/21 04:47 RDW 19.7 % (13.2-15.2) H 06/24/21 04:47 Plt Count 506 K/mm3 (140-440) H 06/24/21 04:47 Lymph % (Auto) 24.0 % (13.4-35.0) 06/24/21 04:47 Forest % (Auto) 15.5 % (0.0-7.3) H 06/24/21 04:47 Eos % (Auto) 1.7 % (0.0-4.3) 06/24/21 04:47 Baso % (Auto) 0.6 % (0.0-1.8) 06/24/21 04:47 Lymph # (Auto) 1.4 K/mm3 (1.2-5.4) 06/24/21 04:47 Forest # (Auto) 0.9 K/mm3 (0.0-0.8) H 06/24/21 04:47 Eos # (Auto) 0.1 K/mm3 (0.0-0.4) 06/24/21 04:47 Baso # (Auto) 0.0 K/mm3 (0.0-0.1) 06/24/21 04:47 Seg Neutrophils % 58.2 % (40.0-70.0) 06/24/21 04:47 Seg Neutrophils # 3.4 K/mm3 (1.8-7.7) 06/24/21 04:47 PT 36.0 Sec. (12.2-14.9) H 06/22/21 13:59 INR 3.08 (0.87-1.13) H 06/22/21 13:59 APTT 49.4 Sec. (24.2-36.6) H 06/22/21 13:59 Sodium 144 mmol/L (137-145) 06/28/21 04:53 Potassium 3.5 mmol/L (3.6-5.0) L 06/28/21 04:53 Chloride 106.9 mmol/L (98-107) 06/28/21 04:53 Carbon Dioxide 29 mmol/L (22-30) 06/28/21 04:53 Anion Gap 12 mmol/L 06/28/21 04:53 BUN 8 mg/dL (7-17) 06/28/21 04:53 Creatinine 0.5 mg/dL (0.6-1.2) L 06/28/21 04:53 Estimated GFR > 60 ml/min 06/28/21 04:53 BUN/Creatinine Ratio 16 % 06/28/21 04:53 Glucose 86 mg/dL (65-100) 06/28/21 04:53 Calcium 8.3 mg/dL (8.4-10.2) L 06/28/21 04:53 Total Bilirubin 0.40 mg/dL (0.1-1.2) 06/23/21 07:31 Direct Bilirubin < 0.2 mg/dL (0-0.2) 06/22/21 13:59 Indirect Bilirubin 0.2 mg/dL 06/22/21 13:59 AST 12 units/L (5-40) 06/23/21 07:31 ALT 5 units/L (7-56) L 06/23/21 07:31 Alkaline Phosphatase 50 units/L (35-129) 06/23/21 07:31 NT-Pro-B Natriuret Pep 8914 pg/mL (0-900) H 06/22/21 13:59 Total Protein 4.9 g/dL (6.3-8.2) L 06/23/21 07:31 Albumin 2.6 g/dL (3.9-5) L 06/23/21 07:31 Albumin/Globulin Ratio 1.1 % 06/23/21 07:31 Triglycerides 72 mg/dL (2-149) 06/25/21 05:25 Cholesterol 102 mg/dL (50-199) 06/25/21 05:25 LDL Cholesterol Direct 47 mg/dL (50-130) L 06/25/21 05:25 HDL Cholesterol 36 mg/dL (40-59) L 06/25/21 05:25 Cholesterol/HDL Ratio 2.83 % 06/25/21 05:25 Lipase 14 units/L (13-60) 06/22/21 13:59 Blood Type O POSITIVE 06/22/21 13:59 Antibody Screen Negative 06/22/21 13:59 Antibody Identification Cancelled 06/22/21 13:59 Crossmatch See Detail 06/22/21 13:59 Monk/IV: Voiding Method Incontinent Active Medications - Current Medications Current Medications: Generic Name Dose Route Start Last Admin Trade Name Freq PRN Reason Stop Dose Admin Acetaminophen 650 mg 06/22/21 17:00 06/27/21 17:53 Acetaminophen 325 Mg Tab PO 650 mg Q4H PRN Administration Pain MILD(1-3)/Fever >100.5/SALAZAR Albuterol 2.5 mg 06/22/21 17:00 Albuterol 2.5 Mg/3 Ml Nebu IH Q3HRT PRN Shortness Of Breath Calcium Carbonate/Glycine 1,250 mg 06/24/21 22:00 06/27/21 21:01 Calcium Carbonate 1250 Mg Tab PO 1,250 mg BID GIA Administration Diphenoxylate HCl/Atropine 1 tab 06/25/21 09:00 06/26/21 13:39 Diphenoxylate/Atropine Tab PO 1 tab Q2H PRN Administration Diarrhea Hydromorphone HCl 0.5 mg 06/22/21 17:00 Hydromorphone 1 Mg/1 Ml Inj IV Q3H PRN Pain , Severe (7-10) Lidocaine HCl 2.5 ml 06/27/21 12:56 06/27/21 13:33 Lidocaine (4%) 40 Mg/Ml Topical Soln 50 Ml Bottle TP 2.5 ml PRN PRN Administration Rash Morphine Sulfate 2 mg 06/22/21 17:00 Morphine 2 Mg/1 Ml Inj IV Q4H PRN Pain, Moderate (4-6) Ondansetron HCl 4 mg 06/22/21 17:00 Ondansetron 4 Mg/2 Ml Inj IV Q3H PRN Nausea And Vomiting Pantoprazole Sodium 40 mg 06/25/21 13:00 06/28/21 10:37 Pantoprazole 40 Mg Tab PO 40 mg QDAC GIA Administration Phenyleph/Shark Oil/Min Oil/Petrol 1 applic 06/26/21 11:00 06/26/21 19:00 Pe/Mo/Pet,Wh 10 Applic/28 Gm Tube NC 1 applic Q4HR PRN Administration Hemorrhoids Sodium Chloride 10 ml 06/22/21 22:00 06/27/21 21:02 Sodium Chloride 0.9% 10 Ml Flush Syringe IV 10 ml BID GIA Administration Sodium Chloride 10 ml 06/22/21 17:00 Sodium Chloride 0.9% 10 Ml Flush Syringe IV PRN PRN LINE FLUSH Vancomycin HCl 125 mg 06/25/21 12:00 06/28/21 05:13 Vancomycin 250 Mg/10 Ml Oral Liqd PO 07/08/21 07:59 125 mg Q6HR GIA Administration Protocol
[2021-06-28] MEDS: ACETAMINOPHEN 325 MG TAB PO PRN (22:00)
[2021-06-29] MEDS: VANCOMYCIN 250 MG/10 ML ORAL LIQD PO SCH ×2 (05:34→11:27)
[2021-06-29 05:51] LABS: Hematocrit 26.5 % (30.3-42.9); Hemoglobin 8.1 gm/dl (10.1-14.3)
[2021-06-29 06:13] LABS: BUN/Creatinine Ratio 12; Blood Urea Nitrogen 6 mg/dL (7-17); Hemolysis Index 7
[2021-06-29] MEDS ORDERED: CALCIUM CHLORIDE 1,000 MG/10 ML SYRINGE IV ONE (07:31)
--- NOTE | 2021-06-29 09:39 | Gastroenterology Progress Note ---
Assessment and Plan Patient clinically improving. Hemoglobin stable. Therefore recommend complete course of p.o. Vanco for suspected recurrent C. difficile diarrhea She should follow-up in the office with Dr. Gupta in the next 1 to 2 weeks Regarding anticoagulation may consider resuming if she is high risk to be off anticoagulation for the next few weeks; however if she is low risk to be off of anticoagulation would recommend waiting until she sees her rotating equipment engineer as an outpatient - Patient Problems (1) Colitis Current Visit: Yes Status: Acute (2) Anemia Current Visit: Yes Status: Acute (3) Anticoagulated Current Visit: Yes Status: Acute (4) Diarrhea Current Visit: Yes Status: Acute (5) GI bleed Current Visit: Yes Status: Acute (6) Lower GI bleed Current Visit: Yes Status: Acute Subjective Date of service: 06/29/21 Principal diagnosis: bloody diarrhea Interval history: Patient reports stools are improving, formed, few episodes small amount of bright red blood however in general improving today Denies abdominal pain today Objective - Constitutional Vitals: Temp Pulse Resp BP Pulse Ox 98.6 F 91 H 18 115/69 93 06/29/21 07:14 06/29/21 07:14 06/29/21 07:14 06/29/21 07:14 06/29/21 08:56 General appearance: no acute distress - EENT Eyes: EOM intact - Respiratory Respiratory effort: normal - Cardiovascular Rhythm: regular - Gastrointestinal General gastrointestinal: Present: soft, non-tender, normal bowel sounds - Labs CBC & Chem 7: 06/29/21 04:29 06/29/21 04:29 Labs: Laboratory Results - last 24 hr 06/29/21 06/29/21 04:29 04:29 Hgb 8.1 L Hct 26.5 L Sodium 145 Potassium 3.7 Chloride 108.0 H Carbon Dioxide 26 Anion Gap 15 BUN 6 L Creatinine 0.5 L Estimated GFR > 60 BUN/Creatinine Ratio 12 Glucose 84 Calcium 8.0 L
[2021-06-29] MEDS: PANTOPRAZOLE 40 MG TAB PO SCH (09:43)
[2021-06-29] MEDS: CALCIUM CARBONATE 1250 MG TAB PO SCH (09:43)
--- NOTE | 2021-06-29 11:05 | Discharge Summary ---
Providers - Providers Date of Admission: 06/22/21 16:24 Date of discharge: 06/29/21 Attending physician: PRANAV SALINAS MD 06/22/21 15:47 Consult to Physician [CONS] Stat Comment: Consulting Provider: BRY TRAORE Physician Instructions: Reason For Exam: gi bleed 06/26/21 10:57 Consult to Physician [CONS] Routine Comment: Consulting Provider: MELISSA FLEMING Physician Instructions: Reason For Exam: Anticoagulation + colitis with bleeding + h/o DVT Primary care physician: CORE JAVA ENGINEER Hospitalization Reason for admission: Symptomatic blood loss anemia, hematochezia Condition: Serious Pertinent studies: Reviewed. Procedures: None. 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 The patient had seen her outpatient editor index the week prior to presentation, and he initiated her on antibiotics (Flagyl and ciprofloxacin) for treatment of her chronic diarrhea. On presentation, patient was found to be hemodynamically stable with a hemoglobin of 6.5. The patient was transfused 2 units packed RBCs. Patient was admitted for further management. Gastroenterology was consulted for further assistance. In the setting of chronic diarrhea, C. difficile PCR was ordered in addition to stool cultures. The patient was preemptively started on p.o. vancomycin every 6 hours for presumed C. difficile infection. Due to the patient's increased risk of developing DVT, vascular surgery was consulted regarding anticoagulation. They initially recommended starting Xarelto 10 mg daily (half dose); however, the patient continued to bleed resulting in cessation of anticoagulation. The patient will follow-up with vascular surgery (Dr. Mittal) to determine the best course of action rega rding anticoagulation. The patient's hematochezia has significantly improved in addition to her diarrhea. Diarrhea is no longer watery; instead, her stools are softer and less in frequency. The patient will continue p.o. vancomycin for total of 14-day course (due to concern of C. difficile infection for approximately 8 months). The patient will be discharged on p.o. vancomycin tabs to be taken twice daily and completed on 07/08/2021. Patient will follow-up with gastroenterology in the outpatient setting. Patient expresses understanding. Disposition: 30 STILL A PATIENT Final Discharge Diagnosis (Prints w/discharge instructions): Lower GI bleed, hematochezia, symptomatic blood loss anemia, colitis of unknown origin, acute hypoxic respiratory failure, chronic diarrhea, presumed C. difficile infection, hypokalemia, elevated blood pressure, hypernatremia, history of pulmonary embolism, history of DVT, GERD, chronic COPD, hyperlipidemia, hypocalcemia, obesity. Time spent for discharge: 45 min Core Measure Documentation - Palliative Care Palliative Care/ Comfort Measures: Not Applicable - Core Measures Any of the following diagnoses?: none Exam - Constitutional Vitals: Temp Pulse Resp BP Pulse Ox 98.6 F 91 H 18 115/69 93 06/29/21 07:14 06/29/21 07:14 06/29/21 07:14 06/29/21 07:14 06/29/21 08:56 General appearance: Present: no acute distress, well-nourished, obese - EENT Eyes: Present: PERRL, EOM intact ENT: hearing intact, clear oral mucosa, dentition normal - Neck Neck: Present: supple, normal ROM - Respiratory Respiratory effort: normal Respiratory: bilateral: CTA - Cardiovascular Rhythm: regular Heart Sounds: Present: S1 & S2 - Extremities Extremities: no ischemia, pulses intact, pulses symmetrical, normal temperature, normal color, Full ROM Extremity abnormal: edema (Trace edema bilateral lower extremities) Peripheral Pulses: within normal limits - Abdominal General gastrointestinal: Present: soft, non-tender, non-distended, normal bowel sounds Female genitourinary: Present: deferred - Rectal Rectal Exam: deferred - Integumentary Integumentary: Present: clear, warm, dry - Musculoskeletal Musculoskeletal: generalized weakness - Psychiatric Psychiatric: appropriate mood/affect, intact judgment & insight, memory intact, cooperative - Neurologic Neurologic: CNII-XII intact, moves all extremities - Allied Health Allied health notes reviewed: nursing Plan Activity: advance as tolerated Diet: regular Additional Instructions: Patient is a 66-year-old female with past medical history of chronic iron deficiency anemia, chronic diarrhea, history of pulmona ry embolism, 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 The patient had seen her outpatient editor index the week prior to presentation, and he initiated her on antibiotics (Flagyl and ciprofloxacin) for treatment of her chronic diarrhea. On presentation, patient was found to be hemodynamically stable with a hemoglobin of 6.5. The patient was transfused 2 units packed RBCs. Patient was admitted for further management. Gastroenterology was consulted for further assistance. In the setting of chronic diarrhea, C. difficile PCR was ordered in addition to stool cultures. The patient was preemptively started on p.o. vancomycin every 6 hours for presumed C. difficile infection. Due to the patient's increased risk of developing DVT, vascular surgery was consulted regarding anticoagulation. They initially recommended starting Xarelto 10 mg daily (half dose); however, the patient continued to bleed resulting in cessation of anticoagulation. The patient will follow-up with vascular surgery (Dr. Mittal) to determine the best course of action regarding anticoagulation. The patient's hematochezia has significantly improved in addition to her diarrhea. Diarrhea is no longer watery; instead, her stools are softer and less in frequency. The patient will continue p.o. vancomycin for total of 14-day course (due to concern of C. difficile infection for approximately 8 months). The patient will be discharged on p.o. vancomycin tabs to be taken twice daily and completed on 07/08/2021. Patient will follow-up with gastroenterology in the outpatient setting. Patient expresses understanding. Care Plan Goals: Patient is medically clear for discharge. 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 The patient had seen her outpatient editor index the week prior to presentation, and he initiated her on antibiotics (Flagyl and ciprofloxacin) for treatment of her chronic diarrhea. On presentation, patient was found to be hemodynamically stable with a hemoglobin of 6.5. The patient was transfused 2 units packed RBCs. Patient was admitted for further management. Gastroenterology was consulted for further assistance. In the setting of chronic diarrhea, C. difficile PCR was ordered in addition to stool cultures. The patient was preemptively started on p.o. vancomycin every 6 hours for presumed C. difficile infection. Due to the patient's increased risk of developing DVT, vascular surgery was consulted regarding anticoagulation. They initially recommended starting Xarelto 10 mg daily (half dose); however, the patient continued to bleed resulting in cessation of anticoagulation. The patient will follow-up with vascular surgery (Dr. Mittal) to determine the best course of action regarding anticoagulation. The patient's hematochezia has significantly improved in addition to her diarrhea. Diarrhea is no longer watery; instead, her stools are softer and less in frequency. The patient will continue p.o. vancomycin for total of 14-day course (due to concern of C. difficile infection for approximately 8 months). The patient will be discharged on p.o. vancomycin tabs to be taken twice daily and completed on 07/08/2021. Patient will follow-up with gastroenterology in the outpatient setting. Patient expresses understanding. Follow up with: PRIMARY CARE, [Primary Care Provider] - 3-5 Days Prescriptions: Calcium Carbonate [Oscal 1250MG TAB] 1,250 mg PO BID #60 tablet Vancomycin 125 mg PO Q6HR #300 bottle
[2021-06-29 16:30] VITALS: BP 113/66
== END 2021-06-29 16:43 | disposition home or self-care (01) | DRG 377 ==
LOC: ED 12:56 → 4A 16:24
PROVIDERS: ADMIT Internal Medicine; ATTEND Student in an Organized Health Care Education/Training Program
PROC: 30233N1 Transfusion of Nonautologous Red Blood Cells into Peripheral Vein, Percutaneous Approach (ICD-10-PCS; principal; 2021-06-22)
DX: K92.2 Gastrointestinal hemorrhage, unspecified (principal); J96.01 Acute respiratory failure with hypoxia; E87.0 Hyperosmolality and hypernatremia; I82.413 Acute embolism and thrombosis of femoral vein, bilateral; I82.423 Acute embolism and thrombosis of iliac vein, bilateral; I42.0 Dilated cardiomyopathy; I47.2 Ventricular tachycardia; K62.5 Hemorrhage of anus and rectum; E87.6 Hypokalemia; K52.9 Noninfective gastroenteritis and colitis, unspecified; D64.9 Anemia, unspecified; J44.9 Chronic obstructive pulmonary disease, unspecified; I27.20 Pulmonary hypertension, unspecified; E83.51 Hypocalcemia; E78.5 Hyperlipidemia, unspecified; K21.9 Gastro-esophageal reflux disease without esophagitis; Z86.711 Personal history of pulmonary embolism; D50.0 Iron deficiency anemia secondary to blood loss (chronic); E66.9 Obesity, unspecified; Z68.31 Body mass index [BMI] 31.0-31.9, adult
CPT/HCPCS: 36415; 71045; 74177; 80048; 80053; 80061; 80076; 83690; 83880; 85014; 85018; 85025; 85610; 85730; 86850; 86900; 86901; 86920; 87045; 93005; 93308; 93321; 93325; 93970; 94640; 94760; 96374; 96375; 99291; G0378; C9113; J1940; J3370; J3480; J7040; J7050; J7120; P9016; Q9967

== ENCOUNTER 2021-07-09 15:35 | Emergency (ER) | payer OTHER ==
[2021-07-09] MEDS ORDERED: SODIUM CHLORIDE 0.9% 1000 ML 1,000 ML IV ONE (19:32)
--- NOTE | 2021-07-09 20:00 | Emergency Department Report ---
ED General Adult HPI - General Chief complaint: Nausea/Vomiting/Diarrhea Stated complaint: LOOSE STOOLS/RECTAL BLEEDING Time Seen by Provider: 07/09/21 19:31 Source: EMS Mode of arrival: Stretcher Limitations: No Limitations - History of Present Illness Initial comments: 66 yo F with h/o chronic diarrhea for the last 8 months who now present with bloody diarrhea progressively worsening. No fever or chills reported. Pt reports that she has been evaluated by her GI specialist and was diagnosed with C-diff colitis her last admission to the hospital 2 weeks ago. No antibiotics use before symptoms started. She was sent home on antibiotics but with no i mprovement. Pt also reports some non bloody emesis as well. Pt is here today to be sure she does not need blood transfusion because she received 2 units of blood her last admission. Pt mentioned that she use to be on Xarelto the last 5 months due to her PE s/p embolectomy that was stopped 2 weeks ago. Pt denies any dizziness or lightheadedness. No other modifying or associated factors reported. Severity scale (0 -10): 0 - Related Data Home Medications Medication Instructions Recorded Confirmed Last Taken Diphenoxylate/Atropine [Lomotil] 1 tab PO TID PRN 06/23/21 06/23/21 06/20/21 Previous Rx's Medication Instructions Recorded Last Taken Type Calcium Carbonate [Oscal 1250MG 1,250 mg PO BID #60 tablet 06/26/21 Unknown Rx TAB] Vancomycin 125 mg PO Q6HR #300 bottle 06/29/21 Unknown Rx Ondansetron (Nf) [Zofran TAB] 8 mg PO Q8HR PRN 7 Days #21 tablet 07/09/21 Unknown Rx NS Pantoprazole [Protonix] 40 mg PO QDAY 30 Days #30 tablet NS 07/09/21 Unknown Rx Allergies Allergy/AdvReac Type Severity Reaction Status Date / Time lisinopril Allergy Severe Anaphylaxis Verified 06/23/21 13:53 ED Review of Systems ROS: Stated complaint: LOOSE STOOLS/RECTAL BLEEDING Other details as noted in HPI Comment: All other systems reviewed and negative Gastrointestinal: nausea, vomiting, diarrhea, hematemesis, hematochezia ED Past Medical Hx - Past Medical History Hx Hypertension: Yes Hx Diabetes: Yes Additional medical history: hemorrhoids that have been banded in the past per pt, HYPOKALEMIA, PE - Surgical History Additional Surgical History: Hemorrhoids banded spring 2020, IVC PLACEMENT - Social History Smoking Status: Never Smoker - Medications Home Medications: Home Medications Medication Instructions Recorded Confirmed Last Taken Type Diphenoxylate/Atropine [Lomotil] 1 tab PO TID PRN 06/23/21 06/23/21 06/20/21 History Calcium Carbonate [Oscal 1250MG 1,250 mg PO BID #60 tablet 06/26/21 Unknown Rx TAB] Vancomycin 125 mg PO Q6HR #300 bottle 06/29/21 Unknown Rx Ondansetron (Nf) [Zofran TAB] 8 mg PO Q8HR PRN 7 Days #21 tablet 07/09/21 Unknown Rx NS Pantoprazole [Protonix] 40 mg PO QDAY 30 Days #30 tablet NS 07/09/21 Unknown Rx ED Physical Exam - General Limitations: No Limitations General appearance: alert, in no apparent distress - Head Head exam: Present: atraumatic, normal inspection - Eye Eye exam: Present: normal appearance. Absent: scleral icterus, conjunctival injection Pupils: Present: normal accommodation - ENT ENT exam: Present: normal exam, normal orophraynx, mucous membranes moist - Neck Neck exam: Present: normal inspection, full ROM. Absent: tenderness, lymphadenopathy - Respiratory Respiratory exam: Present: normal lung sounds bilaterally. Absent: respiratory distress, accessory muscle use - Cardiovascular Cardiovascular Exam: Present: regular rate, normal rhythm, normal heart sounds - GI/Abdominal GI/Abdominal exam: Present: soft, normal bowel sounds. Absent: distended, tenderness, guarding - Extremities Exam Extremities exam: Present: normal inspection, full ROM, normal capillary refill. Absent: tenderness, pedal edema, joint swelling - Back Exam Back exam: Absent: tenderness - Neurological Exam Neurological exam: Present: alert, oriented X3 - Psychiatric Psychiatric exam: Present: normal affect, normal mood - Skin Skin exam: Present: warm, normal color ED Course Vital Signs 07/09/21 07/09/21 07/09/21 15:41 20:26 20:28 Temperature 98.0 F Pulse Rate 98 H 94 H Respiratory 16 17 14 Rate Blood Pressure 150/90 162/83 [Left] O2 Sat by Pulse 98 96 96 Oximetry - Reevaluation(s) Reevaluation #1: 07/09/21 20:06 here with chronic bloody diarrhea -- will check CBC and CMP with coag level -- for any acute anemia that will require blood transfusion -- Reevaluation #2: 07/09/21 21:16 Labs reviewed and noted this patient with H/H 8.8/29.3 which seems to be around her baseline or even slightly better than it was on 06/29 that was 8.1/26.5-- pt reassured and asked to call and keep an appointment with her distribution systems superintendent. ED Medical Decision Making - Lab Data Result diagrams: 07/09/21 19:45 07/09/21 19:45 Critical care attestation.: If time is entered above; I have spent that time in minutes in the direct care of this critically ill patient, excluding procedure time. ED Disposition Clinical Impression: GI bleeding Qualifiers: GI bleed type/associated pathology: unspecified gastrointestinal hemorrhage type Qualified Code(s): K92.2 - Gastrointestinal hemorrhage, unspecified Disposition: HOME / SELF CARE / HOMELESS Is pt being admited?: No Does the pt Need Aspirin: No Condition: Stable Instructions: Gastrointestinal Bleeding, [id number] Additional Instructions: Continue your current medication as prescribed by your primary doctor and your distribution systems superintendent Please call and schedule follow-up with your primary doctor/gastroenterology in the next 3 to 5 days for progress Please do not hesitate to call or return to emergency room if your symptoms worsen Prescriptions: Pantoprazole [Protonix] 40 mg PO QDAY 30 Days #30 tablet NS Ondansetron (Nf) [Zofran TAB] 8 mg PO Q8HR PRN 7 Days #21 tablet NS PRN Reason: Nausea Referrals: PRIMARY CARE, [Primary Care Provider] - 3-5 Days Time of Disposition: 21:18
[2021-07-09 20:16] LABS: Basophils # (Auto) 0.1 K/mm3 (0.0-0.1); Basophils % (Auto) 0.6 % (0.0-1.8); Eosinophils # (Auto) 0.3 K/mm3 (0.0-0.4); Eosinophils % (Auto) 3.3 % (0.0-4.3); Lymphocytes # (Auto) 1.4 K/mm3 (1.2-5.4); Mean Corpuscular HGB Conc 30 % (30-34); Mean Corpuscular Volume 80 fl (79-97); Monocytes # (Auto) 0.6 K/mm3 (0.0-0.8); Platelet Count 473 K/mm3 (140-440); Red Blood Count 3.65 M/mm3 (3.65-5.03)
[2021-07-09 20:22] LABS: Hematocrit 29.3 % (30.3-42.9); Hemoglobin 8.8 gm/dl (10.1-14.3); Red Cell Distribution Width 21.6 % (13.2-15.2)
[2021-07-09 20:27] LABS: INR 0.97 (0.87-1.13)
[2021-07-09 20:28] LABS: Partial Thromboplastin Time 23.2 Sec. (24.2-36.6)
[2021-07-09 20:29] VITALS: BP 162/83
[2021-07-09 20:29] LABS: Alanine Aminotransferase 7 units/L (7-56); Albumin 3.2 g/dL (3.9-5); Blood Urea Nitrogen 4 mg/dL (7-17); Calcium 9.4 mg/dL (8.4-10.2); Hemolysis Index 2
[2021-07-09 20:35] LABS: BUN/Creatinine Ratio 8
== END 2021-07-09 22:48 | disposition home or self-care (01) ==
LOC: ED 15:35
DX: K92.2 Gastrointestinal hemorrhage, unspecified (principal); I10 Essential (primary) hypertension; E11.9 Type 2 diabetes mellitus without complications; Z88.9 Allergy status to unspecified drugs, medicaments and biological substances
CPT/HCPCS: 36415; 80053; 82140; 83690; 85025; 85610; 85730; 96360; 99284; J7030